=== PATIENT | female | born 1960 | race Caucasian/White ===

== ENCOUNTER 2019-03-10 09:56 | Emergency (ER) | payer MEDICAID, SELFPAY ==
[2019-03-10 09:57] VITALS: BP 171/86; PULSE 87; RESP 24; TEMP 36.8; O2SAT 97; BMI 43.7
--- NOTE | 2019-03-10 10:06 | W.ED.CHESTPA ---
HPI - Chest Pain General: Chief Complaint: Chest Pain Stated Complaint: cp sob History of Present Illness: HPI narrative: 58 yo female presents with chest pain and shortness of breath. MD complaint: chest pain Severity: moderate PFSH ED PFSH: Statuses (acute, chronic, etc) shown below reflect problem list status as previously entered and may not be historically accurate Medical History (Updated 03/10/19 @ 10:08 by Remedios Landrum) Anxiety and depression (Acute) Essential (primary) hypertension (Acute) Hyperglycemia (Acute) Mixed hyperlipidemia (Acute) Vitamin D deficiency (Acute) Surgical History (Updated 03/10/19 @ 10:08 by Remedios Landrum) History of cholecystectomy (Acute) History of gastric bypass (Acute) History of heart artery stent (Acute) History of hip surgery (Acute) History of hysterectomy (Acute) Family History (Updated 03/09/19 @ 16:56 by PRATIBHA Menendez) Grandmother Hypertension Mother Hypertension Social History (Updated 03/09/19 @ 16:[address]) Smoking and tobacco status: current every day smoker Smoking risk assessment/counseling performed?: Yes Alcohol intake: current Alcohol intake frequency: 3 or more drinks per day Desire information about alcohol rehabilitation?: No Counseling given: Yes Substance/Drug Use: unknown Desire information about substance/drug rehabilitation?: No Counseling given: No Lives independently: Yes Marital status: Single Current occupational status: employed History of recent travel: No Current gender identity: Female Coding Level of Care Code ED Angle Shearer for Michael Pool
--- NOTE | 2019-03-10 10:24 | XR_ITS ---
WS: [id number] CHEST XRAY TECHNIQUE: Portable chest. CLINICAL INFORMATION: chest pain COMPARISON: 5018 FINDINGS: Heart: Cardiomegaly. Lungs: Chronic emphysematous changes. No acute pulmonary infiltrates. No focal pneumonia. Bones: Normal visualized bony structures. XR/XR chest 1V portable 17225 IMPRESSION: Stable cardiomegaly. No acute chest findings.
--- NOTE | 2019-03-10 10:26 | W.ED.CHESTPA ---
HPI - Chest Pain General: Chief Complaint: Chest Pain Stated Complaint: cp sob Time Seen by Provider: 03/10/19 10:19 Source: patient Mode of arrival: ambulatory Limitations: no limitations History of Present Illness: HPI narrative: Patient comes in this morning with complaints of being awakened 4:00 this morning with some shortness of breath-like symptoms. Patient then started dry heaving and retching. Patient was unable to hold anything down most of the morning except for her blood pressure medicine. Patient reports some chest discomfort but no significant pain. Patient was given in route by EMS a dose of Zofran and 2 doses of nitro, which seemed to help relieve her symptoms. Patient does report feeling better except reports that nausea seems to be coming back. Patient has a history of a cholecystectomy and stent placement 1 year ago. Associated symptoms: Reports dyspnea (resolved), nausea and vomiting Review of Systems General: Reports: 10 or more systems reviewed and unremarkable except in HPI and below Card: Reports: chest pain (discomfort) Resp: Reports: shortness of breath (resolved) GI: Reports: nausea and vomiting PFSH ED PFSH: Statuses (acute, chronic, etc) shown below reflect problem list status as previously entered and may not be historically accurate Medical History Anxiety and depression (Acute) Essential (primary) hypertension (Acute) Hyperglycemia (Acute) Mixed hyperlipidemia (Acute) Vitamin D deficiency (Acute) Surgical History History of cholecystectomy (Acute) History of gastric bypass (Acute) History of heart artery stent (Acute) History of hip surgery (Acute) History of hysterectomy (Acute) Family History Grandmother Hypertension Mother Hypertension Social History Smoking and tobacco status: current every day smoker Smoking risk assessment/counseling performed?: Yes Alcohol intake: current Alcohol intake frequency: 3 or more drinks per day Desire information about alcohol rehabilitation?: No Counseling given: Yes Desire information about substance/drug rehabilitation?: No Counseling given: No Lives independently: Yes Marital status: Single Current occupational status: employed History of recent travel: No Current gender identity: Female Physical Exam Const: COMMON NORMALS: no apparent distress and oriented x3 GENERAL APPEARANCE: cooperative HENMT: COMMON NORMALS: normocephalic, external ears normal, EAC's normal, TM's normal bilaterally and external nose normal HEAD & SCALP: normal to inspection and normocephalic FACE & SINUS: normal facial exam NOSE: external nose normal GENERAL EAR: hearing not grossly impaired EXTERNAL EAR: Yes external ears normal EXTERNAL AUDITORY CANAL: EAC's normal TYMPANIC MEMBRANE: TM's normal bilaterally MOUTH: oral and palatal mucosa normal THROAT: posterior oropharynx normal Eye: COMMON NORMALS: PERRL and EOMs intact bilaterally PUPIL: Yes PERRL Neck/C-Spine: COMMON NORMALS: full ROM and no lymphadenopathy Lymph: LYMPHATIC: no lymphedema noted Chest: COMMONS NORMALS: inspection of chest normal and palpation of chest normal Resp: COMMON NORMALS: normal respiratory effort and clear to auscultation bilaterally AUSCULTATION: clear to auscultation bilaterally Cardio: COMMON NORMALS: regular rate and regular rhythm RATE: regular rate RHYTHM: regular rhythm GI: COMMON NORMALS: normal to inspection, nondistended, normoactive bowel sounds, soft to palpation and non-tender PALPATION: Yes soft and Yes tender (mild epigastric) : COMMON NORMALS: Yes no CVA tenderness BLADDER/KIDNEY EXAM: Yes no CVA tenderness Back/Pelvis: COMMON NORMALS: no CVA tenderness and thoracic and lumbar spine normal to inspection Extremity: COMMON NORMALS: normal to inspection GENERAL: No edema Neuro: COMMON NORMALS: oriented x3, moves all extremities and no focal motor deficits Psych: COMMON NORMALS: mental status grossly normal and cooperative Skin: COMMON NORMALS: no rashes or lesions noted GENERAL SKIN EXAM: no rashes or lesions noted Course ED course: 1133, patient was better but had increase nausea with wretching, and epigastric pain, patient ordered benadryl, reglan and fentanyl for distress. wjw 1212, patient resting well, states relief in discomfort. Reviewed labs and recommendation for CT to rule out PE, mesenteric clot, or other diagnosis that maybe causing distress. wjw 1324, patient continues to have symptom relief, reviewed completed exam and need for follow-up, patient agreed. wjw Vital Signs: Vital signs: Vital Signs Temperature 98.2 F 03/10/19 09:57 Pulse Rate 71 03/10/19 10:58 Respiratory Rate 17 03/10/19 10:58 Blood Pressure 131/83 03/10/19 10:58 Pulse Oximetry 95 03/10/19 10:58 MDM - Chest Pain MDM Narrative: Medical decision making narrative: Patient was brought in by EMS today for complaints of chest discomfort and persistent nausea and vomiting. Exam noted respirations are even lungs are clear to auscultation. Abdomen was tender in the epigastric area. Bowel sounds were present throughout. No CVA tenderness. No swelling in lower extremities. Vital signs were stable. Differential diagnosis included ACS, gastroenteritis, gastroesophageal reflux, pancreatitis, bowel obstruction, PE, mesenteric emboli, dissecting aorta, substance withdrawal. Laboratory values were insignificant. No change was noted in the troponin. Patient was given IV fluids for mild dehydration, and was medicated with anti-emetic and medication for pain. Patient had improvement in overall symptoms and had full relief prior to discharge. We will continue patient on medication for nausea with recommendations for dietary changes. Patient reports understanding and agreed to plan with need to follow-up. Differential Diagnosis: Cardiac arrest differential diagnosis: Likely acute myocardial infarction; Unlikely acute massive pulmonary embolism, acute respiratory failure, cardiac arrest and sudden cardiac Lab Data: Labs: Lab Results 03/10/19 03/10/19 03/10/19 Range/Units 10:36 10:36 10:36 WBC 10.6 H (4.0-10.0) 10^3/ uL RBC 4.51 (4.1-5.3) 10^6/u L Hgb 12.7 (11.5-15.3) g/dL Hct 39.8 (37.0-47.0) % MCV 88.2 (81-99) fL MCH 28.2 (28.0-34.0) pg MCHC 31.9 (30.0-36.0) g/dL RDW 15.8 H (12.1-15.1) % Plt Count 238 (130-400) 10^3/c mm MPV 10.3 (7.4-10.4) fL Neut % (Auto) 76.1 % Lymph % (Auto) 14.3 % [place] % (Auto) 8.3 % Eos % (Auto) 0.7 % Baso % (Auto) 0.3 % Neut # (Auto) 8.1 H (1.8-7.7) 10^3/u L Lymph # (Auto) 1.5 (0.8-4.8) 10^3/u L [place] # (Auto) 0.9 (0.2-0.9) 10^3/u L Eos # (Auto) 0.1 (0.0-0.8) 10^3/u L Baso # (Auto) 0.0 (0.0-0.1) 10^3/u L Nucleated RBC % (a uto) 0 % Nucleated RBCs # 0.0 /100WBC Sodium 140 (136-145) mmol/L Potassium 3.4 L (3.5-5.1) mmol/L Chloride 103 (98-107) mmol/L Carbon Dioxide 22 (22-29) mmol/L Anion Gap 18.4 (5-19) BUN 10 (6-20) mg/dL Creatinine 0.6 (0.5-0.9) mg/dL GFR Calculation 102.3 (90-130) mL/min Glucose 126 H (74-109) mg/dL Calcium 9.1 (8.6-10.0) mg/Dl Total Bilirubin 0.4 (0.15-1.2) mg/dL AST 48 H (0-32) U/L ALT 28 (0-33) U/L Alkaline Phosphata se 99 (35-105) IU/L Troponin T Baselin e 17 H (0-10) ng/mL Troponin T 120 Min [place] (0-10) ng/mL Delta Troponin T (0-10) ABS# Total Protein 6.7 (6.6-8.7) g/dL Albumin 3.8 (3.5-5.2) g/dL Globulin 2.9 (1.3-4.6) g/dL Lipase 20 (13-60) U/L Ethyl Alcohol (0-10) mg/dL 03/10/19 03/10/19 Range/Units 10:36 12:55 WBC (4.0-10.0) 10^3/ uL RBC (4.1-5.3) 10^6/u L Hgb (11.5-15.3) g/dL Hct (37.0-47.0) % MCV (81-99) fL MCH (28.0-34.0) pg MCHC (30.0-36.0) g/dL RDW (12.1-15.1) % Plt Count (130-400) 10^3/c mm MPV (7.4-10.4) fL Neut % (Auto) % Lymph % (Auto) % [place] % (Auto) % Eos % (Auto) % Baso % (Auto) % Neut # (Auto) (1.8-7.7) 10^3/u L Lymph # (Auto) (0.8-4.8) 10^3/u L [place] # (Auto) (0.2-0.9) 10^3/u L Eos # (Auto) (0.0-0.8) 10^3/u L Baso # (Auto) (0.0-0.1) 10^3/u L Nucleated RBC % (a uto) % Nucleated RBCs # /100WBC Sodium (136-145) mmol/L Potassium (3.5-5.1) mmol/L Chloride (98-107) mmol/L Carbon Dioxide (22-29) mmol/L Anion Gap (5-19) BUN (6-20) mg/dL Creatinine (0.5-0.9) mg/dL GFR Calculation (90-130) mL/min Glucose (74-109) mg/dL Calcium (8.6-10.0) mg/Dl Total Bilirubin (0.15-1.2) mg/dL AST (0-32) U/L ALT (0-33) U/L Alkaline Phosphata se (35-105) IU/L Troponin T Baselin e (0-10) ng/mL Troponin T 120 Min [place] 12.91 H (0-10) ng/mL Delta Troponin T -4.09 L (0-10) ABS# Total Protein (6.6-8.7) g/dL Albumin (3.5-5.2) g/dL Globulin (1.3-4.6) g/dL Lipase (13-60) U/L Ethyl Alcohol < 10 (0-10) mg/dL EKG Data^: EKG 1: Attestation: I personally reviewed and interpreted this EKG as follows: (1033, NSR, regular rate of 73 bpm, no ectopy, no ST elevation. wjw) EKG 2: Attestation: I personally reviewed and interpreted this EKG as follows: (1220, NSR, rate 68 bpm, no ectopy, no QT elevation, no change from earlier EKG) Discharge Plan Discharge Patient Disposition: Home, Self-Care Clinical Impression: Atypical chest pain Nausea & vomiting Qualifiers: Vomiting type: unspecified Vomiting Intractability: unspecified Qualified Code(s): R11.2 - Nausea with vomiting, unspecified Condition: Stable Prescriptions: New ondansetron HCl 4 mg tablet 4 mg PO Q6H PRN (Reason: nausea and vomiting) Qty: 10 RF: 0 meclizine 25 mg tablet 25 mg PO TID PRN (Reason: nausea and vomiting) Qty: 20 RF: 0 No Action cyclobenzaprine 10 mg tablet 10 mg PO TID PRN (Reason: Muscle Spasm) RF: 0 vitamin E 1,000 unit Capsule 1,000 unit PO DAILY RF: 0 carvedilol 25 mg tablet 25 mg PO BID RF: 0 lisinopril 20 mg tablet 20 mg PO DAILY RF: 0 hydroxyzine pamoate 50 mg capsule 50 mg PO BID PRN (Reason: Anxiety) RF: 0 gabapentin 300 mg capsule See Rx Instructions .ROUTE .COMPLEX RF: 0 aspirin 81 mg Tablet,Chewable 81 mg PO DAILY RF: 0 lorazepam 1 mg tablet 1 mg PO QPM RF: 0 rosuvastatin 40 mg tablet 40 mg PO DAILY RF: 0 duloxetine 60 mg capsule,delayed release(DR/EC) 60 mg PO BID RF: 0 Discharge Orders: Discharge Order (Routine); Ordered 03/10/19 Ordered By: Claudy Driver Referrals: Jadiel Munoz, J[employer]IOR [employer] MANAGER-C [Primary Care Provider] - Discharge Diet: Advance as tolerated Discharge Activity: Increase activity as tolerated Activity Restrictions/Additional Instructions: Drink plenty of fluids Light diet Increase diet as tolerated Avoid greasy, spicy or acidic foods Follow-up with primary care in one week for recheck Return to ER for high fever or new concern Coding Level of Care Code ED Makeup Instructor for Michael Fwira Exam Problem Focused
[2019-03-10] MEDS: ondansetron 2 mg/ML SDV 2 mL 4 MG IVP (10:29)
[2019-03-10] MEDS: sodium chloride 0.9% 500 ML 999 ML IV (10:31)
[2019-03-10 10:41] LABS: Basophils % 0.3 %; Eosinophils # 0.1 10^3/uL (0.0-0.8); Eosinophils % 0.7 %; Hematocrit 39.8 % (37.0-47.0); Hemoglobin 12.7 g/dL (11.5-15.3); Lymphocytes # 1.5 10^3/uL (0.8-4.8); Lymphocytes % 14.3 %; Mean Corpuscular HGB Conc 31.9 g/dL (30.0-36.0); Mean Corpuscular Hemoglobin 28.2 pg (28.0-34.0); Mean Corpuscular Volume 88.2 fL (81-99); Mean Platelet Volume 10.3 fL (7.4-10.4); Monocytes # 0.9 10^3/uL (0.2-0.9); Monocytes % 8.3 %; Neutrophils # 8.1 10^3/uL (1.8-7.7); Neutrophils % 76.1 %; Nucleated Red Blood Cells % 0 %; Platelet Count 238 10^3/cmm (130-400); Red Blood Count 4.51 10^6/uL (4.1-5.3); Red Cell Distribution Width 15.8 % (12.1-15.1); White Blood Count 10.6 10^3/uL (4.0-10.0)
[2019-03-10] MEDS: pantoprazole 40 mg SDV IVP (10:42)
[2019-03-10 10:57] LABS: Alanine Aminotransferase 28 U/L (0-33); Albumin Level 3.8 g/dL (3.5-5.2); Alkaline Phosphatase 99 IU/L (35-105); Anion Gap 18.4 (5-19); Aspartate Amino Transferase 48 U/L (0-32); Blood Urea Nitrogen 10 mg/dL (6-20); Calcium 9.1 mg/Dl (8.6-10.0); Carbon Dioxide 22 mmol/L (22-29); Chloride 103 mmol/L (98-107); Globulin 2.9 g/dL (1.3-4.6); Glomerular Filtration Rate 102.3 mL/min (90-130); Glucose 126 mg/dL (74-109); Lipase 20 U/L (13-60); Potassium 3.4 mmol/L (3.5-5.1); Sodium 140 mmol/L (136-145); Total Bilirubin 0.4 mg/dL (0.15-1.2); Total Protein 6.7 g/dL (6.6-8.7)
[2019-03-10 10:58] VITALS: BP 131/83; PULSE 71; RESP 17; O2SAT 95
[2019-03-10 11:00] LABS: Troponin(5th) Baseline 17 ng/mL (0-10)
--- NOTE | 2019-03-10 11:40 | PC.NURSE ---
pt continues to have upset stomach/dry heaving .ed provider notified.
--- NOTE | 2019-03-10 11:45 | CT_ITS ---
WS: [id number] CTA CHEST ABDOMEN AND PELVIS TECHNIQUE: Noncontrast plus contrast enhanced CTA of the chest, abdomen, and pelvis with coronal and sagittal reformatted images and additional MIP Images. CLINICAL INFORMATION: chest pain with epigastric pain COMPARISON: 5018 DLP: 1814.[address] scans at [facility] use at least one of these dose optimization techniques: automat ed exposure control; mA and/or kV adjustment per patient size (includes targeted exams where dose is matched to clinical indication); or iterative reconstruction. FINDINGS: Proximal main pulmonary arteries are normal. No evidence of pulmonary embolus. Normal caliber thoracic aorta. No mediastinal or hilar lymphadenopathy. Coronary calcification. No ac crow pulmonary infiltrates. Lungs are well aerated. No axillary lymphadenopathy. Diffuse fatty infiltration liver. Cholecystectomy. Postoperative changes gastric bypass. Normal sple en. Fatty atrophy of the pancreas. Adrenal glands are normal. Normal caliber abdominal aorta. Mild ao rtic calcification. Mild perinephric edema can be seen with renal insufficiency right greater than le ft. Postoperative changes bilateral THAs degrade images in the pelvis. Normal visualized sigmoid colo n. No evidence of small or large bowel obstruction. CT/CT angio chest w abd pel w con IMPRESSION: 1. No evidence of pulmonary embolus. 2. Normal caliber thoracic and abdominal aorta. No evidence of dissection. 3. Coronary calcification. 4. Cholecystectomy. 5. Diffuse fatty infiltration of the liver. 6. Prior gastric bypass. 7. No acute pulmonary infiltrates.
[2019-03-10] MEDS: diphenhydrAMINE 50 mg/mL SDV 1mL 25 MG IVP (11:47)
[2019-03-10] MEDS: metoclopramide 5 mg/mL SDV 2 mL 10 MG IVP (11:48)
[2019-03-10] MEDS: fentaNYL 50 mcg/mL INJ 2mL IVP (11:48)
[2019-03-10 12:10] LABS: Alcohol Level < 10 mg/dL (0-10)
--- NOTE | 2019-03-10 12:38 | PC.NURSE ---
pt transported to CT by wheelchair with tech
[2019-03-10] MEDS: iohexol 350 mg/mL 100 mL Btl IV (12:42)
--- NOTE | 2019-03-10 12:46 | PC.NURSE ---
pt back to unit from CT.
[2019-03-10 13:20] LABS: Troponin 5 2HR 12.91 ng/mL (0-10)
[2019-03-10 13:32] LABS: Troponin 5 2HR Delta -4.09 ABS# (0-10)
[2019-03-10 14:16] VITALS: BP 190/109; PULSE 84; O2SAT 95
[2019-03-10 14:17] VITALS: BP 154/95; PULSE 73; O2SAT 95
[2019-03-10 14:54] LABS: Bilirubin Urine 1+ (NEGATIVE); Blood Urine Neg (Negative); Glucose Urine UA Norm (Normal); Ketones Urine Negative (Negative); Leukocyte Esterase Urine Negative (Negative); Nitrate Urine Negative (Negative); Protein Urine 1+ (Negative); Urine Appearance SL Hazy (CLEAR); Urine Color Yellow (Yellow); Urobilinogen Urine 4 mg/dL (Negative)
[2019-03-10 15:03] LABS: Add Urine Culture? No; Bacteria Urine 1+; Mucus Urine 1+; Squamous Epithelial Cell Urine 15-25 (0-5)
--- NOTE | 2019-03-10 16:24 | ECG_ITS ---
Measurements Intervals [place] Rate: 68 P: 69 [place]: 173 QRS: 37 QRSD: 86 T: 54 QT: 413 QTc: 442 SINUS RHYTHM Compared to ECG 02/02/2019 14:51:42 No significant changes Electronically Signed On 03-10-2019 14:44:55 ANALYTICAL LAB ANALYST by Manolo Lo M.D. [email or web address]
== END 2019-03-10 14:17 | disposition home or self-care (01) ==
PROVIDERS: Emergency Provider Nurse Practitioner Family; Family Provider Nurse Practitioner; PCP Nurse Practitioner
DX: R07.89 Other chest pain (principal); R11.2 Nausea with vomiting, unspecified; Z79.82 Long term (current) use of aspirin; I10 Essential (primary) hypertension; E78.2 Mixed hyperlipidemia; F17.210 Nicotine dependence, cigarettes, uncomplicated
CPT/HCPCS: 36415; 71045; 71275; 74177; 80053; 80307; 81001; 83690; 84484; 85025; 93005; 96360; 96374; 96375; 99282; A9270; C9113; J1200; J2405; J2765; J3010; J7040; Q9967

== ENCOUNTER → 2019-04-03 14:48 | Outpatient (BNVA) | payer MEDICAID, SELFPAY | PROVIDERS: Family Provider Nurse Practitioner; PCP Nurse Practitioner; Visit Provider Nurse Practitioner Family | DX: R73.9 Hyperglycemia, unspecified (principal); R10.11 Right upper quadrant pain; Z09 Encounter for follow-up examination after completed treatment for conditions other than malignant neoplasm; R07.9 Chest pain, unspecified; M19.90 Unspecified osteoarthritis, unspecified site; M51.16 Intervertebral disc disorders with radiculopathy, lumbar region; Z98.84 Bariatric surgery status | CPT/HCPCS: 83036 ==

== ENCOUNTER 2019-05-04 08:09 | Day surgery (SDC) | payer MEDICAID, SELFPAY ==
[2019-05-03 09:35] VITALS: BMI 44.4
--- NOTE | 2019-05-04 08:17 | ANES.PREANE2 ---
Pre-Anesthetic Assessment Pre-Anesthetic Assessment: Height/Weight: Height 1.63 m Weight 117.594 kg Preop Diagnosis: Dysphagia/colon CA screening Proposed Procedure: Operation Date: 05/04/19 09:30 Proposed Procedures p EGD/COLON(Not Applicable) - Asa Holly MD s Colonoscopy(Not Applicable) - Asa Holly MD Was Beta Miles taken within 24 hours: Yes Last Intake: 19:00 Social: Social History: Tobacco Packs per day: 1/2 Pack years: 22 Exam: Pre-Anes Outpt Exam: alert, oriented x 3, clear to auscultation bilaterally and regular rate & rhythm Airway: Submandibular: WNL Cervical ROM: Other MP: 3 Pulmonary: Pulmonary: COPD Comments: breathing feels ER 3 months CV/HEM: CV/HEM: CAD and HTN Comments: 30years stent 05/06/17 Benigno last visit 6months stress test 3 months negative GI: Comments: dysphagia Metabolic: Metabolic: Hyperlipidemia and Morbid obesity Musc/skel: Musc/skel: Lower Back Pain Comments: right radiculopathy Neuropsych: Neuropsych: Anxiety Anesthetic Plan: ASA status: 3 Anesthesia: MAC PFSH Anesthesia PFSH: Social History Smoking and tobacco status: current every day smoker Smoking risk assessment/counseling performed?: Yes Alcohol intake: former Former alcohol use details: quit Mar 28 Desire information about alcohol rehabilitation?: No Counseling given: Yes Desire information about substance/drug rehabilitation?: No Counseling given: No Lives independently: Yes Marital status: Single Current occupational status: employed History of recent travel: No Current gender identity: Female Data Anesthesia Cardiac Studies: No Data to Display
[2019-05-04 08:43] VITALS: BP 173/110; PULSE 66; RESP 20; TEMP 36.3; O2SAT 98
[2019-05-04] MEDS: sodium chloride 0.9% 1,000 ML 30 ML (08:54)
[2019-05-04] MEDS: ondansetron 2 mg/ML SDV 2 mL 4 MG IVP (08:54)
[2019-05-04 09:58] VITALS: BP 151/96; PULSE 81; RESP 20; TEMP 37.1; O2SAT 99
--- NOTE | 2019-05-04 09:58 | W.PM.OPSUD ---
Surgery/Procedure H&P Update DATE OF PROCEDURE: May 04, 2019 DATE H&P PERFORMED: 04/14/19 H&P UPDATE INFORMATION: I have reviewed H&P completed within last 30 days, I have examined patient prior to procedure and No changes to prior documentation PREOP DIAGNOSIS: dysphagia and screening colonoscopy PLANNED PROCEDURE: Operation Date: 05/04/19 09:30 Proposed Procedures p EGD/COLON(Not Applicable) - Asa Holly MD s Colonoscopy(Not Applicable) - Asa Holly MD
[2019-05-04 10:05] VITALS: PULSE 78; RESP 14; O2SAT 100
[2019-05-04 10:10] VITALS: BP 140/91; PULSE 74; RESP 18; O2SAT 96
[2019-05-04] MEDS: ipratropium-albuterol 3 mL Neb INHALATION (10:22)
[2019-05-04 10:34] VITALS: PULSE 69
[2019-05-04 11:06] VITALS: PULSE 63; RESP 18; O2SAT 97
--- NOTE | 2019-05-04 11:36 | ANE.PACU2 ---
 Inpatient post-anesthesia follow up: Airway intact: Yes Vital signs: Temperature 98.7 F Pulse Rate 63 Respiratory Rate 18 Blood Pressure 140/91 Pulse Oximetry 97 Oxygen Delivery Me thod Room Air Oxygen Flow Rate 2 Fraction of Inspir ed Oxygen Hydration adequate: Yes Nausea and vomiting: No Pain level: 2 Mental status: Baseline Additional Comments: Kept patient longer than average to evaluate for signs of respiratory distress after desaturation event during EGD. She received albuterol for wheezing. She wass removed from supplemental O2 for over 1.5 hrs and O2 sat kept at 97-98%. Lungs clear to auscultation. No complaints of respiratory distress, sob, chest pain, etc. Informed patient to keep on alert for any signs of aspiration pneumonia including fever or shortness of breath.
== END 2019-05-04 11:34 | disposition home or self-care (01) ==
PROVIDERS: Family Provider Nurse Practitioner; PCP Nurse Practitioner; Visit Provider Surgery
PROC: 0DJD8ZZ Inspection of Lower Intestinal Tract, Via Natural or Artificial Opening Endoscopic (ICD-10-PCS; CPT 45378; 2019-05-04 09:30)
DX: Z12.11 Encounter for screening for malignant neoplasm of colon (principal); R13.10 Dysphagia, unspecified; Z79.82 Long term (current) use of aspirin; I10 Essential (primary) hypertension; E78.2 Mixed hyperlipidemia; M19.90 Unspecified osteoarthritis, unspecified site; Z95.5 Presence of coronary angioplasty implant and graft; Z98.84 Bariatric surgery status; Z82.49 Family history of ischemic heart disease and other diseases of the circulatory system; F17.210 Nicotine dependence, cigarettes, uncomplicated; K20.9 Esophagitis, unspecified; D12.4 Benign neoplasm of descending colon; K64.8 Other hemorrhoids; J44.9 Chronic obstructive pulmonary disease, unspecified; I25.10 Atherosclerotic heart disease of native coronary artery without angina pectoris; E78.5 Hyperlipidemia, unspecified; E66.01 Morbid (severe) obesity due to excess calories; Z68.41 Body mass index [BMI] 40.0-44.9, adult
CPT/HCPCS: 12345; 43239; 45380; 88305; 94640; J2405; J2704; J7030

== ENCOUNTER 2019-05-05 03:17 | Emergency (ER) | payer MEDICAID, SELFPAY ==
[2019-05-05 03:21] VITALS: BP 185/119; PULSE 90; RESP 22; TEMP 36.6; O2SAT 98; BMI 44.1
--- NOTE | 2019-05-05 03:24 | ED_ITS ---
Entered by Ila Kelley, acting as scribe for Krishna Egan MD HPI - Allergic Reaction General: Chief complaint: Allergic Reaction Stated complaint: poss allergic reaction Time Seen by Provider: 05/05/19 03:20 Source: patient Mode of arrival: ambulatory Limitations: no limitations History of Present Illness: HPI narrative: 58 yo f came to the er pov for an allergic reaction from an EGD that was done on 05/04/19 by . Pt states that she woke up feeling like her throat is closing up. There is some redness around the outside of the pts throat. complaint: allergic reaction Onset (ago): day(s) (yesterday) Exposure: unknown (egd procedure) Review of Systems General: Reports: other (negative unless marked) PFSH ED PFSH: Medical History Anxiety and depression Essential (primary) hypertension Hyperglycemia Intervertebral disc disorder with radiculopathy of lumbar region Mixed hyperlipidemia Osteoarthritis, chronic Vitamin D deficiency Surgical History H/O colonoscopy 15 years ago or more H/O esophagogastroduodenoscopy 05/04/2019: Status post gastric bypass with grade B esophagitis History of 2 sections History of cholecystectomy History of coronary artery stent placement History of gastric bypass History of hysterectomy History of left hip replacement History of right hip replacement Status post colonoscopy with polypectomy 05/04/2019: Descending colon polyp Family History Grandmother Hypertension Mother Hypertension Denies family history of Anesthesia complication Bleeding disorder Cancer Social History Smoking and tobacco status: current every day smoker Smoking risk assessment/counseling performed?: Yes Alcohol intake: former Former alcohol use details: quit Mar 28 Desire information about alcohol rehabilitation?: No Counseling given: Yes Desire information about substance/drug rehabilitation?: No Counseling given: No Lives independently: Yes Marital status: Single Current occupational status: employed History of recent travel: No Current gender identity: Female Course Vital Signs: Vital signs: Vital Signs Temperature 97.8 F 05/05/19 03:21 Pulse Rate 90 05/05/19 03:21 Respiratory Rate 22 H 05/05/19 03:21 Blood Pressure 185/119 05/05/19 03:21 Pulse Oximetry 98 05/05/19 03:21 MDM - Allergic Reaction MDM Narrative: Medical decision making narrative: Patient presents here with pain in her esophagus especially swallowing. This is likely from her EGD. Her pain is completely resolved here after a GI cocktail. Patient's x-ray of her neck and lab work are normal. She has no signs of esophageal rupture. Patient is stable for discharge and is to follow-up with primary care doctor in 3 to 5 days return if worsening. Lab Data: Labs: Lab Results 05/05/19 05/05/19 Range/Units 03:47 03:47 WBC 8.3 (4.0-10.0) 10^3/ uL RBC 5.22 (4.1-5.3) 10^6/u L Hgb 14.2 (11.5-15.3) g/dL Hct 45.3 (37.0-47.0) % MCV 86.8 (81-99) fL MCH 27.2 L (28.0-34.0) pg MCHC 31.3 (30.0-36.0) g/dL RDW 15.5 H (12.1-15.1) % Plt Count 226 (130-400) 10^3/c mm MPV 10.7 H (7.4-10.4) fL Neut % (Auto) 67.7 % Lymph % (Auto) 21.6 % [place] % (Auto) 8.8 % Eos % (Auto) 1.3 % Baso % (Auto) 0.4 % Neut # (Auto) 5.6 (1.8-7.7) 10^3/u L Lymph # (Auto) 1.8 (0.8-4.8) 10^3/u L [place] # (Auto) 0.7 (0.2-0.9) 10^3/u L Eos # (Auto) 0.1 (0.0-0.8) 10^3/u L Baso # (Auto) 0.0 (0.0-0.1) 10^3/u L Nucleated RBC % (a uto) 0 % Nucleated RBCs # 0.0 /100WBC Sodium 141 (136-145) mmol/L Potassium 3.7 (3.5-5.1) mmol/L Chloride 101 (98-107) mmol/L Carbon Dioxide 28 (22-29) mmol/L Anion Gap 15.7 (5-19) BUN 8 (6-20) mg/dL Creatinine 0.6 (0.5-0.9) mg/dL GFR Calculation 102.3 (90-130) mL/min Glucose 107 (65-115) mg/dL Calculated Osmolal ity 288 (285-295) mOsm/k g Calcium 9.9 (8.5-10.5) mg/dL Discharge Plan Discharge Patient Disposition: Home, Self-Care Clinical Impression: Odynophagia Condition: Stable Prescriptions: No Action B Complex Plus Vitamin C 40-00-13-5-300 mg capsule 1 cap PO DAILY RF: 0 cyclobenzaprine 10 mg tablet 10 mg PO TID PRN (Reason: Muscle Spasm) RF: 0 carvedilol 25 mg tablet 25 mg PO BID RF: 0 lisinopril 20 mg tablet 20 mg PO DAILY RF: 0 hydroxyzine pamoate 50 mg capsule 50 mg PO BID PRN (Reason: Anxiety) RF: 0 gabapentin 300 mg capsule See Rx Instructions .ROUTE .COMPLEX RF: 0 aspirin 81 mg Tablet,Chewable 81 mg PO DAILY RF: 0 lorazepam 1 mg tablet 1 mg PO QPM RF: 0 rosuvastatin 40 mg tablet 40 mg PO DAILY RF: 0 duloxetine 60 mg capsule,delayed release(DR/EC) 60 mg PO BID RF: 0 Plavix 75 mg tablet 75 mg PO DAILY RF: 0 cholecalciferol (vitamin D3) [Vitamin D3] 125 mcg (5,000 unit) Tablet 5,000 unit PO DAILY RF: 0 Protonix 40 mg tablet,delayed release (DR/EC) 40 mg PO BIDWM 42 Days Qty: 42 RF: 3 Discharge Orders: Discharge Order (Routine); Ordered 05/05/19 Ordered By: Krishna Egan Referrals: Jadiel Munoz, SHOP AND ALTERATION TAILOR-C [Primary Care Provider] - Discharge Diet: Advance as tolerated Discharge Activity: Resume usual activity Patient Instructions: Esophageal Spasm (ED) Coding Level of Care Code ED Baby Registry Sales Consultant for [facility] Fwd The documentation recorded by the Warren tolentino Stephanie Lyn, accurately reflects the service I personally performed and the decisions made by me, Krishna Egan MD May 05, 2019 03:17
--- NOTE | 2019-05-05 03:28 | XR_ITS ---
WS: [id number] XR soft tissue neck [id number] REASON FOR EXAM: pain FINDINGS: The airways appear to be patent in the cervical area. No lymphadenopathy or masses. The are a epiglottic fold was normal. Degenerate changes in the joints of [place]. There is degenerate disc changes C5-C6. XR/XR soft tissue neck [id number] IMPRESSION: No soft tissue masses. Cervical spondylosis Degenerated disc changes C5-C6.
[2019-05-05] MEDS: lidocaine 2% viscous 15 ML, aluminum-mag hydrox-simethicon 30 ML, sucralfate oral liq 1 GM PO (03:37)
[2019-05-05] MEDS: ondansetron 2 mg/ML SDV 2 mL 4 MG IVP (03:47)
[2019-05-05 03:57] LABS: Basophils % 0.4 %; Eosinophils # 0.1 10^3/uL (0.0-0.8); Eosinophils % 1.3 %; Hematocrit 45.3 % (37.0-47.0); Hemoglobin 14.2 g/dL (11.5-15.3); Lymphocytes # 1.8 10^3/uL (0.8-4.8); Lymphocytes % 21.6 %; Mean Corpuscular HGB Conc 31.3 g/dL (30.0-36.0); Mean Corpuscular Hemoglobin 27.2 pg (28.0-34.0); Mean Corpuscular Volume 86.8 fL (81-99); Mean Platelet Volume 10.7 fL (7.4-10.4); Monocytes # 0.7 10^3/uL (0.2-0.9); Monocytes % 8.8 %; Neutrophils # 5.6 10^3/uL (1.8-7.7); Neutrophils % 67.7 %; Nucleated Red Blood Cells % 0 %; Platelet Count 226 10^3/cmm (130-400); Red Blood Count 5.22 10^6/uL (4.1-5.3); Red Cell Distribution Width 15.5 % (12.1-15.1); White Blood Count 8.3 10^3/uL (4.0-10.0)
[2019-05-05 04:20] LABS: Anion Gap 15.7 (5-19); Blood Urea Nitrogen 8 mg/dL (6-20); Calcium 9.9 mg/dL (8.5-10.5); Carbon Dioxide 28 mmol/L (22-29); Chloride 101 mmol/L (98-107); Glomerular Filtration Rate 102.3 mL/min (90-130); Glucose 107 mg/dL (65-115); Osmolality Calculated 288 mOsm/kg (285-295); Potassium 3.7 mmol/L (3.5-5.1); Sodium 141 mmol/L (136-145)
[2019-05-05 04:34] VITALS: BP 170/104; PULSE 86; RESP 20; O2SAT 93
== END 2019-05-05 04:44 | disposition home or self-care (01) ==
PROVIDERS: Emergency Provider Emergency Medicine; Family Provider Nurse Practitioner; PCP Nurse Practitioner
DX: R13.10 Dysphagia, unspecified (principal); I10 Essential (primary) hypertension; E78.2 Mixed hyperlipidemia; M19.90 Unspecified osteoarthritis, unspecified site; M47.812 Spondylosis without myelopathy or radiculopathy, cervical region; Z87.891 Personal history of nicotine dependence
CPT/HCPCS: 12345; 70360; 80048; 85025; 96374; 96375; 99281; 99283; J2405

== ENCOUNTER 2019-06-16 11:33 | Emergency (ER) | payer MEDICAID, SELFPAY | END 2019-06-16 13:50 | disposition admitted as inpatient to this hospital (09) | LOC: ER 06-19 09:20 | PROVIDERS: Emergency Provider Family Medicine; Family Provider Nurse Practitioner; PCP Nurse Practitioner | DX: S82.851A Displaced trimalleolar fracture of right lower leg, initial encounter for closed fracture (principal); X58.XXXA Exposure to other specified factors, initial encounter; I25.10 Atherosclerotic heart disease of native coronary artery without angina pectoris; J44.9 Chronic obstructive pulmonary disease, unspecified; I10 Essential (primary) hypertension; E78.2 Mixed hyperlipidemia; Z96.643 Presence of artificial hip joint, bilateral; F17.210 Nicotine dependence, cigarettes, uncomplicated | CPT/HCPCS: 12345; 27818; 51702; 73600; 73610; 76000; 96374; 96375; 99283; 99284; 99285; J0330; J0690; J2001; J2250; J2543; J3010; J3490; J7030 ==

== ENCOUNTER 2019-06-16 11:33 | Inpatient (IN) | payer MEDICAID, SELFPAY ==
[2019-06-16] VITALS (24 sets, daily range): BP systolic 67–123; BP diastolic 42–78; PULSE 59–94; RESP 16–23; TEMP 36.6; O2SAT 93–100; BMI 44.1
--- NOTE | 2019-06-16 | SCC_ITS ---
Procedure Done: Irrigation and debridement right ankle, external fixator placement right 17.5 seconds of fluoroscopic guidance, for a cumulative dose of 0.58 mGy, was provided to Dr. Kelley by the radiology department. C-arm images of the RIGHT ankle were saved for the patient's permanent record. JANET
--- NOTE | 2019-06-16 | XR_ITS ---
WS: [id number] C-ARM RADIOGRAPHS RIGHT ANKLE; 4 IMAGES HISTORY: OR PICS COMPARISON: Study earlier the same day. Intraoperative imaging during external fixator device placement. Fracture at the ankle is in good ali gnment. XR/XR ankle RT 2V [id number] IMPRESSION: Intraoperative imaging during external fixator device placement to stabilize a trimalleolar fracture.
[2019-06-16] MEDS: fentaNYL 50 mcg/mL INJ 2mL 25 MCG IVP ×2 (11:30→12:36)
[2019-06-16 11:43] LABS: Basophils # 0.1 10^3/uL (0.0-0.1); Basophils % 0.4 %; Eosinophils # 0.2 10^3/uL (0.0-0.8); Eosinophils % 1.3 %; Hematocrit 44.8 % (37.0-47.0); Hemoglobin 13.6 g/dL (11.5-15.3); Lymphocytes # 2.4 10^3/uL (0.8-4.8); Lymphocytes % 17.6 %; Mean Corpuscular HGB Conc 30.4 g/dL (30.0-36.0); Mean Corpuscular Hemoglobin 27.9 pg (28.0-34.0); Mean Platelet Volume 10.9 fL (7.4-10.4); Monocytes # 0.8 10^3/uL (0.2-0.9); Monocytes % 5.5 %; Neutrophils # 10.3 10^3/uL (1.8-7.7); Neutrophils % 74.8 %; Nucleated Red Blood Cells % 0 %; Platelet Count 278 10^3/cmm (130-400); Red Blood Count 4.87 10^6/uL (4.1-5.3); Red Cell Distribution Width 17.2 % (12.1-15.1); White Blood Count 13.7 10^3/uL (4.0-10.0)
[2019-06-16] MEDS: fentaNYL 50 mcg/mL INJ 2mL IVP (11:45)
--- NOTE | 2019-06-16 11:47 | XR_ITS ---
WS: [id number] RIGHT ANKLE: 1 VIEW(S) TECHNIQUE: AP view HISTORY: post-reduction COMPARISON: None available. Fracture dislocation at the ankle. Oblique fracture distal fibula with lateral angulation of the distal fragment. Fracture extends to th e tibiotalar joint space. There is also a fracture through the medial malleolus with displacement lat erally by 16 mm. Interruption of the ankle mortise. Suspect posterior malleolus fracture also. No significant degenerative changes at the joint spaces. Large amount of soft tissue edema. XR/XR ankle RT 1V [id number] IMPRESSION: Fracture dislocation at the ankle.
[2019-06-16 11:53] LABS: INR 0.94 (0.8-1.2); Partial Thromboplastin Time 26.2 SECONDS (23.9-36.7)
--- NOTE | 2019-06-16 11:53 | W.ED.EXTPRO ---
HPI - Extremity Problem General: Chief complaint: Extremity Injury, Lower Stated complaint: Fall Time Seen by Provider: 06/16/19 11:51 History of Present Illness: HPI Narrative: 59-year-old female brought in by air ambulance from the [facility]. She was found in her home with an open right ankle fracture with pools of blood about her. The estimated 250-300 mL of blood in the home. Additionally she had fecal incontinence and there was a streaks and smears of blood in the stool about the house where his she had crawled to get assistance. She admits to drinking heavily last night and usually drinks 4-5 large glasses of vodka per day. MD Complaint: extremity pain and extremity swelling Onset (ago): day(s) (1) Pain Consistency: constant Location: right Severity scale (1-10): 10 Quality: sharp Radiation: none Relieving factors: immobilization and rest Exacerbating factors: palpation Associated symptoms: Deny chest pain, fever(s) or rash Context: immobilization (Immobilized in the field) Review of Systems Const: Denies: fever, chills, body aches, change in appetite, fatigue or malaise ENMT: Denies: throat pain, ear pain, nasal discharge or nasal congestion Card: Denies: chest pain, edema, shortness of breath on exertion or shortness of breath when lying down Resp: Denies: shortness of breath, productive cough or non-productive cough GI: Denies: abdominal pain, nausea, vomiting, vomiting blood, coffee grounds in vomit, diarrhea, constipation, bloating, blood in stool or black tarry stool : Denies: flank pain, difficulty urinating, painful urination, urinary frequency or urinary urgency Skin/Breast: Denies: rash or itching PFSH ED PFSH: Medical History Alcohol abuse Anxiety and depression CAD (coronary artery disease) Chronic obstructive pulmonary disease, unspecified Essential (primary) hypertension Hyperglycemia Intervertebral disc disorder with radiculopathy of lumbar region Mixed hyperlipidemia Morbid obesity Osteoarthritis, chronic Vitamin D deficiency Surgical History H/O esophagogastroduodenoscopy 05/04/2019: Status post gastric bypass with grade B esophagitis History of 2 sections History of cholecystectomy History of coronary artery stent placement History of gastric bypass History of hysterectomy History of left hip replacement History of right hip replacement Status post colonoscopy with polypectomy 05/04/2019: Descending colon polyp Family History Grandmother Hypertension Mother Hypertension Denies family history of Anesthesia complication Bleeding disorder Cancer Social History Smoking and tobacco status: current every day smoker cigarettes Packs smoked per day: 0.5 Second hand smoke exposure: Yes Smoking risk assessment/counseling performed?: Yes Alcohol intake: current Alcohol intake frequency: 3 or more drinks per day Alcohol type: hard liquor Alcohol use comment: drinks vodka Last alcohol use date: 06/16/19 Substance/Drug Use: never Caregiver/support person: No Lives independently: Yes Household members: significant other Marital status: Single Number of children: 3 service: No Current occupational status: unemployed History of recent travel: No Current gender identity: Female Physical Exam Const: COMMON NORMALS: no apparent distress GENERAL APPEARANCE: cooperative and comfortable HENMT: COMMON NORMALS: normocephalic, head/scalp atraumatic, hearing grossly normal bilaterally, external ears normal, EAC's normal, TM's normal bilaterally, nasal mucous membranes and turbinates normal, moist oral mucous membranes and oropharynx normal HEAD & SCALP: normocephalic and atraumatic NOSE: nasal mucous membranes and turbinates normal EXTERNAL EAR: Yes external ears normal EXTERNAL AUDITORY CANAL: EAC's normal TYMPANIC MEMBRANE: TM's normal bilaterally Eye: COMMON NORMALS: PERRL, EOMs intact bilaterally, conjunctivae normal and no scleral icterus CONJUNCTIVA: Yes conjunctivae normal PUPIL: Yes PERRL Neck/C-Spine: COMMON NORMALS: full ROM, no lymphadenopathy, supple and no JVD Lymph: LYMPHATIC: no lymphadenopathy noted and no lymphedema noted Resp: COMMON NORMALS: normal respiratory effort, no retractions, no use of accessory muscles and clear to auscultation bilaterally AUSCULTATION: clear to auscultation bilaterally Cardio: COMMON NORMALS: no JVD, regular rate, regular rhythm and no murmurs RATE: regular rate RHYTHM: regular rhythm GI: COMMON NORMALS: soft to palpation and no hepatosplenomegaly AUSCULTATION: Yes normoactive bowel sounds PALPATION: Yes soft, No tender, No guarding and Yes no hepatosplenomegaly Extremity: COMMON NORMALS: normal to inspection, normal capillary refill, no clubbing, cyanosis or edema, no calf tenderness and no pedal edema OTHER: Obvious deformity of the right ankle with a large open laceration with no active bleeding. I can palpated dorsalis pedis pulse but is difficult to get a posterior tibialis pulse due to swelling. The laceration begins at the distal tibia and radiates down to the medial malleolus. Skin: COMMON NORMALS: no rashes or lesions noted GENERAL SKIN EXAM: no rashes or lesions noted Procedures Procedural Sedation Indication: fracture/dislocation reduction Preparation: athletic monitor applied, pulse oximeter, supplemental O2 applied, suction/airway equipment at bedside and IV secured Fentanyl: IV Fentanyl dose (mcg): 50 (To 25 mcg doses) IV Etomidate dose (mg): 20 (2 x 10 mg doses) Patient Tolerated Procedure: well Complications: Respiratory Depression-Repositioning Required Interventions: oxygen applied and airway repositioned Additional Comments: Initial attempt at reduction we shot a bedside film it was not adequately reduced second dose of etomidate and fentanyl were given and fracture was repositioned and resplinted this time we had excellent reduction. Etomidate was given at 10 mg and fentanyl 25mcg both are repeated x1 with the attempt at re-reduction. I believe the first attempt it was just difficult to maintain reduction due to the instability of the fracture. Course Vital Signs: Vital signs: Vital Signs Temperature 100.4 F H 06/17/19 05:19 Pulse Rate 99 06/17/19 08:29 Respiratory Rate 29 H 06/17/19 09:06 Blood Pressure 127/71 06/17/19 05:19 Pulse Oximetry 96 06/17/19 09:06 MDM - Extremity (Nontraumatic) MDM Narrative: Medical decision making narrative: Fracture was reduced wound was examined and re-bandaged in the splint. There is excellent reduction of the fracture after the second attempt. Discussed with Dr. Kelley as well as with hospitalist will admit to the hospitalist Dr. Kelley will consult for fracture repair. Tetanus updated Ancef given also discussed Dr. Kelley that the patient is on Plavix. Lab Data: Labs: Lab Results 06/16/19 06/16/19 06/16/19 Range/Units 11:28 11:28 12:25 WBC 13.7 H (4.0-10.0) 10^3/ uL RBC 4.87 (4.1-5.3) 10^6/u L Hgb 13.6 (11.5-15.3) g/dL Hct 44.8 (37.0-47.0) % MCV 92.0 (81-99) fL MCH 27.9 L (28.0-34.0) pg MCHC 30.4 (30.0-36.0) g/dL RDW 17.2 H (12.1-15.1) % Plt Count 278 (130-400) 10^3/c mm MPV 10.9 H (7.4-10.4) fL Neut % (Auto) 74.8 % Lymph % (Auto) 17.6 % [place] % (Auto) 5.5 % Eos % (Auto) 1.3 % Baso % (Auto) 0.4 % Neut # (Auto) 10.3 H (1.8-7.7) 10^3/u L Lymph # (Auto) 2.4 (0.8-4.8) 10^3/u L [place] # (Auto) 0.8 (0.2-0.9) 10^3/u L Eos # (Auto) 0.2 (0.0-0.8) 10^3/u L Baso # (Auto) 0.1 (0.0-0.1) 10^3/u L Nucleated RBC % (a uto) 0 % Nucleated RBCs # 0.0 /100WBC PT 12.80 (10.5-13.3) SECO NDS INR 0.94 (0.8-1.2) APTT 26.2 (23.9-36.7) SECO NDS Sodium (136-145) mmol/L Potassium (3.5-5.1) mmol/L Chloride (98-107) mmol/L Carbon Dioxide (22-29) mmol/L Anion Gap (5-19) BUN (8-23) mg/dL Creatinine (0.5-0.9) mg/dL GFR Calculation (90-130) mL/min Glucose (65-115) mg/dL Calculated Osmolal ity (285-295) mOsm/k g Calcium (8.5-10.5) mg/dL Total Bilirubin (0.15-1.2) mg/dL AST (0-32) U/L ALT (0-33) U/L Alkaline Phosphata se (35-105) IU/L Total Protein (6.6-8.7) g/dL Albumin (3.5-5.2) g/dL Globulin (1.3-4.6) g/dL Urine Color Yellow (Yellow) Urine Appearance Clear (CLEAR) Urine pH 5 (5-7) Ur Specific Gravit y 1.015 (1.005-1.030) Urine Protein Neg (Negative) Urine Glucose (UA) Norm (Normal) Urine Ketones Negative (Negative) Urine Blood Neg (Negative) Urine Nitrate Negative (Negative) Urine Bilirubin Neg (NEGATIVE) Urine Urobilinogen 1 H (Negative) mg/dL Ur Leukocyte Kitty ase Negative (Negative) Urine RBC None (0-2) /hpf Urine WBC 0-4 H (0-5) /hpf Ur Squamous Epith Cells 0-4 H (0-5) Amorphous Sediment 1+ Urine Bacteria 1+ H (NONE) Fine Granular Cast s 0-4 H /lpf Urine Mucus 2+ Urine Opiates Scre en (Negative) ng/mL Ur Barbiturates Sc reen (Negative) ng/mL Ur Phencyclidine S crn (Negative) ng/mL Ur Amphetamines Sc reen (Negative) ng/mL U Benzodiazepines Scrn (Negative) ng/mL Urine Cocaine Scre en (Negative) ng/mL U Marijuana (THC) Screen (Negative) ng/mL Ethyl Alcohol (0-10) mg/dL 06/16/19 06/16/19 Range/Units 12:25 12:26 WBC (4.0-10.0) 10^3/ uL RBC (4.1-5.3) 10^6/u L Hgb (11.5-15.3) g/dL Hct (37.0-47.0) % MCV (81-99) fL MCH (28.0-34.0) pg MCHC (30.0-36.0) g/dL RDW (12.1-15.1) % Plt Count (130-400) 10^3/c mm MPV (7.4-10.4) fL Neut % (Auto) % Lymph % (Auto) % [place] % (Auto) % Eos % (Auto) % Baso % (Auto) % Neut # (Auto) (1.8-7.7) 10^3/u L Lymph # (Auto) (0.8-4.8) 10^3/u L [place] # (Auto) (0.2-0.9) 10^3/u L Eos # (Auto) (0.0-0.8) 10^3/u L Baso # (Auto) (0.0-0.1) 10^3/u L Nucleated RBC % (a uto) % Nucleated RBCs # /100WBC PT (10.5-13.3) SECO NDS INR (0.8-1.2) APTT (23.9-36.7) SECO NDS Sodium 144 (136-145) mmol/L Potassium 4.1 (3.5-5.1) mmol/L Chloride 107 (98-107) mmol/L Carbon Dioxide 23 (22-29) mmol/L Anion Gap 18.1 (5-19) BUN 14 (8-23) mg/dL Creatinine 0.8 (0.5-0.9) mg/dL GFR Calculation 73.2 L (90-130) mL/min Glucose 121 H (65-115) mg/dL Calculated Osmolal ity 295 (285-295) mOsm/k g Calcium 8.6 (8.5-10.5) mg/dL Total Bilirubin 0.2 (0.15-1.2) mg/dL AST 44 H (0-32) U/L ALT 22 (0-33) U/L Alkaline Phosphata se 76 (35-105) IU/L Total Protein 6.4 L (6.6-8.7) g/dL Albumin 3.3 L (3.5-5.2) g/dL Globulin 3.1 (1.3-4.6) g/dL Urine Color (Yellow) Urine Appearance (CLEAR) Urine pH (5-7) Ur Specific Gravit y (1.005-1.030) Urine Protein (Negative) Urine Glucose (UA) (Normal) Urine Ketones (Negative) Urine Blood (Negative) Urine Nitrate (Negative) Urine Bilirubin (NEGATIVE) Urine Urobilinogen (Negative) mg/dL Ur Leukocyte Kitty ase (Negative) Urine RBC (0-2) /hpf Urine WBC (0-5) /hpf Ur Squamous Epith Cells (0-5) Amorphous Sediment Urine Bacteria (NONE) Fine Granular Cast s /lpf Urine Mucus Urine Opiates Scre en Negative (Negative) ng/mL Ur Barbiturates Sc reen Negative (Negative) ng/mL Ur Phencyclidine S crn Negative (Negative) ng/mL Ur Amphetamines Sc reen Negative (Negative) ng/mL U Benzodiazepines Scrn Negative (Negative) ng/mL Urine Cocaine Scre en Negative (Negative) ng/mL U Marijuana (THC) Screen Negative (Negative) ng/mL Ethyl Alcohol 206 H (0-10) mg/dL Discharge Plan Discharge Admit Provider: Romeo Kelley Discharge Date/Time: 06/16/19 13:50 Coding Level of Care Code ED Vocational Services Specialist for Michael Pool
[2019-06-16] MEDS: ceFAZolin 1,000 MG in sodium chloride 0.9% (plus) 50 ML 100 MG IV ×2 (11:57→20:37)
--- NOTE | 2019-06-16 12:04 | PC.NURSE ---
Patient had been medicated prior and cannot answer a lot of my questions.
--- NOTE | 2019-06-16 12:28 | PC.NURSE ---
Dr Kelley and Dr Patel at bedside.
--- NOTE | 2019-06-16 12:39 | XR_ITS ---
WS: [id number] RIGHT ANKLE: 1 VIEW(S) TECHNIQUE: Lateral view. HISTORY: open fracture COMPARISON: None available. Partial subluxation at the tibiotalar joint space. Talus is slightly anterior with respect to the tib ial plafond. Posterior tibial fragment is not identified. There is a displaced bone fragment above th e talus which is probably from the fibula. Small spur. XR/XR ankle RT 1V [id number] IMPRESSION: Partial anterior subluxation of the talus with respect to the tibia. Fracture involving the posterior talus. The displaced fragment is not identifie d. Additional fracture noted of the distal fibula which was described on a prio r radiograph.
--- NOTE | 2019-06-16 12:39 | XR_ITS ---
WS: [id number] RIGHT ANKLE: 3 VIEW(S) TECHNIQUE: AP, oblique(s) and lateral. HISTORY: open fracture COMPARISON: Study earlier the same day. Significant improvement after postreduction. Comminuted oblique fibular fracture is in near normal alignment. Transverse medial malleolus fracture is also in near normal alignment with minimal separation. Posterior talar fracture is in good alignment. Mild widening of the ankle mortise measuring up to 9 mm medially. The partial dislocation has been reduced at the tibiotalar joint. Extensive soft tissue injury. There is air in the soft tissue posterior medially from an open wound. XR/XR ankle RT min 3V* [id number] IMPRESSION: 1. Trimalleolar fracture has been reduced and now in near normal alignment. 2. Interruption of the ankle mortise.
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
[2019-06-16 12:51] LABS: Bilirubin Urine Neg (NEGATIVE); Blood Urine Neg (Negative); Glucose Urine UA Norm (Normal); Ketones Urine Negative (Negative); Leukocyte Esterase Urine Negative (Negative); Nitrate Urine Negative (Negative); Protein Urine Neg (Negative); Specific Gravity, Urine 1.015 (1.005-1.030); Urine Appearance Clear (CLEAR); Urine Color Yellow (Yellow); Urobilinogen Urine 1 mg/dL (Negative); pH Urine 5 (5-7)
[2019-06-16] MEDS: sodium chloride 0.9% 1,000 ML 999 ML IV ×2 (12:53→17:52)
[2019-06-16 12:54] LABS: Bacteria Urine 1+; Mucus Urine 2+; Squamous Epithelial Cell Urine 0-4 (0-5); WBC Urine 0-4 /hpf (0-5)
[2019-06-16 12:55] LABS: Add Urine Culture? No; Amorphous Sediment Urine 1+; Amphetamines Screen Urine Negative (Negative); Barbiturates Screen Urine Negative (Negative); Benzodiazepines Screen Urine Negative (Negative); Cocaine Screen Urine Negative (Negative); Fine Granular Casts Urine 0-4 /lpf; Opiate Screen Urine Negative (Negative); PCP Screen Urine Negative (Negative); THC Screen Urine Negative (Negative)
[2019-06-16] MEDS: piperacillin-tazobactam 3.375 GM in sodium chloride 0.9% (plus) 50 ML IV (12:55)
--- NOTE | 2019-06-16 12:58 | PM.HP ---
Providers/Chief Complaint Admitting Physician: Amanda Johnson MD Primary Care Provider: Jadiel Munoz, IT SYSTEMS ANALYST-C Chief Complaint: Fall, alcohol intoxication History of Present Illness Zenaida Madsen is a 59 year old female with PMHx of EtOH abuse, HTN, Hyperlipidemia, Chronic smoker, CAD s/p stenting; presents via airevac after being found on the floor at home for an unknown period of time earlier today with noted open ankle fracture, with open wound contaminated by fecal matter and noted bleeding. Per verbal report received it seems that patient had bouts of fecal incontinence and at some point had woken up enough to scoot around her home trying to find her cell phone to call for help. She is unable to provide further details as she cannot recall any more information. She is encountered in the ER following reduction of her trimalleolar fracture. She is very tearful and there is notable odor of alcohol on her breath and she does have pain in her RLE. Catheter has been placed. She is currently receiving IV fluid hydration. Labs indicate white count of 13.7, hemoglobin of 13.6, normal chemistry, normal coags, AST of 44, ALT of 22, imaging shows displaced trimalleolar fracture on the right. Patient reportedly received a dose of tetanus [address] Kelley is currently assessing the patient in the ER. Plan is for OR this afternoon for surgical debridement and irrigation of the wound. During the process of preparing patient to go to the OR she was noted to be hypotensive likely secondary to sedation as well as bleeding so requested continuation of IV fluid hydration and addition of pressor support. Then received a phone call stating that patient had a brief episode of unresponsiveness and hypoxia, placed on non-rebreather for a brief period of time. Returned to assess the patient at bedside in the ER, she is awake, alert, anesthesia and or team are at bedside. Pressor support is running, patient is now on nasal cannula, blood pressure is improving. Now being taken to OR. Patient's alcoholic history and high risk for withdrawal I have requested ICU admission following return from the OR. Review of Systems General: Reports: other (very limited due to patient's intoxication) ENMT: Reports: dry mouth Resp: Reports: shortness of breath GI: Denies: abdominal pain, nausea, vomiting or diarrhea Musc: Reports: extremity pain (R ankle) Psych: Reports: anxiety Medications/Allergies Home Medications Medication Instructions Recorded Confirmed Last Taken Type celecoxib [Celebrex] 200 mg PO BID 06/16/19 06/16/19 Unknown History hydrochlorothiazide 12.5 mg PO DAILY 06/16/19 06/16/19 Unknown History Allergies Allergy/AdvReac Type Severity Reaction Status Date / Time ciprofloxacin AdvReac Unknown ADR-Swelling Verified 04/14/19 11:35 of the Eye doxycycline AdvReac Unknown ADR-Vomitin Verified 04/14/19 11:36 g PFSH Acute PFSH: Medical History Alcohol abuse Anxiety and depression CAD (coronary artery disease) Chronic obstructive pulmonary disease, unspecified Essential (primary) hypertension Hyperglycemia Intervertebral disc disorder with radiculopathy of lumbar region Mixed hyperlipidemia Morbid obesity Osteoarthritis, chronic Vitamin D deficiency Surgical History H/O esophagogastroduodenoscopy 05/04/2019: Status post gastric bypass with grade B esophagitis History of 2 sections History of cholecystectomy History of coronary artery stent placement History of gastric bypass History of hysterectomy History of left hip replacement History of right hip replacement Status post colonoscopy with polypectomy 05/04/2019: Descending colon polyp Family History Grandmother Hypertension Mother Hypertension Denies family history of Anesthesia complication Bleeding disorder Cancer Social History Smoking and tobacco status: current every day smoker cigarettes Packs smoked per day: 0.5 Second hand smoke exposure: Yes Smoking risk assessment/counseling performed?: Yes Alcohol intake: current Alcohol intake frequency: 3 or more drinks per day Alcohol type: hard liquor Last alcohol use date: 06/16/19 Caregiver/support person: No Lives independently: Yes Household members: significant other Marital status: Single Number of children: 3 service: No Current occupational status: unemployed History of recent travel: No Current gender identity: Female Vitals/I&O/Wt Last Vital Signs Pulse 71 06/16/19 12:01 Resp 16 06/16/19 12:01 BP 110/65 06/16/19 12:01 Pulse Ox 99 06/16/19 12:01 06/15/19 06/16/1920 22:59 06:59 14:59 Intake Total 50 / 50 Balance 50 / 50 Weight last 48 hrs Weight 116.573 kg Physical Exam Const: COMMON NORMALS: no apparent distress and oriented x3 GENERAL APPEARANCE: cooperative, comfortable and odor of alcohol detected NUTRITIONAL APPEARANCE: obese morbidly obese ORIENTATION/CONSCIOUSNESS: Yes awake HENMT: COMMON NORMALS: normocephalic, head/scalp atraumatic and hearing grossly normal bilaterally HEAD & SCALP: normocephalic and atraumatic MOUTH: moist mucous membranes abnormal Details: parched Eye: COMMON NORMALS: PERRL, EOMs intact bilaterally and conjunctivae normal CONJUNCTIVA: Yes conjunctivae normal PUPIL: Yes PERRL Neck/C-Spine: COMMON NORMALS: full ROM GENERAL: Yes normal visual inspection and Yes trachea midline Chest: COMMONS NORMALS: inspection of chest normal Resp: COMMON NORMALS: normal respiratory effort, no retractions and no use of accessory muscles EFFORT & INSPECTION: Yes able to speak in complete sentences, Yes symmetric chest movement and No tachypneic AUSCULTATION: diminished lung sounds Cardio: COMMON NORMALS: regular rate, regular rhythm, S1 normal heart sound, S2 normal heart sound and no murmurs RATE: regular rate RHYTHM: regular rhythm HEART SOUNDS: S1 normal and S2 normal OTHER: -hypotensive GI: COMMON NORMALS: normal to inspection, nondistended, normoactive bowel sounds, soft to palpation and non-tender INSPECTION: Yes central obesity PALPATION: Yes soft : BLADDER/KIDNEY EXAM: Yes catheter in place Catheter type (Female): urethral Extremity: NARRATIVE EXTREMITY EXAM: -RLE: in bulky dressing following fracture reduction; dressing saturated with blood Neuro: COMMON NORMALS: oriented x3, moves all extremities, no focal motor deficits and no sensory deficits noted Psych: COMMON NORMALS: mental status grossly normal, thought process normal, cooperative and speech normal SPEECH: Yes normal speech MOOD & AFFECT: Yes anxious THOUGHT PROCESS: normal thought process Skin: COMMON NORMALS: no rashes or lesions noted, no jaundice, no petechiae and no mottling GENERAL SKIN EXAM: no rashes or lesions noted Urinary Catheter Management^: Jacobo: Cath Placed During This Visit: yes Urethral Indwelling: Yes Reason for Continuing Indwelling Catheter: Required Immobilization for Trauma or Surgery or Anesthesia Urinary Catheter Date of Insertion: 06/16/19 Urinary Catheter Time of Insertion: 12:24 Data : 06/16/19 11:28 A&P Assessment and plan (1) Open right trimalleolar fracture: -secondary to fall while intoxicated -had open wound with contamination from fecal matter -Received a dose of tetanus -fracture reduced in ED -Ortho consult by Dr. Kelley appreciated; OR today for aggressive surgical debridement and irrigation -got dose of Cefazolin; will give dose of Zosyn secondary to fecal contamination for anaerobic coverage -pain control as needed; received some sedation during reduction process -Noted hypotension likely secondary to sedation, will continue IV fluid hydration, pressor support as needed to maintain MAP > 65 -Close monitoring of vital signs -Keep NPO in anticipation of surgical intervention -Jacobo catheter placed in ER; assess daily for removal -Noted leukocytosis with neutrophilic predominance -Chemistry, UA negative -imaging noted, none done for cervical spine Status: Acute Qualifiers: Encounter type: initial encounter Open fracture type: open type I or II Qualified Code(s): S82.851B - Displaced trimalleolar fracture of right lower leg, initial encounter for open fracture type I or II (2) Hypotension: -Noted hypotension likely secondary to sedation, will continue IV fluid hydration, pressor support as needed to maintain MAP > 65 Status: Acute Qualifiers: Hypotension type: other hypotension type Qualified Code(s): I95.89 - Other hypotension (3) Essential (primary) hypertension: -now hypotensive secondary to sedation given for fracture reduction -close monitoring of vital signs -pressor support as needed to maintain MAP > 65 -IVF hydration -hold oral antihypertensives Status: Chronic (4) Alcohol abuse: -Long history of documented chronic alcohol abuse; acutely intoxicated resulting in fall and subsequent right trimalleolar fracture -EtOH level-206 -Very high risk for alcohol withdrawal -CIWA protocol, thiamine/MVI/folate daily when PO appropriate -fall/seizure/aspiration precautions Status: Chronic (5) CAD (coronary artery disease): -has known hx of CAD with prior stenting -in light of bleeding associated with fracture, will hold ASA, plavix for now Status: Chronic Qualifiers: Coronary Disease-Associated Artery/Lesion type: [place] artery [place] vs. transplanted heart: [place] heart Associated angina: angina presence unspecified Qualified Code(s): I25.10 - Atherosclerotic heart disease of [place] coronary artery without angina pectoris (6) Morbid obesity: -BMI-44 kg/m2 Status: Chronic (7) Chronic obstructive pulmonary disease, unspecified: -no acute exacerbation -supplemental oxygen as needed -monitor respiratory status Status: Chronic Qualifiers: COPD type: unspecified COPD Qualified Code(s): J44.9 - Chronic obstructive pulmonary disease, unspecified (8) Anxiety and depression: -hold scheduled Ativan and hydroxyzine due to hypotension Status: Chronic (9) Osteoarthritis, chronic: Status: Chronic Additional A&P Information -Hyperlipidemia; on statin -Chronic smoker -GERD with recent EGD showing esophagitis and colonoscopy with polypectomy (adenomatous polyp) -GI ppx with PPI -DVT ppx with Lovenox post-op, with caution given bleeding -Dispo: may need SNF placement -Code status: FULL code -Due to acute alcohol intoxication, risk of severe alcohol withdrawal will admit to ICU following return from the OR Attestations Medical Necessity Statement*: Zenaida Madsen's hospital stay will require greater than 2 midnights for management of open right trimalleolar fracture requiring surgical debridement and irrigation; hypotension and acute alcohol intoxication. Time Spent in Patient Care: Greater than 35 minutes (>than 50% of time spent in counselling and/or direct pt care on unit). Critical Care Time: The high probability of a clinically significant, sudden or life threatening deterioration of the patient's [cardiovascular, respiratory] system(s) required my full and direct attention, intervention and personal management. The critical care time is as shown. 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 transplanted heart: [place] heart Associated angina: angina presence unspecified Morbid obesity E66.01 Chronic obstructive pulmonary disease, unspecified J44.9 COPD type: unspecified COPD Anxiety and depression F41.9; F32.9 Osteoarthritis, chronic M19.90
[2019-06-16 13:01] LABS: Alanine Aminotransferase 22 U/L (0-33); Albumin Level 3.3 g/dL (3.5-5.2); Alcohol Level 206 mg/dL (0-10); Alkaline Phosphatase 76 IU/L (35-105); Anion Gap 18.1 (5-19); Aspartate Amino Transferase 44 U/L (0-32); Blood Urea Nitrogen 14 mg/dL (8-23); Calcium 8.6 mg/dL (8.5-10.5); Carbon Dioxide 23 mmol/L (22-29); Chloride 107 mmol/L (98-107); Globulin 3.1 g/dL (1.3-4.6); Glomerular Filtration Rate 73.2 mL/min (90-130); Glucose 121 mg/dL (65-115); Osmolality Calculated 295 mOsm/kg (285-295); Potassium 4.1 mmol/L (3.5-5.1); Sodium 144 mmol/L (136-145); Total Bilirubin 0.2 mg/dL (0.15-1.2); Total Protein 6.4 g/dL (6.6-8.7)
--- NOTE | 2019-06-16 13:40 | ANES.PREANE2 ---
Pre-Anesthetic Assessment Pre-Anesthetic Assessment: Height/Weight: Height 1.63 m Weight 116.573 kg Pulse Resp BP Pulse Ox 62 16 67/42 100 06/16/19 13:00 06/16/19 12:58 06/16/19 13:00 06/16/19 13:00 Preop Diagnosis: dysphagia and screening colonoscopy Proposed Procedure: Operation Date: 06/16/19 13:00 Proposed Procedures p ORIF Ankle(Not Applicable) - Romeo Kelley MD Familial anesthetic complications: Desaturation during EGD due to excess couging Was Beta Miles taken within 24 hours: Yes Last intake: Unsure of npo status. possibly 0730 am Social: Social History: Alcohol Comment: patient was intoxicated during injury Exam: Pre-Anes Outpt Exam: alert, oriented x 3, clear to auscultation bilaterally and regular rate & rhythm Pulmonary: Pulmonary: COPD CV/HEM: CV/HEM: CAD and HTN Comments: s/p stent, cp, sob 12.19 stress test - nromal, EF 63% no wall abnormalities GI: Comments: gastric bypass Neuropsych: Comments: LOC, intoxication Anesthetic Plan: ASA status: 4E Anesthesia: General Other: RSI Risk of > 500 ml blood loss (7ml/kg in children): No Other Pertinent Information: Patient poor historian Meds/Allergies Current Medications: Current Medications Generic Name Dose Route Start Last Admin Trade Name Freq PRN Reason Stop Dose Admin Sodium Chloride 1,000 mls @ 999 m ls/hr 06/16/19 12:51 06/16/19 12:53 Sodium Chloride 0.9% IV 06/16/19 13:51 999 mls/hr .Q1H1M ONE Administration Norepinephrine Bit artrate 4 mg 254 mls @ 0 mls/h r 06/16/19 13:00 06/16/19 13:17 / Dextrose IV 10 mcg/min .Q0M DANYEL 38.1 mls/hr Administration Protocol Per Protocol PFSH Anesthesia PFSH: Medical History Alcohol abuse Anxiety and depression CAD (coronary artery disease) Chronic obstructive pulmonary disease, unspecified Essential (primary) hypertension Hyperglycemia Intervertebral disc disorder with radiculopathy of lumbar region Mixed hyperlipidemia Morbid obesity Osteoarthritis, chronic Vitamin D deficiency Surgical History H/O esophagogastroduodenoscopy 05/04/2019: Status post gastric bypass with grade B esophagitis History of 2 sections History of cholecystectomy History of coronary artery stent placement History of gastric bypass History of hysterectomy History of left hip replacement History of right hip replacement Status post colonoscopy with polypectomy 05/04/2019: Descending colon polyp Family History Grandmother Hypertension Mother Hypertension Denies family history of Anesthesia complication Bleeding disorder Cancer Social History Smoking and tobacco status: current every day smoker cigarettes Packs smoked per day: 0.5 Second hand smoke exposure: Yes Smoking risk assessment/counseling performed?: Yes Alcohol intake: current Alcohol intake frequency: 3 or more drinks per day Alcohol type: hard liquor Alcohol use comment: drinks vodka Last alcohol use date: 06/16/19 Substance/Drug Use: never Caregiver/support person: No Lives independently: Yes Household members: significant other Marital status: Single Number of children: 3 service: No Current occupational status: unemployed History of recent travel: No Current gender identity: Female Data Anesthesia CBC & Chem 7: 06/16/19 11:28 06/16/19 12:26 Other Labs: Laboratory Results - last 48 hr 06/16/19 06/16/19 06/16/19 11:28 11:28 12:25 WBC 13.7 H RBC 4.87 Hgb 13.6 Hct 44.8 MCV 92.0 MCH 27.9 L MCHC 30.4 RDW 17.2 H Plt Count 278 MPV 10.9 H Neut % (Auto) 74.8 Lymph % (Auto) 17.6 [place] % (Auto) 5.5 Eos % (Auto) 1.3 Baso % (Auto) 0.4 Neut # (Auto) 10.3 H Lymph # (Auto) 2.4 [place] # (Auto) 0.8 Eos # (Auto) 0.2 Baso # (Auto) 0.1 Nucleated RBC % (auto) 0 Nucleated RBCs # 0.0 PT 12.80 INR 0.94 APTT 26.2 Sodium Potassium Chloride Carbon Dioxide Anion Gap BUN Creatinine GFR Calculation Glucose Calculated Osmolality Calcium Total Bilirubin AST ALT Alkaline Phosphatase Total Protein Albumin Globulin Urine Color Yellow Urine Appearance Clear Urine pH 5 Ur Specific [place] 1.015 Urine Protein Neg Urine Glucose (UA) Norm Urine Ketones Negative Urine Blood Neg Urine Nitrate Negative Urine Bilirubin Neg Urine Urobilinogen 1 H Ur Leukocyte Esterase Negative Urine RBC None Urine WBC 0-4 H Ur Squamous Epith Cells 0-4 H Amorphous Sediment 1+ Urine Bacteria 1+ H Fine Granular Casts 0-4 H Urine Mucus 2+ Urine Opiates Screen Ur Barbiturates Screen Ur Phencyclidine Scrn Ur Amphetamines Screen U Benzodiazepines Scrn Urine Cocaine Screen U Marijuana (THC) Screen Ethyl Alcohol 06/16/19 06/16/19 12:25 12:26 WBC RBC Hgb Hct MCV MCH MCHC RDW Plt Count MPV Neut % (Auto) Lymph % (Auto) [place] % (Auto) Eos % (Auto) Baso % (Auto) Neut # (Auto) Lymph # (Auto) [place] # (Auto) Eos # (Auto) Baso # (Auto) Nucleated RBC % (auto) Nucleated RBCs # PT INR APTT Sodium 144 Potassium 4.1 Chloride 107 Carbon Dioxide 23 Anion Gap 18.1 BUN 14 Creatinine 0.8 GFR Calculation 73.2 L Glucose 121 H Calculated Osmolality 295 Calcium 8.6 Total Bilirubin 0.2 AST 44 H ALT 22 Alkaline Phosphatase 76 Total Protein 6.4 L Albumin 3.3 L Globulin 3.1 Urine Color Urine Appearance Urine pH Ur Specific [place] Urine Protein Urine Glucose (UA) Urine Ketones Urine Blood Urine Nitrate Urine Bilirubin Urine Urobilinogen Ur Leukocyte Esterase Urine RBC Urine WBC Ur Squamous Epith Cells Amorphous Sediment Urine Bacteria Fine Granular Casts Urine Mucus Urine Opiates Screen Negative Ur Barbiturates Screen Negative Ur Phencyclidine Scrn Negative Ur Amphetamines Screen Negative U Benzodiazepines Scrn Negative Urine Cocaine Screen Negative U Marijuana (THC) Screen Negative Ethyl Alcohol 206 H Cardiac Studies: No Data to Display
--- NOTE | 2019-06-16 14:54 | PM.OP ---
Operative Report Date of procedure: June 16, 2019 Pre-op Diagnosis: Grade 2 open right trimalleolar ankle fracture Post-op diagnosis: same Post-op Findings: Patient had a trimalleolar fracture of the right ankle. She had a 15 central long wound extending from the distal third of her tibia down over the fracture exiting posteriorly near the medial border of her Achilles tendon at the heel Procedure Done: Irrigation and debridement right ankle, external fixator placement right and Pathology: none sent Surgeon: Romeo Kelley Anesthesia: General Estimated blood loss (mL): 50 Findings: The patient had a 15 cm long laceration beginning from the distal third of the tibia extending inferiorly and posteriorly down the leg ending along the medial border of the Achilles tendon. The wound did communicate with the medial malleolar fracture. There was obvious contamination of the wound Condition: stable Disposition: PACU Brief History: The patient is a 59-year-old female who was found this morning in a pool of blood and stool after evening of drinking on the for with a open wound of her right leg and deformity of the ankle. She was taken to the operating room for aggressive irrigation debridement of the right ankle fracture and external fixator placement until her wound stabilized Procedure: The patient was taken to the operating room and after she was given a general anesthesia. Her right lower extremity was prepped and draped in the usual fashion. A timeout was performed. Initially the medial laceration was extended anteriorly and slightly distally to allow better access to the ankle joint. A total of 6 L of saline were irrigated about the joint and over the medial wound. Hematoma was removed and irregular torn skin edges were debrided back with a scalpel blade. No necrotic or grossly contaminated tissue was identified. The medial wound was then loosely closed with 0 Prolene suture. Next under fluoroscopy a transverse calcaneal pin was placed medial to lateral. 2 pins were placed in the anterior tibia going anterior to posterior proximal clamp was applied to the tibial pins and the 2 cross bars are run down to the calcaneal pin. Intraoperative imaging showed near anatomic alignment of the fracture. The incision and pin sites were covered with Xeroflo gauze and 4 x 4's and the leg covered with a loose Kerlix wrap and Dami wrap. The patient was extubated and taken to the recovery room in stable condition.
--- NOTE | 2019-06-16 15:44 | PC.RESP ---
PT. NOT AWAKE YET
[2019-06-16 16:19] LABS: Glucose Point of Care 120 mg/dL (70-110)
[2019-06-16 16:31] LABS: Hematocrit 40.5 % (37.0-47.0); Hemoglobin 11.7 g/dL (11.5-15.3)
[2019-06-16] MEDS: morphine 4 mg/mL SDV 1 mL IVP ×2 (17:31→19:14)
[2019-06-16] MEDS: metroNIDAZOLE IV 500 MG/100 ML PREMIX 100 MG IV (17:35)
[2019-06-16] MEDS: sodium chloride 0.9% 1,000 ML 80 ML IV (17:51)
--- NOTE | 2019-06-16 18:13 | PC.NURSE ---
called and informed of bleeding right leg site to reinforce and elevate pillow
[2019-06-16] MEDS: LORazepam 2 mg/mL INJ 1 mL IVP ×4 (18:29→22:49)
[2019-06-16] MEDS: ondansetron 2 mg/ML SDV 2 mL 4 MG IVP (18:29)
[2019-06-16] MEDS: tetanus-diphtheria tox (adult) 0.5 mL SDV IM (19:37)
--- NOTE | 2019-06-16 20:44 | PC.NURSE ---
Dressing marked upon doing physical assessment on patient, nurse noted that right lower extremity dressing has bloody drainage on the bottom of heel and inner portion of the lower leg. dressing was marked with pen. Nurse will continue to monitor dressing.
[2019-06-17] VITALS (18 sets, daily range): BP systolic 88–131; BP diastolic 52–75; PULSE 67–105; RESP 17–31; TEMP 36.8–38; O2SAT 94–100
[2019-06-17] MEDS: ceFAZolin 1,000 MG in sodium chloride 0.9% (plus) 50 ML 100 MG IV ×2 (03:35→12:18)
[2019-06-17] MEDS: sodium chloride 0.9% 1,000 ML 80 ML IV ×2 (03:36→15:56)
[2019-06-17 05:22] LABS: Basophils % 0.3 %; Eosinophils # 0.1 10^3/uL (0.0-0.8); Eosinophils % 0.7 %; Hematocrit 34.7 % (37.0-47.0); Hemoglobin 10.5 g/dL (11.5-15.3); Lymphocytes # 1.2 10^3/uL (0.8-4.8); Mean Corpuscular HGB Conc 30.3 g/dL (30.0-36.0); Mean Corpuscular Hemoglobin 28.3 pg (28.0-34.0); Mean Corpuscular Volume 93.5 fL (81-99); Mean Platelet Volume 11.2 fL (7.4-10.4); Monocytes # 1.2 10^3/uL (0.2-0.9); Monocytes % 10.8 %; Neutrophils # 8.7 10^3/uL (1.8-7.7); Neutrophils % 76.8 %; Nucleated Red Blood Cells % 0 %; Platelet Count 196 10^3/cmm (130-400); Red Blood Count 3.71 10^6/uL (4.1-5.3); Red Cell Distribution Width 17.2 % (12.1-15.1); White Blood Count 11.3 10^3/uL (4.0-10.0)
[2019-06-17] MEDS: LORazepam 2 mg/mL INJ 1 mL IVP ×2 (05:31→06:46)
[2019-06-17 05:39] LABS: Alanine Aminotransferase 18 U/L (0-33); Albumin Level 3.3 g/dL (3.5-5.2); Alkaline Phosphatase 70 IU/L (35-105); Anion Gap 14.1 (5-19); Aspartate Amino Transferase 39 U/L (0-32); Blood Urea Nitrogen 9 mg/dL (8-23); Carbon Dioxide 25 mmol/L (22-29); Chloride 110 mmol/L (98-107); Creatinine Clr Calc Pharmacy 150.0707; Globulin 2.9 g/dL (1.3-4.6); Glomerular Filtration Rate 125.9 mL/min (90-130); Glucose 123 mg/dL (65-115); Osmolality Calculated 297 mOsm/kg (285-295); Potassium 4.1 mmol/L (3.5-5.1); Sodium 145 mmol/L (136-145); Total Bilirubin 0.4 mg/dL (0.15-1.2); Total Protein 6.2 g/dL (6.6-8.7)
[2019-06-17] MEDS: budesonide 0.5 mg/2 mL Neb 1 MG INHALATION (08:25)
[2019-06-17] MEDS: carvedilol 25 mg Tablet PO ×2 (09:03→18:23)
[2019-06-17] MEDS: multivitamin therapeutic Tablet 1 TAB PO (09:05)
[2019-06-17] MEDS: folic acid 1 mg Tablet PO (09:05)
[2019-06-17] MEDS: pantoprazole DR 40 mg Tablet PO (09:05)
[2019-06-17] MEDS: duloxetine 60 mg Capsule PO ×2 (09:05→18:23)
[2019-06-17] MEDS: thiamine 100 mg Tablet PO (09:05)
[2019-06-17] MEDS: FUROsemide 20 mg Tablet PO (09:05)
[2019-06-17] MEDS: atorvastatin 40 mg Tablet 80 MG PO (09:05)
[2019-06-17] MEDS: morphine 4 mg/mL SDV 1 mL 2 MG IVP ×2 (09:06→14:14)
--- NOTE | 2019-06-17 09:36 | P.PN_ITS ---
Subjective Subjective: Interval history: Patient a bit more agitated last night. Awake this morning but a bit sedate Vitals/I&O/Wt Last Vital Signs Temp 100.4 F H 06/17/19 05:19 Pulse 99 06/17/19 08:29 Resp 29 H 06/17/19 09:06 BP 127/71 06/17/19 05:19 Pulse Ox 96 06/17/19 09:06 06/16/19 06/17/19 06/17/19 22:59 06:59 14:59 Intake Total 150 / 200 1002.683 / 1202.683 Output Total 625 / 625 550 / 1175 Balance -475 / -425 452.683 / 27.683 Weight last 48 hrs Weight 257 lb Physical Exam Narrative: EXAM NARRATIVE: Left lower extremity with bloody staining of dressing posteriorly. Palpable left dorsalis pedis pulse. Flexes extend toes left ankle Urinary Catheter Management^: Jacobo: Cath Placed During This Visit: yes Urethral Indwelling: Yes Reason for Continuing Indwelling Catheter: Accurate Measurement of Urinary Output in Critically Ill Patients Urinary Catheter Date of Insertion: 06/16/19 Urinary Catheter Time of Insertion: 12:24 Data : 06/17/19 04:50 06/17/19 04:50 A&P Assessment and plan (1) Open right trimalleolar fracture: The patient had an excellent reduction on her intraoperative radiographs. I certainly think this body is a significant time before we need to consider for need of stabilization. I suppose if medical risk continue she can be treated to union with an external fixator. I told the nursing that some bleeding is expected. We will discontinue dressings in the morning and begin pin care at that time. 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
[2019-06-17] MEDS: piperacillin-tazobactam 3.375 GM in sodium chloride 0.9% (plus) 50 ML IV ×2 (09:45→18:23)
--- NOTE | 2019-06-17 10:33 | P.PN_ITS ---
Subjective Subjective: Interval history: Still requiring one-on-one monitoring, off pressor support, spiked a temp of 100.4 F this morning. Morning labs noted including decreased leukocytosis, slight drop in hemoglobin from 11.7-10.5. Remains on CIWA protocol. Still n.p.o. but if more consistently awake may initiate diet. Precedex drip ordered but not started overnight. She is POD # 1 s/p debridement and irrigation, placement of external fixator. She is still quite somnolent though was arouseable enough to safely take oral meds this AM. Had 1025 mL urine output overnight. Will start on oral pain meds to decrease use of morphine particularly with continued lethargy. PT able to get her sitting up at the edge of the bed this afternoon. Less oozing from RLE, bulky dressing in place. Medications: Reviewed: Yes Medication Review Details: Active Medications Generic Name Dose Route Start Last Admin Trade Name Freq PRN Reason Stop Dose Admin Albuterol Sulfate 2.5 mg 06/17/19 00:37 06/17/19 08:25 Albuterol INHALATION 2.5 mg Q6H.RESPIRATORY S CH Administration Aspirin 81 mg 06/17/19 09:00 06/17/19 09:17 Aspirin Chewable PO Not Given DAILY DANYEL Atorvastatin Calci um 80 mg 06/17/19 09:00 06/17/19 09:05 Lipitor PO 80 mg DAILY DANYEL Administration Budesonide 1 mg 06/17/19 08:00 06/17/19 08:25 Pulmicort INHALATION 1 mg DAILY.RESPIRATORY DANYEL Administration Carvedilol 25 mg 06/16/19 18:00 06/17/19 09:03 Coreg PO 25 mg BID DANYEL Administration Celecoxib 200 mg 06/16/19 18:00 06/17/19 09:17 Celebrex PO Not Given BID DANYEL Clopidogrel Bisulf ate 75 mg 06/17/19 09:00 06/17/19 09:18 Plavix PO Not Given DAILY DANYEL Cyclobenzaprine HC l 10 mg 06/16/19 15:20 Flexeril PO TID PRN Muscle Spasm Folic Acid 1 mg 06/17/19 09:00 06/17/19 09:05 Folic Acid PO 1 mg DAILY DANYEL Administration Furosemide 20 mg 06/17/19 09:00 06/17/19 09:05 Lasix PO 20 mg DAILY DANYEL Administration Norepinephrine Bit artrate 4 mg 254 mls @ 0 mls/h r 06/16/19 13:00 06/17/19 03:42 / Dextrose IV 0 mcg/min .Q0M DANYEL 0 mls/hr Titration Protocol Per Protocol Cefazolin Sodium 1 ,000 mg/ 50 mls @ 100 mls/ hr 06/16/19 20:00 06/17/19 04:52 Sodium Chloride IV 06/17/19 12:29 Infused Q8H DANYEL Infusion Protocol Sodium Chloride 1,000 mls @ 80 ml s/hr 06/16/19 15:20 06/17/19 03:36 Sodium Chloride 0.9% IV 80 mls/hr .[id number] DANYEL Administration Dexmedetomidine HC l 400 mcg/ 104 mls @ 0 mls/h r 06/16/19 19:45 Sodium Chloride IV .Q0M DANYEL Protocol Per Protocol Piperacillin Sod/T azobactam 50 mls @ 12.5 mls /hr 06/17/19 09:30 06/17/19 09:45 Sod 3.375 gm/ So dium Chloride IV 12.5 mls/hr Q8H DANYEL Administration Protocol Lanolin 1 applic 06/16/19 18:32 Lanolin Oint TOPICAL PRN PRN DRYNESS Lorazepam 1 mg 06/16/19 18:00 06/16/19 19:18 Ativan PO Not Given QPM DANYEL Lorazepam 2 mg 06/16/19 15:20 Ativan IM Q4H PRN ALCOWD Protocol Lorazepam 2 mg 06/16/19 15:20 06/17/19 06:46 Ativan IVP 2 mg PRN PRN Administration WITHDRAWAL Protocol Lorazepam 2 mg 06/16/19 15:20 Ativan PO Q4H PRN WITHDRAWAL Protocol Meclizine HCl 25 mg 06/16/19 15:20 Antivert PO BID PRN nausea and vomiti ng Morphine Sulfate 2 mg 06/16/19 15:20 06/17/19 09:06 Morphine IVP 2 mg Q4H PRN Administration SEVERE PAIN Morphine Sulfate 4 mg 06/16/19 15:20 06/16/19 19:14 Morphine IVP 4 mg Q1H PRN Administration SEVERE PAIN Multivitamins Ther apeutic 1 tab 06/17/19 09:00 06/17/19 09:05 Multivitamin Tab PO 1 tab DAILY DANYEL Administration Ondansetron HCl 4 mg 06/16/19 15:20 06/16/19 18:29 Zofran IVP 4 mg Q6H PRN Administration NAUSEA AND VOMITI NG Pantoprazole Sodiu m 40 mg 06/17/19 09:00 06/17/19 09:05 Protonix PO 40 mg DAILY DANYEL Administration Thiamine Mononitra te 100 mg 06/17/19 09:00 06/17/19 09:05 Vitamin B-1 PO 100 mg DAILY DANYEL Administration Vitamin D 5,000 unit 06/17/19 09:00 06/17/19 09:18 Vitamin D3 PO Not Given DAILY DANYEL ciprofloxacin Adverse Reaction (Unknown, Verified 04/14/19 11:35) ADR-Swelling of the Eye doxycycline Adverse Reaction (Unknown, Verified 04/14/19 11:36) ADR-Vomiting Vitals/I&O/Wt Last Vital Signs Temp 100.4 F H 06/17/19 05:19 Pulse 99 06/17/19 08:29 Resp 29 H 06/17/19 09:06 BP 127/71 06/17/19 05:19 Pulse Ox 96 06/17/19 09:06 06/16/19 06/17/19 06/17/19 22:59 06:59 14:59 Intake Total 150 / 200 1002.683 / 1202.683 Output Total 625 / 625 550 / 1175 Balance -475 / -425 452.683 / 27.683 Weight last 48 hrs Weight 116.573 kg Physical Exam Const: COMMON NORMALS: no apparent distress GENERAL APPEARANCE: cooperati ve, comfortable and lethargic NUTRITIONAL APPEARANCE: obese morbidly obese ORIENTATION/CONSCIOUSNESS: Yes lethargic HENMT: COMMON NORMALS: normocephalic, head/scalp atraumatic and hearing grossly normal bilaterally HEAD & SCALP: normocephalic and atraumatic MOUTH: moist mucous membranes abnormal Details: parched Eye: COMMON NORMALS: PERRL, EOMs intact bilaterally and conjunctivae normal CONJUNCTIVA: Yes conjunctivae normal PUPIL: Yes PERRL Neck/C-Spine: COMMON NORMALS: full ROM GENERAL: Yes normal visual inspection and Yes trachea midline Chest: COMMONS NORMALS: inspection of chest normal Resp: COMMON NORMALS: normal respiratory effort, no retractions and no use of accessory muscles EFFORT & INSPECTION: Yes able to speak in complete sen tences, Yes symmetric chest movement and Yes tachypneic AUSCULTATION: diminished lung sounds Cardio: COMMON NORMALS: regular rate, regular rhythm, S1 normal heart sound, S 2 normal heart sound and no murmurs RATE: regular rate RHYTHM: regular rhythm HEART SOUNDS: S1 normal and S2 normal OTHER: -hypotensive GI: COMMON NORMALS: normal to inspection, nondistended, normoactive bowel sounds, soft to palpation and non-tender INSPECTION: Yes central obesity PALPATION: Yes soft : BLADDER/KIDNEY EXAM: Yes catheter in place Catheter type (Female): urethral Extremity: COMMON NORMALS: normal to inspection, full ROM and no clubbing, cyanosis or edema; negative for no pedal edema NARRATIVE EXTREMITY EXAM: -RLE: in bulky dressing, external fixators in place, less oozing from site Neuro: COMMON NORMALS: moves all extremities, no focal motor deficits and no sensory deficits noted SENSORIUM/ORIENTATION: Yes lethargic Psych: COMMON NORMALS: mental status grossly normal, thought process normal and cooperative SPEECH: Yes slow MOOD & AFFECT: Yes flat affect THOUGHT PROCESS: normal thought process Skin: COMMON NORMALS: no rashes or lesions noted, no jaundice, no petechiae and no mottling GENERAL SKIN EXAM: no rashes or lesions noted Urinary Catheter Management^: Jacobo: Cath Placed During This Visit: yes Urethral Indwelling: Yes Reason for Continuing Indwelling Catheter: Accurate Measurement of Urinary Output in Critically Ill Patients Urinary Catheter Date of Insertion: 06/16/19 Urinary Catheter Time of Insertion: 12:24 Data : 06/17/19 04:50 06/17/19 04:50 A&P Assessment and plan (1) Open right trimalleolar fracture: -secondary to fall while intoxicated -had open wound with contamination from fecal matter -Received a dose of tetanus post-op has not given in ER -fracture reduced in ED -Ortho consult by Dr. Kelley appreciated; POD # 1 s/p OR aggressive surgical debridement and irrigation, external fixator placement -got dose of Cefazolin; will give dose of Zosyn secondary to fecal contamination for anaerobic coverage -pain control as needed; received some sedation during reduction process -hypotension resolved and off pressor support, continue IV fluid hydration -Close monitoring of vital signs -Keep NPO due to somnolence -Jacobo catheter placed in ER; assess daily for removal -Noted leukocytosis with neutrophilic predominance now decreasing, continue to trend -Chemistry, UA negative -imaging noted, none done for cervical spine -PT/OT evaluations -fall precautions -add oral pain meds to allow for decreased use of morphine and hopefully less somnolence Status: Acute Qualifiers: Encounter type: initial encounter Open fracture type: open type I or II Qualified Code(s): S82.851B - Displaced trimalleolar fracture of right lower leg, initial encounter for open fracture type I or II (2) Hypotension: -Noted hypotension likely secondary to sedation, will continue IV fluid hydration, pressor support as needed to maintain MAP > 65; has been weaned off -BP stable this AM Status: Resolved Qualifiers: Hypotension type: other hypotension type Qualified Code(s): I95.89 - Other hypotension (3) Essential (primary) hypertension: -close monitoring of vital signs -pressor support as needed to maintain MAP > 65 -IVF hydration -hold oral antihypertensives Status: Chronic (4) Alcohol abuse: -Long history of documented chronic alcohol abuse; acutely intoxicated resulting in fall and subsequent right trimalleolar fracture -EtOH level-206 -Very high risk for alcohol withdrawal -CIWA protocol, thiamine/MVI/folate daily when PO appropriate -fall/seizure/aspiration precautions -1:1 monitoring Status: Chronic (5) CAD (coronary artery disease): -has known hx of CAD with prior stenting -in light of bleeding associated with fracture, will continue to hold ASA, plavix for now Status: Chronic Qualifiers: Associated angina: angina presence unspecified Coronary Disease-Ass ociated Artery/Lesion type: [place] artery [place] vs. transplanted heart: [place] heart Qualified Code(s): I25.10 - Atherosclerotic heart disease of [place] coronary artery without angina pectoris (6) Morbid obesity: -BMI-44 kg/m2 Status: Chronic (7) Chronic obstructive pulmonary disease, unspecified: -no acute exacerbation -supplemental oxygen as needed -continue to monitor respiratory status Status: Chronic Qualifiers: COPD type: unspecified COPD Qualified Code(s): J44.9 - Chronic obstructive pulmonary disease, unspecified (8) Anxiety and depression: -hold scheduled Ativan and hydroxyzine due to hypotension Status: Chronic (9) Osteoarthritis, chronic: Status: Chronic Additional A&P Information -Hyperlipidemia; on statin -Chronic smoker -GERD with recent EGD showing esophagitis and colonoscopy with polypectomy (adenomatous polyp) -GI ppx with PPI -DVT ppx with Lovenox post-op, with caution given bleeding initially -Dispo: may need SNF placement -Code status: FULL code -Due to acute alcohol intoxication, risk of severe alcohol withdrawal, continue ICU care Attestations Medical Necessity Statement*: Patient requires hospitalization for continued post-op management following surgery for right trimalleolar fracture as well as acute alcohol intoxication with continued risk of withdrawal. Time Spent in Patient Care: 16 - 35 minutes (>than 50% of time spent in counselling and/or direct pt care on unit) . Coding Level of Care Code Acute Division [facility] for [facility] Fwd Exam Comprehensive Diagnoses Open right trimalleolar fracture S82.851B Encounter type: initial encounter Open fracture type: open type I or II Hypotension I95.89 Hypotension type: other hypotension type Essential (primary) hypertension I10 Alcohol abuse F10.10 CAD (coronary artery disease) I25.10 Associated angina: angina presence unspecified Coronary Disease-Associated Artery/Lesion type: [place] artery [place] vs. transplanted heart: [place] heart Morbid obesity E66.01 Chronic obstructive pulmonary disease, unspecified J44.9 COPD type: unspecified COPD Anxiety and depression F41.9; F32.9 Osteoarthritis, chronic M19.90
[2019-06-17] MEDS: enoxaparin 40 mg/0.4 mL Syringe SUBCUT (12:16)
[2019-06-17] MEDS: cyclobenzaprine 10 mg Tablet PO (14:14)
[2019-06-17] MEDS: oxyCODONE-APAP 5-325 mg Tablet 1 TAB PO ×2 (15:26→19:38)
[2019-06-17] MEDS: LORazepam 1 mg Tablet PO (18:23)
[2019-06-17] MEDS: CELEcoxib 200 mg Capsule PO (19:38)
[2019-06-18] VITALS (20 sets, daily range): BP systolic 88–112; BP diastolic 52–75; PULSE 62–85; RESP 13–20; TEMP 36.5–37.1; O2SAT 92–98
[2019-06-18] MEDS: piperacillin-tazobactam 3.375 GM in sodium chloride 0.9% (plus) 50 ML IV (02:23)
[2019-06-18] MEDS: oxyCODONE-APAP 5-325 mg Tablet 1 TAB PO ×3 (02:29→13:18)
[2019-06-18 04:56] LABS: Basophils % 0.3 %; Eosinophils # 0.2 10^3/uL (0.0-0.8); Eosinophils % 2.7 %; Hematocrit 30.1 % (37.0-47.0); Hemoglobin 8.9 g/dL (11.5-15.3); Lymphocytes # 1.7 10^3/uL (0.8-4.8); Lymphocytes % 18.5 %; Mean Corpuscular HGB Conc 29.6 g/dL (30.0-36.0); Mean Corpuscular Hemoglobin 27.5 pg (28.0-34.0); Mean Corpuscular Volume 92.9 fL (81-99); Mean Platelet Volume 10.8 fL (7.4-10.4); Monocytes # 0.8 10^3/uL (0.2-0.9); Monocytes % 8.6 %; Neutrophils # 6.3 10^3/uL (1.8-7.7); Neutrophils % 69.8 %; Nucleated Red Blood Cells % 0 %; Platelet Count 149 10^3/cmm (130-400); Red Blood Count 3.24 10^6/uL (4.1-5.3); Red Cell Distribution Width 16.8 % (12.1-15.1)
[2019-06-18] MEDS: sodium chloride 0.9% 1,000 ML 80 ML IV ×2 (04:57→19:05)
[2019-06-18 05:10] LABS: Anion Gap 12.6 (5-19); Blood Urea Nitrogen 9 mg/dL (8-23); Calcium 8.3 mg/dL (8.5-10.5); Carbon Dioxide 27 mmol/L (22-29); Chloride 103 mmol/L (98-107); Creatinine Clr Calc Pharmacy 150.0707; Glomerular Filtration Rate 125.9 mL/min (90-130); Glucose 104 mg/dL (65-115); Osmolality Calculated 284 mOsm/kg (285-295); Potassium 3.6 mmol/L (3.5-5.1); Sodium 139 mmol/L (136-145)
[2019-06-18] MEDS: ondansetron 2 mg/ML SDV 2 mL 4 MG IVP ×3 (06:18→23:47)
[2019-06-18] MEDS: cyclobenzaprine 10 mg Tablet PO ×2 (07:47→14:48)
--- NOTE | 2019-06-18 08:29 | P.PN_ITS ---
Subjective Subjective: Interval history: BP stable, had 300 mL urine output overnight, much better output during the day, has been afebrile x 24 hrs. AM labs noted, continued drop in Hg, resolved leukocytosis. She is POD # 2s/p debridement and external fixator placement. Continues to require 1:1 monitoring. Sitting in recliner, still fairly disoriented though more awake this AM. Dressing changed by Dr. Kelley. Medications: Reviewed: Yes Medication Review Details: Active Medications Generic Name Dose Route Start Last Admin Trade Name Freq PRN Reason Stop Dose Admin Acetaminophen 650 mg 06/17/19 14:18 Tylenol PO Q6H PRN Mild pain or feve r Albuterol Sulfate 2.5 mg 06/17/19 00:37 06/18/19 03:14 Albuterol INHALATION 2.5 mg Q6H.RESPIRATORY S CH Administration Aspirin 81 mg 06/17/19 09:00 06/17/19 09:17 Aspirin Chewable PO Not Given DAILY DANYEL Atorvastatin Calci um 80 mg 06/17/19 09:00 06/17/19 09:05 Lipitor PO 80 mg DAILY DANYEL Administration Budesonide 1 mg 06/17/19 08:00 06/17/19 08:25 Pulmicort INHALATION 1 mg DAILY.RESPIRATORY DANYEL Administration Carvedilol 25 mg 06/16/19 18:00 06/17/19 18:23 Coreg PO 25 mg BID DANYEL Administration Celecoxib 200 mg 06/16/19 18:00 06/17/19 19:38 Celebrex PO 200 mg BID DANYEL Administration Clopidogrel Bisulf ate 75 mg 06/17/19 09:00 06/17/19 09:18 Plavix PO Not Given DAILY DANYEL Cyclobenzaprine HC l 10 mg 06/16/19 15:20 06/18/19 07:47 Flexeril PO 10 mg TID PRN Administration Muscle Spasm Enoxaparin Sodium 40 mg 06/17/19 12:00 06/17/19 12:16 Lovenox SUBCUT 40 mg Q24H DANYEL Administration Folic Acid 1 mg 06/17/19 09:00 06/17/19 09:05 Folic Acid PO 1 mg DAILY DANYEL Administration Furosemide 20 mg 06/17/19 09:00 06/17/19 09:05 Lasix PO 20 mg DAILY DANYEL Administration Norepinephrine Bit artrate 4 mg 254 mls @ 0 mls/h r 06/16/19 13:00 06/17/19 03:42 / Dextrose IV 0 mcg/min .Q0M DANYEL 0 mls/hr Titration Protocol Per Protocol Sodium Chloride 1,000 mls @ 80 ml s/hr 06/16/19 15:20 06/18/19 04:57 Sodium Chloride 0.9% IV 80 mls/hr .[id number] DANYEL Administration Dexmedetomidine HC l 400 mcg/ 104 mls @ 0 mls/h r 06/16/19 19:45 Sodium Chloride IV .Q0M DANYEL Protocol Per Protocol Piperacillin Sod/T azobactam 50 mls @ 12.5 mls /hr 06/17/19 09:30 06/18/19 06:23 Sod 3.375 gm/ So dium Chloride IV Infused Q8H DANYEL Infusion Protocol Lanolin 1 applic 06/16/19 18:32 Lanolin Oint TOPICAL PRN PRN DRYNESS Lorazepam 1 mg 06/16/19 18:00 06/17/19 18:23 Ativan PO 1 mg QPM DANYEL Administration Lorazepam 2 mg 06/16/19 15:20 Ativan IM Q4H PRN ALCOWD Protocol Lorazepam 2 mg 06/16/19 15:20 06/17/19 06:46 Ativan IVP 2 mg PRN PRN Administration WITHDRAWAL Protocol Lorazepam 2 mg 06/16/19 15:20 Ativan PO Q4H PRN WITHDRAWAL Protocol Meclizine HCl 25 mg 06/16/19 15:20 Antivert PO BID PRN nausea and vomiti ng Morphine Sulfate 2 mg 06/16/19 15:20 06/17/19 14:14 Morphine IVP 2 mg Q4H PRN Administration SEVERE PAIN Morphine Sulfate 4 mg 06/16/19 15:20 06/16/19 19:14 Morphine IVP 4 mg Q1H PRN Administration SEVERE PAIN Multivitamins Ther apeutic 1 tab 06/17/19 09:00 06/17/19 09:05 Multivitamin Tab PO 1 tab DAILY DANYEL Administration Ondansetron HCl 4 mg 06/16/19 15:20 06/18/19 06:18 Zofran IVP 4 mg Q6H PRN Administration NAUSEA AND VOMITI NG Oxycodone/Acetamin ophen 1 tab 06/17/19 14:18 06/18/19 07:47 Percocet 5-325 M g PO 1 tab Q4H PRN Administration MODERATE PAIN Pantoprazole Sodiu m 40 mg 06/17/19 09:00 06/17/19 09:05 Protonix PO 40 mg DAILY DANYEL Administration Pharmacy Consult 1 each 06/18/19 08:26 Pharmacy Consult For Fall Risk XX 06/18/19 08:27 ONCE ONE Protocol Thiamine Mononitra te 100 mg 06/17/19 09:00 06/17/19 09:05 Vitamin B-1 PO 100 mg DAILY DANYEL Administration Tramadol HCl 50 mg 06/17/19 14:18 Ultram PO Q4H PRN BREAKTHROUGH PAIN Vitamin D 5,000 unit 06/17/19 09:00 06/17/19 09:18 Vitamin D3 PO Not Given DAILY DANYEL ciprofloxacin Adverse Reaction (Unknown, Verified 04/14/19 11:35) ADR-Swelling of the Eye doxycycline Adverse Reaction (Unknown, Verified 04/14/19 11:36) ADR-Vomiting Vitals/I&O/Wt Last Vital Signs Temp 98.7 F 06/18/19 06:22 Pulse 73 06/18/19 06:22 Resp 18 06/18/19 07:47 BP 109/75 06/18/19 06:22 Pulse Ox 94 06/18/19 07:47 06/17/19 06/18/19 06/18/19 22:59 06:59 14:59 Intake Total 1086.667 / 4230.455 9022 / 2786.667 Output Total 125 / 2125 175 / 2300 Balance 961.667 / -488.333 975 / 486.667 Weight last 48 hrs Weight 116.573 kg Physical Exam Const: COMMON NORMALS: no apparent distress GENERAL APPEARANCE: cooperative, comfortable and lethargic NUTRITIONAL APPEARANCE: obese morbidly obese ORIENTATION/CONSCIOUSNESS: Yes lethargic OTHER: -sitting in recliner HENMT: COMMON NORMALS: normocephalic, head/scalp atraumatic and hearing grossly normal bilaterally HEAD & SCALP: normocephalic and atraumatic MOUTH: moist mucous membranes abnormal Details: parched Eye: COMMON NORMALS: PERRL, EOMs intact bilaterally and conjunctivae normal CONJUNCTIVA: Yes conjunctivae normal PUPIL: Yes PERRL Neck/C-Spine: COMMON NORMALS: full ROM GENERAL: Yes normal visual inspection and Yes trachea midline Chest: COMMONS NORMALS: inspection of chest normal Resp: COMMON NORMALS: normal respiratory effort, no retractions and no use of accessory muscles EFFORT & INSPECTION: Yes able to speak in complete sen tences and Yes symmetric chest movement AUSCULTATION: diminished lung sounds Cardio: COMMON NORMALS: regular rate, regular rhythm, S1 normal heart sound, S2 normal heart sound and no murmurs RATE: regular rate RHYTHM: regular rhythm HEART SOUNDS: S1 normal and S2 normal GI: COMMON NORMALS: normal to inspection, nondistended, normoactive bowel sounds, soft to palpation and non-tender INSPECTION: Yes central obesity PALPATION: Yes soft : BLADDER/KIDNEY EXAM: Yes catheter in place Catheter type (Female): urethral Extremity: COMMON NORMALS: normal to inspection, full ROM and no clubbing, cyanosis or edema; negative for no pedal edema NARRATIVE EXTREMITY EXAM: -RLE: in bulky dressing, external fixators in place, less oozing from site. Wound on medial ankle sutured, well approximated, some duskiness to edges, slight oozing noted. Neuro: COMMON NORMALS: moves all extremities, no focal motor deficits and no sensory deficits noted SENSORIUM/ORIENTATION: Yes lethargic GAIT: Yes other (NWB RLE) Psych: COMMON NORMALS: mental status grossly normal and cooperative SPEECH: Yes slow MOOD & AFFECT: Yes flat affect THOUGHT PROCESS: confused Skin: COMMON NORMALS: no rashes or lesions noted, no jaundice, no petechiae and no mottling GENERAL SKIN EXAM: no rashes or lesions noted Urinary Catheter Management^: Jacobo: Cath Placed During This Visit: yes Urethral Indwelling: Yes Reason for Continuing Indwelling Catheter: Accurate Measurement of Urinary Output in Critically Ill Patients Urinary Catheter Date of Insertion: 06/16/19 Urinary Catheter Time of Insertion: 12:24 Data : 06/18/19 04:39 06/18/19 04:39 A&P Assessment and plan (1) Open right trimalleolar fracture: -secondary to fall while intoxicated -had open wound with contamination from fecal matter -Received a dose of tetanus post-op as not given in ER -fracture reduced in ED -Ortho consult by Dr. Kelley appreciated; POD # 2 s/p OR aggressive surgical debridement and irrigation, external fixator placement -covered with Cefazolin ang-operatively; also got several doses of Zosyn secondary to fecal contamination for anaerobic coverage -pain control as needed -hypotension resolved and off pressor support, continue IV fluid hydration pending improved oral intake -VSS; continue to monitor vital signs -on CLD, advance as mental status improves -Jacobo catheter placed in ER; assess daily for removal -Noted leukocytosis with neutrophilic predominance now resolved -Chemistry, UA negative -imaging noted, none done for cervical spine -PT/OT evaluations -fall precautions -added oral pain meds to allow for decreased use of morphine and hopefully less somnolence -post-op anemia noted, Hg down to 8.9 today (drop from 13.6 on admission); if continued drop and/or hemodynamic instability, may need transfusion of blood products. EBL-100 mL. Status: Acute Qualifiers: Encounter type: initial encounter Open fracture type: open type I or II Qualified Code(s): S82.851B - Displaced trimalleolar fracture of right lower leg, initial encounter for open fracture type I or II (2) Hypotension: -BP stable -on IVF hydration; off pressor support Status: Resolved Qualifiers: Hypotension type: other hypotension type Qualified Code(s): I95.89 - Other hypotension (3) Essential (primary) hypertension: -close monitoring of vital signs -pressor support as needed to maintain MAP > 65 -IVF hydration -hold oral antihypertensives Status: Chronic (4) Alcohol abuse: -Long history of documented chronic alcohol abuse; acutely intoxicated resulting in fall and subsequent right trimalleolar fracture -EtOH level-206 -Very high risk for alcohol withdrawal -CIWA protocol, thiamine/MVI/folate daily when PO appropriate -fall/seizure/aspiration precautions -1:1 monitoring Status: Chronic (5) CAD (coronary artery disease): -has known hx of CAD with prior stenting -in light of bleeding associated with fracture, will continue to hold ASA, plavix for now Status: Chronic Qualifiers: Associated angina: angina presence unspecified Coronary Disease- Associated Artery/Lesion type: [place] artery [place] vs. transplanted heart: [place] heart Qualified Code(s): I25.10 - Atherosclerotic heart disease of [place] coronary artery without angina pectoris (6) Morbid obesity: -BMI-44 kg/m2 Status: Chronic (7) Chronic obstructive pulmonary disease, unspecified: -no acute exacerbation -supplemental oxygen as needed -continue to monitor respiratory status Status: Chronic Qualifiers: COPD type: unspecified COPD Qualified Code(s): J44.9 - Chronic obstructive pulmonary disease, unspecified (8) Anxiety and depression: -hold scheduled Ativan and hydroxyzine due to hypotension Status: Chronic (9) Osteoarthritis, chronic: Status: Chronic Additional A&P Information -Hyperlipidemia; on statin -Chronic smoker -GERD with recent EGD showing esophagitis and colonoscopy with polypectomy (adenomatous polyp) -GI ppx with PPI -DVT ppx with Lovenox post-op, with caution given bleeding initially -Dispo: may need SNF placement -Code status: FULL code -Due to acute alcohol intoxication, risk of severe alcohol withdrawal, continue ICU care Attestations Medical Necessity Statement*: Patient requires hospitalization for continued post-op care including pain management, monitoring of hemodynamic status and hemoglobin; as well as management of alcohol withdrawal. Time Spent in Patient Care: 16 - 35 minutes (>than 50% of time spent in counselling and/or direct pt care on unit) . Coding Level of Care Code Acute [facility] for [facility] Fwd Exam Comprehensive Diagnoses Open right trimalleolar fracture S82.851B Encounter type: initial encounter Open fracture type: open type I or II Hypotension I95.89 Hypotension type: other hypotension type Essential (primary) hypertension I10 Alcohol abuse F10.10 CAD (coronary artery disease) I25.10 Associated angina: angina presence unspecified Coronary Disease-Associated Artery/Lesion type: [place] artery [place] vs. transplanted heart: [place] heart Morbid obesity E66.01 Chronic obstructive pulmonary disease, unspecified J44.9 COPD type: unspecified COPD Anxiety and depression F41.9; F32.9 Osteoarthritis, chronic M19.90
[2019-06-18] MEDS: budesonide 0.5 mg/2 mL Neb 1 MG INHALATION (09:06)
--- NOTE | 2019-06-18 09:31 | PM.PN ---
Subjective Subjective: Interval history: Patient communicative. drowsy Vitals/I&O/Wt Last Vital Signs Temp 98.7 F 06/18/19 06:22 Pulse 85 06/18/19 09:13 Resp 16 06/18/19 09:11 BP 109/75 06/18/19 06:22 Pulse Ox 93 06/18/19 09:11 06/17/19 06/18/19 06/18/19 22:59 06:59 14:59 Intake Total 1086.667 / 6905.274 4086 / 2786.667 Output Total 125 / 2125 175 / 2300 Balance 961.667 / -488.333 975 / 486.667 Weight last 48 hrs Weight 257 lb Physical Exam Narrative: EXAM NARRATIVE: Right ankle wound clean. Slight duskiness anterior inferior skin edges. Pin sites clean Urinary Catheter Management^: Jacobo: Cath Placed During This Visit: yes Urethral Indwelling: Yes Reason for Continuing Indwelling Catheter: Accurate Measurement of Urinary Output in Critically Ill Patients Urinary Catheter Date of Insertion: 06/16/19 Urinary Catheter Time of Insertion: 12:24 Data : 06/18/19 04:39 06/18/19 04:39 A&P Assessment and plan (1) Open right trimalleolar fracture: Alignment is excellent in her fixator. I do not see any needs for short-term intervention. Once medically stable and wound margins look good we could consider removal of fixator and open reduction internal fixation of fractures. Medical management for now. 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
[2019-06-18] MEDS: FUROsemide 20 mg Tablet PO (09:32)
[2019-06-18] MEDS: folic acid 1 mg Tablet PO (09:32)
[2019-06-18] MEDS: duloxetine 60 mg Capsule PO ×2 (09:32→17:36)
[2019-06-18] MEDS: multivitamin therapeutic Tablet 1 TAB PO (09:32)
[2019-06-18] MEDS: carvedilol 25 mg Tablet PO ×2 (09:32→17:36)
[2019-06-18] MEDS: atorvastatin 40 mg Tablet 80 MG PO (09:32)
[2019-06-18] MEDS: pantoprazole DR 40 mg Tablet PO (09:33)
[2019-06-18] MEDS: thiamine 100 mg Tablet PO (09:33)
[2019-06-18] MEDS: aspirin 81 mg Chew Tablet PO (09:33)
[2019-06-18] MEDS: clopidogrel 75 mg Tablet PO (09:34)
[2019-06-18] MEDS: CELEcoxib 200 mg Capsule PO ×2 (09:37→17:36)
[2019-06-18] MEDS: cholecalciferol (vitamin D3) 5,000 unit Tablet 5000 UNIT PO (09:38)
[2019-06-18] MEDS: TRAMadol 50 mg Tablet PO ×2 (10:33→17:35)
--- NOTE | 2019-06-18 11:08 | PC.NURSE ---
06/18/2019 10:30-PT COMPLETED HER INCENTIVE SPIROMETER 10 TIMES PULLING [phone]; WILL CONTINUE TO MONITOR.
[2019-06-18] MEDS: enoxaparin 40 mg/0.4 mL Syringe SUBCUT (11:58)
--- NOTE | 2019-06-18 13:50 | PC.NURSE ---
06/18/19 12:30 - PT COMPLETED HER INCENTIVE SPIROMETER WITH VALUE OF [phone]; WILL CONTINUE TO MONITOR
[2019-06-18] MEDS: nicotine 14 mg Patch 1 PATCH TRANSDERMA (14:17)
--- NOTE | 2019-06-18 15:34 | PC.NURSE ---
06/18/19 1430 - PT COMPLETED INCENTIVE SPIROMETER, PULLED VALUES BETWEEN [phone]; WILL CONTINUE TO MONITOR
[2019-06-18] MEDS: LORazepam 1 mg Tablet PO (17:36)
--- NOTE | 2019-06-18 18:10 | PC.NURSE ---
END OF SHIFT NOTE: PT TOLERATED BEING UP TO CHAIR FOR 7 HOURS TODAY; PT IS STILL IMPULSIVE AT TIMES WANTING TO GET UP EITHER OUT OF THE CHAIR OR OUT OF THE BED; WHILE PT IS ORIENTED, STILL FORGETFUL; PT DOES NOT REMEMBER WHAT HAPPENED, HOW SHE GOT HERE, OR THE EXTENT OF HER INJURIES; PT REQUIRES GENTLE REORIENTATION WHEN SUDDENLY WAKING UP AND FIRM REDIRECTION WHEN IMPULSIVE; PT HAD COMPLETE LINEN CHANGE, BATH WHILE IN CHAIR ALONG WITH SHAMPOOING HER HAIR IT SMELLED OF VOMIT; PT DID PULL OUT HER 20G LAC IV WHEN TRYING TO BRUSH HER HAIR; THIS RN PLACED A NEW 22G IN HER RIGHT THUMB THAT NS INFUSING AT 80 ML/HR; PT'S PAIN IS MANAGED ALTERNATING BETWEEN OXYCODOONE 5/235 AND TRAMADOL 50MG; PT DOES HAVE COMPLIANTS OF MUSCLE SPASMS FOR WHICH SHE HAS RECEIVED FLEXRIL FOR; PT WOULD BENEFIT FROM A STOOL SOFTENER DUE TO HER PAIN MEDS; PT UTILIZES HOME O2 PRN; PT MAY REQUIRE O2 WHILE SLEEPING; WILL CONTINUE TO MONITOR
[2019-06-18] MEDS: morphine 4 mg/mL SDV 1 mL 2 MG IVP (21:48)
[2019-06-18] MEDS: LORazepam 2 mg/mL INJ 1 mL IVP ×2 (21:56→23:47)
[2019-06-18] MEDS: morphine 4 mg/mL SDV 1 mL IVP (23:48)
[2019-06-19] VITALS (83 sets, daily range): BP systolic 76–128; BP diastolic 43–81; PULSE 64–105; RESP 14–29; TEMP 36.1–37; O2SAT 79–100
[2019-06-19] MEDS: morphine 4 mg/mL SDV 1 mL 2 MG IVP (03:35)
[2019-06-19] MEDS: LORazepam 2 mg/mL INJ 1 mL IVP (03:37)
[2019-06-19 04:58] LABS: Basophils % 0.4 %; Eosinophils # 0.3 10^3/uL (0.0-0.8); Eosinophils % 3.1 %; Hematocrit 27.7 % (37.0-47.0); Hemoglobin 8.2 g/dL (11.5-15.3); Lymphocytes # 1.8 10^3/uL (0.8-4.8); Lymphocytes % 21.8 %; Mean Corpuscular HGB Conc 29.6 g/dL (30.0-36.0); Mean Corpuscular Hemoglobin 27.6 pg (28.0-34.0); Mean Corpuscular Volume 93.3 fL (81-99); Mean Platelet Volume 11.6 fL (7.4-10.4); Monocytes # 0.8 10^3/uL (0.2-0.9); Monocytes % 9.1 %; Neutrophils # 5.4 10^3/uL (1.8-7.7); Neutrophils % 65.4 %; Nucleated Red Blood Cells % 0 %; Platelet Count 149 10^3/cmm (130-400); Red Blood Count 2.97 10^6/uL (4.1-5.3); Red Cell Distribution Width 16.5 % (12.1-15.1); White Blood Count 8.3 10^3/uL (4.0-10.0)
[2019-06-19] MEDS: morphine 4 mg/mL SDV 1 mL IVP (05:50)
[2019-06-19] MEDS: budesonide 0.5 mg/2 mL Neb 1 MG INHALATION (08:14)
[2019-06-19] MEDS: nicotine 14 mg Patch 1 PATCH TRANSDERMA (08:57)
[2019-06-19] MEDS: cholecalciferol (vitamin D3) 5,000 unit Tablet 5000 UNIT PO (08:58)
[2019-06-19] MEDS: atorvastatin 40 mg Tablet 80 MG PO (08:59)
[2019-06-19] MEDS: FUROsemide 20 mg Tablet PO (08:59)
[2019-06-19] MEDS: pantoprazole DR 40 mg Tablet PO (08:59)
[2019-06-19] MEDS: multivitamin therapeutic Tablet 1 TAB PO (08:59)
[2019-06-19] MEDS: aspirin 81 mg Chew Tablet PO (08:59)
[2019-06-19] MEDS: folic acid 1 mg Tablet PO (08:59)
[2019-06-19] MEDS: duloxetine 60 mg Capsule PO ×2 (08:59→17:46)
[2019-06-19] MEDS: carvedilol 25 mg Tablet PO (08:59)
[2019-06-19] MEDS: thiamine 100 mg Tablet PO (08:59)
[2019-06-19] MEDS: CELEcoxib 200 mg Capsule PO ×2 (08:59→17:46)
[2019-06-19] MEDS: clopidogrel 75 mg Tablet PO (08:59)
[2019-06-19] MEDS: sodium chloride 0.9% 1,000 ML 80 ML IV (09:02)
--- NOTE | 2019-06-19 09:10 | PM.PN ---
Subjective Subjective: Interval history: Noted continued drop in Hg, will transfuse particularly due to noted continued oozing from RLE and low BP. Had 400 mL urine output overnight. Received a total of 6 mg IV Ativan overnight. She is POD # 3 s/p irrigation and debridement, external fixator placement on R. Sitter at bedside, she is quite somnolent. Desaturates when she is sleeping so replaced NC. Medications: Reviewed: Yes Medication Review Details: Active Medications Generic Name Dose Route Start Last Admin Trade Name Freq PRN Reason Stop Dose Admin Acetaminophen 650 mg 06/17/19 14:18 Tylenol PO Q6H PRN Mild pain or feve r Albuterol Sulfate 2.5 mg 06/17/19 00:37 06/19/19 08:15 Albuterol INHALATION 2.5 mg Q6H.RESPIRATORY S CH Administration Aspirin 81 mg 06/17/19 09:00 06/19/19 08:59 Aspirin Chewable PO 81 mg DAILY DANYEL Administration Atorvastatin Calci um 80 mg 06/17/19 09:00 06/19/19 08:59 Lipitor PO 80 mg DAILY DANYEL Administration Budesonide 1 mg 06/17/19 08:00 06/19/19 08:14 Pulmicort INHALATION 1 mg DAILY.RESPIRATORY DANYEL Administration Carvedilol 25 mg 06/16/19 18:00 06/19/19 08:59 Coreg PO 25 mg BID DANYEL Administration Celecoxib 200 mg 06/16/19 18:00 06/19/19 08:59 Celebrex PO 200 mg BID DANYEL Administration Clopidogrel Bisulf ate 75 mg 06/17/19 09:00 06/19/19 08:59 Plavix PO 75 mg DAILY DANYEL Administration Cyclobenzaprine HC l 10 mg 06/16/19 15:20 06/18/19 14:48 Flexeril PO 10 mg TID PRN Administration Muscle Spasm Enoxaparin Sodium 40 mg 06/17/19 12:00 06/18/19 11:58 Lovenox SUBCUT 40 mg Q24H DANYEL Administration Folic Acid 1 mg 06/17/19 09:00 06/19/19 08:59 Folic Acid PO 1 mg DAILY DANYEL Administration Furosemide 20 mg 06/17/19 09:00 06/19/19 08:59 Lasix PO 20 mg DAILY DANYEL Administration Norepinephrine Bit artrate 4 mg 254 mls @ 0 mls/h r 06/16/19 13:00 06/17/19 03:42 / Dextrose IV 0 mcg/min .Q0M DANYEL 0 mls/hr Titration Protocol Per Protocol Sodium Chloride 1,000 mls @ 80 ml s/hr 06/16/19 15:20 06/19/19 09:02 Sodium Chloride 0.9% IV 80 mls/hr .[id number] DANYEL Administration Dexmedetomidine HC l 400 mcg/ 104 mls @ 0 mls/h r 06/16/19 19:45 Sodium Chloride IV .Q0M DANYEL Protocol Per Protocol Lanolin 1 applic 06/16/19 18:32 Lanolin Oint TOPICAL PRN PRN DRYNESS Lorazepam 1 mg 06/16/19 18:00 06/18/19 17:36 Ativan PO 1 mg QPM DANYEL Administration Lorazepam 2 mg 06/16/19 15:20 Ativan IM Q4H PRN ALCOWD Protocol Lorazepam 2 mg 06/16/19 15:20 06/19/19 03:37 Ativan IVP 2 mg PRN PRN Administration WITHDRAWAL Protocol Lorazepam 2 mg 06/16/19 15:20 Ativan PO Q4H PRN WITHDRAWAL Protocol Meclizine HCl 25 mg 06/16/19 15:20 Antivert PO BID PRN nausea and vomiti ng Morphine Sulfate 2 mg 06/16/19 15:20 06/19/19 03:35 Morphine IVP 2 mg Q4H PRN Administration SEVERE PAIN Multivitamins Ther apeutic 1 tab 06/17/19 09:00 06/19/19 08:59 Multivitamin Tab PO 1 tab DAILY DANYEL Administration Nicotine 1 patch 06/18/19 14:15 06/19/19 08:57 Nicoderm 14 Mg P atch TRANSDERMA 1 patch DAILY DANYEL Administration Ondansetron HCl 4 mg 06/16/19 15:20 06/18/19 23:47 Zofran IVP 4 mg Q6H PRN Administration NAUSEA AND VOMITI NG Oxycodone/Acetamin ophen 1 tab 06/17/19 14:18 06/18/19 13:18 Percocet 5-325 M g PO 1 tab Q4H PRN Administration MODERATE PAIN Pantoprazole Sodiu m 40 mg 06/17/19 09:00 06/19/19 08:59 Protonix PO 40 mg DAILY DANYEL Administration Thiamine Mononitra te 100 mg 04/18/20 09:00 06/19/19 08:59 Vitamin B-1 PO 100 mg DAILY DANYEL Administration Tramadol HCl 50 mg 06/17/19 14:18 06/18/19 17:35 Ultram PO 50 mg Q4H PRN Administration BREAKTHROUGH PAIN Vitamin D 5,000 unit 06/17/19 09:00 06/19/19 08:58 Vitamin D3 PO 5,000 unit DAILY DANYEL Administration ciprofloxacin Adverse Reaction (Unknown, Verified 04/14/19 11:35) ADR-Swelling of the Eye doxycycline Adverse Reaction (Unknown, Verified 04/14/19 11:36) ADR-Vomiting Vitals/I&O/Wt Last Vital Signs Temp 96.9 F L 06/19/19 07:00 Pulse 91 06/19/19 08:30 Resp 19 H 06/19/19 08:30 BP 122/81 06/19/19 08:30 Pulse Ox 91 06/19/19 08:30 06/18/19 06/19/19 06/19/19 22:59 06:59 14:59 Intake Total 2722 / 2782 222 / 3004 300 / 300 Output Total 50 / 500 400 / 900 Balance 2672 / 2282 -178 / 2104 300 / 300 Physical Exam Const: COMMON NORMALS: no apparent distress GENERAL APPEARANCE: cooperative, comfortable and lethargic NUTRITIONAL APPEARANCE: obese morbidly obese ORIENTATION/CONSCIOUSNESS: Yes lethargic OTHER: -resting in bed HENMT: COMMON NORMALS: normocephalic, head/scalp atraumatic and hearing grossly normal bilaterally HEAD & SCALP: normocephalic and atraumatic MOUTH: moist mucous membranes abnormal Details: parched Eye: COMMON NORMALS: PERRL, EOMs intact bilaterally and conjunctivae normal CONJUNCTIVA: Yes conjunctivae normal PUPIL: Yes PERRL Neck/C-Spine: COMMON NORMALS: full ROM GENERAL: Yes normal visual inspection and Yes trachea midline Chest: COMMONS NORMALS: inspection of chest normal Resp: COMMON NORMALS: normal respiratory effort, no retractions and no use of accessory muscles EFFORT & INSPECTION: Yes able to speak in complete sentences and Yes symmetric chest movement AUSCULTATION: diminished lung sounds Cardio: COMMON NORMALS: regular rate, regular rhythm, S1 normal heart sound, S2 normal heart sound and no murmurs RATE: regular rate RHYTHM: regular rhythm HEART SOUNDS: S1 normal and S2 normal OTHER: -intermittently hypotensive GI: COMMON NORMALS: normal to inspection, nondistended, normoactive bowel sounds, soft to palpation and non-tender INSPECTION: Yes central obesity PALPATION: Yes soft : BLADDER/KIDNEY EXAM: Yes catheter in place Catheter type (Female): urethral Extremity: COMMON NORMALS: normal to inspection, full ROM and no clubbing, cyanosis or edema; negative for no pedal edema NARRATIVE EXTREMITY EXAM: -RLE: in bulky dressing, external fixators in place, less oozing from site. Wound on medial ankle sutured, well approximated, some duskiness to edges, slight oozing noted. Neuro: COMMON NORMALS: moves all extremities, no focal motor deficits and no sensory deficits noted SENSORIUM/ORIENTATION: Yes lethargic GAIT: Yes other (NWB RLE) Psych: COMMON NORMALS: mental status grossly normal and cooperative SPEECH: Yes slow MOOD & AFFECT: Yes flat affect THOUGHT PROCESS: confused Skin: COMMON NORMALS: no rashes or lesions noted, no jaundice, no petechiae and no mottling GENERAL SKIN EXAM: no rashes or lesions noted Urinary Catheter Management^: Jacobo: Cath Placed During This Visit: yes Urethral Indwelling: Yes Reason for Continuing Indwelling Catheter: Accurate Measurement of Urinary Output in Critically Ill Patients Urinary Catheter Date of Insertion: 06/16/19 Urinary Catheter Time of Insertion: 12:24 Data : 06/19/19 04:28 06/18/19 04:39 A&P Assessment and plan (1) Open right trimalleolar fracture: -secondary to fall while intoxicated -had open wound with contamination from fecal matter -Received a dose of tetanus post-op as not given in ER -fracture reduced in ED -Ortho consult by Dr. Kelley appreciated; POD # 3 s/p OR aggressive surgical debridement and irrigation, external fixator placement -covered with Cefazolin ang-operatively; also got several doses of Zosyn secondary to fecal contamination for anaerobic coverage -pain control as needed -hypotension resolved and off pressor support, continue IV fluid hydration pending improved oral intake and due to low normal BP -VSS though low normal BP; continue to monitor vital signs -on GI soft diet, advance as mental status improves -Jacobo catheter placed in ER; assess daily for removal -Noted leukocytosis with neutrophilic predominance resolved -Chemistry, UA negative -imaging noted, none done for cervical spine -PT/OT evaluations -fall precautions -added oral pain meds to allow for decreased use of morphine and hopefully less somnolence -post-op anemia noted, Hg down to 8.2 today (drop from 13.6 on admission); due to continued drop and low normal BP, will transfuse 2 units PRBCs. EBL-100 mL. Status: Acute Qualifiers: Encounter type: initial encounter Open fracture type: open type I or II Qualified Code(s): S82.851B - Displaced trimalleolar fracture of right lower leg, initial encounter for open fracture type I or II (2) Hypotension: -BP stable -on IVF hydration; off pressor support Status: Resolved Qualifiers: Hypotension type: other hypotension type Qualified Code(s): I95.89 - Other hypotension (3) Essential (primary) hypertension: -close monitoring of vital signs -pressor support as needed to maintain MAP > 65 -IVF hydration -hold oral antihypertensives Status: Chronic (4) Alcohol abuse: -Long history of documented chronic alcohol abuse; acutely intoxicated resulting in fall and subsequent right trimalleolar fracture -EtOH level-206 -Very high risk for alcohol withdrawal -CIWA protocol, thiamine/MVI/folate daily when PO appropriate -fall/seizure/aspiration precautions -1:1 monitoring Status: Chronic (5) CAD (coronary artery disease): -has known hx of CAD with prior stenting -in light of bleeding associated with fracture, will continue to hold ASA, plavix for now Status: Chronic Qualifiers: Associated angina: angina presence unspecified Coronary Disease-Associated Artery/Lesion type: [place] artery [place] vs. transplanted heart: [place] heart Qualified Code(s): I25.10 - Atherosclerotic heart disease of [place] coronary artery without angina pectoris (6) Morbid obesity: -BMI-44 kg/m2 Status: Chronic (7) Chronic obstructive pulmonary disease, unspecified: -no acute exacerbation -supplemental oxygen as needed -continue to monitor respiratory status Status: Chronic Qualifiers: COPD type: unspecified COPD Qualified Code(s): J44.9 - Chronic obstructive pulmonary disease, unspecified (8) Anxiety and depression: -on Ativan, resume hydroxyzine Status: Chronic (9) Osteoarthritis, chronic: Status: Chronic Additional A&P Information -Hyperlipidemia; on statin -Chronic smoker -GERD with recent EGD showing esophagitis and colonoscopy with polypectomy (adenomatous polyp) -GI ppx with PPI -DVT ppx with Lovenox post-op, with caution given bleeding initially and worsening anemia -Dispo: needs SNF placement -Code status: FULL code -Due to acute alcohol intoxication, risk of severe alcohol withdrawal, continue ICU care Attestations Medical Necessity Statement*: Patient requires hospitalization for continued post op care including therapy, pain control, and with worsening anemia, transfusion of blood products. Time Spent in Patient Care: 16 - 35 minutes (>than 50% of time spent in counselling and/or direct pt care on unit). 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 transplanted heart: [place] heart Morbid obesity E66.01 Chronic obstructive pulmonary disease, unspecified J44.9 COPD type: unspecified COPD Anxiety and depression F41.9; F32.9 Osteoarthritis, chronic M19.90
[2019-06-19] MEDS: enoxaparin 40 mg/0.4 mL Syringe SUBCUT (11:57)
[2019-06-19] MEDS: sodium chloride 0.9% 100 ML 150 ML ×2 (13:39→17:47)
--- NOTE | 2019-06-19 14:20 | PC.NURSE ---
Pt extubated. OG removed. Pt tolerated well.
[2019-06-19] MEDS: acetaminophen 325 mg Tablet 650 MG PO (17:46)
[2019-06-19] MEDS: LORazepam 1 mg Tablet PO (17:47)
[2019-06-19] MEDS: ondansetron 2 mg/ML SDV 2 mL 4 MG IVP (22:52)
[2019-06-19] MEDS: oxyCODONE-APAP 5-325 mg Tablet 1 TAB PO (22:52)
[2019-06-20] VITALS (44 sets, daily range): BP systolic 97–142; BP diastolic 61–87; PULSE 62–88; RESP 13–29; TEMP 36.4–36.9; O2SAT 88–100
[2019-06-20] MEDS: oxyCODONE-APAP 5-325 mg Tablet 1 TAB PO ×4 (04:25→17:57)
[2019-06-20 05:17] LABS: Basophils % 0.4 %; Eosinophils # 0.2 10^3/uL (0.0-0.8); Eosinophils % 2.8 %; Hematocrit 33.9 % (37.0-47.0); Hemoglobin 10.7 g/dL (11.5-15.3); Lymphocytes # 1.4 10^3/uL (0.8-4.8); Lymphocytes % 17.5 %; Mean Corpuscular HGB Conc 31.6 g/dL (30.0-36.0); Mean Corpuscular Hemoglobin 28.8 pg (28.0-34.0); Mean Corpuscular Volume 91.1 fL (81-99); Mean Platelet Volume 11.4 fL (7.4-10.4); Monocytes # 0.7 10^3/uL (0.2-0.9); Monocytes % 9.3 %; Neutrophils # 5.6 10^3/uL (1.8-7.7); Neutrophils % 69.6 %; Nucleated Red Blood Cells % 0 %; Platelet Count 160 10^3/cmm (130-400); Red Blood Count 3.72 10^6/uL (4.1-5.3); Red Cell Distribution Width 16.7 % (12.1-15.1)
[2019-06-20] MEDS: thiamine 100 mg Tablet PO (08:37)
[2019-06-20] MEDS: nicotine 14 mg Patch 1 PATCH TRANSDERMA (08:37)
[2019-06-20] MEDS: multivitamin therapeutic Tablet 1 TAB PO (08:37)
[2019-06-20] MEDS: folic acid 1 mg Tablet PO (08:38)
[2019-06-20] MEDS: FUROsemide 20 mg Tablet PO (08:38)
[2019-06-20] MEDS: atorvastatin 40 mg Tablet 80 MG PO (08:38)
[2019-06-20] MEDS: pantoprazole DR 40 mg Tablet PO (08:38)
[2019-06-20] MEDS: aspirin 81 mg Chew Tablet PO (08:38)
[2019-06-20] MEDS: carvedilol 25 mg Tablet PO ×2 (08:38→17:06)
[2019-06-20] MEDS: duloxetine 60 mg Capsule PO ×2 (08:38→17:06)
[2019-06-20] MEDS: clopidogrel 75 mg Tablet PO (08:38)
[2019-06-20] MEDS: cholecalciferol (vitamin D3) 5,000 unit Tablet 5000 UNIT PO (08:39)
[2019-06-20] MEDS: CELEcoxib 200 mg Capsule PO ×2 (08:39→17:06)
[2019-06-20] MEDS: budesonide 0.5 mg/2 mL Neb 1 MG INHALATION (09:09)
--- NOTE | 2019-06-20 09:18 | PM.PN ---
Subjective Subjective: Interval history: She is POD # 4 s/p debridement and irrigation, placement of external fixator. Had 575 mL urine output overnight. AM labs noted, Hg up to 10.7, much more awake and alert this AM. Will d/c Jacobo catheter. Did not require any PRN doses of Ativan overnight. VSS. Dressing changed at bedside by Dr. Kelley, minimal oozing noted. Discussed disposition and patient is agreeable to SNF placement. Will transfer to the floor for continued care given improvement in mental status. One-on-one monitoring has already been discontinued. Medications: Reviewed: Yes Medication Review Details: Active Medications Generic Name Dose Route Start Last Admin Trade Name Freq PRN Reason Stop Dose Admin Acetaminophen 650 mg 06/17/19 14:18 06/19/19 17:46 Tylenol PO 650 mg Q6H PRN Administration Mild pain or feve r Albuterol Sulfate 2.5 mg 06/17/19 00:37 06/20/19 09:10 Albuterol INHALATION 2.5 mg Q6H.RESPIRATORY S CH Administration Aspirin 81 mg 06/17/19 09:00 06/20/19 08:38 Aspirin Chewable PO 81 mg DAILY DANYEL Administration Atorvastatin Calci um 80 mg 06/17/19 09:00 06/20/19 08:38 Lipitor PO 80 mg DAILY DANYEL Administration Budesonide 1 mg 06/17/19 08:00 06/20/19 09:09 Pulmicort INHALATION 1 mg DAILY.RESPIRATORY DANYEL Administration Carvedilol 25 mg 06/16/19 18:00 06/20/19 08:38 Coreg PO 25 mg BID DANYEL Administration Celecoxib 200 mg 06/16/19 18:00 06/20/19 08:39 Celebrex PO 200 mg BID DANYEL Administration Clopidogrel Bisulf ate 75 mg 06/17/19 09:00 06/20/19 08:38 Plavix PO 75 mg DAILY DANYEL Administration Cyclobenzaprine HC l 10 mg 06/16/19 15:20 06/18/19 14:48 Flexeril PO 10 mg TID PRN Administration Muscle Spasm Enoxaparin Sodium 40 mg 06/17/19 12:00 06/19/19 11:57 Lovenox SUBCUT 40 mg Q24H DANYEL Administration Folic Acid 1 mg 06/17/19 09:00 06/20/19 08:38 Folic Acid PO 1 mg DAILY DANYEL Administration Furosemide 20 mg 06/17/19 09:00 06/20/19 08:38 Lasix PO 20 mg DAILY DANYEL Administration Hydroxyzine Pamoat e 25 mg 06/19/19 09:15 Vistaril PO QID PRN ANXIETY Norepinephrine Bit artrate 4 mg 254 mls @ 0 mls/h r 06/16/19 13:00 06/17/19 03:42 / Dextrose IV 0 mcg/min .Q0M DANYEL 0 mls/hr Titration Protocol Per Protocol Dexmedetomidine HC l 400 mcg/ 104 mls @ 0 mls/h r 06/16/19 19:45 Sodium Chloride IV .Q0M DANYEL Protocol Per Protocol Lanolin 1 applic 06/16/19 18:32 Lanolin Oint TOPICAL PRN PRN DRYNESS Lorazepam 1 mg 06/16/19 18:00 06/19/19 17:47 Ativan PO 1 mg QPM DANYEL Administration Lorazepam 2 mg 06/16/19 15:20 Ativan IM Q4H PRN ALCOWD Protocol Lorazepam 2 mg 06/16/19 15:20 06/19/19 03:37 Ativan IVP 2 mg PRN PRN Administration WITHDRAWAL Protocol Lorazepam 2 mg 06/16/19 15:20 Ativan PO Q4H PRN WITHDRAWAL Protocol Meclizine HCl 25 mg 06/16/19 15:20 Antivert PO BID PRN nausea and vomiti ng Morphine Sulfate 2 mg 06/16/19 15:20 06/19/19 03:35 Morphine IVP 2 mg Q4H PRN Administration SEVERE PAIN Multivitamins Ther apeutic 1 tab 06/17/19 09:00 06/20/19 08:37 Multivitamin Tab PO 1 tab DAILY DANYEL Administration Nicotine 1 patch 06/18/19 14:15 06/20/19 08:37 Nicoderm 14 Mg P atch TRANSDERMA 1 patch DAILY DANYEL Administration Ondansetron HCl 4 mg 06/16/19 15:20 06/19/19 22:52 Zofran IVP 4 mg Q6H PRN Administration NAUSEA AND VOMITI NG Oxycodone/Acetamin ophen 1 tab 06/17/19 14:18 06/20/19 08:37 Percocet 5-325 M g PO 1 tab Q4H PRN Administration MODERATE PAIN Pantoprazole Sodiu m 40 mg 06/17/19 09:00 06/20/19 08:38 Protonix PO 40 mg DAILY DANYEL Administration Thiamine Mononitra te 100 mg 06/17/19 09:00 06/20/19 08:37 Vitamin B-1 PO 100 mg DAILY DANYEL Administration Tramadol HCl 50 mg 06/17/19 14:18 06/18/19 17:35 Ultram PO 50 mg Q4H PRN Administration BREAKTHROUGH PAIN Vitamin D 5,000 unit 06/17/19 09:00 06/20/19 08:39 Vitamin D3 PO 5,000 unit DAILY DANYEL Administration ciprofloxacin Adverse Reaction (Unknown, Verified 04/14/19 11:35) ADR-Swelling of the Eye doxycycline Adverse Reaction (Unknown, Verified 04/14/19 11:36) ADR-Vomiting Vitals/I&O/Wt Last Vital Signs Temp 98.2 F 06/20/19 08:00 Pulse 74 06/20/19 09:11 Resp 14 06/20/19 09:11 BP 110/66 06/20/19 08:00 Pulse Ox 95 06/20/19 09:11 06/19/19 06/20/19 06/20/19 22:59 06:59 14:59 Intake Total 900 / 1550 480 / 2030 Output Total 1625 / 1625 250 / 1875 Balance -725 / -75 230 / 155 Weight last 48 hrs Weight 130.72 kg Physical Exam Const: COMMON NORMALS: no apparent distress GENERAL APPEARANCE: cooperative, comfortable and lethargic NUTRITIONAL APPEARANCE: obese morbidly obese ORIENTATION/CONSCIOUSNESS: Yes lethargic OTHER: -sitting in recliner HENMT: COMMON NORMALS: normocephalic, head/scalp atraumatic and hearing grossly normal bilaterally HEAD & SCALP: normocephalic and atraumatic MOUTH: moist mucous membranes abnormal Details: parched Eye: COMMON NORMALS: PERRL, EOMs intact bilaterally and conjunctivae normal CONJUNCTIVA: Yes conjunctivae normal PUPIL: Yes PERRL Neck/C-Spine: COMMON NORMALS: full ROM GENERAL: Yes normal visual inspection and Yes trachea midline Chest: COMMONS NORMALS: inspection of chest normal Resp: COMMON NORMALS: normal respiratory effort, no retractions and no use of accessory muscles EFFORT & INSPECTION: Yes able to speak in complete sentences and Yes symmetric chest movement AUSCULTATION: diminished lung sounds Cardio: COMMON NORMALS: regular rate, regular rhythm, S1 normal heart sound, S2 normal heart sound and no murmurs RATE: regular rate RHYTHM: regular rhythm HEART SOUNDS: S1 normal and S2 normal GI: COMMON NORMALS: normal to inspection, nondistended, normoactive bowel sounds, soft to palpation and non-tender INSPECTION: Yes central obesity PALPATION: Yes soft : BLADDER/KIDNEY EXAM: Yes catheter in place Catheter type (Female): urethral Extremity: COMMON NORMALS: normal to inspection, full ROM and no clubbing, cyanosis or edema; negative for no pedal edema NARRATIVE EXTREMITY EXAM: -RLE: in bulky dressing, external fixators in place, less oozing from site. Wound on medial ankle sutured, well approximated, some duskiness to edges and blister noted on distal part of wound, slight oozing noted. Neuro: COMMON NORMALS: moves all extremities, no focal motor deficits and no sensory deficits noted SENSORIUM/ORIENTATION: Yes lethargic GAIT: Yes other (NWB RLE) Psych: COMMON NORMALS: mental status grossly normal and cooperative SPEECH: Yes slow MOOD & AFFECT: Yes flat affect THOUGHT PROCESS: confused Skin: COMMON NORMALS: no rashes or lesions noted, no jaundice, no petechiae and no mottling GENERAL SKIN EXAM: no rashes or lesions noted Urinary Catheter Management^: Jacobo: Cath Placed During This Visit: yes Urethral Indwelling: Yes Reason for Continuing Indwelling Catheter: Accurate Measurement of Urinary Output in Critically Ill Patients Urinary Catheter Date of Insertion: 06/16/19 Urinary Catheter Time of Insertion: 12:24 Data : 06/20/19 04:18 06/18/19 04:39 A&P Assessment and plan (1) Open right trimalleolar fracture: -secondary to fall while intoxicated -had open wound with contamination from fecal matter -Received a dose of tetanus post-op as not given in ER -fracture reduced in ED -Ortho consult by Dr. Kelley appreciated; POD # 4 s/p OR aggressive surgical debridement and irrigation, external fixator placement -covered with Cefazolin ang-operatively; also got several doses of Zosyn secondary to fecal contamination for anaerobic coverage -pain control as needed -hypotension resolved and off pressor support and IV fluid hydration -VSS; continue to monitor vital signs -on GI soft diet, advance as mental status improves -Jacobo catheter placed in ER; d/c today -Noted leukocytosis with neutrophilic predominance resolved -Chemistry, UA negative -imaging noted, none done for cervical spine -PT/OT evaluations appreciated -fall precautions -added oral pain meds to allow for decreased use of morphine and hopefully less somnolence -post-op anemia noted, s/p transfusion of 2 units PRBCs (06/18), Hg improved to 10.7. EBL-100 mL. Status: Acute Qualifiers: Encounter type: initial encounter Open fracture type: open type I or II Qualified Code(s): S82.851B - Displaced trimalleolar fracture of right lower leg, initial encounter for open fracture type I or II (2) Hypotension: -BP stable -off IVF hydration; off pressor support Status: Resolved Qualifiers: Hypotension type: other hypotension type Qualified Code(s): I95.89 - Other hypotension (3) Essential (primary) hypertension: -close monitoring of vital signs -pressor support as needed to maintain MAP > 65 -off IVF hydration -on oral antihypertensives Status: Chronic (4) Alcohol abuse: -Long history of documented chronic alcohol abuse; acutely intoxicated resulting in fall and subsequent right trimalleolar fracture -EtOH level-206 -Very high risk for alcohol withdrawal -CIWA protocol, thiamine/MVI/folate daily when PO appropriate -fall/seizure/aspiration precautions -1:1 monitoring no longer required as mental status improved Status: Chronic (5) CAD (coronary artery disease): -has known hx of CAD with prior stenting -on ASA, plavix, statin Status: Chronic Qualifiers: Associated angina: angina presence unspecified Coronary Disease-Associated Artery/Lesion type: redding artery [place] vs. transplanted heart: redding heart Qualified Code(s): I25.10 - Atherosclerotic heart disease of redding coronary artery without angina pectoris (6) Morbid obesity: -BMI-50 kg/m2 Status: Chronic (7) Chronic obstructive pulmonary disease, unspecified: -no acute exacerbation -supplemental oxygen as needed -continue to monitor respiratory status Status: Chronic Qualifiers: COPD type: unspecified COPD Qualified Code(s): J44.9 - Chronic obstructive pulmonary disease, unspecified (8) Anxiety and depression: -on Ativan, hydroxyzine Status: Chronic (9) Osteoarthritis, chronic: Status: Chronic Additional A&P Information -Hyperlipidemia; on statin -Chronic smoker -GERD with recent EGD showing esophagitis and colonoscopy with polypectomy (adenomatous polyp) -GI ppx with PPI -DVT ppx with Lovenox post-op, with caution given bleeding initially and worsening anemia -Dispo: needs SNF placement, patient is agreeable to this -Code status: FULL code -transfer to floor for continued care Attestations Medical Necessity Statement*: Patient requires hospitalization for continued post-op care including pain management, therapy, pending appropriate disposition. Time Spent in Patient Care: 16 - 35 minutes (>than 50% of time spent in counselling and/or direct pt care on unit). Coding Level of Care Code Acute Operations Section Manager for g Fwd Exam Comprehensive Diagnoses Open right trimalleolar fracture S82.851B Encounter type: initial encounter Open fracture type: open type I or II Hypotension I95.89 Hypotension type: other hypotension type Essential (primary) hypertension I10 Alcohol abuse F10.10 CAD (coronary artery disease) I25.10 Associated angina: angina presence unspecified Coronary Disease-Associated Artery/Lesion type: redding artery [place] vs. transplanted heart: redding heart Morbid obesity E66.01 Chronic obstructive pulmonary disease, unspecified J44.9 COPD type: unspecified COPD Anxiety and depression F41.9; F32.9 Osteoarthritis, chronic M19.90
--- NOTE | 2019-06-20 10:40 | P.PN_ITS ---
Subjective Subjective: Interval history: Looking much better. Alert and Oriented. Pain control good Vitals/I&O/Wt Last Vital Signs Temp 98.2 F 06/20/19 08:00 Pulse 72 06/20/19 09:19 Resp 15 06/20/19 09:19 BP 110/66 06/20/19 08:00 Pulse Ox 95 06/20/19 09:19 06/19/19 06/20/19 06/20/19 22:59 06:59 14:59 Intake Total 900 / 1550 480 / 2030 Output Total 1625 / 1625 250 / 1875 Balance -725 / -75 230 / 155 Weight last 48 hrs Weight 288 lb 3 oz Physical Exam Narrative: EXAM NARRATIVE: Medial wound with minimal drainage. Slight erythema over anterior skin flap. 3x3cm blister centrally and slight duskiness of skin. Moves toes. palpable DP pule Urinary Catheter Management^: Jacobo: Cath Placed During This Visit: yes Urethral Indwelling: Yes Reason for Continuing Indwelling Catheter: Accurate Measurement of Urinary Output in Critically Ill Patients Urinary Catheter Date of Insertion: 06/16/19 Urinary Catheter Time of Insertion: 12:24 Data : 06/20/19 04:18 06/18/19 04:39 A&P Assessment and plan (1) Open right trimalleolar fracture: Begin pin site care. Continue to mobilize with therapy. Status: Acute Qualifiers: Encounter type: initial encounter Open fracture type: open type I or II Qualified Code(s): S82.851B - Displaced trimalleolar fracture of right lower leg, initial encounter for open fracture type I or II Attestations Medical Necessity Statement*: As per medicine. Will need SNF Coding Level of Care Code Acute Irrigation Installation Specialist for Michael Pool Diagnoses Open right trimalleolar fracture S82.851B Encounter type: initial encounter Open fracture type: open type I or II
[2019-06-20] MEDS: neomycin-poly-bacitracin oint 28 gm 1 APPLIC TOPICAL (12:30)
--- NOTE | 2019-06-20 12:30 | PC.NURSE ---
Report faxed to [facility] [employer]. Further verbal report given to HAIM Romero. PT with patient, assisting her to W/C.
[2019-06-20] MEDS: enoxaparin 40 mg/0.4 mL Syringe SUBCUT (12:31)
--- NOTE | 2019-06-20 13:20 | PC.NURSE ---
Pt transferred to [facility] via W/C. All belongings with pt. Further verbal report given to Marilyn Romero and TRUPTI Oropeza.
[2019-06-20] MEDS: LORazepam 1 mg Tablet PO (17:06)
--- NOTE | 2019-06-20 18:20 | PC.NURSE ---
PT WAS UP TO BEDSIDE COMMODE. TOLD HER THAT I WOULD BE RIGHT BACK WITH HELP TO HELP HER BACK TO BED. I RETURNED AND SHE HAD TRANSFERED HERSELF BACK TO HER BED.
[2019-06-20] MEDS: morphine 4 mg/mL SDV 1 mL 2 MG IVP (20:45)
[2019-06-20] MEDS: cyclobenzaprine 10 mg Tablet PO (23:33)
[2019-06-21] VITALS (17 sets, daily range): BP systolic 90–144; BP diastolic 58–85; PULSE 67–86; RESP 16–24; TEMP 36.8–37.1; O2SAT 92–98
[2019-06-21] MEDS: oxyCODONE-APAP 5-325 mg Tablet 1 TAB PO ×3 (06:05→18:16)
[2019-06-21] MEDS: FUROsemide 20 mg Tablet PO (08:35)
[2019-06-21] MEDS: folic acid 1 mg Tablet PO (08:35)
[2019-06-21] MEDS: carvedilol 25 mg Tablet PO ×2 (08:35→17:55)
[2019-06-21] MEDS: clopidogrel 75 mg Tablet PO (08:35)
[2019-06-21] MEDS: nicotine 14 mg Patch 1 PATCH TRANSDERMA (08:35)
[2019-06-21] MEDS: pantoprazole DR 40 mg Tablet PO (08:35)
[2019-06-21] MEDS: aspirin 81 mg Chew Tablet PO (08:35)
[2019-06-21] MEDS: thiamine 100 mg Tablet PO (08:35)
[2019-06-21] MEDS: multivitamin therapeutic Tablet 1 TAB PO (08:35)
[2019-06-21] MEDS: CELEcoxib 200 mg Capsule PO ×2 (08:35→17:54)
[2019-06-21] MEDS: cholecalciferol (vitamin D3) 5,000 unit Tablet 5000 UNIT PO (08:36)
[2019-06-21] MEDS: atorvastatin 40 mg Tablet 80 MG PO (08:36)
[2019-06-21] MEDS: duloxetine 60 mg Capsule PO ×2 (08:36→17:54)
[2019-06-21] MEDS: budesonide 0.5 mg/2 mL Neb 1 MG INHALATION (09:14)
--- NOTE | 2019-06-21 11:01 | PC.RESP ---
Smoking Cessation and Pulmonary Rehab information to patient with a schedule of pending out-patient classes.
[2019-06-21] MEDS: enoxaparin 40 mg/0.4 mL Syringe SUBCUT (11:14)
--- NOTE | 2019-06-21 11:57 | PM.PN ---
Subjective Subjective: Interval history: POD # 5 s/p debridement and irrigation as well as placement of external fixator. Had 1800 mL urine output overnight. Moved to the floor yesterday afternoon. Vital signs stable. Patient seen and examined, seems fatigued as she just finished working with therapy this seems to have done a little bit more today. Reports some numbness in the dorsum of her right foot. Still has Jacobo catheter in place per her request and does not feel quite ready to have it removed. Medications: Reviewed: Yes Medication Review Details: Active Medications Generic Name Dose Route Start Last Admin Trade Name Freq PRN Reason Stop Dose Admin Acetaminophen 650 mg 06/17/19 14:18 06/19/19 17:46 Tylenol PO 650 mg Q6H PRN Administration Mild pain or feve r Albuterol Sulfate 2.5 mg 06/17/19 00:37 06/21/19 09:15 Albuterol INHALATION 2.5 mg Q6H.RESPIRATORY S CH Administration Aspirin 81 mg 06/17/19 09:00 06/21/19 08:35 Aspirin Chewable PO 81 mg DAILY DANYEL Administration Atorvastatin Calci um 80 mg 06/17/19 09:00 06/21/19 08:36 Lipitor PO 80 mg DAILY DANYEL Administration Budesonide 1 mg 06/17/19 08:00 06/21/19 09:14 Pulmicort INHALATION 1 mg DAILY.RESPIRATORY DANYEL Administration Carvedilol 25 mg 06/16/19 18:00 06/21/19 08:35 Coreg PO 25 mg BID DANYEL Administration Celecoxib 200 mg 06/16/19 18:00 06/21/19 08:35 Celebrex PO 200 mg BID DANYEL Administration Clopidogrel Bisulf ate 75 mg 06/17/19 09:00 06/21/19 08:35 Plavix PO 75 mg DAILY DANYEL Administration Cyclobenzaprine HC l 10 mg 06/16/19 15:20 06/20/19 23:33 Flexeril PO 10 mg TID PRN Administration Muscle Spasm Enoxaparin Sodium 40 mg 06/17/19 12:00 06/21/19 11:14 Lovenox SUBCUT 40 mg Q24H DANYEL Administration Folic Acid 1 mg 06/17/19 09:00 06/21/19 08:35 Folic Acid PO 1 mg DAILY DANYEL Administration Furosemide 20 mg 06/17/19 09:00 06/21/19 08:35 Lasix PO 20 mg DAILY DANYEL Administration Hydroxyzine Pamoat e 25 mg 06/19/19 09:15 Vistaril PO QID PRN ANXIETY Lanolin 1 applic 06/16/19 18:32 Lanolin Oint TOPICAL PRN PRN DRYNESS Lorazepam 1 mg 06/16/19 18:00 06/20/19 17:06 Ativan PO 1 mg QPM DANYEL Administration Lorazepam 2 mg 06/16/19 15:20 Ativan IM Q4H PRN ALCOWD Protocol Lorazepam 2 mg 06/16/19 15:20 06/19/19 03:37 Ativan IVP 2 mg PRN PRN Administration WITHDRAWAL Protocol Lorazepam 2 mg 06/16/19 15:20 Ativan PO Q4H PRN WITHDRAWAL Protocol Meclizine HCl 25 mg 06/16/19 15:20 Antivert PO BID PRN nausea and vomiti ng Morphine Sulfate 2 mg 06/16/19 15:20 06/20/19 20:45 Morphine IVP 2 mg Q4H PRN Administration SEVERE PAIN Multivitamins Ther apeutic 1 tab 06/17/19 09:00 06/21/19 08:35 Multivitamin Tab PO 1 tab DAILY DANYEL Administration Neomycin/Polymyxin /Bacitracin 1 applic 06/20/19 12:15 06/20/19 12:30 Neosporin Oint T ube TOPICAL 1 applic PRN PRN Administration APPLY TO PINS AT DRESSING Nicotine 1 patch 06/18/19 14:15 06/21/19 08:35 Nicoderm 14 Mg P atch TRANSDERMA 1 patch DAILY DANYEL Administration Ondansetron HCl 4 mg 06/16/19 15:20 06/19/19 22:52 Zofran IVP 4 mg Q6H PRN Administration NAUSEA AND VOMITI NG Oxycodone/Acetamin ophen 1 tab 06/17/19 14:18 06/21/19 11:14 Percocet 5-325 M g PO 1 tab Q4H PRN Administration MODERATE PAIN Pantoprazole Sodiu m 40 mg 06/17/19 09:00 06/21/19 08:35 Protonix PO 40 mg DAILY DANYEL Administration Senna/Docusate Sod ium 2 tab 06/21/19 11:55 Senna-S PO BID [facility] Thiamine Mononitra te 100 mg 06/17/19 09:00 06/21/19 08:35 Vitamin B-1 PO 100 mg DAILY DANYEL Administration Tramadol HCl 50 mg 06/17/19 14:18 06/18/19 17:35 Ultram PO 50 mg Q4H PRN Administration BREAKTHROUGH PAIN Vitamin D 5,000 unit 06/17/19 09:00 06/21/19 08:36 Vitamin D3 PO 5,000 unit DAILY DANYEL Administration ciprofloxacin Adverse Reaction (Unknown, Verified 04/14/19 11:35) ADR-Swelling of the Eye doxycycline Adverse Reaction (Unknown, Verified 04/14/19 11:36) ADR-Vomiting Vitals/I&O/Wt Last Vital Signs Temp 98.7 F 06/21/19 08:00 Pulse 83 06/21/19 09:24 Resp 16 06/21/19 11:14 BP 114/70 06/21/19 08:00 Pulse Ox 96 06/21/19 09:17 06/20/19 06/21/19 06/21/19 22:59 06:59 14:59 Intake Total 120 / 120 Output Total 0 / 0 1800 / 1800 Balance 0 / 600 -1800 / -1200 120 / 120 Weight last 48 hrs Weight 130.72 kg Physical Exam Const: COMMON NORMALS: no apparent distress GENERAL APPEARANCE: cooperative and comfortable NUTRITIONAL APPEARANCE: obese morbidly obese OTHER: -Resting in bed HENMT: COMMON NORMALS: normocephalic, head/scalp atraumatic and hearing grossly normal bilaterally HEAD & SCALP: normocephalic and atraumatic MOUTH: moist mucous membranes abnormal Details: parched Eye: COMMON NORMALS: PERRL, EOMs intact bilaterally and conjunctivae normal CONJUNCTIVA: Yes conjunctivae normal PUPIL: Yes PERRL Neck/C-Spine: COMMON NORMALS: full ROM GENERAL: Yes normal visual inspection and Yes trachea midline Chest: COMMONS NORMALS: inspection of chest normal Resp: COMMON NORMALS: normal respiratory effort, no retractions and no use of accessory muscles EFFORT & INSPECTION: Yes able to speak in complete sentences and Yes symmetric chest movement AUSCULTATION: diminished lung sounds Cardio: COMMON NORMALS: regular rate, regular rhythm, S1 normal heart sound, S2 normal heart sound and no murmurs RATE: regular rate RHYTHM: regular rhythm HEART SOUNDS: S1 normal and S2 normal GI: COMMON NORMALS: normal to inspection, nondistended, normoactive bowel sounds, soft to palpation and non-tender INSPECTION: Yes central obesity PALPATION: Yes soft : BLADDER/KIDNEY EXAM: Yes catheter in place Catheter type (Female): urethral Extremity: COMMON NORMALS: normal to inspection, full ROM and no clubbing, cyanosis or edema; negative for no pedal edema NARRATIVE EXTREMITY EXAM: -RLE: in bulky dressing, external fixators in place, minimal oozing from site. Wound on medial ankle sutured, well approximated, some duskiness to edges and blister noted on distal part of wound, slight oozing noted. Neuro: COMMON NORMALS: moves all extremities, no focal motor deficits and no sensory deficits noted GAIT: Yes other (NWB RLE) Psych: COMMON NORMALS: mental status grossly normal and cooperative SPEECH: Yes slow MOOD & AFFECT: Yes flat affect Skin: COMMON NORMALS: no rashes or lesions noted, no jaundice, no petechiae and no mottling GENERAL SKIN EXAM: no rashes or lesions noted Urinary Catheter Management^: Jacobo: Cath Placed During This Visit: yes Urethral Indwelling: Yes Reason for Continuing Indwelling Catheter: Accurate Measurement of Urinary Output in Critically Ill Patients Urinary Catheter Date of Insertion: 06/16/19 Urinary Catheter Time of Insertion: 12:24 Data : 06/20/19 04:18 06/18/19 04:39 A&P Assessment and plan (1) Open right trimalleolar fracture: -secondary to fall while intoxicated -had open wound with contamination from fecal matter -Received a dose of tetanus post-op as not given in ER -fracture reduced in ED -Ortho consult by Dr. Kelley appreciated; POD # 5 s/p OR aggressive surgical debridement and irrigation, external fixator placement -covered with Cefazolin ang-operatively; also got several doses of Zosyn secondary to fecal contamination for anaerobic coverage -pain control as needed -hypotension resolved and off pressor support and IV fluid hydration -VSS; continue to monitor vital signs -advance to cardiac diet -Jacobo catheter placed in ER; d/c today -Noted leukocytosis with neutrophilic predominance resolved -Chemistry, UA negative -imaging noted, none done for cervical spine -PT/OT evaluations appreciated -fall precautions -on oral pain meds to allow for decreased use of morphine -post-op anemia noted, s/p transfusion of 2 units PRBCs (06/18), Hg improved to 10.7. EBL-100 mL. -no BMs so far and on narcotics, add bowel regimen Status: Acute Qualifiers: Encounter type: initial encounter Open fracture type: open type I or II Qualified Code(s): S82.851B - Displaced trimalleolar fracture of right lower leg, initial encounter for open fracture type I or II (2) Hypotension: -BP stable -off IVF hydration; off pressor support Status: Resolved Qualifiers: Hypotension type: other hypotension type Qualified Code(s): I95.89 - Other hypotension (3) Essential (primary) hypertension: -close monitoring of vital signs -off pressor support as needed to maintain MAP > 65; off IVF hydration -on oral antihypertensives Status: Chronic (4) Alcohol abuse: -Long history of documented chronic alcohol abuse; acutely intoxicated resulting in fall and subsequent right trimalleolar fracture -EtOH level-206 -with timeline since last drink, less likely to experience alcohol withdrawal -CIWA protocol, thiamine/MVI/folate daily -fall/seizure/aspiration precautions -1:1 monitoring no longer required as mental status improved Status: Chronic (5) CAD (coronary artery disease): -has known hx of CAD with prior stenting -on ASA, plavix, statin Status: Chronic Qualifiers: Associated angina: angina presence unspecified Coronary Disease-Associated Artery/Lesion type: [place] artery [place] vs. transplanted heart: [place] heart Qualified Code(s): I25.10 - Atherosclerotic heart disease of [place] coronary artery without angina pectoris (6) Morbid obesity: -BMI-50 kg/m2 Status: Chronic (7) Chronic obstructive pulmonary disease, unspecified: -no acute exacerbation -supplemental oxygen as needed -continue to monitor respiratory status Status: Chronic Qualifiers: COPD type: unspecified COPD Qualified Code(s): J44.9 - Chronic obstructive pulmonary disease, unspecified (8) Anxiety and depression: -on Ativan, hydroxyzine Status: Chronic (9) Osteoarthritis, chronic: Status: Chronic Additional A&P Information -Hyperlipidemia; on statin -Chronic smoker -GERD with recent EGD showing esophagitis and colonoscopy with polypectomy (adenomatous polyp) -GI ppx with PPI -DVT ppx with Lovenox post-op, with caution given bleeding initially and worsening anemia -Dispo: needs SNF placement, patient is agreeable to this, otherwise home potentially with home health -Code status: FULL code Attestations Medical Necessity Statement*: Patient requires hospitalization for continued post-op care including therapy, pain control; pending appropriate disposition. Time Spent in Patient Care: 16 - 35 minutes (>than 50% of time spent in counselling and/or direct pt care on unit). Coding Level of Care Code Acute International Trade Teacher for [facility] Fwd Exam Comprehensive Diagnoses Open right trimalleolar fracture S82.851B Encounter type: initial encounter Open fracture type: open type I or II Hypotension I95.89 Hypotension type: other hypotension type Essential (primary) hypertension I10 Alcohol abuse F10.10 CAD (coronary artery disease) I25.10 Associated angina: angina presence unspecified Coronary Disease-Associated Artery/Lesion type: [place] artery [place] vs. transplanted heart: [place] heart Morbid obesity E66.01 Chronic obstructive pulmonary disease, unspecified J44.9 COPD type: unspecified COPD Anxiety and depression F41.9; F32.9 Osteoarthritis, chronic M19.90
[2019-06-21] MEDS: sennosides-docusate Tablet 2 TAB PO ×2 (12:51→17:54)
[2019-06-21] MEDS: polyethylene glycol 3350 Pkt 17 gm PO (12:51)
[2019-06-21] MEDS: acetaminophen 325 mg Tablet 650 MG PO (16:07)
[2019-06-21] MEDS: LORazepam 1 mg Tablet PO (17:54)
[2019-06-21] MEDS: neomycin-poly-bacitracin oint 28 gm 1 APPLIC TOPICAL (18:09)
[2019-06-21 21:17] LABS: Glucose Point of Care 107 mg/dL (70-110)
[2019-06-21] MEDS: TRAMadol 50 mg Tablet PO (23:17)
[2019-06-21] MEDS: gabapentin 300 mg Capsule PO (23:30)
[2019-06-22] VITALS (14 sets, daily range): BP systolic 118–143; BP diastolic 76–85; PULSE 61–89; RESP 15–20; TEMP 36.6–37.1; O2SAT 88–98; BMI 51.5
[2019-06-22] MEDS: oxyCODONE-APAP 5-325 mg Tablet 1 TAB PO ×3 (01:55→22:31)
[2019-06-22 05:35] LABS: Hematocrit 33.9 % (37.0-47.0); Hemoglobin 10.7 g/dL (11.5-15.3)
[2019-06-22] MEDS: acetaminophen 325 mg Tablet 650 MG PO (06:09)
[2019-06-22 06:35] LABS: Glucose Point of Care 99 mg/dL (70-110)
[2019-06-22] MEDS: clopidogrel 75 mg Tablet PO (08:46)
[2019-06-22] MEDS: carvedilol 25 mg Tablet PO ×2 (08:46→18:06)
[2019-06-22] MEDS: polyethylene glycol 3350 Pkt 17 gm PO (08:46)
[2019-06-22] MEDS: atorvastatin 40 mg Tablet 80 MG PO (08:46)
[2019-06-22] MEDS: aspirin 81 mg Chew Tablet PO (08:46)
[2019-06-22] MEDS: sennosides-docusate Tablet 2 TAB PO ×2 (08:46→18:07)
[2019-06-22] MEDS: cholecalciferol (vitamin D3) 5,000 unit Tablet 5000 UNIT PO (08:47)
[2019-06-22] MEDS: pantoprazole DR 40 mg Tablet PO (08:47)
[2019-06-22] MEDS: thiamine 100 mg Tablet PO (08:47)
[2019-06-22] MEDS: duloxetine 60 mg Capsule PO ×2 (08:48→18:06)
[2019-06-22] MEDS: FUROsemide 20 mg Tablet PO (08:48)
[2019-06-22] MEDS: nicotine 14 mg Patch 1 PATCH TRANSDERMA (08:48)
[2019-06-22] MEDS: multivitamin therapeutic Tablet 1 TAB PO (08:48)
[2019-06-22] MEDS: CELEcoxib 200 mg Capsule PO ×2 (09:08→18:06)
[2019-06-22] MEDS: morphine 4 mg/mL SDV 1 mL 2 MG IVP (09:10)
[2019-06-22] MEDS: ondansetron 2 mg/ML SDV 2 mL 4 MG IVP ×2 (09:11→19:46)
[2019-06-22] MEDS: folic acid 1 mg Tablet PO (09:11)
[2019-06-22] MEDS: budesonide 0.5 mg/2 mL Neb 1 MG INHALATION (09:41)
[2019-06-22] MEDS: enoxaparin 40 mg/0.4 mL Syringe SUBCUT (11:45)
--- NOTE | 2019-06-22 11:49 | PM.PN ---
Subjective Subjective: Interval history: Patient seen and examined, seems to be in better spirits as it seems she had a difficult night mostly because of pain in her right lower extremity. Agreeable to removal of Jacobo catheter today. Agreeable to SNF placement as well due to the degree of assistance that she is requiring, which case management is working on. Nursing staff reports issues with anxiety. She is POD # 6, stable Hg. Had small BM earlier this AM. Medications: Reviewed: Yes Medication Review Details: Active Medications Generic Name Dose Route Start Last Admin Trade Name Freq PRN Reason Stop Dose Admin Acetaminophen 650 mg 06/17/19 14:18 06/22/19 06:09 Tylenol PO 650 mg Q6H PRN Administration Mild pain or feve r Albuterol Sulfate 2.5 mg 06/17/19 00:37 06/22/19 09:41 Albuterol INHALATION 2.5 mg Q6H.RESPIRATORY S CH Administration Aspirin 81 mg 06/17/19 09:00 06/22/19 08:46 Aspirin Chewable PO 81 mg DAILY DANYEL Administration Atorvastatin Calci um 80 mg 06/17/19 09:00 06/22/19 08:46 Lipitor PO 80 mg DAILY DANYEL Administration Budesonide 1 mg 06/17/19 08:00 06/22/19 09:41 Pulmicort INHALATION 1 mg DAILY.RESPIRATORY DANYEL Administration Carvedilol 25 mg 06/16/19 18:00 06/22/19 08:46 Coreg PO 25 mg BID DANYEL Administration Celecoxib 200 mg 06/16/19 18:00 06/22/19 09:08 Celebrex PO 200 mg BID DANYEL Administration Clopidogrel Bisulf ate 75 mg 06/17/19 09:00 06/22/19 08:46 Plavix PO 75 mg DAILY DANYEL Administration Cyclobenzaprine HC l 10 mg 06/16/19 15:20 06/20/19 23:33 Flexeril PO 10 mg TID PRN Administration Muscle Spasm Enoxaparin Sodium 40 mg 06/17/19 12:00 06/22/19 11:45 Lovenox SUBCUT 40 mg Q24H DANYEL Administration Folic Acid 1 mg 06/17/19 09:00 06/22/19 09:11 Folic Acid PO 1 mg DAILY DANYEL Administration Furosemide 20 mg 06/17/19 09:00 06/22/19 08:48 Lasix PO 20 mg DAILY DANYEL Administration Hydroxyzine Pamoat e 25 mg 06/19/19 09:15 Vistaril PO QID PRN ANXIETY Lanolin 1 applic 06/16/19 18:32 Lanolin Oint TOPICAL PRN PRN DRYNESS Lorazepam 1 mg 06/16/19 18:00 06/21/19 17:54 Ativan PO 1 mg QPM DANYEL Administration Lorazepam 2 mg 06/16/19 15:20 Ativan IM Q4H PRN ALCOWD Protocol Lorazepam 2 mg 06/16/19 15:20 06/19/19 03:37 Ativan IVP 2 mg PRN PRN Administration WITHDRAWAL Protocol Lorazepam 2 mg 06/16/19 15:20 Ativan PO Q4H PRN WITHDRAWAL Protocol Meclizine HCl 25 mg 06/16/19 15:20 Antivert PO BID PRN nausea and vomiti ng Morphine Sulfate 2 mg 06/16/19 15:20 06/22/19 09:10 Morphine IVP 2 mg Q4H PRN Administration SEVERE PAIN Multivitamins Ther apeutic 1 tab 06/17/19 09:00 06/22/19 08:48 Multivitamin Tab PO 1 tab DAILY DANYEL Administration Neomycin/Polymyxin /Bacitracin 1 applic 06/20/19 12:15 06/21/19 18:09 Neosporin Oint T ube TOPICAL 1 applic PRN PRN Administration APPLY TO PINS AT DRESSING Nicotine 1 patch 06/18/19 14:15 06/22/19 08:48 Nicoderm 14 Mg P atch TRANSDERMA 1 patch DAILY DANYEL Administration Ondansetron HCl 4 mg 06/16/19 15:20 06/22/19 09:11 Zofran IVP 4 mg Q6H PRN Administration NAUSEA AND VOMITI NG Oxycodone/Acetamin ophen 1 tab 06/17/19 14:18 06/22/19 01:55 Percocet 5-325 M g PO 1 tab Q4H PRN Administration MODERATE PAIN Pantoprazole Sodiu m 40 mg 06/17/19 09:00 06/22/19 08:47 Protonix PO 40 mg DAILY DANYEL Administration Polyethylene Glyco l 17 gm 06/21/19 12:00 06/22/19 08:46 Miralax PO 17 gm DAILY DANYEL Administration Senna/Docusate Sod ium 2 tab 06/21/19 11:55 06/22/19 08:46 Senna-S PO 2 tab BID DANYEL Administration Thiamine Mononitra te 100 mg 06/17/19 09:00 06/22/19 08:47 Vitamin B-1 PO 100 mg DAILY DANYEL Administration Tramadol HCl 50 mg 06/17/19 14:18 06/21/19 23:17 Ultram PO 50 mg Q4H PRN Administration BREAKTHROUGH PAIN Vitamin D 5,000 unit 06/17/19 09:00 06/22/19 08:47 Vitamin D3 PO 5,000 unit DAILY DANYEL Administration ciprofloxacin Adverse Reaction (Unknown, Verified 04/14/19 11:35) ADR-Swelling of the Eye doxycycline Adverse Reaction (Unknown, Verified 04/14/19 11:36) ADR-Vomiting Vitals/I&O/Wt Last Vital Signs Temp 98.3 F 06/22/19 08:00 Pulse 61 06/22/19 09:48 Resp 15 06/22/19 09:48 BP 126/77 06/22/19 08:00 Pulse Ox 95 06/22/19 09:48 06/21/19 06/22/19 06/22/19 22:59 06:59 14:59 Intake Total 960 / 1200 300 / 1500 480 / 480 Output Total 425 / 425 525 / 950 Balance 535 / 775 -225 / 550 480 / 480 Weight last 48 hrs Weight 132.131 kg Weight 130 kg Physical Exam Const: COMMON NORMALS: no apparent distress GENERAL APPEARANCE: cooperative and comfortable NUTRITIONAL APPEARANCE: obese morbidly obese OTHER: -sitting up in bed HENMT: COMMON NORMALS: normocephalic, head/scalp atraumatic and hearing grossly normal bilaterally HEAD & SCALP: normocephalic and atraumatic MOUTH: moist mucous membranes abnormal Details: parched Eye: COMMON NORMALS: PERRL, EOMs intact bilaterally and conjunctivae normal CONJUNCTIVA: Yes conjunctivae normal PUPIL: Yes PERRL Neck/C-Spine: COMMON NORMALS: full ROM GENERAL: Yes normal visual inspection and Yes trachea midline Chest: COMMONS NORMALS: inspection of chest normal Resp: COMMON NORMALS: normal respiratory effort, no retractions and no use of accessory muscles EFFORT & INSPECTION: Yes able to speak in complete sentences and Yes symmetric chest movement AUSCULTATION: diminished lung sounds Cardio: COMMON NORMALS: regular rate, regular rhythm, S1 normal heart sound, S2 normal heart sound and no murmurs RATE: regular rate RHYTHM: regular rhythm HEART SOUNDS: S1 normal and S2 normal GI: COMMON NORMALS: normal to inspection, nondistended, normoactive bowel sounds, soft to palpation and non-tender INSPECTION: Yes central obesity PALPATION: Yes soft : BLADDER/KIDNEY EXAM: Yes catheter in place Catheter type (Female): urethral Extremity: COMMON NORMALS: normal to inspection, full ROM and no clubbing, cyanosis or edema; negative for no pedal edema NARRATIVE EXTREMITY EXAM: -RLE: in bulky dressing, external fixators in place, minimal oozing from site. Wound on medial ankle sutured, well approximated, some duskiness to edges and blister noted on distal part of wound, slight oozing noted. Neuro: COMMON NORMALS: moves all extremities, no focal motor deficits and no sensory deficits noted GAIT: Yes other (NWB RLE) Psych: COMMON NORMALS: mental status grossly normal, cooperative, affect normal and speech normal SPEECH: Yes normal speech Skin: COMMON NORMALS: no rashes or lesions noted, no jaundice, no petechiae and no mottling GENERAL SKIN EXAM: no rashes or lesions noted Urinary Catheter Management^: Jacobo: Cath Placed During This Visit: yes Urethral Indwelling: Yes Reason for Continuing Indwelling Catheter: Accurate Measurement of Urinary Output in Critically Ill Patients Urinary Catheter Date of Insertion: 06/16/19 Urinary Catheter Time of Insertion: 12:24 Data : 06/22/19 04:57 06/18/19 04:39 A&P Assessment and plan (1) Open right trimalleolar fracture: -secondary to fall while intoxicated -had open wound with contamination from fecal matter -Received a dose of tetanus post-op as not given in ER -fracture reduced in ED -Ortho consult by Dr. Kelley appreciated; POD # 6 s/p OR aggressive surgical debridement and irrigation, external fixator placement. Pin site care as outlined by Dr. Kelley -covered with Cefazolin ang-operatively; also got several doses of Zosyn secondary to fecal contamination for anaerobic coverage -pain control as needed -hypotension resolved and off pressor support and IV fluid hydration -VSS; continue to monitor vital signs -on cardiac diet -Jacobo catheter placed in ER; d/c today -Noted leukocytosis with neutrophilic predominance resolved -Chemistry, UA negative -imaging noted, none done for cervical spine -PT/OT evaluations appreciated -fall precautions -on oral pain meds to allow for decreased use of morphine -post-op anemia noted, s/p transfusion of 2 units PRBCs (06/18), Hg improved to 10.7. EBL-100 mL. -on bowel regimen Status: Acute Qualifiers: Encounter type: initial encounter Open fracture type: open type I or II Qualified Code(s): S82.851B - Displaced trimalleolar fracture of right lower leg, initial encounter for open fracture type I or II (2) Hypotension: -BP stable -off IVF hydration; off pressor support Status: Resolved Qualifiers: Hypotension type: other hypotension type Qualified Code(s): I95.89 - Other hypotension (3) Essential (primary) hypertension: -close monitoring of vital signs -off pressor support as needed to maintain MAP > 65; off IVF hydration -on oral antihypertensives Status: Chronic (4) Alcohol abuse: -Long history of documented chronic alcohol abuse; acutely intoxicated resulting in fall and subsequent right trimalleolar fracture -EtOH level-206 -with timeline since last drink, less likely to experience alcohol withdrawal -CIWA protocol, thiamine/MVI/folate daily -fall/seizure/aspiration precautions -1:1 monitoring no longer required as mental status improved Status: Chronic (5) CAD (coronary artery disease): -has known hx of CAD with prior stenting -on ASA, plavix, statin Status: Chronic Qualifiers: Coronary Disease-Associated Artery/Lesion type: [place] artery [place] vs. transplanted heart: [place] heart Associated angina: angina presence unspecified Qualified Code(s): I25.10 - Atherosclerotic heart disease of [place] coronary artery without angina pectoris (6) Morbid obesity: -BMI-52 kg/m2 Status: Chronic (7) Chronic obstructive pulmonary disease, unspecified: -no acute exacerbation -supplemental oxygen as needed -continue to monitor respiratory status Status: Chronic Qualifiers: COPD type: unspecified COPD Qualified Code(s): J44.9 - Chronic obstructive pulmonary disease, unspecified (8) Anxiety and depression: -on Ativan, hydroxyzine Status: Chronic (9) Osteoarthritis, chronic: Status: Chronic Additional A&P Information -Hyperlipidemia; on statin -Chronic smoker -GERD with recent EGD showing esophagitis and colonoscopy with polypectomy (adenomatous polyp) -GI ppx with PPI -DVT ppx with Lovenox post-op, with caution given bleeding initially and worsening anemia -Dispo: needs SNF placement, patient is agreeable to this, otherwise home potentially with home health -Code status: FULL code Attestations Medical Necessity Statement*: Patient requires hospitalization for continued post-op care including therapy, pain control, pending appropriate disposition. Time Spent in Patient Care: 16 - 35 minutes (>than 50% of time spent in counselling and/or direct pt care on unit). Coding Level of Care Code Acute Financial Planning Assistant for g Fwd Diagnoses Open right trimalleolar fracture S82.851B Encounter type: initial encounter Open fracture type: open type I or II Hypotension I95.89 Hypotension type: other hypotension type Essential (primary) hypertension I10 Alcohol abuse F10.10 CAD (coronary artery disease) I25.10 Coronary Disease-Associated Artery/Lesion type: [place] artery [place] vs. transplanted heart: [place] heart Associated angina: angina presence unspecified Morbid obesity E66.01 Chronic obstructive pulmonary disease, unspecified J44.9 COPD type: unspecified COPD Anxiety and depression F41.9; F32.9 Osteoarthritis, chronic M19.90
--- NOTE | 2019-06-22 11:55 | PC.CHAP ---
Pastoral Care Encounter/Spiritual Assessment Type of Contact [] Declined screen printing stencil preparer visit [] Patient/Family/Request visit [] Outpatient visit [] Follow-up visit [] Physician referral [] Code/Alert [x] Routine visit [] Staff referral [] Actively dying [] Patient sleeping [] Family support [] [] Out of room [] Palliative care [] [] Receiving care in room [] Pre-surgical visit [] Trauma [] Long length of stay [] ICU visit [] Other: Relational/Emotional Strength [] Patient feels connected with others/family/visitors/staff [] Distress [x] Loneliness/isolation [] Abandonment Spirituality of Patient [] Person of Eveline [] Attends Hindu of their Eveline [] Believes in Prayer [] Reads Bible or Worship materials [x] There are Spiritual issues to be addressed Gliding Pilot Instructor Interventions [x] Prayer [x] Active listening [x] Non-anxious presence [x] Spiritual/emotional support [] Crisis/trauma care [] Spiritual counseling [] Bereavement support [] Provided bereavement packet [] Provided Bible/devotional materials [] Provided toy/stuffed animal, coloring book to patient or family member [] Provided Communion [] Anointing/[place] [] Salvation [x] Completed spiritual assessment [] Other: Impact on Illness or Injury [] Angry [] Fearful [] Anxious [] Often cries [] Exhaustion [] Unable to work [] Unable to attend mormon [] Unable to walk/stand [] Unable to read [] Unable to drive [] Unable to eat/drink [] Unable to sleep [] Unable to be with family [] Patient intubated [x] Other: Summary Patient resides by herself and has adult children who live in [place]. Patient is concerned about paying both current bills and for her re-hab. Patient was confused regardintg the [place] of [place], whereby the gospel was proclaimed and prayer provided. Time spent with patient 15 minutes
[2019-06-22] MEDS: hyDROXYzine 25 mg Capsule PO (11:59)
[2019-06-22] MEDS: neomycin-poly-bacitracin oint 28 gm 1 APPLIC TOPICAL (16:53)
[2019-06-23] VITALS (17 sets, daily range): BP systolic 109–132; BP diastolic 65–80; PULSE 63–81; RESP 14–18; TEMP 36.6–36.9; O2SAT 93–97
[2019-06-23] MEDS: ondansetron 2 mg/ML SDV 2 mL 4 MG IVP (02:27)
[2019-06-23] MEDS: LORazepam 1 mg Tablet PO ×2 (02:27→20:35)
[2019-06-23] MEDS: oxyCODONE-APAP 5-325 mg Tablet 1 TAB PO ×4 (02:28→20:33)
[2019-06-23] MEDS: budesonide 0.5 mg/2 mL Neb 1 MG INHALATION (08:38)
[2019-06-23] MEDS: sennosides-docusate Tablet 2 TAB PO ×2 (08:52→17:40)
[2019-06-23] MEDS: CELEcoxib 200 mg Capsule PO ×2 (08:53→17:41)
[2019-06-23] MEDS: clopidogrel 75 mg Tablet PO (08:53)
[2019-06-23] MEDS: carvedilol 25 mg Tablet PO ×2 (08:53→17:41)
[2019-06-23] MEDS: duloxetine 60 mg Capsule PO ×2 (08:53→17:41)
[2019-06-23] MEDS: folic acid 1 mg Tablet PO (08:53)
[2019-06-23] MEDS: pantoprazole DR 40 mg Tablet PO (08:53)
[2019-06-23] MEDS: atorvastatin 40 mg Tablet 80 MG PO (08:53)
[2019-06-23] MEDS: FUROsemide 20 mg Tablet PO (08:53)
[2019-06-23] MEDS: aspirin 81 mg Chew Tablet PO (08:53)
[2019-06-23] MEDS: cholecalciferol (vitamin D3) 5,000 unit Tablet 5000 UNIT PO (08:54)
[2019-06-23] MEDS: thiamine 100 mg Tablet PO (08:54)
[2019-06-23] MEDS: polyethylene glycol 3350 Pkt 17 gm PO (08:54)
[2019-06-23] MEDS: nicotine 14 mg Patch 1 PATCH TRANSDERMA (08:54)
[2019-06-23] MEDS: multivitamin therapeutic Tablet 1 TAB PO (08:54)
--- NOTE | 2019-06-23 10:09 | PM.PN ---
Subjective Subjective: Interval history: Has been able to void since removal of Jacobo catheter, had 850 mL urine output overnight. Vital signs stable. She is postop day #7. Patient seen and examined, resting in bed, just had her second therapy session of the day so has some discomfort in the right lower extremity. Just informed by case management that patient has been declined at local SNF facilities. Patient is aware that she will be going home, is agreeable to home health and requests a bedside commode. She states that she already has a walker. Medications: Reviewed: Yes Medication Review Details: Active Medications Generic Name Dose Route Start Last Admin Trade Name Freq PRN Reason Stop Dose Admin Acetaminophen 650 mg 06/17/19 14:18 06/22/19 06:09 Tylenol PO 650 mg Q6H PRN Administration Mild pain or feve r Albuterol Sulfate 2.5 mg 06/17/19 00:37 06/23/19 08:38 Albuterol INHALATION 2.5 mg Q6H.RESPIRATORY S CH Administration Aspirin 81 mg 06/17/19 09:00 06/23/19 08:53 Aspirin Chewable PO 81 mg DAILY DANYEL Administration Atorvastatin Calci um 80 mg 06/17/19 09:00 06/23/19 08:53 Lipitor PO 80 mg DAILY DANYEL Administration Budesonide 1 mg 06/17/19 08:00 06/23/19 08:38 Pulmicort INHALATION 1 mg DAILY.RESPIRATORY DANYEL Administration Carvedilol 25 mg 06/16/19 18:00 06/23/19 08:53 Coreg PO 25 mg BID DANYEL Administration Celecoxib 200 mg 06/16/19 18:00 06/23/19 08:53 Celebrex PO 200 mg BID DANYEL Administration Clopidogrel Bisulf ate 75 mg 06/17/19 09:00 06/23/19 08:53 Plavix PO 75 mg DAILY DANYEL Administration Cyclobenzaprine HC l 10 mg 06/16/19 15:20 06/20/19 23:33 Flexeril PO 10 mg TID PRN Administration Muscle Spasm Enoxaparin Sodium 40 mg 06/17/19 12:00 06/22/19 11:45 Lovenox SUBCUT 40 mg Q24H DANYEL Administration Folic Acid 1 mg 06/17/19 09:00 06/23/19 08:53 Folic Acid PO 1 mg DAILY DANYEL Administration Furosemide 20 mg 06/17/19 09:00 06/23/19 08:53 Lasix PO 20 mg DAILY DANYEL Administration Hydroxyzine Pamoat e 25 mg 06/19/19 09:15 06/22/19 11:59 Vistaril PO 25 mg QID PRN Administration ANXIETY Lanolin 1 applic 06/16/19 18:32 Lanolin Oint TOPICAL PRN PRN DRYNESS Lorazepam 1 mg 06/22/19 12:15 06/23/19 02:27 Ativan PO 1 mg TID PRN Administration ANXIETY Meclizine HCl 25 mg 06/16/19 15:20 Antivert PO BID PRN nausea and vomiti ng Morphine Sulfate 2 mg 06/16/19 15:20 06/22/19 09:10 Morphine IVP 2 mg Q4H PRN Administration SEVERE PAIN Multivitamins Ther apeutic 1 tab 06/17/19 09:00 06/23/19 08:54 Multivitamin Tab PO 1 tab DAILY DANYEL Administration Neomycin/Polymyxin /Bacitracin 1 applic 06/20/19 12:15 06/22/19 16:53 Neosporin Oint T ube TOPICAL 1 applic PRN PRN Administration APPLY TO PINS AT DRESSING Nicotine 1 patch 06/18/19 14:15 06/23/19 08:54 Nicoderm 14 Mg P atch TRANSDERMA 1 patch DAILY DANYEL Administration Ondansetron HCl 4 mg 06/16/19 15:20 06/23/19 02:27 Zofran IVP 4 mg Q6H PRN Administration NAUSEA AND VOMITI NG Oxycodone/Acetamin ophen 1 tab 06/17/19 14:18 06/23/19 08:54 Percocet 5-325 M g PO 1 tab Q4H PRN Administration MODERATE PAIN Pantoprazole Sodiu m 40 mg 06/17/19 09:00 06/23/19 08:53 Protonix PO 40 mg DAILY DANYEL Administration Polyethylene Glyco l 17 gm 06/21/19 12:00 06/23/19 08:54 Miralax PO 17 gm DAILY DANYEL Administration Senna/Docusate Sod ium 2 tab 06/21/19 11:55 06/23/19 08:52 Senna-S PO 2 tab BID DANYEL Administration Thiamine Mononitra te 100 mg 06/17/19 09:00 06/23/19 08:54 Vitamin B-1 PO 100 mg DAILY DANYEL Administration Tramadol HCl 50 mg 06/17/19 14:18 06/21/19 23:17 Ultram PO 50 mg Q4H PRN Administration BREAKTHROUGH PAIN Vitamin D 5,000 unit 06/17/19 09:00 06/23/19 08:54 Vitamin D3 PO 5,000 unit DAILY DANYEL Administration ciprofloxacin Adverse Reaction (Unknown, Verified 04/14/19 11:35) ADR-Swelling of the Eye doxycycline Adverse Reaction (Unknown, Verified 04/14/19 11:36) ADR-Vomiting Vitals/I&O/Wt Last Vital Signs Temp 98.1 F 06/23/19 07:54 Pulse 81 06/23/19 08:41 Resp 16 06/23/19 08:54 BP 132/76 06/23/19 07:54 Pulse Ox 95 06/23/19 08:41 06/22/19 06/23/19 06/23/19 22:59 06:59 14:59 Intake Total 120 / 600 600 / 1200 50 / 50 Output Total 200 / 200 650 / 850 300 / 300 Balance -80 / 400 -50 / 350 -250 / -250 Weight last 48 hrs Weight 132.131 kg Physical Exam Const: COMMON NORMALS: no apparent distress GENERAL APPEARANCE: cooperative and comfortable NUTRITIONAL APPEARANCE: obese morbidly obese OTHER: -sitting up in bed HENMT: COMMON NORMALS: normocephalic, head/scalp atraumatic and hearing grossly normal bilaterally HEAD & SCALP: normocephalic and atraumatic MOUTH: moist mucous membranes abnormal Details: parched Eye: COMMON NORMALS: PERRL, EOMs intact bilaterally and conjunctivae normal CONJUNCTIVA: Yes conjunctivae normal PUPIL: Yes PERRL Neck/C-Spine: COMMON NORMALS: full ROM GENERAL: Yes normal visual inspection and Yes trachea midline Chest: COMMONS NORMALS: inspection of chest normal Resp: COMMON NORMALS: normal respiratory effort, no retractions and no use of accessory muscles EFFORT & INSPECTION: Yes able to speak in complete sentences and Yes symmetric chest movement AUSCULTATION: diminished lung sounds Cardio: COMMON NORMALS: regular rate, regular rhythm, S1 normal heart sound, S2 normal heart sound and no murmurs RATE: regular rate RHYTHM: regular rhythm HEART SOUNDS: S1 normal and S2 normal GI: COMMON NORMALS: normal to inspection, nondistended, normoactive bowel sounds, soft to palpation and non-tender INSPECTION: Yes central obesity PALPATION: Yes soft Extremity: COMMON NORMALS: normal to inspection, full ROM and no clubbing, cyanosis or edema; negative for no pedal edema NARRATIVE EXTREMITY EXAM: -RLE: external fixator with pins in place, island dressing with some strikethrough in place Neuro: COMMON NORMALS: moves all extremities, no focal motor deficits and no sensory deficits noted GAIT: Yes other (NWB RLE) Psych: COMMON NORMALS: mental status grossly normal, cooperative, affect normal and speech normal SPEECH: Yes normal speech MOOD & AFFECT: Yes flat affect THOUGHT PROCESS: confused Skin: COMMON NORMALS: no rashes or lesions noted, no jaundice, no petechiae and no mottling GENERAL SKIN EXAM: no rashes or lesions noted Urinary Catheter Management^: Jacobo: Cath Placed During This Visit: yes, but has since been removed by the nurse Urethral Indwelling: Yes Reason for Continuing Indwelling Catheter: Required Immobilization for Trauma or Surgery or Anesthesia Urinary Catheter Date of Insertion: 06/16/19 Urinary Catheter Time of Insertion: 12:24 Date Urinary Catheter Removed: 06/22/19 Time Urinary Catheter Discontinued: 12:31 Data : 06/22/19 04:57 06/18/19 04:39 A&P Assessment and plan (1) Open right trimalleolar fracture: -secondary to fall while intoxicated -had open wound with contamination from fecal matter -Received a dose of tetanus post-op as not given in ER -fracture reduced in ED -Ortho consult by Dr. Kelley appreciated; POD # 7 s/p OR aggressive surgical debridement and irrigation, external fixator placement. Pin site care as outlined by Dr. Kelley -covered with Cefazolin ang-operatively; also got several doses of Zosyn secondary to fecal contamination for anaerobic coverage -pain control as needed -hypotension resolved and off pressor support and IV fluid hydration -VSS; continue to monitor vital signs -on cardiac diet -Jacobo catheter placed in ER; d/c today -Noted leukocytosis with neutrophilic predominance resolved -Chemistry, UA negative -imaging noted, none done for cervical spine -PT/OT evaluations appreciated -fall precautions -on oral pain meds to allow for decreased use of morphine -post-op anemia noted, s/p transfusion of 2 units PRBCs (06/18), Hg improved to 10.7. EBL-100 mL. -on bowel regimen Status: Acute Qualifiers: Encounter type: initial encounter Open fracture type: open type I or II Qualified Code(s): S82.851B - Displaced trimalleolar fracture of right lower leg, initial encounter for open fracture type I or II (2) Hypotension: -BP stable -off IVF hydration; off pressor support Status: Resolved Qualifiers: Hypotension type: other hypotension type Qualified Code(s): I95.89 - Other hypotension (3) Essential (primary) hypertension: -close monitoring of vital signs -off pressor support as needed to maintain MAP > 65; off IVF hydration -on oral antihypertensives Status: Chronic (4) Alcohol abuse: -Long history of documented chronic alcohol abuse; acutely intoxicated resulting in fall and subsequent right trimalleolar fracture -EtOH level-206 -with timeline since last drink, less likely to experience alcohol withdrawal -CIWA protocol, thiamine/MVI/folate daily -fall/seizure/aspiration precautions -1:1 monitoring no longer required as mental status improved Status: Chronic (5) CAD (coronary artery disease): -has known hx of CAD with prior stenting -on ASA, plavix, statin Status: Chronic Qualifiers: Associated angina: angina presence unspecified Coronary Disease-Associated Artery/Lesion type: [place] artery [place] vs. transplanted heart: [place] heart Qualified Code(s): I25.10 - Atherosclerotic heart disease of [place] coronary artery without angina pectoris (6) Morbid obesity: -BMI-52 kg/m2 Status: Chronic (7) Chronic obstructive pulmonary disease, unspecified: -no acute exacerbation -supplemental oxygen as needed -continue to monitor respiratory status Status: Chronic Qualifiers: COPD type: unspecified COPD Qualified Code(s): J44.9 - Chronic obstructive pulmonary disease, unspecified (8) Anxiety and depression: -on Ativan, hydroxyzine Status: Chronic (9) Osteoarthritis, chronic: Status: Chronic Additional A&P Information -Hyperlipidemia; on statin -Chronic smoker -GERD with recent EGD showing esophagitis and colonoscopy with polypectomy (adenomatous polyp) -GI ppx with PPI -DVT ppx with Lovenox post-op, with caution given bleeding initially and worsening anemia -Dispo: has been declined by local SNF facilities, alternative is home with home health. Anticipate discharge tomorrow. -Code status: FULL code Attestations Medical Necessity Statement*: Patient requires hospitalization for continued postop care including pain control, therapy; pending appropriate disposition. Time Spent in Patient Care: 16 - 35 minutes (>than 50% of time spent in counselling and/or direct pt care on unit). Coding Level of Care Code Acute Acid Mixer for Mikeángel Fwd Exam Comprehensive Diagnoses Open right trimalleolar fracture S82.851B Encounter type: initial encounter Open fracture type: open type I or II Hypotension I95.89 Hypotension type: other hypotension type Essential (primary) hypertension I10 Alcohol abuse F10.10 CAD (coronary artery disease) I25.10 Associated angina: angina presence unspecified Coronary Disease-Associated Artery/Lesion type: [place] artery [place] vs. transplanted heart: [place] heart Morbid obesity E66.01 Chronic obstructive pulmonary disease, unspecified J44.9 COPD type: unspecified COPD Anxiety and depression F41.9; F32.9 Osteoarthritis, chronic M19.90
--- NOTE | 2019-06-23 11:06 | PC.CHAP ---
Pastoral Care Encounter/Spiritual Assessment Type of Contact [] Declined chief engineer production visit [] Patient/Family/Request visit [] Outpatient visit [] Follow-up visit [] Physician referral [] Code/Alert [x] Routine visit [] Staff referral [] Actively dying [x] Patient sleeping [] Family support [] [] Out of room [] Palliative care [] [] Receiving care in room [] Pre-surgical visit [] Trauma [] Long length of stay [] ICU visit [] Other: Relational/Emotional Strength [] Patient feels connected with others/family/visitors/staff [] Distress [] Loneliness/isolation [] Abandonment Spirituality of Patient [] Person of Eveline [] Attends Jain of their Eveline [] Believes in Prayer [] Reads Bible or Cheondoism materials [] There are Spiritual issues to be addressed [employer] Supervisor Interventions [x] Prayer [] Active listening [] Non-anxious presence [] Spiritual/emotional support [] Crisis/trauma care [] Spiritual counseling [] Bereavement support [] Provided bereavement packet [] Provided Bible/devotional materials [] Provided toy/stuffed animal, coloring book to patient or family member [] Provided Communion [] Anointing/[place] [] Salvation [x] Completed spiritual assessment [] Other: Impact on Illness or Injury [] Angry [] Fearful [] Anxious [] Often cries [] Exhaustion [] Unable to work [] Unable to attend temple [] Unable to walk/stand [] Unable to read [] Unable to drive [] Unable to eat/drink [] Unable to sleep [] Unable to be with family [] Patient intubated [] Other: Summary Patient resting- [place] left [employer], cross and prayed Time spent with patient
[2019-06-23] MEDS: enoxaparin 40 mg/0.4 mL Syringe SUBCUT (12:17)
[2019-06-23] MEDS: acetaminophen 325 mg Tablet 650 MG PO (18:36)
[2019-06-24] VITALS (14 sets, daily range): BP systolic 110–144; BP diastolic 67–86; PULSE 58–72; RESP 16–20; TEMP 36.5–36.8; O2SAT 93–97
[2019-06-24] MEDS: oxyCODONE-APAP 5-325 mg Tablet 1 TAB PO ×4 (03:56→20:19)
[2019-06-24] MEDS: ondansetron 2 mg/ML SDV 2 mL 4 MG IVP (08:37)
[2019-06-24] MEDS: polyethylene glycol 3350 Pkt 17 gm PO (09:27)
[2019-06-24] MEDS: nicotine 14 mg Patch 1 PATCH TRANSDERMA (09:27)
[2019-06-24] MEDS: sennosides-docusate Tablet 2 TAB PO ×2 (09:28→17:47)
[2019-06-24] MEDS: CELEcoxib 200 mg Capsule PO ×2 (09:28→17:47)
[2019-06-24] MEDS: thiamine 100 mg Tablet PO (09:28)
[2019-06-24] MEDS: duloxetine 60 mg Capsule PO ×2 (09:28→17:47)
[2019-06-24] MEDS: FUROsemide 20 mg Tablet PO (09:28)
[2019-06-24] MEDS: clopidogrel 75 mg Tablet PO (09:28)
[2019-06-24] MEDS: cholecalciferol (vitamin D3) 5,000 unit Tablet 5000 UNIT PO (09:28)
[2019-06-24] MEDS: pantoprazole DR 40 mg Tablet PO (09:29)
[2019-06-24] MEDS: folic acid 1 mg Tablet PO (09:29)
[2019-06-24] MEDS: atorvastatin 40 mg Tablet 80 MG PO (09:29)
[2019-06-24] MEDS: carvedilol 25 mg Tablet PO ×2 (09:30→17:47)
[2019-06-24] MEDS: aspirin 81 mg Chew Tablet PO (09:30)
[2019-06-24] MEDS: multivitamin therapeutic Tablet 1 TAB PO (09:30)
--- NOTE | 2019-06-24 12:04 | PM.PN ---
Subjective Subjective: Interval history: POD # 8, working on disposition. VSS. Patient resting in bed, ambulated in the hallway with WC earlier this AM, RLE elevated on foot rest. Did well with therapy. Reports that friend has completed ramp for her to gain easier entry/exit at home. Seems to be in good spirits today. Medications: Reviewed: Yes Medication Review Details: Active Medications Generic Name Dose Route Start Last Admin Trade Name Freq PRN Reason Stop Dose Admin Acetaminophen 650 mg 06/17/19 14:18 06/23/19 18:36 Tylenol PO 650 mg Q6H PRN Administration Mild pain or feve r Albuterol Sulfate 2.5 mg 06/17/19 00:37 06/24/19 09:43 Albuterol INHALATION Not Given Q6H.RESPIRATORY S CH Aspirin 81 mg 06/17/19 09:00 06/24/19 09:30 Aspirin Chewable PO 81 mg DAILY DANYEL Administration Atorvastatin Calci um 80 mg 06/17/19 09:00 06/24/19 09:29 Lipitor PO 80 mg DAILY DANYEL Administration Budesonide 1 mg 06/17/19 08:00 06/24/19 09:43 Pulmicort INHALATION Not Given DAILY.RESPIRATORY DANYEL Carvedilol 25 mg 06/16/19 18:00 06/24/19 09:30 Coreg PO 25 mg BID DNAYEL Administration Celecoxib 200 mg 06/16/19 18:00 06/24/19 09:28 Celebrex PO 200 mg BID DANYEL Administration Clopidogrel Bisulf ate 75 mg 06/17/19 09:00 06/24/19 09:28 Plavix PO 75 mg DAILY DANYEL Administration Cyclobenzaprine HC l 10 mg 06/16/19 15:20 06/20/19 23:33 Flexeril PO 10 mg TID PRN Administration Muscle Spasm Enoxaparin Sodium 40 mg 06/17/19 12:00 06/23/19 12:17 Lovenox SUBCUT 40 mg Q24H DANYEL Administration Folic Acid 1 mg 06/17/19 09:00 06/24/19 09:29 Folic Acid PO 1 mg DAILY DANYEL Administration Furosemide 20 mg 06/17/19 09:00 06/24/19 09:28 Lasix PO 20 mg DAILY DANYEL Administration Hydroxyzine Pamoat e 25 mg 06/19/19 09:15 06/22/19 11:59 Vistaril PO 25 mg QID PRN Administration ANXIETY Lanolin 1 applic 06/16/19 18:32 Lanolin Oint TOPICAL PRN PRN DRYNESS Lorazepam 1 mg 06/22/19 12:15 06/23/19 20:35 Ativan PO 1 mg TID PRN Administration ANXIETY Meclizine HCl 25 mg 06/16/19 15:20 Antivert PO BID PRN nausea and vomiti ng Morphine Sulfate 2 mg 06/16/19 15:20 06/22/19 09:10 Morphine IVP 2 mg Q4H PRN Administration SEVERE PAIN Multivitamins Ther apeutic 1 tab 06/17/19 09:00 06/24/19 09:30 Multivitamin Tab PO 1 tab DAILY DANYEL Administration Neomycin/Polymyxin /Bacitracin 1 applic 06/20/19 12:15 06/22/19 16:53 Neosporin Oint T ube TOPICAL 1 applic PRN PRN Administration APPLY TO PINS AT DRESSING Nicotine 1 patch 06/18/19 14:15 06/24/19 09:27 Nicoderm 14 Mg P atch TRANSDERMA 1 patch DAILY DANYEL Administration Ondansetron HCl 4 mg 06/16/19 15:20 06/24/19 08:37 Zofran IVP 4 mg Q6H PRN Administration NAUSEA AND VOMITI NG Oxycodone/Acetamin ophen 1 tab 06/17/19 14:18 06/24/19 09:29 Percocet 5-325 M g PO 1 tab Q4H PRN Administration MODERATE PAIN Pantoprazole Sodiu m 40 mg 06/17/19 09:00 06/24/19 09:29 Protonix PO 40 mg DAILY DANYEL Administration Polyethylene Glyco l 17 gm 06/21/19 12:00 06/24/19 09:27 Miralax PO 17 gm DAILY DANYEL Administration Senna/Docusate Sod ium 2 tab 06/21/19 11:55 06/24/19 09:28 Senna-S PO 2 tab BID DANYEL Administration Thiamine Mononitra te 100 mg 06/17/19 09:00 06/24/19 09:28 Vitamin B-1 PO 100 mg DAILY DANYEL Administration Tramadol HCl 50 mg 06/17/19 14:18 06/21/19 23:17 Ultram PO 50 mg Q4H PRN Administration BREAKTHROUGH PAIN Vitamin D 5,000 unit 06/17/19 09:00 06/24/19 09:28 Vitamin D3 PO 5,000 unit DAILY DANYEL Administration ciprofloxacin Adverse Reaction (Unknown, Verified 04/14/19 11:35) ADR-Swelling of the Eye doxycycline Adverse Reaction (Unknown, Verified 04/14/19 11:36) ADR-Vomiting Vitals/I&O/Wt Last Vital Signs Temp 97.9 F 06/24/19 11:35 Pulse 58 L 06/24/19 11:35 Resp 20 H 06/24/19 11:35 BP 110/71 06/24/19 11:35 Pulse Ox 96 06/24/19 11:35 06/23/19 06/24/19 06/24/19 22:59 06:59 14:59 Intake Total 240 / 530 240 / 770 240 / 240 Output Total 100 / 525 200 / 725 Balance 140 / 5 40 / 45 240 / 240 Weight last 48 hrs Weight 132.131 kg Physical Exam Const: COMMON NORMALS: no apparent distress GENERAL APPEARANCE: cooperative and comfortable NUTRITIONAL APPEARANCE: obese morbidly obese OTHER: -sitting up in bed HENMT: COMMON NORMALS: normocephalic, head/scalp atraumatic and hearing grossly normal bilaterally HEAD & SCALP: normocephalic and atraumatic MOUTH: moist mucous membranes abnormal Details: parched Eye: COMMON NORMALS: PERRL, EOMs intact bilaterally and conjunctivae normal CONJUNCTIVA: Yes conjunctivae normal PUPIL: Yes PERRL Neck/C-Spine: COMMON NORMALS: full ROM GENERAL: Yes normal visual inspection and Yes trachea midline Chest: COMMONS NORMALS: inspection of chest normal Resp: COMMON NORMALS: normal respiratory effort, no retractions and no use of accessory muscles EFFORT & INSPECTION: Yes able to speak in complete sentences and Yes symmetric chest movement AUSCULTATION: diminished lung sounds Cardio: COMMON NORMALS: regular rate, regular rhythm, S1 normal heart sound, S2 normal heart sound and no murmurs RATE: regular rate RHYTHM: regular rhythm HEART SOUNDS: S1 normal and S2 normal GI: COMMON NORMALS: normal to inspection, nondistended, normoactive bowel sounds, soft to palpation and non-tender INSPECTION: Yes central obesity PALPATION: Yes soft : BLADDER/KIDNEY EXAM: Yes catheter in place Catheter type (Female): urethral Extremity: COMMON NORMALS: normal to inspection, full ROM and no clubbing, cyanosis or edema; negative for no pedal edema NARRATIVE EXTREMITY EXAM: -RLE: external fixator with pins in place, island dressing with some strikethrough in place Neuro: COMMON NORMALS: moves all extremities, no focal motor deficits and no sensory deficits noted GAIT: Yes other (NWB RLE) Psych: COMMON NORMALS: mental status grossly normal, cooperative, affect normal and speech normal SPEECH: Yes normal speech MOOD & AFFECT: Yes flat affect THOUGHT PROCESS: confused Skin: COMMON NORMALS: no rashes or lesions noted, no jaundice, no petechiae and no mottling GENERAL SKIN EXAM: no rashes or lesions noted Urinary Catheter Management^: Jacobo: Cath Placed During This Visit: yes, but has since been removed by the nurse Urethral Indwelling: Yes Reason for Continuing Indwelling Catheter: Required Immobilization for Trauma or Surgery or Anesthesia Urinary Catheter Date of Insertion: 06/16/19 Urinary Catheter Time of Insertion: 12:24 Date Urinary Catheter Removed: 06/22/19 Time Urinary Catheter Discontinued: 12:31 Data : 06/22/19 04:57 06/18/19 04:39 A&P Assessment and plan (1) Open right trimalleolar fracture: -secondary to fall while intoxicated -had open wound with contamination from fecal matter -Received a dose of tetanus post-op as not given in ER -fracture reduced in ED -Ortho consult by Dr. Kelley appreciated; POD # 8 s/p OR aggressive surgical debridement and irrigation, external fixator placement. Pin site care as outlined by Dr. Kelley -covered with Cefazolin ang-operatively; also got several doses of Zosyn secondary to fecal contamination for anaerobic coverage -pain control as needed -hypotension resolved and off pressor support and IV fluid hydration -VSS; continue to monitor vital signs -on cardiac diet -Jacobo catheter placed in ER; d/c and has been voiding without difficulty -Noted leukocytosis with neutrophilic predominance resolved -Chemistry, UA negative -imaging noted, none done for cervical spine -PT/OT evaluations appreciated -fall precautions -on oral pain meds to allow for decreased use of morphine -post-op anemia noted, s/p transfusion of 2 units PRBCs (06/18), Hg improved to 10.7. EBL-100 mL. -on bowel regimen -NWB on RLE Status: Acute Qualifiers: Encounter type: initial encounter Open fracture type: open type I or II Qualified Code(s): S82.851B - Displaced trimalleolar fracture of right lower leg, initial encounter for open fracture type I or II (2) Essential (primary) hypertension: -close monitoring of vital signs -off pressor support as needed to maintain MAP > 65; off IVF hydration -on oral antihypertensives Status: Chronic (3) Alcohol abuse: -Long history of documented chronic alcohol abuse; acutely intoxicated resulting in fall and subsequent right trimalleolar fracture -EtOH level-206 -with timeline since last drink, less likely to experience alcohol withdrawal -CIWA protocol, thiamine/MVI/folate daily -fall/seizure/aspiration precautions -1:1 monitoring no longer required as mental status improved Status: Chronic (4) CAD (coronary artery disease): -has known hx of CAD with prior stenting -on ASA, plavix, statin Status: Chronic Qualifiers: Associated angina: angina presence unspecified Coronary Disease-Associated Artery/Lesion type: [place] artery [place] vs. transplanted heart: [place] heart Qualified Code(s): I25.10 - Atherosclerotic heart disease of [place] coronary artery without angina pectoris (5) Morbid obesity: -BMI-52 kg/m2 Status: Chronic (6) Chronic obstructive pulmonary disease, unspecified: -no acute exacerbation -supplemental oxygen as needed -continue to monitor respiratory status Status: Chronic Qualifiers: COPD type: unspecified COPD Qualified Code(s): J44.9 - Chronic obstructive pulmonary disease, unspecified (7) Anxiety and depression: -on Ativan, hydroxyzine Status: Chronic (8) Osteoarthritis, chronic: Status: Chronic Additional A&P Information -Hyperlipidemia; on statin -Chronic smoker -GERD with recent EGD showing esophagitis and colonoscopy with polypectomy (adenomatous polyp) -GI ppx with PPI -DVT ppx with Lovenox post-op, with caution given bleeding initially and worsening anemia -Dispo: has been declined by local SNF facilities, alternative is home with home health. Anticipate discharge tomorrow. Ordered bedside commode and WC with bilateral foot rests as patient is NWB on RLE with associated risk of fall; she cannot ambulate with walker or cane safely with RLE being non weight bearing and having external fixator in place -Code status: FULL code Attestations Medical Necessity Statement*: Patient requires hospitalization for continued post op care pending appropriate disposition and DME. Time Spent in Patient Care: 16 - 35 minutes (>than 50% of time spent in counselling and/or direct pt care on unit). Coding Level of Care Code Acute Chief Information Security Officer for g Fwd Exam Comprehensive Diagnoses Open right trimalleolar fracture S82.851B Encounter type: initial encounter Open fracture type: open type I or II Essential (primary) hypertension I10 Alcohol abuse F10.10 CAD (coronary artery disease) I25.10 Associated angina: angina presence unspecified Coronary Disease-Associated Artery/Lesion type: [place] artery [place] vs. transplanted heart: [place] heart Morbid obesity E66.01 Chronic obstructive pulmonary disease, unspecified J44.9 COPD type: unspecified COPD Anxiety and depression F41.9; F32.9 Osteoarthritis, chronic M19.90
[2019-06-24] MEDS: enoxaparin 40 mg/0.4 mL Syringe SUBCUT (14:14)
[2019-06-24] MEDS: LORazepam 1 mg Tablet PO (20:18)
[2019-06-25] VITALS (10 sets, daily range): BP systolic 104–116; BP diastolic 68–79; PULSE 58–67; RESP 16–20; TEMP 36.6; O2SAT 92–98
[2019-06-25] MEDS: oxyCODONE-APAP 5-325 mg Tablet 1 TAB PO ×2 (00:12→08:44)
[2019-06-25] MEDS: TRAMadol 50 mg Tablet PO (02:09)
--- NOTE | 2019-06-25 08:10 | PM.DCS ---
Discharge Providers Date of Admission: 06/16/19 15:17 Date of Discharge: June 25, 2019 Attending Provider at Admission: Romeo Kelley MD Attending Provider at Discharge: Amanda Johnson MD Primary Care Provider: ISABELLE Browne Diagnoses at Discharge Discharge Diagnosis (1) Open right trimalleolar fracture: Status: Acute Problem details: -secondary to fall while intoxicated -had open wound with contamination from fecal matter -Received a dose of tetanus post-op as not given in ER -fracture reduced in ED -Ortho consult by Dr. Kelley appreciated; POD # 9 s/p OR aggressive surgical debridement and irrigation, external fixator placement. Pin site care as outlined by Dr. Kelley -covered with Cefazolin ang-operatively; also got several doses of Zosyn secondary to fecal contamination for anaerobic coverage -pain control as needed -hypotension resolved and off pressor support and IV fluid hydration -VSS; continue to monitor vital signs -on cardiac diet -Jacobo catheter placed in ER; d/c and has been voiding without difficulty -Noted leukocytosis with neutrophilic predominance resolved -Chemistry, UA negative -imaging noted, none done for cervical spine -PT/OT evaluations appreciated -fall precautions -on oral pain meds to allow for decreased use of morphine -post-op anemia noted, s/p transfusion of 2 units PRBCs (06/18), Hg improved to 10.7. EBL-100 mL. -on bowel regimen -NWB on RLE Qualifiers: Encounter type: initial encounter Open fracture type: open type I or II Qualified Code(s): S82.851B - Displaced trimalleolar fracture of right lower leg, initial encounter for open fracture type I or II (2) Essential (primary) hypertension: Status: Chronic Problem details: -close monitoring of vital signs -off pressor support as needed to maintain MAP > 65; off IVF hydration -on oral antihypertensives (3) Alcohol abuse: Status: Chronic Problem details: -Long history of documented chronic alcohol abuse; acutely intoxicated resulting in fall and subsequent right trimalleolar fracture -EtOH level-206 -with timeline since last drink, less likely to experience alcohol withdrawal -CIWA protocol, thiamine/MVI/folate daily -fall/seizure/aspiration precautions -1:1 monitoring no longer required as mental status improved (4) CAD (coronary artery disease): Status: Chronic Problem details: -has known hx of CAD with prior stenting -on ASA, plavix, statin Qualifiers: Coronary Disease-Associated Artery/Lesion type: [place] artery [place] vs. transplanted heart: ass[place]ine and sioux heart Associated angina: angina presence unspecified Qualified Code(s): I25.10 - Atherosclerotic heart disease of [place] and sioux coronary artery without angina pectoris (5) Morbid obesity: Status: Chronic Problem details: -BMI-52 kg/m2 (6) Chronic obstructive pulmonary disease, unspecified: Status: Chronic Problem details: -no acute exacerbation -supplemental oxygen as needed -continue to monitor respiratory status Qualifiers: COPD type: unspecified COPD Qualified Code(s): J44.9 - Chronic obstructive pulmonary disease, unspecified (7) Anxiety and depression: Status: Chronic Problem details: -on Ativan, hydroxyzine (8) Osteoarthritis, chronic: Status: Chronic Other Information Additional DC diagnoses/information: -Hyperlipidemia; on statin -Chronic smoker -GERD with recent EGD showing esophagitis and colonoscopy with polypectomy (adenomatous polyp) Reason for Visit Reason for Visit: Reason For Visit: Fall, alcohol intoxication Hospital Course Hospital Course: Patient was taken to the OR directly from the ER to have aggressive irrigation and debridement as well as external fixator placement secondary to open right trimalleolar fracture with noted fecal contamination. She was covered with empiric antibiotic therapy including Zosyn and received tetanus shot. She was then admitted to the ICU due to high risk for alcohol withdrawal as patient was acutely intoxicated when she fell and broke her ankle. She required aggressive CIWA protocol for the first 24 to 72 hours and so remained in ICU. Therapy was quite limited within this timeframe as patient was quite somnolent. With time her mentation improved and she began to have her therapy sessions. Patient has been and will continue to be non-weightbearing on the right for which she will require wheelchair for ambulation and safety. Once outside the withdrawal window she was transferred to the medical surgical floor for continued post-surgical care. She she was noted to be hypotensive and did require pressor support and IV fluid hydration while in ICU for hemodynamic support. This was weaned off and she has remained hemodynamically stable. She had a Jacobo catheter in ED which has since been removed and she has been able to void independently without difficulty. Initial plan was to discharge to SNF secondary to patient's limited mobility and minimal assistance available at home. However this did not work out and patient will be discharged home with home health and appropriate DME including bedside commode and wheelchair with elevated leg rests as she cannot use a cane, walker or crutches safely with her non-weightbearing status. She will need to follow-up with orthopedics as well as with her primary care provider. She has been counseled extensively on need for alcohol cessation. She has also been instructed on appropriate pin care and dressing changes. Of note patient was covered with Lovenox as DVT prophylaxis during her hospitalization. Patient is already on aspirin and Plavix at baseline and did have bleeding following her injury and surgery with noted postop anemia requiring transfusion of 2 units of PRBCs. Subsequent hemoglobin has been stable. However patient remains at higher than average risk for possible VTE as she is morbidly obese, chronic smoker and alcoholic, and is to be non-weightbearing for quite some time therefore I will discontinue her dual antiplatelet therapy and initiate rivaroxaban 10 mg daily for continued DVT prophylaxis. I have also discontinued NSAID therapy. She will need to have continued follow-up of her hemoglobin while on anticoagulation. Discharge Summary: -Patient to follow-up with her primary care provider within 1 week -Patient to follow-up with orthopedics Dr. Kelley in 1 week Physical Exam Const: COMMON NORMALS: no apparent distress GENERAL APPEARANCE: cooperative and comfortable NUTRITIONAL APPEARANCE: obese morbidly obese OTHER: -sitting up in bed HENMT: COMMON NORMALS: normocephalic, head/scalp atraumatic and hearing grossly normal bilaterally HEAD & SCALP: normocephalic and atraumatic MOUTH: moist mucous membranes abnormal Details: parched Eye: COMMON NORMALS: PERRL, EOMs intact bilaterally and conjunctivae normal CONJUNCTIVA: Yes conjunctivae normal PUPIL: Yes PERRL Neck/C-Spine: COMMON NORMALS: full ROM GENERAL: Yes normal visual inspection and Yes trachea midline Chest: COMMONS NORMALS: inspection of chest normal Resp: COMMON NORMALS: normal respiratory effort, no retractions and no use of accessory muscles EFFORT & INSPECTION: Yes able to speak in complete sentences and Yes symmetric chest movement AUSCULTATION: diminished lung sounds Cardio: COMMON NORMALS: regular rate, regular rhythm, S1 normal heart sound, S2 normal heart sound and no murmurs RATE: regular rate RHYTHM: regular rhythm HEART SOUNDS: S1 normal and S2 normal GI: COMMON NORMALS: normal to inspection, nondistended, normoactive bowel sounds, soft to palpation and non-tender INSPECTION: Yes central obesity PALPATION: Yes soft : BLADDER/KIDNEY EXAM: Yes catheter in place Catheter type (Female): urethral Extremity: COMMON NORMALS: normal to inspection, full ROM and no clubbing, cyanosis or edema; negative for no pedal edema NARRATIVE EXTREMITY EXAM: -RLE: external fixator with pins in place, island dressing with some strikethrough in place Neuro: COMMON NORMALS: moves all extremities, no focal motor deficits and no sensory deficits noted GAIT: Yes other (NWB RLE) Psych: COMMON NORMALS: mental status grossly normal, cooperative, affect normal and speech normal SPEECH: Yes normal speech MOOD & AFFECT: Yes flat affect THOUGHT PROCESS: confused Skin: COMMON NORMALS: no rashes or lesions noted, no jaundice, no petechiae and no mottling GENERAL SKIN EXAM: no rashes or lesions noted Urinary Catheter Management^: Jacobo: Cath Placed During This Visit: yes, but has since been removed by the nurse Urethral Indwelling: Yes Reason for Continuing Indwelling Catheter: Required Immobilization for Trauma or Surgery or Anesthesia Urinary Catheter Date of Insertion: 06/16/19 Urinary Catheter Time of Insertion: 12:24 Date Urinary Catheter Removed: 06/22/19 Time Urinary Catheter Discontinued: 12:31 Discharge Data Data Completed and Pending: Completed Studies During Hospitalization Category Date Time Status XR ankle RT 1V 73 [id number] Stat Exams 06/16/19 11:47 Completed XR ankle RT 1V 73 [id number] Stat Exams 06/16/19 12:39 Completed XR ankle RT 2V 73 600 Urgent Exams 06/16/19 Completed XR ankle RT min 3 V* [id number] Stat Exams 06/16/19 12:39 Completed Vitals: Last Vital Signs Temp 97.9 F 06/25/19 04:00 Pulse 67 06/25/19 04:00 Resp 18 06/25/19 04:00 BP 109/71 06/25/19 04:00 Pulse Ox 92 06/25/19 04:00 Discharge Plan Discharge Patient Disposition: Home Health Service Condition: Stable Prescriptions: New Triple Antibiotic 3.5mg-400 unit- 5,000 unit/gram Ointment 1 applic topical PRN PRN (Reason: APPLY TO PINS AT DRESSING) Qty: 30 RF: 0 Miralax 17 gram Powder In Packet 17 g PO DAILY Qty: 30 RF: 0 sennosides-docusate sodium 8.6-50 mg Tablet 2 tab PO BID Qty: 120 RF: 0 tramadol 50 mg Tablet 50 mg PO Q4H PRN (Reason: Breakthrough Pain, Mild) Qty: 30 RF: 0 oxycodone-acetaminophen 5-325 mg Tablet 1 tab PO Q4H PRN (Reason: Moderate Pain) Qty: 30 RF: 0 rivaroxaban 10 mg tablet 10 mg PO DAILY Qty: 30 RF: 0 Continued cyclobenzaprine 10 mg tablet 10 mg PO TID PRN (Reason: Muscle Spasm) Qty: 30 RF: 0 carvedilol 25 mg tablet 25 mg PO BID Qty: 60 RF: 0 albuterol sulfate 2.5 mg /3 mL (0.083 %) solution for nebulization 2.5 mg INHALATION Q6H Qty: 30 RF: 0 hydroxyzine pamoate 50 mg capsule 50 mg PO BID PRN (Reason: Anxiety) Qty: 60 RF: 0 meclizine 25 mg tablet 25 mg PO BID PRN (Reason: Dizziness Or Vertigo) Qty: 30 RF: 0 Protonix 40 mg tablet,delayed release (DR/EC) 40 mg PO DAILY 30 Days Qty: 30 RF: 0 Lasix 20 mg tablet 20 mg PO DAILY Qty: 30 RF: 2 lorazepam 1 mg tablet 1 mg PO QPM Qty: 30 RF: 0 duloxetine 60 mg capsule,delayed release(DR/EC) 60 mg PO BID Qty: 60 RF: 0 B Complex Plus Vitamin C 14-41-61-5-300 mg capsule 1 cap PO DAILY Qty: 30 RF: 0 Pulmicort 1 mg/2 mL suspension for nebulization 1 mg INHALATION BID Qty: 60 RF: 2 Vitamin D3 125 mcg (5,000 unit) Tablet 5,000 unit PO DAILY Qty: 30 RF: 0 Changed rosuvastatin 40 mg tablet 40 mg PO BEDTIME Qty: 30 RF: 0 Discontinued gabapentin 300 mg capsule See Rx Instructions .ROUTE .COMPLEX Qty: 120 RF: 2 lisinopril 40 mg tablet 40 mg PO DAILY Qty: 30 RF: 2 Plavix 75 mg tablet 75 mg PO DAILY Qty: 30 RF: 11 aspirin 81 mg Tablet,Chewable 81 mg PO DAILY RF: 0 celecoxib [Celebrex] 200 mg Capsule 200 mg PO BID RF: 0 hydrochlorothiazide 12.5 mg Tablet 12.5 mg PO DAILY RF: 0 Discharge Orders: Discharge Order (Routine); Ordered 06/25/19 Ordered By: Amanda Johnson Other Ambulatory Orders: DME: Commode (Order) Location: None Selected Ordered By: Amanda Johnson DME: Wheelchair (Order) Location: None Selected Ordered By: Amanda Johnson DME: Wheelchair (Order) Location: None Selected Ordered By: Amanda Johnson Referrals: Jadiel Munoz FNP-C [Primary Care Provider] - 4-7 days (Please call Wednesday to set up a post hospital discharge follow up; had R open trimalleolar fracture s/p debridement with external fixator placement. ) Romeo Kelley MD [Physician] - 1 week (Please call Wednesday to set up a post hospital discharge follow up. ) Discharge Diet: Cardiac Discharge Activity: As per PT/OT instructions Patient Instructions: Alcohol Abuse, Oxycodone, Rapid Release (By mouth), Tramadol (By mouth), Ankle Fracture (GEN), External Fixation of an Ankle Fracture (GEN) Activity Restrictions/Additional Instructions: -Please continue fall precautions Discharge Attestations Time Spent in Discharge Care*: greater than 30 min Specific Discharge Activities: Specific discharge activities: educating patient, discussing with family preservation caseworker/social workers/dc planners, documenting/other paperwork and evaluating patient/reviewing data Status at Discharge: Cognitive status at discharge: cognitively intact, Behavioral status at discharge: cooperative, Functional status at discharge: wheelchair bound (non weight bearing on R) Overall status at discharge: patient has a new baseline Quality Metrics Clinical Quality Measures During this hospital stay, did patient experience: None Coding Level of Care Code 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 transplanted heart: [place] and [place] heart Associated angina: angina presence unspecified Morbid obesity E66.01 Chronic obstructive pulmonary disease, unspecified J44.9 COPD type: unspecified COPD Anxiety and depression F41.9; F32.9 Osteoarthritis, chronic M19.90
[2019-06-25] MEDS: CELEcoxib 200 mg Capsule PO (08:39)
[2019-06-25] MEDS: FUROsemide 20 mg Tablet PO (08:39)
[2019-06-25] MEDS: multivitamin therapeutic Tablet 1 TAB PO (08:40)
[2019-06-25] MEDS: folic acid 1 mg Tablet PO (08:40)
[2019-06-25] MEDS: cholecalciferol (vitamin D3) 5,000 unit Tablet 5000 UNIT PO (08:40)
[2019-06-25] MEDS: aspirin 81 mg Chew Tablet PO (08:40)
[2019-06-25] MEDS: atorvastatin 40 mg Tablet 80 MG PO (08:40)
[2019-06-25] MEDS: pantoprazole DR 40 mg Tablet PO (08:40)
[2019-06-25] MEDS: duloxetine 60 mg Capsule PO (08:40)
[2019-06-25] MEDS: carvedilol 25 mg Tablet PO (08:40)
[2019-06-25] MEDS: thiamine 100 mg Tablet PO (08:40)
[2019-06-25] MEDS: clopidogrel 75 mg Tablet PO (08:40)
[2019-06-25] MEDS: nicotine 14 mg Patch 1 PATCH TRANSDERMA (08:43)
[2019-06-25] MEDS: budesonide 0.5 mg/2 mL Neb 1 MG INHALATION (08:52)
== END 2019-06-25 12:58 | disposition home health service (06) | DRG 493 ==
LOC: ER 11:51 → ICU 15:18 → MEDSURG 06-20 13:14
PROVIDERS: Admitting Provider Orthopaedic Surgery; Emergency Provider Family Medicine; Family Provider Nurse Practitioner; PCP Nurse Practitioner; Visit Provider Family Medicine
PROC: 0QHG35Z Insertion of External Fixation Device into Right Tibia, Percutaneous Approach (ICD-10-PCS; principal; 2019-06-16 13:00)
PROC: 0QHG35Z Insertion of External Fixation Device into Right Tibia, Percutaneous Approach (ICD-10-PCS; 2019-06-16 13:00)
DX: S82.851B Displaced trimalleolar fracture of right lower leg, initial encounter for open fracture type I or II (principal); Z68.43 Body mass index [BMI] 50.0-59.9, adult; D62 Acute posthemorrhagic anemia; W18.30XA Fall on same level, unspecified, initial encounter; Y93.9 Activity, unspecified; F10.129 Alcohol abuse with intoxication, unspecified; Y90.7 Blood alcohol level of 200-239 mg/100 ml; Z96.643 Presence of artificial hip joint, bilateral; F41.8 Other specified anxiety disorders; J44.9 Chronic obstructive pulmonary disease, unspecified; I10 Essential (primary) hypertension; M54.16 Radiculopathy, lumbar region; E78.2 Mixed hyperlipidemia; M19.90 Unspecified osteoarthritis, unspecified site; E55.9 Vitamin D deficiency, unspecified; I25.10 Atherosclerotic heart disease of native coronary artery without angina pectoris; Z95.5 Presence of coronary angioplasty implant and graft; Z98.84 Bariatric surgery status; I95.2 Hypotension due to drugs; T42.75XA Adverse effect of unspecified antiepileptic and sedative-hypnotic drugs, initial encounter; F17.210 Nicotine dependence, cigarettes, uncomplicated; E66.01 Morbid (severe) obesity due to excess calories; K21.9 Gastro-esophageal reflux disease without esophagitis
CPT/HCPCS: 12345; 36415; 36416; 36430; 51702; 73600; 73610; 76000; 80048; 80053; 80306; 80307; 81001; 82962; 85014; 85018; 85025; 85610; 85730; 86850; 86900; 86920; 90471; 90714; 94640; 96372; 96374; 96375; 97110; 97161; 97166; 97530; 97535; 99283; 99284; 99285; C1713; J0330; J0690; J1644; J1650; J2001; J2060; J2250; J2270; J2405; J2543; J3010; J3490; J7030; J7611; J7626; P9016; S0030

== ENCOUNTER 2019-07-06 15:00 | Emergency (ER) | payer MEDICAID, SELFPAY | END 2019-07-06 17:25 | disposition admitted as inpatient to this hospital (09) | LOC: ER 07-12 13:05 | PROVIDERS: Emergency Provider Family Medicine; PCP Nurse Practitioner | DX: T81.49XA Infection following a procedure, other surgical site, initial encounter (principal); L02.415 Cutaneous abscess of right lower limb; I10 Essential (primary) hypertension; J44.9 Chronic obstructive pulmonary disease, unspecified; F10.10 Alcohol abuse, uncomplicated; I25.10 Atherosclerotic heart disease of native coronary artery without angina pectoris; E66.01 Morbid (severe) obesity due to excess calories; S82.851B Displaced trimalleolar fracture of right lower leg, initial encounter for open fracture type I or II; E78.2 Mixed hyperlipidemia; F17.210 Nicotine dependence, cigarettes, uncomplicated; X58.XXXA Exposure to other specified factors, initial encounter | CPT/HCPCS: 73610; 73630; 85025; 99282; 99285 ==

== ENCOUNTER 2019-07-06 15:00 | Inpatient (IN) | payer MEDICAID, SELFPAY ==
[2019-07-06] VITALS (8 sets, daily range): BP systolic 128–143; BP diastolic 76–83; PULSE 76–89; RESP 16–18; TEMP 36.8–37.2; O2SAT 94–98; BMI 44.1
--- NOTE | 2019-07-06 15:21 | XR_ITS ---
WS: [id number] XR ankle RT min 3V* [id number] REASON FOR EXAM: Compound fracture was infection FINDINGS: Widening of the ankle mortise is seen no healing of the fracture of the medial malleolus ar e the spiral fracture of the fibula is seen. Fracture the posterior shelf the tibia is also seen. The fracture components all show a hypodense configuration suspicious of infection and osteomyelitis. Co mparisons were made to a previous exam of June 16, 2019 IMPRESSION: Unstable trimalleolar fracture of the right ankle traction device in position the bony fragment sugg esting inflammatory bone disease.
--- NOTE | 2019-07-06 15:21 | XR_ITS ---
WS: [id number] XR foot RT min 3V* [id number] REASON FOR EXAM: Recent fracture was infection FINDINGS: Bone traction device is seen through the ankle area. The fractures and osteomyelitis change s of the tibia and questionably the fibula are seen. The remaining phalanges metatarsals and tarsals are essentially normal. There is appears to be a frac ture through the medial aspect of the tarsal navicular. XR/XR foot RT min 3V* [id number] IMPRESSION: Bone traction changes are identified. A fracture through the tarsal navicular.
--- NOTE | 2019-07-06 15:29 | W.ED.WOUNDLC ---
HPI - Wound/Laceration General: Chief Complaint: Wound/Laceration Stated Complaint: INFECTED SURGICAL SITE Time Seen by Provider: 07/06/19 15:20 History of Present Illness: HPI narrative: 59-year-old female presents emergency room for admission. She was seen on 05/16/2019 for a compound fracture of the right ankle was reduced in the ER and then she was admitted for ORIF. This was associated with heavy drinking. She states since then she is cut down her drinking and only has 3 mixed drinks per night. Today she is seen Dr. Kelley for wound care for follow-up and was found to have what appeared to be an infected draining wound and she was sent to the emergency room for admission. She denies recent illness fever or respiratory symptoms. She is upset because of the readmission here. Onset (ago): week(s) Extremity Location: Right: ankle Place: home Associated symptoms: Denies chills, fever(s), nausea or vomiting Review of Systems Const: Denies: fever, chills, body aches, change in appetite, fatigue or malaise ENMT: Denies: throat pain, ear pain, nasal discharge or nasal congestion Card: Denies: chest pain, edema, shortness of breath on exertion or shortness of breath when lying down Resp: Denies: shortness of breath, productive cough or non-productive cough GI: Denies: abdominal pain, nausea, vomiting, vomiting blood, coffee grounds in vomit, diarrhea, constipation, bloating, blood in stool or black tarry stool : Denies: flank pain, difficulty urinating, painful urination, urinary frequency or urinary urgency Skin/Breast: Denies: rash or itching [facility] ED PFSH: Medical History (Updated 07/07/19 @ 14:07 by Cristo Jenkins DO) Alcohol abuse -Long history of documented chronic alcohol abuse; acutely intoxicated resulting in fall and subsequent right trimalleolar fracture -EtOH level-206 -with timeline since last drink, less likely to experience alcohol withdrawal -CIWA protocol, thiamine/MVI/folate daily -fall/seizure/aspiration precautions -1:1 monitoring no longer required as mental status improved Anxiety and depression -on Ativan, hydroxyzine CAD (coronary artery disease) -has known hx of CAD with prior stenting -on ASA, plavix, statin Chronic obstructive pulmonary disease, unspecified -no acute exacerbation -supplemental oxygen as needed -continue to monitor respiratory status Essential (primary) hypertension -close monitoring of vital signs -off pressor support as needed to maintain MAP > 65; off IVF hydration -on oral antihypertensives Hyperglycemia Intervertebral disc disorder with radiculopathy of lumbar region Mixed hyperlipidemia Morbid obesity -BMI-52 kg/m2 Osteoarthritis, chronic Vitamin D deficiency Surgical History H/O esophagogastroduodenoscopy 05/04/2019: Status post gastric bypass with grade B esophagitis History of 2 sections History of cholecystectomy History of coronary artery stent placement History of gastric bypass History of hysterectomy History of left hip replacement History of right hip replacement Status post colonoscopy with polypectomy 05/04/2019: Descending colon polyp Social History Smoking and tobacco status: current every day smoker cigarettes Packs smoked per day: 0.5 Second hand smoke exposure: Yes Smoking risk assessment/counseling performed?: Yes Alcohol intake: current Alcohol intake frequency: 3 or more drinks per day Alcohol type: hard liquor Last alcohol use date: 06/16/19 Caregiver/support person: No Lives independently: Yes Household members: significant other Marital status: Single Number of children: 3 service: No Current occupational status: unemployed History of recent travel: No Current gender identity: Female Physical Exam Const: COMMON NORMALS: no apparent distress GENERAL APPEARANCE: cooperative and comfortable ORIENTATION/CONSCIOUSNESS: Yes awake, Yes oriented to person, Yes oriented to place and Yes oriented to time HENMT: COMMON NORMALS: normocephalic, head/scalp atraumatic, hearing grossly normal bilaterally, external ears normal, EAC's normal, TM's normal bilaterally, nasal mucous membranes and turbinates normal, moist oral mucous membranes and oropharynx normal HEAD & SCALP: normocephalic and atraumatic NOSE: nasal mucous membranes and turbinates normal EXTERNAL EAR: Yes external ears normal EXTERNAL AUDITORY CANAL: EAC's normal TYMPANIC MEMBRANE: TM's normal bilaterally Eye: COMMON NORMALS: PERRL, EOMs intact bilaterally, conjunctivae normal and no scleral icterus CONJUNCTIVA: Yes conjunctivae normal PUPIL: Yes PERRL Neck/C-Spine: COMMON NORMALS: full ROM, no lymphadenopathy, supple and no JVD Lymph: LYMPHATIC: no lymphadenopathy noted and no lymphedema noted Resp: COMMON NORMALS: normal respiratory effort, no retractions, no use of accessory muscles and clear to auscultation bilaterally AUSCULTATION: clear to auscultation bilaterally Cardio: COMMON NORMALS: no JVD, regular rate, regular rhythm and no murmurs RATE: regular rate RHYTHM: regular rhythm GI: COMMON NORMALS: soft to palpation and no hepatosplenomegaly AUSCULTATION: Yes normoactive bowel sounds PALPATION: Yes soft, No tender, No guarding and Yes no hepatosplenomegaly Extremity: NARRATIVE EXTREMITY EXAM: External fixators in place on the right ankle there is Curlex around the incision this was not removed as Dr. Kelley had seen earlier today and assessed that. There is no evidence of active drainage at this time Neuro: SENSORIUM/ORIENTATION: Yes oriented to person, Yes oriented to place and Yes oriented to time Skin: COMMON NORMALS: no rashes or lesions noted GENERAL SKIN EXAM: no rashes or lesions noted Course Vital Signs: Vital signs: Vital Signs Temperature 98.4 F 07/07/19 13:40 Pulse Rate 79 07/07/19 13:40 Respiratory Rate 18 07/07/19 13:40 Blood Pressure 91/57 07/07/19 13:40 Pulse Oximetry 94 07/07/19 13:40 MDM - Wound/Laceration MDM Narrative: Medical decision making narrative: Discussed with Dr. Vallecillo will go ahead and admit the patient also notify Dr. Kelley that she is being admitted to the hospitalist service evidently the plan is for her to be taken back to surgery tomorrow morning for debridement. Discharge Plan Discharge Patient Disposition: Admitted As Inpatient Admit Provider: Luis Daniel Walsh Clinical Impression: Open right trimalleolar fracture, Abscess, Essential (primary) hypertension, Chronic obstructive pulmonary disease, unspecified, Alcohol abuse, CAD (coronary artery disease), Morbid obesity Condition: Stable Interventions: ED Discharge Assessment Last Done: 07/06/19 17:08 ED Charges Last Done: 07/06/19 17:08 Discharge Date/Time: 07/06/19 17:25 Coding Level of Care Code ED Metal Stamper for Chg Fwd Exam Comprehensive
--- NOTE | 2019-07-06 16:04 | PM.HP ---
Providers/Chief Complaint Primary Care Provider: WAN Browne-C Chief Complaint: right leg pain/infection History of Present Illness Zenaida Madsen is a 59 year old female with a past medical history of CAD status post [id number]-yrsegup stent placement to proximal RCA, balloon angioplasty of ostial obtuse marginal on April 2017, alcohol dependence, anxiety depression, COPD, hypertension, hyperglycemia, morbid obesity, hyperlipidemia, vitamin D deficiency, intervertebral disc disorder, recent history of open right trimalleolar fracture status post surgical debridement and irrigation, and external fixator placement who presents to [facility] emergency room from Dr. Kelley's office due to concerns for increased drainage from surgical site, gangrenous changes of skin. Dr. Kelley is planning on doing an irrigation and debridement of surgical site, and there talks about consideration of below-knee amputation if surgical interventions fail. Patient denies any falls recently, denies any recent trauma, denies fevers, denies chills, is obeying the state home orders, denies chest pain, denies palpitations, denies shortness of breath, continues to smoke, does report drinking 3 alcoholic drinks of vodka daily, no recent history of alcohol withdrawal or withdrawal seizures. Review of Systems Const: Denies: fever, chills, fatigue or malaise Eyes: Denies: change in vision or blurry vision ENMT: Denies: nasal congestion Card: Denies: chest pain, palpitations, irregular heart rhythm, edema, lightheadedness, syncope or pre-syncope Resp: Denies: shortness of breath, productive cough, non-productive cough or wheezing GI: Denies: abdominal pain, nausea, vomiting, vomiting blood, diarrhea, constipation, blood in stool or black tarry stool : Denies: flank pain, painful urination or urinary frequency Musc: Denies: neck pain or back pain Skin/Breast: Denies: rash Neuro: Denies: headache, dizziness or vertigo Psych: Denies: anxiety or depression Endo: Denies: excessive urination or excessive thirst Medications/Allergies Home Medications Medication Instructions Recorded Confirmed Last Taken Type B Complex Plus Vitamin C 1 cap PO DAILY #30 cap 06/22/19 07/06/19 Unknown Rx Protonix 40 mg PO DAILY 30 Days #30 tab 06/22/19 07/06/19 Unknown Rx Vitamin D3 5,000 unit PO DAILY #30 tab 06/22/19 07/06/19 Unknown Rx albuterol sulfate 2.5 mg INHALATION Q6H #30 vial 06/22/19 07/06/19 Unknown Rx budesonide [Pulmicort] 1 mg INHALATION BID #60 ml 06/22/19 07/06/19 Unknown Rx carvedilol 25 mg PO BID #60 tab 06/22/19 07/06/19 Unknown Rx cyclobenzaprine 10 mg PO TID PRN #30 tab 06/22/19 07/06/19 Unknown Rx duloxetine 60 mg PO BID #60 cap 06/22/19 07/06/19 Unknown Rx furosemide [Lasix] 20 mg PO DAILY #30 tab 06/22/19 07/06/19 Unknown Rx hydroxyzine pamoate 50 mg PO BID PRN #60 cap 06/22/19 07/06/19 Unknown Rx lorazepam 1 mg PO QPM #30 tab 06/22/19 07/06/19 Unknown Rx meclizine 25 mg PO BID PRN #30 tab 06/22/19 07/06/19 Unknown Rx pbcacgky-inhnamidtFl-wzdbljdjB 1 applic TOPICAL PRN PRN #30 g 06/22/19 07/06/19 Unknown Rx [Triple Antibiotic] oxycodone-acetaminophen 1 tab PO Q4H PRN #30 tab 06/22/19 07/06/19 Unknown Rx polyethylene glycol 3350 [Miralax] 17 g PO DAILY #30 ea 06/22/19 07/06/19 Unknown Rx rosuvastatin 40 mg PO BEDTIME #30 tab 06/22/19 07/06/19 Unknown Rx sennosides-docusate sodium 2 tab PO BID #120 tab 06/22/19 07/06/19 Unknown Rx tramadol 50 mg PO Q4H PRN #30 tab 06/22/19 07/06/19 Unknown Rx rivaroxaban 10 mg PO DAILY #30 tab 06/25/19 07/06/19 Unknown Rx tramadol 50 mg tablet 50 mg PO Q6H PRN 8 Days #30 tab 06/30/19 07/06/19 Unknown Rx Allergies Allergy/AdvReac Type Severity Reaction Status Date / Time ciprofloxacin AdvReac Unknown ADR-Swelling Verified 07/06/19 13:29 of the Eye doxycycline AdvReac Unknown ADR-Vomitin Verified 07/06/19 13:29 g PFSH Acute PFSH: Social History Smoking and tobacco status: current every day smoker cigarettes Packs smoked per day: 0.5 Second hand smoke exposure: Yes Smoking risk assessment/counseling performed?: Yes Alcohol intake: current Alcohol intake frequency: 3 or more drinks per day Alcohol type: hard liquor Last alcohol use date: 06/16/19 Caregiver/support person: No Lives independently: Yes Household members: significant other Marital status: Single Number of children: 3 service: No Current occupational status: unemployed History of recent travel: No Current gender identity: Female Vitals/I&O/Wt Last Vital Signs Temp 98.2 F 07/06/19 15:14 Pulse 76 07/06/19 15:14 Resp 17 07/06/19 15:34 BP 139/78 07/06/19 15:14 Pulse Ox 98 07/06/19 15:14 Weight last 48 hrs Weight 116.573 kg Physical Exam Const: COMMON NORMALS: no apparent distress and oriented x3 GENERAL APPEARANCE: cooperative and comfortable HENMT: COMMON NORMALS: normocephalic HEAD & SCALP: normocephalic Eye: COMMON NORMALS: PERRL and EOMs intact bilaterally GENERAL EYE: normal appearance of both eyes PUPIL: Yes PERRL Neck/C-Spine: COMMON NORMALS: full ROM, no lymphadenopathy, no JVD and thyroid normal THYROID: thyroid normal Lymph: LYMPHATIC: no lymphadenopathy noted Resp: COMMON NORMALS: normal respiratory effort, no retractions, no use of accessory muscles and clear to auscultation bilaterally AUSCULTATION: clear to auscultation bilaterally Cardio: COMMON NORMALS: no JVD, regular rate, regular rhythm, S1 normal heart sound, S2 normal heart sound, no gallops, no clicks and no murmurs RATE: regular rate RHYTHM: regular rhythm HEART SOUNDS: S1 normal and S2 normal GI: COMMON NORMALS: normal to inspection, nondistended, normoactive bowel sounds, soft to palpation, non-tender and no hepatosplenomegaly PALPATION: Yes soft and Yes no hepatosplenomegaly Extremity: COMMON NORMALS: normal to inspection, full ROM and no pedal edema Neuro: COMMON NORMALS: oriented x3, CN's II-XII intact bilaterally, moves all extremities and no focal motor deficits Psych: COMMON NORMALS: mental status grossly normal, thought process normal and cooperative THOUGHT PROCESS: normal thought process Skin: OTHER: Left lower extremity wrapped in bandage, and external fixator A&P Assessment and plan (1) Open right trimalleolar fracture: -Secondary to fall, wound was originally contaminated with fecal matter, reduced in the emergency room, status post aggressive surgical debridement and irrigation and external fixator placement on 06/16/2019 -Currently there are concerns for medial skin not healing appropriately, medial skin being gangrenous, and drainage from surgical site -Plans are for irrigation and debridement of surgical site, with the possibility of below-knee amputation based on clinical progress Plan: -Admit to general medical floors -Broad-spectrum antibiotics vancomycin and Zosyn -Wound cultures intraoperatively -Blood work CBCs, CMP, pro-Lebron, A1c, ethanol levels -Full code -DVT prophylaxis, patient took Xarelto today, hold further anticoagulation up to orthopedic team Status: Acute (2) Morbid obesity: Status: Acute (3) CAD (coronary artery disease): -Ude-whgb-pacauth stent to RCA, and PCI to second obtuse marginal artery on 05/18/2017 -Has been on aspirin and Plavix since April 2017 -According to patient cardiology want to continue dual antiplatelet therapy -Denies any chest pain, no palpitations, no shortness of breath -On last discharge patient was instructed to continue just Xarelto, but she has been taking both aspirin and Plavix Plan: -We will obtain an EKG -Aspirin, Plavix on hold; will recheck to cardiology about antiplatelet therapy and anticoagulation after surgery -Continue rosuvastatin 40 mg daily -Xarelto patient took dose this morning, hold subsequent doses for surgery Status: Acute Qualifiers: Coronary Disease-Associated Artery/Lesion type: [place] artery [place] vs. transplanted heart: [place] heart Associated angina: angina presence unspecified Qualified Code(s): I25.10 - Atherosclerotic heart disease of [place] coronary artery without angina pectoris (4) Alcohol abuse: Admits to 3 alcoholic drinks per day, obtain ethanol levels, [facility] protocol Status: Acute (5) Chronic obstructive pulmonary disease, unspecified: Status: Acute Qualifiers: COPD type: unspecified COPD Qualified Code(s): J44.9 - Chronic obstructive pulmonary disease, unspecified (6) Vitamin D deficiency: Status: Acute (7) Essential (primary) hypertension: Monitor blood pressures Status: Acute (8) Anxiety and depression: Continue home lorazepam, duloxetine Status: Acute Additional A&P Information Patient is a full code Xarelto for DVT prophylaxis, patient received her dose today, hold subsequent doses in preparation for surgery, further anticoagulation as per orthopedic team Attestations Medical Necessity Statement*: Patient requires inpatient admission, greater than 2 midnights, for right trimalleolar fracture open, concerning for worsening infection Coding Level of Care Code Acute [employer] 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 transplanted heart: [place] heart Associated angina: angina presence unspecified Alcohol abuse F10.10 Chronic obstructive pulmonary disease, unspecified J44.9 COPD type: unspecified COPD Vitamin D deficiency E55.9 Essential (primary) hypertension I10 Anxiety and depression F41.9; F32.9
[2019-07-06 16:06] LABS: Basophils % 0.4 %; Eosinophils # 0.2 10^3/uL (0.0-0.8); Eosinophils % 1.6 %; Hematocrit 39.6 % (37.0-47.0); Hemoglobin 12.1 g/dL (11.5-15.3); Lymphocytes # 1.4 10^3/uL (0.8-4.8); Mean Corpuscular HGB Conc 30.6 g/dL (30.0-36.0); Mean Corpuscular Hemoglobin 27.4 pg (28.0-34.0); Mean Corpuscular Volume 89.8 fL (81-99); Mean Platelet Volume 10.5 fL (7.4-10.4); Monocytes # 0.9 10^3/uL (0.2-0.9); Monocytes % 8.6 %; Neutrophils # 8.3 10^3/uL (1.8-7.7); Neutrophils % 76.1 %; Nucleated Red Blood Cells % 0 %; Platelet Count 327 10^3/cmm (130-400); Red Blood Count 4.41 10^6/uL (4.1-5.3); White Blood Count 10.9 10^3/uL (4.0-10.0)
[2019-07-06 16:23] LABS: Alanine Aminotransferase 11 U/L (0-33); Albumin Level 3.4 g/dL (3.5-5.2); Alkaline Phosphatase 99 IU/L (35-105); Anion Gap 14.5 (5-19); Aspartate Amino Transferase 27 U/L (0-32); Blood Urea Nitrogen 8 mg/dL (8-23); Calcium 9.4 mg/dL (8.5-10.5); Carbon Dioxide 30 mmol/L (22-29); Chloride 98 mmol/L (98-107); Globulin 3.7 g/dL (1.3-4.6); Glucose 101 mg/dL (65-115); Osmolality Calculated 282 mOsm/kg (285-295); Potassium 4.5 mmol/L (3.5-5.1); Sodium 138 mmol/L (136-145); Total Bilirubin 0.5 mg/dL (0.15-1.2); Total Protein 7.1 g/dL (6.6-8.7)
[2019-07-06 16:46] LABS: Amphetamines Screen Urine Negative (Negative); Barbiturates Screen Urine Negative (Negative); Benzodiazepines Screen Urine Positive (Negative); Cocaine Screen Urine Negative (Negative); Opiate Screen Urine Positive (Negative); PCP Screen Urine Negative (Negative); THC Screen Urine Negative (Negative)
[2019-07-06 16:57] LABS: Estmated Average Glucose 111; Hemoglobin A1C 5.5 % (4.0-6.0)
[2019-07-06 17:00] LABS: Alcohol Level < 10 mg/dL (0-10)
[2019-07-06 17:02] LABS: INR 1.32 (0.8-1.2)
[2019-07-06 17:07] LABS: Add Urine Microscopic? YES; Bilirubin Urine Neg (NEGATIVE); Blood Urine Neg (Negative); Glucose Urine UA Norm (Normal); Ketones Urine Negative (Negative); Leukocyte Esterase Urine Trace (Negative); Nitrate Urine Negative (Negative); Protein Urine Neg (Negative); Specific Gravity, Urine 1.005 (1.005-1.030); Urine Appearance Clear (CLEAR); Urine Color Yellow (Yellow); Urobilinogen Urine Norm (Negative); pH Urine 7 (5-7)
[2019-07-06 17:08] LABS: Add Urine Culture? Yes; Bacteria Urine TRACE; Squamous Epithelial Cell Urine 15-25 (0-5)
--- NOTE | 2019-07-06 17:18 | PC.RESP ---
Smoking Cessation and Pulmonary Rehab information to patient with a schedule of classes.
[2019-07-06] MEDS: morphine 4 mg/mL SDV 1 mL 2 MG IVP ×2 (17:49→23:45)
[2019-07-06] MEDS: duloxetine 60 mg Capsule PO (17:50)
[2019-07-06] MEDS: sennosides-docusate Tablet 2 TAB PO (17:50)
[2019-07-06] MEDS: LORazepam 1 mg Tablet PO (17:50)
[2019-07-06] MEDS: carvedilol 25 mg Tablet PO (17:51)
[2019-07-06] MEDS: sodium chloride 0.9% 1,000 ML 100 ML IV (17:58)
[2019-07-06] MEDS: atorvastatin 40 mg Tablet 80 MG PO (20:14)
[2019-07-06] MEDS: piperacillin-tazobactam 3.375 GM in sodium chloride 0.9% (plus) 50 ML IV (20:20)
[2019-07-06] MEDS: cyclobenzaprine 10 mg Tablet PO (21:10)
[2019-07-06] MEDS: ondansetron 2 mg/ML SDV 2 mL 4 MG IVP (23:34)
[2019-07-06] MEDS: TRAMadol 50 mg Tablet PO (23:45)
[2019-07-07] VITALS (30 sets, daily range): BP systolic 85–120; BP diastolic 47–77; PULSE 72–95; RESP 16–23; TEMP 36.6–37.7; O2SAT 90–100
--- NOTE | 2019-07-07 | XR_ITS ---
WS: [id number] XR ankle RT min 3V* [id number] REASON FOR EXAM: introp eval FINDINGS: Traction of the ankle persists. The fracture parts of the fibula and tibia remain in unchan ged position since exam yesterday. The ankle mortise appears to be essentially normal. XR/XR ankle RT min 3V* [id number] IMPRESSION: Skeletal traction remains in good position.
--- NOTE | 2019-07-07 | SCC_ITS ---
Procedure Done: Excisional debridement gangrene right medial leg Procedure Done: Vision wound VAC right leg 4.2- seconds of fluoroscopic guidance, for a cumulative dose of 0.16 mGy, was provided to Dr. Kelley by the radiology department. C-arm images of the RIGHT ankle were saved for the patient's permanent record. JANET
[2019-07-07] MEDS: piperacillin-tazobactam 3.375 GM in sodium chloride 0.9% (plus) 50 ML IV ×2 (03:57→18:07)
[2019-07-07 05:50] LABS: Basophils % 0.4 %; Eosinophils # 0.1 10^3/uL (0.0-0.8); Eosinophils % 0.7 %; Hematocrit 38.2 % (37.0-47.0); Hemoglobin 11.5 g/dL (11.5-15.3); Lymphocytes # 1.2 10^3/uL (0.8-4.8); Lymphocytes % 11.6 %; Mean Corpuscular HGB Conc 30.1 g/dL (30.0-36.0); Mean Corpuscular Hemoglobin 28.3 pg (28.0-34.0); Mean Corpuscular Volume 93.9 fL (81-99); Mean Platelet Volume 10.6 fL (7.4-10.4); Monocytes # 1.1 10^3/uL (0.2-0.9); Monocytes % 10.3 %; Neutrophils % 76.6 %; Nucleated Red Blood Cells % 0 %; Platelet Count 270 10^3/cmm (130-400); Red Blood Count 4.07 10^6/uL (4.1-5.3); Red Cell Distribution Width 16.4 % (12.1-15.1); White Blood Count 10.4 10^3/uL (4.0-10.0)
[2019-07-07 06:07] LABS: Alanine Aminotransferase 10 U/L (0-33); Alkaline Phosphatase 93 IU/L (35-105); Anion Gap 15.2 (5-19); Aspartate Amino Transferase 23 U/L (0-32); Blood Urea Nitrogen 6 mg/dL (8-23); Calcium 8.8 mg/dL (8.5-10.5); Carbon Dioxide 26 mmol/L (22-29); Chloride 101 mmol/L (98-107); Globulin 3.5 g/dL (1.3-4.6); Glucose 87 mg/dL (65-115); Magnesium 2.2 mg/dL (1.7-2.3); Osmolality Calculated 281 mOsm/kg (285-295); Phosphorus 4.5 mg/dL (2.5-4.5); Potassium 4.2 mmol/L (3.5-5.1); Sodium 138 mmol/L (136-145); Total Bilirubin 0.6 mg/dL (0.15-1.2); Total Protein 6.5 g/dL (6.6-8.7)
[2019-07-07 06:09] LABS: Chol HDL Ratio 2.83 mg/dL (0.0-4.40); Cholesterol 102 mg/dL (0-200); HDL Cholesterol 36 mg/dL (60-100); LDL Cholesterol Calculated 45 mg/dL (50-129); LDL HDL Ratio 1.25 RATIO (0.00-3.22); Triglycerides 107 mg/dL (0-150)
--- NOTE | 2019-07-07 06:26 | P.ANESASSM_ITS ---
Pre-Anesthetic Assessment Pre-Anesthetic Assessment: Height/Weight: Height 1.63 m Weight 116.573 kg Temp Pulse Resp BP Pulse Ox 98.5 F 89 18 104/65 93 07/07/19 04:00 07/07/19 04:00 07/07/19 04:00 07/07/19 04:00 07/07/19 04:00 Preop Diagnosis: Grade 2 open right trimalleolar ankle fracture Proposed Procedure: Operation Date: 07/07/19 11:05 Proposed Procedures p Debridement Lower Extremity(Right) - Romeo Kelley MD Familial anesthetic complications: hx critically low desaturation events during coloscopy and anesthesia induction Was Beta Miles taken within 24 hours: Yes Last intake: NPO > 8 hrs Social: Social History: Alcohol (alcoholism - continue to drink 3 vodkas a night) and Tobacco (smoker) Comment: alchol 2 nights Exam: Pre-Anes Outpt Exam: alert, oriented x 3, clear to auscultation bilaterally and regular rate & rhythm Airway: Cervical ROM: WNL MP: 4 Dentition: Chipped Pulmonary: Pulmonary: COPD (hx of severe desaturations with anesthesia during MAC and post induction) CV/HEM: CV/HEM: CAD (s/p stent to RCA and angioplast to obtuse marginal in 2018 on dual antiplatelet therapy - getting xarelto in hospital) and HTN : : None reported Hepatic: Hepatic: None reported GI: GI: GERD Metabolic: Metabolic: Hyperlipidemia and Morbid obesity Comments: hx hyperglycemia Musc/skel: Comments: hx open ankle fracture s/p Neuropsych: Neuropsych: Anxiety and Depression Anesthetic Plan: ASA status: 4 Anesthesia: General Risk of > 500 ml blood loss (7ml/kg in children): No Meds/Allergies Current Medications: Current Medications Generic Name Dose Route Start Last Admin Trade Name Freq PRN Reason Stop Dose Admin Atorvastatin Calci um 80 mg 07/06/19 21:00 07/06/19 20:14 Lipitor PO 80 mg BEDTIME DANYEL Administration Budesonide 1 mg 07/06/19 20:00 07/06/19 21:40 Pulmicort INHALATION Not Given BID.RESPIRATORY S CH Carvedilol 25 mg 07/06/19 18:00 07/06/19 17:51 Coreg PO 25 mg BID DANYEL Administration Cyclobenzaprine HC l 10 mg 07/06/19 17:34 07/06/19 21:10 Flexeril PO 10 mg TID PRN Administration Muscle Spasm Duloxetine HCl 60 mg 07/06/19 18:00 07/06/19 17:50 Cymbalta PO 60 mg BID DANYEL Administration Sodium Chloride 1,000 mls @ 100 m ls/hr 07/06/19 17:34 07/07/19 03:20 Sodium Chloride 0.9% IV 0 mls/hr .Q10H DANYEL Infusion Vancomycin HCl 1,2 50 mg/ 250 mls @ 200 mls /hr 07/06/19 18:15 07/07/19 02:17 Sodium Chloride IV 200 mls/hr Q8H DANYEL Administration Protocol Piperacillin Sod/T azobactam 50 mls @ 12.5 mls /hr 07/06/19 19:00 07/07/19 03:57 Sod 3.375 gm/ So dium Chloride IV 12.5 mls/hr Q8H DANYEL Administration Protocol Lorazepam 1 mg 07/06/19 18:00 07/06/19 17:50 Ativan PO 1 mg QPM DANYEL Administration Morphine Sulfate 2 mg 07/06/19 17:34 07/06/19 23:45 Morphine IVP 2 mg Q4H PRN Administration SEVERE PAIN Non-Formulary Medi cation 2.5 mg 07/06/19 17:34 07/06/19 23:30 Albuterol Sulfat e INHALATION Not Given Q6H DANYEL Ondansetron HCl 4 mg 07/06/19 17:34 07/06/19 23:34 Zofran IVP 4 mg Q8H PRN Administration vomiting, or N/V if npo Senna/Docusate Sod ium 2 tab 07/06/19 18:00 07/06/19 17:50 Senna-S PO 2 tab BID DANYEL Administration Tramadol HCl 50 mg 07/06/19 17:34 07/06/19 23:45 Ultram PO 50 mg Q4H PRN Administration Breakthrough Pain , Mild PFSH Anesthesia PFSH: Medical History (Updated 07/06/19 @ 16:11 by Luis Daniel Walsh MD) Alcohol abuse -Long history of documented chronic alcohol abuse; acutely intoxicated resulting in fall and subsequent right trimalleolar fracture -EtOH level-206 -with timeline since last drink, less likely to experience alcohol withdrawal -CIWA protocol, thiamine/MVI/folate daily -fall/seizure/aspiration precautions -1:1 monitoring no longer required as mental status improved Anxiety and depression -on Ativan, hydroxyzine CAD (coronary artery disease) -has known hx of CAD with prior stenting -on ASA, plavix, statin Chronic obstructive pulmonary disease, unspecified -no acute exacerbation -supplemental oxygen as needed -continue to monitor respiratory status Essential (primary) hypertension -close monitoring of vital signs -off pressor support as needed to maintain MAP > 65; off IVF hydration -on oral antihypertensives Hyperglycemia Intervertebral disc disorder with radiculopathy of lumbar region Mixed hyperlipidemia Morbid obesity -BMI-52 kg/m2 Osteoarthritis, chronic Vitamin D deficiency Surgical History H/O esophagogastroduodenoscopy 05/04/2019: Status post gastric bypass with grade B esophagitis History of 2 sections History of cholecystectomy History of coronary artery stent placement History of gastric bypass History of hysterectomy History of left hip replacement History of right hip replacement Status post colonoscopy with polypectomy 05/04/2019: Descending colon polyp Social History Smoking and tobacco status: current every day smoker cigarettes Packs smoked per day: 0.5 Second hand smoke exposure: Yes Smoking risk assessment/counseling performed?: Yes Alcohol intake: current Alcohol intake frequency: 3 or more drinks per day Alcohol type: hard liquor Last alcohol use date: 06/16/19 Caregiver/support person: No Lives independently: Yes Household members: significant other Marital status: Single Number of children: 3 service: No Current occupational status: unemployed History of recent travel: No Current gender identity: Female Data Anesthesia CBC & Chem 7: 07/07/19 05:10 07/07/19 05:10 Other Labs: Laboratory Results - last 48 hr 07/06/19 07/06/19 07/06/19 15:54 15:54 15:54 WBC 10.9 H RBC 4.41 Hgb 12.1 Hct 39.6 MCV 89.8 MCH 27.4 L MCHC 30.6 RDW 16.0 H Plt Count 327 MPV 10.5 H Neut % (Auto) 76.1 Lymph % (Auto) 13.0 [place] % (Auto) 8.6 Eos % (Auto) 1.6 Baso % (Auto) 0.4 Neut # (Auto) 8.3 H Lymph # (Auto) 1.4 [place] # (Auto) 0.9 Eos # (Auto) 0.2 Baso # (Auto) 0.0 Nucleated RBC % (auto) 0 Nucleated RBCs # 0.0 PT 16.80 H INR 1.32 H Sodium 138 Potassium 4.5 Chloride 98 Carbon Dioxide 30 H Anion Gap 14.5 BUN 8 Creatinine 0.6 GFR Calculation 102.0 Glucose 101 Estimat Average Glucose Hemoglobin A1c Calculated Osmolality 282 L Calcium 9.4 Phosphorus Magnesium Total Bilirubin 0.5 AST 27 ALT 11 Alkaline Phosphatase 99 Total Protein 7.1 Albumin 3.4 L Globulin 3.7 Triglycerides Cholesterol LDL Cholesterol, Calc HDL Cholesterol LDL/HDL Ratio Cholesterol/HDL Ratio Urine Color Urine Appearance Urine pH Ur Specific [place] Urine Protein Urine Glucose (UA) Urine Ketones Urine Blood Urine Nitrate Urine Bilirubin Urine Urobilinogen Ur Leukocyte Esterase Urine RBC Urine WBC Ur Squamous Epith Cells Urine Bacteria Urine Opiates Screen Ur Barbiturates Screen Ur Phencyclidine Scrn Ur Amphetamines Screen U Benzodiazepines Scrn Urine Cocaine Screen U Marijuana (THC) Screen Ethyl Alcohol 07/06/19 07/06/19 07/06/19 15:54 15:54 16:07 WBC RBC Hgb Hct MCV MCH MCHC RDW Plt Count MPV Neut % (Auto) Lymph % (Auto) [place] % (Auto) Eos % (Auto) Baso % (Auto) Neut # (Auto) Lymph # (Auto) [place] # (Auto) Eos # (Auto) Baso # (Auto) Nucleated RBC % (auto) Nucleated RBCs # PT INR Sodium Potassium Chloride Carbon Dioxide Anion Gap BUN Creatinine GFR Calculation Glucose Estimat Average Glucose 111 Hemoglobin A1c 5.5 Calculated Osmolality Calcium Phosphorus Magnesium Total Bilirubin AST ALT Alkaline Phosphatase Total Protein Albumin Globulin Triglycerides Cholesterol LDL Cholesterol, Calc HDL Cholesterol LDL/HDL Ratio Cholesterol/HDL Ratio Urine Color Yellow Urine Appearance Clear Urine pH 7 Ur Specific [place] 1.005 Urine Protein Neg Urine Glucose (UA) Norm Urine Ketones Negative Urine Blood Neg Urine Nitrate Negative Urine Bilirubin Neg Urine Urobilinogen Norm Ur Leukocyte Esterase Trace H Urine RBC None Urine WBC 5-10 H Ur Squamous Epith Cells 15-25 H Urine Bacteria Trace Urine Opiates Screen Ur Barbiturates Screen Ur Phencyclidine Scrn Ur Amphetamines Screen U Benzodiazepines Scrn Urine Cocaine Screen U Marijuana (THC) Screen Ethyl Alcohol < 10 07/06/19 07/07/19 07/07/19 16:07 05:10 05:10 WBC 10.4 H RBC 4.07 L Hgb 11.5 Hct 38.2 MCV 93.9 MCH 28.3 MCHC 30.1 RDW 16.4 H Plt Count 270 MPV 10.6 H Neut % (Auto) 76.6 Lymph % (Auto) 11.6 [place] % (Auto) 10.3 Eos % (Auto) 0.7 Baso % (Auto) 0.4 Neut # (Auto) 8.0 H Lymph # (Auto) 1.2 [place] # (Auto) 1.1 H Eos # (Auto) 0.1 Baso # (Auto) 0.0 Nucleated RBC % (auto) 0 Nucleated RBCs # 0.0 PT INR Sodium 138 Potassium 4.2 Chloride 101 Carbon Dioxide 26 Anion Gap 15.2 BUN 6 L Creatinine 0.6 GFR Calculation 102.0 Glucose 87 Estimat Average Glucose Hemoglobin A1c Calculated Osmolality 281 L Calcium 8.8 Phosphorus 4.5 Magnesium 2.2 Total Bilirubin 0.6 AST 23 ALT 10 Alkaline Phosphatase 93 Total Protein 6.5 L Albumin 3.0 L Globulin 3.5 Triglycerides Cholesterol LDL Cholesterol, Calc HDL Cholesterol LDL/HDL Ratio Cholesterol/HDL Ratio Urine Color Urine Appearance Urine pH Ur Specific [place] Urine Protein Urine Glucose (UA) Urine Ketones Urine Blood Urine Nitrate Urine Bilirubin Urine Urobilinogen Ur Leukocyte Esterase Urine RBC Urine WBC Ur Squamous Epith Cells Urine Bacteria Urine Opiates Screen Positive H Ur Barbiturates Screen Negative Ur Phencyclidine Scrn Negative Ur Amphetamines Screen Negative U Benzodiazepines Scrn Positive H Urine Cocaine Screen Negative U Marijuana (THC) Screen Negative Ethyl Alcohol 07/07/19 05:10 WBC RBC Hgb Hct MCV MCH MCHC RDW Plt Count MPV Neut % (Auto) Lymph % (Auto) [place] % (Auto) Eos % (Auto) Baso % (Auto) Neut # (Auto) Lymph # (Auto) [place] # (Auto) Eos # (Auto) Baso # (Auto) Nucleated RBC % (auto) Nucleated RBCs # PT INR Sodium Potassium Chloride Carbon Dioxide Anion Gap BUN Creatinine GFR Calculation Glucose Estimat Average Glucose Hemoglobin A1c Calculated Osmolality Calcium Phosphorus Magnesium Total Bilirubin AST ALT Alkaline Phosphatase Total Protein Albumin Globulin Triglycerides 107 Cholesterol 102 LDL Cholesterol, Calc 45 L HDL Cholesterol 36 L LDL/HDL Ratio 1.25 Cholesterol/HDL Ratio 2.83 Urine Color Urine Appearance Urine pH Ur Specific [place] Urine Protein Urine Glucose (UA) Urine Ketones Urine Blood Urine Nitrate Urine Bilirubin Urine Urobilinogen Ur Leukocyte Esterase Urine RBC Urine WBC Ur Squamous Epith Cells Urine Bacteria Urine Opiates Screen Ur Barbiturates Screen Ur Phencyclidine Scrn Ur Amphetamines Screen U Benzodiazepines Scrn Urine Cocaine Screen U Marijuana (THC) Screen Ethyl Alcohol Micro: Microbiology 07/06/19 15:54 Blood Culture - Preliminary Blood SPECIMEN COLLECTED 07/06/19 15:54 Blood Culture - Preliminary Blood SPECIMEN COLLECTED Cardiac Studies: No Data to Display
--- NOTE | 2019-07-07 07:00 | XR_ITS ---
WS: [id number] XR chest 1V portable [id number] REASON FOR EXAM: sob FINDINGS: Borderline cardiomegaly. The lung cloud are well aerated. No pneumonia, pleural effusion, pulmonary edema, or mass effect. The hilum and apices normal. No osseous abnormalities. XR/XR chest 1V portable [id number] IMPRESSION: Borderline cardiomegaly.
[2019-07-07] MEDS: budesonide 0.5 mg/2 mL Neb 1 MG INHALATION ×2 (08:19→19:33)
[2019-07-07] MEDS: sodium chloride 0.9% 1,000 ML 100 ML IV (08:28)
[2019-07-07] MEDS: carvedilol 25 mg Tablet PO ×2 (08:32→18:04)
[2019-07-07] MEDS: duloxetine 60 mg Capsule PO ×2 (08:32→18:04)
[2019-07-07] MEDS: cholecalciferol (vitamin D3) 5,000 unit Tablet 5000 UNIT PO (08:32)
[2019-07-07] MEDS: FUROsemide 20 mg Tablet PO (08:32)
[2019-07-07] MEDS: fentaNYL 50 mcg/mL INJ 2mL 25 MCG IVP (09:03)
--- NOTE | 2019-07-07 10:53 | PM.OP ---
Operative Report Date of procedure: July 07, 2019 Pre-op Diagnosis: Gangrene right medial leg, right trimalleolar ankle fracture Post-op Findings: Same Procedure Done: Excisional debridement gangrene right medial leg Implants: None Surgeon: Romeo Kelley Anesthesia: General Estimated blood loss (mL): 50 Findings: Patient had a gangrenous superficial wound over the distal extent of her previous wound measuring approximately 5 x 5 cm. There was lesser necrosis extending proximally along the excision for a total longitudinal length of approximately 13 cm fortunately the deep tissues appeared relatively healthy and at no point was exposed bone or joint identified Condition: stable Brief History: The patient is a 59-year-old female who 2 weeks ago sustained a open right trimalleolar ankle fracture. She was treated with emergent irrigation debridement and external fixator placement until her soft tissue stabilized. She presented the clinic yesterday with foul-smelling medial wound without obvious necrosis. She was counseled with options. She is taken to the operating room today for aggressive debridement of the wound. She is been counseled as to the possible risk of below-knee amputation Procedure: The patient was taken to the operating room and given a general anesthesia. No antibiotics were given other than those prescribed preoperatively. The leg was prepped and draped in the usual fashion. A timeout was performed. Initially the area of the necrotic skin was excised superficially leaving the stable margins. Really no purulence was identified in the deep tissues and there seemed to be a fairly reasonable vascular base of tissue present. Small amounts of necrotic tissue were removed the deep wound with a run your. Necrotic skin edges were then dissected proximally along the course of the incision. Intraoperative imaging was used to verify alignment of the talus in the mortise and continued alignment of fracture fragments. A wound VAC was applied. The patient was taken recovery room in stable condition.
--- NOTE | 2019-07-07 11:02 | SUR.PHASEI ---
PT AWAKE ALERT ON RA PT VERBALLLY DENIES PAIN AND NAUSEA RT LOWER LEG WITH EXTERNAL FIXATOR IN PLACE, DISTAL TOES PINK WITH CAP REFILL LESS THAN [address] VAC IN PL[address] PT SATS DOWN TO 89% PT PLACED ON3LNC SAT UP TO 92%
--- NOTE | 2019-07-07 11:47 | SUR.PHASEI ---
1130 PT TO FLOOR PER BED LEG ELEVATED ON PILLOW LT PINK DRAINAGE TO PILLOW NOTED ON ARRIVAL TO FLOOR, WOUND VAC WORKING BUT NOT COMPLETLY SEALED, DR CARVER NOTIFIED IN OR, TECH YULIANA TO FLOOR TO REDRESS WOUND VAC. DISTAL TOES PINK UNCHANGED PT AWAKES EASLILY BP 99/66, SATS ON 3LNC 98%, HR 86, RESP 18. PT ALERT AND TALKATIVE WITH HAIM NAGEL
--- NOTE | 2019-07-07 13:25 | PM.OP ---
Operative Report Date of procedure: July 07, 2019 Pre-op Diagnosis: Failing wound VAC right leg Post-op diagnosis: same Post-op Findings: Same Procedure Done: Vision wound VAC right leg Pathology: none sent Anesthesia: General Complications: None Findings: Patient had the previously described open wound over the right medial anchor measuring approximately 13 x 5 Condition: stable Disposition: PACU Brief History: The patient underwent wound VAC placement after debridement of an open ankle wound earlier today. I was called by the floor with a large hematoma beneath the wound VAC. The hematoma could not successfully be evacuated by correcting the developed leak. The patient was taken back to the operating room for revision of the wound VAC under pain control of anesthesia Procedure: The patient was taken to the operating room and given sedation by the anesthesia department. The old wound VAC was removed and a new wound VAC applied patient tolerated the procedure well and was taken to recovery room in stable condition.
--- NOTE | 2019-07-07 15:07 | P.PN_ITS ---
Subjective Subjective: Interval history: Patient was seen postoperatively, no acute events overnight, no chest pain, no shortness of breath, pain is well controlled, patient is doing well after her surgical procedure, denies shortness of breath, denies fevers, denies a cough, denies lightheadedness, denies dizziness Vitals/I&O/Wt Last Vital Signs Temp 98.3 F 07/07/19 14:04 Pulse 86 07/07/19 14:04 Resp 18 07/07/19 14:04 BP 98/63 07/07/19 14:04 Pulse Ox 94 07/07/19 14:04 07/07/19 07/07/19 07/07/19 06:59 14:59 22:59 Intake Total 1236.667 / 1726.667 313.333 / 313.333 Output Total 675 / 675 Balance 1236.667 / 326.667 -361.667 / -361.667 Weight last 48 hrs Weight 116.573 kg Physical Exam Const: COMMON NORMALS: no apparent distress and oriented x3 HENMT: COMMON NORMALS: normocephalic HEAD & SCALP: normocephalic Neck/C-Spine: COMMON NORMALS: no JVD Resp: COMMON NORMALS: normal respiratory effort, no retractions, no use of accessory muscles and clear to auscultation bilaterally AUSCULTATION: clear to auscultation bilaterally Cardio: COMMON NORMALS: no JVD, regular rate, regular rhythm, S1 normal heart sound and S2 normal heart sound RATE: regular rate RHYTHM: regular rhythm HEART SOUNDS: S1 normal and S2 normal GI: COMMON NORMALS: normal to inspection, nondistended, normoactive bowel s ounds, soft to palpation, non-tender, no hepatosplenomegaly, no masses and no bruits PALPATION: Yes soft and Yes no hepatosplenomegaly Extremity: COMMON NORMALS: normal capillary refill and no pedal edema NARRATIVE EXTREMITY EXAM: Right leg with wound VAC in place, in external fixator Neuro: COMMON NORMALS: oriented x3 Psych: COMMON NORMALS: mental status grossly normal Data : 07/07/19 05:10 07/07/19 05:10 Micro: Microbiology 07/06/19 15:54 Blood Culture - Preliminary Blood SPECIMEN COLLECTED 07/06/19 15:54 Blood Culture - Preliminary Blood SPECIMEN COLLECTED A&P Assessment and plan (1) Open right trimalleolar fracture: -Secondary to fall, wound was originally contaminated with fecal matter, reduced in the emergency room, status post aggressive surgical debridement and irrigation and external fixator placement on 06/16/2019 -Status post excisional debridement of gangrene right medial leg, and revision of wound VAC right leg Plan: -Admit to general medical floors -Broad-spectrum antibiotics vancomycin and Zosyn -Full code -DVT prophylaxis, Xarelto -pain control Status: Acute (2) Morbid obesity: Status: Acute (3) CAD (coronary artery disease): -[id number] stent to RCA, and PCI to second obtuse marginal artery on 05/18/2017 -Has been on aspirin and Plavix since April 2017 -According to patient cardiology want to continue dual antiplatelet therapy -Denies any chest pain, no palpitations, no shortness of breath -On last discharge patient was instructed to continue just Xarelto, but she has been taking both aspirin and Plavix -I spoke to Dr. Pelaez he was okay with continuing just Plavix, stop aspirin Plan: -Continue Plavix 75 mg once daily -Continue rosuvastatin 40 mg daily -Continue Xarelto Status: Acute (4) Alcohol abuse: Admits to 3 alcoholic drinks per day, obtain ethanol levels, CIWA protocol Status: Acute (5) Chronic obstructive pulmonary disease, unspecified: Status: Acute (6) Vitamin D deficiency: Status: Acute (7) Essential (primary) hypertension: Monitor blood pressures Status: Acute (8) Anxiety and depression: Continue home lorazepam, duloxetine Status: Acute Additional A&P Information Patient is a full code Xarelto for DVT prophylaxis, patient received her dose today, hold subsequent doses in preparation for surgery, further anticoagulation as per orthopedic team Attestations Medical Necessity Statement*: Patient requires hospitalization for right trimalleolar surgical site infection, required surgical debridement Coding Level of Care Code Acute Photographic Spotter for [facility] Yrn Diagnoses Open right trimalleolar fracture S82.851B Morbid obesity E66.01 CAD (coronary artery disease) I25.10 Alcohol abuse F10.10 Chronic obstructive pulmonary disease, unspecified J44.9 Vitamin D deficiency E55.9 Essential (primary) hypertension I10 Anxiety and depression F41.9; F32.9
[2019-07-07 15:49] LABS: Vancomycin Trough 25.4 ug/mL (10-15)
[2019-07-07] MEDS: lanolin oint 7 gm 1 APPLIC TOPICAL (16:18)
[2019-07-07] MEDS: LORazepam 1 mg Tablet PO (18:04)
[2019-07-07] MEDS: ondansetron 2 mg/ML SDV 2 mL 4 MG IVP (18:04)
[2019-07-07 18:18] LABS: Vancomycin Trough 23.2 ug/mL (10-15)
--- NOTE | 2019-07-07 18:30 | PC.NURSE ---
WOUND VAC Patient has wound vac in place to right lower leg. THere is a pool of red blood noted in the lower portion of the black sponge on the wound vac. reinforced with tegaderm and notified dr. bentley who states to increase suction. i increased suction to 150mm. He asked to consult wound care and i spoke with dr. kent who states there is no such thing as wound care consult and that he would offer wound care for surgical intevention and will be willing to speak with Yue . Will continue to closely monitor.
--- NOTE | 2019-07-07 20:07 | PC.NURSE ---
Patient's blood pressure is 91/60. Nurse been notified.
[2019-07-07] MEDS: atorvastatin 40 mg Tablet 80 MG PO (21:36)
[2019-07-08] VITALS (15 sets, daily range): BP systolic 93–117; BP diastolic 58–74; PULSE 66–87; RESP 16–24; TEMP 36.4–36.9; O2SAT 91–99
[2019-07-08] MEDS: sodium chloride 0.9% 1,000 ML 100 ML IV (00:41)
[2019-07-08] MEDS: hyDROXYzine 25 mg Capsule 50 MG PO (00:41)
[2019-07-08] MEDS: piperacillin-tazobactam 3.375 GM in sodium chloride 0.9% (plus) 50 ML IV ×3 (03:59→18:36)
[2019-07-08 06:21] LABS: Basophils % 0.6 %; Eosinophils # 0.2 10^3/uL (0.0-0.8); Eosinophils % 3.3 %; Hematocrit 32.6 % (37.0-47.0); Hemoglobin 9.7 g/dL (11.5-15.3); Lymphocytes # 1.5 10^3/uL (0.8-4.8); Lymphocytes % 21.1 %; Mean Corpuscular HGB Conc 29.8 g/dL (30.0-36.0); Mean Corpuscular Hemoglobin 27.2 pg (28.0-34.0); Mean Corpuscular Volume 91.3 fL (81-99); Mean Platelet Volume 10.7 fL (7.4-10.4); Monocytes # 0.9 10^3/uL (0.2-0.9); Monocytes % 13.2 %; Neutrophils # 4.3 10^3/uL (1.8-7.7); Neutrophils % 61.5 %; Nucleated Red Blood Cells % 0 %; Platelet Count 237 10^3/cmm (130-400); Red Blood Count 3.57 10^6/uL (4.1-5.3); Red Cell Distribution Width 16.3 % (12.1-15.1)
[2019-07-08 06:37] LABS: Alanine Aminotransferase 9 U/L (0-33); Albumin Level 2.7 g/dL (3.5-5.2); Alkaline Phosphatase 78 IU/L (35-105); Anion Gap 12.9 (5-19); Aspartate Amino Transferase 25 U/L (0-32); Blood Urea Nitrogen 6 mg/dL (8-23); Calcium 8.6 mg/dL (8.5-10.5); Carbon Dioxide 26 mmol/L (22-29); Chloride 105 mmol/L (98-107); Globulin 3.2 g/dL (1.3-4.6); Glomerular Filtration Rate 85.4 mL/min (90-130); Glucose 86 mg/dL (65-115); Magnesium 2.2 mg/dL (1.7-2.3); Osmolality Calculated 285 mOsm/kg (285-295); Phosphorus 3.8 mg/dL (2.5-4.5); Potassium 3.9 mmol/L (3.5-5.1); Sodium 140 mmol/L (136-145); Total Bilirubin 0.5 mg/dL (0.15-1.2); Total Protein 5.9 g/dL (6.6-8.7)
[2019-07-08] MEDS: morphine 4 mg/mL SDV 1 mL 2 MG IVP ×3 (08:39→21:38)
[2019-07-08] MEDS: carvedilol 25 mg Tablet PO ×2 (08:45→17:16)
[2019-07-08] MEDS: clopidogrel 75 mg Tablet PO (08:45)
[2019-07-08] MEDS: cholecalciferol (vitamin D3) 5,000 unit Tablet 5000 UNIT PO (08:45)
[2019-07-08] MEDS: duloxetine 60 mg Capsule PO ×2 (08:45→17:16)
[2019-07-08] MEDS: FUROsemide 20 mg Tablet PO (08:45)
[2019-07-08] MEDS: pantoprazole DR 40 mg Tablet PO (08:46)
[2019-07-08] MEDS: rivaroxaban 10 mg Tablet PO (08:46)
[2019-07-08] MEDS: sodium chloride 0.9% 1,000 ML 50 ML IV (09:35)
[2019-07-08] MEDS: oxyCODONE-APAP 5-325 mg Tablet 1 TAB PO ×2 (10:21→17:17)
--- NOTE | 2019-07-08 13:44 | PM.PN ---
Subjective Subjective: Interval history: Patient states that her pain medications wear off too soon, no other events overnight, no fevers, no chills, no nausea, no vomiting, patient is considering assisted placement, remains bedbound, there is also concerns for her wound VAC and area of her wound VAC has increased pooling of blood and/or is not draining properly Vitals/I&O/Wt Last Vital Signs Temp 98 F 07/08/19 12:09 Pulse 66 07/08/19 12:09 Resp 20 H 07/08/19 13:20 BP 98/65 07/08/19 12:09 Pulse Ox 94 07/08/19 12:09 07/07/19 07/08/19 07/08/19 22:59 06:59 14:59 Intake Total 1720 / 2083.333 50 / 2133.333 250 / 250 Output Total 0 675 1350 / 2024 1100 / 1100 Balance 1720 / 1408.333 -1300 / 108.333 -850 / -850 Weight last 48 hrs Weight 116.573 kg Physical Exam Const: COMMON NORMALS: no apparent distress and oriented x3 GENERAL APPEARANCE: cooperative and comfortable HENMT: COMMON NORMALS: normocephalic HEAD & SCALP: normocephalic Eye: COMMON NORMALS: PERRL and EOMs intact bilaterally GENERAL EYE: normal appearance of both eyes PUPIL: Yes PERRL Neck/C-Spine: COMMON NORMALS: no JVD Lymph: LYMPHATIC: no lymphadenopathy noted Resp: COMMON NORMALS: normal respiratory effort, no retractions, no use of accessory muscles and clear to auscultation bilaterally AUSCULTATION: clear to auscultation bilaterally Cardio: COMMON NORMALS: no JVD, regular rate, regular rhythm, S1 normal heart sound, S2 normal heart sound, no gallops, no clicks and no murmurs RATE: regular rate RHYTHM: regular rhythm HEART SOUNDS: S1 normal and S2 normal GI: COMMON NORMALS: normal to inspection, nondistended, normoactive bowel sounds, soft to palpation, non-tender, no hepatosplenomegaly, no masses and no bruits PALPATION: Yes soft and Yes no hepatosplenomegaly Extremity: COMMON NORMALS: no pedal edema NARRATIVE EXTREMITY EXAM: Right leg in an external fixator, wound VAC in place, distal area wound VAC has pooling of blood, Neuro: COMMON NORMALS: oriented x3 Psych: COMMON NORMALS: mental status grossly normal, thought process normal and cooperative THOUGHT PROCESS: normal thought process Data : 07/08/19 05:44 07/08/19 05:44 Micro: Microbiology 07/07/19 10:25 Wound Culture - Preliminary Ankle - #1 07/06/19 16:07 Urine Culture - Preliminary Urine,Clean Catch Gram Negative Rods 07/06/19 15:54 Blood Culture - Preliminary Blood NEGATIVE TO DATE 07/06/19 15:54 Blood Culture - Preliminary Blood NEGATIVE TO DATE A&P Assessment and plan (1) Open right trimalleolar fracture: -Secondary to fall, wound was originally contaminated with fecal matter, reduced in the emergency room, status post aggressive surgical debridement and irrigation and external fixator placement on 06/16/2019 -Status post excisional debridement of gangrene right medial leg, and revision of wound VAC right leg postop day 1 -Area of wound VAC has pooling of blood, decreased suctioning, Dr. Kelley will transition to wet-to-dry dressings Plan: -Admit to general medical floors -Broad-spectrum antibiotics vancomycin and Zosyn follow cultures -Full code -DVT prophylaxis, Xarelto -pain control oxycodone 07/01/2024 every 6 hours as needed, tramadol 50 mg every 4 as needed -Patient is considering assisted placement Status: Acute (2) Morbid obesity: Status: Acute (3) CAD (coronary artery disease): -[id number] stent to RCA, and PCI to second obtuse marginal artery on 05/18/2017 -Has been on aspirin and Plavix since April 2017 -According to patient cardiology want to continue dual antiplatelet therapy -Denies any chest pain, no palpitations, no shortness of breath -On last discharge patient was instructed to continue just Xarelto, but she has been taking both aspirin and Plavix -I spoke to Dr. Pelaez he was okay with continuing just Plavix, stop aspirin Plan: -Continue Plavix 75 mg once daily -Continue rosuvastatin 40 mg daily -Continue Xarelto Status: Acute (4) Alcohol abuse: Admits to 3 alcoholic drinks per day, obtain ethanol levels, CIWA protocol Status: Acute (5) Chronic obstructive pulmonary disease, unspecified: Status: Acute (6) Vitamin D deficiency: Status: Acute (7) Essential (primary) hypertension: Monitor blood pressures Status: Acute (8) Anxiety and depression: Continue home lorazepam, duloxetine Status: Acute Additional A&P Information Patient is a full code Xarelto for DVT prophylaxis, patient received her dose today, hold subsequent doses in preparation for surgery, further anticoagulation as per orthopedic team Attestations Medical Necessity Statement*: She requires hospitalization, for open right trimalleolar fracture status post debridement Coding Level of Care Code Acute Automatic Gluing Machine Operator for [facility] Fwd Diagnoses Open right trimalleolar fracture S82.851B Morbid obesity E66.01 CAD (coronary artery disease) I25.10 Alcohol abuse F10.10 Chronic obstructive pulmonary disease, unspecified J44.9 Vitamin D deficiency E55.9 Essential (primary) hypertension I10 Anxiety and depression F41.9; F32.9
--- NOTE | 2019-07-08 14:45 | P.PN_ITS ---
Subjective Subjective: Interval history: No complaints of some wound or pain. Tolerating p.o. intake Vitals/I&O/Wt Last Vital Signs Temp 98 F 07/08/19 12:09 Pulse 66 07/08/19 12:09 Resp 20 H 07/08/19 13:20 BP 98/65 07/08/19 12:09 Pulse Ox 94 07/08/19 12:09 07/07/19 07/08/19 07/08/19 22:59 06:59 14:59 Intake Total 1720 / 2083.333 50 / 2133.333 250 / 250 Output Total 0 5 1350 / 5 1100 / 1100 Balance 1720 / 1408.333 -1300 / 108.333 -850 / -850 Weight last 48 hrs Weight 257 lb Physical Exam Narrative: EXAM NARRATIVE: Right leg wound VAC discontinued and dressing applied. We will reapply wound VAC when wound stabilizes Data : 07/08/19 05:44 07/08/19 05:44 Micro: Microbiology 07/07/19 10:25 Wound Culture - Preliminary Ankle - #1 07/06/19 16:07 Urine Culture - Preliminary Urine,Clean Catch Gram Negative Rods 07/06/19 15:54 Blood Culture - Preliminary Blood NEGATIVE TO DATE 07/06/19 15:54 Blood Culture - Preliminary Blood NEGATIVE TO DATE A&P Assessment and plan (1) Wound of right leg: We will continue with local dressing changes for now. We will reapply wound VAC once bleeding decreases Status: Acute (2) Open right trimalleolar fracture: We will begin pin site care. Alignment is satisfactory and external fixator I will not convert fixator to internal fixation until wounds are stable. Status: Acute Attestations Medical Necessity Statement*: As per medicine Coding Level of Care Code Acute Barrel Bridge Assembler for [facility] Fwd Diagnoses Wound of right leg S81.801A Open right trimalleolar fracture S82.851B
[2019-07-08 16:38] LABS: Glucose Point of Care 100 mg/dL (70-110)
[2019-07-08] MEDS: LORazepam 1 mg Tablet PO (17:16)
[2019-07-08] MEDS: budesonide 0.5 mg/2 mL Neb 1 MG INHALATION (19:34)
[2019-07-08] MEDS: atorvastatin 40 mg Tablet 80 MG PO (20:05)
[2019-07-08] MEDS: cyclobenzaprine 10 mg Tablet PO (21:38)
[2019-07-09] VITALS (14 sets, daily range): BP systolic 95–128; BP diastolic 63–74; PULSE 67–80; RESP 16–24; TEMP 36.4–36.8; O2SAT 92–99
[2019-07-09] MEDS: hyDROXYzine 25 mg Capsule 50 MG PO (00:43)
[2019-07-09] MEDS: oxyCODONE-APAP 5-325 mg Tablet 1 TAB PO ×3 (00:43→21:31)
[2019-07-09] MEDS: morphine 4 mg/mL SDV 1 mL 2 MG IVP ×2 (02:22→16:46)
[2019-07-09] MEDS: piperacillin-tazobactam 3.375 GM in sodium chloride 0.9% (plus) 50 ML IV ×2 (02:25→11:51)
--- NOTE | 2019-07-09 04:53 | PC.NURSE ---
pt intermittently confused. notified nurse.
[2019-07-09 06:03] LABS: Basophils % 0.4 %; Eosinophils # 0.5 10^3/uL (0.0-0.8); Eosinophils % 5.8 %; Hematocrit 31.4 % (37.0-47.0); Hemoglobin 9.5 g/dL (11.5-15.3); Lymphocytes # 1.8 10^3/uL (0.8-4.8); Lymphocytes % 21.8 %; Mean Corpuscular HGB Conc 30.3 g/dL (30.0-36.0); Mean Corpuscular Volume 92.6 fL (81-99); Mean Platelet Volume 10.6 fL (7.4-10.4); Monocytes # 1.4 10^3/uL (0.2-0.9); Monocytes % 17.3 %; Neutrophils # 4.4 10^3/uL (1.8-7.7); Neutrophils % 54.3 %; Nucleated Red Blood Cells % 0 %; Platelet Count 236 10^3/cmm (130-400); Red Blood Count 3.39 10^6/uL (4.1-5.3); Red Cell Distribution Width 16.5 % (12.1-15.1); White Blood Count 8.1 10^3/uL (4.0-10.0)
[2019-07-09 06:16] LABS: Alanine Aminotransferase 10 U/L (0-33); Albumin Level 2.8 g/dL (3.5-5.2); Alkaline Phosphatase 79 IU/L (35-105); Anion Gap 12.2 (5-19); Aspartate Amino Transferase 25 U/L (0-32); Blood Urea Nitrogen 10 mg/dL (8-23); Calcium 9.5 mg/dL (8.5-10.5); Carbon Dioxide 26 mmol/L (22-29); Chloride 107 mmol/L (98-107); Globulin 3.5 g/dL (1.3-4.6); Glomerular Filtration Rate 41.8 mL/min (90-130); Glucose 92 mg/dL (65-115); Magnesium 2.1 mg/dL (1.7-2.3); Osmolality Calculated 288 mOsm/kg (285-295); Phosphorus 4.6 mg/dL (2.5-4.5); Potassium 4.2 mmol/L (3.5-5.1); Sodium 141 mmol/L (136-145); Total Bilirubin 0.4 mg/dL (0.15-1.2); Total Protein 6.3 g/dL (6.6-8.7)
[2019-07-09] MEDS: duloxetine 60 mg Capsule PO ×2 (08:51→17:51)
[2019-07-09] MEDS: sennosides-docusate Tablet 2 TAB PO ×2 (08:51→17:51)
[2019-07-09] MEDS: cholecalciferol (vitamin D3) 5,000 unit Tablet 5000 UNIT PO (08:52)
[2019-07-09] MEDS: pantoprazole DR 40 mg Tablet PO (08:52)
[2019-07-09] MEDS: rivaroxaban 10 mg Tablet PO (08:52)
[2019-07-09] MEDS: clopidogrel 75 mg Tablet PO (08:52)
[2019-07-09] MEDS: carvedilol 25 mg Tablet PO ×2 (08:53→17:49)
[2019-07-09] MEDS: sodium chloride 0.9% 1,000 ML 100 ML IV ×2 (12:16→21:29)
--- NOTE | 2019-07-09 14:03 | P.PN_ITS ---
Subjective Subjective: Interval history: This morning patient continues to have pain in her right lower extremity, states that the oxycodone wears off too soon, no fevers, no chills, patient remains bedbound, patient is awaiting skilled nursing placement Vitals/I&O/Wt Last Vital Signs Temp 98.2 F 07/09/19 11:35 Pulse 72 07/09/19 11:35 Resp 16 07/09/19 11:35 BP 115/69 07/09/19 11:35 Pulse Ox 94 07/09/19 11:35 07/08/19 07/09/19 07/09/19 22:59 06:59 14:59 Intake Total 540 / 840 1290 / 2130 480 / 480 Output Total 0 / 1100 700 / 700 Balance 540 / -260 1290 / 1030 -220 / -220 Physical Exam Const: COMMON NORMALS: no apparent distress and oriented x3 GENERAL APPEARANCE: cooperative and comfortable HENMT: COMMON NORMALS: normocephalic HEAD & SCALP: normocephalic Eye: COMMON NORMALS: PERRL and EOMs intact bilaterally GENERAL EYE: normal appearance of both eyes PUPIL: Yes PERRL Neck/C-Spine: COMMON NORMALS: full ROM, no lymphadenopathy, no JVD and thyroid normal THYROID: thyroid normal Lymph: LYMPHATIC: no lymphadenopathy noted Resp: COMMON NORMALS: normal respiratory effort, no retractions, no use of accessory muscles and clear to auscultation bilaterally AUSCULTATION: clear to auscultation bilaterally Cardio: COMMON NORMALS: no JVD, regular rate, regular rhythm, S1 normal heart sound, S2 normal heart sound, no gallops, no clicks and no murmurs RATE: regular rate RHYTHM: regular rhythm HEART SOUNDS: S1 normal and S2 normal GI: COMMON NORMALS: normal to inspection, nondistended, normoactive bowel sounds, soft to palpation, non-tender, no hepatosplenomegaly, no masses and no bruits PALPATION: Yes soft and Yes no hepatosplenomegaly Extremity: COMMON NORMALS: normal to inspection, full ROM, normal capillary refill and no pedal edema NARRATIVE EXTREMITY EXAM: Right leg in an external fixator, surgical site is wrapped and bandaged Neuro: COMMON NORMALS: oriented x3, CN's II-XII intact bilaterally, moves all extremities and no focal motor deficits Psych: COMMON NORMALS: mental status grossly normal, thought process normal and cooperative THOUGHT PROCESS: normal thought process Skin: OTHER: Left lower extremity wrapped in bandage, and external fixator Data : 07/09/19 05:30 07/09/19 05:30 Micro: Microbiology 07/07/19 10:25 Anaerobic Culture - Preliminary Ankle - #1 07/07/19 10:25 Wound Culture - Preliminary Ankle - #1 A&P Assessment and plan (1) Open right trimalleolar fracture: -Secondary to fall, wound was originally contaminated with fecal matter, reduced in the emergency room, status post aggressive surgical debridement and irrigation and external fixator placement on 06/16/2019 -Status post excisional debridement of gangrene right medial leg, and revision of wound VAC right leg postop day 1 -Area of wound VAC has pooling of blood, decreased suctioning, Dr. Kelley will transition to wet-to-dry dressings Plan: -Admit to general medical floors -Given creatinine of 1.3, continue vancomycin, stop Zosyn due to nephrotoxicity concerns, will change to Rocephin and Flagyl -Full code -DVT prophylaxis, Xarelto -pain control oxycodone 07/01/2024 every now 4 hours as needed, tramadol 50 mg every 4 as needed -Patient is considering skilled nursing placement Status: Acute (2) Morbid obesity: Status: Acute (3) CAD (coronary artery disease): -[id number] stent to RCA, and PCI to second obtuse marginal artery on 05/18/2017 -Has been on aspirin and Plavix since April 2017 -According to patient cardiology want to continue dual antiplatelet therapy -Denies any chest pain, no palpitations, no shortness of breath -On last discharge patient was instructed to continue just Xarelto, but she has been taking both aspirin and Plavix -I spoke to Dr. Pelaez he was okay with continuing just Plavix, stop aspirin Plan: -Continue Plavix 75 mg once daily -Continue rosuvastatin 40 mg daily -Continue Xarelto Status: Acute (4) Alcohol abuse: Admits to 3 alcoholic drinks per day, obtain ethanol levels, [facility] protocol Status: Acute (5) Chronic obstructive pulmonary disease, unspecified: Status: Acute (6) Vitamin D deficiency: Status: Acute (7) Essential (primary) hypertension: Monitor blood pressures Status: Acute (8) Anxiety and depression: Continue home lorazepam, duloxetine Status: Acute Additional A&P Information Patient is a full code Xarelto for DVT prophylaxis, Attestations Medical Necessity Statement*: Patient requires hospitalization, for right trim alleolar fracture status post surgical debridement, awaiting skilled nursing placement Coding Level of Care Code Acute Gaming Cashier for [facility] Fwd Diagnoses Open right trimalleolar fracture S82.851B Morbid obesity E66.01 CAD (coronary artery disease) I25.10 Alcohol abuse F10.10 Chronic obstructive pulmonary disease, unspecified J44.9 Vitamin D deficiency E55.9 Essential (primary) hypertension I10 Anxiety and depression F41.9; F32.9
[2019-07-09] MEDS: metroNIDAZOLE IV 500 MG/100 ML PREMIX 100 MG IV ×2 (14:35→21:26)
[2019-07-09 16:09] LABS: Vancomycin Trough 26.7 ug/mL (10-15)
[2019-07-09] MEDS: neomycin-poly-bacitracin oint 28 gm 1 APPLIC TOPICAL (16:58)
[2019-07-09] MEDS: LORazepam 1 mg Tablet PO (17:49)
[2019-07-09] MEDS: budesonide 0.5 mg/2 mL Neb 1 MG INHALATION (20:19)
[2019-07-09] MEDS: cyclobenzaprine 10 mg Tablet PO (21:26)
[2019-07-09] MEDS: atorvastatin 40 mg Tablet 80 MG PO (21:26)
[2019-07-10] VITALS (11 sets, daily range): BP systolic 124–138; BP diastolic 79–88; PULSE 71–81; RESP 16–24; TEMP 36.3–36.9; O2SAT 93–99
[2019-07-10 04:45] LABS: Basophils % 0.2 %; Eosinophils # 0.4 10^3/uL (0.0-0.8); Eosinophils % 4.4 %; Hematocrit 31.3 % (37.0-47.0); Hemoglobin 9.5 g/dL (11.5-15.3); Lymphocytes # 1.6 10^3/uL (0.8-4.8); Lymphocytes % 17.9 %; Mean Corpuscular HGB Conc 30.4 g/dL (30.0-36.0); Mean Corpuscular Volume 92.3 fL (81-99); Mean Platelet Volume 10.6 fL (7.4-10.4); Monocytes # 1.2 10^3/uL (0.2-0.9); Monocytes % 13.3 %; Neutrophils # 5.5 10^3/uL (1.8-7.7); Neutrophils % 63.9 %; Nucleated Red Blood Cells % 0 %; Platelet Count 253 10^3/cmm (130-400); Red Blood Count 3.39 10^6/uL (4.1-5.3); Red Cell Distribution Width 16.5 % (12.1-15.1); White Blood Count 8.7 10^3/uL (4.0-10.0)
[2019-07-10 04:56] LABS: Alanine Aminotransferase 10 U/L (0-33); Albumin Level 2.8 g/dL (3.5-5.2); Alkaline Phosphatase 86 IU/L (35-105); Anion Gap 15.6 (5-19); Aspartate Amino Transferase 25 U/L (0-32); Blood Urea Nitrogen 10 mg/dL (8-23); Calcium 9.4 mg/dL (8.5-10.5); Carbon Dioxide 23 mmol/L (22-29); Chloride 108 mmol/L (98-107); Globulin 3.6 g/dL (1.3-4.6); Glomerular Filtration Rate 32.9 mL/min (90-130); Glucose 91 mg/dL (65-115); Osmolality Calculated 292 mOsm/kg (285-295); Potassium 3.6 mmol/L (3.5-5.1); Sodium 143 mmol/L (136-145); Total Bilirubin 0.5 mg/dL (0.15-1.2); Total Protein 6.4 g/dL (6.6-8.7)
[2019-07-10 04:57] LABS: Vancomycin Random 19.8 ug/mL (20.0-40.0)
[2019-07-10] MEDS: metroNIDAZOLE IV 500 MG/100 ML PREMIX 100 MG IV (05:37)
[2019-07-10] MEDS: cefTRIAXone 1,000 MG in sodium chloride 0.9% (plus) 50 ML 100 MG IV (08:26)
[2019-07-10] MEDS: rivaroxaban 10 mg Tablet PO (08:26)
[2019-07-10] MEDS: carvedilol 25 mg Tablet PO ×2 (08:26→17:29)
[2019-07-10] MEDS: cholecalciferol (vitamin D3) 5,000 unit Tablet 5000 UNIT PO (08:27)
[2019-07-10] MEDS: sennosides-docusate Tablet 2 TAB PO ×2 (08:27→17:29)
[2019-07-10] MEDS: pantoprazole DR 40 mg Tablet PO (08:27)
[2019-07-10] MEDS: duloxetine 60 mg Capsule PO ×2 (08:27→17:29)
[2019-07-10] MEDS: clopidogrel 75 mg Tablet PO (08:27)
[2019-07-10] MEDS: budesonide 0.5 mg/2 mL Neb 1 MG INHALATION ×2 (08:29→20:13)
[2019-07-10] MEDS: HYDROcodone-acetaminophen 5-325 mg Tablet 1 TAB PO ×3 (09:22→20:57)
--- NOTE | 2019-07-10 10:09 | P.PN_ITS ---
Subjective Subjective: Interval history: This morning patient states that her pain is controlled, but oxycodone causes her to feel confused, would like to try something else, no fevers, no chills, no nausea, no vomiting Vitals/I&O/Wt Last Vital Signs Temp 98.2 F 07/10/19 07:58 Pulse 81 07/10/19 08:49 Resp 16 07/10/19 08:49 BP 131/88 07/10/19 07:58 Pulse Ox 96 07/10/19 08:49 07/09/19 07/10/19 07/10/19 22:59 06:59 14:59 Intake Total 1361.667 / 1841.667 240 / 240 Output Total 1250 / 1950 450 / 2400 Balance 111.667 / -108.333 -450 / -558.333 240 / 240 Physical Exam Const: COMMON NORMALS: no apparent distress and oriented x3 GENERAL APPEARANCE: cooperative and comfortable Neck/C-Spine: COMMON NORMALS: full ROM, no lymphadenopathy, no JVD and thyroid normal THYROID: thyroid normal Lymph: LYMPHATIC: no lymphadenopathy noted Resp: COMMON NORMALS: normal respiratory effort, no retractions, no use of accessory muscles and clear to auscultation bilaterally AUSCULTATION: clear to auscultation bilaterally Cardio: COMMON NORMALS: no JVD, regular rate, regular rhythm, S1 normal heart sound, S2 normal heart sound, no gallops, no clicks and no murmurs RATE: regular rate RHYTHM: regular rhythm HEART SOUNDS: S1 normal and S2 normal GI: COMMON NORMALS: normal to inspection, nondistended, normoactive bowel so unds, soft to palpation, non-tender, no hepatosplenomegaly, no masses and no bruits PALPATION: Yes soft and Yes no hepatosplenomegaly Extremity: COMMON NORMALS: normal to inspection, full ROM, normal capillary refill and no pedal edema NARRATIVE EXTREMITY EXAM: Right leg in an external fixator, surgical site is wrapped and bandaged Neuro: COMMON NORMALS: oriented x3 Skin: OTHER: Left lower extremity wrapped in bandage, and external fixator Data : 07/10/19 04:14 07/10/19 04:14 Micro: Microbiology 07/06/19 16:07 Urine Culture - Final Urine,Clean Catch Escherichia coli 07/07/19 10:25 Anaerobic Culture - Preliminary Ankle - #1 07/07/19 10:25 Wound Culture - Preliminary Ankle - #1 A&P Assessment and plan (1) Open right trimalleolar fracture: -Secondary to fall, wound was originally contaminated with fecal matter, reduced in the emergency room, status post aggressive surgical debridement and irrigation and external fixator placement on 06/16/2019 -Status post excisional debridement of gangrene right medial leg, and revision of wound VAC right leg postop day 1 -Area of wound VAC has pooling of blood, decreased suctioning, Dr. Kelley will transition to wet-to-dry dressings Plan: -Admit to general medical floors -Given creatinine of 1.6, de-escalate to oral antibiotics Bactrim and Augmentin, creatinine clearance 69 -Full code -DVT prophylaxis, Xarelto -Switch to Harper 5 every 4 hours, tramadol 50 mg every 4 as needed -Patient is considering senior care placement Status: Acute (2) Morbid obesity: Status: Acute (3) CAD (coronary artery disease): -Srt-[id number]-[id number] stent to RCA, and PCI to second obtuse marginal artery on 05/18/2017 -Has been on aspirin and Plavix since April 2017 -According to patient cardiology want to continue dual antiplatelet therapy -Denies any chest pain, no palpitations, no shortness of breath -On last discharge patient was instructed to continue just Xarelto, but she has been taking both aspirin and Plavix -I spoke to Dr. Pelaez he was okay with continuing just Plavix, stop aspirin Plan: -Continue Plavix 75 mg once daily -Continue rosuvastatin 40 mg daily -Continue Xarelto Status: Acute (4) Alcohol abuse: Admits to 3 alcoholic drinks per day, obtain ethanol levels, CIWA protocol Status: Acute (5) Chronic obstructive pulmonary disease, unspecified: Status: Acute (6) Vitamin D deficiency: Status: Acute (7) Essential (primary) hypertension: Monitor blood pressures Status: Acute (8) Anxiety and depression: Continue home lorazepam, duloxetine Status: Acute (9) Vancomycin-induced nephrotoxicity: -Vancomycin trough as high as 26.7 -Random vancomycin trough this morning 19.8 -Creatinine up to 1.6 -Stop all nephrotoxic agents -We will switch to oral antibiotic regimen -Continue IV fluids Status: Acute Additional A&P Information Patient is a full code Xarelto for DVT prophylaxis, [facility] Medical Necessity Statement*: Requires continued hospitalization for right trimalleolar fracture status post incision and drainage, awaiting senior care placement Coding Level of Care Code Acute Rn Pediatric for [facility] Fwd Diagnoses Open right trimalleolar fracture S82.851B Morbid obesity E66.01 CAD (coronary artery disease) I25.10 Alcohol abuse F10.10 Chronic obstructive pulmonary disease, unspecified J44.9 Vitamin D deficiency E55.9 Essential (primary) hypertension I10 Anxiety and depression F41.9; F32.9 Vancomycin-induced nephrotoxicity N14.1; T36.8X5A
[2019-07-10] MEDS: neomycin-poly-bacitracin oint 28 gm 1 APPLIC TOPICAL ×2 (10:47→17:30)
[2019-07-10] MEDS: amoxicillin-clav 875-125 mg Tablet 1 TAB PO ×2 (10:48→17:29)
[2019-07-10] MEDS: sodium chloride 0.9% 1,000 ML 100 ML IV ×2 (10:48→20:58)
[2019-07-10] MEDS: sulfamethoxazole-trimeth DS 160-800 mg Tablet 1 TAB PO ×2 (10:48→17:29)
[2019-07-10] MEDS: hyDROXYzine 25 mg Capsule 50 MG PO (15:32)
--- NOTE | 2019-07-10 15:55 | P.PN_ITS ---
Subjective Subjective: Interval history: Pain much better. Awaiting placement plan Vitals/I&O/Wt Last Vital Signs Temp 98.4 F 07/10/19 15:30 Pulse 77 07/10/19 15:30 Resp 18 07/10/19 15:30 BP 134/85 07/10/19 15:30 Pulse Ox 98 07/10/19 15:30 07/10/19 07/10/19 07/10/19 06:59 14:59 22:59 Intake Total 1360 / 1360 Output Total 450 / 2400 Balance -450 / -381.899 2713 / 1360 Physical Exam Narrative: EXAM NARRATIVE: Right leg wound with healthy granulation tissue at base. No purulence. No necrotic tissue. Data : 07/10/19 04:14 07/10/19 04:14 Micro: Microbiology 07/06/19 16:07 Urine Culture - Final Urine,Clean Catch Escherichia coli 07/07/19 10:25 Anaerobic Culture - Preliminary Ankle - #1 07/07/19 10:25 Wound Culture - Preliminary Ankle - #1 A&P Assessment and plan (1) Open right trimalleolar fracture: Ankle well aligned and external fixator. External fixator will likely serve as definitive stabilization. Status: Acute (2) Wound of right leg: The patient's wound VAC was personally changed. We will continue with local pin site care and the wound VAC for now. A Status: Acute Attestations Medical Necessity Statement*: Ready for discharge per Ortho Coding Level of Care Code Acute Online Project Manager for [facility] Diagnoses Open right trimalleolar fracture S82.851B Wound of right leg S81.801A
[2019-07-10] MEDS: LORazepam 1 mg Tablet PO (17:29)
[2019-07-10] MEDS: nicotine 21 mg Patch 1 PATCH TRANSDERMA (17:40)
[2019-07-10] MEDS: atorvastatin 40 mg Tablet 80 MG PO (20:57)
[2019-07-10] MEDS: cyclobenzaprine 10 mg Tablet PO (20:57)
[2019-07-11] VITALS (9 sets, daily range): BP systolic 131–150; BP diastolic 79–92; PULSE 68–83; RESP 18–20; TEMP 36.3–36.9; O2SAT 90–98
[2019-07-11] MEDS: ondansetron 2 mg/ML SDV 2 mL 4 MG IVP ×2 (04:27→21:28)
[2019-07-11] MEDS: acetaminophen 325 mg Tablet 650 MG PO (04:27)
[2019-07-11 05:11] LABS: Basophils % 0.2 %; Eosinophils # 0.2 10^3/uL (0.0-0.8); Eosinophils % 2.6 %; Hemoglobin 9.3 g/dL (11.5-15.3); Lymphocytes # 1.2 10^3/uL (0.8-4.8); Lymphocytes % 12.9 %; Mean Corpuscular Hemoglobin 27.4 pg (28.0-34.0); Mean Corpuscular Volume 91.2 fL (81-99); Mean Platelet Volume 10.6 fL (7.4-10.4); Monocytes # 1.1 10^3/uL (0.2-0.9); Monocytes % 11.6 %; Neutrophils # 6.6 10^3/uL (1.8-7.7); Neutrophils % 72.4 %; Nucleated Red Blood Cells % 0 %; Platelet Count 246 10^3/cmm (130-400); Red Cell Distribution Width 16.6 % (12.1-15.1); White Blood Count 9.1 10^3/uL (4.0-10.0)
[2019-07-11 05:24] LABS: Magnesium 2.1 mg/dL (1.7-2.3); Phosphorus 3.8 mg/dL (2.5-4.5)
[2019-07-11 05:40] LABS: Alanine Aminotransferase 9 U/L (0-33); Alkaline Phosphatase 87 IU/L (35-105); Anion Gap 16.8 (5-19); Aspartate Amino Transferase 25 U/L (0-32); Blood Urea Nitrogen 11 mg/dL (8-23); Calcium 8.7 mg/dL (8.5-10.5); Carbon Dioxide 22 mmol/L (22-29); Chloride 107 mmol/L (98-107); Glomerular Filtration Rate 35.4 mL/min (90-130); Glucose 85 mg/dL (65-115); Osmolality Calculated 289 mOsm/kg (285-295); Potassium 3.8 mmol/L (3.5-5.1); Sodium 142 mmol/L (136-145); Total Bilirubin 0.4 mg/dL (0.15-1.2)
--- NOTE | 2019-07-11 07:25 | P.PN_ITS ---
Subjective Subjective: Interval history: Frustrated with perceived lack of nursing help last night. Wants to be discharged Vitals/I&O/Wt Last Vital Signs Temp 97.6 F 07/11/19 04:00 Pulse 83 07/11/19 04:00 Resp 20 H 07/11/19 04:00 BP 139/85 07/11/19 04:00 Pulse Ox 90 07/11/19 04:00 07/10/19 07/11/19 07/11/19 22:59 06:59 14:59 Intake Total 1240 / 2600 240 / 2840 Output Total 800 / 800 Balance 440 / 1800 240 / 2040 Physical Exam Narrative: EXAM NARRATIVE: Wound vac patent. Much less swelling right leg Data : 07/11/19 04:43 07/11/19 04:43 Micro: Microbiology 07/07/19 10:25 Wound Culture - Preliminary Ankle - #1 Gram Negative Rods 07/06/19 16:07 Urine Culture - Final Urine,Clean Catch Escherichia coli A&P Assessment and plan (1) Open right trimalleolar fracture: Ankle well aligned and external fixator. External fixator will likely serve as definitive stabilization. Status: Acute (2) Wound of right leg: The patient's wound VAC was personally changed. We will continue with local pin site care and the wound VAC for now. A Status: Acute Attestations Medical Necessity Statement*: OK for discharge per ortho. Coding Level of Care Code Acute [employer] for [employer] Pool Diagnoses Open right trimalleolar fracture S82.851B Wound of right leg S81.801A
[2019-07-11] MEDS: TRAMadol 50 mg Tablet PO (07:59)
[2019-07-11] MEDS: nicotine 21 mg Patch 1 PATCH TRANSDERMA (08:00)
[2019-07-11] MEDS: amoxicillin-clav 875-125 mg Tablet 1 TAB PO ×2 (08:01→17:21)
[2019-07-11] MEDS: clopidogrel 75 mg Tablet PO (08:01)
[2019-07-11] MEDS: rivaroxaban 10 mg Tablet PO (08:01)
[2019-07-11] MEDS: duloxetine 60 mg Capsule PO ×2 (08:01→17:21)
[2019-07-11] MEDS: sulfamethoxazole-trimeth DS 160-800 mg Tablet 1 TAB PO ×2 (08:02→17:21)
[2019-07-11] MEDS: sennosides-docusate Tablet 2 TAB PO (08:02)
[2019-07-11] MEDS: pantoprazole DR 40 mg Tablet PO (08:02)
[2019-07-11] MEDS: sodium chloride 0.9% 1,000 ML 100 ML IV ×2 (08:02→19:15)
[2019-07-11] MEDS: carvedilol 25 mg Tablet PO ×2 (08:02→17:21)
[2019-07-11] MEDS: cholecalciferol (vitamin D3) 5,000 unit Tablet 5000 UNIT PO (08:02)
[2019-07-11] MEDS: neomycin-poly-bacitracin oint 28 gm 1 APPLIC TOPICAL ×2 (08:04→20:46)
[2019-07-11] MEDS: budesonide 0.5 mg/2 mL Neb 1 MG INHALATION ×2 (08:56→21:01)
--- NOTE | 2019-07-11 14:16 | P.PN_ITS ---
Subjective Subjective: Interval history: Patient has no complaints today, is eager to leave the hospital, she states that she might want to go home if she can have appropriate help at home Vitals/I&O/Wt Last Vital Signs Temp 98.4 F 07/11/19 12:00 Pulse 78 07/11/19 12:00 Resp 18 07/11/19 12:00 BP 133/81 07/11/19 12:00 Pulse Ox 93 07/11/19 12:00 07/10/19 07/11/19 07/11/19 22:59 06:59 14:59 Intake Total 1240 / 2600 1240 / 3840 240 / 240 Output Total 800 / 800 Balance 440 / 1800 1240 / 3040 240 / 240 Physical Exam Const: COMMON NORMALS: no apparent distress and oriented x3 GENERAL APPEARANCE: cooperative and comfortable HENMT: COMMON NORMALS: normocephalic HEAD & SCALP: normocephalic Eye: COMMON NORMALS: PERRL and EOMs intact bilaterally GENERAL EYE: normal appearance of both eyes PUPIL: Yes PERRL Neck/C-Spine: COMMON NORMALS: full ROM, no lymphadenopathy, no JVD and thyroid normal THYROID: thyroid normal Lymph: LYMPHATIC: no lymphadenopathy noted Resp: COMMON NORMALS: normal respiratory effort, no retractions, no use of accessory muscles and clear to auscultation bilaterally AUSCULTATION: clear to auscultation bilaterally Cardio: COMMON NORMALS: no JVD, regular rate, regular rhythm, S1 normal heart sound, S2 normal heart sound, no gallops, no clicks and no murmurs RATE: regular rate RHYTHM: regular rhythm HEART SOUNDS: S1 normal and S2 normal GI: COMMON NORMALS: normal to inspection, nondistended, normoactive bowel sounds, soft to palpation, non-tender, no hepatosplenomegaly, no masses and no bruits PALPATION: Yes soft and Yes no hepatosplenomegaly Extremity: COMMON NORMALS: normal to inspection, full ROM, normal capillary refill and no pedal edema NARRATIVE EXTREMITY EXAM: Right leg in an external fixator, surgical site is wrapped and bandaged Neuro: COMMON NORMALS: oriented x3, CN's II-XII intact bilaterally, moves all extremities and no focal motor deficits Psych: COMMON NORMALS: mental status grossly normal, thought process normal and cooperative THOUGHT PROCESS: normal thought process Skin: OTHER: Left lower extremity wrapped in bandage, and external fixator Data : 07/11/19 04:43 07/11/19 04:43 Micro: Microbiology 07/07/19 10:25 Anaerobic Culture - Preliminary Ankle - #1 07/07/19 10:25 Wound Culture - Preliminary Ankle - #1 Gram Negative Rods 07/06/19 16:07 Urine Culture - Final Urine,Clean Catch Escherichia coli A&P Assessment and plan (1) Open right trimalleolar fracture: -Secondary to fall, wound was originally contaminated with fecal matter, reduced in the emergency room, status post aggressive surgical debridement and irrigation and external fixator placement on 06/16/2019 -Status post excisional debridement of gangrene right medial leg, and revision of wound VAC right leg postop day 4 -Wound VAC is in place Plan: -Admit to general medical floors -Given creatinine of 1.5, de-escalate to oral antibiotics Bactrim and Augmentin, creatinine clearance 69 -Full code -DVT prophylaxis, Xarelto, encourage ambulation as increased risk of DVTs -Switch to [place] 5 every 4 hours, tramadol 50 mg every 4 as needed -Patient [place] [facility] Status: Acute (2) Morbid obesity: Status: Acute (3) CAD (coronary artery disease): -[id number] stent to RCA, and PCI to second obtuse marginal artery on 05/18/2017 -Has been on aspirin and Plavix since April 2017 -According to patient cardiology want to continue dual antiplatelet therapy -Denies any chest pain, no palpitations, no shortness of breath -On last discharge patient was instructed to continue just Xarelto, but she has been taking both aspirin and Plavix -I spoke to Dr. Pelaez he was okay with continuing just Plavix, stop aspirin Plan: -Continue Plavix 75 mg once daily -Continue rosuvastatin 40 mg daily -Continue Xarelto Status: Acute (4) Alcohol abuse: Admits to 3 alcoholic drinks per day, obtain ethanol levels, [place] protocol Status: Acute (5) Chronic obstructive pulmonary disease, unspecified: Status: Acute (6) Vitamin D deficiency: Status: Acute (7) Essential (primary) hypertension: Monitor blood pressures Status: Acute (8) Anxiety and depression: Continue home lorazepam, duloxetine Status: Acute (9) Vancomycin-induced nephrotoxicity: -Vancomycin trough as high as 26.7 -Random vancomycin trough this morning 19.8 -Creatinine proved to 1.5 -Stop all nephrotoxic agents -We will switch to oral antibiotic regimen -Continue IV fluids Status: Acute Additional A&P Information Patient is a full code Xarelto for DVT prophylaxis, Attestations Medical Necessity Statement*: Requires continued hospitalization for open right trimalleolar fracture status post repair, Coding Level of Care Code Acute [employer] for g Fwd Diagnoses Open right trimalleolar fracture S82.851B Morbid obesity E66.01 CAD (coronary artery disease) I25.10 Alcohol abuse F10.10 Chronic obstructive pulmonary disease, unspecified J44.9 Vitamin D deficiency E55.9 Essential (primary) hypertension I10 Anxiety and depression F41.9; F32.9 Vancomycin-induced nephrotoxicity N14.1; T36.8X5A
[2019-07-11] MEDS: HYDROcodone-acetaminophen 5-325 mg Tablet 1 TAB PO ×2 (14:18→23:27)
[2019-07-11] MEDS: hyDROXYzine 25 mg Capsule 50 MG PO (19:14)
[2019-07-11] MEDS: atorvastatin 40 mg Tablet 80 MG PO (20:45)
[2019-07-11] MEDS: cyclobenzaprine 10 mg Tablet PO (20:50)
[2019-07-12] VITALS (8 sets, daily range): BP systolic 144–166; BP diastolic 76–92; PULSE 79–98; RESP 18–22; TEMP 36.5–37; O2SAT 90–96
[2019-07-12 02:14] LABS: Basophils % 0.3 %; Eosinophils # 0.2 10^3/uL (0.0-0.8); Eosinophils % 2.4 %; Hematocrit 30.3 % (37.0-47.0); Hemoglobin 9.2 g/dL (11.5-15.3); Lymphocytes # 1.3 10^3/uL (0.8-4.8); Lymphocytes % 15.1 %; Mean Corpuscular HGB Conc 30.4 g/dL (30.0-36.0); Mean Corpuscular Hemoglobin 28.1 pg (28.0-34.0); Mean Corpuscular Volume 92.7 fL (81-99); Mean Platelet Volume 10.5 fL (7.4-10.4); Monocytes # 1.1 10^3/uL (0.2-0.9); Monocytes % 12.1 %; Neutrophils # 6.2 10^3/uL (1.8-7.7); Neutrophils % 69.9 %; Nucleated Red Blood Cells % 0 %; Platelet Count 236 10^3/cmm (130-400); Red Blood Count 3.27 10^6/uL (4.1-5.3); Red Cell Distribution Width 16.7 % (12.1-15.1); White Blood Count 8.9 10^3/uL (4.0-10.0)
[2019-07-12 02:30] LABS: Magnesium 2.1 mg/dL (1.7-2.3); Phosphorus 3.4 mg/dL (2.5-4.5)
[2019-07-12 02:31] LABS: Alanine Aminotransferase 9 U/L (0-33); Alkaline Phosphatase 90 IU/L (35-105); Anion Gap 15.3 (5-19); Aspartate Amino Transferase 23 U/L (0-32); Blood Urea Nitrogen 10 mg/dL (8-23); Calcium 8.9 mg/dL (8.5-10.5); Carbon Dioxide 22 mmol/L (22-29); Chloride 107 mmol/L (98-107); Globulin 3.2 g/dL (1.3-4.6); Glomerular Filtration Rate 32.9 mL/min (90-130); Glucose 83 mg/dL (65-115); Osmolality Calculated 287 mOsm/kg (285-295); Potassium 3.3 mmol/L (3.5-5.1); Sodium 141 mmol/L (136-145); Total Bilirubin 0.4 mg/dL (0.15-1.2); Total Protein 6.2 g/dL (6.6-8.7)
[2019-07-12] MEDS: sodium chloride 0.9% 1,000 ML 100 ML IV (05:15)
[2019-07-12] MEDS: budesonide 0.5 mg/2 mL Neb 1 MG INHALATION (08:47)
[2019-07-12] MEDS: amoxicillin-clav 875-125 mg Tablet 1 TAB PO (09:08)
[2019-07-12] MEDS: HYDROcodone-acetaminophen 5-325 mg Tablet 1 TAB PO (09:09)
[2019-07-12] MEDS: pantoprazole DR 40 mg Tablet PO (09:09)
[2019-07-12] MEDS: duloxetine 60 mg Capsule PO (09:09)
[2019-07-12] MEDS: rivaroxaban 10 mg Tablet PO (09:09)
[2019-07-12] MEDS: cholecalciferol (vitamin D3) 5,000 unit Tablet 5000 UNIT PO (09:10)
[2019-07-12] MEDS: clopidogrel 75 mg Tablet PO (09:10)
[2019-07-12] MEDS: carvedilol 25 mg Tablet PO (09:10)
[2019-07-12] MEDS: nicotine 21 mg Patch 1 PATCH TRANSDERMA (09:10)
[2019-07-12] MEDS: sulfamethoxazole-trimeth DS 160-800 mg Tablet 1 TAB PO (09:10)
[2019-07-12] MEDS: neomycin-poly-bacitracin oint 28 gm 1 APPLIC TOPICAL (09:11)
--- NOTE | 2019-07-12 10:27 | P.DS_ITS ---
Discharge Providers Date of Admission: 07/06/19 15:42 Date of Discharge: July 12, 2019 Attending Provider at Admission: Luis Daniel Walsh MD Attending Provider at Discharge: Luis Daniel Walsh MD Primary Care Provider: ISABELLE Browne Diagnoses at Discharge Discharge Diagnosis (1) Open right trimalleolar fracture: Status: Acute Problem details: We will begin (2) Morbid obesity: Status: Acute Problem details: -BMI-52 kg/m2 (3) CAD (coronary artery disease): Status: Acute Problem details: -has known hx of CAD with prior stenting -on ASA, plavix, statin (4) Alcohol abuse: Status: Acute Problem details: -Long history of documented chronic alcohol abuse; acutely intoxicated resulting in fall and subsequent right trimalleolar fracture -EtOH level-206 -with timeline since last drink, less likely to experience alcohol withdrawal -CIWA protocol, thiamine/MVI/folate daily -fall/seizure/aspiration precautions -1:1 monitoring no longer required as mental status improved (5) Chronic obstructive pulmonary disease, unspecified: Status: Acute Problem details: -no acute exacerbation -supplemental oxygen as needed -continue to monitor respiratory status (6) Vitamin D deficiency: Status: Acute (7) Essential (primary) hypertension: Status: Acute Problem details: -close monitoring of vital signs -off pressor support as needed to maintain MAP > 65; off IVF hydration -on oral antihypertensives (8) Anxiety and depression: Status: Acute Problem details: -on Ativan, hydroxyzine (9) Vancomycin-induced nephrotoxicity: Status: Acute Reason for Visit Reason for Visit: Reason For Visit: CELLULITIS, TRIMALEOLR FRACTURES Hospital Course Discharge Summary: Zenaida Madsen is a 59 year old female with a past medical history of CAD status post [id number] stent placement to proximal RCA, balloon angioplasty of ostial obtuse marginal on April 2017, alcohol dependence, anxiety depression, COPD, hypertension, hyperglycemia, morbid obesity, hyperlipidemia, vitamin D deficiency, intervertebral disc disorder, recent history of open right trimalleolar fracture status post surgical debridement and irrigation, and external fixator placement who presents to [facility] emergency room from Dr. Kelley's office due to concerns for increased drainage from surgical site, gangrenous changes of skin. Dr. Kelley is planning on doing an irrigation and debridement of surgical site. Patient was admitted for irrigation and debridement of surgical site, open right trimalleolar fracture, had a excisional debridement of gangrene right medial leg, with wound VAC placement, patient tolerated the surgical procedure well, so far surgical cultures have been unremarkable, surgical site looks better every day. Patient was discharged on 10 remaining days of Bactrim and Augmentin, wound VAC in place, physical therapy orders, leg is in the external fixator, instructions for daily calf exercises, continue ambulation, incentive spirometer use daily, Xarelto for DVT prophylaxis given significant immobility, close follow-up with Dr. Kelley as outpatient. Patient during her admission had vancomycin induced nephrotoxicity, vancomycin trough was as high as 26.7, vancomycin was stopped, patient received IV hydration, she had good urine output, creatinine on discharge was 1.6, which is stable for the last couple of days, she has good urine output. Patient was discharged with instructions to drink plenty of electrolyte balance fluids, repeat CMP in 1 week,, avoid nephrotoxic agents. Patient has a history of CAD: -Dqa-[id number]-[id number] stent to RCA, and PCI to second obtuse marginal artery on 05/18/2017 -Has been on aspirin and Plavix since April 2017 -Denies any chest pain, no palpitations, no shortness of breath -On last discharge patient was instructed to continue just Xarelto, but she has been taking both aspirin and Plavix -I spoke to Dr. Pelaez he was okay with continuing just Plavix, stop aspirin -Patient was discharged on instructions to continue Plavix, stop aspirin, is on Xarelto for DVT prophylaxis,repeat CBC in 1 week Physical Exam Const: COMMON NORMALS: no acute distress and patient oriented x3 HENMT: COMMON NORMALS: normocephalic HEAD & SCALP: normocephalic Neck/C-Spine: COMMON NORMALS: no JVD Resp: COMMON NORMALS: normal respiratory effort, No retractions, No use of accessory muscles and clear to auscultation bilaterally AUSCULTATION: clear to auscultation bilaterally Cardio: COMMON NORMALS: no JVD, regular rate, regular rhythm, S1 normal heart sound present and S2 normal heart sound present RATE: regular rate RHYTHM: regular rhythm HEART SOUNDS: S1 normal heart sound present and S2 normal heart sound present GI: COMMON NORMALS: Normal to inspection, nondistended, normoactive bowel sounds present, Soft to palpation, non-tender, No hepatosplenomegaly present, no masses and no bruits PALPATION: Yes Soft to palpation and Yes No hepatosplenomegaly present Neuro: COMMON NORMALS: patient oriented x3 Psych: COMMON NORMALS: mental status grossly normal Discharge Data Data Completed and Pending: Completed Studies During Hospitalization Category Date Time Status XR ankle RT min 3 V* [id number] Routine Exams 07/07/19 Completed XR ankle RT min 3 V* [id number] Stat Exams 07/06/19 15:21 Completed XR chest 1V keisha ble [id number] Routine Exams 07/07/19 07:00 Completed XR foot RT min 3V * [id number] Stat Exams 07/06/19 15:21 Completed Pending at discharge Category Date Time Status Anaerobic Culture Routine Lab 07/07/19 10:25 Results Complete Blood Co unt w/Auto AM LABS Lab 07/13/19 04:00 Ordered Comprehensive Met abolic Panel AM LA BS Lab 07/13/19 04:00 Ordered Magnesium AM LABS Lab 07/13/19 04:00 Ordered Phosphorus AM LAB S Lab 07/13/19 04:00 Ordered Wound Culture [place] Lab 07/07/19 10:25 Results Wound Culture [place] Lab 07/07/19 10:33 Ordered Wound Culture and Gram Stain Routin e Lab 07/07/19 12:14 Ordered Labs from last 24 hours 07/12/19 07/12/19 07/12/19 01:45 01:45 01:45 WBC 8.9 RBC 3.27 L Hgb 9.2 L Hct 30.3 L MCV 92.7 MCH 28.1 MCHC 30.4 RDW 16.7 H Plt Count 236 MPV 10.5 H Neut % (Auto) 69.9 Lymph % (Auto) 15.1 [place] % (Auto) 12.1 Eos % (Auto) 2.4 Baso % (Auto) 0.3 Neut # (Auto) 6.2 Lymph # (Auto) 1.3 [place] # (Auto) 1.1 H Eos # (Auto) 0.2 Baso # (Auto) 0.0 Nucleated RBC % (a uto) 0 Nucleated RBCs # 0.0 Sodium 141 Potassium 3.3 L Chloride 107 Carbon Dioxide 22 Anion Gap 15.3 BUN 10 Creatinine 1.6 H GFR Calculation 32.9 L Glucose 83 Calculated Osmolal ity 287 Calcium 8.9 Phosphorus 3.4 Magnesium 2.1 Total Bilirubin 0.4 AST 23 ALT 9 Alkaline Phosphata se 90 Total Protein 6.2 L Albumin 3.0 L Globulin 3.2 Vitals: Last Vital Signs Temp 98.6 F 07/12/19 08:00 Pulse 92 07/12/19 08:56 Resp 20 H 07/12/19 08:56 BP 148/92 07/12/19 08:00 Pulse Ox 95 07/12/19 08:56 Discharge Plan Discharge Patient Disposition: Home, Self-Care Condition: Stable Prescriptions: New hydrocodone-acetaminophen 5-325 mg Tablet 0.5 tab PO Q6H PRN (Reason: Moderate Pain) 30 Days Qty: 60 RF: 0 clopidogrel 75 mg Tablet 75 mg PO DAILY 30 Days Qty: 30 RF: 0 amoxicillin-pot clavulanate 875-125 mg Tablet 1 tab PO BID 10 Days Qty: 20 RF: 0 sulfamethoxazole-trimethoprim 800-160 mg Tablet 1 tab PO BID 10 Days Qty: 20 RF: 0 nicotine 21 mg/24 hr Patch 24 Hour 1 patch transdermal DAILY 30 Days Qty: 30 RF: 0 Triple Antibiotic 3.5mg-400 unit- 5,000 unit/gram Ointment 1 applic topical BID 30 Days Qty: 28 RF: 0 Continued polyethylene glycol 3350 [Miralax] 17 gram Powder In Packet 17 g PO DAILY Qty: 30 RF: 0 sennosides-docusate sodium 8.6-50 mg Tablet 2 tab PO BID Qty: 120 RF: 0 cyclobenzaprine 10 mg tablet 10 mg PO TID PRN (Reason: Muscle Spasm) Qty: 30 RF: 0 carvedilol 25 mg tablet 25 mg PO BID Qty: 60 RF: 0 albuterol sulfate 2.5 mg /3 mL (0.083 %) solution for nebulization 2.5 mg INHALATION Q6H Qty: 30 RF: 0 hydroxyzine pamoate 50 mg capsule 50 mg PO BID PRN (Reason: Anxiety) Qty: 60 RF: 0 meclizine 25 mg tablet 25 mg PO BID PRN (Reason: Dizziness Or Vertigo) Qty: 30 RF: 0 pantoprazole [Protonix] 40 mg tablet,delayed release (DR/EC) 40 mg PO DAILY 30 Days Qty: 30 RF: 0 lorazepam 1 mg tablet 1 mg PO QPM Qty: 30 RF: 0 rosuvastatin 40 mg tablet 40 mg PO BEDTIME Qty: 30 RF: 0 duloxetine 60 mg capsule,delayed release(DR/EC) 60 mg PO BID Qty: 60 RF: 0 B Complex Plus Vitamin C 68-17-62-5-300 mg capsule 1 cap PO DAILY Qty: 30 RF: 0 budesonide [Pulmicort] 1 mg/2 mL suspension for nebulization 1 mg INHALATION BID Qty: 60 RF: 2 cholecalciferol (vitamin D3) [Vitamin D3] 125 mcg (5,000 unit) Tablet 5,000 unit PO DAILY Qty: 30 RF: 0 rivaroxaban 10 mg tablet 10 mg PO DAILY 30 Days Qty: 30 RF: 0 Held furosemide [Lasix] 20 mg tablet 20 mg PO DAILY Qty: 30 RF: 2 Hold Instructions: Resume on 07/17/19. Discontinued tramadol 50 mg tablet 50 mg PO Q6H PRN (Reason: pain) 8 Days Qty: 30 RF: 0 Triple Antibiotic 3.5mg-400 unit- 5,000 unit/gram Ointment 1 applic topical PRN PRN (Reason: APPLY TO PINS AT DRESSING) Qty: 30 RF: 0 oxycodone-acetaminophen 5-325 mg Tablet 1 tab PO Q4H PRN (Reason: Moderate Pain) Qty: 30 RF: 0 Discharge Orders: Discharge Order (Routine); Ordered 07/12/19 Ordered By: Luis Daniel Walsh Other Ambulatory Orders: Complete Blood Count w/Auto (Routine) Timeframe: 1 Week Location: Determined by Patient Ordered By: Luis Daniel Walsh Comprehensive Metabolic Panel (Routine) Timeframe: 1 Week Facility: [facility] - Location: Lab - Main Lab Ordered By: Luis Daniel Walsh Referrals: Jadiel Munoz FNP-C [Primary Care Provider] - Romeo Kelley MD [Physician] - 07/25/19 9:45 am Discharge Diet: Cardiac Discharge Activity: As per PT/OT instructions Activity Restrictions/Additional Instructions: Strict nonweightbearing right lower extremity Clean pin sites daily with half-strength hydrogen peroxide and cover pin site with Neosporin Wound VAC care per nursing -Please stop aspirin -Continue Plavix 75 mg once daily -Continue Xarelto -For vancomycin induced nephrotoxicity, drink plenty of electrolyte balance fluids -Hold Lasix for 1 week -For pain control use [place] sparingly Discharge Attestations Time Spent in Discharge Care*: less than 30 min Status at Discharge: Cognitive status at discharge: cognitively intact , Behavioral status at discharge: cooperative , Quality Metrics Clinical Quality Measures During this hospital stay, did patient experience: None Coding Level of Care Code Acute Underpresser Hand for Chg Fwd Diagnoses Open right trimalleolar fracture S82.851B Morbid obesity E66.01 CAD (coronary artery disease) I25.10 Alcohol abuse F10.10 Chronic obstructive pulmonary disease, unspecified J44.9 Vitamin D deficiency E55.9 Essential (primary) hypertension I10 Anxiety and depression F41.9; F32.9 Vancomycin-induced nephrotoxicity N14.1; T36.8X5A
== END 2019-07-12 14:00 | disposition home or self-care (01) | DRG 264 ==
LOC: ER 17:13 → MEDSURG 17:13
PROVIDERS: Emergency Medicine; Family Medicine; Orthopaedic Surgery; Admitting Provider Family Medicine; PCP Nurse Practitioner; Visit Provider Family Medicine
PROC: 0JBN0ZZ Excision of Right Lower Leg Subcutaneous Tissue and Fascia, Open Approach (ICD-10-PCS; principal; 2019-07-07 10:45)
DX: I96 Gangrene, not elsewhere classified (principal); S82.851B Displaced trimalleolar fracture of right lower leg, initial encounter for open fracture type I or II; Z68.41 Body mass index [BMI] 40.0-44.9, adult; S81.801A Unspecified open wound, right lower leg, initial encounter; T36.8X5A Adverse effect of other systemic antibiotics, initial encounter; N14.1 Nephropathy induced by other drugs, medicaments and biological substances; F41.8 Other specified anxiety disorders; I10 Essential (primary) hypertension; E55.9 Vitamin D deficiency, unspecified; I25.10 Atherosclerotic heart disease of native coronary artery without angina pectoris; J44.9 Chronic obstructive pulmonary disease, unspecified; F10.10 Alcohol abuse, uncomplicated; E66.01 Morbid (severe) obesity due to excess calories; Z79.82 Long term (current) use of aspirin; Z79.02 Long term (current) use of antithrombotics/antiplatelets; Z95.5 Presence of coronary angioplasty implant and graft; Y92.230 Patient room in hospital as the place of occurrence of the external cause; E78.5 Hyperlipidemia, unspecified; R73.9 Hyperglycemia, unspecified; Z79.01 Long term (current) use of anticoagulants; X58.XXXA Exposure to other specified factors, initial encounter
CPT/HCPCS: 12345; 36415; 36416; 71045; 73610; 73630; 76000; 80053; 80061; 80202; 80306; 80307; 81001; 82962; 83036; 83735; 84100; 85025; 85610; 87040; 87070; 87075; 87077; 87086; 87186; 94640; 94664; 96374; 96375; 97110; 97161; 97166; 97530; 97535; 99282; 99285; J0330; J0696; J2270; J2370; J2405; J2543; J2704; J3010; J3370; J3490; J7030; J7050; J7611; J7626; S0030

== ENCOUNTER → 2019-07-19 11:52 | Outpatient (BNVA) | payer MEDICAID, SELFPAY | PROVIDERS: PCP Nurse Practitioner; Visit Provider Nurse Practitioner | DX: M51.16 Intervertebral disc disorders with radiculopathy, lumbar region (principal); S81.801A Unspecified open wound, right lower leg, initial encounter; X58.XXXA Exposure to other specified factors, initial encounter | CPT/HCPCS: 80053; 85025 ==

== ENCOUNTER 2019-07-20 11:17 | Emergency (ER) | payer MEDICAID, SELFPAY ==
--- NOTE | 2019-07-20 11:21 | W.ED.LOWEXIN ---
HPI - Extremity Injury (Lower) General: Chief Complaint: Extremity Injury, Lower Stated Complaint: RIGHT ANKLE PAIN Time Seen by Provider: 07/20/19 11:20 Source: patient Mode of arrival: ambulatory Limitations: no limitations History of Present Illness: HPI Narrative: Patient had a trimalleolar fracture on June 15 with surgery. Patient had to have a opening of the wound site around 09 July due to an abscess formation. Patient at this time has external fixation of the fracture and has a wound VAC to support drainage of the wound site. Patient states that yesterday she had almost fell in the bathroom and twisted her ankle at that time and then again this morning. Patient reports some increased pain to the area and was concerned for further injury. Patient was brought in by EMS, was given fentanyl 100 mg x 1 for pain along with medication for nausea. A wound VAC is noted in place to the right lower extremity. Some mild swelling is noted to the skin. I reviewed the discharge summary from 11 July which it was noted that patient was to be on Xarelto for prevention of thrombosis. Patient has a history of alcoholism, coronary artery disease, and anxiety disorder. Dr. Kelley was the physician for patient's orthopedic problem. Review of Systems General: Reports: 10 or more systems reviewed and unremarkable except in HPI and below Musc: Reports: extremity pain [facility] PFSH: Medical History (Updated 07/20/19 @ 14:02 by WAN Murphy) Alcohol abuse -Long history of documented chronic alcohol abuse; acutely intoxicated resulting in fall and subsequent right trimalleolar fracture -EtOH level-206 -with timeline since last drink, less likely to experience alcohol withdrawal -CIWA protocol, thiamine/MVI/folate daily -fall/seizure/aspiration precautions -1:1 monitoring no longer required as mental status improved Anxiety and depression -on Ativan, hydroxyzine CAD (coronary artery disease) -has known hx of CAD with prior stenting -on ASA, plavix, statin Chronic obstructive pulmonary disease, unspecified -no acute exacerbation -supplemental oxygen as needed -continue to monitor respiratory status Essential (primary) hypertension -close monitoring of vital signs -off pressor support as needed to maintain MAP > 65; off IVF hydration -on oral antihypertensives Hyperglycemia Intervertebral disc disorder with radiculopathy of lumbar region Mixed hyperlipidemia Morbid obesity -BMI-52 kg/m2 Osteoarthritis, chronic Vitamin D deficiency Surgical History H/O esophagogastroduodenoscopy 05/04/2019: Status post gastric bypass with grade B esophagitis History of 2 sections History of cholecystectomy History of coronary artery stent placement History of gastric bypass History of hysterectomy History of left hip replacement History of right hip replacement Status post colonoscopy with polypectomy 05/04/2019: Descending colon polyp Family History Grandmother Hypertension Mother Hypertension Denies family history of Anesthesia complication Bleeding disorder Cancer Social History (Updated 07/19/19 @ 10:[address]) Smoking and tobacco status: current every day smoker cigarettes Packs smoked per day: 0.5 Second hand smoke exposure: Yes Smoking risk assessment/counseling performed?: Yes Alcohol intake: current Alcohol intake frequency: 3 or more drinks per day Alcohol type: hard liquor Desire information about alcohol rehabilitation?: No Counseling given: No Last alcohol use date: 06/16/19 Desire information about substance/drug rehabilitation?: No Counseling given: No Adopted: No Caregiver/support person: No Lives independently: Yes Household members: significant other Housing: House Marital status: Single Number of children: 3 service: No Current occupational status: unemployed History of recent travel: No Current gender identity: Female Physical Exam Const: COMMON NORMALS: no acute distress and patient oriented x3 GENERAL APPEARANCE: cooperative HENMT: COMMON NORMALS: normocephalic, TM's normal bilaterally and Normal external nose present HEAD & SCALP: normal to inspection and normocephalic NOSE: Normal external nose present TYMPANIC MEMBRANE: TM's normal bilaterally MOUTH: Normal oral and palatal mucosa present THROAT: posterior oropharynx normal Eye: GENERAL EYE: appearance normal, both eyes and all related structures Neck/C-Spine: COMMON NORMALS: full ROM Lymph: LYMPHATIC: no lymphadenopathy noted Chest: COMMONS NORMALS: normal inspection of the chest Resp: COMMON NORMALS: normal respiratory effort EFFORT & INSPECTION: Yes able to speak in complete sentences Cardio: COMMON NORMALS: regular rate and regular rhythm RATE: regular rate RHYTHM: regular rhythm GI: COMMON NORMALS: non-tender : COMMON NORMALS: Yes no CVA tenderness BLADDER/KIDNEY EXAM: Yes no CVA tenderness Back/Pelvis: COMMON NORMALS: no CVA tenderness and thoracic and lumbar spine normal to inspection Extremity: NARRATIVE EXTREMITY EXAM: External fixation apparatus is intact to the right lower extremity. Mild edema and redness is noted to the extremity. Distal pulses intact. Prompt capillary refill is noted. Neuro: COMMON NORMALS: patient oriented x3 and moves all extremities Psych: COMMON NORMALS: mental status grossly normal and cooperative Skin: COMMON NORMALS: no rashes or lesions noted GENERAL SKIN EXAM: no rashes or lesions noted Course Vital Signs: Vital signs: Vital Signs Temperature 97.6 F 07/20/19 11:27 Pulse Rate 76 07/20/19 11:55 Respiratory Rate 18 07/20/19 11:55 Blood Pressure 147/90 07/20/19 11:55 Pulse Oximetry 94 07/20/19 12:39 MDM - Extremity Injury (Lower) MDM Narrative: Medical decision making narrative: Patient comes in today for concerns of twisting her broken leg and worried that she may have reinjured it. Exam noted external fixation of the injured extremity. Pulses were intact. Some mild swelling was noted to the leg with minimal redness. Patient has a wound VAC to the area. Vital signs were normal without any abnormalities. Patient did report occasional shortness of breath at home. Differential diagnosis includes strain, fracture, DVT, PE, routine healing, malingering. Laboratory values noted some anemia. Creatinine was 1.1. Chest x-ray was negative. X-ray of the right lower extremity noted no changes or significance from previous x-ray. CT scan of the chest for PE noted no pulmonary embolism however did note some mild atelectasis in the right lower field. Believe the atelectasis is probably due to patient's immobility. Patient will continue her antibiotics as directed which she is taking. Patient should continue routine medications. Patient reported understanding agreed to plan. Patient reports understanding of need to return to ER. Lab Data: Labs: Lab Results 07/20/19 07/20/19 07/20/19 Range/Units 11:38 11:38 11:38 WBC 9.9 (4.0-10.0) 10^3/ uL RBC 3.90 L (4.1-5.3) 10^6/u L Hgb 10.5 L (11.5-15.3) g/dL Hct 34.5 L (37.0-47.0) % MCV 88.5 (81-99) fL MCH 26.9 L (28.0-34.0) pg MCHC 30.4 (30.0-36.0) g/dL RDW 17.0 H (12.1-15.1) % Plt Count 350 (130-400) 10^3/c mm MPV 9.9 (7.4-10.4) fL Neut % (Auto) 71.2 % Lymph % (Auto) 16.3 % Chester % (Auto) 9.1 % Eos % (Auto) 2.5 % Baso % (Auto) 0.5 % Neut # (Auto) 7.0 (1.8-7.7) 10^3/u L Lymph # (Auto) 1.6 (0.8-4.8) 10^3/u L Chester # (Auto) 0.9 (0.2-0.9) 10^3/u L Eos # (Auto) 0.3 (0.0-0.8) 10^3/u L Baso # (Auto) 0.1 (0.0-0.1) 10^3/u L Nucleated RBC % (a uto) 0 % Nucleated RBCs # 0.0 /100WBC D-Dimer 1.85 H (0-0.59) ug/mIFE U Sodium 138 (136-145) mmol/L Potassium 4.6 (3.5-5.1) mmol/L Chloride 103 (98-107) mmol/L Carbon Dioxide 25 (22-29) mmol/L Anion Gap 14.6 (5-19) BUN 7 L (8-23) mg/dL Creatinine 1.1 H (0.5-0.9) mg/dL GFR Calculation 50.7 L (90-130) mL/min Glucose 103 (65-115) mg/dL Calculated Osmolal ity 282 L (285-295) mOsm/k g Calcium 10.1 (8.5-10.5) mg/dL Total Bilirubin 0.3 (0.15-1.2) mg/dL AST 38 H (0-32) U/L ALT 18 (0-33) U/L Alkaline Phosphata se 170 H (35-105) IU/L Total Protein 7.3 (6.6-8.7) g/dL Albumin 3.3 L (3.5-5.2) g/dL Globulin 4.0 (1.3-4.6) g/dL Ethyl Alcohol (0-10) mg/dL 07/20/19 Range/Units 11:38 WBC (4.0-10.0) 10^3/ uL RBC (4.1-5.3) 10^6/u L Hgb (11.5-15.3) g/dL Hct (37.0-47.0) % MCV (81-99) fL MCH (28.0-34.0) pg MCHC (30.0-36.0) g/dL RDW (12.1-15.1) % Plt Count (130-400) 10^3/c mm MPV (7.4-10.4) fL Neut % (Auto) % Lymph % (Auto) % Chester % (Auto) % Eos % (Auto) % Baso % (Auto) % Neut # (Auto) (1.8-7.7) 10^3/u L Lymph # (Auto) (0.8-4.8) 10^3/u L Chester # (Auto) (0.2-0.9) 10^3/u L Eos # (Auto) (0.0-0.8) 10^3/u L Baso # (Auto) (0.0-0.1) 10^3/u L Nucleated RBC % (a uto) % Nucleated RBCs # /100WBC D-Dimer (0-0.59) ug/mIFE U Sodium (136-145) mmol/L Potassium (3.5-5.1) mmol/L Chloride (98-107) mmol/L Carbon Dioxide (22-29) mmol/L Anion Gap (5-19) BUN (8-23) mg/dL Creatinine (0.5-0.9) mg/dL GFR Calculation (90-130) mL/min Glucose (65-115) mg/dL Calculated Osmolal ity (285-295) mOsm/k g Calcium (8.5-10.5) mg/dL Total Bilirubin (0.15-1.2) mg/dL AST (0-32) U/L ALT (0-33) U/L Alkaline Phosphata se (35-105) IU/L Total Protein (6.6-8.7) g/dL Albumin (3.5-5.2) g/dL Globulin (1.3-4.6) g/dL Ethyl Alcohol < 10 (0-10) mg/dL Discharge Plan Discharge Patient Disposition: Home, Self-Care Clinical Impression: Leg pain, right Open right trimalleolar fracture Qualifiers: Encounter type: subsequent encounter Open fracture type: open type III Fracture healing: with routine healing Qualified Code(s): S82.851F - Displaced trimalleolar fracture of right lower leg, subsequent encounter for open fracture type IIIA, IIIB, or IIIC with routine healing Dyspnea Qualifiers: Dyspnea type: unspecified Qualified Code(s): R06.00 - Dyspnea, unspecified Condition: Stable Prescriptions: No Action duloxetine 60 mg capsule,delayed release(DR/EC) 60 mg PO BID Qty: 60 RF: 2 sennosides-docusate sodium 8.6-50 mg Tablet 2 tab PO BID Qty: 120 RF: 0 cyclobenzaprine 10 mg tablet 10 mg PO TID PRN (Reason: Muscle Spasm) Qty: 30 RF: 0 carvedilol 25 mg tablet 25 mg PO BID Qty: 60 RF: 0 albuterol sulfate 2.5 mg /3 mL (0.083 %) solution for nebulization 2.5 mg INHALATION Q6H Qty: 30 RF: 0 hydroxyzine pamoate 50 mg capsule 50 mg PO BID PRN (Reason: Anxiety) Qty: 60 RF: 0 meclizine 25 mg tablet 25 mg PO BID PRN (Reason: Dizziness Or Vertigo) Qty: 30 RF: 0 pantoprazole [Protonix] 40 mg tablet,delayed release (DR/EC) 40 mg PO DAILY 30 Days Qty: 30 RF: 0 furosemide [Lasix] 20 mg tablet 20 mg PO DAILY Qty: 30 RF: 2 Hold Instructions: Resume on 07/17/19. rosuvastatin 40 mg tablet 40 mg PO BEDTIME Qty: 30 RF: 0 B Complex Plus Vitamin C 32-83-96-5-300 mg capsule 1 cap PO DAILY Qty: 30 RF: 0 budesonide [Pulmicort] 1 mg/2 mL suspension for nebulization 1 mg INHALATION BID Qty: 60 RF: 2 cholecalciferol (vitamin D3) [Vitamin D3] 125 mcg (5,000 unit) Tablet 5,000 unit PO DAILY Qty: 30 RF: 0 hydrocodone-acetaminophen 5-325 mg Tablet 0.5 tab PO Q6H PRN (Reason: Moderate Pain) 30 Days Qty: 60 RF: 0 clopidogrel 75 mg Tablet 75 mg PO DAILY 30 Days Qty: 30 RF: 0 amoxicillin-pot clavulanate 875-125 mg Tablet 1 tab PO BID 10 Days Qty: 20 RF: 0 Triple Antibiotic 3.5mg-400 unit- 5,000 unit/gram Ointment 1 applic topical BID 30 Days Qty: 28 RF: 0 sulfamethoxazole-trimethoprim 800-160 mg Tablet 1 tab PO BID 10 Days Qty: 20 RF: 0 nicotine 21 mg/24 hr Patch 24 Hour 1 patch transdermal DAILY 30 Days Qty: 30 RF: 0 rivaroxaban 10 mg tablet 10 mg PO DAILY 30 Days Qty: 30 RF: 0 Celebrex 200 mg Capsule 200 mg PO BID RF: 0 gabapentin 300 mg Capsule See Rx Instructions .ROUTE .COMPLEX RF: 0 lisinopril 40 mg Tablet 40 mg PO DAILY RF: 0 Discharge Orders: Discharge Order (Routine); Ordered 07/20/19 Ordered By: Claudy Driver Referrals: Jadiel Munoz, ISABELLE [Primary Care Provider] - Discharge Diet: Usual diet Discharge Activity: Limit activity as instructed Activity Restrictions/Additional Instructions: Activity as directed. Continue routine medications as ordered. Remember to take deep breaths and cough every 2 hours. Use incentive spirometer if ordered. Complete antibiotics as ordered. Return to the ER for increased chest pain or fever. Follow-up with primary care and orthopedist as scheduled. Coding Level of Care Code ED Records Management Analyst for [facility] Exam Comprehensive
--- NOTE | 2019-07-20 11:26 | XR_ITS ---
WS: [id number] CHEST XRAY TECHNIQUE: Portable chest. CLINICAL INFORMATION: short of breath COMPARISON: July 07, 2019 FINDINGS: Heart: Cardiomegaly. Lungs: Lungs are clear. No consolidation or pleural effusion. Chronic emphysematous changes. Bones: Normal visualized bony structures. XR/XR chest 1V portable [id number] IMPRESSION: No acute chest findings
--- NOTE | 2019-07-20 11:26 | XR_ITS ---
WS: [id number] TIBIA-FIBULA RIGHT TECHNIQUE: 2 views of the right tibia-fibula CLINICAL INFORMATION: twisted, recent surgery COMPARISON: July 07, 2019 FINDINGS: External fixators with traction device. In place and unchanged. Comminuted fractures involving the di stal fibula and medial malleolus appear stable. Stable anterior tibial plafond and posterior malleola r fractures. Soft tissue edema. XR/XR tibia fibula RT 2V [id number] IMPRESSION: Stable external fixator with distal fibula and medial malleolar comminuted frac tures. Slightly displaced anterior tibial plafond and posterior malleolar fract ures unchanged.
[2019-07-20 11:27] VITALS: BP 160/95; PULSE 71; RESP 18; TEMP 36.4; O2SAT 95; BMI 44.1
[2019-07-20 11:30] VITALS: O2SAT 95
[2019-07-20 11:48] LABS: Basophils # 0.1 10^3/uL (0.0-0.1); Basophils % 0.5 %; Eosinophils # 0.3 10^3/uL (0.0-0.8); Eosinophils % 2.5 %; Hematocrit 34.5 % (37.0-47.0); Hemoglobin 10.5 g/dL (11.5-15.3); Lymphocytes # 1.6 10^3/uL (0.8-4.8); Lymphocytes % 16.3 %; Mean Corpuscular HGB Conc 30.4 g/dL (30.0-36.0); Mean Corpuscular Hemoglobin 26.9 pg (28.0-34.0); Mean Corpuscular Volume 88.5 fL (81-99); Mean Platelet Volume 9.9 fL (7.4-10.4); Monocytes # 0.9 10^3/uL (0.2-0.9); Monocytes % 9.1 %; Neutrophils % 71.2 %; Nucleated Red Blood Cells % 0 %; Platelet Count 350 10^3/cmm (130-400); White Blood Count 9.9 10^3/uL (4.0-10.0)
[2019-07-20 11:55] VITALS: BP 147/90; PULSE 76; RESP 18; O2SAT 96
--- NOTE | 2019-07-20 11:55 | PC.NURSE ---
Assisted patient from bed to bedside commode with a walker, once placed on the bedside commode patient became pale and nauseous. I quickly grabbed a nurse to assist. Patient did recover enough to transfer back over to the bed and again became pale and nauseous. The nurse tilted the head of bed back to help her blood flow. Patient's nurse and physician were notified and vitals were taken to ensure that she was stable.
[2019-07-20 12:01] LABS: D Dimer 1.85 ug/mIFEU (0-0.59)
[2019-07-20 12:05] LABS: Alanine Aminotransferase 18 U/L (0-33); Albumin Level 3.3 g/dL (3.5-5.2); Alkaline Phosphatase 170 IU/L (35-105); Anion Gap 14.6 (5-19); Aspartate Amino Transferase 38 U/L (0-32); Blood Urea Nitrogen 7 mg/dL (8-23); Calcium 10.1 mg/dL (8.5-10.5); Carbon Dioxide 25 mmol/L (22-29); Chloride 103 mmol/L (98-107); Glomerular Filtration Rate 50.7 mL/min (90-130); Glucose 103 mg/dL (65-115); Osmolality Calculated 282 mOsm/kg (285-295); Potassium 4.6 mmol/L (3.5-5.1); Sodium 138 mmol/L (136-145); Total Bilirubin 0.3 mg/dL (0.15-1.2); Total Protein 7.3 g/dL (6.6-8.7)
--- NOTE | 2019-07-20 12:11 | CT_ITS ---
WS: [id number] CTA OF THE CHEST WITH PULMONARY EMBOLISM PROTOCOL TECHNIQUE: High-resolution contrast enhanced CTA of the chest with coronal and sagittal reformatted i mages with pulmonary embolism protocol. MIP images are also reviewed. CLINICAL INFORMATION: sob, elevated d dimer COMPARISON: CTA March 10, 2019 DLP: 1728.[address] scans at [facility] use at least one of these dose optimization techniques: automat ed exposure control; mA and/or kV adjustment per patient size (includes targeted exams where dose is matched to clinical indication); or iterative reconstruction. FINDINGS: Proximal main pulmonary arteries are normal. No evidence of pulmonary embolus. Normal caliber thoraci c aorta. No mediastinal or hilar lymphadenopathy. Coronary calcification. No axillary lymphadenopath y. Small right pleural effusion. Compressive right lung base. This is new from previous. Recommend corre lation right lower lobe pneumonia. Left lung is well aerated. Slight atelectasis left lower lobe. Diffuse fatty infiltration of the liver. Cholecystectomy. Postoperative changes gastric bypass. Lela l spleen. Fatty atrophy of the pancreas. Adrenal glands are normal. CT/CT angio chest PE protcl [id number] IMPRESSION: 1. No evidence of pulmonary embolus. 2. Small right pleural effusion with compressive atelectasis right lower lobe. Recommend correlation for right lower lobe pneumonia. This is new from previou s. 3. Slight atelectasis left lung base. 4. Prior cholecystectomy. 5. Postoperative gastric bypass.
[2019-07-20 12:14] LABS: Alcohol Level < 10 mg/dL (0-10)
[2019-07-20] MEDS: morphine 4 mg/mL SDV 1 mL 2 MG IVP (12:33)
[2019-07-20 12:39] VITALS: O2SAT 94
[2019-07-20] MEDS: iodixanol 320 mg/mL 100mL Btl IV ×2 (12:54→12:58)
[2019-07-20 14:32] VITALS: BP 133/82; PULSE 75; RESP 20; O2SAT 93
== END 2019-07-20 14:32 | disposition home or self-care (01) ==
PROVIDERS: Emergency Provider Nurse Practitioner Family; PCP Nurse Practitioner
DX: S82.851C Displaced trimalleolar fracture of right lower leg, initial encounter for open fracture type IIIA, IIIB, or IIIC (principal); R06.00 Dyspnea, unspecified; Z79.02 Long term (current) use of antithrombotics/antiplatelets; X58.XXXA Exposure to other specified factors, initial encounter; I25.10 Atherosclerotic heart disease of native coronary artery without angina pectoris; J44.9 Chronic obstructive pulmonary disease, unspecified; I10 Essential (primary) hypertension; E78.2 Mixed hyperlipidemia; F17.210 Nicotine dependence, cigarettes, uncomplicated
CPT/HCPCS: 12345; 71045; 71275; 73590; 80053; 80307; 85025; 85378; 96374; 96375; 99282; 99283; 99284; J2270; Q9967

== ENCOUNTER 2019-07-26 15:03 | Outpatient (CLI) | payer MEDICAID, SELFPAY | END 2019-07-26 15:04 | disposition home or self-care (01) | LOC: WOUND 15:05 | PROVIDERS: PCP Nurse Practitioner; Visit Provider Nurse Practitioner Family | DX: T81.31XA Disruption of external operation (surgical) wound, not elsewhere classified, initial encounter (principal); Y83.8 Other surgical procedures as the cause of abnormal reaction of the patient, or of later complication, without mention of misadventure at the time of the procedure | CPT/HCPCS: 11042; 97605 ==

== ENCOUNTER 2019-07-31 13:35 | Outpatient (CLI) | payer MEDICARE, MEDICAID, SELFPAY | END 2019-07-31 13:36 | disposition home or self-care (01) | PROVIDERS: PCP Nurse Practitioner; Visit Provider Nurse Practitioner Family | DX: T81.31XA Disruption of external operation (surgical) wound, not elsewhere classified, initial encounter (principal); Y83.8 Other surgical procedures as the cause of abnormal reaction of the patient, or of later complication, without mention of misadventure at the time of the procedure; S81.812A Laceration without foreign body, left lower leg, initial encounter; X58.XXXA Exposure to other specified factors, initial encounter | CPT/HCPCS: 11042; 11045; 97605 ==

== ENCOUNTER 2019-08-07 10:32 | Outpatient (CLI) | payer MEDICARE, MEDICAID, SELFPAY | END 2019-08-07 10:33 | disposition home or self-care (01) | LOC: WOUND 10:33 | PROVIDERS: PCP Nurse Practitioner; Visit Provider Nurse Practitioner Family | DX: T81.89XA Other complications of procedures, not elsewhere classified, initial encounter (principal); Y83.8 Other surgical procedures as the cause of abnormal reaction of the patient, or of later complication, without mention of misadventure at the time of the procedure | CPT/HCPCS: 97605; 99214 ==

== ENCOUNTER → 2019-08-08 08:14 | Outpatient (BNVA) | payer MEDICARE, MEDICAID, SELFPAY | PROVIDERS: PCP Nurse Practitioner; Visit Provider Orthopaedic Surgery | DX: S82.851A Displaced trimalleolar fracture of right lower leg, initial encounter for closed fracture (principal); S82.851B Displaced trimalleolar fracture of right lower leg, initial encounter for open fracture type I or II; X58.XXXA Exposure to other specified factors, initial encounter | CPT/HCPCS: 73610 ==

== ENCOUNTER 2019-08-14 10:17 | Outpatient (CLI) | payer MEDICARE, MEDICAID, SELFPAY | END 2019-08-14 10:18 | disposition home or self-care (01) | LOC: WOUND 10:19 | PROVIDERS: PCP Nurse Practitioner; Visit Provider Nurse Practitioner Family | DX: T81.89XA Other complications of procedures, not elsewhere classified, initial encounter (principal) | CPT/HCPCS: 97605 ==

== ENCOUNTER 2019-08-16 09:58 | Day surgery (SDC) | payer MEDICARE, MEDICAID, SELFPAY ==
[2019-08-15 12:54] VITALS: BMI 44.1
[2019-08-16] VITALS (7 sets, daily range): BP systolic 109–142; BP diastolic 62–86; PULSE 66–84; RESP 12–20; TEMP 36.6–37.1; O2SAT 93–100
--- NOTE | 2019-08-16 11:08 | P.ANESASSM_ITS ---
Pre-Anesthetic Assessment Pre-Anesthetic Assessment: Height/Weight: Height 1.63 m Weight 116.573 kg Preop Diagnosis: Failing wound VAC right leg Proposed Procedure: Operation Date: 08/16/19 11:45 Proposed Procedures p Removal of external fixator S82.851F(Right) - Romeo Kelley MD Social: Social History: Alcohol (daily) and Tobacco Exam: Pre-Anes Outpt Exam: alert, oriented x 3, clear to auscultation bilaterally and regular rate & rhythm History/ROS: No significant history except as noted Pulmonary: Pulmonary: COPD and MCKEON CV/HEM: CV/HEM: CAD (2001), HTN and RI : : None reported Hepatic: Hepatic: None reported GI: GI: GERD (controlled) and Hiatus hernia Metabolic: Metabolic: Hyperlipidemia and Morbid obesity Musc/skel: Musc/skel: OA/DJD Neuropsych: Neuropsych: Anxiety and Depression Anesthetic Plan: ASA status: 3 Anesthesia: Anesthesia Evaluation and General Risk of > 500 ml blood loss (7ml/kg in children): No PFSH Anesthesia PFSH: Medical History Alcohol abuse -Long history of documented chronic alcohol abuse; acutely intoxicated re sulting in fall and subsequent right trimalleolar fracture -EtOH level-206 -with timeline since last drink, less likely to experience alcohol withdrawal -CIWA protocol, thiamine/MVI/folate daily -fall/seizure/aspiration precautions -1:1 monitoring no longer required as mental status improved Anxiety and depression CAD (coronary artery disease) -has known hx of CAD with prior stenting -on ASA, plavix, statin Chronic obstructive pulmonary disease, unspecified Essential (primary) hypertension Hyperglycemia Intervertebral disc disorder with radiculopathy of lumbar region Mixed hyperlipidemia Morbid obesity -BMI-52 kg/m2 Osteoarthritis, chronic Vitamin D deficiency Surgical History H/O esophagogastroduodenoscopy 05/04/2019: Status post gastric bypass with grade B esophagitis History of 2 sections History of cholecystectomy History of coronary artery stent placement History of gastric bypass History of hysterectomy History of left hip replacement History of right hip replacement Status post colonoscopy with polypectomy 05/04/2019: Descending colon polyp Family History Grandmother Hypertension Mother Hypertension Denies family history of Anesthesia complication Bleeding disorder Cancer Social History Smoking and tobacco status: current every day smoker cigarettes Packs smoked per day: 0.5 Second hand smoke exposure: Yes Smoking risk assessment/counseling performed?: Yes Alcohol intake: current Alcohol intake frequency: 3 or more drinks per day Alcohol type: hard liquor Desire information about alcohol rehabilitation?: No Counseling given: No Last alcohol use date: 06/16/19 Desire information about substance/drug rehabilitation?: No Counseling given: No Adopted: No Caregiver/support person: No Lives independently: Yes Household members: significant other Housing: House Marital status: Single Number of children: 3 service: No Current occupational status: unemployed History of recent travel: No Current gender identity: Female Data Anesthesia Cardiac Studies: No Data to Display
--- NOTE | 2019-08-16 11:20 | W.PM.OPSUD ---
Surgery/Procedure H&P Update DATE OF PROCEDURE: August 16, 2019 DATE H&P PERFORMED: 04/14/19 PREOP DIAGNOSIS: Failing wound VAC right leg PLANNED PROCEDURE: Operation Date: 08/16/19 11:45 Proposed Procedures p Removal of external fixator 42941 S82.851F(Right) - Romeo Kelley MD
[2019-08-16] MEDS: sodium chloride 0.9% 1,000 ML 30 ML IV (11:25)
--- NOTE | 2019-08-16 11:51 | PM.OP ---
Operative Report Date of procedure: August 16, 2019 Pre-op Diagnosis: External fixator right leg Post-op diagnosis: same Post-op Findings: Same Procedure Done: Removal external fixator right leg Implants: None Pathology: none sent Anesthesia: General Estimated blood loss (mL): 5 Findings: External fixator pin sites appeared clean. The tibial pins were well fixed. Tibial pin was relatively loose Condition: stable Disposition: PACU Brief History: Ms. Madsen is a 59-year-old female who underwent irrigation debridement and external fixator placement for a open right ankle fracture 2 months ago. She has shown evidence of early healing in the external fixator is to removed today sufficient stability is felt to allow ongoing healing. Do to a large medial wound the patient is not a candidate for definitive open reduction internal fixation and the fracture will be treated in a boot until further union Procedure: Patient was taken to the operating room and given a general anesthesia. Crossbars were removed. A power drill was used to remove the 2 proximal half pins. Calcaneal pin was cut flush with the skin with bolt cutters over the medial skin. The end of the pin was cleaned with Betadine and the pin removed from the lateral calcaneus manually. 0 dressings were applied and the patient was placed in a postop boot.
== END 2019-08-16 12:50 | disposition home or self-care (01) ==
PROVIDERS: PCP Nurse Practitioner; Visit Provider Orthopaedic Surgery
PROC: (CPT 20694; principal; 2019-08-16 11:25)
DX: Z47.2 Encounter for removal of internal fixation device (principal); J44.9 Chronic obstructive pulmonary disease, unspecified; I25.10 Atherosclerotic heart disease of native coronary artery without angina pectoris; I10 Essential (primary) hypertension; I25.2 Old myocardial infarction; K21.9 Gastro-esophageal reflux disease without esophagitis; M19.90 Unspecified osteoarthritis, unspecified site; E66.01 Morbid (severe) obesity due to excess calories; Z68.41 Body mass index [BMI] 40.0-44.9, adult; E78.2 Mixed hyperlipidemia; F17.210 Nicotine dependence, cigarettes, uncomplicated
CPT/HCPCS: 20694; 12345; J2001; J2250; J2704; J3010; J7030

== ENCOUNTER 2019-08-21 10:44 | Outpatient (CLI) | payer MEDICARE, MEDICAID, SELFPAY | END 2019-08-21 10:45 | disposition home or self-care (01) | LOC: WOUND 10:45 | PROVIDERS: PCP Nurse Practitioner; Visit Provider Nurse Practitioner Family | DX: T81.89XA Other complications of procedures, not elsewhere classified, initial encounter (principal); Y83.8 Other surgical procedures as the cause of abnormal reaction of the patient, or of later complication, without mention of misadventure at the time of the procedure | CPT/HCPCS: 11042 ==

== ENCOUNTER 2019-08-28 13:23 | Outpatient (CLI) | payer MEDICARE, MEDICAID, SELFPAY | END 2019-08-28 13:24 | disposition home or self-care (01) | LOC: WOUND 13:26 | PROVIDERS: PCP Nurse Practitioner; Visit Provider Nurse Practitioner Family | DX: T81.89XA Other complications of procedures, not elsewhere classified, initial encounter (principal); Y83.8 Other surgical procedures as the cause of abnormal reaction of the patient, or of later complication, without mention of misadventure at the time of the procedure | CPT/HCPCS: 11042 ==

== ENCOUNTER → 2019-08-31 14:41 | Outpatient (BNVA) | payer MEDICARE, MEDICAID, SELFPAY | PROVIDERS: PCP Nurse Practitioner; Visit Provider Orthopaedic Surgery | DX: Z98.890 Other specified postprocedural states (principal); S82.851 Displaced trimalleolar fracture of right lower leg; X58.XXXD Exposure to other specified factors, subsequent encounter | CPT/HCPCS: 73610 ==

== ENCOUNTER 2019-09-04 09:58 | Outpatient (CLI) | payer MEDICARE, MEDICAID, SELFPAY | END 2019-09-04 09:59 | disposition home or self-care (01) | LOC: WOUND 09:59 | PROVIDERS: PCP Nurse Practitioner; Visit Provider Surgery | DX: Z51.89 Encounter for other specified aftercare (principal) | CPT/HCPCS: G0463 ==

== ENCOUNTER 2019-09-13 20:30 | Emergency (ER) | payer MEDICARE, MEDICAID, SELFPAY ==
[2019-09-13 20:39] VITALS: BP 171/100; PULSE 105; RESP 22; TEMP 36.6; O2SAT 94; BMI 44.1
--- NOTE | 2019-09-13 20:47 | W.ED.EXTPRO ---
HPI - Extremity Problem General: Chief complaint: Extremity Injury, Lower Stated complaint: LEG INFECTION Time Seen by Provider: 09/13/19 20:41 History of Present Illness: HPI Narrative: Patient is a 59-year-old female comes to the ED for possible infection of her right leg. Patient had an open trimalleolar right ankle fracture back on 06/15 and surgery was performed and the fracture was fixed with no complications. Approximately 2 weeks post surgery she started developing infection in the right leg. On 07/05 patient had gangrene on the right leg and the decision was made to do bride and irrigate wound and then she was placed on a wound VAC in wound care was following. Wound healing has been going well and her last appointment with wound clinic was approximately a week ago. They examined the wound and leg and there was no signs of infection. Patient says that yesterday she started getting redness on skin just below her right knee and it has since progressed down towards her foot. She is also having increased pain in the right leg. She decided to come to the ED for evaluation of the leg. Patient is not currently on any antibiotic. Denies any fevers but does say she has had a lot of sweats and has had a productive cough as well for the past couple days. Associated symptoms: Deny chest pain, fever(s) or rash Review of Systems Const: Reports: diaphoresis; Denies: fever(s), chills or fatigue Eyes: Denies: change in vision or eye discomfort ENMT: Denies: throat pain, odynophagia, nasal discharge or nasal congestion Card: Denies: chest pain, palpitations, edema, swelling of feet/ankles, dyspnea on exertion or orthopnea Resp: Reports: productive cough; Denies: dyspnea or non-productive cough GI: Denies: abdominal pain, nausea, vomiting, diarrhea, constipation or hematochezia : Denies: flank pain, dysuria or hematuria Musc: Denies: neck pain, back pain or extremity swelling Skin/Breast: Reports: new lesions (Tender warm and red rash that is developing on right leg and it is progressing.); Denies: rash Neuro: Denies: headache(s), numbness in extremities or weakness in extremities [facility] ED PFSH: Medical History Alcohol abuse -Long history of documented chronic alcohol abuse; acutely intoxicated resulting in fall and subsequent right trimalleolar fracture -EtOH level-206 -with timeline since last drink, less likely to experience alcohol withdrawal -CIWA protocol, thiamine/MVI/folate daily -fall/seizure/aspiration precautions -1:1 monitoring no longer required as mental status improved Anxiety and depression CAD (coronary artery disease) -has known hx of CAD with prior stenting -on ASA, plavix, statin Chronic obstructive pulmonary disease, unspecified Essential (primary) hypertension Hyperglycemia Intervertebral disc disorder with radiculopathy of lumbar region Mixed hyperlipidemia Morbid obesity -BMI-52 kg/m2 Osteoarthritis, chronic Vitamin D deficiency Surgical History H/O esophagogastroduodenoscopy 05/04/2019: Status post gastric bypass with grade B esophagitis History of 2 sections History of cholecystectomy History of coronary artery stent placement History of gastric bypass History of hysterectomy History of left hip replacement History of right hip replacement Status post colonoscopy with polypectomy 05/04/2019: Descending colon polyp Family History Grandmother Hypertension Mother Hypertension Denies family history of Anesthesia complication Bleeding disorder Cancer Social History Smoking and tobacco status: current every day smoker cigarettes Packs smoked per day: 0.5 Second hand smoke exposure: Yes Smoking risk assessment/counseling performed?: Yes Alcohol intake: current Alcohol intake frequency: 3 or more drinks per day Alcohol type: hard liquor Desire information about alcohol rehabilitation?: No Counseling given: No Last alcohol use date: 06/16/19 Desire information about substance/drug rehabilitation?: No Counseling given: No Adopted: No Caregiver/support person: No Lives independently: Yes Household members: significant other Housing: House Marital status: Single Number of children: 3 service: No Current occupational status: unemployed History of recent travel: No Current gender identity: Female Physical Exam Const: COMMON NORMALS: patient oriented x3 and alert GENERAL APPEARANCE: cooperative, comfortable and anxious HENMT: COMMON NORMALS: normocephalic HEAD & SCALP: normocephalic MOUTH: Normal oral and palatal mucosa present THROAT: posterior oropharynx normal and uvula midline Eye: COMMON NORMALS: Equal, round and reactive pupils present PUPIL: Yes Equal, round and reactive pupils present Neck/C-Spine: COMMON NORMALS: supple GENERAL: Yes normal visual inspection Resp: COMMON NORMALS: normal respiratory effort, No retractions, No use of accessory muscles and clear to auscultation bilaterally AUSCULTATION: clear to auscultation bilaterally Cardio: COMMON NORMALS: regular rate, regular rhythm, S1 normal heart sound present, S2 normal heart sound present, No gallops present (Cardio), No clicks present (Cardio), No murmurs present (Cardio) and Peripheral pulses 2+ throughout RATE: regular rate RHYTHM: regular rhythm HEART SOUNDS: S1 normal heart sound present and S2 normal heart sound present PERIPHERAL PULSES: Peripheral pulses 2+ throughout GI: COMMON NORMALS: Normal to inspection, nondistended, normoactive bowel sounds present, Soft to palpation, non-tender and no masses INSPECTION: Yes Abdominal panniculus present PALPATION: Yes Soft to palpation OTHER: Underneath patient's right-sided abdominal fold she had erythema intertrigo. : COMMON NORMALS: Yes no CVA tenderness BLADDER/KIDNEY EXAM: Yes no CVA tenderness Back/Pelvis: COMMON NORMALS: no CVA tenderness Extremity: RIGHT LOWER EXTREMITY: Yes lower leg Right lower leg: Yes inspection (Patient has some warmth and erythema on the surface of the skin and it is also tender just below the knee. Erythema and warmth extends approximately 3 cm below the knee. No visible drainage or pus seen.) and Yes foot & digits Right foot and digits: Yes inspection (Erythema and warmth in her midfoot. Mild tenderness.) and Yes neurovascular exam (Intact) Neuro: COMMON NORMALS: patient oriented x3 and moves all extremities SENSORIUM/ORIENTATION: Yes alert Skin: NARRATIVE SKIN EXAM: Patient has what appears to be some cellulitis just below the right knee and also some on the right midfoot region. No visible draining, swelling or abscess formation. Patient also has some erythema intertrigo under right abdominal fold of skin. GENERAL SKIN EXAM: dry skin Course Vital Signs: Vital signs: Vital Signs Temperature 98 F 09/13/19 20:39 Pulse Rate 92 09/14/19 02:37 Respiratory Rate 18 09/14/19 02:37 Blood Pressure 156/98 09/14/19 02:37 Pulse Oximetry 97 09/14/19 02:37 MDM - Extremity (Nontraumatic) MDM Narrative: Medical decision making narrative: Patient is a 59-year-old female who comes to the ED with right leg pain and possible infection and productive cough. Patient has a past medical history of an open ankle fracture (06/16/19) that was surgically repaired and then she later developed gangrene on right lower leg that was surgically debrided (07/06/19) and wound VAC was applied and she sees wound care clinic weekly to monitor wound on right leg. Wound has been healing well but yesterday she started to develop a rash on right lower extremity. Physical exam shows cellulitic rash on right leg. Lungs were clear to auscultation bilaterally and patient had some erythema intertrigo under right abdominal skin fold. White blood cell count 16.5 and hemoglobin of 11 which is elevated compared to last level of 10.5 on 07/19. CMP and UA were unremarkable. CRP 3.1 and lactic acid was 1.3. Chest x-ray showed some possible pneumonia on the left lower lung lobe. CT of right lower leg was performed to evaluate possible osteomyelitis due to patient's history of gangrene. CT of right lower extremity showed no osteomyelitis. Patient was given IV fluids and Rocephin while here in the ED. She was diagnosed with cellulitis, pneumonia and intertrigo. Patient was given a prescription of Augmentin and zinc oxide paste to place on irritated skin folds of abdomen. Patient has a scheduled appointment with wound care this coming Wednesday. Patient was told to return to ED if symptoms worsen or do not improve after couple days of being on antibiotic. Patient understood and agreed with plan. Lab Data: Attestation: I reviewed the patient's lab results. Labs: Lab Results 09/13/19 09/13/19 09/13/19 Range/Units 21:09 21:09 21:09 WBC 16.5 H (4.0-10.0) 10^3/ uL RBC 4.43 (4.1-5.3) 10^6/u L Hgb 11.0 L (11.5-15.3) g/dL Hct 36.6 L (37.0-47.0) % MCV 82.6 (81-99) fL MCH 24.8 L (28.0-34.0) pg MCHC 30.1 (30.0-36.0) g/dL RDW 15.9 H (12.1-15.1) % Plt Count 239 (130-400) 10^3/c mm MPV 10.4 (7.4-10.4) fL Neut % (Auto) 79.5 % Lymph % (Auto) 11.3 % Fountain % (Auto) 8.2 % Eos % (Auto) 0.4 % Baso % (Auto) 0.2 % Neut # (Auto) 13.16 H (1.8-7.7) 10^3/u L Lymph # (Auto) 1.9 (0.8-4.8) 10^3/u L Fountain # (Auto) 1.4 H (0.2-0.9) 10^3/u L Eos # (Auto) 0.1 (0.0-0.8) 10^3/u L Baso # (Auto) 0.0 (0.0-0.1) 10^3/u L Nucleated RBC % (a uto) 0 % Nucleated RBCs # 0.0 /100WBC Sodium 137 (136-145) mmol/L Potassium 3.3 L (3.5-5.1) mmol/L Chloride 99 (98-107) mmol/L Carbon Dioxide 27 (22-29) mmol/L Anion Gap 14.3 (5-19) BUN 10 (8-23) mg/dL Creatinine 0.6 (0.5-0.9) mg/dL GFR Calculation 102.0 (90-130) mL/min Glucose 94 (65-115) mg/dL Calculated Osmolal ity 280 L (285-295) mOsm/k g Lactic Acid 1.3 (0.5-2.2) mmol/L Calcium 9.5 (8.5-10.5) mg/dL Total Bilirubin 0.4 (0.15-1.2) mg/dL AST 19 (0-32) U/L ALT 9 (0-33) U/L Alkaline Phosphata se 108 H (35-105) IU/L C-Reactive Protein 3.1 (0.0-4.9) mg/L Total Protein 7.3 (6.6-8.7) g/dL Albumin 3.7 (3.5-5.2) g/dL Globulin 3.6 (1.3-4.6) g/dL Urine Color (Yellow) Urine Appearance (CLEAR) Urine pH (5-7) Ur Specific Gravit y (1.005-1.030) Urine Protein (Negative) Urine Glucose (UA) (Normal) Urine Ketones (Negative) Urine Blood (Negative) Urine Nitrate (Negative) Urine Bilirubin (NEGATIVE) Urine Urobilinogen (Negative) mg/dL Ur Leukocyte Kitty ase (Negative) Urine RBC (0-2) /hpf Urine WBC (0-5) /hpf Ur Squamous Epith Cells (0-5) Urine Bacteria (NONE) Urine Mucus 09/13/19 Range/Units 23:12 WBC (4.0-10.0) 10^3/ uL RBC (4.1-5.3) 10^6/u L Hgb (11.5-15.3) g/dL Hct (37.0-47.0) % MCV (81-99) fL MCH (28.0-34.0) pg MCHC (30.0-36.0) g/dL RDW (12.1-15.1) % Plt Count (130-400) 10^3/c mm MPV (7.4-10.4) fL Neut % (Auto) % Lymph % (Auto) % Fountain % (Auto) % Eos % (Auto) % Baso % (Auto) % Neut # (Auto) (1.8-7.7) 10^3/u L Lymph # (Auto) (0.8-4.8) 10^3/u L Fountain # (Auto) (0.2-0.9) 10^3/u L Eos # (Auto) (0.0-0.8) 10^3/u L Baso # (Auto) (0.0-0.1) 10^3/u L Nucleated RBC % (a uto) % Nucleated RBCs # /100WBC Sodium (136-145) mmol/L Potassium (3.5-5.1) mmol/L Chloride (98-107) mmol/L Carbon Dioxide (22-29) mmol/L Anion Gap (5-19) BUN (8-23) mg/dL Creatinine (0.5-0.9) mg/dL GFR Calculation (90-130) mL/min Glucose (65-115) mg/dL Calculated Osmolal ity (285-295) mOsm/k g Lactic Acid (0.5-2.2) mmol/L Calcium (8.5-10.5) mg/dL Total Bilirubin (0.15-1.2) mg/dL AST (0-32) U/L ALT (0-33) U/L Alkaline Phosphata se (35-105) IU/L C-Reactive Protein (0.0-4.9) mg/L Total Protein (6.6-8.7) g/dL Albumin (3.5-5.2) g/dL Globulin (1.3-4.6) g/dL Urine Color Yellow (Yellow) Urine Appearance Clear (CLEAR) Urine pH 5 (5-7) Ur Specific Gravit y 1.015 (1.005-1.030) Urine Protein Neg (Negative) Urine Glucose (UA) Norm (Normal) Urine Ketones 1+ H (Negative) Urine Blood Neg (Negative) Urine Nitrate Negative (Negative) Urine Bilirubin Neg (NEGATIVE) Urine Urobilinogen 8 H (Negative) mg/dL Ur Leukocyte Kitty ase Negative (Negative) Urine RBC 0-4 H (0-2) /hpf Urine WBC 0-4 H (0-5) /hpf Ur Squamous Epith Cells 0-4 H (0-5) Urine Bacteria 1+ H (NONE) Urine Mucus 1+ Imaging Data^: Xray Ortho: Attestation: I personally reviewed and interpreted this imaging study as follows: My impression: Right ankle and tibia x-ray performed. No clear evidence of osteomyelitis and ankle fracture still healing. Pending final radiology report. Other CT: Attestation: I personally reviewed and interpreted this imaging study as follows: Radiologist's impression: [address] [address] [address] Scan Report Signed Patient: Zenaida Madsen Unit #: [id number] : 1960 Age/Sex: 59 / F ADM Date: 09/13/19 Loc: ER Room/Bed: Attending Dr: Ordering Provider/Ordering MD: Ezekiel Aguilar Date of Service: 09/13/19 Procedure(s): CT lower leg RT w con [id number] Accession Number(s): [id number] Report Number: [id number] PROCEDURE INFORMATION: Exam: CT Right Lower Extremity Without Contrast; Lower Leg Exam date and time: 09/13/2019 12:31 AM Age: 59 years old Clinical indication: Pain; Difficulty in walking and swelling, leg or foot and other: Redness; Ankle and foot and lower leg; Right; Prior surgery; Surgery date: 1-6 months; Surgery type: External fixation of ankle FX; Patient HX: Ankle FX June 16, 2019; Additional info: Possible osteo TECHNIQUE: Imaging protocol: CT of the Right lower extremity without contrast was performed. Exam focused on the lower leg. Radiation optimization: All CT scans at this facility use at least one of these dose optimization techniques: automated exposure control; mA and/or kV adjustment per patient size (includes targeted exams where dose is matched to clinical indication); or iterative reconstruction. COMPARISON: CR XR tibia fibula RT 2V [id number] 09/13/2019 9:21 PM RADIATION DOSE METRICS: Total DLP (mGy-cm): 2588.03 FINDINGS: Bones/joints: The knee is unremarkable. There are screw tracts in the tibial diaphysis. There is severe osteopenia in the distal tibia and fibula and throughout the visible portion of the foot. There is a healed posterior malleolar fracture. There is an ununited fracture of the lateral malleolus. There is an ununited fracture of the medial malleolus. Soft tissues: There is diffuse soft tissue edema about the ankle. There is subcutaneous edema and skin thickening along the medial lower leg. There is a dermal/subdermal fluid collection measuring 15 x 10 mm medially above the ankle. CT/CT lower leg RT w con [id number] IMPRESSION: 1. No definitive evidence of bone infection. 2. Disuse osteopenia in the lower leg and foot. 3. Ununited fractures of the medial and lateral malleoli. Healed posterior malleolar fracture. 4. Subcutaneous fluid collection containing 1-2 cc in the medial lower leg above the ankle. Possible abscess or seroma. Radiation Dose CTDIVOL = (mGy): DLP = 2588.03 (mGy-cm) Dictated By: Moe Greenwood MD Signed By: Moe Greenwood MD Signed Date/Time: 09/14/19150 DD/ 9 CXR: Attestation: I personally reviewed and interpreted this imaging study as follows: My impression: Possible left lower lobe infiltrate identified. Pending final radiology report. Discharge Plan Discharge Patient Disposition: Home, Self-Care Clinical Impression: Erythema intertrigo Cellulitis Qualifiers: Site of cellulitis: extremity Site of cellulitis of extremity: lower extremity Laterality: right Qualified Code(s): L03.115 - Cellulitis of right lower limb Pneumonia Qualifiers: Pneumonia type: due to unspecified organism Laterality: left Lung location: lower lobe of lung Qualified Code(s): J18.9 - Pneumonia, unspecified organism Condition: Stable Prescriptions: New Augmentin 500-125 mg tablet 1 tab PO BID 10 Days Qty: 20 RF: 0 zinc oxide 25 % paste 1 applic TOPICAL DAILY PRN (Reason: skin irritation) Qty: 500 RF: 0 No Action duloxetine 60 mg capsule,delayed release(DR/EC) 60 mg PO BID Qty: 60 RF: 2 hydrocodone-acetaminophen [[place]] 5-325 mg tablet 1 tab PO Q4H PRN (Reason: pain) 7 Days Qty: 30 RF: 0 nystatin 100,000 unit/mL suspension 5 ml PO QID Qty: 200 RF: 0 nystatin 100,000 unit/gram powder 1 applic TOPICAL TID Qty: 60 RF: 2 tramadol 50 mg tablet 50 mg PO Q6H PRN (Reason: pain) Qty: 30 RF: 0 pantoprazole [Protonix] 40 mg tablet,delayed release (DR/EC) 40 mg PO BID 30 Days Qty: 60 RF: 3 cyclobenzaprine 10 mg tablet 10 mg PO TID PRN (Reason: Muscle Spasm) Qty: 30 RF: 0 carvedilol 25 mg tablet 25 mg PO BID Qty: 60 RF: 0 albuterol sulfate 2.5 mg /3 mL (0.083 %) solution for nebulization 2.5 mg INHALATION Q6H Qty: 30 RF: 0 hydroxyzine pamoate 50 mg capsule 50 mg PO BID PRN (Reason: Anxiety) Qty: 60 RF: 0 meclizine 25 mg tablet 25 mg PO BID PRN (Reason: Dizziness Or Vertigo) Qty: 30 RF: 0 rosuvastatin 40 mg tablet 40 mg PO BEDTIME Qty: 30 RF: 0 B Complex Plus Vitamin C 28-82-57-5-300 mg capsule 1 cap PO DAILY Qty: 30 RF: 0 budesonide [Pulmicort] 1 mg/2 mL suspension for nebulization 1 mg INHALATION BID Qty: 60 RF: 2 cholecalciferol (vitamin D3) [Vitamin D3] 125 mcg (5,000 unit) Tablet 5,000 unit PO DAILY Qty: 30 RF: 0 gabapentin 300 mg Capsule See Rx Instructions .ROUTE .COMPLEX RF: 0 lisinopril 40 mg Tablet 40 mg PO DAILY RF: 0 clopidogrel [Plavix] 75 mg Tablet 75 mg PO DAILY RF: 0 [place] 5-325 mg tablet 1 tab PO Q4H PRN (Reason: pain) Qty: 30 RF: 0 Discharge Orders: Discharge Order (Routine); Ordered 09/14/19 Ordered By: Ezekiel Aguilar Referrals: Jadiel Munoz, [facility] TECHNICIAN[facility] [Primary Care Provider] - Discharge Diet: Regular Discharge Activity: Limit activity as instructed Patient Instructions: Cellulitis (ED), Community-acquired Pneumonia (ED) Activity Restrictions/Additional Instructions: Follow-up with medical provider as directed. Go to your next wound care clinic appointment on Wednesday for reevaluation of cellulitis. Take medications as prescribed. Return to the ER or your medical provider if condition worsens. Please read and understand discharge instructions. If any questions, please ask. Discharge Date/Time: 09/14/19 02:45 Coding Level of Care Code ED Hand Alterations Tailor for Michael Fwira Exam Comprehensive
[2019-09-13 20:51] VITALS: PULSE 107
[2019-09-13 21:00] VITALS: BP 181/116; PULSE 104; RESP 17; O2SAT 98
--- NOTE | 2019-09-13 21:02 | XRR_ITS ---
PROCEDURE INFORMATION: Exam: XR Chest, 1 View Exam date and time: 09/13/2019 9:48 PM Age: 59 years old Clinical indication: Patient HX: Leg infection. Ankle fracture and surgery 06/15. Productive cough TECHNIQUE: Imaging protocol: XR of the chest Views: Frontal portable upright view of the chest. COMPARISON: CR XR chest 1V portable [id number] 07/20/2019 11:48 AM FINDINGS: Lungs: Mild right and lateral left basilar subsegmental atelectasis. The lungs are otherwise peripherally clear bilaterally. Pleural space: No pleural effusion. No pneumothorax. Heart/Mediastinum: Mediastinum: Stable. Diaphragm: The right hemidiaphragm remains moderately elevated. Bones/joints: Stable. XR/XR chest 1V portable [id number] IMPRESSION: Mild right and lateral left basilar subsegmental atelectasis.
--- NOTE | 2019-09-13 21:02 | XRR_ITS ---
PROCEDURE INFORMATION: Exam: XR Right Ankle Exam date and time: 09/13/2019 9:48 PM Age: 59 years old Clinical indication: Condition or disease; Other: S/P RT ank fracture 06/15 and surgery; Prior surgery; Surgery date: 1-6 months; Surgery type: Open trimalleolar right ankle fracture 06/15; Patient HX: Surgery 06/15. 2 wk post op developed infection. 07/05 gangrene-debride and irrigate done. Then placed on wound vac. Yesterday started w/redness and increased pain; Additional info: Post surgical pain TECHNIQUE: Imaging protocol: XR Right ankle. Views: Frontal, lateral, and oblique views. COMPARISON: CR (LOW EXM, ) 08/31/2019 2:46 PM FINDINGS: Bones/joints: Extensive cancellous bone lucency of the distal tibial medial malleolus and medial metaphysis with medial periosteal reaction that appears increased compared to the prior study. Previous medial malleolar persistent fracture line now has appearance of a well-formed cloaca exiting medially (mortise image). Nonunion distal fibular metadiaphyseal fracture, stable. Mild lateral tibiotalar subluxation with widening of the medial tibiotalar joint. Anterior widening of the tibiotalar joint. Heterogeneous diffuse osteopenia (likely disuse). Soft tissues: Heterotopic calcifications anterior to the tibiotalar articulation. Moderate bimalleolar soft tissue edema. XR/XR ankle RT min 3V* [id number] IMPRESSION: 1. Findings consistent with distal tibial osteomyelitis. 2. Nonunion distal fibular metadiaphyseal fracture, stable. 3. Mild lateral tibiotalar subluxation with widening of the medial tibiotalar joint. 4. Moderate bimalleolar soft tissue edema. Cellulitis not excluded. Clinical correlation is recommended.
--- NOTE | 2019-09-13 21:04 | XRR_ITS ---
PROCEDURE INFORMATION: Exam: XR Right Tibia and Fibula Exam date and time: 09/13/2019 9:50 PM Age: 59 years old Clinical indication: Condition or disease; Prior surgery; Surgery date: 1-6 months; Surgery type: Trimalleolar fracture then surgery. 2 week post op infection then to gangrene then to wound vac; Patient HX: Leg infection, redness starting 09/12/19; Additional info: Post surgical-possible infection. Productive cough TECHNIQUE: Imaging protocol: XR Right tibia and fibula. Views: Frontal and lateral views. COMPARISON: CR XR tibia fibula RT 2V [id number] 07/20/2019 11:48 AM FINDINGS: Bones/joints: Bone lysis of the distal tibial metaphysis and medial malleolus. Soft tissues: Moderate lower leg and bimalleolar soft tissue edema. Vasculature: Vascular calcifications are present. Other findings: Interval removal of the external fixator. The ankle is excluded on the lateral image, limiting assessment of the previous distal fibular and posterior malleolar fractures. XR/XR tibia fibula RT 2V [id number] IMPRESSION: 1. Interval removal of the external fixator. 2. Bone lysis of the distal tibial metaphysis and medial malleolus. Please see the right ankle radiographic report of the same date for additional findings. 3. Moderate lower leg and bimalleolar soft tissue edema. Cellulitis not excluded. Clinical correlation is recommended. 4. Limitations as above.
[2019-09-13 21:11] VITALS: RESP 16; O2SAT 98
[2019-09-13] MEDS: morphine 4 mg/mL SDV 1 mL IVP (21:11)
[2019-09-13] MEDS: ondansetron 2 mg/ML SDV 2 mL 4 MG IVP (21:11)
[2019-09-13] MEDS: sodium chloride 0.9% 500 ML IV (21:12)
[2019-09-13 21:14] LABS: Basophils % 0.2 %; Eosinophils # 0.1 10^3/uL (0.0-0.8); Eosinophils % 0.4 %; Hematocrit 36.6 % (37.0-47.0); Lymphocytes # 1.9 10^3/uL (0.8-4.8); Lymphocytes % 11.3 %; Mean Corpuscular HGB Conc 30.1 g/dL (30.0-36.0); Mean Corpuscular Hemoglobin 24.8 pg (28.0-34.0); Mean Corpuscular Volume 82.6 fL (81-99); Mean Platelet Volume 10.4 fL (7.4-10.4); Monocytes # 1.4 10^3/uL (0.2-0.9); Monocytes % 8.2 %; Neutrophils # 13.16 10^3/uL (1.8-7.7); Neutrophils % 79.5 %; Nucleated Red Blood Cells % 0 %; Platelet Count 239 10^3/cmm (130-400); Red Blood Count 4.43 10^6/uL (4.1-5.3); Red Cell Distribution Width 15.9 % (12.1-15.1); White Blood Count 16.5 10^3/uL (4.0-10.0)
[2019-09-13 21:45] LABS: Alanine Aminotransferase 9 U/L (0-33); Albumin Level 3.7 g/dL (3.5-5.2); Alkaline Phosphatase 108 IU/L (35-105); Anion Gap 14.3 (5-19); Aspartate Amino Transferase 19 U/L (0-32); Blood Urea Nitrogen 10 mg/dL (8-23); Calcium 9.5 mg/dL (8.5-10.5); Carbon Dioxide 27 mmol/L (22-29); Chloride 99 mmol/L (98-107); Globulin 3.6 g/dL (1.3-4.6); Glucose 94 mg/dL (65-115); Osmolality Calculated 280 mOsm/kg (285-295); Potassium 3.3 mmol/L (3.5-5.1); Sodium 137 mmol/L (136-145); Total Bilirubin 0.4 mg/dL (0.15-1.2); Total Protein 7.3 g/dL (6.6-8.7)
[2019-09-13 21:46] LABS: Lactic Sepsis W/Reflex 1.3 mmol/L (0.5-2.2)
[2019-09-13] MEDS: cefTRIAXone 2,000 MG in sodium chloride 0.9% (plus) 50 ML 100 MG IV (21:46)
[2019-09-13 22:02] VITALS: BP 145/82; PULSE 102; RESP 17; O2SAT 92
[2019-09-13 22:33] LABS: C Reactive Protein 3.1 mg/L (0.0-4.9)
[2019-09-13 23:18] VITALS: RESP 16
--- NOTE | 2019-09-13 23:55 | CTR_ITS ---
PROCEDURE INFORMATION: Exam: CT Right Lower Extremity Without Contrast; Lower Leg Exam date and time: 09/13/2019 12:31 AM Age: 59 years old Clinical indication: Pain; Difficulty in walking and swelling, leg or foot and other: Redness; Ankle and foot and lower leg; Right; Prior surgery; Surgery date: 1-6 months; Surgery type: External fixation of ankle FX; Patient HX: Ankle FX June 16, 2019; Additional info: Possible osteo TECHNIQUE: Imaging protocol: CT of the Right lower extremity without contrast was performed. Exam focused on the lower leg. Radiation optimization: All CT scans at this facility use at least one of these dose optimization techniques: automated exposure control; mA and/or kV adjustment per patient size (includes targeted exams where dose is matched to clinical indication); or iterative reconstruction. COMPARISON: CR XR tibia fibula RT 2V [id number] 09/13/2019 9:21 PM RADIATION DOSE METRICS: Total DLP (mGy-cm): 2588.03 FINDINGS: Bones/joints: The knee is unremarkable. There are screw tracts in the tibial diaphysis. There is severe osteopenia in the distal tibia and fibula and throughout the visible portion of the foot. There is a healed posterior malleolar fracture. There is an ununited fracture of the lateral malleolus. There is an ununited fracture of the medial malleolus. Soft tissues: There is diffuse soft tissue edema about the ankle. There is subcutaneous edema and skin thickening along the medial lower leg. There is a dermal/subdermal fluid collection measuring 15 x 10 mm medially above the ankle. CT/CT lower leg RT w con [id number] IMPRESSION: 1. No definitive evidence of bone infection. 2. Disuse osteopenia in the lower leg and foot. 3. Ununited fractures of the medial and lateral malleoli. Healed posterior malleolar fracture. 4. Subcutaneous fluid collection containing 1-2 cc in the medial lower leg above the ankle. Possible abscess or seroma. Radiation Dose CTDIVOL = (mGy): DLP = 2588.03 (mGy-cm)
[2019-09-14 00:01] LABS: Bacteria Urine 1+; Bilirubin Urine Neg (NEGATIVE); Blood Urine Neg (Negative); Glucose Urine UA Norm (Normal); Ketones Urine 1+ (Negative); Leukocyte Esterase Urine Negative (Negative); Mucus Urine 1+; Nitrate Urine Negative (Negative); Protein Urine Neg (Negative); RBC Urine 0-4 /hpf (0-2); Specific Gravity, Urine 1.015 (1.005-1.030); Squamous Epithelial Cell Urine 0-4 (0-5); Urine Appearance Clear (CLEAR); Urine Color Yellow (Yellow); Urobilinogen Urine 8 mg/dL (Negative); WBC Urine 0-4 /hpf (0-5); pH Urine 5 (5-7)
[2019-09-14 00:08] VITALS: BP 146/87; PULSE 102; RESP 18; O2SAT 91
--- NOTE | 2019-09-14 00:54 | PC.NURSE ---
patient to ct
[2019-09-14] MEDS: iohexol 300 mg/mL 100 mL Btl IV (01:13)
[2019-09-14 01:39] VITALS: BP 132/90; PULSE 94; RESP 16; O2SAT 94
[2019-09-14 02:37] VITALS: BP 156/98; PULSE 92; RESP 18; O2SAT 97
== END 2019-09-14 02:45 | disposition home or self-care (01) ==
PROVIDERS: Emergency Medicine; Emergency Provider Physician Assistant; PCP Nurse Practitioner
DX: L30.4 Erythema intertrigo (principal); L03.115 Cellulitis of right lower limb; J18.9 Pneumonia, unspecified organism; Z79.02 Long term (current) use of antithrombotics/antiplatelets; F17.210 Nicotine dependence, cigarettes, uncomplicated; I25.10 Atherosclerotic heart disease of native coronary artery without angina pectoris; J44.9 Chronic obstructive pulmonary disease, unspecified; I10 Essential (primary) hypertension; E78.2 Mixed hyperlipidemia
CPT/HCPCS: 12345; 36415; 51701; 71045; 73590; 73610; 73701; 80053; 81001; 83605; 85025; 86140; 87040; 96365; 96375; 99284; J0696; J2270; J2405; J7040; Q9967

== ENCOUNTER 2019-09-18 07:58 | Outpatient (CLI) | payer MEDICARE, MEDICAID, SELFPAY | END 2019-09-18 07:59 | disposition home or self-care (01) | LOC: WOUND 08:02 | PROVIDERS: PCP Nurse Practitioner; Visit Provider Emergency Medicine | DX: T81.89XA Other complications of procedures, not elsewhere classified, initial encounter (principal) | CPT/HCPCS: 11042 ==

== ENCOUNTER 2019-09-25 08:08 | Outpatient (CLI) | payer MEDICARE, MEDICAID, SELFPAY | END 2019-09-25 08:09 | disposition home or self-care (01) | LOC: WOUND 08:12 | PROVIDERS: PCP Nurse Practitioner; Visit Provider Emergency Medicine | DX: T81.89XA Other complications of procedures, not elsewhere classified, initial encounter (principal) | CPT/HCPCS: 11042 ==

== ENCOUNTER → 2019-09-28 08:08 | Outpatient (BNVA) | payer MEDICARE, MEDICAID, SELFPAY | PROVIDERS: PCP Nurse Practitioner; Visit Provider Orthopaedic Surgery | DX: S82.851 Displaced trimalleolar fracture of right lower leg (principal); X58.XXXD Exposure to other specified factors, subsequent encounter | CPT/HCPCS: 73610 ==

== ENCOUNTER 2019-09-28 09:47 | Outpatient (CLI) | payer MEDICARE, MEDICAID, SELFPAY | END 2019-09-28 09:48 | disposition home or self-care (01) | LOC: SPT 09:48 | PROVIDERS: PCP Nurse Practitioner; Visit Provider Orthopaedic Surgery | DX: Z46.89 Encounter for fitting and adjustment of other specified devices (principal); S82.851 Displaced trimalleolar fracture of right lower leg; X58.XXXD Exposure to other specified factors, subsequent encounter | CPT/HCPCS: 73610; 97760; L1902 ==

== ENCOUNTER 2019-10-02 07:56 | Outpatient (CLI) | payer MEDICARE, MEDICAID, SELFPAY | END 2019-10-02 07:57 | disposition home or self-care (01) | LOC: WOUND 08:02 | PROVIDERS: PCP Nurse Practitioner; Visit Provider Nurse Practitioner Family | DX: T81.89XA Other complications of procedures, not elsewhere classified, initial encounter (principal) | CPT/HCPCS: 99212 ==

== ENCOUNTER 2019-10-03 13:17 | Outpatient (CLI) | payer MEDICARE, MEDICAID, SELFPAY ==
--- NOTE | 2019-10-03 13:33 | USCV_ITS ---
Zenaida Madsen Age: 59 Gender: F : 1960 Exam Date: 10/03/2019 13:35 Ordering Phys: Bina Zayas Technologist: Olya Marley Exam Location: [facility] [place] Indication: HISTORY: PROCEDURES: FINDINGS: Difficult to collapse Lt CFV due to patient pain but augmented with distal compression. Appears to be free of thrombus. Only reflux noted in the Lt SSV. All veins imaged appear to be free of thrombus at this time. CONCLUSIONS No evidence of DVT in the above-mentioned identifiable veins. Significant venous reflux of greater than 500 ms was noted at the proximal and mid segments of the small saphenous vein on the left side. The vein was a small caliber at this level measuring 0.27 and 0.2 cm in diameter. There were more than a monitor immediately from the surface. The reflux time was 1.8 and 1.13 seconds respectively The venous dimensions, depth from the surface and reflux times are as mentioned above Dr Aimee Pelaez MD [facility] (Electronically Signed) Final Date: 03 October 2019 14:18 S
== END 2019-10-03 13:18 | disposition home or self-care (01) ==
LOC: RAD 13:21
PROVIDERS: PCP Nurse Practitioner; Visit Provider Nurse Practitioner Family
DX: M79.604 Pain in right leg (principal); M79.605 Pain in left leg; L53.9 Erythematous condition, unspecified; L97.929 Non-pressure chronic ulcer of unspecified part of left lower leg with unspecified severity; L97.919 Non-pressure chronic ulcer of unspecified part of right lower leg with unspecified severity
CPT/HCPCS: 93970

== ENCOUNTER 2019-10-04 14:16 | Outpatient (CLI) | payer MEDICARE, MEDICAID, SELFPAY ==
--- NOTE | 2019-10-04 14:23 | USCV_ITS ---
Zenaida Madsen Age: 59 Gender: F : 1960 Exam Date: 10/04/2019 14:14 Ordering Phys: Bina Zayas Technologist: Irene Wu Exam Location: [facility] [place] Indication: NON HEALING ULCER RIGHT LEFT Brachial 175.00 mmHg Brachial 162.00 mmHg Pressure (mmHg) Waveform Pressure (mmHg) Waveform 156.00 Pre-Exercise Toe Pressure 132.00 0.89 Pre-Exercise Toe/Brachial Index 0.75 FINDINGS BILATERAL ANKLE PRESSURES >220 Normal resting TBI's bilaterally Normal PVR waveforms bilaterally CONCLUSIONS 1. The above features are suggesting no significant arterial obstruction bilaterally Dr Aimee Pelaez MD [facility] (Electronically Signed) Final Date: 04 October 2019 18:52 S
== END 2019-10-04 14:17 | disposition home or self-care (01) ==
LOC: US 14:17
PROVIDERS: PCP Nurse Practitioner; Visit Provider Nurse Practitioner Family
DX: M79.604 Pain in right leg (principal); M79.605 Pain in left leg; L53.9 Erythematous condition, unspecified; L97.929 Non-pressure chronic ulcer of unspecified part of left lower leg with unspecified severity; L97.919 Non-pressure chronic ulcer of unspecified part of right lower leg with unspecified severity
CPT/HCPCS: 85025; 93923

== ENCOUNTER 2019-10-06 10:45 | Outpatient (CLI) | payer MEDICARE, MEDICAID, SELFPAY ==
--- NOTE | 2019-10-06 10:55 | MR_ITS ---
WS: [id number] MRI RIGHT ANKLE NONCONTRAST TECHNIQUE: Sagittal proton density, sagittal STIR, axial proton density, axial T1, axial T2 fat sat, coronal proton density, coronal proton density fat sat, coronal T2 fat sat. CLINICAL INFORMATION: fracture COMPARISON: CT September 14, 2019 FINDINGS: Evidence of prior hardware removal involving the calcaneus. Diffuse edema involving the dis negar tibial plafond with serpiginous bone marrow signal most consistent with avascular necrosis. This extends to the tibial plafond articular surface. Ununited fracture involving the posterior malleolus. Ununited fractures involving the distal fibula and medial malleolus. Additional diffuse bone marrow edema with a small amount of articular collapse involving the talar dome also most consistent with av ascular necrosis. Diffuse edema throughout the talus extending into the anterior process of the talus . Degenerative bone marrow edema involving the tarsal bones. Additional area of suspected avascular n ecrosis involving the base of the first metatarsal with serpiginous bone marrow signal. Advanced oste openia. Plantar calcaneal spurring. Achilles enthesophyte. Distal Achilles appears normal. Small ankle effusion. No drainable abscess or fluid collection. Exten sor and flexor compartment tendons appear intact. Peroneal tendons appear intact. MR/MR ankle RT wo con* [id number] IMPRESSION: 1. Imaging limited due to motion artifact and positioning. 2. Ununited fractures involving the distal fibula, medial malleolus, and poste rior malleolus. 3. 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 4. Small amount of articular collapse involving the talar dome. 5. Diffuse extensive edema involving the lower leg soft tissues and foot soft tissues consistent with cellulitis. No drainable fluid collections.
== END 2019-10-06 10:46 | disposition home or self-care (01) ==
LOC: RADWPI 10:50
PROVIDERS: Family Provider Nurse Practitioner; PCP Nurse Practitioner; Visit Provider Orthopaedic Surgery
DX: S82.831A Other fracture of upper and lower end of right fibula, initial encounter for closed fracture (principal); S82.51XA Displaced fracture of medial malleolus of right tibia, initial encounter for closed fracture; R60.0 Localized edema; X58.XXXA Exposure to other specified factors, initial encounter
CPT/HCPCS: 73721

== ENCOUNTER → 2019-10-11 09:12 | Outpatient (BNVA) | payer MEDICARE, MEDICAID, SELFPAY | PROVIDERS: Family Provider Nurse Practitioner; PCP Nurse Practitioner; Visit Provider Nurse Practitioner | DX: I10 Essential (primary) hypertension (principal); F41.9 Anxiety disorder, unspecified; F32.9 Major depressive disorder, single episode, unspecified; M51.16 Intervertebral disc disorders with radiculopathy, lumbar region; M79.604 Pain in right leg | CPT/HCPCS: 80048 ==

== ENCOUNTER → 2020-01-09 09:40 | Outpatient (BNVA) | payer MEDICARE, MEDICAID, SELFPAY | PROVIDERS: Family Provider Nurse Practitioner; PCP Nurse Practitioner; Visit Provider Nurse Practitioner | DX: I25.10 Atherosclerotic heart disease of native coronary artery without angina pectoris (principal); I10 Essential (primary) hypertension; M51.16 Intervertebral disc disorders with radiculopathy, lumbar region; J44.9 Chronic obstructive pulmonary disease, unspecified; F41.9 Anxiety disorder, unspecified; F32.9 Major depressive disorder, single episode, unspecified; J18.9 Pneumonia, unspecified organism; E55.9 Vitamin D deficiency, unspecified | CPT/HCPCS: 80053; 80061; 85025 ==

== ENCOUNTER 2020-03-03 13:17 | Emergency (ER) | payer MEDICARE, MEDICAID, SELFPAY ==
[2020-03-03] VITALS (8 sets, daily range): BP systolic 144–153; BP diastolic 86–102; PULSE 69–88; RESP 17–20; O2SAT 95–98; BMI 48.5
--- NOTE | 2020-03-03 13:26 | XRR_ITS ---
PROCEDURE INFORMATION: Exam: XR Chest, 1 View Exam date and time: 03/03/2020 1:29 PM Age: 59 years old Clinical indication: Shortness of breath; Additional info: Cough TECHNIQUE: Imaging protocol: XR of the chest Views: 1 view. COMPARISON: CR XR chest 1V portable [id number] 09/13/2019 9:21 PM FINDINGS: Lungs: Unremarkable. No consolidation. Pleural space: Unremarkable. No pleural effusion. No pneumothorax. Heart/Mediastinum: Unremarkable. No cardiomegaly. Bones/joints: Unremarkable. XR/XR chest 1V portable [id number] IMPRESSION: No acute findings.
--- NOTE | 2020-03-03 13:27 | ECG_ITS ---
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 Measurements Intervals [place] Rate: 74 P: 246 IL: 117 QRS: 46 QRSD: 94 T: 49 QT: 374 QTc: 415 Interpretive Statements SINUS RHYTHM Compared to ECG 03/10/2019 12:18:20 No significant changes Electronically Signed On 03-03-2020 17:44:01 [employer]MENT[employer] PROFESSOR by Jr Miramontes M.D. [email or web address]
[2020-03-03] MEDS: albuterol 8 gm MDI 4 PUFF INHALATION (14:07)
--- NOTE | 2020-03-03 14:15 | ED_ITS ---
HPI - COVID General: Chief Complaint: COVID symptoms Stated Complaint: SOB Time Seen by Provider: 03/03/20 13:18 Source: patient and EMS Triage information: Has fever, cough or shortness of breath . No known COVID + exposure last 14 days History of Present Illness: HPI Narrative: Patient presents with flulike symptoms for the past week. She states that starting February 22 she started to have fever and cough and congestion and has since lost the sense of taste and smell. Boyfriend is home with similar problems. States that she has shortness of breath. She does have a history of COPD and does still smoke. She has been using her albuterol inhaler at home. EMS did give her 125 mg of Solu-Medrol IV. COVID 19 common symptoms: positive fever(s), productive cough, dyspnea and headache(s) COVID Results: SARS-CoV-2 Antigen (Rapid) Negative (Negative) 03/03/20 14:17 03/03/20 Review of Systems General: Reports: 10 or more systems reviewed and unremarkable except in HPI and below Const: Reports: fever(s) ENMT: Reports: nasal discharge Resp: Reports: dyspnea and productive cough Musc: Reports: muscle cramps Skin/Breast: Denies: rash Neuro: Reports: headache(s) and other (Decrease in taste and smell) PFSH ED PFSH: Medical History (Updated 03/03/20 @ 15:34 by Rah Smith MD) Alcohol abuse -Long history of documented chronic alcohol abuse; acutely intoxicated resulting in fall and subsequent right trimalleolar fracture -EtOH level-206 -with timeline since last drink, less likely to experience alcohol withdrawal -CIWA protocol, thiamine/MVI/folate daily -fall/seizure/aspiration precautions -1:1 monitoring no longer required as mental status improved Anxiety and depression CAD (coronary artery disease) -has known hx of CAD with prior stenting -on ASA, plavix, statin Chronic obstructive pulmonary disease, unspecified Essential (primary) hypertension Hyperglycemia Intervertebral disc disorder with radiculopathy of lumbar region Mixed hyperlipidemia Morbid obesity -BMI-52 kg/m2 Osteoarthritis, chronic Personal history of nicotine dependence Vitamin D deficiency Surgical History (Updated 01/13/20 @ 10:44 by ISABELLE Browne) H/O esophagogastroduodenoscopy 05/04/2019: Status post gastric bypass with grade B esophagitis History of 2 sections History of cholecystectomy History of coronary artery stent placement History of gastric bypass History of hysterectomy History of left hip replacement History of right hip replacement S/P foot surgery, right Gangrene Status post colonoscopy with polypectomy 05/04/2019: Descending colon polyp Family History Grandmother Hypertension Mother Hypertension Denies family history of Anesthesia complication Bleeding disorder Cancer Social History Smoking and tobacco status: current every day smoker cigarettes Packs smoked per day: 0.5 Second hand smoke exposure: Yes Smoking risk assessment/counseling performed?: Yes Alcohol intake: current Alcohol intake frequency: 3 or more drinks per day Alcohol type: hard liquor Desire information about alcohol rehabilitation?: No Counseling given: No Last alcohol use date: 06/16/19 Desire information about substance/drug rehabilitation?: No Counseling given: No Adopted: No Caregiver/support person: No Lives independently: Yes Household members: significant other Housing: House Marital status: Single Number of children: 3 service: No Current occupational status: unemployed History of recent travel: No Current gender identity: Female Physical Exam Const: COMMON NORMALS: no acute distress, average body habitus, patient oriented x3, no limitations, healthy appearing, alert and well nourished HENMT: COMMON NORMALS: normocephalic and atraumatic HEAD & SCALP: normocephalic and atraumatic Eye: COMMON NORMALS: Equal, round and reactive pupils present and EOMs intact bilaterally PUPIL: Yes Equal, round and reactive pupils present Chest: COMMONS NORMALS: normal inspection of the chest Resp: EFFORT & INSPECTION: Yes able to speak in complete sentences, Yes labored and Yes audible wheezes Cardio: COMMON NORMALS: regular rate and regular rhythm RATE: regular rate RHYTHM: regular rhythm GI: COMMON NORMALS: Soft to palpation and non-tender PALPATION: Yes Soft to palpation Neuro: COMMON NORMALS: patient oriented x3 SENSORIUM/ORIENTATION: Yes alert Course Vital Signs: Vital signs: Vital Signs Pulse Rate 73 03/03/20 14:08 Respiratory Rate 18 03/03/20 14:00 Blood Pressure 144/86 03/03/20 13:32 Pulse Oximetry 98 03/03/20 14:00 MDM - COVID MDM Narrative: Medical decision making narrative: Patient is feeling much better after albuterol and steroids. Suspect patient just with COPD and acute bronchitis. Covid test was negative. Will discharge patient home with steroids and azithromycin. Lab Data: Labs: Lab Results 03/03/20 03/03/20 03/03/20 Range/Units 14:17 14:17 14:17 WBC 6.2 (4.0-10.0) 10^3/ uL RBC 4.92 (4.1-5.3) 10^6/u L Hgb 11.4 L (11.5-15.3) g/dL Hct 39.3 (37.0-47.0) % MCV 79.9 L (81-99) fL MCH 23.2 L (28.0-34.0) pg MCHC 29.0 L (30.0-36.0) g/dL RDW 19.2 H (12.1-15.1) % Plt Count 202 (130-400) 10^3/c mm MPV 9.9 (7.4-10.4) fL Neut % (Auto) 75.0 % Lymph % (Auto) 19.1 % [place] % (Auto) 4.3 % Eos % (Auto) 1.1 % Baso % (Auto) 0.3 % Neut # (Auto) 4.67 (1.8-7.7) 10^3/u L Lymph # (Auto) 1.2 (0.8-4.8) 10^3/u L [place] # (Auto) 0.3 (0.2-0.9) 10^3/u L Eos # (Auto) 0.1 (0.0-0.8) 10^3/u L Baso # (Auto) 0.0 (0.0-0.1) 10^3/u L Nucleated RBC % (a uto) 0 % Nucleated RBCs # 0.0 /100WBC Sodium 141 (136-145) mmol/L Potassium 3.6 (3.5-5.1) mmol/L Chloride 103 (98-107) mmol/L Carbon Dioxide 30 H (22-29) mmol/L Anion Gap 11.6 (5-19) BUN 6 L (8-23) mg/dL Creatinine 0.8 (0.5-0.9) mg/dL GFR Calculation 73.2 L (90-130) mL/min Glucose 98 (65-115) mg/dL Calculated Osmolal ity 290 (285-295) mOsm/k g Calcium 8.8 (8.5-10.5) mg/dL Total Bilirubin 0.4 (0.15-1.2) mg/dL AST 50 H (0-32) U/L ALT 23 (0-33) U/L Alkaline Phosphata se 100 (35-105) IU/L Troponin T Baselin e 12 H (0-10) ng/L NT-Pro-B Natriuret Pep 89 (0-125) pg/mL Total Protein 6.5 L (6.6-8.7) g/dL Albumin 3.4 L (3.5-5.2) g/dL Globulin 3.1 (1.3-4.6) g/dL SARS-CoV-2 Ag (Rap id) (Negative) 03/03/20 Range/Units 14:17 WBC (4.0-10.0) 10^3/ uL RBC (4.1-5.3) 10^6/u L Hgb (11.5-15.3) g/dL Hct (37.0-47.0) % MCV (81-99) fL MCH (28.0-34.0) pg MCHC (30.0-36.0) g/dL RDW (12.1-15.1) % Plt Count (130-400) 10^3/c mm MPV (7.4-10.4) fL Neut % (Auto) % Lymph % (Auto) % [place] % (Auto) % Eos % (Auto) % Baso % (Auto) % Neut # (Auto) (1.8-7.7) 10^3/u L Lymph # (Auto) (0.8-4.8) 10^3/u L [place] # (Auto) (0.2-0.9) 10^3/u L Eos # (Auto) (0.0-0.8) 10^3/u L Baso # (Auto) (0.0-0.1) 10^3/u L Nucleated RBC % (a uto) % Nucleated RBCs # /100WBC Sodium (136-145) mmol/L Potassium (3.5-5.1) mmol/L Chloride (98-107) mmol/L Carbon Dioxide (22-29) mmol/L Anion Gap (5-19) BUN (8-23) mg/dL Creatinine (0.5-0.9) mg/dL GFR Calculation (90-130) mL/min Glucose (65-115) mg/dL Calculated Osmolal ity (285-295) mOsm/k g Calcium (8.5-10.5) mg/dL Total Bilirubin (0.15-1.2) mg/dL AST (0-32) U/L ALT (0-33) U/L Alkaline Phosphata se (35-105) IU/L Troponin T Baselin e (0-10) ng/L NT-Pro-B Natriuret Pep (0-125) pg/mL Total Protein (6.6-8.7) g/dL Albumin (3.5-5.2) g/dL Globulin (1.3-4.6) g/dL SARS-CoV-2 Ag (Rap id) Negative (Negative) COVID Results: SARS-CoV-2 Antigen (Rapid) Negative (Negative) 03/03/20 14:17 03/03/20 Discharge Plan Discharge Patient Disposition: Home Clinical Impression: Acute exacerbation of chronic obstructive pulmonary disease, Bronchitis Condition: Stable Prescriptions: New azithromycin 250 mg tablet See Rx Instructions .ROUTE .COMPLEX Qty: 6 RF: 0 prednisone 20 mg tablet 20 mg PO BID 5 Days Qty: 10 RF: 0 No Action (DME) lace up ankle brace See Rx Instructions .Route .MEDSUPPLY Qty: 1 RF: 0 duloxetine 60 mg capsule,delayed release(DR/EC) 60 mg PO BID Qty: 60 RF: 2 potassium chloride 8 mEq capsule, extended release 8 meq PO DAILY Qty: 30 RF: 2 albuterol sulfate 2.5 mg /3 mL (0.083 %) solution for nebulization 2.5 mg INHALATION Q4H PRN (Reason: shortness of breath or wheezing) 30 Days Qty: 75 RF: 2 budesonide [Pulmicort] 1 mg/2 mL suspension for nebulization 1 mg INHALATION BID Qty: 60 RF: 2 cholecalciferol (vitamin D3) [Vitamin D3] 125 mcg (5,000 unit) tablet 5,000 unit PO DAILY Qty: 30 RF: 2 clopidogrel [Plavix] 75 mg tablet 75 mg PO DAILY Qty: 30 RF: 2 furosemide [Lasix] 20 mg tablet 20 mg PO QAM PRN (Reason: edema) Qty: 30 RF: 2 cyclobenzaprine 10 mg tablet 10 mg PO TID PRN (Reason: Muscle Spasm) Qty: 30 RF: 2 gabapentin 300 mg capsule See Rx Instructions .ROUTE .COMPLEX Qty: 150 RF: 2 hydroxyzine HCl 50 mg tablet 50 mg PO BID PRN (Reason: anxiety) Qty: 60 RF: 2 lisinopril 40 mg tablet 40 mg PO DAILY Qty: 30 RF: 2 rosuvastatin 40 mg tablet 40 mg PO BEDTIME Qty: 30 RF: 2 nystatin 100,000 unit/gram powder 1 applic TOPICAL TID Qty: 60 RF: 2 pantoprazole [Protonix] 40 mg tablet,delayed release (DR/EC) 40 mg PO BID 30 Days Qty: 60 RF: 3 (DME) Wheelchair See Rx Instructions .ROUTE .MEDSUPPLY Qty: 1 RF: 0 carvedilol 25 mg tablet 25 mg PO BID Qty: 60 RF: 5 meclizine 25 mg tablet 25 mg PO BID PRN (Reason: Dizziness Or Vertigo) Qty: 30 RF: 0 B Complex Plus Vitamin C [id number] mg capsule 1 cap PO DAILY Qty: 30 RF: 0 Discharge Orders: Discharge ED (Routine); Ordered 03/03/20 Ordered By: Rah Smith Referrals: Jadiel Munoz FNP-C [Primary Care Provider] - Coding Level of Care Code ED Flange Machine Operator for Chg Fwd Exam Detailed
[2020-03-03 14:33] LABS: Basophils % 0.3 %; Eosinophils # 0.1 10^3/uL (0.0-0.8); Eosinophils % 1.1 %; Hematocrit 39.3 % (37.0-47.0); Hemoglobin 11.4 g/dL (11.5-15.3); Lymphocytes # 1.2 10^3/uL (0.8-4.8); Lymphocytes % 19.1 %; Mean Corpuscular Hemoglobin 23.2 pg (28.0-34.0); Mean Corpuscular Volume 79.9 fL (81-99); Mean Platelet Volume 9.9 fL (7.4-10.4); Monocytes # 0.3 10^3/uL (0.2-0.9); Monocytes % 4.3 %; Neutrophils # 4.67 10^3/uL (1.8-7.7); Nucleated Red Blood Cells % 0 %; Platelet Count 202 10^3/cmm (130-400); Red Blood Count 4.92 10^6/uL (4.1-5.3); Red Cell Distribution Width 19.2 % (12.1-15.1); White Blood Count 6.2 10^3/uL (4.0-10.0)
[2020-03-03 14:56] LABS: SARS Covid-2 Antigen Negative (Negative)
[2020-03-03 15:02] LABS: Troponin(5th) Baseline 12 ng/L (0-10)
[2020-03-03 15:14] LABS: Alanine Aminotransferase 23 U/L (0-33); Albumin Level 3.4 g/dL (3.5-5.2); Alkaline Phosphatase 100 IU/L (35-105); Anion Gap 11.6 (5-19); Aspartate Amino Transferase 50 U/L (0-32); Blood Urea Nitrogen 6 mg/dL (8-23); Calcium 8.8 mg/dL (8.5-10.5); Carbon Dioxide 30 mmol/L (22-29); Chloride 103 mmol/L (98-107); Globulin 3.1 g/dL (1.3-4.6); Glomerular Filtration Rate 73.2 mL/min (90-130); Glucose 98 mg/dL (65-115); NT Pro B Type Natriuretic Pept 89 pg/mL (0-125); Osmolality Calculated 290 mOsm/kg (285-295); Potassium 3.6 mmol/L (3.5-5.1); Sodium 141 mmol/L (136-145); Total Bilirubin 0.4 mg/dL (0.15-1.2); Total Protein 6.5 g/dL (6.6-8.7)
[2020-03-03] MEDS: ipratropium-albuterol 3 mL Neb INHALATION (15:43)
== END 2020-03-03 16:01 | disposition home or self-care (01) ==
PROVIDERS: Emergency Provider Emergency Medicine; PCP Nurse Practitioner
DX: J44.0 Chronic obstructive pulmonary disease with (acute) lower respiratory infection (principal); J20.9 Acute bronchitis, unspecified; J44.1 Chronic obstructive pulmonary disease with (acute) exacerbation; Z79.02 Long term (current) use of antithrombotics/antiplatelets; I25.10 Atherosclerotic heart disease of native coronary artery without angina pectoris; I10 Essential (primary) hypertension; E78.2 Mixed hyperlipidemia; F17.210 Nicotine dependence, cigarettes, uncomplicated
CPT/HCPCS: 12345; 71045; 80053; 83880; 84484; 85025; 87426; 93005; 94640; 99282; 99283; 99284; J3535

== ENCOUNTER 2020-03-05 12:09 | Inpatient (IN) | payer MEDICARE, MEDICAID, SELFPAY ==
[2020-03-05] VITALS (14 sets, daily range): BP systolic 122–158; BP diastolic 54–86; PULSE 52–102; RESP 14–28; TEMP 36.6; O2SAT 88–99; BMI 44.6
--- NOTE | 2020-03-05 12:47 | XRR_ITS ---
PROCEDURE INFORMATION: Exam: XR Chest, 1 View Exam date and time: 03/05/2020 1:30 PM Age: 59 years old Clinical indication: Cough; Additional info: Cough/congestion TECHNIQUE: Imaging protocol: XR of the chest Views: 1 view. COMPARISON: CR (CHEST, ) 03/03/2020 1:45 PM FINDINGS: Lungs: Hypoinflation, without focal infiltrate. Pleural space: No significant pleural effusion. Heart/Mediastinum: borderline cardiomegaly and epicardial fat. Bones/joints: Degenerative change. When correlating with the previous study, no significant interval changes are present. XR/XR chest 1V portable [id number] IMPRESSION: Hypoinflation, without focal infiltrate.
--- NOTE | 2020-03-05 12:53 | W.ED.COVID ---
Documented by User: CHESTER Aguilar 03/07/20 06:59 HPI - COVID General: Chief Complaint: COVID symptoms Stated Complaint: COVID LIKE SYMPTOMS Time Seen by Provider: 03/05/20 12:46 Source: patient and EMS Mode of arrival: EMS Limitations: no limitations Triage information: Has fever, cough or shortness of breath. Exposure to COVID + person last 14 days History of Present Illness: HPI Narrative: 59-year-old female patient presents to the emergency department via EMS with complaints of cough and congestion, increased shortness of breath. She was diagnosed with COPD, bronchitis on 03/03/2020. Tested negative for COVID-19, rapid screen 03/03/2020. She reports continued progression of symptoms, states feels worse today with onset of nausea vomiting. She reports Covid type symptoms since February 23, 2020. She has exposure to a caregiver who tested positive for Covid. Last contact with caregiver was Wednesday, February 26, 2020. She reports was contacted by the [facility] today with caregivers result of Covid testing. She reports onset of diarrhea with initial symptoms but diarrhea has resolved approximately 1 week ago. Oxygen saturation 88% on room air, she was placed on 2 L nasal cannula, denies use of oxygen at home. MD complaint: reported COVID exposure and has COVID symptoms Prior covid testing: yes, results known Prior testing date: 03/03/20 COVID 19 common symptoms: positive chills, cough, productive cough, dyspnea, fatigue, body aches, nausea and vomiting; negative fever(s), headache(s), throat pain, nasal congestion or diarrhea COVID 19 other sytmptoms: negative chest pain Onset (ago): week(s) (1-2) Severity: moderate and slowly worsening Pertinent comorbid conditions: heart disease, COPD/respiratory disease, tobacco use/smoking, obesity and recent ED visit for same complaint Treatment prior to arrival: other (Azithromycin, states did not get prednisone filled) COVID Results: SARS-CoV-2 Antigen (Rapid) Positive (Negative) H 03/05/20 13:10 03/05/20 Nasal/Oral Coronavirus 2019 PCR Pending 03/05/20 13:10 03/05/20 Review of Systems General: Reports: 10 or more systems reviewed and unremarkable except in HPI and below Const: Reports: chills, body aches, change in appetite, fatigue and malaise; Denies: fever(s) Eyes: Denies: blurry vision, eye discomfort, eye redness or yellow eyes ENMT: Denies: throat pain, hoarseness, dental pain, change in hearing, disequilibrium, nasal discharge or nasal congestion Card: Reports: dyspnea on exertion and orthopnea; Denies: chest pain, palpitations, irregular heart rhythm or swelling of feet/ankles Resp: Reports: dyspnea, productive cough, wheezing and chest congestion; Denies: hemoptysis GI: Reports: abdominal pain (RUQ), nausea and vomiting; Denies: heartburn, diarrhea, constipation or belching : Denies: difficulty voiding or dysuria Musc: Reports: muscle weakness; Denies: neck pain, back pain, joint pain, joint swelling or muscle cramps Skin/Breast: Denies: rash or pruritus Neuro: Denies: headache(s), weakness in extremities or behavioral changes Psych: Reports: anxiety and depression Issac/Lymph: Denies: easy bruising PFSH ED PFSH: Medical History Alcohol abuse -Long history of documented chronic alcohol abuse; acutely intoxicated resulting in fall and subsequent right trimalleolar fracture -EtOH level-206 -with timeline since last drink, less likely to experience alcohol withdrawal -CIWA protocol, thiamine/MVI/folate daily -fall/seizure/aspiration precautions -1:1 monitoring no longer required as mental status improved Anxiety and depression CAD (coronary artery disease) -has known hx of CAD with prior stenting -on ASA, plavix, statin Chronic obstructive pulmonary disease, unspecified Essential (primary) hypertension Hyperglycemia Intervertebral disc disorder with radiculopathy of lumbar region Mixed hyperlipidemia Morbid obesity -BMI-52 kg/m2 Osteoarthritis, chronic Personal history of nicotine dependence Vitamin D deficiency Surgical History H/O esophagogastroduodenoscopy 05/04/2019: Status post gastric bypass with grade B esophagitis History of 2 sections History of cholecystectomy History of coronary artery stent placement History of gastric bypass History of hysterectomy History of left hip replacement History of right hip replacement S/P foot surgery, right Gangrene Status post colonoscopy with polypectomy 05/04/2019: Descending colon polyp Family History Grandmother Hypertension Mother Hypertension Denies family history of Anesthesia complication Bleeding disorder Cancer Social History Smoking and tobacco status: current every day smoker cigarettes Packs smoked per day: 0.5 Second hand smoke exposure: Yes Smoking risk assessment/counseling performed?: Yes Alcohol intake: current Alcohol intake frequency: 3 or more drinks per day Alcohol type: hard liquor Desire information about alcohol rehabilitation?: No Counseling given: No Last alcohol use date: 06/16/19 Desire information about substance/drug rehabilitation?: No Counseling given: No Adopted: No Caregiver/support person: No Lives independently: Yes Household members: significant other Housing: House Marital status: Single Number of children: 3 service: No Current occupational status: unemployed History of recent travel: No Current gender identity: Female Physical Exam Const: COMMON NORMALS: patient oriented x3, alert and well nourished GENERAL APPEARANCE: cooperative, anxious, disheveled and ill appearing NUTRITIONAL APPEARANCE: obese ORIENTATION/CONSCIOUSNESS: Yes awake, Yes oriented to person, Yes oriented to place and Yes oriented to time HENMT: COMMON NORMALS: normocephalic, atraumatic, Normal external nose present and moist oral mucous membranes HEAD & SCALP: normal to inspection, normocephalic and atraumatic NOSE: Normal external nose present THROAT: posterior oropharynx normal and uvula midline Eye: COMMON NORMALS: Equal, round and reactive pupils present and EOMs intact bilaterally GENERAL EYE: appearance normal, both eyes and all related structures PUPIL: Yes Equal, round and reactive pupils present Neck/C-Spine: COMMON NORMALS: full ROM and no lymphadenopathy GENERAL: Yes normal visual inspection and Yes trachea midline CERVICAL SPINE: Yes cervical ROM normal Lymph: LYMPHATIC: no lymphadenopathy noted Chest: COMMONS NORMALS: normal inspection of the chest and normal palpation of entire chest wall Resp: COMMON NORMALS: normal respiratory effort and clear to auscultation bilaterally EFFORT & INSPECTION: Yes symmetric chest movement, Yes labored and Yes Actively coughing AUSCULTATION: clear to auscultation bilaterally, rhonchi and wheezes Cardio: COMMON NORMALS: regular rate, regular rhythm, S1 normal heart sound present, S2 normal heart sound present and Peripheral pulses 2+ throughout RATE: regular rate RHYTHM: regular rhythm HEART SOUNDS: S1 normal heart sound present and S2 normal heart sound present PERIPHERAL PULSES: Peripheral pulses 2+ throughout GI: COMMON NORMALS: Soft to palpation INSPECTION: Yes normal to inspection, No abdominal wall ecchymosis, No abdominal distension, Yes central obesity, No visible herniation, No visible pulsation and No GI erythema present PALPATION: Yes Soft to palpation and Yes Tenderness to palpation present (GI) Details: RUQ : COMMON NORMALS: Yes no CVA tenderness BLADDER/KIDNEY EXAM: Yes no CVA tenderness Back/Pelvis: COMMON NORMALS: no CVA tenderness and thoracic and lumbar spine normal to inspection Extremity: COMMON NORMALS: normal to inspection, full ROM and capillary refill normal GENERAL: Yes normal exam except as noted RIGHT LOWER EXTREMITY: Yes lower leg (healing of scar to the medial side, ankle, pedal edema noted 1 +) Neuro: ERI COMA SCALE: document GCS findings Hancock coma scale eye opening: Spontaneous Eri coma scale verbal response: Orientated Eri coma scale motor response: Obey commands Eri coma scale total score: 15 COMMON NORMALS: patient oriented x3 and no focal motor deficits SENSORIUM/ORIENTATION: Yes alert, Yes oriented to person, Yes oriented to place and Yes oriented to time SPEECH: speech normal MOTOR EXAM: Other motor observations present (Generalized weakness noted) Psych: COMMON NORMALS: mental status grossly normal, Normal thought process present and cooperative ACTIVITY/MOTOR BEHAVIOR: Yes appropriate eye contact THOUGHT PROCESS: Normal thought process present Skin: COMMON NORMALS: no rashes or lesions noted and turgor normal GENERAL SKIN EXAM: no rashes or lesions noted and turgor normal Course Vital Signs: Vital signs: Vital Signs Temperature 97.7 F 03/07/20 04:00 Pulse Rate 69 03/07/20 05:00 Respiratory Rate 18 03/07/20 04:55 Blood Pressure 99/56 03/07/20 04:00 Pulse Oximetry 98 03/07/20 04:55 MDM - COVID Differential Diagnosis: Differential diagnosis: Likely COVID 19, influenza, copd exacerbation and pulmonary embolism Lab Data: Labs: Lab Results 03/05/20 03/05/20 03/05/20 Range/Units 12:25 12:25 12:25 WBC 12.1 H (4.0-10.0) 10^3/ uL RBC 4.83 (4.1-5.3) 10^6/u L Hgb 11.4 L (11.5-15.3) g/dL Hct 39.5 (37.0-47.0) % MCV 81.8 (81-99) fL MCH 23.6 L (28.0-34.0) pg MCHC 28.9 L (30.0-36.0) g/dL RDW 19.6 H (12.1-15.1) % Plt Count 233 (130-400) 10^3/c mm MPV 9.9 (7.4-10.4) fL Neut % (Auto) 76.8 % Lymph % (Auto) 15.1 % [place] % (Auto) 7.3 % Eos % (Auto) 0.1 % Baso % (Auto) 0.2 % Neut # (Auto) 9.32 H (1.8-7.7) 10^3/u L Lymph # (Auto) 1.8 (0.8-4.8) 10^3/u L [place] # (Auto) 0.9 (0.2-0.9) 10^3/u L Eos # (Auto) 0.0 (0.0-0.8) 10^3/u L Baso # (Auto) 0.0 (0.0-0.1) 10^3/u L Nucleated RBC % (a uto) 0 % Nucleated RBCs # 0.0 /100WBC ESR 41 H (0-15) mm/hr D-Dimer 1.28 H (0-0.59) ug/mIFE U Specimen Type Sample Site ABG pH (7.35-7.45) ABG pCO2 (35-45) mmHg ABG pO2 (80.0-100.0) mmH g ABG HCO3 (22-26) mmol/L ABG O2 Saturation ABG Base Excess (-2.0-2.0) mmol/ L Amrit Test A-a O2 Gradient (5-10) mmHg Hematocrit (37-47) % Hgb O2 Saturation (95-100) % Carboxyhemoglobin (0.4-20.1) %THgb Methemoglobin (0.4-1.5) % Total Hemoglobin (12-16) g/dL Ionized Calcium (1.1-1.4) mmol/L O2 Delivery Device O2 Liters/Min % FiO2 % Smocking Machine Operator ID Sodium (136-145) mmol/L Potassium (3.5-5.1) mmol/L Chloride (98-107) mmol/L Carbon Dioxide (22-29) mmol/L Anion Gap (5-19) BUN (8-23) mg/dL Creatinine (0.5-0.9) mg/dL GFR Calculation (90-130) mL/min Glucose (65-115) mg/dL Calculated Osmolal ity (285-295) mOsm/k g Lactate (0.5-2.2) mmol/L Calcium (8.5-10.5) mg/dL Total Bilirubin (0.15-1.2) mg/dL AST (0-32) U/L ALT (0-33) U/L Alkaline Phosphata se (35-105) IU/L Troponin T Baselin e (0-10) ng/L Troponin T 120 Min [place] (0-10) ng/L Delta Troponin T (0-10) ABS# C-Reactive Protein (0.0-4.9) mg/L NT-Pro-B Natriuret Pep (0-125) pg/mL Total Protein (6.6-8.7) g/dL Albumin (3.5-5.2) g/dL Globulin (1.3-4.6) g/dL Lipase (13-60) U/L Procalcitonin (0-0.5) ng/mL Urine Color (Yellow) Urine Appearance (CLEAR) Urine pH (5-7) Ur Specific Gravit y (1.005-1.030) Urine Protein (Negative) Urine Glucose (UA) (Normal) Urine Ketones (Negative) Urine Blood (Negative) Urine Nitrate (Negative) Urine Bilirubin (Negative) Urine Urobilinogen (Negative) mg/dL Ur Leukocyte Kitty ase (Negative) Urine RBC (0-2) /hpf Urine WBC (0-5) /hpf Ur Squamous Epith Cells (0-5) /hpf Amorphous Sediment Urine Bacteria (NONE) /hpf Coarse Granular Ca sts /lpf Urine Mucus /hpf Influenza Type A A g (Negative) Influenza Type B A g (Negative) SARS-CoV-2 Ag (Rap id) (Negative) 03/05/20 03/05/20 03/05/20 Range/Units 12:25 12:25 12:25 WBC (4.0-10.0) 10^3/ uL RBC (4.1-5.3) 10^6/u L Hgb (11.5-15.3) g/dL Hct (37.0-47.0) % MCV (81-99) fL MCH (28.0-34.0) pg MCHC (30.0-36.0) g/dL RDW (12.1-15.1) % Plt Count (130-400) 10^3/c mm MPV (7.4-10.4) fL Neut % (Auto) % Lymph % (Auto) % [place] % (Auto) % Eos % (Auto) % Baso % (Auto) % Neut # (Auto) (1.8-7.7) 10^3/u L Lymph # (Auto) (0.8-4.8) 10^3/u L [place] # (Auto) (0.2-0.9) 10^3/u L Eos # (Auto) (0.0-0.8) 10^3/u L Baso # (Auto) (0.0-0.1) 10^3/u L Nucleated RBC % (a uto) % Nucleated RBCs # /100WBC ESR (0-15) mm/hr D-Dimer (0-0.59) ug/mIFE U Specimen Type Sample Site ABG pH (7.35-7.45) ABG pCO2 (35-45) mmHg ABG pO2 (80.0-100.0) mmH g ABG HCO3 (22-26) mmol/L ABG O2 Saturation ABG Base Excess (-2.0-2.0) mmol/ L Amrit Test A-a O2 Gradient (5-10) mmHg Hematocrit (37-47) % Hgb O2 Saturation (95-100) % Carboxyhemoglobin (0.4-20.1) %THgb Methemoglobin (0.4-1.5) % Total Hemoglobin (12-16) g/dL Ionized Calcium (1.1-1.4) mmol/L O2 Delivery Device O2 Liters/Min % FiO2 % Smocking Machine Operator ID Sodium 138 (136-145) mmol/L Potassium 3.8 (3.5-5.1) mmol/L Chloride 102 (98-107) mmol/L Carbon Dioxide 25 (22-29) mmol/L Anion Gap 14.8 (5-19) BUN 14 (8-23) mg/dL Creatinine 1.2 H (0.5-0.9) mg/dL GFR Calculation 45.8 L (90-130) mL/min Glucose 78 (65-115) mg/dL Calculated Osmolal ity 285 (285-295) mOsm/k g Lactate 1.5 (0.5-2.2) mmol/L Calcium 9.0 (8.5-10.5) mg/dL Total Bilirubin 0.3 (0.15-1.2) mg/dL AST 61 H (0-32) U/L ALT 24 (0-33) U/L Alkaline Phosphata se 92 (35-105) IU/L Troponin T Baselin e 18 H (0-10) ng/L Troponin T 120 Min [place] (0-10) ng/L Delta Troponin T (0-10) ABS# C-Reactive Protein 4.5 (0.0-4.9) mg/L NT-Pro-B Natriuret Pep 137 H (0-125) pg/mL Total Protein 7.0 (6.6-8.7) g/dL Albumin 3.3 L (3.5-5.2) g/dL Globulin 3.7 (1.3-4.6) g/dL Lipase 23 (13-60) U/L Procalcitonin 0.08 (0-0.5) ng/mL Urine Color (Yellow) Urine Appearance (CLEAR) Urine pH (5-7) Ur Specific Gravit y (1.005-1.030) Urine Protein (Negative) Urine Glucose (UA) (Normal) Urine Ketones (Negative) Urine Blood (Negative) Urine Nitrate (Negative) Urine Bilirubin (Negative) Urine Urobilinogen (Negative) mg/dL Ur Leukocyte Kitty ase (Negative) Urine RBC (0-2) /hpf Urine WBC (0-5) /hpf Ur Squamous Epith Cells (0-5) /hpf Amorphous Sediment Urine Bacteria (NONE) /hpf Coarse Granular Ca sts /lpf Urine Mucus /hpf Influenza Type A A g (Negative) Influenza Type B A g (Negative) SARS-CoV-2 Ag (Rap id) (Negative) 03/05/20 03/05/20 03/05/20 Range/Units 13:10 13:10 14:20 WBC (4.0-10.0) 10^3/ uL RBC (4.1-5.3) 10^6/u L Hgb (11.5-15.3) g/dL Hct (37.0-47.0) % MCV (81-99) fL MCH (28.0-34.0) pg MCHC (30.0-36.0) g/dL RDW (12.1-15.1) % Plt Count (130-400) 10^3/c mm MPV (7.4-10.4) fL Neut % (Auto) % Lymph % (Auto) % [place] % (Auto) % Eos % (Auto) % Baso % (Auto) % Neut # (Auto) (1.8-7.7) 10^3/u L Lymph # (Auto) (0.8-4.8) 10^3/u L [place] # (Auto) (0.2-0.9) 10^3/u L Eos # (Auto) (0.0-0.8) 10^3/u L Baso # (Auto) (0.0-0.1) 10^3/u L Nucleated RBC % (a uto) % Nucleated RBCs # /100WBC ESR (0-15) mm/hr D-Dimer (0-0.59) ug/mIFE U Specimen Type Sample Site ABG pH (7.35-7.45) ABG pCO2 (35-45) mmHg ABG pO2 (80.0-100.0) mmH g ABG HCO3 (22-26) mmol/L ABG O2 Saturation ABG Base Excess (-2.0-2.0) mmol/ L [place]rit Test A-a O2 Gradient (5-10) mmHg Hematocrit (37-47) % Hgb O2 Saturation (95-100) % Carboxyhemoglobin (0.4-20.1) %THgb Methemoglobin (0.4-1.5) % Total Hemoglobin (12-16) g/dL Ionized Calcium (1.1-1.4) mmol/L O2 Delivery Device O2 Liters/Min % FiO2 % Smocking Machine Operator ID Sodium (136-145) mmol/L Potassium (3.5-5.1) mmol/L Chloride (98-107) mmol/L Carbon Dioxide (22-29) mmol/L Anion Gap (5-19) BUN (8-23) mg/dL Creatinine (0.5-0.9) mg/dL GFR Calculation (90-130) mL/min Glucose (65-115) mg/dL Calculated Osmolal ity (285-295) mOsm/k g Lactate (0.5-2.2) mmol/L Calcium (8.5-10.5) mg/dL Total Bilirubin (0.15-1.2) mg/dL AST (0-32) U/L ALT (0-33) U/L Alkaline Phosphata se (35-105) IU/L Troponin T Baselin e (0-10) ng/L Troponin T 120 Min [place] 17.34 H (0-10) ng/L Delta Troponin T -0.66 L (0-10) ABS# C-Reactive Protein (0.0-4.9) mg/L NT-Pro-B Natriuret Pep (0-125) pg/mL Total Protein (6.6-8.7) g/dL Albumin (3.5-5.2) g/dL Globulin (1.3-4.6) g/dL Lipase (13-60) U/L Procalcitonin (0-0.5) ng/mL Urine Color (Yellow) Urine Appearance (CLEAR) Urine pH (5-7) Ur Specific Gravit y (1.005-1.030) Urine Protein (Negative) Urine Glucose (UA) (Normal) Urine Ketones (Negative) Urine Blood (Negative) Urine Nitrate (Negative) Urine Bilirubin (Negative) Urine Urobilinogen (Negative) mg/dL Ur Leukocyte [place] (Negative) Urine RBC (0-2) /hpf Urine WBC (0-5) /hpf Ur Squamous Epith Cells (0-5) /hpf Amorphous Sediment Urine Bacteria (NONE) /hpf Coarse Granular Ca sts /lpf Urine Mucus /hpf Influenza Type A A g Negative (Negative) Influenza Type B A g Negative (Negative) SARS-CoV-2 Ag (Rap id) Positive H (Negative) 03/05/20 03/05/20 Range/Units 15:00 16:40 WBC (4.0-10.0) 10^3/ uL RBC (4.1-5.3) 10^6/u L Hgb (11.5-15.3) g/dL Hct (37.0-47.0) % MCV (81-99) fL MCH (28.0-34.0) pg MCHC (30.0-36.0) g/dL RDW (12.1-15.1) % Plt Count (130-400) 10^3/c mm MPV (7.4-10.4) fL Neut % (Auto) % Lymph % (Auto) % [place] % (Auto) % Eos % (Auto) % Baso % (Auto) % Neut # (Auto) (1.8-7.7) 10^3/u L Lymph # (Auto) (0.8-4.8) 10^3/u L [place] # (Auto) (0.2-0.9) 10^3/u L Eos # (Auto) (0.0-0.8) 10^3/u L Baso # (Auto) (0.0-0.1) 10^3/u L Nucleated RBC % (a uto) % Nucleated RBCs # /100WBC ESR (0-15) mm/hr D-Dimer (0-0.59) ug/mIFE U Specimen Type Arterial Sample Site Radial, left ABG pH 7.36 (7.35-7.45) ABG pCO2 49.9 H (35-45) mmHg ABG pO2 81.9 (80.0-100.0) mmH g ABG HCO3 27.9 H (22-26) mmol/L ABG O2 Saturation 96.8 ABG Base Excess 1.7 (-2.0-2.0) mmol/ L Amrit Test Pos A-a O2 Gradient 7.4 (5-10) mmHg Hematocrit 33.4 L (37-47) % Hgb O2 Saturation 93.1 L (95-100) % Carboxyhemoglobin 2.9 (0.4-20.1) %THgb Methemoglobin 0.9 (0.4-1.5) % Total Hemoglobin 10.9 L (12-16) g/dL Ionized Calcium 1.2 (1.1-1.4) mmol/L O2 Delivery Device Nc O2 Liters/Min 2.0 % FiO2 28.0 % Smocking Machine Operator ID Ed Sodium 143.0 (136-145) mmol/L Potassium 3.7 (3.5-5.1) mmol/L Chloride (98-107) mmol/L Carbon Dioxide (22-29) mmol/L Anion Gap (5-19) BUN (8-23) mg/dL Creatinine (0.5-0.9) mg/dL GFR Calculation (90-130) mL/min Glucose 86.0 (65-115) mg/dL Calculated Osmolal ity (285-295) mOsm/k g Lactate (0.5-2.2) mmol/L Calcium (8.5-10.5) mg/dL Total Bilirubin (0.15-1.2) mg/dL AST (0-32) U/L ALT (0-33) U/L Alkaline Phosphata se (35-105) IU/L Troponin T Baselin e (0-10) ng/L Troponin T 120 Min [place] (0-10) ng/L Delta Troponin T (0-10) ABS# C-Reactive Protein (0.0-4.9) mg/L NT-Pro-B Natriuret Pep (0-125) pg/mL Total Protein (6.6-8.7) g/dL Albumin (3.5-5.2) g/dL Globulin (1.3-4.6) g/dL Lipase (13-60) U/L Procalcitonin (0-0.5) ng/mL Urine Color Yellow (Yellow) Urine Appearance Sl hazy (CLEAR) Urine pH 5.0 (5-7) Ur Specific Gravit y 1.015 (1.005-1.030) Urine Protein 2+ H (Negative) Urine Glucose (UA) Norm (Normal) Urine Ketones Negative (Negative) Urine Blood 2+ H (Negative) Urine Nitrate Negative (Negative) Urine Bilirubin Neg (Negative) Urine Urobilinogen 1 H (Negative) mg/dL Ur Leukocyte Kitty ase Negative (Negative) Urine RBC 0-4 H (0-2) /hpf Urine WBC 10-15 H (0-5) /hpf Ur Squamous Epith Cells 25-40 H (0-5) /hpf Amorphous Sediment Not Reportable Urine Bacteria 2+ H (NONE) /hpf Coarse Granular Ca sts 0-4 H /lpf Urine Mucus 1+ /hpf Influenza Type A A g (Negative) Influenza Type B A g (Negative) SARS-CoV-2 Ag (Rap id) (Negative) Imaging Data: CXR: Radiologist's impression: [place] [address] XRay Report Signed Patient: Johnna Madsen #: [id number] : 1960Acct#:[id number] Age/Sex: 59 / FADM Date: 03/05/20 Loc: ERRoom/Bed: Attending Dr: Ordering Provider/Ordering MD: Trina Huang Date of Service: 03/05/20 Procedure(s): XR chest 1V portable [id number] Accession Number(s): [id number] Report Number: [id number] PROCEDURE INFORMATION: Exam: XR Chest, 1 View Exam date and time: 03/05/2020 1:30 PM Age: 59 years old Clinical indication: Cough; Additional info: Cough/congestion TECHNIQUE: Imaging protocol: XR of the chest Views: 1 view. COMPARISON: CR (CHEST, ) 03/03/2020 1:45 PM FINDINGS: Lungs: Hypoinflation, without focal infiltrate. Pleural space: No significant pleural effusion. Heart/Mediastinum: borderline cardiomegaly and epicardial fat. Bones/joints: Degenerative change. When correlating with the previous study, no significant interval changes are present. XR/XR chest 1V portable [id number] IMPRESSION: Hypoinflation, without focal infiltrate. Dictated By:Klever Black MD Signed By:Klever Black MDSigned Date/Time:03/05/20 1359 DD/ 1357 CT Chest: Radiologist's impression: [facility] [address] [place] [id number] Scan Report Signed Patient: Johnna Madsen #: [id number] : 1960Acct#:[id number] Age/Sex: 59 / FADM Date: 03/05/20 Loc: ERRoom/Bed: Attending Dr: Ordering Provider/Ordering MD: Trina Huang Date of Service: 03/05/20 Procedure(s): CT angio chest PE protcl [id number] Accession Number(s): [id number] Report Number: [id number] WS: [id number] CT CHEST ANGIOGRAPHY WITH REFORMATS HISTORY: CP, COVID, elevated d-dimer TECHNIQUE: Contiguous axial images are obtained through the chest during arterial injection of intravenous contrast. Images are reconstructed to evaluate the pulmonary arteries. MIP imaging also reviewed. All CT scans at [facility] use at least one of these dose optimization techniques: automated exposure control; mA and/or kV adjustment per patient size (includes targeted exams where dose is matched to clinical indication); or iterative reconstruction. CONTRAST: Visipaque 320; 95 mL IV. DLP: 574.04 mGy.cm COMPARISON: 07/20/2019 Limited opacification of the pulmonary arteries. Quality of examination is limited by contrast injection and body habitus. No pulmonary embolism is identified through the segmental branches. Normal size pulmonary artery. Normal aorta. Heart size is slightly enlarged with increased pericardial fat. Scattered coronary artery calcifications. No pericardial or pleural effusions. There is mild haziness and groundglass attenuation bilaterally. No dense areas of consolidation. No mass. No adenopathy. Mild atherosclerosis aorta. Marked hepatomegaly and hepatic steatosis. Prior cholecystectomy. Calcifications over the splenic surface. Prior gastric bypass. Thoracic spondylosis. CT/CT angio chest PE protcl [id number] IMPRESSION: 1. No PE. Study is limited by body habitus. 2. Mild haziness and groundglass attenuation over both lungs may be secondary to pneumonitis. 3. Hepatic steatosis and hepatomegaly. Dictated By:Caryl Garcia DO Signed By:Caryl Garcia DOSigned Date/Time:03/05/20 1537 DD/ 1534 COVID Results: SARS-CoV-2 Antigen (Rapid) Positive (Negative) H 03/05/20 13:10 03/05/20 Nasal/Oral Coronavirus 2019 PCR Pending 03/05/20 13:10 03/05/20 Discharge Plan Discharge Patient Disposition: Admitted As Inpatient Admit Provider: Luis Daniel Walsh Clinical Impression: Hypoxia, Pneumonia due to 2019 novel coronavirus Condition: Stable Sign Out Sign Out Data: Patient Sign Out occurred on 03/05/20 at 18:29. Patient's care was discussed, and care was transferred from CHESTER Aguilar to Megha Romero MD, [facility]. Sign Out Comment: transfer of care due to need for admission - transfer of care to Dr Romero Last updated by Trina Huang ARNP at 03/05/20 17:44 Coding Level of Care Code ED Plant Operations Coordinator for Chg Fwd Exam Comprehensive Documented by User: Megha Romero MD, [facility] 03/05/20 18:50 HPI - COVID General: Chief Complaint: COVID symptoms Stated Complaint: COVID LIKE SYMPTOMS Time Seen by Provider: 03/05/20 12:46 COVID Results: SARS-CoV-2 Antigen (Rapid) Positive (Negative) H 03/05/20 13:10 03/05/20 Nasal/Oral Coronavirus 2019 PCR Pending 03/05/20 13:10 03/05/20 [facility] PFSH: Medical History Alcohol abuse -Long history of documented chronic alcohol abuse; acutely intoxicated resulting in fall and subsequent right trimalleolar fracture -EtOH level-206 -with timeline since last drink, less likely to experience alcohol withdrawal -CIWA protocol, thiamine/MVI/folate daily -fall/seizure/aspiration precautions -1:1 monitoring no longer required as mental status improved Anxiety and depression CAD (coronary artery disease) -has known hx of CAD with prior stenting -on ASA, plavix, statin Chronic obstructive pulmonary disease, unspecified Essential (primary) hypertension Hyperglycemia Intervertebral disc disorder with radiculopathy of lumbar region Mixed hyperlipidemia Morbid obesity -BMI-52 kg/m2 Osteoarthritis, chronic Personal history of nicotine dependence Vitamin D deficiency Surgical History H/O esophagogastroduodenoscopy 05/04/2019: Status post gastric bypass with grade B esophagitis History of 2 sections History of cholecystectomy History of coronary artery stent placement History of gastric bypass History of hysterectomy History of left hip replacement History of right hip replacement S/P foot surgery, right Gangrene Status post colonoscopy with polypectomy 05/04/2019: Descending colon polyp Family History Grandmother Hypertension Mother Hypertension Denies family history of Anesthesia complication Bleeding disorder Cancer Social History Smoking and tobacco status: current every day smoker cigarettes Packs smoked per day: 0.5 Second hand smoke exposure: Yes Smoking risk assessment/counseling performed?: Yes Alcohol intake: current Alcohol intake frequency: 3 or more drinks per day Alcohol type: hard liquor Desire information about alcohol rehabilitation?: No Counseling given: No Last alcohol use date: 06/16/19 Desire information about substance/drug rehabilitation?: No Counseling given: No Adopted: No Caregiver/support person: No Lives independently: Yes Household members: significant other Housing: House Marital status: Single Number of children: 3 service: No Current occupational status: unemployed History of recent travel: No Current gender identity: Female Course Vital Signs: Vital signs: Vital Signs Temperature 97.7 F 03/07/20 04:00 Pulse Rate 69 03/07/20 05:00 Respiratory Rate 18 03/07/20 04:55 Blood Pressure 99/56 03/07/20 04:00 Pulse Oximetry 98 03/07/20 04:55 MDM - COVID MDM Narrative: Medical decision making narrative: Kindly see the midlevel providers note for complete history and physical examination. Essentially this is a 59-year-old female patient who has been ill for a few days now with fatigue, cough, shortness of breath, loss of taste and smell. She tested positive for COVID-19 here and she was also noted to be hypoxic on evaluation. She needed oxygen to maintain her saturations above 90%. She is also pretty weak and is unsafe to be discharged home so she is admitted for further evaluation and management. She was given a dose of dexamethasone intravenously and intravenous remdesivir while in the emergency department. Lab Data: Labs: Lab Results 03/05/20 03/05/20 03/05/20 Range/Units 12:25 12:25 12:25 WBC 12.1 H (4.0-10.0) 10^3/ uL RBC 4.83 (4.1-5.3) 10^6/u L Hgb 11.4 L (11.5-15.3) g/dL Hct 39.5 (37.0-47.0) % MCV 81.8 (81-99) fL MCH 23.6 L (28.0-34.0) pg MCHC 28.9 L (30.0-36.0) g/dL RDW 19.6 H (12.1-15.1) % Plt Count 233 (130-400) 10^3/c mm MPV 9.9 (7.4-10.4) fL Neut % (Auto) 76.8 % Lymph % (Auto) 15.1 % [place] % (Auto) 7.3 % Eos % (Auto) 0.1 % Baso % (Auto) 0.2 % Neut # (Auto) 9.32 H (1.8-7.7) 10^3/u L Lymph # (Auto) 1.8 (0.8-4.8) 10^3/u L [place] # (Auto) 0.9 (0.2-0.9) 10^3/u L Eos # (Auto) 0.0 (0.0-0.8) 10^3/u L Baso # (Auto) 0.0 (0.0-0.1) 10^3/u L Nucleated RBC % (a uto) 0 % Nucleated RBCs # 0.0 /100WBC ESR 41 H (0-15) mm/hr D-Dimer 1.28 H (0-0.59) ug/mIFE U Specimen Type Sample Site ABG pH (7.35-7.45) ABG pCO2 (35-45) mmHg ABG pO2 (80.0-100.0) mmH g ABG HCO3 (22-26) mmol/L ABG O2 Saturation ABG Base Excess (-2.0-2.0) mmol/ L [place]rit Test A-a O2 Gradient (5-10) mmHg Hematocrit (37-47) % Hgb O2 Saturation (95-100) % Carboxyhemoglobin (0.4-20.1) %THgb Methemoglobin (0.4-1.5) % Total Hemoglobin (12-16) g/dL Ionized Calcium (1.1-1.4) mmol/L O2 Delivery Device O2 Liters/Min % FiO2 % Smocking Machine Operator ID Sodium (136-145) mmol/L Potassium (3.5-5.1) mmol/L Chloride (98-107) mmol/L Carbon Dioxide (22-29) mmol/L Anion Gap (5-19) BUN (8-23) mg/dL Creatinine (0.5-0.9) mg/dL GFR Calculation (90-130) mL/min Glucose (65-115) mg/dL Calculated Osmolal ity (285-295) mOsm/k g Lactate (0.5-2.2) mmol/L Calcium (8.5-10.5) mg/dL Total Bilirubin (0.15-1.2) mg/dL AST (0-32) U/L ALT (0-33) U/L Alkaline Phosphata se (35-105) IU/L Troponin T Baselin e (0-10) ng/L Troponin T 120 Min [place] (0-10) ng/L Delta Troponin T (0-10) ABS# C-Reactive Protein (0.0-4.9) mg/L NT-Pro-B Natriuret Pep (0-125) pg/mL Total Protein (6.6-8.7) g/dL Albumin (3.5-5.2) g/dL Globulin (1.3-4.6) g/dL Lipase (13-60) U/L Procalcitonin (0-0.5) ng/mL Urine Color (Yellow) Urine Appearance (CLEAR) Urine pH (5-7) Ur Specific Gravit y (1.005-1.030) Urine Protein (Negative) Urine Glucose (UA) (Normal) Urine Ketones (Negative) Urine Blood (Negative) Urine Nitrate (Negative) Urine Bilirubin (Negative) Urine Urobilinogen (Negative) mg/dL Ur Leukocyte Kitty [place]se (Negative) Urine RBC (0-2) /hpf Urine WBC (0-5) /hpf Ur Squamous Epith Cells (0-5) /hpf Amorphous Sediment Urine Bacteria (NONE) /hpf Coarse Granular Ca sts /lpf Urine Mucus /hpf Influenza Type A A g (Negative) Influenza Type B A g (Negative) SARS-CoV-2 Ag (Rap id) (Negative) 03/05/20 03/05/20 03/05/20 Range/Units 12:25 12:25 12:25 WBC (4.0-10.0) 10^3/ uL RBC (4.1-5.3) 10^6/u L Hgb (11.5-15.3) g/dL Hct (37.0-47.0) % MCV (81-99) fL MCH (28.0-34.0) pg MCHC (30.0-36.0) g/dL RDW (12.1-15.1) % Plt Count (130-400) 10^3/c mm MPV (7.4-10.4) fL Neut % (Auto) % Lymph % (Auto) % [place] % (Auto) % Eos % (Auto) % Baso % (Auto) % Neut # (Auto) (1.8-7.7) 10^3/u L Lymph # (Auto) (0.8-4.8) 10^3/u L [place] # (Auto) (0.2-0.9) 10^3/u L Eos # (Auto) (0.0-0.8) 10^3/u L Baso # (Auto) (0.0-0.1) 10^3/u L Nucleated RBC % (a uto) % Nucleated RBCs # /100WBC ESR (0-15) mm/hr D-Dimer (0-0.59) ug/mIFE U Specimen Type Sample Site ABG pH (7.35-7.45) ABG pCO2 (35-45) mmHg ABG pO2 (80.0-100.0) mmH g ABG HCO3 (22-26) mmol/L ABG O2 Saturation ABG Base Excess (-2.0-2.0) mmol/ L [place] Test A-a O2 Gradient (5-10) mmHg Hematocrit (37-47) % Hgb O2 Saturation (95-100) % Carboxyhemoglobin (0.4-20.1) %THgb Methemoglobin (0.4-1.5) % Total Hemoglobin (12-16) g/dL Ionized Calcium (1.1-1.4) mmol/L O2 Delivery Device O2 Liters/Min % FiO2 % Smocking Machine Operator ID Sodium 138 (136-145) mmol/L Potassium 3.8 (3.5-5.1) mmol/L Chloride 102 (98-107) mmol/L Carbon Dioxide 25 (22-29) mmol/L Anion Gap 14.8 (5-19) BUN 14 (8-23) mg/dL Creatinine 1.2 H (0.5-0.9) mg/dL GFR Calculation 45.8 L (90-130) mL/min Glucose 78 (65-115) mg/dL Calculated Osmolal ity 285 (285-295) mOsm/k g Lactate 1.5 (0.5-2.2) mmol/L Calcium 9.0 (8.5-10.5) mg/dL Total Bilirubin 0.3 (0.15-1.2) mg/dL AST 61 H (0-32) U/L ALT 24 (0-33) U/L Alkaline Phosphata se 92 (35-105) IU/L Troponin T Baselin e 18 H (0-10) ng/L Troponin T 120 Min [place] (0-10) ng/L Delta Troponin T (0-10) ABS# C-Reactive Protein 4.5 (0.0-4.9) mg/L NT-Pro-B Natriuret Pep 137 H (0-125) pg/mL Total Protein 7.0 (6.6-8.7) g/dL Albumin 3.3 L (3.5-5.2) g/dL Globulin 3.7 (1.3-4.6) g/dL Lipase 23 (13-60) U/L Procalcitonin 0.08 (0-0.5) ng/mL Urine Color (Yellow) Urine Appearance (CLEAR) Urine pH (5-7) Ur Specific Gravit y (1.005-1.030) Urine Protein (Negative) Urine Glucose (UA) (Normal) Urine Ketones (Negative) Urine Blood (Negative) Urine Nitrate (Negative) Urine Bilirubin (Negative) Urine Urobilinogen (Negative) mg/dL Ur Leukocyte Kitty [place] (Negative) Urine RBC (0-2) /hpf Urine WBC (0-5) /hpf Ur Squamous Epith Cells (0-5) /hpf Amorphous Sediment Urine Bacteria (NONE) /hpf Coarse Granular Ca sts /lpf Urine Mucus /hpf Influenza Type A A g (Negative) Influenza Type B A g (Negative) SARS-CoV-2 Ag (Rap id) (Negative) 03/05/20 03/05/20 03/05/20 Range/Units 13:10 13:10 14:20 WBC (4.0-10.0) 10^3/ uL RBC (4.1-5.3) 10^6/u L Hgb (11.5-15.3) g/dL Hct (37.0-47.0) % MCV (81-99) fL MCH (28.0-34.0) pg MCHC (30.0-36.0) g/dL RDW (12.1-15.1) % Plt Count (130-400) 10^3/c mm MPV (7.4-10.4) fL Neut % (Auto) % Lymph % (Auto) % [place] % (Auto) % Eos % (Auto) % Baso % (Auto) % Neut # (Auto) (1.8-7.7) 10^3/u L Lymph # (Auto) (0.8-4.8) 10^3/u L [place] # (Auto) (0.2-0.9) 10^3/u L Eos # (Auto) (0.0-0.8) 10^3/u L Baso # (Auto) (0.0-0.1) 10^3/u L Nucleated RBC % (a uto) % Nucleated RBCs # /100WBC ESR (0-15) mm/hr D-Dimer (0-0.59) ug/mIFE U Specimen Type Sample Site ABG pH (7.35-7.45) ABG pCO2 (35-45) mmHg ABG pO2 (80.0-100.0) mmH g ABG HCO3 (22-26) mmol/L ABG O2 Saturation ABG Base Excess (-2.0-2.0) mmol/ L [place] Test A-a O2 Gradient (5-10) mmHg Hematocrit (37-47) % Hgb O2 Saturation (95-100) % Carboxyhemoglobin (0.4-20.1) %THgb Methemoglobin (0.4-1.5) % Total Hemoglobin (12-16) g/dL Ionized Calcium (1.1-1.4) mmol/L O2 Delivery Device O2 Liters/Min % FiO2 % Smocking Machine Operator ID Sodium (136-145) mmol/L Potassium (3.5-5.1) mmol/L Chloride (98-107) mmol/L Carbon Dioxide (22-29) mmol/L Anion Gap (5-19) BUN (8-23) mg/dL Creatinine (0.5-0.9) mg/dL GFR Calculation (90-130) mL/min Glucose (65-115) mg/dL Calculated Osmolal ity (285-295) mOsm/k g Lactate (0.5-2.2) mmol/L Calcium (8.5-10.5) mg/dL Total Bilirubin (0.15-1.2) mg/dL AST (0-32) U/L ALT (0-33) U/L Alkaline Phosphata se (35-105) IU/L Troponin T Baselin e (0-10) ng/L Troponin T 120 Min [place] 17.34 H (0-10) ng/L Delta Troponin T -0.66 L (0-10) ABS# C-Reactive Protein (0.0-4.9) mg/L NT-Pro-B Natriuret Pep (0-125) pg/mL Total Protein (6.6-8.7) g/dL Albumin (3.5-5.2) g/dL Globulin (1.3-4.6) g/dL Lipase (13-60) U/L Procalcitonin (0-0.5) ng/mL Urine Color (Yellow) Urine Appearance (CLEAR) Urine pH (5-7) Ur Specific Gravit y (1.005-1.030) Urine Protein (Negative) Urine Glucose (UA) (Normal) Urine Ketones (Negative) Urine Blood (Negative) Urine Nitrate (Negative) Urine Bilirubin (Negative) Urine Urobilinogen (Negative) mg/dL Ur Leukocyte [place] (Negative) Urine RBC (0-2) /hpf Urine WBC (0-5) /hpf Ur Squamous Epith Cells (0-5) /hpf Amorphous Sediment Urine Bacteria (NONE) /hpf Coarse Granular Ca sts /lpf Urine Mucus /hpf Influenza Type A A g Negative (Negative) Influenza Type B A g Negative (Negative) SARS-CoV-2 Ag (Rap id) Positive H (Negative) 03/05/20 03/05/20 Range/Units 15:00 16:40 WBC (4.0-10.0) 10^3/ uL RBC (4.1-5.3) 10^6/u L Hgb (11.5-15.3) g/dL Hct (37.0-47.0) % MCV (81-99) fL MCH (28.0-34.0) pg MCHC (30.0-36.0) g/dL RDW (12.1-15.1) % Plt Count (130-400) 10^3/c mm MPV (7.4-10.4) fL Neut % (Auto) % Lymph % (Auto) % [place] % (Auto) % Eos % (Auto) % Baso % (Auto) % Neut # (Auto) (1.8-7.7) 10^3/u L Lymph # (Auto) (0.8-4.8) 10^3/u L [place] # (Auto) (0.2-0.9) 10^3/u L Eos # (Auto) (0.0-0.8) 10^3/u L Baso # (Auto) (0.0-0.1) 10^3/u L Nucleated RBC % (a uto) % Nucleated RBCs # /100WBC ESR (0-15) mm/hr D-Dimer (0-0.59) ug/mIFE U Specimen Type Arterial Sample Site Radial, left ABG pH 7.36 (7.35-7.45) ABG pCO2 49.9 H (35-45) mmHg ABG pO2 81.9 (80.0-100.0) mmH g ABG HCO3 27.9 H (22-26) mmol/L ABG O2 Saturation 96.8 ABG Base Excess 1.7 (-2.0-2.0) mmol/ L Amrit Test Pos A-a O2 Gradient 7.4 (5-10) mmHg Hematocrit 33.4 L (37-47) % Hgb O2 Saturation 93.1 L (95-100) % Carboxyhemoglobin 2.9 (0.4-20.1) %THgb Methemoglobin 0.9 (0.4-1.5) % Total Hemoglobin 10.9 L (12-16) g/dL Ionized Calcium 1.2 (1.1-1.4) mmol/L O2 Delivery Device Nc O2 Liters/Min 2.0 % FiO2 28.0 % Smocking Machine Operator ID Ed Sodium 143.0 (136-145) mmol/L Potassium 3.7 (3.5-5.1) mmol/L Chloride (98-107) mmol/L Carbon Dioxide (22-29) mmol/L Anion Gap (5-19) BUN (8-23) mg/dL Creatinine (0.5-0.9) mg/dL GFR Calculation (90-130) mL/min Glucose 86.0 (65-115) mg/dL Calculated Osmolal ity (285-295) mOsm/k g Lactate (0.5-2.2) mmol/L Calcium (8.5-10.5) mg/dL Total Bilirubin (0.15-1.2) mg/dL AST (0-32) U/L ALT (0-33) U/L Alkaline Phosphata se (35-105) IU/L Troponin T Baselin e (0-10) ng/L Troponin T 120 Min [place] (0-10) ng/L Delta Troponin T (0-10) ABS# C-Reactive Protein (0.0-4.9) mg/L NT-Pro-B Natriuret Pep (0-125) pg/mL Total Protein (6.6-8.7) g/dL Albumin (3.5-5.2) g/dL Globulin (1.3-4.6) g/dL Lipase (13-60) U/L Procalcitonin (0-0.5) ng/mL Urine Color Yellow (Yellow) Urine Appearance Sl hazy (CLEAR) Urine pH 5.0 (5-7) Ur Specific Gravit y 1.015 (1.005-1.030) Urine Protein 2+ H (Negative) Urine Glucose (UA) Norm (Normal) Urine Ketones Negative (Negative) Urine Blood 2+ H (Negative) Urine Nitrate Negative (Negative) Urine Bilirubin Neg (Negative) Urine Urobilinogen 1 H (Negative) mg/dL Ur Leukocyte Kitty [place] Negative (Negative) Urine RBC 0-4 H (0-2) /hpf Urine WBC 10-15 H (0-5) /hpf Ur Squamous Epith Cells 25-40 H (0-5) /hpf Amorphous Sediment Not Reportable Urine Bacteria 2+ H (NONE) /hpf Coarse Granular Ca sts 0-4 H /lpf Urine Mucus 1+ /hpf Influenza Type A A g (Negative) Influenza Type B A g (Negative) SARS-CoV-2 Ag (Rap id) (Negative) COVID Results: SARS-CoV-2 Antigen (Rapid) Positive (Negative) H 03/05/20 13:10 03/05/20 Nasal/Oral Coronavirus 2019 PCR Pending 03/05/20 13:10 03/05/20 Monoclonal Antibody Treatments Inclusion/Exclusion Criteria weight >/= 40 kg and + direct Sars-Cov-2 test less than 7-10 days ago BMI >/= 35 and age >/= 55 and has hypertension needs hospitalization (DO NOT GIVE) and needs oxygen (DO NOT GIVE) Plan for treatment Does not meet criteria (DO NOT GIVE) Discharge Plan Discharge Patient Disposition: Admitted As Inpatient Admit Provider: Luis Daniel Walsh Clinical Impression: Hypoxia, Pneumonia due to 2019 novel coronavirus Condition: Stable Sign Out Sign Out Data: Patient Sign Out occurred on 03/05/20 at 18:29. Patient's care was discussed, and care was transferred from CHESTER Aguilar to Megha Romero MD, [facility]. Sign Out Comment: transfer of care due to need for admission - transfer of care to Dr Romero Last updated by Trina Huang ARNP at 03/05/20 17:44 Coding Level of Care Code ED Plant Operations Coordinator for Chg Fwd Exam Comprehensive
--- NOTE | 2020-03-05 13:04 | ECG_ITS ---
[facility] Test Date: 2020-03-05 Pat Name: Zenaida Madsen Department: Room: Gender: Female Clinical Writer: : 1960 Requested By: Trina Rehman Order Number: [id number] Reading MD: CLAUDY MARKS Measurements Intervals [place] Rate: 64 P: 71 WI: 173 QRS: 34 QRSD: 93 T: 33 QT: 429 QTc: 443 Interpretive Statements SINUS RHYTHM Compared to ECG 03/03/2020 13:29:18 No significant changes Electronically Signed On 03-05-2020 19:57:33 VICE PRESIDENT REGULATORY by CLAUDY MARKS [id number]
[2020-03-05 13:20] LABS: Lactate (Lactic Acid level) 1.5 mmol/L (0.5-2.2)
[2020-03-05] MEDS: sodium chloride 0.9% 500 ML 999 ML IV (13:21)
[2020-03-05 13:22] LABS: D Dimer 1.28 ug/mIFEU (0-0.59)
[2020-03-05 13:23] LABS: Basophils % 0.2 %; Eosinophils % 0.1 %; Hematocrit 39.5 % (37.0-47.0); Hemoglobin 11.4 g/dL (11.5-15.3); Lymphocytes # 1.8 10^3/uL (0.8-4.8); Lymphocytes % 15.1 %; Mean Corpuscular HGB Conc 28.9 g/dL (30.0-36.0); Mean Corpuscular Hemoglobin 23.6 pg (28.0-34.0); Mean Corpuscular Volume 81.8 fL (81-99); Mean Platelet Volume 9.9 fL (7.4-10.4); Monocytes # 0.9 10^3/uL (0.2-0.9); Monocytes % 7.3 %; Neutrophils # 9.32 10^3/uL (1.8-7.7); Neutrophils % 76.8 %; Nucleated Red Blood Cells % 0 %; Platelet Count 233 10^3/cmm (130-400); Red Blood Count 4.83 10^6/uL (4.1-5.3); Red Cell Distribution Width 19.6 % (12.1-15.1); White Blood Count 12.1 10^3/uL (4.0-10.0)
[2020-03-05 13:31] LABS: NT Pro B Type Natriuretic Pept 137 pg/mL (0-125); Procalcitonin 0.08 ng/mL (0-0.5)
[2020-03-05 13:49] LABS: Albumin Level 3.3 g/dL (3.5-5.2); Alkaline Phosphatase 92 IU/L (35-105); Blood Urea Nitrogen 14 mg/dL (8-23); C Reactive Protein 4.5 mg/L (0.0-4.9); Carbon Dioxide 25 mmol/L (22-29); Chloride 102 mmol/L (98-107); Globulin 3.7 g/dL (1.3-4.6); Glomerular Filtration Rate 45.8 mL/min (90-130); Glucose 78 mg/dL (65-115); Lipase 23 U/L (13-60); Osmolality Calculated 285 mOsm/kg (285-295); Sodium 138 mmol/L (136-145); Total Bilirubin 0.3 mg/dL (0.15-1.2)
[2020-03-05 13:50] LABS: Erythrocyte Sedimentation Rate 41 mm/hr (0-15)
[2020-03-05 13:51] LABS: Alanine Aminotransferase 24 U/L (0-33); Anion Gap 14.8 (5-19); Aspartate Amino Transferase 61 U/L (0-32); Potassium 3.8 mmol/L (3.5-5.1); Troponin(5th) Baseline 18 ng/L (0-10)
[2020-03-05 13:56] LABS: Influenza A by IFA Negative (Negative); Influenza B by IFA Negative (Negative); SARS Covid-2 Antigen Positive (Negative)
--- NOTE | 2020-03-05 14:17 | CT_ITS ---
WS: [id number] CT CHEST ANGIOGRAPHY WITH REFORMATS HISTORY: CP, COVID, elevated d-dimer TECHNIQUE: Contiguous axial images are obtained through the chest during arterial injection of intrav enous contrast. Images are reconstructed to evaluate the pulmonary arteries. MIP imaging also reviewe d. All CT scans at [facility] use at least one of these dose optimization techniques: aut omated exposure control; mA and/or kV adjustment per patient size (includes targeted exams where dose is matched to clinical indication); or iterative reconstruction. CONTRAST: Visipaque 320; 95 mL IV. DLP: 574.04 mGy.cm COMPARISON: 07/20/2019 Limited opacification of the pulmonary arteries. Quality of examination is limited by contrast inject ion and body habitus. No pulmonary embolism is identified through the segmental branches. Normal size pulmonary artery. Normal aorta. Heart size is slightly enlarged with increased pericardial fat. Scat tered coronary artery calcifications. No pericardial or pleural effusions. There is mild haziness and groundglass attenuation bilaterally. No dense areas of consolidation. No m ass. No adenopathy. Mild atherosclerosis aorta. Marked hepatomegaly and hepatic steatosis. Prior cholecystectomy. Calcifications over the splenic duc face. Prior gastric bypass. Thoracic spondylosis. CT/CT angio chest PE protcl [id number] IMPRESSION: 1. No PE. Study is limited by body habitus. 2. Mild haziness and groundglass attenuation over both lungs may be secondary to pneumonitis. 3. Hepatic steatosis and hepatomegaly.
[2020-03-05] MEDS: remdesivir 200 MG in sodium chloride 0.9% (100 ml) 100 ML 100 MG IV (14:41)
[2020-03-05] MEDS: dexamethasone 4 mg/mL INJ 10 MG IVP (14:42)
[2020-03-05 15:02] LABS: Troponin 5 2HR 17.34 ng/L (0-10)
[2020-03-05 15:03] LABS: Troponin 5 2HR Delta -0.66 ABS# (0-10)
--- NOTE | 2020-03-05 15:04 | ECG_ITS ---
[facility] Test Date: 2020-03-05 Pat Name: Zenaida Madsen Department: Room: Gender: Female Film Maker: : 1960 Requested By: Trina Rehman Order Number: [id number] Reading MD: CLAUDY MARKS Measurements Intervals [place] Rate: 76 P: 88 RI: 175 QRS: 43 QRSD: 92 T: 37 QT: 411 QTc: 464 Interpretive Statements SINUS RHYTHM WITH OCCASIONAL SUPRAVENTRICULAR PREMATURE COMPLEXES WARNING: DATA QUALITY MAY AFFECT INTERPRETATION Compared to ECG 03/05/2020 13:38:47 No significant changes Electronically Signed On 03-05-2020 20:00:36 TICKET BROKER by CLAUDY MARKS [id number]
[2020-03-05 15:07] LABS: ABG PCO2 49.9 mmHg (35-45); ABG PH Result 7.36 (7.35-7.45); Arterial Blood Gas Hematocrit 33.4 % (37-47); Base Excess ABG 1.7 mmol/L (-2.0-2.0); Blood Gas Allen Test Pos; Blood Gas Sample Type Arterial; Carboxyhemoglobin 2.9 %THgb (0.4-20.1); HCO3 ABG 27.9 mmol/L (22-26); HGB O2 Sat 93.1 % (95-100); Ionized Calcium Level - ABG 1.2 mmol/L (1.1-1.4); Methemoglobin 0.9 % (0.4-1.5); Oxygen Saturation ABG 96.8; PO2 ABG 81.9 mmHg (80.0-100.0); Potassium Level - ABG 3.7 mmol/L (3.5-5.0); Total Hemoglobin 10.9 g/dL (12-16)
[2020-03-05 15:08] LABS: Alveolar-Arterial Oxygen Gradi 7.4 mmHg (5-10); Blood Gas Operator Identificat ED; Blood Gas Sample Site Radial, left; Oxygen Device NC
[2020-03-05] MEDS: iodixanol 320 mg/mL 100mL Btl IV (15:33)
[2020-03-05 16:58] LABS: Add Urine Microscopic? YES; Bilirubin Urine Neg (Negative); Blood Urine 2+ (Negative); Glucose Urine UA Norm (Normal); Ketones Urine Negative (Negative); Leukocyte Esterase Urine Negative (Negative); Nitrate Urine Negative (Negative); Protein Urine 2+ (Negative); Specific Gravity, Urine 1.015 (1.005-1.030); Urine Appearance SL Hazy (CLEAR); Urine Color Yellow (Yellow); Urobilinogen Urine 1 mg/dL (Negative)
[2020-03-05 17:10] LABS: Add Urine Culture? No; Bacteria Urine 2+ /hpf; Coarse Granular Casts Urine 0-4 /lpf; Mucus Urine 1+ /hpf; RBC Urine 0-4 /hpf (0-2); Squamous Epithelial Cell Urine 25-40 /hpf (0-5)
--- NOTE | 2020-03-05 18:06 | PM.HP ---
Providers/Chief Complaint Primary Care Provider: SEAN BrowneC Chief Complaint: COVID LIKE SYMPTOMS History of Present Illness Zenaida Madsen is a 59 year old female with a past medical history of COPD, active smoker, CAD status post 2 stents, alcoholism, obesity, hypertension, hyperlipidemia, anxiety and depression who presents [facility] due to complaints of fatigue, malaise, diarrhea, shortness of breath, chest tightness. Patient tells me that starting on [place] she started to develop shortness of breath with rest and exertion, chest tightness, low-grade fevers, fatigue, malaise, poor appetite. She also has been having bouts of diarrhea, and nausea, she has been finding it difficult to keep down liquids. Denies a history of strokes. Denies history of CHF. Denies a history of diabetes. Review of Systems Const: Reports: fever(s), chills, body aches, change in appetite, fatigue and malaise Eyes: Denies: change in vision or blurry vision ENMT: Denies: nasal congestion Resp: Reports: dyspnea and non-productive cough; Denies: productive cough or wheezing GI: Denies: abdominal pain, nausea, vomiting, hematemesis, diarrhea, constipation, hematochezia or melena : Denies: flank pain, dysuria or urinary frequency Musc: Denies: neck pain or back pain Skin/Breast: Denies: rash Neuro: Denies: headache(s), dizziness or vertigo Psych: Denies: anxiety or depression Endo: Denies: polyuria or polydipsia Medications/Allergies Home Medications Medication Instructions Recorded Confirmed Last Taken Type meclizine 25 mg PO BID PRN #30 tab 06/22/19 03/05/20 08/15/19 Rx lace up ankle brace #1 ea 09/28/19 03/05/20 Unknown Rx Wheelchair #1 each 11/16/19 03/05/20 Unknown Rx albuterol sulfate 2.5 mg INHALATION Q4H PRN 30 Days 01/09/20 03/05/20 Unknown Rx #75 ml cyclobenzaprine 10 mg tablet 10 mg PO TID PRN #30 tab 01/09/20 03/05/20 Unknown Rx gabapentin 300 mg capsule See Rx Instructions .ROUTE 01/09/20 03/05/20 Unknown Rx .COMPLEX #150 cap hydroxyzine HCl 50 mg tablet 50 mg PO BID PRN #60 tab 01/09/20 03/05/20 Unknown Rx azithromycin See Rx Instructions .ROUTE 03/03/20 03/05/20 Unknown Rx .COMPLEX #6 tab B Complex Plus Vitamin C 1 cap PO DAILY@0900 03/05/20 03/05/20 Unknown History Lasix 20 mg PO DAILY PRN 03/05/20 03/05/20 Unknown History Plavix 75 mg PO DAILY@0900 03/05/20 03/05/20 Unknown History Protonix 40 mg PO BID@0900,1800 03/05/20 03/05/20 Unknown History Pulmicort 1 mg INHALATION BID@0900,1800 03/05/20 03/05/20 Unknown History Vitamin D3 5,000 unit PO DAILY@0900 03/05/20 03/05/20 Unknown History carvedilol 25 mg PO BID@0900,1800 03/05/20 03/05/20 Unknown History duloxetine 60 mg PO BID@0900,1800 03/05/20 03/05/20 Unknown History lisinopril 40 mg PO DAILY@0900 03/05/20 03/05/20 Unknown History potassium chloride 8 meq PO DAILY@0900 03/05/20 03/05/20 Unknown History rosuvastatin 40 mg PO BEDTIME@2200 03/05/20 03/05/20 Unknown History Allergies Allergy/AdvReac Type Severity Reaction Status Date / Time ciprofloxacin AdvReac Unknown ADR-Swelling Verified 01/09/20 13:38 of the Eye doxycycline AdvReac Unknown ADR-Vomitin Verified 01/09/20 13:38 g PFSH Acute PFSH: Medical History Alcohol abuse -Long history of documented chronic alcohol abuse; acutely intoxicated resulting in fall and subsequent right trimalleolar fracture -EtOH level-206 -with timeline since last drink, less likely to experience alcohol withdrawal -CIWA protocol, thiamine/MVI/folate daily -fall/seizure/aspiration precautions -1:1 monitoring no longer required as mental status improved Anxiety and depression CAD (coronary artery disease) -has known hx of CAD with prior stenting -on ASA, plavix, statin Chronic obstructive pulmonary disease, unspecified Essential (primary) hypertension Hyperglycemia Intervertebral disc disorder with radiculopathy of lumbar region Mixed hyperlipidemia Morbid obesity -BMI-52 kg/m2 Osteoarthritis, chronic Personal history of nicotine dependence Vitamin D deficiency Surgical History H/O esophagogastroduodenoscopy 05/04/2019: Status post gastric bypass with grade B esophagitis History of 2 sections History of cholecystectomy History of coronary artery stent placement History of gastric bypass History of hysterectomy History of left hip replacement History of right hip replacement S/P foot surgery, right Gangrene Status post colonoscopy with polypectomy 05/04/2019: Descending colon polyp Family History Grandmother Hypertension Mother Hypertension Denies family history of Anesthesia complication Bleeding disorder Cancer Social History Smoking and tobacco status: current every day smoker cigarettes Packs smoked per day: 0.5 Second hand smoke exposure: Yes Smoking risk assessment/counseling performed?: Yes Alcohol intake: current Alcohol intake frequency: 3 or more drinks per day Alcohol type: hard liquor Desire information about alcohol rehabilitation?: No Counseling given: No Last alcohol use date: 06/16/19 Desire information about substance/drug rehabilitation?: No Counseling given: No Adopted: No Caregiver/support person: No Lives independently: Yes Household members: significant other Housing: House Marital status: Single Number of children: 3 service: No Current occupational status: unemployed History of recent travel: No Current gender identity: Female Vitals/I&O/Wt Last Vital Signs Temp 97.8 F 03/05/20 12:20 Pulse 71 03/05/20 17:00 Resp 19 H 03/05/20 17:00 BP 132/72 03/05/20 17:00 Pulse Ox 98 03/05/20 17:00 03/05/20 03/05/20 03/05/20 06:59 14:59 22:59 Intake Total 600 / 600 Balance 600 / 600 Weight last 48 hrs Weight 117.934 kg Physical Exam Const: COMMON NORMALS: no acute distress and patient oriented x3 GENERAL APPEARANCE: cooperative and comfortable HENMT: COMMON NORMALS: normocephalic HEAD & SCALP: normocephalic Eye: COMMON NORMALS: Equal, round and reactive pupils present and EOMs intact bilaterally GENERAL EYE: appearance normal, both eyes and all related structures PUPIL: Yes Equal, round and reactive pupils present Neck/C-Spine: COMMON NORMALS: full ROM, no lymphadenopathy, no JVD and Thyroid normal THYROID: Thyroid normal Lymph: LYMPHATIC: no lymphadenopathy noted Resp: COMMON NORMALS: normal respiratory effort, No retractions, No use of accessory muscles and clear to auscultation bilaterally AUSCULTATION: diminished lung sounds Cardio: COMMON NORMALS: no JVD, regular rate, regular rhythm, S1 normal heart sound present, S2 normal heart sound present, No gallops present (Cardio), No clicks present (Cardio) and No murmurs present (Cardio) RATE: regular rate RHYTHM: regular rhythm HEART SOUNDS: S1 normal heart sound present and S2 normal heart sound present GI: COMMON NORMALS: Normal to inspection, nondistended, normoactive bowel sounds present, Soft to palpation, non-tender and No hepatosplenomegaly present PALPATION: Yes Soft to palpation and Yes No hepatosplenomegaly present Extremity: COMMON NORMALS: normal to inspection, full ROM and no pedal edema Neuro: COMMON NORMALS: patient oriented x3, CN's II-XII intact bilaterally, moves all extremities and no focal motor deficits Psych: COMMON NORMALS: mental status grossly normal, Normal thought process present and cooperative THOUGHT PROCESS: Normal thought process present Data : 03/05/20 12:25 03/05/20 12:25 Micro: Microbiology 03/05/20 13:10 Blood Culture - Preliminary Blood SPECIMEN COLLECTED 03/05/20 13:15 Blood Culture - Preliminary Blood SPECIMEN COLLECTED A&P Assessment and plan (1) Acute respiratory failure with hypoxia: -Secondary COVID-19 pneumonia, viral pneumonitis, secondary bacterial infection, with COPD, obesity, possibly obesity hypoventilation Plan: -Admit to general medical floors -Use BiPAP during the night -Decadron, remdesivir -Rocephin, azithromycin -Advair, Spiriva, albuterol -Vitamin C, zinc -Full code -Lovenox for DVT prophylaxis -History of alcoholism, obtain blood alcohol level, CIWA score -Trend troponins, serial EKGs, obtain cardiac echocardiogram -We will monitor clinical status, patient is a high risk of intubation if she clinically worsens Status: Acute (2) Acute exacerbation of chronic obstructive pulmonary disease: Status: Acute (3) Pneumonia due to COVID-19 virus: Status: Acute (4) Vitamin D deficiency: Status: Acute (5) Morbid obesity: Status: Acute (6) Essential (primary) hypertension: Status: Chronic (7) Chronic obstructive pulmonary disease, unspecified: Status: Chronic (8) CAD (coronary artery disease): Status: Acute (9) Anxiety and depression: Status: Chronic (10) Alcohol abuse: Status: Acute Attestations Medical Necessity Statement*: Patient course hospitalization, inpatient, greater than 2 minutes, for acute hypoxic respiratory failure secondary to COVID-19, secondary bacterial infection, COPD, obesity hypoventilation Coding Level of Care Code 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
--- NOTE | 2020-03-05 19:04 | ECG_ITS ---
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 Measurements Intervals [employer] Rate: 59 P: 76 ID: [id number] QRS: 34 QRSD: 88 T: 35 QT: 459 QTc: 455 Interpretive Statements Possible atrial flutter with variable block Compared to ECG 03/05/2020 15:13:33 Sinus rhythm no longer present Electronically Signed On 03-06-2020 20:18:06 EDUCATIONAL PROGRAM ASSISTANT by Aimee Pelaez M.D. [email or web address] Industrial Products [email or web address] [email or web address]/[id number]
[2020-03-05 19:18] LABS: Troponin 5 6HR 13.08 ng/L (0-10)
[2020-03-06] VITALS (15 sets, daily range): BP systolic 108–145; BP diastolic 68–76; PULSE 52–96; RESP 14–22; TEMP 36.4–36.7; O2SAT 94–99
--- NOTE | 2020-03-06 02:23 | USCV_ITS ---
Zenaida Madsen Age: 59 Gender: F : 1960 Exam Date: 03/06/2020 06:58 Ordering Phys: Luis Daniel Walsh MD Technologist: Bradly Martinez Exam Location: [facility] [place] Indication: SOB BP: 137 / 72 HR: 75 Rhythm: Sinus Technical Quality: Adequate MEASUREMENTS (Male / Female) Normal Values 2D ECHO LV Diastolic Diameter PLAX 2.3 cm 4.2 - 5.9 / 3.9 - 5.3 cm LV Systolic Diameter PLAX 1.6 cm IVS Diastolic Thickness 2.0 cm 0.6 - 1.0 / 0.6 - 0.9 cm IVS Systolic Thickness 2.3 cm LVPW Diastolic Thickness 1.8 cm 0.6 - 1.0 / 0.6 - 0.9 cm LVPW Systolic Thickness 2.0 cm LVOT Diameter 2.0 cm LV Ejection Fraction 2D Teich 62.8 % LV Ejection Fraction MOD 2C 70.9 % LV Ejection Fraction 2C AL 69.4 % LA Diameter 3.9 cm LA Width 4.1 cm LA Height 4.7 cm RA Width 3.5 cm RA Height 4.2 cm Aorta at Sinotubular Diameter 2.1 cm M-MODE LV Diastolic Diameter MM 5.8 cm 4.2 - 5.9 / 3.9 - 5.3 cm LV Systolic Diameter MM 3.7 cm LV Ejection Fraction MM Teich 65.6 % IVS Diastolic Thickness MM 2.1 cm 0.6 - 1.0 / 0.6 - 0.9 cm IVS Systolic Thickness MM 2.9 cm LVPW Diastolic Thickness MM 1.5 cm 0.6 - 1.0 / 0.6 - 0.9 cm LVPW Systolic Thickness MM 1.9 cm Aortic Annulus Diameter 2.9 cm LA Ao Ratio MM 1.5 MV E Point Septal Separation 0.3 cm DOPPLER AV Peak Velocity 201.0 cm/s LVOT Peak Velocity 106.0 cm/s AV Area Cont Eq vti 2.1 cm squared AV Area Cont Eq pk 1.7 cm squared MV Area PHT 3.4 cm squared Mitral E to A Ratio 1.1 MV E' Velocity 53.5 cm/s Mitral E to MV E' Ratio 10.1 Mitral E to LV E' Lateral Ratio 10.1 Mitral E to LV E' Septal Ratio 10.1 TR Peak Velocity 200.3 cm/s TR Peak Gradient 16.1 mmHg TR Mean Velocity 150.3 cm/s TR Mean Gradient 10.1 mmHg TR Velocity Time Integral 53.1 cm TV Peak E Velocity 71.0 cm/s Right Atrial Pressure 3.0 mmHg Pulmonary Artery Systolic Pressu 19.1 mmHg PV Peak Velocity 97.0 cm/s RV Acceleration Time 0.1 s RV Ejection Time 0.3 s RV AcT/ET 0.3 FINDINGS Left Ventricle Normal left ventricular size and systolic function. Although no diagnostic regional wall motion abnormalities could be identified, this possibility cannot be completely excluded based on the study. Left ventricular ejection fraction is estimated at 70 %. Normal diastolic function. Right Ventricle Normal right ventricular size and systolic function. Right ventricular systolic pressure 19.1 mmHg. Right Atrium Right atrium not well visualized. Left Atrium Normal left atrial size. Mitral Valve Mildly thickened mitral valve. No mitral valve stenosis. Trace mitral valve regurgitation. Aortic Valve Structurally normal trileaflet aortic valve. No aortic valve stenosis. No aortic valve regurgitation. Tricuspid Valve Tricuspid valve not well visualized. Pulmonic Valve Pulmonic valve not well visualized. No pulmonary valve stenosis. No pulmonary valve regurgitation. Pericardium No pericardial effusion. Echo free space anterior to the right ventricle likely represents a fat pad. Aorta Normal size aortic root and proximal ascending aorta. CONCLUSIONS 1. Normal left ventricular size and systolic function. Left ventricular ejection fraction is estimated at 70 %. Although no diagnostic regional wall motion abnormalities could be identified, this possibility cannot be completely excluded based on the study.Normal diastolic function. 2. Normal pulmonary artery pressure. 3. No significant valvular abnormality. 4. When compared to previous echocardiogram dated 02/26/2017, there may not have been any significant change. Monik Joyce MD (Electronically Signed) Final Date: 06 March 2020 17:28 S
[2020-03-06] MEDS: cefTRIAXone 1,000 MG in sodium chloride 0.9% (plus) 50 ML 100 MG IV (03:42)
[2020-03-06] MEDS: atorvastatin 40 mg Tablet 80 MG PO ×2 (03:43→21:24)
[2020-03-06] MEDS: carvedilol 25 mg Tablet PO ×3 (03:43→17:51)
[2020-03-06] MEDS: duloxetine 60 mg Capsule PO ×3 (03:43→17:51)
[2020-03-06] MEDS: enoxaparin 40 mg/0.4 mL Syringe SUBCUT (03:44)
[2020-03-06] MEDS: pantoprazole DR 40 mg Tablet PO ×3 (03:44→17:51)
[2020-03-06] MEDS: sodium chloride 0.9% 1,000 ML 75 ML IV (03:45)
[2020-03-06] MEDS: albuterol 8 gm MDI 1 PUFF INHALATION ×5 (04:20→21:00)
[2020-03-06 04:38] LABS: ABG PCO2 48.5 mmHg (35-45); ABG PH Result 7.38 (7.35-7.45); Arterial Blood Gas Hematocrit 31.9 % (37-47); Base Excess ABG 2.5 mmol/L (-2.0-2.0); Blood Gas Allen Test Pos; Blood Gas Sample Site Radial, left; Blood Gas Sample Type Arterial; HCO3 ABG 28.3 mmol/L (22-26); Oxygen Device NC; PO2 ABG 79.1 mmHg (80.0-100.0)
[2020-03-06] MEDS: azithromycin 500 MG in sodium chloride 0.9% 250 ML 250 MG IV (04:56)
--- NOTE | 2020-03-06 07:00 | XR_ITS ---
WS: [id number] PORTABLE CHEST HISTORY: sob COMPARISON: 03/05/2020 Lungs are clear and well expanded. No pleural effusion or pneumothorax. Cardiac size: Mildly enlarged cardiac silhouette. Mediastinum/Aorta: Mild atherosclerosis aorta. No osseous abnormality seen. XR/XR chest 1V portable [id number] IMPRESSION: Mild cardiomegaly. No pneumonia.
[2020-03-06] MEDS: dexamethasone 4 mg/mL INJ 6 MG IVP (08:00)
[2020-03-06] MEDS: ondansetron 2 mg/ML SDV 2 mL 4 MG IVP (08:05)
[2020-03-06 09:24] LABS: NT Pro B Type Natriuretic Pept 381 pg/mL (0-125); Procalcitonin 0.08 ng/mL (0-0.5); Thyroid Stimulating Hormone 1.14 uIU/mL (0.27-4.20)
[2020-03-06 09:35] LABS: Alanine Aminotransferase 20 U/L (0-33); Albumin Level 3.3 g/dL (3.5-5.2); Alkaline Phosphatase 80 IU/L (35-105); Aspartate Amino Transferase 31 U/L (0-32); Blood Urea Nitrogen 18 mg/dL (8-23); Calcium 8.7 mg/dL (8.5-10.5); Carbon Dioxide 26 mmol/L (22-29); Chloride 106 mmol/L (98-107); Chol HDL Ratio 2.31 mg/dL (0.0-4.40); Cholesterol 90 mg/dL (0-200); Creatine Phosphokinase 25 U/L (26-192); Glomerular Filtration Rate 56.6 mL/min (90-130); Glucose 96 mg/dL (65-115); HDL Cholesterol 39 mg/dL (60-100); LDL Cholesterol Calculated 34 mg/dL (50-129); LDL HDL Ratio 0.87 RATIO (0.00-3.22); Magnesium 2.3 mg/dL (1.7-2.3); Osmolality Calculated 296 mOsm/kg (285-295); Phosphorus 3.8 mg/dL (2.5-4.5); Sodium 142 mmol/L (136-145); Total Bilirubin 0.2 mg/dL (0.15-1.2); Total Protein 6.3 g/dL (6.6-8.7); Triglycerides 83 mg/dL (0-150)
[2020-03-06] MEDS: multivitamin therapeutic Tablet 1 TAB PO (09:35)
[2020-03-06] MEDS: ascorbic acid 500 mg Tablet 1000 MG PO ×2 (09:35→17:51)
[2020-03-06] MEDS: thiamine 100 mg Tablet PO (09:36)
[2020-03-06] MEDS: clopidogrel 75 mg Tablet PO (09:36)
[2020-03-06] MEDS: folic acid 1 mg Tablet PO (09:36)
[2020-03-06] MEDS: lisinopril 20 mg Tablet 40 MG PO (09:36)
[2020-03-06] MEDS: gabapentin 300 mg Capsule 600 MG PO ×2 (09:36→17:51)
[2020-03-06] MEDS: zinc gluconate 50 mg Tablet PO (09:36)
[2020-03-06] MEDS: cholecalciferol (vitamin D3) 5,000 unit Tablet 5000 UNIT PO (09:36)
[2020-03-06 09:38] LABS: Hematocrit 33.2 % (37.0-47.0); Hemoglobin 9.6 g/dL (11.5-15.3); Lymphocytes # 0.9 10^3/uL (0.8-4.8); Lymphocytes % 11.3 %; Mean Corpuscular HGB Conc 28.9 g/dL (30.0-36.0); Mean Corpuscular Hemoglobin 23.2 pg (28.0-34.0); Mean Corpuscular Volume 80.2 fL (81-99); Mean Platelet Volume 10.1 fL (7.4-10.4); Monocytes # 0.4 10^3/uL (0.2-0.9); Monocytes % 4.4 %; Neutrophils % 83.4 %; Nucleated Red Blood Cells % 0 %; Platelet Count 184 10^3/cmm (130-400); Red Blood Count 4.14 10^6/uL (4.1-5.3); Red Cell Distribution Width 18.8 % (12.1-15.1); White Blood Count 7.9 10^3/uL (4.0-10.0)
--- NOTE | 2020-03-06 09:40 | PC.RESP ---
Smoking Cessation and Pulmonary Rehab information sent to patient.
--- NOTE | 2020-03-06 12:23 | P.PN_ITS ---
Subjective Subjective: Interval history: Patient was examined this morning, she continues to complain of generalized weakness, shortness of breath with exertion, no nausea, no vomiting Vitals/I&O/Wt Last Vital Signs Temp 97.9 F 03/06/20 12:00 Pulse 65 03/06/20 12:00 Resp 18 03/06/20 12:00 BP 123/73 03/06/20 12:00 Pulse Ox 97 03/06/20 12:00 03/05/20 03/06/20 03/06/20 22:59 06:59 14:59 Intake Total 300 / 300 Output Total 200 / 200 Balance -200 / 400 300 / 300 Weight last 48 hrs Weight 117.934 kg Physical Exam Const: COMMON NORMALS: no acute distress and patient oriented x3 HENMT: COMMON NORMALS: normocephalic HEAD & SCALP: normocephalic Neck/C-Spine: COMMON NORMALS: no JVD Resp: COMMON NORMALS: normal respiratory effort, No retractions and No use of accessory muscles AUSCULTATION: diminished lung sounds Cardio: COMMON NORMALS: no JVD, regular rate, regular rhythm, S1 normal heart sound present and S2 normal heart sound present RATE: regular rate RHYTHM: regular rhythm HEART SOUNDS: S1 normal heart sound present and S2 normal heart sound present GI: COMMON NORMALS: Normal to inspection, nondistended, normoactive bowel sounds present, Soft to palpation, non-tender, No hepatosplenomegaly present, no masses and no bruits PALPATION: Yes Soft to palpation and Yes No he patosplenomegaly present Extremity: COMMON NORMALS: capillary refill normal, no clubbing, cyanosis or edema, no calf tenderness and no pedal edema Neuro: COMMON NORMALS: patient oriented x3 Psych: COMMON NORMALS: mental status grossly normal Data : 03/06/20 09:28 03/06/20 08:20 Micro: Microbiology 03/05/20 13:10 Blood Culture - Preliminary Blood SPECIMEN COLLECTED 03/05/20 13:15 Blood Culture - Preliminary Blood SPECIMEN COLLECTED A&P Assessment and plan (1) Acute respiratory failure with hypoxia: -Secondary COVID-19 pneumonia, viral pneumonitis, secondary bacterial infection, with COPD, obesity, possibly obesity hypoventilation Plan: -Admit to general medical floors -Use BiPAP during the night -Decadron, remdesivir -Start convalescent plasma today -Rocephin, azithromycin -Advair, Spiriva, albuterol -Vitamin C, zinc -Full code -Switch to full dose Lovenox -History of alcoholism, obtain blood alcohol level, CIWA score -Awaiting echocardiogram -We will monitor clinical status, patient is a high risk of intubation if she clinically worsens Plan for today switch to therapeutic Lovenox, start convalescent plasma monitor clinical status closely, stop fluids Status: Acute (2) Acute exacerbation of chronic obstructive pulmonary disease: Status: Acute (3) Pneumonia due to COVID-19 virus: Status: Acute (4) Vitamin D deficiency: Status: Acute (5) Morbid obesity: Status: Acute (6) Essential (primary) hypertension: Status: Chronic (7) Chronic obstructive pulmonary disease, unspecified: Status: Chronic (8) CAD (coronary artery disease): Status: Acute (9) Anxiety and depression: Status: Chronic (10) Alcohol abuse: Status: Acute Attestations Medical Necessity Statement*: Patient requires hospitalization for acute respiratory failure with hypoxia secondary to COVID-19 pneumonia, secondary bacterial infection, COPD, obesity hypoventilation Coding Level of Care Code 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
[2020-03-06] MEDS: gabapentin 300 mg Capsule PO (13:01)
[2020-03-06] MEDS: enoxaparin 120 mg/0.8 mL Syringe SUBCUT (14:38)
--- NOTE | 2020-03-06 17:11 | PC.NURSE ---
blood draw done and sent to lab.
[2020-03-06] MEDS: remdesivir 100 MG in sodium chloride 0.9% (100 ml) 100 ML IV (17:45)
[2020-03-06] MEDS: sucralfate 1 gm/10 mL Oral Liq UDC PO ×2 (17:50→21:24)
[2020-03-06] MEDS: hyDROXYzine 25 mg Capsule 50 MG PO (21:24)
[2020-03-06] MEDS: cyclobenzaprine 10 mg Tablet PO (21:24)
[2020-03-07] VITALS (22 sets, daily range): BP systolic 99–135; BP diastolic 56–80; PULSE 52–71; RESP 15–20; TEMP 36.4–36.8; O2SAT 93–99
[2020-03-07] MEDS: albuterol 8 gm MDI 1 PUFF INHALATION ×7 (00:25→23:14)
[2020-03-07] MEDS: enoxaparin 120 mg/0.8 mL Syringe SUBCUT ×2 (00:34→12:41)
[2020-03-07] MEDS: cefTRIAXone 1,000 MG in sodium chloride 0.9% (plus) 50 ML 100 MG IV (02:16)
[2020-03-07] MEDS: azithromycin 500 MG in sodium chloride 0.9% 250 ML 250 MG IV (04:08)
[2020-03-07 04:53] LABS: Basophils % 0.1 %; Hematocrit 31.8 % (37.0-47.0); Hemoglobin 9.5 g/dL (11.5-15.3); Lymphocytes # 1.3 10^3/uL (0.8-4.8); Lymphocytes % 14.4 %; Mean Corpuscular HGB Conc 29.9 g/dL (30.0-36.0); Mean Corpuscular Hemoglobin 24.4 pg (28.0-34.0); Mean Corpuscular Volume 81.5 fL (81-99); Mean Platelet Volume 10.6 fL (7.4-10.4); Monocytes # 0.7 10^3/uL (0.2-0.9); Monocytes % 7.5 %; Neutrophils # 7.17 10^3/uL (1.8-7.7); Neutrophils % 77.5 %; Nucleated Red Blood Cells % 0 %; Platelet Count 184 10^3/cmm (130-400); Red Cell Distribution Width 18.9 % (12.1-15.1); White Blood Count 9.3 10^3/uL (4.0-10.0)
[2020-03-07 05:15] LABS: ABG PCO2 49.4 mmHg (35-45); ABG PH Result 7.38 (7.35-7.45); Arterial Blood Gas Hematocrit 29.9 % (37-47); Base Excess ABG 3.6 mmol/L (-2.0-2.0); Blood Gas Allen Test Pos; Blood Gas Sample Type Arterial; HCO3 ABG 29.3 mmol/L (22-26); PO2 ABG 85.7 mmHg (80.0-100.0)
[2020-03-07 05:16] LABS: Blood Gas Operator Identificat HARKR; Blood Gas Sample Site Radial, right; Oxygen Device NC
[2020-03-07 05:18] LABS: Alanine Aminotransferase 17 U/L (0-33); Albumin Level 3.4 g/dL (3.5-5.2); Alkaline Phosphatase 75 IU/L (35-105); Anion Gap 10.9 (5-19); Aspartate Amino Transferase 18 U/L (0-32); Blood Urea Nitrogen 21 mg/dL (8-23); C Reactive Protein 2.5 mg/L (0.0-4.9); Calcium 8.7 mg/dL (8.5-10.5); Carbon Dioxide 30 mmol/L (22-29); Chloride 106 mmol/L (98-107); Globulin 2.5 g/dL (1.3-4.6); Glomerular Filtration Rate 56.6 mL/min (90-130); Glucose 103 mg/dL (65-115); Magnesium 2.4 mg/dL (1.7-2.3); Osmolality Calculated 299 mOsm/kg (285-295); Phosphorus 3.2 mg/dL (2.5-4.5); Potassium 3.9 mmol/L (3.5-5.1); Sodium 143 mmol/L (136-145); Total Bilirubin 0.2 mg/dL (0.15-1.2); Total Protein 5.9 g/dL (6.6-8.7)
[2020-03-07 05:30] LABS: NT Pro B Type Natriuretic Pept 571 pg/mL (0-125); Procalcitonin 0.07 ng/mL (0-0.5)
[2020-03-07 05:45] LABS: Creatine Phosphokinase 23 U/L (26-192)
[2020-03-07] MEDS: sucralfate 1 gm/10 mL Oral Liq UDC PO ×3 (06:08→21:04)
[2020-03-07] MEDS: zinc gluconate 50 mg Tablet PO (08:21)
[2020-03-07] MEDS: multivitamin therapeutic Tablet 1 TAB PO (08:21)
[2020-03-07] MEDS: gabapentin 300 mg Capsule 600 MG PO ×2 (08:21→17:54)
[2020-03-07] MEDS: carvedilol 25 mg Tablet PO ×2 (08:21→17:51)
[2020-03-07] MEDS: pantoprazole DR 40 mg Tablet PO ×2 (08:21→17:51)
[2020-03-07] MEDS: thiamine 100 mg Tablet PO (08:21)
[2020-03-07] MEDS: ascorbic acid 500 mg Tablet 1000 MG PO ×2 (08:21→17:51)
[2020-03-07] MEDS: lisinopril 20 mg Tablet 40 MG PO (08:21)
[2020-03-07] MEDS: folic acid 1 mg Tablet PO (08:21)
[2020-03-07] MEDS: clopidogrel 75 mg Tablet PO (08:21)
[2020-03-07] MEDS: duloxetine 60 mg Capsule PO ×2 (08:21→17:51)
[2020-03-07] MEDS: dexamethasone 4 mg/mL INJ 6 MG IVP (08:22)
[2020-03-07] MEDS: cholecalciferol (vitamin D3) 5,000 unit Tablet 5000 UNIT PO (08:22)
[2020-03-07] MEDS: gabapentin 300 mg Capsule PO (12:24)
--- NOTE | 2020-03-07 12:30 | P.PN_ITS ---
Subjective Subjective: Interval history: Patient was examined this morning, she tells me that she has not had any fevers, her appetite is improving a bit, but continues to have generalized weakness, and shortness of breath, she is still on 4 L, Vitals/I&O/Wt Last Vital Signs Temp 97.7 F 03/07/20 11:48 Pulse 68 03/07/20 11:50 Resp 18 03/07/20 11:50 BP 135/65 03/07/20 11:48 Pulse Ox 94 03/07/20 11:50 03/06/20 03/07/20 03/07/20 22:59 06:59 14:59 Intake Total 850 / 1390 206 / 1596 250 / 250 Output Total 750 / 750 300 / 300 Balance 100 / 640 206 / 846 -50 / -50 Physical Exam Const: COMMON NORMALS: no acute distress and patient oriented x3 HENMT: COMMON NORMALS: normocephalic HEAD & SCALP: normocephalic Neck/C-Spine: COMMON NORMALS: no JVD Resp: COMMON NORMALS: normal respiratory effort, No retractions and No use of accessory muscles AUSCULTATION: diminished lung sounds bilateral Cardio: COMMON NORMALS: no JVD, regular rate, regular rhythm, S1 normal heart sound present and S2 normal heart sound present RATE: regular rate RHYTHM: regular rhythm HEART SOUNDS: S1 normal heart sound present and S2 normal heart sound present GI: COMMON NORMALS: Normal to inspection, nondistended, normoactive bowel sounds present, Soft to palpation, non-tender, No hepatosplenomegaly present, no masses and no bruits PALPATION: Yes Soft to palpation and Yes No hepatospl enomegaly present Extremity: COMMON NORMALS: capillary refill normal, no clubbing, cyanosis or edema, no calf tenderness and no pedal edema Neuro: COMMON NORMALS: patient oriented x3 Psych: COMMON NORMALS: mental status grossly normal Data : 03/07/20 04:30 03/07/20 04:30 Micro: Microbiology 03/05/20 13:10 Blood Culture - Preliminary Blood NEGATIVE TO DATE 03/05/20 13:15 Blood Culture - Preliminary Blood NEGATIVE TO DATE A&P Assessment and plan (1) Acute respiratory failure with hypoxia: -Secondary COVID-19 pneumonia, viral pneumonitis, secondary bacterial infection, with COPD, obesity, possibly obesity hypoventilation Plan: -Admit to general medical floors -Use BiPAP during the night -Decadron, remdesivir -Convalescent plasma -Rocephin, azithromycin -Advair, Spiriva, albuterol -Vitamin C, zinc -Full code -On full dose Lovenox -History of alcoholism, obtain blood alcohol level, CIWA score -Echocardiogram shows EF of 70%, no regional wall motion abnormalities -We will monitor clinical status, patient is a high risk of intubation if she clinically worsens Plan for today continue aggressive pulmonary toilet, remdesivir, Decadron, convalescent plasma, antibiotics Status: Acute (2) Acute exacerbation of chronic obstructive pulmonary disease: Status: Acute (3) Pneumonia due to COVID-19 virus: Status: Acute (4) Vitamin D deficiency: Status: Acute (5) Morbid obesity: Status: Acute (6) Essential (primary) hypertension: Status: Chronic (7) Chronic obstructive pulmonary disease, unspecified: Status: Chronic (8) CAD (coronary artery disease): Status: Acute (9) Anxiety and depression: Status: Chronic (10) Alcohol abuse: Status: Acute Attestations Medical Necessity Statement*: Patient requires hospitalization for acute respiratory failure with hypoxia secondary COVID-19 pneumonia, viral pneumonitis, secondary bacterial infection, COPD Coding Level of Care Code 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
[2020-03-07 13:27] LABS: Coronavirus Test Green County DETECTED
[2020-03-07] MEDS: remdesivir 100 MG in sodium chloride 0.9% (100 ml) 100 ML IV (17:10)
[2020-03-07] MEDS: atorvastatin 40 mg Tablet 80 MG PO (21:03)
[2020-03-07] MEDS: hyDROXYzine 25 mg Capsule 50 MG PO (21:10)
[2020-03-08] VITALS (16 sets, daily range): BP systolic 105–137; BP diastolic 67–84; PULSE 45–87; RESP 16–20; TEMP 35.6–37.2; O2SAT 94–100
[2020-03-08] MEDS: cefTRIAXone 1,000 MG in sodium chloride 0.9% (plus) 50 ML 100 MG IV (01:21)
[2020-03-08] MEDS: enoxaparin 120 mg/0.8 mL Syringe SUBCUT (01:21)
[2020-03-08] MEDS: albuterol 8 gm MDI 1 PUFF INHALATION ×5 (03:39→20:32)
[2020-03-08] MEDS: azithromycin 500 MG in sodium chloride 0.9% 250 ML 250 MG IV (04:20)
[2020-03-08] MEDS: sucralfate 1 gm/10 mL Oral Liq UDC PO ×4 (06:19→21:13)
[2020-03-08 06:40] LABS: Basophils % 0.1 %; Hematocrit 31.8 % (37.0-47.0); Lymphocytes # 1.6 10^3/uL (0.8-4.8); Lymphocytes % 17.2 %; Mean Corpuscular HGB Conc 28.3 g/dL (30.0-36.0); Mean Corpuscular Hemoglobin 23.2 pg (28.0-34.0); Mean Platelet Volume 11.7 fL (7.4-10.4); Monocytes # 0.6 10^3/uL (0.2-0.9); Monocytes % 6.6 %; Neutrophils # 7.18 10^3/uL (1.8-7.7); Neutrophils % 75.7 %; Nucleated Red Blood Cells % 0 %; Platelet Count 182 10^3/cmm (130-400); Red Blood Count 3.88 10^6/uL (4.1-5.3); Red Cell Distribution Width 19.2 % (12.1-15.1); White Blood Count 9.5 10^3/uL (4.0-10.0)
[2020-03-08 07:02] LABS: ABG PCO2 49.3 mmHg (35-45); ABG PH Result 7.39 (7.35-7.45); Arterial Blood Gas Hematocrit 30.1 % (37-47); Base Excess ABG 3.8 mmol/L (-2.0-2.0); Blood Gas Allen Test Pos; Blood Gas Sample Site Radial, right; Blood Gas Sample Type Arterial; HCO3 ABG 29.6 mmol/L (22-26); Oxygen Device NC
[2020-03-08] MEDS: dexamethasone 4 mg/mL INJ 6 MG IVP (07:51)
[2020-03-08] MEDS: ascorbic acid 500 mg Tablet 1000 MG PO ×2 (08:19→17:55)
[2020-03-08] MEDS: duloxetine 60 mg Capsule PO ×2 (08:20→17:55)
[2020-03-08] MEDS: folic acid 1 mg Tablet PO (08:20)
[2020-03-08] MEDS: gabapentin 300 mg Capsule 600 MG PO ×2 (08:20→17:55)
[2020-03-08] MEDS: cholecalciferol (vitamin D3) 5,000 unit Tablet 5000 UNIT PO (08:20)
[2020-03-08] MEDS: carvedilol 25 mg Tablet PO ×2 (08:20→17:55)
[2020-03-08] MEDS: clopidogrel 75 mg Tablet PO (08:20)
[2020-03-08] MEDS: lisinopril 20 mg Tablet 40 MG PO (08:21)
[2020-03-08] MEDS: thiamine 100 mg Tablet PO (08:21)
[2020-03-08] MEDS: multivitamin therapeutic Tablet 1 TAB PO (08:22)
[2020-03-08] MEDS: zinc gluconate 50 mg Tablet PO (08:23)
[2020-03-08] MEDS: pantoprazole DR 40 mg Tablet PO ×2 (08:38→17:55)
[2020-03-08 08:50] LABS: NT Pro B Type Natriuretic Pept 799 pg/mL (0-125); Procalcitonin 0.04 ng/mL (0-0.5)
[2020-03-08 09:01] LABS: Alanine Aminotransferase 14 U/L (0-33); Albumin Level 3.3 g/dL (3.5-5.2); Alkaline Phosphatase 69 IU/L (35-105); Aspartate Amino Transferase 19 U/L (0-32); Blood Urea Nitrogen 21 mg/dL (8-23); C Reactive Protein 1.2 mg/L (0.0-4.9); Calcium 8.9 mg/dL (8.5-10.5); Carbon Dioxide 30 mmol/L (22-29); Chloride 106 mmol/L (98-107); Creatine Phosphokinase 20 U/L (26-192); Globulin 2.8 g/dL (1.3-4.6); Glomerular Filtration Rate 56.6 mL/min (90-130); Glucose 83 mg/dL (65-115); Magnesium 2.4 mg/dL (1.7-2.3); Osmolality Calculated 296 mOsm/kg (285-295); Phosphorus 2.6 mg/dL (2.5-4.5); Sodium 142 mmol/L (136-145); Total Bilirubin 0.2 mg/dL (0.15-1.2); Total Protein 6.1 g/dL (6.6-8.7)
[2020-03-08] MEDS: gabapentin 300 mg Capsule PO (11:54)
--- NOTE | 2020-03-08 14:13 | P.PN_ITS ---
Subjective Subjective: Interval history: Patient was examined this morning, tells me that she still feels a bit short with exertion, feels weak and fatigued, appetite is improving, denies any bloody or black stools, denies any dizziness Vitals/I&O/Wt Last Vital Signs Temp 96.1 F L 03/08/20 11:43 Pulse 52 L 03/08/20 12:18 Resp 16 03/08/20 12:18 BP 115/75 03/08/20 11:43 Pulse Ox 98 03/08/20 12:18 03/07/20 03/08/20 03/08/20 22:59 06:59 14:59 Intake Total 340 / 830 1260 / 2090 120 / 120 Output Total 500 / 800 1200 / 2000 Balance -160 / 30 60 / 90 120 / 120 Physical Exam Const: COMMON NORMALS: no acute distress and patient oriented x3 HENMT: COMMON NORMALS: normocephalic HEAD & SCALP: normocephalic Neck/C-Spine: COMMON NORMALS: no JVD Resp: COMMON NORMALS: normal respiratory effort, No retractions, No use of accessory muscles and clear to auscultation bilaterally AUSCULTATION: clear to auscultation bilaterally Cardio: COMMON NORMALS: no JVD, regular rate, regular rhythm, S1 normal heart sound present and S2 normal heart sound present RATE: regular rate RHYTHM: regular rhythm HEART SOUNDS: S1 normal heart sound present and S2 normal heart sound present GI: COMMON NORMALS: Normal to inspection, nondistended, normoactive bowel sounds present, Soft to palpation, non-tender, No hepatosplenomegaly present, no masses and no bruits PALPATION: Yes Soft to palpation and Yes No hepatosplenomegaly present Extremity: COMMON NORMALS: capillary refill normal, no clubbing, cyanosis or edema, no calf tenderness and no pedal edema Neuro: COMMON NORMALS: patient oriented x3 Psych: COMMON NORMALS: mental status grossly normal Data : 03/08/20 04:12 03/08/20 07:57 A&P Assessment and plan (1) Acute respiratory failure with hypoxia: -Secondary COVID-19 pneumonia, viral pneumonitis, secondary bacterial infection, with COPD, obesity, possibly obesity hypoventilation Plan: -Admit to general medical floors -Use BiPAP during the night -Decadron, remdesivir -Convalescent plasma -Rocephin, azithromycin -Advair, Spiriva, albuterol -Vitamin C, zinc -Full code -Full dose of Lovenox on hold given hemoglobin of 9.0, recheck hemoglobin in the afternoon, Hemoccult stools, transfuse if hemoglobin less than 7 -History of alcoholism, obtain blood alcohol level, CIWA score -Echocardiogram shows EF of 70%, no regional wall motion abnormalities -We will monitor clinical status, patient is a high risk of intubation if she clinically worsens Plan for today continue aggressive pulmonary toilet, remdesivir, Decadron, conv alescent plasma, antibiotics, monitor hemoglobin, transfuse as needed Status: Acute (2) Acute exacerbation of chronic obstructive pulmonary disease: Status: Acute (3) Pneumonia due to COVID-19 virus: Status: Acute (4) Vitamin D deficiency: Status: Acute (5) Morbid obesity: Status: Acute (6) Essential (primary) hypertension: Status: Chronic (7) Chronic obstructive pulmonary disease, unspecified: Status: Chronic (8) CAD (coronary artery disease): Status: Acute (9) Anxiety and depression: Status: Chronic (10) Alcohol abuse: Status: Acute (11) Anemia: Status: Acute Attestations Medical Necessity Statement*: Hospitalization for acute respiratory failure secondary to COVID-19, acute anemia Coding Level of Care Code 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
[2020-03-08 16:21] LABS: Basophils % 0.1 %; Hematocrit 32.4 % (37.0-47.0); Hemoglobin 9.3 g/dL (11.5-15.3); Lymphocytes % 9.3 %; Mean Corpuscular HGB Conc 28.7 g/dL (30.0-36.0); Mean Corpuscular Hemoglobin 23.5 pg (28.0-34.0); Mean Corpuscular Volume 81.8 fL (81-99); Mean Platelet Volume 10.9 fL (7.4-10.4); Monocytes # 0.5 10^3/uL (0.2-0.9); Monocytes % 4.6 %; Neutrophils # 8.91 10^3/uL (1.8-7.7); Neutrophils % 85.7 %; Nucleated Red Blood Cells % 0 %; Platelet Count 174 10^3/cmm (130-400); Red Blood Count 3.96 10^6/uL (4.1-5.3); Red Cell Distribution Width 18.9 % (12.1-15.1); White Blood Count 10.4 10^3/uL (4.0-10.0)
[2020-03-08] MEDS: remdesivir 100 MG in sodium chloride 0.9% (100 ml) 100 ML IV (17:55)
[2020-03-08] MEDS: atorvastatin 40 mg Tablet 80 MG PO (21:13)
[2020-03-08] MEDS: nicotine 21 mg Patch 1 PATCH TRANSDERMA (21:14)
[2020-03-08] MEDS: cyclobenzaprine 10 mg Tablet PO (22:55)
[2020-03-09] VITALS (17 sets, daily range): BP systolic 112–143; BP diastolic 70–85; PULSE 53–81; RESP 15–20; TEMP 35.9–36.8; O2SAT 96–100
[2020-03-09] MEDS: albuterol 8 gm MDI 1 PUFF INHALATION ×5 (00:01→16:27)
[2020-03-09] MEDS: cefTRIAXone 1,000 MG in sodium chloride 0.9% (plus) 50 ML 100 MG IV (02:04)
[2020-03-09] MEDS: azithromycin 500 MG in sodium chloride 0.9% 250 ML 250 MG IV (03:49)
[2020-03-09 04:54] LABS: Procalcitonin 0.04 ng/mL (0-0.5)
[2020-03-09 05:05] LABS: Alanine Aminotransferase 15 U/L (0-33); Albumin Level 2.9 g/dL (3.5-5.2); Alkaline Phosphatase 62 IU/L (35-105); Anion Gap 9.6 (5-19); Aspartate Amino Transferase 20 U/L (0-32); Blood Urea Nitrogen 18 mg/dL (8-23); C Reactive Protein 1.2 mg/L (0.0-4.9); Calcium 8.1 mg/dL (8.5-10.5); Carbon Dioxide 27 mmol/L (22-29); Chloride 109 mmol/L (98-107); Globulin 2.5 g/dL (1.3-4.6); Glomerular Filtration Rate 73.2 mL/min (90-130); Glucose 81 mg/dL (65-115); Magnesium 2.1 mg/dL (1.7-2.3); Osmolality Calculated 295 mOsm/kg (285-295); Phosphorus 2.5 mg/dL (2.5-4.5); Potassium 3.6 mmol/L (3.5-5.1); Sodium 142 mmol/L (136-145); Total Bilirubin 0.2 mg/dL (0.15-1.2); Total Protein 5.4 g/dL (6.6-8.7)
--- NOTE | 2020-03-09 07:00 | XRR_ITS ---
PROCEDURE INFORMATION: Exam: XR Chest, 1 View Exam date and time: 03/08/2020 11:59 PM Age: 59 years old Clinical indication: Shortness of breath; Additional info: SOB TECHNIQUE: Imaging protocol: XR of the chest Views: 1 view. COMPARISON: CR XR chest 1V portable [id number] 03/06/2020 6:46 AM FINDINGS: Lungs: Diminutive inspiratory volume. Pleural space: Unremarkable. No pleural effusion. No pneumothorax. Heart/Mediastinum: Cardiomegaly. Bones/joints: Osteopenia. Degenerative change of the spine. XR/XR chest 1V portable [id number] IMPRESSION: 1. No acute cardiopulmonary process.
[2020-03-09 07:12] LABS: Basophils % 0.1 %; Hematocrit 30.1 % (37.0-47.0); Hemoglobin 8.6 g/dL (11.5-15.3); Lymphocytes # 1.6 10^3/uL (0.8-4.8); Lymphocytes % 16.9 %; Mean Corpuscular HGB Conc 28.6 g/dL (30.0-36.0); Mean Corpuscular Hemoglobin 23.4 pg (28.0-34.0); Mean Platelet Volume 11.3 fL (7.4-10.4); Monocytes # 0.8 10^3/uL (0.2-0.9); Monocytes % 8.7 %; Neutrophils # 6.89 10^3/uL (1.8-7.7); Neutrophils % 73.9 %; Nucleated Red Blood Cells % 0 %; Platelet Count 172 10^3/cmm (130-400); Red Blood Count 3.67 10^6/uL (4.1-5.3); Red Cell Distribution Width 18.9 % (12.1-15.1); White Blood Count 9.3 10^3/uL (4.0-10.0)
[2020-03-09] MEDS: dexamethasone 4 mg/mL INJ 6 MG IVP (09:39)
[2020-03-09] MEDS: thiamine 100 mg Tablet PO (09:40)
[2020-03-09] MEDS: lisinopril 20 mg Tablet 40 MG PO (09:40)
[2020-03-09] MEDS: clopidogrel 75 mg Tablet PO (09:40)
[2020-03-09] MEDS: sucralfate 1 gm/10 mL Oral Liq UDC PO ×4 (09:40→21:10)
[2020-03-09] MEDS: cholecalciferol (vitamin D3) 5,000 unit Tablet 5000 UNIT PO (09:40)
[2020-03-09] MEDS: multivitamin therapeutic Tablet 1 TAB PO (09:41)
[2020-03-09] MEDS: folic acid 1 mg Tablet PO (09:41)
[2020-03-09] MEDS: pantoprazole DR 40 mg Tablet PO ×2 (09:41→17:44)
[2020-03-09] MEDS: gabapentin 300 mg Capsule 600 MG PO ×2 (09:41→17:37)
[2020-03-09] MEDS: carvedilol 25 mg Tablet PO ×2 (09:41→17:37)
[2020-03-09] MEDS: ascorbic acid 500 mg Tablet 1000 MG PO ×2 (09:41→17:37)
[2020-03-09] MEDS: zinc gluconate 50 mg Tablet PO (09:41)
[2020-03-09] MEDS: FUROsemide 10 mg/mL SDV 2mL 20 MG IVP (09:52)
[2020-03-09] MEDS: nicotine 21 mg Patch 1 PATCH TRANSDERMA (09:52)
[2020-03-09] MEDS: duloxetine 60 mg Capsule PO ×2 (09:52→17:44)
[2020-03-09] MEDS: guaiFENesin 600 mg Tablet PO ×2 (13:01→17:37)
[2020-03-09] MEDS: gabapentin 300 mg Capsule PO (13:02)
--- NOTE | 2020-03-09 15:39 | PM.PN ---
Vitals/I&O/Wt Last Vital Signs Temp 99.6 F 03/09/20 15:26 Pulse 79 03/09/20 15:26 Resp 16 03/09/20 15:26 BP 131/88 03/09/20 15:26 Pulse Ox 94 03/09/20 15:26 03/09/20 03/09/20 03/09/20 06:59 14:59 22:59 Intake Total 480 / 480 Output Total 400 / 400 Balance -400 / -160 480 / 480 Physical Exam Const: COMMON NORMALS: no acute distress and patient oriented x3 HENMT: COMMON NORMALS: normocephalic HEAD & SCALP: normocephalic Neck/C-Spine: COMMON NORMALS: no JVD Resp: COMMON NORMALS: normal respiratory effort, No retractions, No use of accessory muscles and clear to auscultation bilaterally AUSCULTATION: clear to auscultation bilaterally Cardio: COMMON NORMALS: no JVD, regular rate, regular rhythm, S1 normal heart sound present and S2 normal heart sound present RATE: regular rate RHYTHM: regular rhythm HEART SOUNDS: S1 normal heart sound present and S2 normal heart sound present GI: COMMON NORMALS: Normal to inspection, nondistended, normoactive bowel sounds present, Soft to palpation, non-tender, No hepatosplenomegaly present, no masses and no bruits PALPATION: Yes Soft to palpation and Yes No hepatosplenomegaly present Extremity: COMMON NORMALS: capillary refill normal, no clubbing, cyanosis or edema, no calf tenderness and no pedal edema Neuro: COMMON NORMALS: patient oriented x3 Psych: COMMON NORMALS: mental status grossly normal Data : 03/09/20 03:50 03/09/20 03:50 Micro: Microbiology 03/09/20 09:24 Occult Blood (FIT) - Final Stool Routine Collection A&P Assessment and plan (1) Acute respiratory failure with hypoxia: -Secondary COVID-19 pneumonia, viral pneumonitis, secondary bacterial infection, with COPD, obesity, possibly obesity hypoventilation Plan: -Admit to general medical floors -Use BiPAP during the night -Decadron, remdesivir -Convalescent plasma -Rocephin, azithromycin -Advair, Spiriva, albuterol -Vitamin C, zinc -Full code -Full dose of Lovenox on hold given hemoglobin of 8.6, no blood or black stools, will order 1 unit PRBC -History of alcoholism, obtain blood alcohol level, CIWA score -Echocardiogram shows EF of 70%, no regional wall motion abnormalities -We will monitor clinical status, patient is a high risk of intubation if she clinically worsens Plan for today continue aggressive pulmonary toilet, remdesivir, Decadron, antibiotics, monitor hemoglobin, will get 1 unit PRBC Status: Acute (2) Acute exacerbation of chronic obstructive pulmonary disease: Status: Acute (3) Pneumonia due to COVID-19 virus: Status: Acute (4) Vitamin D deficiency: Status: Acute (5) Morbid obesity: Status: Acute (6) Essential (primary) hypertension: Status: Chronic (7) Chronic obstructive pulmonary disease, unspecified: Status: Chronic (8) CAD (coronary artery disease): Status: Acute (9) Anxiety and depression: Status: Chronic (10) Alcohol abuse: Status: Acute (11) Anemia: Status: Acute Attestations Medical Necessity Statement*: Patient requires hospitalization, for acute respiratory failure secondary COVID-19 Coding Level of Care Code 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
--- NOTE | 2020-03-09 15:55 | PC.NURSE ---
Vitals on the wrong patient.
[2020-03-09] MEDS: sodium chloride 0.9% (100 ml) 100 ML 10 ML (17:40)
[2020-03-09] MEDS: remdesivir 100 MG in sodium chloride 0.9% (100 ml) 100 ML IV (17:48)
[2020-03-09] MEDS: atorvastatin 40 mg Tablet 80 MG PO (21:10)
[2020-03-09] MEDS: CLONazepam 0.5 mg Tablet 0.25 MG PO (23:14)
[2020-03-10] VITALS (10 sets, daily range): BP systolic 93–160; BP diastolic 60–93; PULSE 52–62; RESP 16–20; TEMP 35.9–36.8; O2SAT 88–98
[2020-03-10] MEDS: cefTRIAXone 1,000 MG in sodium chloride 0.9% (plus) 50 ML 100 MG IV (02:02)
[2020-03-10] MEDS: azithromycin 500 MG in sodium chloride 0.9% 250 ML 250 MG IV (04:03)
[2020-03-10 04:14] LABS: Basophils % 0.1 %; Eosinophils % 0.1 %; Hematocrit 35.6 % (37.0-47.0); Hemoglobin 10.7 g/dL (11.5-15.3); Lymphocytes # 1.7 10^3/uL (0.8-4.8); Lymphocytes % 15.9 %; Mean Corpuscular HGB Conc 30.1 g/dL (30.0-36.0); Mean Corpuscular Hemoglobin 24.1 pg (28.0-34.0); Mean Corpuscular Volume 80.2 fL (81-99); Mean Platelet Volume 10.7 fL (7.4-10.4); Monocytes % 9.7 %; Neutrophils # 7.71 10^3/uL (1.8-7.7); Neutrophils % 73.8 %; Nucleated Red Blood Cells % 0 %; Platelet Count 170 10^3/cmm (130-400); Red Blood Count 4.44 10^6/uL (4.1-5.3); Red Cell Distribution Width 18.6 % (12.1-15.1); White Blood Count 10.4 10^3/uL (4.0-10.0)
[2020-03-10 04:43] LABS: NT Pro B Type Natriuretic Pept 759 pg/mL (0-125); Procalcitonin 0.06 ng/mL (0-0.5)
[2020-03-10 04:55] LABS: Alanine Aminotransferase 21 U/L (0-33); Albumin Level 3.2 g/dL (3.5-5.2); Alkaline Phosphatase 74 IU/L (35-105); Aspartate Amino Transferase 26 U/L (0-32); Blood Urea Nitrogen 22 mg/dL (8-23); C Reactive Protein 4.2 mg/L (0.0-4.9); Calcium 8.8 mg/dL (8.5-10.5); Carbon Dioxide 28 mmol/L (22-29); Chloride 105 mmol/L (98-107); Globulin 2.8 g/dL (1.3-4.6); Glomerular Filtration Rate 63.9 mL/min (90-130); Glucose 82 mg/dL (65-115); Magnesium 2.1 mg/dL (1.7-2.3); Osmolality Calculated 296 mOsm/kg (285-295); Phosphorus 3.4 mg/dL (2.5-4.5); Sodium 142 mmol/L (136-145); Total Bilirubin 0.3 mg/dL (0.15-1.2)
[2020-03-10 05:07] LABS: Anion Gap 12.6 (5-19); Potassium 3.6 mmol/L (3.5-5.1)
[2020-03-10] MEDS: sucralfate 1 gm/10 mL Oral Liq UDC PO ×2 (06:15→12:46)
--- NOTE | 2020-03-10 07:00 | XRR_ITS ---
PROCEDURE INFORMATION: Exam: XR Chest, 1 View Exam date and time: 03/10/2020 12:00 AM Age: 59 years old Clinical indication: Shortness of breath; Additional info: SOB TECHNIQUE: Imaging protocol: XR of the chest Views: Frontal portable upright view of the chest. COMPARISON: CR (CHEST, ) 03/09/2020 7:47 AM FINDINGS: Lungs: Mild left basilar pulmonary subsegmental atelectasis. The lungs are otherwise clear bilaterally. The pulmonary vasculature is normal. Pleural space: No pleural effusion. No pneumothorax. Heart/Mediastinum: The heart is normal in size and contour. Mediastinum: Stable. Bones/joints: Stable. XR/XR chest 1V portable [id number] IMPRESSION: Mild left basilar pulmonary subsegmental atelectasis.
[2020-03-10] MEDS: albuterol 8 gm MDI 1 PUFF INHALATION (08:22)
[2020-03-10] MEDS: dexamethasone 4 mg/mL INJ 6 MG IVP (09:16)
[2020-03-10] MEDS: zinc gluconate 50 mg Tablet PO (09:17)
[2020-03-10] MEDS: multivitamin therapeutic Tablet 1 TAB PO (09:17)
[2020-03-10] MEDS: thiamine 100 mg Tablet PO (09:17)
[2020-03-10] MEDS: lisinopril 20 mg Tablet 40 MG PO (09:17)
[2020-03-10] MEDS: ascorbic acid 500 mg Tablet 1000 MG PO (09:17)
[2020-03-10] MEDS: cholecalciferol (vitamin D3) 5,000 unit Tablet 5000 UNIT PO (09:18)
[2020-03-10] MEDS: guaiFENesin 600 mg Tablet PO (09:18)
[2020-03-10] MEDS: FUROsemide 10 mg/mL SDV 4mL 40 MG IVP (09:18)
[2020-03-10] MEDS: folic acid 1 mg Tablet PO (09:18)
[2020-03-10] MEDS: clopidogrel 75 mg Tablet PO (09:18)
[2020-03-10] MEDS: nicotine 21 mg Patch 1 PATCH TRANSDERMA (09:19)
[2020-03-10] MEDS: gabapentin 300 mg Capsule 600 MG PO (09:28)
[2020-03-10] MEDS: carvedilol 25 mg Tablet PO (09:28)
[2020-03-10] MEDS: duloxetine 60 mg Capsule PO (09:28)
[2020-03-10] MEDS: pantoprazole DR 40 mg Tablet PO (09:33)
--- NOTE | 2020-03-10 10:18 | PM.DCS ---
Discharge Providers Date of Admission: 03/05/20 17:13 Date of Discharge: March 10, 2020 Attending Provider at Admission: Luis Daniel Walsh MD Attending Provider at Discharge: Luis Daniel Walsh MD Primary Care Provider: ISABELLE Browne Diagnoses at Discharge Discharge Diagnosis (1) Acute respiratory failure with hypoxia: Status: Acute (2) Acute exacerbation of chronic obstructive pulmonary disease: Status: Acute (3) Pneumonia due to COVID-19 virus: Status: Acute (4) Vitamin D deficiency: Status: Acute (5) Morbid obesity: Status: Acute Permanent problem details: -BMI-52 kg/m2 (6) Essential (primary) hypertension: Status: Chronic (7) Chronic obstructive pulmonary disease, unspecified: Status: Chronic (8) CAD (coronary artery disease): Status: Acute Permanent problem details: -has known hx of CAD with prior stenting -on ASA, plavix, statin (9) Anxiety and depression: Status: Chronic (10) Alcohol abuse: Status: Acute Permanent problem details: -Long history of documented chronic alcohol abuse; acutely intoxicated resulting in fall and subsequent right trimalleolar fracture -EtOH level-206 -with timeline since last drink, less likely to experience alcohol withdrawal -CIWA protocol, thiamine/MVI/folate daily -fall/seizure/aspiration precautions -1:1 monitoring no longer required as mental status improved (11) Anemia: Status: Acute Reason for Visit Reason for Visit: COVID LIKE SYMPTOMS Hospital Course Hospital Course Zenaida Madsen is a 59 year old female with a past medical history of COPD, active smoker, CAD status post 2 stents, alcoholism, obesity, hypertension, hyperlipidemia, anxiety and depression who presents [facility] due to complaints of fatigue, malaise, diarrhea, shortness of breath, chest tightness. Patient was admitted to [facility] for acute hypoxic respiratory failure secondary to COVID-19 pneumonia, viral pneumonitis, secondary bacterial infection, COPD. She was admitted to the general medical floors Covid unit, received BiPAP during the night, Decadron, remdesivir, convalescent plasma, Rocephin, azithromycin, Advair, Spiriva, albuterol, vitamin C, zinc and clinically monitored. Patient had a slow clinical progress, but eventually clinically improved, ambulating with a mild degree of symptomatology, requiring 1 L on discharge. She will be discharged after 5 days of treatment, on oxygen therapy, Advair, Spiriva, albuterol, vitamin C, zinc, prednisone, doxycycline. Patient was advised to continue to socially isolate, self distance, hand wash, face mask. Follow-up with primary care in 1 to 2 weeks. Patient was initially anticoagulated during her hospitalization, with full dose Lovenox, however she developed anemia, hemoglobins as low 8.6, Lovenox was held, she was transfused 1 unit PRBC, no hemodynamic compromise, no bloody or black stools. Patient tells me that she has a history of a gastric ulcer. On discharge hemoglobin is 10.6, hemodynamically stable, no blood or black stools. In terms of anticoagulation for hypercoagulability prophylaxis I had an extensive discussion with patient, given her risk of GI bleed versus hypercoagulability, and her inpatient evidence of worsening anemia with anticoagulation we have decided not to anticoagulate her. After discussion of the risks and benefits, she voiced understanding, all questions answered agreed to proceed with no anticoagulation on discharge. She does take Plavix 75 mg daily. Should continue. She should continue to take Protonix 40 twice daily with Carafate. Patient was advised that if she were to have any calf pain or calf swelling or sudden worsening of shortness of breath this could be indication of of a DVT or PE and to come back to the emergency room. Patient was advised to continue to ambulate, monitor for warning signs. In addition given her anemia, she should repeat her CBC in 1 week, monitor for bloody or black stools, as she is on Plavix, and follow-up with surgery in 1 to 2 months for consideration of EGD. Physical Exam Const: COMMON NORMALS: no acute distress and patient oriented x3 HENMT: COMMON NORMALS: normocephalic HEAD & SCALP: normocephalic Neck/C-Spine: COMMON NORMALS: no JVD Resp: COMMON NORMALS: normal respiratory effort, No retractions, No use of accessory muscles and clear to auscultation bilaterally AUSCULTATION: clear to auscultation bilaterally Cardio: COMMON NORMALS: no JVD, regular rate, regular rhythm, S1 normal heart sound present and S2 normal heart sound present RATE: regular rate RHYTHM: regular rhythm HEART SOUNDS: S1 normal heart sound present and S2 normal heart sound present GI: COMMON NORMALS: Normal to inspection, nondistended, normoactive bowel sounds present, Soft to palpation, non-tender, No hepatosplenomegaly present, no masses and no bruits PALPATION: Yes Soft to palpation and Yes No hepatosplenomegaly present Extremity: COMMON NORMALS: capillary refill normal, no clubbing, cyanosis or edema, no calf tenderness and no pedal edema Neuro: COMMON NORMALS: patient oriented x3 Psych: COMMON NORMALS: mental status grossly normal Discharge Data Data Completed and Pending: Completed Studies During Hospitalization Category Date Time Status CT angio chest PE protcl [id number] Urge nt Cat Scan 03/05/20 14:17 Completed XR chest 1V keisha ble [id number] Routine Exams 03/06/20 07:00 Completed XR chest 1V keisha ble [id number] Routine Exams 03/09/20 07:00 Completed XR chest 1V keisha ble [id number] Routine Exams 03/10/20 07:00 Completed XR chest 1V keisha ble [id number] Stat Exams 03/05/20 12:47 Completed CV echo complete* [id number] Routine Ultrasound 03/06/20 02:23 Completed Pending at discharge Category Date Time Status ABO/Rh Type Routi ne Lab 03/06/20 19:00 Results Blood Culture Sta t Lab 03/05/20 13:10 Results C Reactive Protei n AM LABS Lab 03/11/20 04:00 Ordered Complete Blood Co unt w/Auto AM LABS Lab 03/11/20 04:00 Ordered Complete Crossmat ch Routine Lab 03/06/20 19:00 Results Comprehensive Met abolic Panel AM LA BS Lab 03/11/20 04:00 Ordered Convalescent Plas ma Routine Lab 03/06/20 19:00 Results Leukocyte Reduced RBC Routine Lab 03/06/20 19:00 Results Magnesium AM LABS Lab 03/11/20 04:00 Ordered NT Pro B Type Minda riuretic Pept QAM Lab 03/11/20 06:00 Ordered NT Pro B Type Minda riuretic Pept QAM Lab 03/12/20 06:00 Ordered Phosphorus AM LAB S Lab 03/11/20 04:00 Ordered Procalcitonin AM LABS Lab 03/11/20 04:00 Ordered Type and Screen R outine Lab 03/06/20 19:00 Results Labs from last 24 hours 03/10/20 03/10/20 03/06/20 04:05 04:05 19:00 WBC 10.4 H RBC 4.44 Hgb 10.7 L Hct 35.6 L MCV 80.2 L MCH 24.1 L MCHC 30.1 RDW 18.6 H Plt Count 170 MPV 10.7 H Neut % (Auto) 73.8 Lymph % (Auto) 15.9 Giles % (Auto) 9.7 Eos % (Auto) 0.1 Baso % (Auto) 0.1 Neut # (Auto) 7.71 H Lymph # (Auto) 1.7 Giles # (Auto) 1.0 H Eos # (Auto) 0.0 Baso # (Auto) 0.0 Nucleated RBC % (a uto) 0 Nucleated RBCs # 0.0 Sodium 142 Potassium 3.6 Chloride 105 Carbon Dioxide 28 Anion Gap 12.6 BUN 22 Creatinine 0.9 GFR Calculation 63.9 L Glucose 82 Calculated Osmolal ity 296 H Calcium 8.8 Phosphorus 3.4 Magnesium 2.1 Total Bilirubin 0.3 AST 26 ALT 21 Alkaline Phosphata se 74 C-Reactive Protein 4.2 NT-Pro-B Natriuret Pep 759 H Total Protein 6.0 L Albumin 3.2 L Globulin 2.8 Procalcitonin 0.06 Blood Type O Positive Rho(D) Type Positive Antibody Screen Negative Crossmatch See Detail Vitals: Last Vital Signs Temp 96.7 F L 03/10/20 08:00 Pulse 54 L 03/10/20 08:23 Resp 18 03/10/20 08:23 BP 160/93 03/10/20 08:00 Pulse Ox 96 03/10/20 08:23 Discharge Plan Discharge Patient Disposition: Home Condition: Stable Prescriptions: New albuterol sulfate [Ventolin HFA] 90 mcg/actuation Hfa Aerosol Inhaler 1 puff inhalation Q4H.RESPIRATORY PRN (Reason: shortness of breath or wheezing) Qty: 18 RF: 0 zinc gluconate 50 mg Tablet 50 mg PO DAILY 30 Days Qty: 30 RF: 0 folic acid 1 mg Tablet 1 mg PO DAILY 30 Days Qty: 30 RF: 0 prednisone 20 mg tablet 20 mg PO BID 5 Days Qty: 10 RF: 0 fluticasone propion-salmeterol [Advair Diskus] 500-50 mcg/dose Blister With Device 1 ea inhalation BID.RESPIRATORY Qty: 60 RF: 0 Spiriva with HandiHaler 18 mcg Capsule, W/Inhalation Device 18 mcg inhalation DAILY.RESPIRATORY Qty: 30 RF: 0 ascorbic acid (vitamin C) [Vitamin C] 500 mg Tablet 1,000 mg PO BID 30 Days Qty: 120 RF: 0 thiamine mononitrate (vit B1) [Vitamin B-1 (mononitrate)] 100 mg Tablet 100 mg PO DAILY 30 Days Qty: 30 RF: 0 sucralfate 100 mg/mL Suspension 1 g PO AC&BEDTIME 30 Days Qty: 420 RF: 0 guaifenesin [Mucinex] 600 mg Tablet Extended Release 12hr 600 mg PO BID PRN (Reason: congestion) 30 Days Qty: 30 RF: 0 doxycycline hyclate 100 mg capsule 100 mg PO BID 5 Days Qty: 10 RF: 0 Continued (DME) lace up ankle brace See Rx Instructions .Route .MEDSUPPLY Qty: 1 RF: 0 albuterol sulfate 2.5 mg /3 mL (0.083 %) solution for nebulization 2.5 mg INHALATION Q4H PRN (Reason: shortness of breath or wheezing) 30 Days Qty: 75 RF: 2 cyclobenzaprine 10 mg tablet 10 mg PO TID PRN (Reason: Muscle Spasm) Qty: 30 RF: 2 gabapentin 300 mg capsule See Rx Instructions .ROUTE .COMPLEX Qty: 150 RF: 2 hydroxyzine HCl 50 mg tablet 50 mg PO BID PRN (Reason: anxiety) Qty: 60 RF: 2 (DME) Wheelchair See Rx Instructions .ROUTE .MEDSUPPLY Qty: 1 RF: 0 meclizine 25 mg tablet 25 mg PO BID PRN (Reason: Dizziness Or Vertigo) Qty: 30 RF: 0 carvedilol 25 mg tablet 25 mg PO BID@0900,1800 RF: 0 potassium chloride 8 mEq capsule, extended release 8 meq PO DAILY@0900 RF: 0 Plavix 75 mg tablet 75 mg PO DAILY@0900 RF: 0 Protonix 40 mg tablet,delayed release (DR/EC) 40 mg PO BID@0900,1800 RF: 0 Lasix 20 mg tablet 20 mg PO DAILY PRN (Reason: edema) RF: 0 lisinopril 40 mg tablet 40 mg PO DAILY@0900 RF: 0 rosuvastatin 40 mg tablet 40 mg PO BEDTIME@2200 RF: 0 duloxetine 60 mg capsule,delayed release(DR/EC) 60 mg PO BID@0900,1800 RF: 0 B Complex Plus Vitamin C [id number] mg capsule 1 cap PO DAILY@0900 RF: 0 Pulmicort 1 mg/2 mL suspension for nebulization 1 mg INHALATION BID@0900,1800 RF: 0 Vitamin D3 125 mcg (5,000 unit) tablet 5,000 unit PO DAILY@0900 RF: 0 Discontinued azithromycin 250 mg tablet See Rx Instructions .ROUTE .COMPLEX Qty: 6 RF: 0 Discharge Orders: Discharge Order (Routine); Ordered 03/10/20 Ordered By: Luis Daniel Walsh Other Ambulatory Orders: Complete Blood Count w/Auto (Routine) Timeframe: 1 Week Location: Determined by Patient Ordered By: Luis Daniel Walsh Referrals: Jadiel Munoz FNP-C [Primary Care Provider] - 1 week Asa Holly MD [Physician] - 2 months Discharge Diet: Cardiac Discharge Activity: Resume usual activity Activity Restrictions/Additional Instructions: -Please hydrate well -take steroids, and inhalers as prescribed -Please continue to socially isolate, for least 2 weeks, hand wash, face mask, monitor for fevers, chills -Please continue to ambulate -You have a high risk of DVTs and PEs, however anticoagulation is not a good choice given your anemia -Continue Plavix -If you have bloody or black stools come back to the emergency room -Please follow-up with general surgery in 1 to 2 months for consideration of EGD for anemia -Follow-up with primary care in a week for repeat CBC Discharge Attestations Time Spent in Discharge Care*: greater than 30 min Status at Discharge: Cognitive status at discharge: cognitively intact, Behavioral status at discharge: cooperative, Quality Metrics Clinical Quality Measures During this hospital stay, did patient experience: None Coding Level of Care Code 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
[2020-03-10] MEDS: ondansetron 2 mg/ML SDV 2 mL 4 MG IVP (10:52)
[2020-03-10] MEDS: gabapentin 300 mg Capsule PO (12:46)
== END 2020-03-10 15:45 | disposition home or self-care (01) | DRG 177 ==
LOC: ER 18:50 → MEDSURG 03-06 02:00
PROVIDERS: Nurse Practitioner Family; Admitting Provider Family Medicine; Emergency Provider Family Medicine; PCP Nurse Practitioner; Visit Provider Family Medicine
DX: U07.1 COVID-19 (principal); J96.01 Acute respiratory failure with hypoxia; J12.82 Pneumonia due to coronavirus disease 2019; J15.9 Unspecified bacterial pneumonia; J44.1 Chronic obstructive pulmonary disease with (acute) exacerbation; J44.0 Chronic obstructive pulmonary disease with (acute) lower respiratory infection; Z68.41 Body mass index [BMI] 40.0-44.9, adult; E66.2 Morbid (severe) obesity with alveolar hypoventilation; I25.10 Atherosclerotic heart disease of native coronary artery without angina pectoris; I10 Essential (primary) hypertension; E55.9 Vitamin D deficiency, unspecified; Z95.5 Presence of coronary angioplasty implant and graft; Z79.82 Long term (current) use of aspirin; Z79.02 Long term (current) use of antithrombotics/antiplatelets; F41.8 Other specified anxiety disorders; Z91.81 History of falling; F17.210 Nicotine dependence, cigarettes, uncomplicated; F10.20 Alcohol dependence, uncomplicated; R19.7 Diarrhea, unspecified; E78.2 Mixed hyperlipidemia; M19.90 Unspecified osteoarthritis, unspecified site; Z98.84 Bariatric surgery status; Z96.643 Presence of artificial hip joint, bilateral; D64.9 Anemia, unspecified
CPT/HCPCS: 12345; 36415; 36430; 36600; 71045; 71275; 80051; 80053; 80061; 81001; 82274; 82330; 82550; 82803; 82805; 83605; 83690; 83735; 83880; 84100; 84145; 84443; 84484; 85025; 85378; 85651; 86140; 86850; 86900; 86920; 86927; 87040; 87426; 87635; 87804; 93005; 93306; 94640; 94660; 94762; 96372; 96375; 99282; 99283; 99284; J0131; J0456; J0696; J1100; J1650; J1940; J2405; J3411; J3535; J7030; J7040; J7050; P9016; P9017; Q9967

== ENCOUNTER 2020-03-17 02:26 | Inpatient (IN) | payer MEDICARE, MEDICAID, SELFPAY ==
[2020-03-17] VITALS (65 sets, daily range): BP systolic 64–146; BP diastolic 45–103; PULSE 65–104; RESP 12–21; TEMP 36.6–36.7; O2SAT 92–100; BMI 55.7
--- NOTE | 2020-03-17 | SCC_ITS ---
Procedure Done: 1. ORIF Bi malleolar ankle fracture 2. I+D down to bone Medial ankle wound 3. Complex closure of 14 cm wound layered 33.9 seconds of fluoroscopic guidance, for a cumulative dose of 0.58 mGy, was provided to Dr. Freeman by the radiology department. C-arm images of the LEFT ankle were saved for the patient's permanent record. [facility]
--- NOTE | 2020-03-17 02:33 | XRR_ITS ---
PROCEDURE INFORMATION: Exam: XR Left Tibia and Fibula Exam date and time: 03/17/2020 3:10 AM Age: 59 years old Clinical indication: Injury or trauma; Fall; Fracture, traumatic; Open fracture, severity classification not provided; Ankle; Left; Not specified TECHNIQUE: Imaging protocol: XR Left tibia and fibula. Views: 2 views. COMPARISON: No relevant prior studies available. FINDINGS: Bones/joints: Open fracture of the distal tibia and fibula; medial malleolus not at its expected location on the frontal image, but likely displaced laterally in association with the marked medial angulation of the ankle and apparent lateral dislocation of the talus and calcaneus. Prominent overriding and marked medial angulation of the comminuted fracture of the distal fibular diametaphysis. Apparent evidence of marked posterior dislocation of the ankle in relationship to the distal tibia and fibula on the lateral image despite no inclusion of most of the foot and most of the ankle on this view. No fracture of the proximal tibia and fibula and no dislocation at the knee. Soft tissues: Soft tissue swelling in the lower leg. Vasculature: Slight arterial calcifications. XR/XR tibia fibula LT 2V [id number] IMPRESSION: Open fracture dislocation of the ankle region as described above.
[2020-03-17 02:51] LABS: Basophils # 0.1 10^3/uL (0.0-0.1); Basophils % 0.3 %; Eosinophils % 0.2 %; Hematocrit 38.7 % (37.0-47.0); Hemoglobin 11.6 g/dL (11.5-15.3); Lymphocytes # 5.3 10^3/uL (0.8-4.8); Lymphocytes % 30.9 %; Mean Corpuscular Hemoglobin 24.6 pg (28.0-34.0); Mean Corpuscular Volume 82.2 fL (81-99); Mean Platelet Volume 10.7 fL (7.4-10.4); Monocytes # 1.1 10^3/uL (0.2-0.9); Monocytes % 6.6 %; Neutrophils # 10.51 10^3/uL (1.8-7.7); Neutrophils % 61.5 %; Nucleated Red Blood Cells % 0 %; Platelet Count 360 10^3/cmm (130-400); Red Blood Count 4.71 10^6/uL (4.1-5.3); Red Cell Distribution Width 20.3 % (12.1-15.1); White Blood Count 17.1 10^3/uL (4.0-10.0)
--- NOTE | 2020-03-17 02:56 | CTR_ITS ---
PROCEDURE INFORMATION: Exam: CT Head Without Contrast Exam date and time: 03/17/2020 3:10 AM Age: 59 years old Clinical indication: Injury or trauma; Fall; Blunt trauma (contusions or hematomas) TECHNIQUE: Imaging protocol: Computed tomography of the head without contrast. Radiation optimization: All CT scans at this facility use at least one of these dose optimization techniques: automated exposure control; mA and/or kV adjustment per patient size (includes targeted exams where dose is matched to clinical indication); or iterative reconstruction. COMPARISON: No relevant prior studies available. RADIATION DOSE METRICS: Total DLP (mGy-cm): 810.57 FINDINGS: Motion artifacts degrade some of the images Brain: Normal. No hemorrhage. Unremarkable white matter. No mass effect. Cerebral ventricles: No ventriculomegaly. Bones/joints: Unremarkable. No acute fracture. Paranasal sinuses: Visualized sinuses are unremarkable. No fluid levels. Mastoid air cells: Visualized mastoid air cells are well aerated. Soft tissues: Unremarkable. CT/CT head wo con* [id number] IMPRESSION: No acute intracranial abnormality. Radiation Dose CTDIVOL = (mGy): DLP = 810.57 (mGy-cm)
--- NOTE | 2020-03-17 02:56 | CTR_ITS ---
PROCEDURE INFORMATION: Exam: CT Cervical Spine Without Contrast Exam date and time: 03/17/2020 3:10 AM Age: 59 years old Clinical indication: Injury or trauma; Blunt trauma; Additional info: Fall TECHNIQUE: Imaging protocol: Computed tomography images of the cervical spine without contrast. Radiation optimization: All CT scans at this facility use at least one of these dose optimization techniques: automated exposure control; mA and/or kV adjustment per patient size (includes targeted exams where dose is matched to clinical indication); or iterative reconstruction. COMPARISON: CR XR soft tissue neck [id number] 05/05/2019 4:05 AM RADIATION DOSE METRICS: Total DLP (mGy-cm): 867.74 FINDINGS: Vertebrae: No acute fracture. Normal alignment. The disc heights are narrowed at C5-C6 and C6-C7 with osteophytes. Soft tissues: Unremarkable. Lungs: Ground-glass are changes are seen in the lung apices. CT/CT cervical spin wo con* [id number] IMPRESSION: No fracture or subluxation is seen. Degenerative changes are present. Chest x-rays are suggested to evaluate biapical ground-glass infiltrates. Radiation Dose CTDIVOL = (mGy): DLP = 867.74 (mGy-cm)
--- NOTE | 2020-03-17 02:58 | XRR_ITS ---
PROCEDURE INFORMATION: Exam: XR Left Ankle Exam date and time: 03/17/2020 3:10 AM Age: 59 years old Clinical indication: Device placement; Other: Post reduction TECHNIQUE: Imaging protocol: XR Left ankle. Views: 1 or 2 views. COMPARISON: CR Heel (Calcaneous) LEFT [id number] 11/08/2018 8:56 AM FINDINGS: Bones/joints: Interval comminuted fracture of the distal fibular diametaphysis associated with minimal posterior angulation and slight overriding along with slight medial displacement of the fibular shaft in relationship to the lateral malleolus. Suspicion of an interval nondisplaced fracture of the medial malleolus, also. Ankle mortise intact. Continued large posterior and plantar calcaneal spurs. Soft tissues: Interval large defect in the soft tissues of the anterior proximal ankle region. Soft tissue swelling. XR/XR ankle LT 2V [id number] IMPRESSION: Interval ankle injuries detailed above.
[2020-03-17] MEDS: fentaNYL 50 mcg/mL INJ 2mL 100 MCG IVP ×2 (03:10→03:35)
[2020-03-17] MEDS: sodium chloride 0.9% 1,000 ML 999 ML IV ×4 (03:11→09:58)
[2020-03-17] MEDS: tetanus-dipt-pertussis 0.5 mL SDV IM (03:14)
[2020-03-17 03:22] LABS: Slide Review Slide Review Perform
--- NOTE | 2020-03-17 03:22 | XRR_ITS ---
PROCEDURE INFORMATION: Exam: XR Chest, 1 View Exam date and time: 03/17/2020 4:23 AM Age: 59 years old Clinical indication: Device placement; Ett placement (vent status); Additional info: Intubation TECHNIQUE: Imaging protocol: XR of the chest Views: 1 view. COMPARISON: CR (CHEST, ) 03/10/2020 6:08 AM FINDINGS: The heart size is the mildly enlarged. An endotracheal tube is seen with the tip above the floyd. An NG tube is seen with the tip in the stomach. The lungs show scattered infiltrates. No pneumothorax or pleural effusion is seen. XR/XR chest 1V portable [id number] IMPRESSION: No pneumothorax is seen.
--- NOTE | 2020-03-17 03:22 | W.ED.EXTPRO ---
HPI - Extremity Problem General: Chief complaint: Extremity Injury, Lower Stated complaint: open ankle fx Time Seen by Provider: 03/17/20 02:28 History of Present Illness: HPI Narrative: 59-year-old female with a history of significant COPD, and use of alcohol. She comes in by ambulance this morning after a fall getting up from the toilet. She twisted her ankle and fell. She had to be sedated due to pain in the field for her open ankle fracture, and is not able to give further history. She was released on 03/10 from this hospital after being admitted for an acute exacerbation of COPD and respiratory failure with COVID-19. He was diagnosed with COVID-19 on 03/05. Complaint: extremity pain Onset (ago): minute(s) Pain Consistency: constant Location: left Radiation: none Relieving factors: nothing Associated symptoms: Reports no associated symptoms Review of Systems General: Reports: ROS unobtainable due to medical condition and ROS unobtainable due to mental status [facility] ED PFSH: Medical History (Updated 03/17/20 @ 05:25 by Rj De La O DO) Alcohol abuse Anxiety and depression CAD (coronary artery disease) has 2 stents Chronic obstructive pulmonary disease, unspecified COVID-19 (03/05/20) Essential (primary) hypertension Hepatic steatosis with hepatomegaly History of echocardiogram (03/06/20) Estimated EF 70%, normal diastolic function, normal pulmonary artery pressure, no valvular abnormality noted Intervertebral disc disorder with radiculopathy of lumbar region Mixed hyperlipidemia Morbid obesity BMI-52 kg/m2 Osteoarthritis, chronic Personal history of nicotine dependence Vancomycin-induced nephrotoxicity (~06/2019) Vitamin D deficiency Surgical History (Updated 03/17/20 @ 04:33 by Angela Johnson MD) H/O esophagogastroduodenoscopy (05/04/19) Status post gastric bypass with grade B esophagitis History of 2 sections History of cholecystectomy History of coronary artery stent placement History of gastric bypass History of hysterectomy History of left hip replacement History of right hip replacement S/P foot surgery, right 1) open trimalleolar fracture 05/2019 2) gangrene at operative site 06/2019 Status post colonoscopy with polypectomy (05/04/19) Descending colon polyp Family History Grandmother Hypertension Mother Hypertension Denies family history of Anesthesia complication Bleeding disorder Cancer Social History (Updated 03/17/20 @ 04:37 by Angela Johnson MD) Smoking and tobacco status: current every day smoker cigarettes Packs smoked per day: 0.5 Alcohol intake: current Alcohol intake frequency: 3 or more drinks per day Alcohol type: hard liquor Last alcohol use date: 06/16/19 Adopted: No Caregiver/support person: No Lives independently: Yes Household members: significant other Housing: House Marital status: Single Marital status details: Life partner Donny Nolen [phone] Number of children: 3 service: No Current occupational status: unemployed Current gender identity: Female Physical Exam Const: EXAM LIMITATIONS: altered mental status ORIENTATION/CONSCIOUSNESS: Yes patient obtunded HENMT: COMMON NORMALS: normocephalic, atraumatic, external ears normal and Normal external nose present HEAD & SCALP: normocephalic and atraumatic FACE & SINUS: normal facial exam NOSE: Normal external nose present and Normal nares present EXTERNAL EAR: Yes external ears normal Eye: COMMON NORMALS: Equal, round and reactive pupils present PUPIL: Yes Equal, round and reactive pupils present Neck/C-Spine: CERVICAL SPINE: No Cervical spine tenderness and No step off deformity Chest: COMMONS NORMALS: normal inspection of the chest Resp: EFFORT & INSPECTION: Yes tachypneic, Yes labored and Yes uses accessory muscles Cardio: COMMON NORMALS: regular rhythm RATE: tachycardic RHYTHM: regular rhythm GI: COMMON NORMALS: Soft to palpation PALPATION: Yes Soft to palpation Extremity: LEFT LOWER EXTREMITY: Yes ankle joint OTHER: Exam of the left lower leg reveals a fracture dislocation of the distal tibia and fibula/ankle with bone protruding from the medial ankle appearing to be the distal tibia. Large blood clot in wound. Minimal active bleeding. There is full displacement laterally and with external rotation of the foot Skin: NARRATIVE SKIN EXAM: 14 cm laceration over the anterior ankle. Skin avulsion over the left forearm. Ecchymosis to the left anterior abdomen. Procedures Intubation Time out performed: No sedative: Etomidate Mg Given: 40 paralytic: Succinylcholine Mg Given: 200 Laryngoscope: Johnathon Assist Device Used: fiber optic device ET Tube Size: 8 ET Tube Uncuffed: No Tube Secured Depth (cm): 23 Tube Secured Location: lips Tube Placement Confirmation: visualized tube passing through cords, equal breath sounds bilaterally, no breath sounds over epigastrium and confirmation by capnometry Patient Tolerated Procedure: well and no complications Orthopedic Fracture Reduction Fracture #1: Time Out Performed: No Side: left Fracture Reduction Location: tibia and fibula Analgesia: procedural sedation Technique: direct manipulation and traction/counter-traction Post Reduction X-rays Demonstrate: acceptable reduction Post-reduction neuro exam: intact Post-reduction vascular exam: intact Splint Applied: Yes Patient Tolerated Procedure: well Additional Comments: Fracture was irrigated with over 1 L of sterile saline Orthopedic Splinting/Casting Injury #1: Side: left Lower Extremity Injury Location: ankle Lower Extremity Immobilizer: posterior splint and stirrup splint Procedural Sedation Indication: fracture/dislocation reduction ASA Class: III Preparation: field coil winder applied, pulse oximeter, supplemental O2 applied and suction/airway equipment at bedside IV Etomidate dose (mg): 10 Patient Tolerated Procedure: no complications Course Consultations: Consultation #1: Lydia orthopedic surgery Vital Signs: Vital signs: Vital Signs Temperature 97.8 F 03/17/20 03:00 Pulse Rate 79 03/17/20 05:00 Respiratory Rate 14 03/17/20 05:00 Blood Pressure 107/74 03/17/20 05:00 Pulse Oximetry 99 03/17/20 05:00 MDM - Extremity (Nontraumatic) MDM Narrative: Medical decision making narrative: 59-year-old female with history of COPD with recent COVID-19 infection and respiratory failure. She also has a history of alcohol use. She presents after a fall in her bathroom. She has a fully displaced fracture dislocation with trimalleolar fracture of her left ankle. It is open through a 14 cm laceration anteriorly. X-ray is reduced, irrigated with saline, and laceration is loosely stapled for stabilization. She is placed in a stirrup and posterior splint. This was done under conscious sedation with etomidate. She did not become hypoxic with this. She is given tetanus and Ancef here in the ER. Unfortunately due to COPD, obesity, and sedation, blood gas was obtained, and showed a respiratory acidosis with a pH of 7.19. She was intubated without complication because of this. I spoke with the orthopedic surgeon on-call, who states he will take the patient to surgery later this morning. He is aware it is an open fracture. I also spoke with the hospitalist on-call who seeing the patient in the ER and will admit. Currently she is sedated on propofol, with great vital signs. Heart rate 76, blood pressure 108/67, respirations 14, saturations 99%. Chest x-ray shows proper placement of ET and OG tubes. It also shows some groundglass infiltrates consistent with her prior diagnosis of COVID-19. She will go to the ICU until she is ready for the OR. Lab Data: Labs: Lab Results 03/17/20 03/17/20 03/17/20 Range/Units 02:43 02:43 02:43 WBC 17.1 H (4.0-10.0) 10^3/ uL RBC 4.71 (4.1-5.3) 10^6/u L Hgb 11.6 (11.5-15.3) g/dL Hct 38.7 (37.0-47.0) % MCV 82.2 (81-99) fL MCH 24.6 L (28.0-34.0) pg MCHC 30.0 (30.0-36.0) g/dL RDW 20.3 H (12.1-15.1) % Plt Count 360 (130-400) 10^3/c mm MPV 10.7 H (7.4-10.4) fL Neut % (Auto) 61.5 % Lymph % (Auto) 30.9 % Peach % (Auto) 6.6 % Eos % (Auto) 0.2 % Baso % (Auto) 0.3 % Neut # (Auto) 10.51 H (1.8-7.7) 10^3/u L Lymph # (Auto) 5.3 H (0.8-4.8) 10^3/u L Peach # (Auto) 1.1 H (0.2-0.9) 10^3/u L Eos # (Auto) 0.0 (0.0-0.8) 10^3/u L Baso # (Auto) 0.1 (0.0-0.1) 10^3/u L Nucleated RBC % (a uto) 0 % Nucleated RBCs # 0.0 /100WBC PT Cancelled INR Cancelled APTT Cancelled Specimen Type Sample Site ABG pH (7.35-7.45) ABG pCO2 (35-45) mmHg ABG pO2 (80.0-100.0) mmH g ABG HCO3 (22-26) mmol/L ABG Base Excess (-2.0-2.0) mmol/ L Amrit Test Hematocrit (37-47) % O2 Delivery Device O2 Liters/Min % Weather Forcaster ID Sodium Cancelled Potassium Cancelled Chloride Cancelled Carbon Dioxide Cancelled Anion Gap Cancelled BUN Cancelled Creatinine Cancelled GFR Calculation Cancelled Glucose Cancelled Calculated Osmolal ity Cancelled Calcium Cancelled Total Bilirubin Cancelled AST Cancelled ALT Cancelled Alkaline Phosphata se Cancelled Creatine Kinase (26-192) U/L Total Protein Cancelled Albumin Cancelled Globulin Cancelled Urine Color (Yellow) Urine Appearance (CLEAR) Urine pH (5-7) Ur Specific Gravit y (1.005-1.030) Urine Protein (Negative) Urine Glucose (UA) (Normal) Urine Ketones (Negative) Urine Blood (Negative) Urine Nitrate (Negative) Urine Bilirubin (Negative) Urine Urobilinogen (Negative) mg/dL Ur Leukocyte Kitty ase (Negative) Urine RBC (0-2) /hpf Urine WBC (0-5) /hpf Ur Squamous Epith Cells (0-5) /hpf Amorphous Sediment /hpf Urine Bacteria (NONE) /hpf Hyaline Casts /lpf Ethyl Alcohol (0-10) mg/dL Blood Type Rho(D) Type Antibody Screen 03/17/20 03/17/20 03/17/20 Range/Units 03:13 03:13 03:13 WBC (4.0-10.0) 10^3/ uL RBC (4.1-5.3) 10^6/u L Hgb (11.5-15.3) g/dL Hct (37.0-47.0) % MCV (81-99) fL MCH (28.0-34.0) pg MCHC (30.0-36.0) g/dL RDW (12.1-15.1) % Plt Count (130-400) 10^3/c mm MPV (7.4-10.4) fL Neut % (Auto) % Lymph % (Auto) % Peach % (Auto) % Eos % (Auto) % Baso % (Auto) % Neut # (Auto) (1.8-7.7) 10^3/u L Lymph # (Auto) (0.8-4.8) 10^3/u L Peach # (Auto) (0.2-0.9) 10^3/u L Eos # (Auto) (0.0-0.8) 10^3/u L Baso # (Auto) (0.0-0.1) 10^3/u L Nucleated RBC % (a uto) % Nucleated RBCs # /100WBC PT 13.10 INR 0.97 APTT 22.9 L Specimen Type Sample Site ABG pH (7.35-7.45) ABG pCO2 (35-45) mmHg ABG pO2 (80.0-100.0) mmH g ABG HCO3 (22-26) mmol/L ABG Base Excess (-2.0-2.0) mmol/ L Amrit Test Hematocrit (37-47) % O2 Delivery Device O2 Liters/Min % Weather Forcaster ID Sodium 143 Potassium 3.4 L Chloride 109 H Carbon Dioxide 27 Anion Gap 10.4 BUN 18 Creatinine 0.8 GFR Calculation 73.2 L Glucose 121 H Calculated Osmolal ity 299 H Calcium 8.2 L Total Bilirubin 0.3 AST 82 H ALT 48 H Alkaline Phosphata se 87 Creatine Kinase (26-192) U/L Total Protein 6.0 L Albumin 3.1 L Globulin 2.9 Urine Color (Yellow) Urine Appearance (CLEAR) Urine pH (5-7) Ur Specific Gravit y (1.005-1.030) Urine Protein (Negative) Urine Glucose (UA) (Normal) Urine Ketones (Negative) Urine Blood (Negative) Urine Nitrate (Negative) Urine Bilirubin (Negative) Urine Urobilinogen (Negative) mg/dL Ur Leukocyte Kitty ase (Negative) Urine RBC (0-2) /hpf Urine WBC (0-5) /hpf Ur Squamous Epith Cells (0-5) /hpf Amorphous Sediment /hpf Urine Bacteria (NONE) /hpf Hyaline Casts /lpf Ethyl Alcohol (0-10) mg/dL Blood Type O Positive Rho(D) Type Positive Antibody Screen Negative 03/17/20 03/17/20 03/17/20 Range/Units 03:13 03:13 03:13 WBC (4.0-10.0) 10^3/ uL RBC (4.1-5.3) 10^6/u L Hgb (11.5-15.3) g/dL Hct (37.0-47.0) % MCV (81-99) fL MCH (28.0-34.0) pg MCHC (30.0-36.0) g/dL RDW (12.1-15.1) % Plt Count (130-400) 10^3/c mm MPV (7.4-10.4) fL Neut % (Auto) % Lymph % (Auto) % Peach % (Auto) % Eos % (Auto) % Baso % (Auto) % Neut # (Auto) (1.8-7.7) 10^3/u L Lymph # (Auto) (0.8-4.8) 10^3/u L Peach # (Auto) (0.2-0.9) 10^3/u L Eos # (Auto) (0.0-0.8) 10^3/u L Baso # (Auto) (0.0-0.1) 10^3/u L Nucleated RBC % (a uto) % Nucleated RBCs # /100WBC PT INR APTT Specimen Type Sample Site ABG pH (7.35-7.45) ABG pCO2 (35-45) mmHg ABG pO2 (80.0-100.0) mmH g ABG HCO3 (22-26) mmol/L ABG Base Excess (-2.0-2.0) mmol/ L Amrit Test Hematocrit (37-47) % O2 Delivery Device O2 Liters/Min % Weather Forcaster ID Sodium Potassium Chloride Carbon Dioxide Anion Gap BUN Creatinine GFR Calculation Glucose Calculated Osmolal ity Calcium Total Bilirubin AST ALT Alkaline Phosphata se Creatine Kinase 25 L (26-192) U/L Total Protein Albumin Globulin Urine Color Yellow Yellow (Yellow) Urine Appearance Clear Clear (CLEAR) Urine pH 5 5 (5-7) Ur Specific Gravit y 1.015 1.010 (1.005-1.030) Urine Protein Neg Neg (Negative) Urine Glucose (UA) Norm Norm (Normal) Urine Ketones Negative Negative (Negative) Urine Blood Neg Neg (Negative) Urine Nitrate Negative Negative (Negative) Urine Bilirubin Neg Neg (Negative) Urine Urobilinogen Norm Norm (Negative) mg/dL Ur Leukocyte Kitty ase Negative Negative (Negative) Urine RBC None (0-2) /hpf Urine WBC None (0-5) /hpf Ur Squamous Epith Cells 0-4 H (0-5) /hpf Amorphous Sediment 1+ /hpf Urine Bacteria Trace (NONE) /hpf Hyaline Casts 5-10 H /lpf Ethyl Alcohol 274 H (0-10) mg/dL Blood Type Rho(D) Type Antibody Screen 03/17/20 Range/Units 03:35 WBC (4.0-10.0) 10^3/ uL RBC (4.1-5.3) 10^6/u L Hgb (11.5-15.3) g/dL Hct (37.0-47.0) % MCV (81-99) fL MCH (28.0-34.0) pg MCHC (30.0-36.0) g/dL RDW (12.1-15.1) % Plt Count (130-400) 10^3/c mm MPV (7.4-10.4) fL Neut % (Auto) % Lymph % (Auto) % Peach % (Auto) % Eos % (Auto) % Baso % (Auto) % Neut # (Auto) (1.8-7.7) 10^3/u L Lymph # (Auto) (0.8-4.8) 10^3/u L Peach # (Auto) (0.2-0.9) 10^3/u L Eos # (Auto) (0.0-0.8) 10^3/u L Baso # (Auto) (0.0-0.1) 10^3/u L Nucleated RBC % (a uto) % Nucleated RBCs # /100WBC PT INR APTT Specimen Type Arterial Sample Site Brachial, right ABG pH 7.19 L (7.35-7.45) ABG pCO2 67.1 H* (35-45) mmHg ABG pO2 93.7 (80.0-100.0) mmH g ABG HCO3 25.8 (22-26) mmol/L ABG Base Excess -3.4 L (-2.0-2.0) mmol/ L Amrit Test Pos Hematocrit 35.2 L (37-47) % O2 Delivery Device Nc O2 Liters/Min 6.0 % Weather Forcaster ID Harkr Sodium Potassium Chloride Carbon Dioxide Anion Gap BUN Creatinine GFR Calculation Glucose Calculated Osmolal ity Calcium Total Bilirubin AST ALT Alkaline Phosphata se Creatine Kinase (26-192) U/L Total Protein Albumin Globulin Urine Color (Yellow) Urine Appearance (CLEAR) Urine pH (5-7) Ur Specific Gravit y (1.005-1.030) Urine Protein (Negative) Urine Glucose (UA) (Normal) Urine Ketones (Negative) Urine Blood (Negative) Urine Nitrate (Negative) Urine Bilirubin (Negative) Urine Urobilinogen (Negative) mg/dL Ur Leukocyte Kitty ase (Negative) Urine RBC (0-2) /hpf Urine WBC (0-5) /hpf Ur Squamous Epith Cells (0-5) /hpf Amorphous Sediment /hpf Urine Bacteria (NONE) /hpf Hyaline Casts /lpf Ethyl Alcohol (0-10) mg/dL Blood Type Rho(D) Type Antibody Screen Discharge Plan Discharge Patient Disposition: Admitted As Inpatient Clinical Impression: Open trimalleolar fracture of left ankle, Chronic obstructive pulmonary disease, unspecified, Alcohol abuse, Alcohol intoxication, Acute on chronic respiratory failure with hypercapnia, Intervertebral disc disorder with radiculopathy of lumbar region Condition: Fair Coding Level of Care Code ED Associate Director Of Development for Chg Fwd Exam Comprehensive
[2020-03-17 03:33] LABS: INR 0.97 (0.8-1.2); Partial Thromboplastin Time 22.9 SECONDS (23.9-36.7)
[2020-03-17 03:42] LABS: Alanine Aminotransferase 48 U/L (0-33); Albumin Level 3.1 g/dL (3.5-5.2); Alkaline Phosphatase 87 IU/L (35-105); Anion Gap 10.4 (5-19); Aspartate Amino Transferase 82 U/L (0-32); Blood Urea Nitrogen 18 mg/dL (8-23); Calcium 8.2 mg/dL (8.5-10.5); Carbon Dioxide 27 mmol/L (22-29); Chloride 109 mmol/L (98-107); Creatinine Clr Calc Pharmacy 108.3599; Globulin 2.9 g/dL (1.3-4.6); Glomerular Filtration Rate 73.2 mL/min (90-130); Glucose 121 mg/dL (65-115); Osmolality Calculated 299 mOsm/kg (285-295); Potassium 3.4 mmol/L (3.5-5.1); Sodium 143 mmol/L (136-145); Total Bilirubin 0.3 mg/dL (0.15-1.2)
[2020-03-17 03:43] LABS: Add Urine Microscopic? NO
[2020-03-17 03:45] LABS: ABG PH Result 7.19 (7.35-7.45); Arterial Blood Gas Hematocrit 35.2 % (37-47); Base Excess ABG -3.4 mmol/L (-2.0-2.0); Blood Gas Allen Test Pos; Blood Gas Sample Type Arterial; HCO3 ABG 25.8 mmol/L (22-26); PO2 ABG 93.7 mmHg (80.0-100.0)
[2020-03-17 03:46] LABS: ABG PCO2 67.1 mmHg (35-45); Blood Gas Operator Identificat HARKR; Blood Gas Sample Site Brachial, right; Oxygen Device NC
[2020-03-17 03:47] LABS: Bilirubin Urine Neg (Negative); Blood Urine Neg (Negative); Glucose Urine UA Norm (Normal); Ketones Urine Negative (Negative); Leukocyte Esterase Urine Negative (Negative); Nitrate Urine Negative (Negative); Protein Urine Neg (Negative); Specific Gravity, Urine 1.015 (1.005-1.030); Urine Appearance Clear (CLEAR); Urine Color Yellow (Yellow); Urobilinogen Urine Norm (Negative); pH Urine 5 (5-7)
[2020-03-17] MEDS: succinylcholine 20 mg/mL SDV 10mL 200 MG IVP (04:03)
[2020-03-17] MEDS: midazolam 1 mg/mL INJ 2 mL 4 MG IVP (04:12)
[2020-03-17] MEDS: propofol 1,000 MG/100 ML INJ 8.8 MG IV (04:25)
--- NOTE | 2020-03-17 04:33 | P.HP_ITS ---
Providers/Chief Complaint Admitting Physician: Angela Johnson MD Primary Care Provider: Jadiel Munoz, WAN-C Chief Complaint: open ankle fx History of Present Illness Zenaida Madsen is a 59 year old female who presented to the emergency room via ambulance after sustaining an open ankle fracture this evening. She had gone to the bathroom and fell down when trying to get up from the toilet. During the process of falling she twisted her ankle. Her foot was significantly rotated, with significant skin tearing and visible distal ends of the tibia and fibula extruding. She received 250 mg of ketamine and 1 mg of Dilaudid by EMS. She was sedate on arrival. Fractures were reduced in the emergency room after 10 mg of etomidate and a total of 200 mcg of fentanyl. ABG showed hypercapnia and respiratory acidosis. She has known COPD. She was ultimately intubated for airway protection. Case was discussed with Dr. Freeman, orthopedics, and he will see her in consultation for surgical intervention. Mrs. Madsen was recently hospitalized from March 05- for Covid. She received remdesivir, Decadron, convalescent plasma, Rocephin and azithromycin and other supportive treatment. She was requiring oxygen at discharge and was discharged on prednisone and doxycycline. She was to continue isolation for 2 more weeks. She received transfusion of 1 unit of packed red blood cells during recent hospital stay for drop in hemoglobin from 11-8. No sign of bleeding was identified but she had been on anticoagulation. She was provided Protonix and Carafate at discharge because of this with recommendation to follow-up for consideration of EGD once recovered from Covid. I am not able to get any history from her currently regarding how she was doing from a respiratory standpoint. Review of old records here shows that patient has had a similar presentation with open ankle fracture in the past. She has a history of alcohol abuse. Alcohol level was requested and was found to be elevated in the emergency room. Past medical history and such documented here is from prior records. Review of Systems General: Reports: ROS unobtainable due to endotracheal tube Medications/Allergies Home Medications Medication Instructions Recorded Confirmed Last Taken Type meclizine 25 mg PO BID PRN #30 tab 06/22/19 03/05/20 08/15/19 Rx lace up ankle brace #1 ea 09/28/19 03/05/20 Unknown Rx Wheelchair #1 each 11/16/19 03/05/20 Unknown Rx albuterol sulfate 2.5 mg INHALATION Q4H PRN 30 Days 01/09/20 03/05/20 Unknown Rx #75 ml cyclobenzaprine 10 mg tablet 10 mg PO TID PRN #30 tab 01/09/20 03/05/20 Unknown Rx gabapentin 300 mg capsule See Rx Instructions .ROUTE 01/09/20 03/05/20 Unknown Rx .COMPLEX #150 cap hydroxyzine HCl 50 mg tablet 50 mg PO BID PRN #60 tab 01/09/20 03/05/20 Unknown Rx B Complex Plus Vitamin C 1 cap PO DAILY@0900 03/05/20 03/05/20 Unknown History Lasix 20 mg PO DAILY PRN 03/05/20 03/05/20 Unknown History Plavix 75 mg PO DAILY@0900 03/05/20 03/05/20 Unknown History Protonix 40 mg PO BID@0900,1800 03/05/20 03/05/20 Unknown History Pulmicort 1 mg INHALATION BID@0900,1800 03/05/20 03/05/20 Unknown History Vitamin D3 5,000 unit PO DAILY@0900 03/05/20 03/05/20 Unknown History carvedilol 25 mg PO BID@0900,1800 03/05/20 03/05/20 Unknown History duloxetine 60 mg PO BID@0900,1800 03/05/20 03/05/20 Unknown History lisinopril 40 mg PO DAILY@0900 03/05/20 03/05/20 Unknown History potassium chloride 8 meq PO DAILY@0900 03/05/20 03/05/20 Unknown History rosuvastatin 40 mg PO BEDTIME@2200 03/05/20 03/05/20 Unknown History albuterol sulfate [Ventolin HFA] 1 puff INHALATION Q4H.RESPIRATORY 03/10/20 Unknown Rx PRN #18 g ascorbic acid (vitamin C) [Vitamin 1,000 mg PO BID 30 Days #120 tab 03/10/20 Unknown Rx C] fluticasone propion-salmeterol 1 ea INHALATION BID.RESPIRATORY 03/10/20 Unknown Rx [Advair Diskus] #60 ea folic acid 1 mg PO DAILY 30 Days #30 tab 03/10/20 Unknown Rx guaifenesin [Mucinex] 600 mg PO BID PRN 30 Days #30 tab 03/10/20 Unknown Rx sucralfate 1 g PO AC&BEDTIME 30 Days #420 ml 03/10/20 Unknown Rx thiamine mononitrate (vit B1) 100 mg PO DAILY 30 Days #30 tab 03/10/20 Unknown Rx [Vitamin B-1 (mononitrate)] umeclidinium [Incruse Ellipta] 1 inh INHALATION DAILY #30 ea 03/10/20 Unknown Rx zinc gluconate 50 mg PO DAILY 30 Days #30 tab 03/10/20 Unknown Rx Allergies Allergy/AdvReac Type Severity Reaction Status Date / Time ciprofloxacin AdvReac Unknown ADR-Swelling Verified 03/17/20 02:35 of the Eye doxycycline AdvReac Unknown ADR-Vomitin Verified 03/17/20 02:35 g Additional Medication Information Above medications were from discharge medication list a week ago. She should have completed her prednisone and doxycycline a couple of days ago PFSH Acute PFSH: Medical History Alcohol abuse Anxiety and depression CAD (coronary artery disease) has 2 stents Chronic obstructive pulmonary disease, unspecified COVID-19 (03/05/20) Essential (primary) hypertension Hepatic steatosis with hepatomegaly History of echocardiogram (03/06/20) Estimated EF 70%, normal diastolic function, normal pulmonary artery pressu re, no valvular abnormality noted Intervertebral disc disorder with radiculopathy of lumbar region Mixed hyperlipidemia Morbid obesity BMI-52 kg/m2 Osteoarthritis, chronic Personal history of nicotine dependence Vancomycin-induced nephrotoxicity (~06/2019) Vitamin D deficiency Surgical History (Updated 03/17/20 @ 04:33 by Angela Johnson MD) H/O esophagogastroduodenoscopy (05/04/19) Status post gastric bypass with grade B esophagitis History of 2 sections History of cholecystectomy History of coronary artery stent placement History of gastric bypass History of hysterectomy History of left hip replacement History of right hip replacement S/P foot surgery, right 1) open trimalleolar fracture 05/2019 2) gangrene at operative site 06/2019 Status post colonoscopy with polypectomy (05/04/19) Descending colon polyp Family History Grandmother Hypertension Mother Hypertension Denies family history of Anesthesia complication Bleeding disorder Cancer Social History (Updated 03/17/20 @ 04:37 by Angela Johnson MD) Smoking and tobacco status: current every day smoker cigarettes Packs smoked per day: 0.5 Alcohol intake: current Alcohol intake frequency: 3 or more drinks per day Alcohol type: hard liquor Last alcohol use date: 06/16/19 Adopted: No Caregiver/support person: No Lives independently: Yes Household members: significant other Housing: House Marital status: Single Marital status details: Life partner Donny Nolen [phone] Number of children: 3 service: No Current occupational status: unemployed Current gender identity: Female Vitals/I&O/Wt Last Vital Signs Pulse 96 03/17/20 03:40 Resp 14 03/17/20 03:40 BP 113/89 03/17/20 03:40 Pulse Ox 96 03/17/20 03:40 Weight last 48 hrs Weight 147.418 kg Physical Exam Narrative: EXAM NARRATIVE: Pictures above taken prior to initial reduction in the emergency room Const: OTHER: Sedated and on the ventilator currently HENMT: OTHER: Normocephalic atraumatic, lips are dry, moist oral mucosa Eye: OTHER: Pupil slightly sluggish, muddy sclera with some conjunctival injection Neck/C-Spine: OTHER: Large but supple Resp: OTHER: Clear to auscultation bilaterally Cardio: OTHER: Regular rhythm, distant heart sounds GI: OTHER: Abdomen soft, obese, positive bowel sounds : OTHER: Jacobo catheter noted, normal external genitalia Extremity: NARRATIVE EXTREMITY EXAM: Toes of both feet are similarly cool to touch, capillary refill at both great toes is right at 3 seconds. Deformities from prior surgery noted to the right ankle. Left lower extremity is in a splint. Toes have a lot of dried blood. I did remove some of the blood to be able to assess skin coloration during examination. There is some serosanguineous fluid on pillow underneath dressing but the dressing itself is clean dry and intact. Neuro: OTHER: Face symmetric, at times during examination moved both upper arms and tried to move both legs Psych: OTHER: Sedated Skin: OTHER: Skin tear to left upper extremity, bruising noted to the abdomen felt to be iatrogenic, IV in place in the left breast in the right upper extremity Urinary Catheter Management^: Jacobo: Cath Placed During This Visit: yes Urinary Catheter Date of Insertion: 03/17/20 Urinary Catheter Time of Insertion: 03:38 Data : 03/17/20 02:43 03/17/20 03:13 Other Labs: Laboratory Last Values WBC 17.1 10^3/uL (4.0-10.0) H 03/17/20 02:43 RBC 4.71 10^6/uL (4.1-5.3) 03/17/20 02:43 Hgb 11.6 g/dL (11.5-15.3) 03/17/20 02:43 Hct 38.7 % (37.0-47.0) 03/17/20 02:43 MCV 82.2 fL (81-99) 03/17/20 02:43 MCH 24.6 pg (28.0-34.0) L 03/17/20 02:43 MCHC 30.0 g/dL (30.0-36.0) 03/17/20 02:43 RDW 20.3 % (12.1-15.1) H 03/17/20 02:43 Plt Count 360 10^3/cmm (130-400) 03/17/20 02:43 MPV 10.7 fL (7.4-10.4) H 03/17/20 02:43 Neut % (Auto) 61.5 % 03/17/20 02:43 Lymph % (Auto) 30.9 % 03/17/20 02:43 [place] % (Auto) 6.6 % 03/17/20 02:43 Eos % (Auto) 0.2 % 03/17/20 02:43 Baso % (Auto) 0.3 % 03/17/20 02:43 Neut # (Auto) 10.51 10^3/uL (1.8-7.7) H 03/17/20 02:43 Lymph # (Auto) 5.3 10^3/uL (0.8-4.8) H 03/17/20 02:43 [place] # (Auto) 1.1 10^3/uL (0.2-0.9) H 03/17/20 02:43 Eos # (Auto) 0.0 10^3/uL (0.0-0.8) 03/17/20 02:43 Baso # (Auto) 0.1 10^3/uL (0.0-0.1) 03/17/20 02:43 Nucleated RBC % (auto) 0 % 03/17/20 02:43 Nucleated RBCs # 0.0 /100WBC 03/17/20 02:43 PT 13.10 SECONDS (12.1-14.9) 03/17/20 03:13 INR 0.97 (0.8-1.2) 03/17/20 03:13 APTT 22.9 SECONDS (23.9-36.7) L 03/17/20 03:13 Specimen Type Arterial 03/17/20 03:35 Sample Site Brachial, right 03/17/20 03:35 ABG pH 7.19 (7.35-7.45) L 03/17/20 03:35 ABG pCO2 67.1 mmHg (35-45) H* 03/17/20 03:35 ABG pO2 93.7 mmHg (80.0-100.0) 03/17/20 03:35 ABG HCO3 25.8 mmol/L (22-26) 03/17/20 03:35 ABG Base Excess -3.4 mmol/L (-2.0-2.0) L 03/17/20 03:35 Amrit Test Pos 03/17/20 03:35 Hematocrit 35.2 % (37-47) L 03/17/20 03:35 O2 Delivery Device Nc 03/17/20 03:35 O2 Liters/Min 6.0 % 03/17/20 03:35 Death Clearance Coordinator ID Harkr 03/17/20 03:35 Sodium 143 mmol/L (136-145) 03/17/20 03:13 Potassium 3.4 mmol/L (3.5-5.1) L 03/17/20 03:13 Chloride 109 mmol/L (98-107) H 03/17/20 03:13 Carbon Dioxide 27 mmol/L (22-29) 03/17/20 03:13 Anion Gap 10.4 (5-19) 03/17/20 03:13 BUN 18 mg/dL (8-23) 03/17/20 03:13 Creatinine 0.8 mg/dL (0.5-0.9) 03/17/20 03:13 GFR Calculation 73.2 mL/min (90-130) L 03/17/20 03:13 Glucose 121 mg/dL (65-115) H 03/17/20 03:13 Calculated Osmolality 299 mOsm/kg (285-295) H 03/17/20 03:13 Calcium 8.2 mg/dL (8.5-10.5) L 03/17/20 03:13 Total Bilirubin 0.3 mg/dL (0.15-1.2) 03/17/20 03:13 AST 82 U/L (0-32) H 03/17/20 03:13 ALT 48 U/L (0-33) H 03/17/20 03:13 Alkaline Phosphatase 87 IU/L (35-105) 03/17/20 03:13 Total Protein 6.0 g/dL (6.6-8.7) L 03/17/20 03:13 Albumin 3.1 g/dL (3.5-5.2) L 03/17/20 03:13 Globulin 2.9 g/dL (1.3-4.6) 03/17/20 03:13 Urine Color Yellow (Yellow) 03/17/20 03:13 Urine Appearance Clear (CLEAR) 03/17/20 03:13 Urine pH 5 (5-7) 03/17/20 03:13 Ur Specific [place] 1.015 (1.005-1.030) 03/17/20 03:13 Urine Protein Neg (Negative) 03/17/20 03:13 Urine Glucose (UA) Norm (Normal) 03/17/20 03:13 Urine Ketones Negative (Negative) 03/17/20 03:13 Urine Blood Neg (Negative) 03/17/20 03:13 Urine Nitrate Negative (Negative) 03/17/20 03:13 Urine Bilirubin Neg (Negative) 03/17/20 03:13 Urine Urobilinogen Norm mg/dL (Negative) 03/17/20 03:13 Ur Leukocyte Esterase Negative (Negative) 03/17/20 03:13 Blood Type O Positive 03/17/20 03:13 Rho(D) Type Positive 03/17/20 03:13 Antibody Screen Negative 03/17/20 03:13 CT Head: Radiologist's impression: FINDINGS: Motion artifacts degrade some of the images Brain: Normal. No hemorrhage. Unremarkable white matter. No mass effect. Cerebral ventricles: No ventriculomegaly. Bones/joints: Unremarkable. No acute fracture. Paranasal sinuses: Visualized sinuses are unremarkable. No fluid levels. Mastoid air cells: Visualized mastoid air cells are well aerated. Soft tissues: Unremarkable. CT/CT head wo con* [id number] IMPRESSION: No acute intracranial abnormality. CT C-spine: Radiologist's impression: FINDINGS: Vertebrae: No acute fracture. Normal alignment. The disc heights are narrowed at C5-C6 and C6-C7 with osteophytes. Soft tissues: Unremarkable. Lungs: Ground-glass are changes are seen in the lung apices. CT/CT cervical spin wo con* [id number] IMPRESSION: No fracture or subluxation is seen. Degenerative changes are present. Chest x-rays are suggested to evaluate biapical ground-glass infiltrates. A&P Assessment and plan (1) Open trimalleolar fracture of left ankle: Details of the fall are not known other than she was in the bathroom at home. Interestingly she has done something similar before involving her right ankle Status: Acute Qualifiers: Encounter type: initial encounter Open fracture type: open type III Qualified Code(s): S82.852C - Displaced trimalleolar fracture of left lower leg, initial encounter for open fracture type IIIA, IIIB, or IIIC (2) Alcohol intoxication: With a known history of alcohol abuse/what I suspect is dependence. This is the second episode of significant fracture which necessitates surgical intervention related to a fall while intoxicated. Status: Acute Qualifiers: Complication of substance-induced condition: with unspecified complication Qualified Code(s): F10.929 - Alcohol use, unspecified with intoxication, unspecified (3) Acute on chronic respiratory failure with hypercapnia: In part due to the necessary sedation and pain control in a patient with known COPD. Status: Acute (4) COVID-19: Discharged on March 10 after receiving treatment with remdesivir, dexamethasone and convalescent plasma plus antibiotics, not yet out of isolation, unknown current clinical symptoms, had been discharged on oxygen Status: Acute (5) CAD (coronary artery disease): Has had 2 previous stents, echocardiogram done earlier this month showed an ejection fraction of 70%, normal diastolic function and no valvular abnormalities Status: Chronic (6) Essential (primary) hypertension: Status: Chronic (7) Morbid obesity: Status: Chronic Additional A&P Information Leukocytosis Transaminase elevation likely secondary to intoxication History of peripheral vascular disease Status post transfusion of 1 unit of packed red blood cells when hospitalized earlier this month without known sign of gross bleeding Inpatient admission We will put in the viral ICU currently Maintain intubation currently as will need surgical intervention for right ankle Dr. Freeman has been consulted from orthopedics I have requested that EKG done in the emergency room be made available in the electronic record or a repeat EKG be done, there were no acute ST segment changes noted on my quick view of the paper EKG Mrs. Madsen received cefazolin in the emergency room as well as tetanus shot, CK level was checked IV fluids with potassium Monitor blood pressures with sedation Monitor for any evidence of significant alcohol withdrawal Check serial cardiac enzymes and EKGs Telemetry monitoring Will try to continue half of usual home beta-blockade Other home medications currently held Pulmonary toilet Monitor respiratory status for need to add additional management SCD to right lower extremity No pharmacological DVT prophylaxis currently secondary to need for surgical intervention Repeat CBC and electrolytes later on today Supportive care otherwise Full code administrative services coordinator to start assisting with disposition planning Attestations Medical Necessity Statement*: Anticipated stay greater than 2 midnights in a patient with a open ankle fracture that will require surgical intervention. She also necessitated intubation in the emergency room due to effects of necessary sedation for her fracture and fracture reduction. Other comorbid conditions and acute issues as noted above. Coding Level of Care Code Acute Incident Response Lead for Michael Pool Diagnoses Open trimalleolar fracture of left ankle S82.852C Encounter type: initial encounter Open fracture type: open type III Alcohol intoxication F10.929 Complication of substance-induced condition: with unspecified complication Acute on chronic respiratory failure with hypercapnia J96.22 COVID-19 U07.1 CAD (coronary artery disease) I25.10 Essential (primary) hypertension I10 Morbid obesity E66.01
[2020-03-17 04:53] LABS: Alcohol Level 274 mg/dL (0-10); Creatine Phosphokinase 25 U/L (26-192)
--- NOTE | 2020-03-17 04:55 | PC.NURSE ---
PT brought in via EMS for open FX to left ankle. Meds given. Moderate sedation done in order to reset. Pt required intubation. OG and Jacobo placed. X-ray confirmed placement.
[2020-03-17 05:15] LABS: Bilirubin Urine Neg (Negative); Blood Urine Neg (Negative); Glucose Urine UA Norm (Normal); Ketones Urine Negative (Negative); Leukocyte Esterase Urine Negative (Negative); Nitrate Urine Negative (Negative); Protein Urine Neg (Negative); Urine Appearance Clear (CLEAR); Urine Color Yellow (Yellow); Urobilinogen Urine Norm (Negative); pH Urine 5 (5-7)
[2020-03-17 05:18] LABS: Bacteria Urine TRACE /hpf; Squamous Epithelial Cell Urine 0-4 /hpf (0-5)
[2020-03-17 05:19] LABS: Add Urine Culture? No; Amorphous Sediment Urine 1+ /hpf
[2020-03-17 05:28] LABS: ABG PCO2 52.2 mmHg (35-45); ABG PH Result 7.26 (7.35-7.45); Arterial Blood Gas Hematocrit 30.2 % (37-47); Base Excess ABG -3.9 mmol/L (-2.0-2.0); Blood Gas Sample Type Arterial; HCO3 ABG 23.4 mmol/L (22-26)
[2020-03-17 05:29] LABS: Blood Gas Operator Identificat HARKR; Blood Gas Sample Site Brachial, right; Oxygen Device VENT
--- NOTE | 2020-03-17 06:58 | ECG_ITS ---
[facility] Test Date: 2020-03-17 Pat Name: Zenaida Madsen Department: Room: Gender: Female Medical Technologist Blood Bank: : 1960 Requested By: nAgela Johnson Order Number: [id number] Nair MD: Aimee Pelaez M.D. Measurements Intervals [place] Rate: 102 P: 74 RI: 158 QRS: 46 QRSD: 90 T: 56 QT: 333 QTc: 435 Interpretive Statements SINUS TACHYCARDIA NONSPECIFIC ST & T-WAVE ABNORMALITY ABNORMAL RHYTHM ECG INTERPRETATION BASED ON A DEFAULT AGE OF 40 YEARS Compared to ECG 03/05/2020 21:57:44 T-wave abnormality now present Electronically Signed On 03-17-2020 20:30:42 CUSTOMER RELATIONS CONSULTANT by Aimee Pelaez M.D. [id number] f
--- NOTE | 2020-03-17 08:03 | PC.NURSE ---
Pt released from soft wrist restraints for IV insertion. ROM done. Pt placed back in restraints.
[2020-03-17] MEDS: propofol 1,000 MG/100 ML INJ 22.1 MG IV (08:21)
--- NOTE | 2020-03-17 09:46 | ECG_ITS ---
[facility] ED Test Date: 2020-03-17 Pat Name: Zenaida Mdasen Department: Room: ICU19 Gender: Female Silvering Applicator: : 1960 Requested By: Angela Johnson Order Number: [id number] Korey MD: Monik Joyce M.D. Measurements Intervals [place] Rate: 73 P: 71 [place]: 144 QRS: 34 QRSD: 84 T: 48 QT: 400 QTc: 443 Interpretive Statements SINUS RHYTHM Compared to ECG 03/17/2020 02:33:13 Sinus tachycardia no longer present T-wave abnormality no longer present Electronically Signed On 03-19-2020 20:26:26 STEEL HANGER by Monik Joyce M.D. [id number]
--- NOTE | 2020-03-17 09:54 | PM.PN ---
Subjective Subjective: Interval history: Admitted overnight. H&P and labs noted. On transfer to the viral ICU patient was found to have a systolic blood pressure of 70. Prior to transfer the ICU patient had received 2 L of fluid over last 12 hours. Patient was given a fluid bolus of 2 L after which her mean pressures maintained over 65. Currently on examination patient is ventilated with a rate of 14, FiO2 of 28%, PEEP of 8 saturating 92% with clear 1.2 L urine in Jacobo bag. Patient is due to go to the OR with orthopedics later in the day today. Currently patient is hemodynamically stable. Medications: Medication Review Details: Above medications were from discharge medication list a week ago. She should have completed her prednisone and doxycycline a couple of days ago Vitals/I&O/Wt Last Vital Signs Temp 97.8 F 03/17/20 03:00 Pulse 70 03/17/20 08:15 Resp 21 H 03/17/20 08:58 BP 102/65 03/17/20 08:15 Pulse Ox 100 03/17/20 08:15 03/16/20 03/17/20 03/17/20 22:59 06:59 14:59 Intake Total 2104.228 / 2104.228 87.395 / 87.395 Balance 2104.228 / 2104.228 87.395 / 87.395 Weight last 48 hrs Weight 147.418 kg Physical Exam Narrative: EXAM NARRATIVE: General: Intubated, sedated HEENT: PERRLA, pupils bilaterally equal and reactive Chest: Bilateral coarse crackles all over the lung cloud, decreased air entry in lower zones CVS: S1-S2 regular, no murmurs, no tachycardia, no gallops, no rubs Abdomen: Soft, nontender, no organomegaly, bowel sounds present Neuro: Intubated sedated Extremities: Left leg bandaged without any soakage, toes pink and warm with good capillary refill. Urinary Catheter Management^: Jacobo: Cath Placed During This Visit: yes Reason for Continuing Indwelling Catheter: Required Immobilization for Trauma or Surgery or Anesthesia Urinary Catheter Date of Insertion: 03/17/20 Urinary Catheter Time of Insertion: 03:38 Data : 03/17/20 02:43 03/17/20 03:13 A&P Assessment and plan (1) Open trimalleolar fracture of left ankle: Status: Acute Qualifiers: Encounter type: initial encounter Open fracture type: open type III Qualified Code(s): S82.852C - Displaced trimalleolar fracture of left lower leg, initial encounter for open fracture type IIIA, IIIB, or IIIC (2) Acute on chronic respiratory failure with hypercapnia: Status: Acute (3) Alcohol intoxication: Status: Acute Qualifiers: Complication of substance-induced condition: with unspecified complication Qualified Code(s): F10.929 - Alcohol use, unspecified with intoxication, unspecified (4) COVID-19: Discharged on March 10 after receiving treatment with remdesivir, dexamethasone and convalescent plasma plus antibiotics, not yet out of isolation, unknown current clinical symptoms, had been discharged on oxygen Status: Acute (5) CAD (coronary artery disease): Has had 2 previous stents, echocardiogram done earlier this month showed an ejection fraction of 70%, normal diastolic function and no valvular abnormalities. For now hold off on aspirin. Continue statin through NG tube. Status: Chronic (6) Essential (primary) hypertension: Status: Chronic (7) Morbid obesity: Status: Chronic Additional A&P Information Open primary fracture of left ankle: Appreciate orthopedics recommendations. Patient to undergo OR today. Physical therapy, pain medications post extubation, anticoagulation as per orthopedics. Acute hypercapnic respiratory failure: Most likely secondary to pain medication in setting of morbid obesity, COPD and recent COVID-19 pneumonia: Patient on minimal ventilator setting for now. Keep intubated for now. Will do sedation vacation tomorrow morning post procedure. For now start patient on DuoNebs and budesonide. Vitamin C, zinc. Patient does not have any signs of infiltration at present on chest imaging. Check proBNP, procalcitonin, D-dimer, TSH, MRSA swab. For now start patient on Zosyn which will cover for aspiration, possible ventilator associated pneumonia. Aggressive pulmonary toilet. Alcohol intoxication: Alcohol level more than 200. Banana bag followed by D5 half NS at 75 cc/h. Folate, vitamin C, thiamine, multivitamin through NG tube. Patient currently sedated prior to intubation and transition over to Precedex and Ativan as per CIWA protocol. Hypertension: Keep mean arterial pressure more than 65 mmHg with goal blood pressure less than 140/90 mmHg. We will continue to monitor blood pressures. Full code. NPO. No pharmacological DVT prophylaxis as patient will be going to the OR. Attestations Medical Necessity Statement*: Patient requires further hospitalization for management of open primary fracture of left ankle, acute hypercapnic respiratory failure requiring intubation, alcohol intoxication in setting of recent COVID-19 pneumonia and morbid obesity Critical Care Time: Critical Care Time (min): 70 Coding Level of Care Code Acute Packaging Sales Representative for Chg Fwd Diagnoses Open trimalleolar fracture of left ankle S82.852C Encounter type: initial encounter Open fracture type: open type III Acute on chronic respiratory failure with hypercapnia J96.22 Alcohol intoxication F10.929 Complication of substance-induced condition: with unspecified complication COVID-19 U07.1 CAD (coronary artery disease) I25.10 Essential (primary) hypertension I10 Morbid obesity E66.01
[2020-03-17 09:56] LABS: ABG PCO2 35.6 mmHg (35-45); ABG PH Result 7.38 (7.35-7.45); Arterial Blood Gas Hematocrit 29.2 % (37-47); Base Excess ABG -3.4 mmol/L (-2.0-2.0); Blood Gas Allen Test Pos; Blood Gas Sample Type Arterial; HCO3 ABG 21.2 mmol/L (22-26)
[2020-03-17 09:59] LABS: Blood Gas Operator Identificat MONRO; Blood Gas Sample Site Radial, left; Oxygen Device VENT
[2020-03-17 10:34] LABS: Glucose Point of Care 79 mg/dL (70-110)
[2020-03-17] MEDS: famotidine 20 mg/2 mL INJ IVP ×2 (10:42→21:30)
[2020-03-17] MEDS: piperacillin-tazobactam 3.375 GM in sodium chloride 0.9% (plus) 50 ML IV ×2 (10:53→18:03)
[2020-03-17] MEDS: ipratropium-albuterol 3 mL Neb INHALATION ×3 (11:01→20:27)
[2020-03-17] MEDS: folic acid 1 MG, multivitamin inj 10 ML, thiamine 100 MG in sodium chloride 0.9% 1,000 ML 252.8 MG IV (11:07)
[2020-03-17] MEDS: propofol 1,000 MG/100 ML INJ 44.2 MG IV ×2 (12:03→14:28)
[2020-03-17] MEDS: dexmedetomidine 400 MCG in sodium chloride 0.9% (100 ml) 100 ML 7.7 MCG IV (12:28)
--- NOTE | 2020-03-17 13:46 | ECG_ITS ---
[facility] ED Test Date: 2020-03-17 Pat Name: Zenaida Madsen Department: Room: ICU19 Gender: Female Private Secretary: : 1960 Requested By: Angela Johnson Order Number: [id number] Korey MD: Monik Joyce M.D. Measurements Intervals Moore Rate: 79 P: 77 AK: 149 QRS: 31 QRSD: 85 T: 44 QT: 384 QTc: 441 Interpretive Statements SINUS RHYTHM Compared to ECG 03/17/2020 10:15:01 No significant changes Electronically Signed On 03-19-2020 20:26:11 MANAGER CUSTOMER by Monik Joyce M.D. [id number]
--- NOTE | 2020-03-17 14:20 | PM.CONSULT ---
Providers/Reason For Consult Consulting Physican/Specialty*: ortho Reason for Consult*: open ankle fracture Attending Physician: Jayden Gonzalez MD Primary Care Provider: ISABELLE Browne History of Present Illness History of Present Illness Zenaida Madsen is a 59 year old female who presented to the emergency room via ambulance after sustaining an open ankle fracture this evening. She had gone to the bathroom and fell down when trying to get up from the toilet. During the process of falling she twisted her ankle. Her foot was significantly rotated, with significant skin tearing and visible distal ends of the tibia and fibula extruding. She received 250 mg of ketamine and 1 mg of Dilaudid by EMS. She was sedate on arrival. Fractures were reduced in the emergency room after 10 mg of etomidate and a total of 200 mcg of fentanyl. ABG showed hypercapnia and respiratory acidosis. She has known COPD. She was ultimately intubated for airway protection. Review of Systems General: Reports: ROS unobtainable due to endotracheal tube, ROS unobtainable due to medical condition and ROS unobtainable due to mental status Musc: Denies: joint warmth Meds/Allergies Home Medications and Allergies Home Medications Medication Instructions Recorded Confirmed Last Taken Type meclizine 25 mg PO BID PRN #30 tab 06/22/19 03/17/20 08/15/19 Rx lace up ankle brace #1 ea 09/28/19 03/17/20 Unknown Rx Wheelchair #1 each 11/16/19 03/17/20 Unknown Rx albuterol sulfate 2.5 mg INHALATION Q4H PRN 30 Days 01/09/20 03/17/20 Unknown Rx #75 ml cyclobenzaprine 10 mg tablet 10 mg PO TID PRN #30 tab 01/09/20 03/17/20 Unknown Rx gabapentin 300 mg capsule See Rx Instructions .ROUTE 01/09/20 03/17/20 Unknown Rx .COMPLEX #150 cap hydroxyzine HCl 50 mg tablet 50 mg PO BID PRN #60 tab 01/09/20 03/17/20 Unknown Rx B Complex Plus Vitamin C 1 cap PO DAILY@0900 03/05/20 03/17/20 Unknown History budesonide [Pulmicort] 1 mg INHALATION BID@0900,1800 03/05/20 03/17/20 Unknown History carvedilol 25 mg PO BID@0900,1800 03/05/20 03/17/20 Unknown History cholecalciferol (vitamin D3) 5,000 unit PO DAILY@0900 03/05/20 03/17/20 Unknown History [Vitamin D3] clopidogrel [Plavix] 75 mg PO DAILY@0900 03/05/20 03/17/20 Unknown History duloxetine 60 mg PO BID@0900,1800 03/05/20 03/17/20 Unknown History furosemide [Lasix] 20 mg PO DAILY PRN 03/05/20 03/17/20 Unknown History lisinopril 40 mg PO DAILY@0900 03/05/20 03/17/20 Unknown History pantoprazole [Protonix] 40 mg PO BID@0900,1800 03/05/20 03/17/20 Unknown History potassium chloride 8 meq PO DAILY@0900 03/05/20 03/17/20 Unknown History rosuvastatin 40 mg PO BEDTIME@2200 03/05/20 03/17/20 Unknown History albuterol sulfate [Ventolin HFA] 1 puff INHALATION Q4H.RESPIRATORY 03/10/20 03/17/20 Unknown Rx PRN #18 g ascorbic acid (vitamin C) [Vitamin 1,000 mg PO BID 30 Days #120 tab 03/10/20 03/17/20 Unknown Rx C] fluticasone propion-salmeterol 1 ea INHALATION BID.RESPIRATORY 03/10/20 03/17/20 Unknown Rx [Advair Diskus] #60 ea folic acid 1 mg PO DAILY 30 Days #30 tab 03/10/20 03/17/20 Unknown Rx guaifenesin [Mucinex] 600 mg PO BID PRN 30 Days #30 tab 03/10/20 03/17/20 Unknown Rx sucralfate 1 g PO AC&BEDTIME 30 Days #420 ml 03/10/20 03/17/20 Unknown Rx thiamine mononitrate (vit B1) 100 mg PO DAILY 30 Days #30 tab 03/10/20 03/17/20 Unknown Rx [Vitamin B-1 (mononitrate)] umeclidinium [Incruse Ellipta] 1 inh INHALATION DAILY #30 ea 03/10/20 03/17/20 Unknown Rx zinc gluconate 50 mg PO DAILY 30 Days #30 tab 03/10/20 03/17/20 Unknown Rx Allergies Allergy/AdvReac Type Severity Reaction Status Date / Time ciprofloxacin AdvReac Unknown ADR-Swelling Verified 03/17/20 02:35 of the Eye doxycycline AdvReac Unknown ADR-Vomitin Verified 03/17/20 02:35 g Current Medications Current Medications Generic Name Dose Route Start Last Admin Trade Name Freq PRN Reason Stop Dose Admin Albuterol/Ipratropium 3 ml 03/17/20 12:00 03/17/20 11:01 Ipratropium-Albuterol 3 Ml Neb INHALATION 3 ml QID.RESPIRATORY DANYEL Administration Carvedilol 12.5 mg 03/17/20 09:00 03/17/20 09:17 Carvedilol 12.5 Mg Tablet PO Not Given DANYEL Famotidine 20 mg 03/17/20 10:00 03/17/20 10:42 Famotidine 20 Mg/2 Ml Inj IVP 20 mg Q12H DANYEL Administration Folic Acid 1 mg 03/17/20 09:00 03/17/20 09:17 Folic Acid 1 Mg Tablet PO Not Given DAILY DANYEL Propofol 1,000 mg in 100 mls @ 0 mls/hr 03/17/20 04:30 03/17/20 12:03 Diprivan IV 50 mcg/kg/min .Q0M DANYEL 44.2 mls/hr Administration Protocol Per Protocol Fentanyl 1,000 mcg/ Sodium 100 mls @ 0 mls/hr 03/17/20 09:30 03/17/20 10:09 Chloride IV 100 mcg/hr .Q0M DANYEL 10 mls/hr Titration Protocol Per Protocol Piperacillin Sod/Tazobactam 50 mls @ 12.5 mls/hr 03/17/20 11:00 03/17/20 10:53 Sod 3.375 gm/ Sodium Chloride IV 12.5 mls/hr Q8H DANYEL Administration Protocol Dexmedetomidine HCl 400 mcg/ 104 mls @ 0 mls/hr 03/17/20 09:45 03/17/20 12:28 Sodium Chloride IV 0.2 mcg/kg/hr .Q0M DANYEL 7.7 mls/hr Administration Protocol Per Protocol Multivitamins Therapeutic 1 tab 03/17/20 09:00 03/17/20 09:17 Multivitamin Therapeutic Tablet PO Not Given DAILY DANYEL Thiamine Mononitrate 100 mg 03/17/20 09:00 03/17/20 09:17 Thiamine 100 Mg Tablet PO Not Given DAILY DANYEL Zinc Gluconate 50 mg 03/17/20 11:00 03/17/20 11:21 Zinc Gluconate 50 Mg Tablet PO Not Given DAILY DANYEL Additional Medication Information Above medications were from discharge medication list a week ago. She should have completed her prednisone and doxycycline a couple of days ago PFSH Acute PFSH: Medical History (Updated 03/17/20 @ 14:29 by Wei Freeman DO) Alcohol abuse Anxiety and depression CAD (coronary artery disease) has 2 stents Chronic obstructive pulmonary disease, unspecified COVID-19 (03/05/20) Essential (primary) hypertension Hepatic steatosis with hepatomegaly History of echocardiogram (03/06/20) Estimated EF 70%, normal diastolic function, normal pulmonary artery pressure, no valvular abnormality noted Intervertebral disc disorder with radiculopathy of lumbar region Mixed hyperlipidemia Morbid obesity BMI ~55 kg/m2 Osteoarthritis, chronic Personal history of nicotine dependence Vancomycin-induced nephrotoxicity (~06/2019) Vitamin D deficiency Surgical History (Updated 03/17/20 @ 04:33 by Angela Johnson MD) H/O esophagogastroduodenoscopy (05/04/19) Status post gastric bypass with grade B esophagitis History of 2 sections History of cholecystectomy History of coronary artery stent placement History of gastric bypass History of hysterectomy History of left hip replacement History of right hip replacement S/P foot surgery, right 1) open trimalleolar fracture 05/2019 2) gangrene at operative site 06/2019 Status post colonoscopy with polypectomy (05/04/19) Descending colon polyp Family History Grandmother Hypertension Mother Hypertension Denies family history of Anesthesia complication Bleeding disorder Cancer Social History (Updated 03/17/20 @ 04:37 by Angela Johnson MD) Smoking and tobacco status: current every day smoker cigarettes Packs smoked per day: 0.5 Alcohol intake: current Alcohol intake frequency: 3 or more drinks per day Alcohol type: hard liquor Last alcohol use date: 06/16/19 Adopted: No Caregiver/support person: No Lives independently: Yes Household members: significant other Housing: House Marital status: Single Marital status details: Life partner Donny Nolen [phone] Number of children: 3 service: No Current occupational status: unemployed Current gender identity: Female Dietary Habits: Current diet type/program: regular Caffeine: Yes Safety: Seatbelt use: always Helmet use: No 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 CHEST: Normal inspiratory effort, normal respiratory rate. ABDOMEN: Soft and nontender. SKIN: In Splint but otherwise in tact Urinary Catheter Management^: Jacobo: Cath Placed During This Visit: yes Reason for Continuing Indwelling Catheter: Required Immobilization for Trauma or Surgery or Anesthesia Urinary Catheter Date of Insertion: 03/17/20 Urinary Catheter Time of Insertion: 03:38 A&P Assessment and plan (1) Open fracture ankle, trimalleolar: OR for ORIF and I+D Status: Acute Coding Level of Care Code Acute Equal Opportunity Officer for [facility] Yrn Diagnoses Open fracture ankle, trimalleolar S82.853B
[2020-03-17 14:44] LABS: Troponin(5th) Baseline 18 ng/L (0-10)
--- NOTE | 2020-03-17 15:34 | ANES.PREANE2 ---
Pre-Anesthetic Assessment Pre-Anesthetic Assessment: Height/Weight: Height 1.63 m Weight 147.418 kg Temp Pulse Resp BP Pulse Ox 98 F 79 16 64/45 98 03/17/20 08:45 03/17/20 14:00 03/17/20 13:21 03/17/20 08:45 03/17/20 11:04 Preop Diagnosis: External fixator right leg Proposed Procedure: Operation Date: 03/17/20 11:50 Proposed Procedures p ORIF Ankle(Left) - Wei H Lydia, DO Was Beta Miles taken within 24 hours: Yes Social: Social History: Alcohol and Tobacco Exam: Additional Exam Findings (including area of procedure): Intubated/ventilated from VICU Airway: Additional comments: ETT Pulmonary: Pulmonary: COPD and Sleep apnea Comments: Covid + (03/05) CV/HEM: CV/HEM: CAD, HTN and PVD : : None reported Metabolic: Metabolic: Morbid obesity and Thyroid Neuropsych: Neuropsych: Anxiety and Depression Anesthetic Plan: ASA status: 4 Anesthesia: General Other: A.line Risk of > 500 ml blood loss (7ml/kg in children): Yes, adequate IV access and fluids planned Meds/Allergies Current Medications: Current Medications Generic Name Dose Route Start Last Admin Trade Name Freq PRN Reason Stop Dose Admin Albuterol/Ipratrop ium 3 ml 03/17/20 12:00 03/17/20 11:01 Ipratropium-Albu terol 3 Ml Neb INHALATION 3 ml QID.RESPIRATORY S CH Administration Carvedilol 12.5 mg 03/17/20 09:00 03/17/20 09:17 Carvedilol 12.5 Mg Tablet PO Not Given DANYEL Famotidine 20 mg 03/17/20 10:00 03/17/20 10:42 Famotidine 20 Mg /2 Ml Inj IVP 20 mg Q12H DANYEL Administration Folic Acid 1 mg 03/17/20 09:00 03/17/20 09:17 Folic Acid 1 Mg Tablet PO Not Given DAILY DANYEL Propofol 1,000 mg in 100 m ls @ 0 mls/hr 03/17/20 04:30 03/17/20 14:28 Diprivan IV 50 mcg/kg/min .Q0M DANYEL 44.2 mls/hr Administration Protocol Per Protocol Fentanyl 1,000 mcg / Sodium 100 mls @ 0 mls/h r 03/17/20 09:30 03/17/20 10:09 Chloride IV 100 mcg/hr .Q0M DANYEL 10 mls/hr Titration Protocol Per Protocol Piperacillin Sod/T azobactam 50 mls @ 12.5 mls /hr 03/17/20 11:00 03/17/20 10:53 Sod 3.375 gm/ So dium Chloride IV 12.5 mls/hr Q8H DANYEL Administration Protocol Dexmedetomidine HC l 400 mcg/ 104 mls @ 0 mls/h r 03/17/20 09:45 03/17/20 12:28 Sodium Chloride IV 0.2 mcg/kg/hr .Q0M DANYEL 7.7 mls/hr Administration Protocol Per Protocol Multivitamins Ther apeutic 1 tab 03/17/20 09:00 03/17/20 09:17 Multivitamin The rapeutic Tablet PO Not Given DAILY DANYEL Thiamine Mononitra te 100 mg 03/17/20 09:00 03/17/20 09:17 Thiamine 100 Mg Tablet PO Not Given DAILY DANYEL Zinc Gluconate 50 mg 03/17/20 11:00 03/17/20 11:21 Zinc Gluconate 5 0 Mg Tablet PO Not Given DAILY DANYEL PFSH Anesthesia PFSH: Medical History (Updated 03/17/20 @ 14:29 by Wei Freeman DO) Alcohol abuse Anxiety and depression CAD (coronary artery disease) has 2 stents Chronic obstructive pulmonary disease, unspecified COVID-19 (03/05/20) Essential (primary) hypertension Hepatic steatosis with hepatomegaly History of echocardiogram (03/06/20) Estimated EF 70%, normal diastolic function, normal pulmonary artery pressure, no valvular abnormality noted Intervertebral disc disorder with radiculopathy of lumbar region Mixed hyperlipidemia Morbid obesity BMI ~55 kg/m2 Osteoarthritis, chronic Personal history of nicotine dependence Vancomycin-induced nephrotoxicity (~06/2019) Vitamin D deficiency Surgical History (Updated 03/17/20 @ 04:33 by Angela Johnson MD) H/O esophagogastroduodenoscopy (05/04/19) Status post gastric bypass with grade B esophagitis History of 2 sections History of cholecystectomy History of coronary artery stent placement History of gastric bypass History of hysterectomy History of left hip replacement History of right hip replacement S/P foot surgery, right 1) open trimalleolar fracture 05/2019 2) gangrene at operative site 06/2019 Status post colonoscopy with polypectomy (05/04/19) Descending colon polyp Family History Grandmother Hypertension Mother Hypertension Denies family history of Anesthesia complication Bleeding disorder Cancer Social History (Updated 03/17/20 @ 04:37 by Angela Johnson MD) Smoking and tobacco status: current every day smoker cigarettes Packs smoked per day: 0.5 Alcohol intake: current Alcohol intake frequency: 3 or more drinks per day Alcohol type: hard liquor Last alcohol use date: 06/16/19 Adopted: No Caregiver/support person: No Lives independently: Yes Household members: significant other Housing: House Marital status: Single Marital status details: Life partner Donny Nolen [phone] Number of children: 3 service: No Current occupational status: unemployed Current gender identity: Female Data Anesthesia CBC & Chem 7: 03/17/20 02:43 03/17/20 03:13 Other Labs: Laboratory Results - last 48 hr 03/17/20 03/17/20 03/17/20 02:43 02:43 02:43 WBC 17.1 H RBC 4.71 Hgb 11.6 Hct 38.7 MCV 82.2 MCH 24.6 L MCHC 30.0 RDW 20.3 H Plt Count 360 MPV 10.7 H Neut % (Auto) 61.5 Lymph % (Auto) 30.9 [place] % (Auto) 6.6 Eos % (Auto) 0.2 Baso % (Auto) 0.3 Neut # (Auto) 10.51 H Lymph # (Auto) 5.3 H [place] # (Auto) 1.1 H Eos # (Auto) 0.0 Baso # (Auto) 0.1 Nucleated RBC % (auto) 0 Nucleated RBCs # 0.0 PT Cancelled INR Cancelled APTT Cancelled Specimen Type Sample Site ABG pH ABG pCO2 ABG pO2 ABG HCO3 ABG Base Excess Amrit Test Hematocrit O2 Delivery Device O2 Liters/Min Mechanical Rate FiO2 Tidal Volume PEEP Inspector Watch Assembly ID Sodium Cancelled Potassium Cancelled Chloride Cancelled Carbon Dioxide Cancelled Anion Gap Cancelled BUN Cancelled Creatinine Cancelled GFR Calculation Cancelled Glucose Cancelled POC Glucose Calculated Osmolality Cancelled Calcium Cancelled Total Bilirubin Cancelled AST Cancelled ALT Cancelled Alkaline Phosphatase Cancelled Creatine Kinase Troponin T Baseline Total Protein Cancelled Albumin Cancelled Globulin Cancelled Urine Color Urine Appearance Urine pH Ur Specific [place] Urine Protein Urine Glucose (UA) Urine Ketones Urine Blood Urine Nitrate Urine Bilirubin Urine Urobilinogen Ur Leukocyte Esterase Urine RBC Urine WBC Ur Squamous Epith Cells Amorphous Sediment Urine Bacteria Hyaline Casts Ethyl Alcohol Blood Type Rho(D) Type Antibody Screen 03/17/20 03/17/20 03/17/20 03:13 03:13 03:13 WBC RBC Hgb Hct MCV MCH MCHC RDW Plt Count MPV Neut % (Auto) Lymph % (Auto) [place] % (Auto) Eos % (Auto) Baso % (Auto) Neut # (Auto) Lymph # (Auto) [place] # (Auto) Eos # (Auto) Baso # (Auto) Nucleated RBC % (auto) Nucleated RBCs # PT 13.10 INR 0.97 APTT 22.9 L Specimen Type Sample Site ABG pH ABG pCO2 ABG pO2 ABG HCO3 ABG Base Excess Amrit Test Hematocrit O2 Delivery Device O2 Liters/Min Mechanical Rate FiO2 Tidal Volume PEEP Inspector Watch Assembly ID Sodium 143 Potassium 3.4 L Chloride 109 H Carbon Dioxide 27 Anion Gap 10.4 BUN 18 Creatinine 0.8 GFR Calculation 73.2 L Glucose 121 H POC Glucose Calculated Osmolality 299 H Calcium 8.2 L Total Bilirubin 0.3 AST 82 H ALT 48 H Alkaline Phosphatase 87 Creatine Kinase Troponin T Baseline Total Protein 6.0 L Albumin 3.1 L Globulin 2.9 Urine Color Urine Appearance Urine pH Ur Specific [place] Urine Protein Urine Glucose (UA) Urine Ketones Urine Blood Urine Nitrate Urine Bilirubin Urine Urobilinogen Ur Leukocyte Esterase Urine RBC Urine WBC Ur Squamous Epith Cells Amorphous Sediment Urine Bacteria Hyaline Casts Ethyl Alcohol Blood Type O Positive Rho(D) Type Positive Antibody Screen Negative 03/17/20 03/17/20 03/17/20 03:13 03:13 03:13 WBC RBC Hgb Hct MCV MCH MCHC RDW Plt Count MPV Neut % (Auto) Lymph % (Auto) [place] % (Auto) Eos % (Auto) Baso % (Auto) Neut # (Auto) Lymph # (Auto) [place] # (Auto) Eos # (Auto) Baso # (Auto) Nucleated RBC % (auto) Nucleated RBCs # PT INR APTT Specimen Type Sample Site ABG pH ABG pCO2 ABG pO2 ABG HCO3 ABG Base Excess Amrit Test Hematocrit O2 Delivery Device O2 Liters/Min Mechanical Rate FiO2 Tidal Volume PEEP Inspector Watch Assembly ID Sodium Potassium Chloride Carbon Dioxide Anion Gap BUN Creatinine GFR Calculation Glucose POC Glucose Calculated Osmolality Calcium Total Bilirubin AST ALT Alkaline Phosphatase Creatine Kinase 25 L Troponin T Baseline Total Protein Albumin Globulin Urine Color Yellow Yellow Urine Appearance Clear Clear Urine pH 5 5 Ur Specific [place] 1.015 1.010 Urine Protein Neg Neg Urine Glucose (UA) Norm Norm Urine Ketones Negative Negative Urine Blood Neg Neg Urine Nitrate Negative Negative Urine Bilirubin Neg Neg Urine Urobilinogen Norm Norm Ur Leukocyte Esterase Negative Negative Urine RBC None Urine WBC None Ur Squamous Epith Cells 0-4 H Amorphous Sediment 1+ Urine Bacteria Trace Hyaline Casts 5-10 H Ethyl Alcohol 274 H Blood Type Rho(D) Type Antibody Screen 03/17/20 03/17/20 03/17/20 03:35 05:18 09:44 WBC RBC Hgb Hct MCV MCH MCHC RDW Plt Count MPV Neut % (Auto) Lymph % (Auto) [place] % (Auto) Eos % (Auto) Baso % (Auto) Neut # (Auto) Lymph # (Auto) [place] # (Auto) Eos # (Auto) Baso # (Auto) Nucleated RBC % (auto) Nucleated RBCs # PT INR APTT Specimen Type Arterial Arterial Arterial Sample Site Brachial, right Brachial, right Radial, left ABG pH 7.19 L 7.26 L 7.38 ABG pCO2 67.1 H* 52.2 H 35.6 ABG pO2 93.7 138.0 H 143.0 H ABG HCO3 25.8 23.4 21.2 L ABG Base Excess -3.4 L -3.9 L -3.4 L Amrit Test Pos N/a Pos Hematocrit 35.2 L 30.2 L 29.2 L O2 Delivery Device Nc Vent Vent O2 Liters/Min 6.0 Mechanical Rate 14.0 FiO2 60.0 40.0 Tidal Volume 0.50 0.50 PEEP 6.0 8.0 Inspector Watch Assembly ID Harkr Harkr Monro Sodium Potassium Chloride Carbon Dioxide Anion Gap BUN Creatinine GFR Calculation Glucose POC Glucose Calculated Osmolality Calcium Total Bilirubin AST ALT Alkaline Phosphatase Creatine Kinase Troponin T Baseline Total Protein Albumin Globulin Urine Color Urine Appearance Urine pH Ur Specific [place] Urine Protein Urine Glucose (UA) Urine Ketones Urine Blood Urine Nitrate Urine Bilirubin Urine Urobilinogen Ur Leukocyte Esterase Urine RBC Urine WBC Ur Squamous Epith Cells Amorphous Sediment Urine Bacteria Hyaline Casts Ethyl Alcohol Blood Type Rho(D) Type Antibody Screen 03/17/20 03/17/20 09:53 13:00 WBC RBC Hgb Hct MCV MCH MCHC RDW Plt Count MPV Neut % (Auto) Lymph % (Auto) [place] % (Auto) Eos % (Auto) Baso % (Auto) Neut # (Auto) Lymph # (Auto) [place] # (Auto) Eos # (Auto) Baso # (Auto) Nucleated RBC % (auto) Nucleated RBCs # PT INR APTT Specimen Type Sample Site ABG pH ABG pCO2 ABG pO2 ABG HCO3 ABG Base Excess Amrit Test Hematocrit O2 Delivery Device O2 Liters/Min Mechanical Rate FiO2 Tidal Volume PEEP Inspector Watch Assembly ID Sodium Potassium Chloride Carbon Dioxide Anion Gap BUN Creatinine GFR Calculation Glucose POC Glucose 79 Calculated Osmolality Calcium Total Bilirubin AST ALT Alkaline Phosphatase Creatine Kinase Troponin T Baseline 18 H Total Protein Albumin Globulin Urine Color Urine Appearance Urine pH Ur Specific [place] Urine Protein Urine Glucose (UA) Urine Ketones Urine Blood Urine Nitrate Urine Bilirubin Urine Urobilinogen Ur Leukocyte Esterase Urine RBC Urine WBC Ur Squamous Epith Cells Amorphous Sediment Urine Bacteria Hyaline Casts Ethyl Alcohol Blood Type Rho(D) Type Antibody Screen Cardiac Studies: No Data to Display
--- NOTE | 2020-03-17 15:36 | ANES.PROC ---
Anesthesia Procedures Procedure/Date: 03/17/20 Arterial Line: Time Out Performed: Yes Consent: requested by attending/covering physician and emergency procedure Size (Gauge): 20 Technique Used: guide wire technique Post-Procedure: dry sterile dressing placed Patient Tolerated Procedure: well Complications: none Site: left and radial
[2020-03-17 16:25] LABS: Basophils % 0.3 %; Eosinophils % 0.3 %; Hematocrit 31.6 % (37.0-47.0); Lymphocytes # 2.3 10^3/uL (0.8-4.8); Lymphocytes % 19.2 %; Mean Corpuscular HGB Conc 28.5 g/dL (30.0-36.0); Mean Corpuscular Hemoglobin 24.2 pg (28.0-34.0); Mean Corpuscular Volume 84.9 fL (81-99); Mean Platelet Volume 10.8 fL (7.4-10.4); Monocytes % 8.3 %; Neutrophils # 8.58 10^3/uL (1.8-7.7); Neutrophils % 71.6 %; Nucleated Red Blood Cells % 0 %; Platelet Count 210 10^3/cmm (130-400); Red Blood Count 3.72 10^6/uL (4.1-5.3); Red Cell Distribution Width 20.4 % (12.1-15.1)
--- NOTE | 2020-03-17 16:26 | PC.NURSE ---
Patient in OR
--- NOTE | 2020-03-17 16:42 | PM.OP ---
Operative Report Date of procedure: March 17, 2020 Pre-op Diagnosis: grade 3a open bi malleolar ankle fracture Post-op diagnosis: same Procedure Done: 1. ORIF Bi malleolar ankle fracture 2. I+D down to bone Medial ankle wound 3. Complex closure of 14 cm wound layered Surgeon: Wei Freeman Anesthesia: General Estimated blood loss (mL): 10 Condition: stable Disposition: PACU Procedure: 1. ORIF Bi malleolar ankle fracture 2. I+D down to bone Medial ankle wound 3. Complex closure of 14 cm wound layered Patient was intubated as unable to get a consent from her but she had a significantly large wide open wound. And she knew she was going to surgery. Patient was brought to the operative suite placed in supine position all areas impingement well-padded patient's prepped and draped in a sterile fashion. Attention was first brought to the wound the wound was approximate 14 cm in length narcisa were removed from it. Wound was then irrigated with 3 L of saline with cystoscopy tubing. Using sharp dissection soft tissue was debrided that was necrotic. Bone was scraped and small pieces of bone were removed. Once the wound was felt to be adequately cleaned of the bone was adequately cleaned. Attention was then brought to the fractures. Brought to the medial malleolus since we are looking directly at it. The medial malleolus was reduced and and 2 guidewires were passed through it. 2 partially threaded headless screws were placed to hold the medial malleolus reduced. Guidewires and removed. Next attention was brought to the lateral malleolus. Skin surgeon made along the lateral malleolus fracture was reduced using [id number] reduction clamps and then a Baldwin lateral fibular plate was placed. 3 cortical screws were placed proximally. 4 locking screws were placed distally. And one locking screws placed proximally. Next attention was placed on the medial 14 cm wound. 2-0 Vicryl was used to close the subcu. And then a trauma stitch was then used to take tension off the wound. It was closed in a layered fashion. Wound was able to be closed completely. Was brought to the lateral wound with fibula was broken. This was closed in a layered fashion as well with 2-0 Vicryl and nylon suture. AP lateral fluoroscopy ensured the fracture and hardware improved positions. And then patient was placed in a posterior splint transferred to the ICU in stable condition.
--- NOTE | 2020-03-17 16:43 | ANE.PACU2 ---
Inpatient post-anesthesia follow up: Airway intact: Yes (ETT) Vital signs: Temperature 98.1 F Pulse Rate [Monito r] 85 Pulse Rate 80 Respiratory Rate 21 Blood Pressure [Ri ght Arm] 132/103 Blood Pressure 105/70 Pulse Oximetry 97 Oxygen Delivery Me thod Mechanical Ventila tion Oxygen Flow Rate 15 Fraction of Inspir ed Oxygen 28 Hydration adequate: Yes Nausea and vomiting: No Pain level: 2 Additional Comments: Intubated/ventilated to ICU. Stable no pressors.
--- NOTE | 2020-03-17 17:13 | XR_ITS ---
WS: [id number] C-ARM RADIOGRAPHS LEFT ANKLE; 5 IMAGES HISTORY: FX REPAIR COMPARISON: 03/17/2020 Intraoperative plate and screw fixation distal fibular fracture which is in good alignment. 2 cortica l screws through the medial malleolus with normal alignment. No widening of the ankle mortise. XR/XR ankle LT min 3V* [id number] IMPRESSION: Bimalleolar ORIF with fracture fragments in good alignment.
[2020-03-17 17:27] LABS: Troponin 5 2HR 19.42 ng/L (0-10); Troponin 5 2HR Delta 1.42 ABS# (0-10)
[2020-03-17 17:46] LABS: Blood Urea Nitrogen 13 mg/dL (8-23); Calcium 7.4 mg/dL (8.5-10.5); Carbon Dioxide 22 mmol/L (22-29); Chloride 112 mmol/L (98-107); Glucose 68 mg/dL (65-115); Osmolality Calculated 294 mOsm/kg (285-295); Sodium 143 mmol/L (136-145)
[2020-03-17 17:49] LABS: Anion Gap 12.1 (5-19); Potassium 3.1 mmol/L (3.5-5.1)
[2020-03-17] MEDS: D5-NS 0.45% + KCL 20 mEq 20 MEQ/1,000 ML BAG 75 MEQ IV (18:02)
[2020-03-17] MEDS: ascorbic acid 500 mg Tablet 1000 MG PO (18:02)
[2020-03-17 18:16] LABS: NT Pro B Type Natriuretic Pept 166 pg/mL (0-125); Thyroid Stimulating Hormone 3.19 uIU/mL (0.27-4.20)
[2020-03-17 18:27] LABS: Iron 33 ug/dL (37-145)
--- NOTE | 2020-03-17 18:45 | PC.NURSE ---
Received beside report on patient from Suzanna WHITMORE. Assumed care at this time.
[2020-03-17 19:33] LABS: Percent Saturation 11.2 % (20-50); Total Iron Binding Capacity 293 mcg/dl; Unsaturated Iron Binding 260 ug/dL (112-347)
[2020-03-17] MEDS: propofol 1,000 MG/100 ML INJ 35.4 MG IV ×2 (20:03→22:01)
[2020-03-17 20:17] LABS: Troponin 5 6HR 15.53 ng/L (0-10)
[2020-03-17 20:20] LABS: Troponin 5 6HR Delta -2.47 ng/L (0-12)
[2020-03-17] MEDS: budesonide 0.5 mg/2 mL Neb INHALATION (20:27)
[2020-03-17] MEDS: carvedilol 12.5 mg Tablet PO (21:30)
[2020-03-17] MEDS: atorvastatin 40 mg Tablet 80 MG PO (21:30)
[2020-03-18] VITALS (85 sets, daily range): BP systolic 114–168; BP diastolic 55–87; PULSE 64–112; RESP 16–36; TEMP 36.6–37.8; O2SAT 86–98
[2020-03-18] MEDS: propofol 1,000 MG/100 ML INJ 35.4 MG IV (01:00)
[2020-03-18] MEDS: D5-NS 0.45% + KCL 20 mEq 20 MEQ/1,000 ML BAG 75 MEQ IV ×2 (01:01→17:46)
[2020-03-18] MEDS: dexmedetomidine 400 MCG in sodium chloride 0.9% (100 ml) 100 ML 11.5 MCG IV (01:06)
[2020-03-18] MEDS: piperacillin-tazobactam 3.375 GM in sodium chloride 0.9% (plus) 50 ML IV ×3 (03:00→18:13)
[2020-03-18] MEDS: propofol 1,000 MG/100 ML INJ 44.2 MG IV ×3 (03:55→06:05)
[2020-03-18 05:10] LABS: Basophils # 0.1 10^3/uL (0.0-0.1); Basophils % 0.3 %; Eosinophils # 0.1 10^3/uL (0.0-0.8); Eosinophils % 0.6 %; Hematocrit 27.7 % (37.0-47.0); Hemoglobin 8.2 g/dL (11.5-15.3); Lymphocytes # 2.4 10^3/uL (0.8-4.8); Lymphocytes % 13.6 %; Mean Corpuscular HGB Conc 29.6 g/dL (30.0-36.0); Mean Corpuscular Hemoglobin 24.7 pg (28.0-34.0); Mean Corpuscular Volume 83.4 fL (81-99); Monocytes # 1.5 10^3/uL (0.2-0.9); Monocytes % 8.2 %; Neutrophils # 13.78 10^3/uL (1.8-7.7); Neutrophils % 76.6 %; Nucleated Red Blood Cells % 0 %; Platelet Count 241 10^3/cmm (130-400); Red Blood Count 3.32 10^6/uL (4.1-5.3); Red Cell Distribution Width 20.9 % (12.1-15.1)
[2020-03-18 05:31] LABS: Fibrinogen 472 mg/dL (174-498)
[2020-03-18 05:33] LABS: D Dimer 0.72 ug/mIFEU (0-0.59)
[2020-03-18 05:42] LABS: Alanine Aminotransferase 50 U/L (0-33); Albumin Level 2.5 g/dL (3.5-5.2); Alkaline Phosphatase 86 IU/L (35-105); Blood Urea Nitrogen 9 mg/dL (8-23); Calcium 7.2 mg/dL (8.5-10.5); Carbon Dioxide 22 mmol/L (22-29); Chloride 111 mmol/L (98-107); Globulin 2.6 g/dL (1.3-4.6); Glomerular Filtration Rate 125.9 mL/min (90-130); Glucose 154 mg/dL (65-115); Osmolality Calculated 296 mOsm/kg (285-295); Sodium 142 mmol/L (136-145); Total Bilirubin 0.2 mg/dL (0.15-1.2); Total Protein 5.1 g/dL (6.6-8.7)
[2020-03-18] MEDS: enoxaparin 40 mg/0.4 mL Syringe SUBCUT (05:48)
[2020-03-18 05:51] LABS: Anion Gap 12.9 (5-19); Aspartate Amino Transferase 68 U/L (0-32); Potassium 3.9 mmol/L (3.5-5.1)
--- NOTE | 2020-03-18 06:00 | XRR_ITS ---
PROCEDURE INFORMATION: Exam: XR Chest, 1 View Exam date and time: 03/18/2020 4:39 AM Age: 59 years old Clinical indication: Condition or disease; Other: Covid; Prior surgery; Surgery type: Gb, stent; Patient HX: PT intubated TECHNIQUE: Imaging protocol: XR of the chest Views: 1 view. COMPARISON: CR XR chest 1V portable [id number] 03/17/2020 4:00 AM FINDINGS: Tubes, catheters and devices: Enteric tube extends to the abdomen. Endotracheal tube tip resides 1.8 cm above the floyd. Lungs: Diminutive inspiratory volume. Retrocardiac left lower lung stranding opacity remains. Patchy interstitial opacities bilaterally. Pleural space: Unremarkable. No pleural effusion. No pneumothorax. Heart/Mediastinum: Cardiomediastinal silhouette is similar and enlarged. Bones/joints: Degenerative change of the spine. Other findings: Prominent interstitial crowding. XR/XR chest 1V portable [id number] IMPRESSION: 1. Stranding interstitial opacities retrocardiac left lower lung. 2. Interstitial crowding with bilateral patchy interstitial opacities bilaterally.
[2020-03-18 06:05] LABS: Estmated Average Glucose 100; Hemoglobin A1C 5.1 % (4.0-6.0)
[2020-03-18] MEDS: dexmedetomidine 400 MCG in sodium chloride 0.9% (100 ml) 100 ML 30.7 MCG IV (06:39)
[2020-03-18] MEDS: ipratropium-albuterol 3 mL Neb INHALATION ×4 (07:31→19:30)
[2020-03-18] MEDS: budesonide 0.5 mg/2 mL Neb INHALATION ×2 (07:31→19:31)
[2020-03-18 07:33] LABS: C Reactive Protein 70.5 mg/L (0.0-4.9); Ferritin 51 ng/mL (15-150)
[2020-03-18 07:35] LABS: Creatine Phosphokinase 171 U/L (26-192); Lactate Dehydrogenase 471 U/L (135-214); NT Pro B Type Natriuretic Pept 194 pg/mL (0-125)
[2020-03-18] MEDS: zinc gluconate 50 mg Tablet PO (08:20)
[2020-03-18] MEDS: folic acid 1 mg Tablet PO (08:20)
[2020-03-18] MEDS: ascorbic acid 500 mg Tablet 1000 MG PO ×2 (08:20→17:46)
[2020-03-18] MEDS: multivitamin therapeutic Tablet 1 TAB PO (08:20)
[2020-03-18] MEDS: thiamine 100 mg Tablet PO (08:20)
[2020-03-18] MEDS: propofol 1,000 MG/100 ML INJ 26.5 MG IV (09:09)
[2020-03-18] MEDS: famotidine 20 mg/2 mL INJ IVP ×2 (10:01→22:00)
--- NOTE | 2020-03-18 10:17 | PC.OT ---
OT note: Pt intubated as of this morning. Will attempt later as able.
--- NOTE | 2020-03-18 10:25 | P.PN_ITS ---
Subjective Subjective: Interval history: PT in COVID Unit will see when out of COVID UNIT POD#1 ORIF ankle with I+D and closure of wound Vitals/I&O/Wt Last Vital Signs Temp 100.1 F H 03/18/20 08:00 Pulse 71 03/18/20 08:00 Resp 16 03/18/20 09:25 BP 137/76 03/18/20 08:00 Pulse Ox 97 03/18/20 08:00 03/17/20 03/18/20 03/18/20 22:59 06:59 14:59 Intake Total 2100.606 / 4415.634 1253.024 / 5668.658 841.142 / 841.142 Output Total 510 / 510 750 / 1260 200 / 200 Balance 1590.606 / 3905.634 503.024 / 4408.658 641.142 / 641.142 Weight last 48 hrs Weight 325 lb Physical Exam Urinary Catheter Management^: Jacobo: Cath Placed During This Visit: yes Reason for Continuing Indwelling Catheter: Accurate Measurement of Urinary Output in Critically Ill Patients Urinary Catheter Date of Insertion: 03/17/20 Urinary Catheter Time of Insertion: 03:38 Data : 03/18/20 04:20 03/18/20 04:20 Micro: Microbiology 03/17/20 15:00 Blood Culture - Preliminary Blood SPECIMEN COLLECTED A&P Additional A&P Information POD #1 ORIF LEft open ankle fracture NWB Left LE Ice and elevate left ankle Up with PT Attestations Medical Necessity Statement*: OPen ankle fracture Procedures Arterial Line Size (Gauge): 20 Coding Level of Care Code Acute Director Of Conservation for Michael Pool
--- NOTE | 2020-03-18 13:58 | PM.PN ---
Subjective Subjective: Interval history: The patient has self extubated her this morning after her sedation was decreased. Currently lethargic. Breathing okay. No acute distress. Denies any active complaints. Pain is well controlled. Medications: Reviewed: Yes Medication Review Details: Generic Name Dose Route Start Last Admin Trade Name Asael PRN Reason Stop Dose Admin Albuterol/Ipratrop ium 3 ml 03/17/20 12:00 03/18/20 11:27 Ipratropium-Albu terol 3 Ml Neb INHALATION 3 ml QID.RESPIRATORY S CH Administration Ascorbic Acid 1,000 mg 03/17/20 18:00 03/18/20 08:20 Ascorbic Acid 50 0 Mg Tablet PO 1,000 mg BID DANYEL Administration Atorvastatin Calci um 80 mg 03/17/20 22:00 03/17/20 21:30 Atorvastatin 40 Mg Tablet PO 80 mg BEDTIME@2200 DANYEL Administration Budesonide 0.5 mg 03/17/20 20:00 03/18/20 07:31 Budesonide 0.5 M g/2 Ml Neb INHALATION 0.5 mg BID.RESPIRATORY S CH Administration Carvedilol 12.5 mg 03/17/20 09:00 03/18/20 08:20 Carvedilol 12.5 Mg Tablet PO Not Given DANYEL Enoxaparin Sodium 40 mg 03/18/20 04:54 03/18/20 05:48 Enoxaparin 40 Mg /0.4 Ml Syringe SUBCUT 40 mg Q24H DANYEL Administration Famotidine 20 mg 03/17/20 10:00 03/18/20 10:01 Famotidine 20 Mg /2 Ml Inj IVP 20 mg Q12H DANYEL Administration Folic Acid 1 mg 03/17/20 09:00 03/18/20 08:20 Folic Acid 1 Mg Tablet PO 1 mg DAILY DANYEL Administration Propofol 1,000 mg in 100 m ls @ 0 mls/hr 03/17/20 04:30 03/18/20 11:36 Diprivan IV 0 mcg/kg/min .Q0M DANYEL 0 mls/hr Titration Protocol Per Protocol Potassium Chloride /Dextrose/Sod Cl 20 meq in 1,000 m ls @ 75 mls/hr 03/17/20 10:00 03/18/20 08:21 D5-Ns 0.45% + Compa l 20 Meq IV 75 mls/hr .[id number] DANYEL Infusion Norepinephrine Bit artrate 4 mg 254 mls @ 0 mls/h r 03/17/20 09:00 03/18/20 13:07 / Dextrose IV 0 mcg/min .Q0M DANYEL 0 mls/hr Titration Protocol Per Protocol Piperacillin Sod/T azobactam 50 mls @ 12.5 mls /hr 03/17/20 11:00 03/18/20 11:36 Sod 3.375 gm/ So dium Chloride IV Infused Q8H DANYEL Infusion Protocol Dexmedetomidine HC l 400 mcg/ 104 mls @ 0 mls/h r 03/17/20 09:45 03/18/20 13:07 Sodium Chloride IV Infused .Q0M DANYEL Titration Protocol Per Protocol Cefazolin Sodium 3 ,000 mg/ 100 mls @ 200 mls /hr 03/17/20 23:00 03/18/20 08:21 Sodium Chloride IV 03/18/20 15:29 Infused Q8H DANYEL Infusion Protocol Multivitamins Ther apeutic 1 tab 03/17/20 09:00 03/18/20 08:20 Multivitamin The rapeutic Tablet PO 1 tab DAILY DANYEL Administration Thiamine Mononitra te 100 mg 03/17/20 09:00 03/18/20 08:20 Thiamine 100 Mg Tablet PO 100 mg DAILY DANYEL Administration Zinc Gluconate 50 mg 03/17/20 11:00 03/18/20 08:20 Zinc Gluconate 5 0 Mg Tablet PO 50 mg DAILY DANYEL Administration Vitals/I&O/Wt Last Vital Signs Temp 99.8 F H 03/18/20 12:00 Pulse 98 03/18/20 12:00 Resp 28 H 03/18/20 12:02 BP 120/76 03/18/20 12:00 Pulse Ox 94 03/18/20 12:00 03/17/20 03/18/20 03/18/20 22:59 06:59 14:59 Intake Total 2100.606 / 4415.634 1253.024 / 5668.658 1260.374 / 1260.374 Output Total 510 / 510 750 / 1260 350 / 350 Balance 1590.606 / 3905.634 503.024 / 4408.658 910.374 / 910.374 Weight last 48 hrs Weight 147.418 kg Physical Exam Const: COMMON NORMALS: no acute distress and well nourished EXAM LIMITATIONS: altered mental status GENERAL APPEARANCE: comfortable and lethargic NUTRITIONAL APPEARANCE: obese ORIENTATION/CONSCIOUSNESS: Yes lethargic HENMT: MOUTH: moist mucous membranes abnormal Eye: COMMON NORMALS: Equal, round and reactive pupils present, EOMs intact bilaterally and conjunctivae normal CONJUNCTIVA: Yes conjunctivae normal PUPIL: Yes Equal, round and reactive pupils present Neck/C-Spine: COMMON NORMALS: full ROM and no JVD GENERAL: Yes trachea midline Resp: COMMON NORMALS: normal respiratory effort, No use of accessory muscles and clear to auscultation bilaterally AUSCULTATION: clear to auscultation bilaterally Cardio: COMMON NORMALS: no JVD, regular rate, S1 normal heart sound present and S2 normal heart sound present RATE: regular rate HEART SOUNDS: S1 normal heart sound present and S2 normal heart sound present GI: COMMON NORMALS: Soft to palpation and non-tender AUSCULTATION: Yes Hypoactive bowel sounds present PALPATION: Yes Soft to palpation Extremity: COMMON NORMALS: capillary refill normal, no clubbing, cyanosis or edema and no calf tenderness Neuro: SENSORIUM/ORIENTATION: Yes lethargic Skin: COMMON NORMALS: turgor normal GENERAL SKIN EXAM: turgor normal and dry skin Urinary Catheter Management^: Jacobo: Cath Placed During This Visit: yes Reason for Continuing Indwelling Catheter: Accurate Measurement of Urinary Output in Critically Ill Patients Urinary Catheter Date of Insertion: 03/17/20 Urinary Catheter Time of Insertion: 03:38 Data : 03/18/20 04:20 03/18/20 04:20 Micro: Microbiology 03/17/20 15:00 Blood Culture - Preliminary Blood SPECIMEN COLLECTED A&P Assessment and plan (1) Open trimalleolar fracture of left ankle: Status: Acute Qualifiers: Encounter type: initial encounter Open fracture type: open type III Qualified Code(s): S82.852C - Displaced trimalleolar fracture of left lower leg, initial encounter for open fracture type IIIA, IIIB, or IIIC (2) Acute on chronic respiratory failure with hypercapnia: Status: Acute (3) Alcohol intoxication: Status: Acute Qualifiers: Complication of substance-induced condition: with unspecified complication Qualified Code(s): F10.929 - Alcohol use, unspecified with intoxication, unspecified (4) COVID-19: Discharged on March 10 after receiving treatment with remdesivir, dexamethasone and convalescent plasma plus antibiotics, not yet out of isolation, unknown current clinical symptoms, had been discharged on oxygen Status: Acute (5) CAD (coronary artery disease): Has had 2 previous stents, echocardiogram done earlier this month showed an ejection fraction of 70%, normal diastolic function and no valvular abnormalities. For now hold off on aspirin. Continue statin through NG tube. Status: Chronic (6) Essential (primary) hypertension: Status: Chronic (7) Morbid obesity: Status: Chronic Additional A&P Information Open primary fracture of left ankle: Appreciate orthopedics recommendations. Patient to undergo OR today. Physical therapy, pain medications post extubation, anticoagulation as per orthopedics. Acute hypercapnic respiratory failure: Most likely secondary to pain medication in setting of morbid obesity, COPD and recent COVID-19 pneumonia: Patient on minimal ventilator setting for now. Keep intubated for now. Will do sedation vacation tomorrow morning post procedure. For now start patient on DuoNebs and budesonide. Vitamin C, zinc. Patient does not have any signs of infiltration at present on chest imaging. Check proBNP, procalcitonin, D-dimer, TSH, MRSA swab. For now start patient on Zosyn which will cover for aspiration, possible ventilator associated pneumonia. Aggressive pulmonary toilet. Alcohol intoxication: Alcohol level more than 200. Banana bag followed by D5 half NS at 75 cc/h. Folate, vitamin C, thiamine, multivitamin through NG tube. Patient currently sedated prior to intubation and transition over to Precedex and Ativan as per CIWA protocol. Hypertension: Keep mean arterial pressure more than 65 mmHg with goal blood pressure less than 140/90 mmHg. We will continue to monitor blood pressures. Full code. NPO. No pharmacological DVT prophylaxis as patient will be going to the OR. [place] left ankle bimalleolar fracture. Status post I&D of the wound and ORIF. Continue pain management. Will consider de-escalating antibiotics. PT OT recommendations per Ortho. EtOH. Currently stable. No evidence of withdrawals. Continue vitamins. Will start her on CIWA protocol. Acute hypercapnic respiratory failure secondary to EtOH intoxication. Has history of COPD and obstructive sleep apnea. Active smoker. Currently resolved. Stable respiratory reyna. We will continue close monitoring in ICU. Supplemental oxygen. Respiratory treatments as needed. Anemia probably secondary to #1 on top of probably chronic anemia. Continue close monitoring. Elevated LFTs probably secondary to EtOH. Continue monitoring. DVT prophylaxis. Lovenox. History of coronary artery disease. Will gradually resume her home medications. Will discuss with the surgeon regarding resuming Plavix. Hypertension. Currently well controlled. Continue current management. History of COVID-19 pneumonia. Probably bilateral infiltrates are residual. Lungs sounded okay to me during examination. We will closely monitor her in ICU settings. Attestations Medical Necessity Statement*: Patient still requires management in ICU with due to acute respiratory failure, just extubated. Procedures Arterial Line Size (Gauge): 20 Coding Level of Care Code Acute Senior Java Software Engineer for g Fwd Exam Comprehensive Diagnoses Open trimalleolar fracture of left ankle S82.852C Encounter type: initial encounter Open fracture type: open type III Acute on chronic respiratory failure with hypercapnia J96.22 Alcohol intoxication F10.929 Complication of substance-induced condition: with unspecified complication COVID-19 U07.1 CAD (coronary artery disease) I25.10 Essential (primary) hypertension I10 Morbid obesity E66.01
[2020-03-18] MEDS: HYDROmorphone 1 mg/mL INJ 1 mL IVP ×3 (14:15→22:41)
[2020-03-18] MEDS: HYDROcodone-acetaminophen 5-325 mg Tablet PO ×2 (16:29→21:25)
--- NOTE | 2020-03-18 18:45 | PC.NURSE ---
Received bedside report on patient from Titi RN. Assumed care at this time.
--- NOTE | 2020-03-18 19:00 | PC.NURSE ---
Repositioned patients left leg for comfort. Stated that she was having pain in her left ankle.
[2020-03-18] MEDS: atorvastatin 40 mg Tablet 80 MG PO (21:24)
[2020-03-18] MEDS: carvedilol 12.5 mg Tablet PO (21:24)
[2020-03-19] VITALS (42 sets, daily range): BP systolic 122–194; BP diastolic 68–99; PULSE 77–98; RESP 10–33; TEMP 36.7–37; O2SAT 87–100; BMI 55.7
[2020-03-19] MEDS: LORazepam 2 mg/mL INJ 1 mL 1 MG IV ×2 (00:30→02:06)
--- NOTE | 2020-03-19 00:30 | PC.NURSE ---
Patient very shaky, anxious, visually looking around and stated she was scared. CIWA done - 16. CIWA protocol calls for patient to be given Ativan 2mg IVP every 1 hour until below 10. Patient was given 2 mg Ativan and was verified and witnessed with Charge Nurse Fahad RN.
[2020-03-19] MEDS: HYDROmorphone 1 mg/mL INJ 1 mL IVP ×2 (02:07→06:26)
[2020-03-19] MEDS: piperacillin-tazobactam 3.375 GM in sodium chloride 0.9% (plus) 50 ML IV ×3 (02:08→20:09)
[2020-03-19] MEDS: D5-NS 0.45% + KCL 20 mEq 20 MEQ/1,000 ML BAG 75 MEQ IV (02:09)
[2020-03-19 04:49] LABS: Basophils % 0.2 %; Eosinophils # 0.2 10^3/uL (0.0-0.8); Hematocrit 26.4 % (37.0-47.0); Hemoglobin 7.7 g/dL (11.5-15.3); Lymphocytes # 1.7 10^3/uL (0.8-4.8); Lymphocytes % 11.2 %; Mean Corpuscular HGB Conc 29.2 g/dL (30.0-36.0); Mean Corpuscular Hemoglobin 24.7 pg (28.0-34.0); Mean Corpuscular Volume 84.6 fL (81-99); Monocytes # 0.9 10^3/uL (0.2-0.9); Monocytes % 5.6 %; Neutrophils # 12.54 10^3/uL (1.8-7.7); Neutrophils % 81.5 %; Nucleated Red Blood Cells % 0 %; Platelet Count 153 10^3/cmm (130-400); Red Blood Count 3.12 10^6/uL (4.1-5.3); Red Cell Distribution Width 20.5 % (12.1-15.1); White Blood Count 15.4 10^3/uL (4.0-10.0)
[2020-03-19] MEDS: enoxaparin 40 mg/0.4 mL Syringe SUBCUT (05:15)
[2020-03-19 05:25] LABS: D Dimer 1.12 ug/mIFEU (0-0.59)
[2020-03-19 05:27] LABS: Fibrinogen 590 mg/dL (174-498)
[2020-03-19 05:38] LABS: Anion Gap 9.4 (5-19); Blood Urea Nitrogen 6 mg/dL (8-23); Calcium 8.1 mg/dL (8.5-10.5); Carbon Dioxide 26 mmol/L (22-29); Chloride 109 mmol/L (98-107); Magnesium 1.9 mg/dL (1.7-2.3); Potassium 3.4 mmol/L (3.5-5.1); Sodium 141 mmol/L (136-145); Total Bilirubin 0.4 mg/dL (0.15-1.2); Total Protein 4.8 g/dL (6.6-8.7)
[2020-03-19 05:56] LABS: C Reactive Protein 179.8 mg/L (0.0-4.9); Ferritin 60 ng/mL (15-150); Lactate Dehydrogenase 233 U/L (135-214); NT Pro B Type Natriuretic Pept 1302 pg/mL (0-125)
[2020-03-19 06:01] LABS: Creatine Phosphokinase 404 U/L (26-192)
[2020-03-19 07:05] LABS: Alanine Aminotransferase 24 U/L (0-33); Albumin Level 2.3 g/dL (3.5-5.2); Alkaline Phosphatase 85 IU/L (35-105); Aspartate Amino Transferase 38 U/L (0-32); Globulin 2.5 g/dL (1.3-4.6); Glucose 104 mg/dL (65-115); Osmolality Calculated 290 mOsm/kg (285-295)
--- NOTE | 2020-03-19 08:04 | PM.PN ---
Subjective Subjective: Interval history: In COVID unit Vitals/I&O/Wt Last Vital Signs Temp 98.1 F 03/19/20 05:00 Pulse 95 03/19/20 06:30 Resp 21 H 03/19/20 06:30 BP 180/78 03/19/20 06:30 Pulse Ox 96 03/19/20 06:30 03/18/20 03/19/20 03/19/20 22:59 06:59 14:59 Intake Total 200 / 1904.124 868.75 / 2772.874 Output Total 300 / 650 1800 / 2450 Balance -100 / 1254.124 -931.25 / 322.874 Weight last 48 hrs Weight 325 lb Physical Exam Urinary Catheter Management^: Jacobo: Cath Placed During This Visit: yes Reason for Continuing Indwelling Catheter: Accurate Measurement of Urinary Output in Critically Ill Patients Urinary Catheter Date of Insertion: 03/17/20 Urinary Catheter Time of Insertion: 03:38 Data : 03/19/20 03:55 03/19/20 03:55 Micro: Microbiology 03/17/20 15:00 Blood Culture - Preliminary Blood NEGATIVE TO DATE A&P Additional A&P Information POD#2 ORIF open ankle OK to D/C antibiotics NWB LLE Ice and elevate left lower extremity Keep splint on at all times Should be on lovenox or DVT prophylaxis on d/c (at least ASA) OK to D/C from Orthopedic standpoint f/u ortho clinic 2-3 weeks Attestations Medical Necessity Statement*: OK to d/c from my standpoint Procedures Arterial Line Size (Gauge): 20 Coding Level of Care Code Acute Eyewear Manufacturing Supervisor for Michael Pool
[2020-03-19] MEDS: budesonide 0.5 mg/2 mL Neb INHALATION ×2 (08:40→19:42)
[2020-03-19] MEDS: ipratropium-albuterol 3 mL Neb INHALATION ×4 (08:40→19:42)
--- NOTE | 2020-03-19 09:22 | PC.RESP ---
SMOKING CESSATION AND PULMONARY REHAB INFORMATION SENT TO PATIENT.
[2020-03-19] MEDS: multivitamin therapeutic Tablet 1 TAB PO (09:32)
[2020-03-19] MEDS: thiamine 100 mg Tablet PO (09:32)
[2020-03-19] MEDS: HYDROcodone-acetaminophen 5-325 mg Tablet PO ×3 (09:32→21:31)
[2020-03-19] MEDS: ascorbic acid 500 mg Tablet 1000 MG PO ×2 (09:32→18:00)
[2020-03-19] MEDS: zinc gluconate 50 mg Tablet PO (09:32)
[2020-03-19] MEDS: folic acid 1 mg Tablet PO (09:32)
[2020-03-19] MEDS: famotidine 20 mg/2 mL INJ IVP ×2 (10:49→21:31)
[2020-03-19] MEDS: carvedilol 12.5 mg Tablet PO ×2 (10:51→21:10)
--- NOTE | 2020-03-19 14:38 | PM.PN ---
Subjective Subjective: Interval history: The patient was restless last night. Reportedly she had tremors and received 3 doses of lorazepam. Currently seems to be sedated. She is awake and responses are adequate but . denies any active complaint. The pain is well controlled. Medications: Reviewed: Yes Medication Review Details: Generic Name Dose Route Start Last Admin Trade Name Freq PRN Reason Stop Dose Admin Hydrocodone Bitart /Acetaminophen 1 - 2 tab 03/17/20 16:53 03/19/20 09:32 Hydrocodone-Acet aminophen 5-325 Mg Tablet PO 1 tab Q4H PRN Administration BREAKTHROUGH PAIN Albuterol/Ipratrop ium 3 ml 03/17/20 12:00 03/19/20 12:27 Ipratropium-Albu terol 3 Ml Neb INHALATION 3 ml QID.RESPIRATORY S CH Administration Ascorbic Acid 1,000 mg 03/17/20 18:00 03/19/20 09:32 Ascorbic Acid 50 0 Mg Tablet PO 1,000 mg BID DANYEL Administration Atorvastatin Calci um 80 mg 03/17/20 22:00 03/18/20 21:24 Atorvastatin 40 Mg Tablet PO 80 mg BEDTIME@2200 DANYEL Administration Budesonide 0.5 mg 03/17/20 20:00 03/19/20 08:40 Budesonide 0.5 M g/2 Ml Neb INHALATION 0.5 mg BID.RESPIRATORY S CH Administration Carvedilol 12.5 mg 03/17/20 09:00 03/19/20 10:51 Carvedilol 12.5 Mg Tablet PO 12.5 mg DANYEL Administration Enoxaparin Sodium 40 mg 03/18/20 04:54 03/19/20 05:15 Enoxaparin 40 Mg /0.4 Ml Syringe SUBCUT 40 mg Q24H DANYEL Administration Famotidine 20 mg 03/17/20 10:00 03/19/20 10:49 Famotidine 20 Mg /2 Ml Inj IVP 20 mg Q12H DANYEL Administration Folic Acid 1 mg 03/17/20 09:00 03/19/20 09:32 Folic Acid 1 Mg Tablet PO 1 mg DAILY DANYEL Administration Hydromorphone HCl 0.5 - 1 mg 03/17/20 16:53 03/19/20 06:26 Hydromorphone 1 Mg/Ml Inj 1 Ml IVP 1 mg Q3H PRN Administration Pain not managed by oral agent Propofol 1,000 mg in 100 m ls @ 0 mls/hr 03/17/20 04:30 03/18/20 11:36 Diprivan IV 0 mcg/kg/min .Q0M DANYEL 0 mls/hr Titration Protocol Per Protocol Norepinephrine Bit artrate 4 mg 254 mls @ 0 mls/h r 03/17/20 09:00 03/18/20 13:07 / Dextrose IV 0 mcg/min .Q0M DANYEL 0 mls/hr Titration Protocol Per Protocol Piperacillin Sod/T azobactam 50 mls @ 12.5 mls /hr 03/17/20 11:00 03/19/20 10:49 Sod 3.375 gm/ So dium Chloride IV 100 mls/hr Q8H DANYEL Administration Protocol Dexmedetomidine HC l 400 mcg/ 104 mls @ 0 mls/h r 03/17/20 09:45 03/18/20 13:07 Sodium Chloride IV Infused .Q0M DANYEL Titration Protocol Per Protocol Lorazepam 1 mg 03/18/20 14:48 03/19/20 02:06 Lorazepam 2 Mg/M l Inj 1 Ml IV 1 mg PROTOCOL PRN Administration ALCOWD Protocol Multivitamins Ther apeutic 1 tab 03/17/20 09:00 03/19/20 09:32 Multivitamin The rapeutic Tablet PO 1 tab DAILY DANYEL Administration Thiamine Mononitra te 100 mg 03/17/20 09:00 03/19/20 09:32 Thiamine 100 Mg Tablet PO 100 mg DAILY DANYEL Administration Zinc Gluconate 50 mg 03/17/20 11:00 03/19/20 09:32 Zinc Gluconate 5 0 Mg Tablet PO 50 mg DAILY DANYEL Administration Vitals/I&O/Wt Last Vital Signs Temp 98.1 F 03/19/20 05:00 Pulse 80 03/19/20 12:27 Resp 16 03/19/20 12:27 BP 190/95 03/19/20 11:00 Pulse Ox 97 03/19/20 12:27 03/18/20 03/19/20 03/19/20 22:59 06:59 14:59 Intake Total 200 / 1904.124 868.75 / 2772.874 50 / 50 Output Total 300 / 650 1800 / 2450 200 / 200 Balance -100 / 1254.124 -931.25 / 322.874 -150 / -150 Weight last 48 hrs Weight 147.418 kg Physical Exam Const: COMMON NORMALS: no acute distress and well nourished GENERAL APPEARANCE: comfortable and lethargic NUTRITIONAL APPEARANCE: obese ORIENTATION/CONSCIOUSNESS: Yes lethargic HENMT: MOUTH: moist mucous membranes abnormal Eye: COMMON NORMALS: Equal, round and reactive pupils present, EOMs intact bilaterally and conjunctivae normal CONJUNCTIVA: Yes conjunctivae normal PUPIL: Yes Equal, round and reactive pupils present Neck/C-Spine: COMMON NORMALS: full ROM and no JVD GENERAL: Yes trachea midline Resp: COMMON NORMALS: normal respiratory effort, No use of accessory muscles and clear to auscultation bilaterally AUSCULTATION: clear to auscultation bilaterally Cardio: COMMON NORMALS: no JVD, regular rate, S1 normal heart sound present and S2 normal heart sound present RATE: regular rate HEART SOUNDS: S1 normal heart sound present and S2 normal heart sound present GI: COMMON NORMALS: Soft to palpation and non-tender AUSCULTATION: Yes Hypoactive bowel sounds present PALPATION: Yes Soft to palpation Extremity: COMMON NORMALS: capillary refill normal, no clubbing, cyanosis or edema and no calf tenderness Neuro: SENSORIUM/ORIENTATION: Yes lethargic Skin: COMMON NORMALS: turgor normal GENERAL SKIN EXAM: turgor normal and dry skin Urinary Catheter Management^: Jacobo: Cath Placed During This Visit: yes Reason for Continuing Indwelling Catheter: Accurate Measurement of Urinary Output in Critically Ill Patients Urinary Catheter Date of Insertion: 03/17/20 Urinary Catheter Time of Insertion: 03:38 Data : 03/19/20 03:55 03/19/20 03:55 Micro: Microbiology 03/17/20 17:00 Sputum Culture - Preliminary Sputum - Endotracheal Tube Aspirate 03/17/20 15:00 Blood Culture - Preliminary Blood NEGATIVE TO DATE A&P Assessment and plan (1) Open trimalleolar fracture of left ankle: Status: Acute Qualifiers: Encounter type: initial encounter Open fracture type: open type III Qualified Code(s): S82.852C - Displaced trimalleolar fracture of left lower leg, initial encounter for open fracture type IIIA, IIIB, or IIIC (2) Acute on chronic respiratory failure with hypercapnia: Status: Acute (3) Alcohol intoxication: Status: Acute Qualifiers: Complication of substance-induced condition: with unspecified complication Qualified Code(s): F10.929 - Alcohol use, unspecified with intoxication, unspecified (4) COVID-19: Discharged on March 10 after receiving treatment with remdesivir, dexamethasone and convalescent plasma plus antibiotics, not yet out of isolation, unknown current clinical symptoms, had been discharged on oxygen Status: Acute (5) CAD (coronary artery disease): Has had 2 previous stents, echocardiogram done earlier this month showed an ejection fraction of 70%, normal diastolic function and no valvular abnormalities. For now hold off on aspirin. Continue statin through NG tube. Status: Chronic (6) Essential (primary) hypertension: Status: Chronic (7) Morbid obesity: Status: Chronic Additional A&P Information Open primary fracture of left ankle: Appreciate orthopedics recommendations. Patient to undergo OR today. Physical therapy, pain medications post extubation, anticoagulation as per orthopedics. Acute hypercapnic respiratory failure: Most likely secondary to pain medication in setting of morbid obesity, COPD and recent COVID-19 pneumonia: Patient on minimal ventilator setting for now. Keep intubated for now. Will do sedation vacation tomorrow morning post procedure. For now start patient on DuoNebs and budesonide. Vitamin C, zinc. Patient does not have any signs of infiltration at present on chest imaging. Check proBNP, procalcitonin, D-dimer, TSH, MRSA swab. For now start patient on Zosyn which will cover for aspiration, possible ventilator associated pneumonia. Aggressive pulmonary toilet. Alcohol intoxication: Alcohol level more than 200. Banana bag followed by D5 half NS at 75 cc/h. Folate, vitamin C, thiamine, multivitamin through NG tube. Patient currently sedated prior to intubation and transition over to Precedex and Ativan as per CIWA protocol. Hypertension: Keep mean arterial pressure more than 65 mmHg with goal blood pressure less than 140/90 mmHg. We will continue to monitor blood pressures. Full code. NPO. No pharmacological DVT prophylaxis as patient will be going to the OR. [place] left ankle bimalleolar fracture. Status post I&D of the wound and ORIF. Continue pain management. Will consider de-escalating antibiotics. PT OT recommendations per Ortho. EtOH. Withdrawal symptoms last night. Received lorazepam. Currently lethargic. Continue vitamins and CIWA protocol. Acute hypercapnic respiratory failure secondary to EtOH intoxication. Has history of COPD and obstructive sleep apnea. Active smoker. Currently resolved. Stable respiratory reyna. We will continue close monitoring in ICU. Supplemental oxygen. Respiratory treatments as needed. Anemia probably secondary to #1 on top of probably chronic anemia. Continue close monitoring. Elevated LFTs probably secondary to EtOH. Continue monitoring. DVT prophylaxis. Lovenox. History of coronary artery disease. Will gradually resume her home medications. Will discuss with the surgeon regarding resuming Plavix. Hypertension. Currently well controlled. Continue current management. History of COVID-19 pneumonia. Probably bilateral infiltrates are residual. Lungs sounded okay to me during examination. We will closely monitor her in ICU settings. Attestations Medical Necessity Statement*: Plan of care requires inpatient hospitalization Procedures Arterial Line Size (Gauge): 20 Coding Level of Care Code Acute Chimney Supervisor Brick for Michael Spauldingd Diagnoses Open trimalleolar fracture of left ankle S82.852C Encounter type: initial encounter Open fracture type: open type III Acute on chronic respiratory failure with hypercapnia J96.22 Alcohol intoxication F10.929 Complication of substance-induced condition: with unspecified complication COVID-19 U07.1 CAD (coronary artery disease) I25.10 Essential (primary) hypertension I10 Morbid obesity E66.01
[2020-03-19] MEDS: potassium chloride oral liq 20 mEq/15 mL UDC 40 MEQ PO (16:30)
[2020-03-19] MEDS: docusate sodium 100 mg Capsule PO (18:01)
--- NOTE | 2020-03-19 18:45 | PC.NURSE ---
Received bedside report on patient from Titi RN. Assumed care a this time.
[2020-03-19] MEDS: HYDROmorphone 1 mg/mL INJ 1 mL 0.25 MG IVP (20:10)
[2020-03-19] MEDS: atorvastatin 40 mg Tablet 80 MG PO (22:00)
[2020-03-20] VITALS (42 sets, daily range): BP systolic 91–148; BP diastolic 54–114; PULSE 71–104; RESP 12–24; TEMP 36.6–36.9; O2SAT 94–100; BMI 55.7
[2020-03-20] MEDS: piperacillin-tazobactam 3.375 GM in sodium chloride 0.9% (plus) 50 ML IV (03:30)
[2020-03-20 04:20] LABS: Basophils % 0.3 %; Eosinophils # 0.2 10^3/uL (0.0-0.8); Eosinophils % 1.4 %; Hematocrit 26.6 % (37.0-47.0); Hemoglobin 7.7 g/dL (11.5-15.3); Lymphocytes # 1.5 10^3/uL (0.8-4.8); Lymphocytes % 9.8 %; Mean Corpuscular HGB Conc 28.9 g/dL (30.0-36.0); Mean Corpuscular Hemoglobin 24.6 pg (28.0-34.0); Monocytes # 0.9 10^3/uL (0.2-0.9); Monocytes % 5.9 %; Neutrophils # 12.11 10^3/uL (1.8-7.7); Neutrophils % 82.2 %; Nucleated Red Blood Cells % 0 %; Platelet Count 176 10^3/cmm (130-400); Red Blood Count 3.13 10^6/uL (4.1-5.3); Red Cell Distribution Width 20.4 % (12.1-15.1); White Blood Count 14.7 10^3/uL (4.0-10.0)
[2020-03-20 04:35] LABS: Fibrinogen 814 mg/dL (174-498)
[2020-03-20 04:39] LABS: D Dimer 0.74 ug/mIFEU (0-0.59)
[2020-03-20 05:12] LABS: Albumin Level 2.3 g/dL (3.5-5.2); Anion Gap 8.5 (5-19); Blood Urea Nitrogen 6 mg/dL (8-23); C Reactive Protein 145.7 mg/L (0.0-4.9); Calcium 8.5 mg/dL (8.5-10.5); Carbon Dioxide 28 mmol/L (22-29); Chloride 106 mmol/L (98-107); Creatine Phosphokinase 146 U/L (26-192); Ferritin 69 ng/mL (15-150); Glomerular Filtration Rate 125.9 mL/min (90-130); Glucose 95 mg/dL (65-115); NT Pro B Type Natriuretic Pept 980 pg/mL (0-125); Phosphorus 1.8 mg/dL (2.5-4.5); Potassium 3.5 mmol/L (3.5-5.1); Sodium 139 mmol/L (136-145)
[2020-03-20 05:16] LABS: Lactate Dehydrogenase 204 U/L (135-214)
--- NOTE | 2020-03-20 06:00 | XR_ITS ---
WS: [id number] PORTABLE CHEST HISTORY: covid COMPARISON: 03/18/2020 Mild stranding posterior to the LEFT heart. Overall improved aeration along the LEFT mediastinum appe ar less atelectasis as compared to the prior study. No pleural effusion or pneumothorax. Cardiac size: Mildly enlarged cardiac silhouette. Mediastinum/Aorta: Mild atherosclerosis aorta. No osseous abnormality seen. XR/XR chest 1V portable [id number] IMPRESSION: 1. Improving atelectasis along the LEFT heart and mediastinal border. There is minimal persistent atelectasis posterior to LEFT heart. 2. Mild cardiomegaly.
[2020-03-20] MEDS: multivitamin therapeutic Tablet 1 TAB PO (08:24)
[2020-03-20] MEDS: thiamine 100 mg Tablet PO (08:24)
[2020-03-20] MEDS: famotidine 20 mg Tablet PO ×2 (08:24→18:07)
[2020-03-20] MEDS: folic acid 1 mg Tablet PO (08:24)
[2020-03-20] MEDS: zinc gluconate 50 mg Tablet PO (08:24)
[2020-03-20] MEDS: HYDROcodone-acetaminophen 5-325 mg Tablet PO ×3 (08:25→18:07)
[2020-03-20] MEDS: ascorbic acid 500 mg Tablet 1000 MG PO ×2 (08:25→18:07)
[2020-03-20] MEDS: clopidogrel 75 mg Tablet PO (08:25)
[2020-03-20] MEDS: budesonide 0.5 mg/2 mL Neb INHALATION ×2 (08:28→20:36)
[2020-03-20] MEDS: ipratropium-albuterol 3 mL Neb INHALATION ×4 (08:28→20:36)
[2020-03-20] MEDS: carvedilol 12.5 mg Tablet PO ×2 (08:29→20:38)
--- NOTE | 2020-03-20 11:38 | PC.SOCIAL ---
Pg 2 IMM Explained to pt Pg 2 IMM, via phone. No questions voiced. Signed, dated, & timed a copy to be scanned into chart.
[2020-03-20] MEDS: potassium chloride ER 10 mEq Tablet 20 MEQ PO (12:00)
--- NOTE | 2020-03-20 13:52 | P.PN_ITS ---
Subjective Subjective: Interval history: The patient is doing well. Slept well. No confusion or agitation. The pain is well controlled. No shortness of breath or cough. No chest pain. No nausea or vomiting. No diarrhea. Medications: Reviewed: Yes Medication Review Details: Generic Name Dose Route Start Last Admin Trade Name Chachoq PRN Reason Stop Dose Admin Hydrocodone Bitart /Acetaminophen 1 - 2 tab 03/17/20 16:53 03/20/20 12:55 Hydrocodone-Acet aminophen 5-325 Mg Tablet PO 1 tab Q4H PRN Administration BREAKTHROUGH PAIN Albuterol/Ipratrop ium 3 ml 03/17/20 12:00 03/20/20 11:42 Ipratropium-Albu terol 3 Ml Neb INHALATION 3 ml QID.RESPIRATORY S CH Administration Ascorbic Acid 1,000 mg 03/17/20 18:00 03/20/20 08:25 Ascorbic Acid 50 0 Mg Tablet PO 1,000 mg BID DANYEL Administration Atorvastatin Calci um 80 mg 03/17/20 22:00 03/19/20 22:00 Atorvastatin 40 Mg Tablet PO 80 mg BEDTIME@2200 DANYEL Administration Budesonide 0.5 mg 03/17/20 20:00 03/20/20 08:28 Budesonide 0.5 M g/2 Ml Neb INHALATION 0.5 mg BID.RESPIRATORY S CH Administration Carvedilol 12.5 mg 03/17/20 09:00 03/20/20 08:29 Carvedilol 12.5 Mg Tablet PO 12.5 mg DANYEL Administration Clopidogrel Bisulf ate 75 mg 03/20/20 09:00 03/20/20 08:25 Clopidogrel 75 M g Tablet PO 75 mg DAILY DANYEL Administration Docusate Sodium 100 mg 03/17/20 09:42 03/19/20 18:01 Docusate Sodium 100 Mg Capsule PO 100 mg BID PRN Administration CONSTIPATION Famotidine 20 mg 03/20/20 09:00 03/20/20 08:24 Famotidine 20 Mg Tablet PO 20 mg BID DANYEL Administration Folic Acid 1 mg 03/17/20 09:00 03/20/20 08:24 Folic Acid 1 Mg Tablet PO 1 mg DAILY DANYEL Administration Hydromorphone HCl 0.25 mg 03/19/20 14:40 03/19/20 20:10 Hydromorphone 1 Mg/Ml Inj 1 Ml IVP 0.25 mg Q3H PRN Administration Pain not managed by oral agent Propofol 1,000 mg in 100 m ls @ 0 mls/hr 03/17/20 04:30 03/18/20 11:36 Diprivan IV 0 mcg/kg/min .Q0M DANYEL 0 mls/hr Titration Protocol Per Protocol Norepinephrine Bit artrate 4 mg 254 mls @ 0 mls/h r 03/17/20 09:00 03/18/20 13:07 / Dextrose IV 0 mcg/min .Q0M DANYEL 0 mls/hr Titration Protocol Per Protocol Dexmedetomidine HC l 400 mcg/ 104 mls @ 0 mls/h r 03/17/20 09:45 03/18/20 13:07 Sodium Chloride IV Infused .Q0M DANYEL Titration Protocol Per Protocol Lorazepam 1 mg 03/18/20 14:48 03/19/20 02:06 Lorazepam 2 Mg/M l Inj 1 Ml IV 1 mg PROTOCOL PRN Administration ALCOWD Protocol Multivitamins Ther apeutic 1 tab 03/17/20 09:00 03/20/20 08:24 Multivitamin The rapeutic Tablet PO 1 tab DAILY DANYEL Administration Thiamine Mononitra te 100 mg 03/17/20 09:00 03/20/20 08:24 Thiamine 100 Mg Tablet PO 100 mg DAILY DANYEL Administration Zinc Gluconate 50 mg 03/17/20 11:00 03/20/20 08:24 Zinc Gluconate 5 0 Mg Tablet PO 50 mg DAILY DANYEL Administration Vitals/I&O/Wt Last Vital Signs Temp 97.8 F 03/20/20 05:16 Pulse 76 03/20/20 11:51 Resp 22 H 03/20/20 11:43 BP 124/74 03/20/20 06:00 Pulse Ox 97 03/20/20 11:43 03/19/20 03/20/20 03/20/20 22:59 06:59 14:59 Intake Total 1385 / 1885 175 / 2060 Output Total 300 / 700 650 / 1350 Balance 1085 / 1185 -475 / 710 Weight last 48 hrs Weight 147.418 kg Weight 147.418 kg Physical Exam Narrative: EXAM NARRATIVE: Awake alert oriented. No acute distress. Mood and affect are appropriate. Responses are adequate. Skin is warm and dry. Moist extremities. Neck supple. No JVD Lungs clear. No respiratory distress Heart S1, S2, regular Abdomen soft, obese, nontender, bowel sounds are present Extremities no cyanosis. No calf tenderness. Normal capillary refill. Neuro exam is nonfocal. Normal speech. Const: COMMON NORMALS: no acute distress and well nourished GENERAL APPEARANCE: comfortable NUTRITIONAL APPEARANCE: obese HENMT: MOUTH: moist mucous membranes abnormal Eye: COMMON NORMALS: Equal, round and reactive pupils present, EOMs intact bilaterally and conjunctivae normal CONJUNCTIVA: Yes conjunctivae normal PUPIL: Yes Equal, round and reactive pupils present Neck/C-Spine: COMMON NORMALS: full ROM and no JVD GENERAL: Yes trachea midline Resp: COMMON NORMALS: normal respiratory effort, No use of accessory muscles and clear to auscultation bilaterally AUSCULTATION: clear to auscultation b ilaterally Cardio: COMMON NORMALS: no JVD, regular rate, S1 normal heart sound present and S2 normal heart sound present RATE: regular rate HEART SOUNDS: S1 normal heart sound present and S2 normal heart sound present GI: COMMON NORMALS: Soft to palpation and non-tender AUSCULTATION: Yes Hypoactive bowel sounds present PALPATION: Yes Soft to palpation Extremity: COMMON NORMALS: capillary refill normal, no clubbing, cyanosis or edema and no calf tenderness Skin: COMMON NORMALS: turgor normal GENERAL SKIN EXAM: turgor normal and dry skin Urinary Catheter Management^: Jacobo: Cath Placed During This Visit: yes Reason for Continuing Indwelling Catheter: Accurate Measurement of Urinary Output in Critically Ill Patients Urinary Catheter Date of Insertion: 03/17/20 Urinary Catheter Time of Insertion: 03:38 Data : 03/20/20 03:15 03/20/20 03:15 Micro: Microbiology 03/17/20 17:00 Sputum Culture - Final Sputum - Endotracheal Tube Aspirate A&P Assessment and plan (1) Open trimalleolar fracture of left ankle: Status: Acute Qualifiers: Encounter type: initial encounter Open fracture type: open type III Qualified Code(s): S82.852C - Displaced trimalleolar fracture of left lower leg, initial encounter for open fracture type IIIA, IIIB, or IIIC (2) Acute on chronic respiratory failure with hypercapnia: Status: Acute (3) Alcohol intoxication: Status: Acute Qualifiers: Complication of substance-induced condition: with unspecified complication Qualified Code(s): F10.929 - Alcohol use, unspecified with intoxication, unspecified (4) COVID-19: Discharged on March 10 after receiving treatment with remdesivir, dexamethasone and convalescent plasma plus antibiotics, not yet out of isolation, unknown current clinical symptoms, had been discharged on oxygen Status: Acute (5) CAD (coronary artery disease): Has had 2 previous stents, echocardiogram done earlier this month showed an ejection fraction of 70%, normal diastolic function and no valvular abnormalities. For now hold off on aspirin. Continue statin through NG tube. Status: Chronic (6) Essential (primary) hypertension: Status: Chronic (7) Morbid obesity: Status: Chronic Additional A&P Information Open primary fracture of left ankle: Appreciate orthopedics recommendations. Patient to undergo OR today. Physical therapy, pain medications post extubation, anticoagulation as per orthopedics. Acute hypercapnic respiratory failure: Most likely secondary to pain medication in setting of morbid obesity, COPD and recent COVID-19 pneumonia: Patient on minimal ventilator setting for now. Keep intubated for now. Will do sedation vacation tomorrow morning post procedure. For now start patient on DuoNebs and budesonide. Vitamin C, zinc. Patient does not have any signs of infiltration at present on chest imaging. Check proBNP, procalcitonin, D-dimer, TSH, MRSA swab. For now start patient on Zosyn which will cover for aspiration, possible ventilator associated pneumonia. Aggressive pulmonary toilet. Alcohol intoxication: Alcohol level more than 200. Banana bag followed by D5 half NS at 75 cc/h. Folate, vitamin C, thiamine, multivitamin through NG tube. Patient currently sedated prior to intubation and transition over to Precedex and Ativan as per CIWA protocol. Hypertension: Keep mean arterial pressure more than 65 mmHg with goal blood pressure less than 140/90 mmHg. We will continue to monitor blood pressures. Full code. NPO. No pharmacological DVT prophylaxis as patient will be going to the OR. [place] left ankle bimalleolar fracture. Status post I&D of the wound and ORIF. Continue pain management. Discussed with Dr. Freeman yesterday. No need for antibiotics. Stopping Zosyn today. Okay to resume Plavix. However he prefers no Lovenox with Plavix to avoid bleeding complications. No need for wound care. The extremity is in a splint. The patient will need a follow-up visit with him in 2 weeks. Cleared for discharge from his standpoint. EtOH. No evidence of withdrawals. Stable. Continue vitamins and CIWA protocol. Acute hypercapnic respiratory failure secondary to EtOH intoxication. Has history of COPD and obstructive sleep apnea. Active smoker. Currently resolved. Stable respiratory reyna. Anemia probably secondary to #1 on top of probably chronic anemia. Continue close monitoring. Elevated LFTs probably secondary to EtOH. Continue monitoring. DVT prophylaxis. Lovenox. History of coronary artery disease. Home medications are resumed including Plavix. Hypertension. Currently well controlled. Continue current management. History of COVID-19 pneumonia. Probably bilateral infiltrates are residual. Lungs sounded okay to me during examination. We will closely monitor. Disposition. halfway facility placement is pending. The plan of care was discussed with the patient. She verbalized understanding and agreement. Discussed with the multidisciplinary team. Attestations Medical Necessity Statement*: Pending placement Procedures Arterial Line Size (Gauge): 20 Coding Level of Care Code Acute Change Person for [facility] Diagnoses Open trimalleolar fracture of left ankle S82.852C Encounter type: initial encounter Open fracture type: open type III Acute on chronic respiratory failure with hypercapnia J96.22 Alcohol intoxication F10.929 Complication of substance-induced condition: with unspecified complication COVID-19 U07.1 CAD (coronary artery disease) I25.10 Essential (primary) hypertension I10 Morbid obesity E66.01
[2020-03-20] MEDS: phosphorus 250 mg Tablet PO (18:07)
[2020-03-20] MEDS: atorvastatin 40 mg Tablet 80 MG PO (20:38)
[2020-03-20] MEDS: HYDROmorphone 1 mg/mL INJ 1 mL IVP (20:46)
--- NOTE | 2020-03-20 21:00 | PC.NURSE ---
Patient c/o severe pain in left leg/hip/ankle. PO Hydrocodone given before change of shift did not aid in controlling reported pain levels. Ice packs applied, with repositioning and non-pharmacological measures attempted on RN's part to no avail. MD formstone fitter notified, and new order was given for Hydromorphone IVP to be given on PRN basis. Patient resting more comfortably after pain medication admin.
[2020-03-21] VITALS (34 sets, daily range): BP systolic 90–140; BP diastolic 51–84; PULSE 66–95; RESP 14–36; TEMP 36.3–37.1; O2SAT 92–100
[2020-03-21] MEDS: LORazepam 2 mg/mL INJ 1 mL 1 MG IV ×2 (00:22→20:49)
--- NOTE | 2020-03-21 00:37 | PC.NURSE ---
Patient found to have taken off Bipap mask, and c/o severe anxiety . CIWA that was completed, gave score of 15. 1mg Ativan IVP given, with waste witnessed by fawn Murillo RN.
[2020-03-21] MEDS: ipratropium-albuterol 3 mL Neb INHALATION ×4 (08:42→20:16)
[2020-03-21] MEDS: budesonide 0.5 mg/2 mL Neb INHALATION ×2 (08:42→20:16)
[2020-03-21] MEDS: zinc gluconate 50 mg Tablet PO (09:52)
[2020-03-21] MEDS: ascorbic acid 500 mg Tablet 1000 MG PO ×2 (09:52→18:25)
[2020-03-21] MEDS: clopidogrel 75 mg Tablet PO (09:52)
[2020-03-21] MEDS: famotidine 20 mg Tablet PO ×2 (09:52→18:26)
[2020-03-21] MEDS: folic acid 1 mg Tablet PO (09:52)
[2020-03-21] MEDS: phosphorus 250 mg Tablet PO (09:52)
[2020-03-21] MEDS: carvedilol 12.5 mg Tablet PO ×2 (09:53→20:49)
[2020-03-21] MEDS: thiamine 100 mg Tablet PO (09:53)
[2020-03-21] MEDS: multivitamin therapeutic Tablet 1 TAB PO (09:53)
[2020-03-21] MEDS: HYDROcodone-acetaminophen 5-325 mg Tablet PO (11:10)
--- NOTE | 2020-03-21 11:25 | PM.PN ---
Subjective Subjective: Interval history: The patient is doing well. Slept well. No confusion or agitation. The pain is well controlled. No shortness of breath or cough. No chest pain. No nausea or vomiting. No diarrhea. Vitals/I&O/Wt Last Vital Signs Temp 98.5 F 03/22/20 11:24 Pulse 79 03/22/20 11:24 Resp 19 H 03/22/20 11:24 BP 146/102 03/22/20 11:24 Pulse Ox 98 03/22/20 11:24 03/21/20 03/22/20 03/22/20 22:59 06:59 14:59 Intake Total 340 / 700 200 / 900 120 / 120 Output Total 925 / 925 325 / 1250 Balance -585 / -225 -125 / -350 120 / 120 Weight last 48 hrs Weight 147.425 g Physical Exam Narrative: EXAM NARRATIVE: Awake alert oriented. No acute distress. Mood and affect are appropriate. Responses are adequate. Skin is warm and dry. Moist extremities. Neck supple. No JVD Lungs clear. No respiratory distress Heart S1, S2, regular Abdomen soft, obese, nontender, bowel sounds are present Extremities no cyanosis. No calf tenderness. Normal capillary refill. Neuro exam is nonfocal. Normal speech. Const: COMMON NORMALS: no acute distress and well nourished EXAM LIMITATIONS: altered mental status GENERAL APPEARANCE: comfortable NUTRITIONAL APPEARANCE: obese HENMT: MOUTH: moist mucous membranes abnormal Eye: COMMON NORMALS: Equal, round and reactive pupils present, EOMs intact bilaterally and conjunctivae normal CONJUNCTIVA: Yes conjunctivae normal PUPIL: Yes Equal, round and reactive pupils present Neck/C-Spine: COMMON NORMALS: full ROM and no JVD GENERAL: Yes trachea midline Resp: COMMON NORMALS: normal respiratory effort, No use of accessory muscles and clear to auscultation bilaterally AUSCULTATION: clear to auscultation bilaterally Cardio: COMMON NORMALS: no JVD, regular rate, S1 normal heart sound present and S2 normal heart sound present RATE: regular rate HEART SOUNDS: S1 normal heart sound present and S2 normal heart sound present GI: COMMON NORMALS: Soft to palpation and non-tender AUSCULTATION: Yes Hypoactive bowel sounds present PALPATION: Yes Soft to palpation Extremity: COMMON NORMALS: capillary refill normal, no clubbing, cyanosis or edema and no calf tenderness Skin: COMMON NORMALS: turgor normal GENERAL SKIN EXAM: turgor normal and dry skin Urinary Catheter Management^: Jacobo: Cath Placed During This Visit: yes Reason for Continuing Indwelling Catheter: Accurate Measurement of Urinary Output in Critically Ill Patients Urinary Catheter Date of Insertion: 03/17/20 Urinary Catheter Time of Insertion: 03:38 Data : 03/22/20 03:25 03/22/20 03:25 A&P Assessment and plan (1) Open trimalleolar fracture of left ankle: Status: Acute Qualifiers: Encounter type: initial encounter Open fracture type: open type III Qualified Code(s): S82.852C - Displaced trimalleolar fracture of left lower leg, initial encounter for open fracture type IIIA, IIIB, or IIIC (2) Acute on chronic respiratory failure with hypercapnia: Status: Acute (3) Alcohol intoxication: Status: Acute Qualifiers: Complication of substance-induced condition: with unspecified complication Qualified Code(s): F10.929 - Alcohol use, unspecified with intoxication, unspecified (4) COVID-19: Discharged on March 10 after receiving treatment with remdesivir, dexamethasone and convalescent plasma plus antibiotics, not yet out of isolation, unknown current clinical symptoms, had been discharged on oxygen Status: Acute (5) CAD (coronary artery disease): Has had 2 previous stents, echocardiogram done earlier this month showed an ejection fraction of 70%, normal diastolic function and no valvular abnormalities. For now hold off on aspirin. Continue statin through NG tube. Status: Chronic (6) Essential (primary) hypertension: Status: Chronic (7) Morbid obesity: Status: Chronic Additional A&P Information Open primary fracture of left ankle: Appreciate orthopedics recommendations. Patient to undergo OR today. Physical therapy, pain medications post extubation, anticoagulation as per orthopedics. Acute hypercapnic respiratory failure: Most likely secondary to pain medication in setting of morbid obesity, COPD and recent COVID-19 pneumonia: Patient on minimal ventilator setting for now. Keep intubated for now. Will do sedation vacation tomorrow morning post procedure. For now start patient on DuoNebs and budesonide. Vitamin C, zinc. Patient does not have any signs of infiltration at present on chest imaging. Check proBNP, procalcitonin, D-dimer, TSH, MRSA swab. For now start patient on Zosyn which will cover for aspiration, possible ventilator associated pneumonia. Aggressive pulmonary toilet. Alcohol intoxication: Alcohol level more than 200. Banana bag followed by D5 half NS at 75 cc/h. Folate, vitamin C, thiamine, multivitamin through NG tube. Patient currently sedated prior to intubation and transition over to Precedex and Ativan as per CIWA protocol. Hypertension: Keep mean arterial pressure more than 65 mmHg with goal blood pressure less than 140/90 mmHg. We will continue to monitor blood pressures. Full code. NPO. No pharmacological DVT prophylaxis as patient will be going to the OR. [place] Left ankle bimalleolar fracture. Status post I&D of the wound and ORIF. Continue pain management with tramadol. Discussed with Dr. Freeman: No need for antibiotics. Zosyn is discontinued. Okay to resume Plavix. However he prefers no Lovenox with Plavix to avoid bleeding complications. No need for wound care. The extremity is in a splint. The patient will need a follow-up visit with him in 2 weeks. Cleared for discharge from his standpoint. Currently waiting for placement to residential facility. EtOH. No evidence of withdrawals. Stable. Continue vitamins and CIWA protocol. Acute hypercapnic respiratory failure secondary to EtOH intoxication. Has history of COPD and obstructive sleep apnea. Active smoker. Currently resolved. Stable respiratory reyna. Anemia probably secondary to #1 on top of probably chronic anemia. Continue close monitoring. Elevated LFTs probably secondary to EtOH. Continue monitoring. DVT prophylaxis. Plavix. History of coronary artery disease. Home medications are resumed including Plavix. Hypertension. Currently well controlled. Continue current management. History of COVID-19 pneumonia. Probably bilateral infiltrates are residual. Lungs sounded okay to me during examination. We will closely monitor. Disposition. correction facility placement is pending. The plan of care was discussed with the patient. She verbalized understanding and agreement. Discussed with the multidisciplinary team. Attestations Medical Necessity Statement*: Pending placement to residential facility. 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
[2020-03-21 14:12] LABS: Basophils % 0.3 %; Eosinophils # 0.2 10^3/uL (0.0-0.8); Eosinophils % 1.7 %; Hematocrit 28.2 % (37.0-47.0); Hemoglobin 8.9 g/dL (11.5-15.3); Lymphocytes # 1.6 10^3/uL (0.8-4.8); Lymphocytes % 17.6 %; Mean Corpuscular HGB Conc 31.6 g/dL (30.0-36.0); Mean Corpuscular Hemoglobin 25.2 pg (28.0-34.0); Mean Corpuscular Volume 79.9 fL (81-99); Mean Platelet Volume 10.9 fL (7.4-10.4); Monocytes # 0.6 10^3/uL (0.2-0.9); Monocytes % 6.8 %; Neutrophils % 72.9 %; Nucleated Red Blood Cells % 0 %; Platelet Count 179 10^3/cmm (130-400); Red Blood Count 3.53 10^6/uL (4.1-5.3); Red Cell Distribution Width 21.3 % (12.1-15.1); White Blood Count 8.8 10^3/uL (4.0-10.0)
[2020-03-21 14:51] LABS: Albumin Level 2.4 g/dL (3.5-5.2); Anion Gap 13.5 (5-19); Blood Urea Nitrogen 8 mg/dL (8-23); Calcium 8.8 mg/dL (8.5-10.5); Carbon Dioxide 25 mmol/L (22-29); Chloride 107 mmol/L (98-107); Creatinine Clr Calc Pharmacy 0.3471; Glomerular Filtration Rate 162.8 mL/min (90-130); Glucose 115 mg/dL (65-115); Phosphorus 2.1 mg/dL (2.5-4.5); Potassium 3.5 mmol/L (3.5-5.1); Sodium 142 mmol/L (136-145)
[2020-03-21 15:02] LABS: Slide Review Slide Review Perform
[2020-03-21] MEDS: HYDROmorphone 1 mg/mL INJ 1 mL IVP (19:53)
[2020-03-21] MEDS: atorvastatin 40 mg Tablet 80 MG PO (20:48)
[2020-03-22] VITALS (34 sets, daily range): BP systolic 101–157; BP diastolic 73–102; PULSE 53–101; RESP 12–27; TEMP 36.8–36.9; O2SAT 91–100
[2020-03-22] MEDS: LORazepam 2 mg/mL INJ 1 mL 1 MG IV (03:32)
[2020-03-22 04:21] LABS: Basophils % 0.4 %; Eosinophils # 0.2 10^3/uL (0.0-0.8); Eosinophils % 2.2 %; Hematocrit 25.2 % (37.0-47.0); Hemoglobin 7.6 g/dL (11.5-15.3); Lymphocytes # 1.7 10^3/uL (0.8-4.8); Mean Corpuscular HGB Conc 30.2 g/dL (30.0-36.0); Mean Corpuscular Hemoglobin 25.2 pg (28.0-34.0); Mean Corpuscular Volume 83.4 fL (81-99); Mean Platelet Volume 10.5 fL (7.4-10.4); Monocytes # 0.8 10^3/uL (0.2-0.9); Monocytes % 10.6 %; Neutrophils # 4.52 10^3/uL (1.8-7.7); Neutrophils % 63.2 %; Nucleated Red Blood Cells % 0 %; Platelet Count 187 10^3/cmm (130-400); Red Blood Count 3.02 10^6/uL (4.1-5.3); White Blood Count 7.2 10^3/uL (4.0-10.0)
[2020-03-22 04:53] LABS: Albumin Level 2.4 g/dL (3.5-5.2); Anion Gap 10.1 (5-19); Blood Urea Nitrogen 6 mg/dL (8-23); Calcium 8.5 mg/dL (8.5-10.5); Carbon Dioxide 28 mmol/L (22-29); Chloride 105 mmol/L (98-107); Creatinine Clr Calc Pharmacy 0.3471; Glomerular Filtration Rate 162.8 mL/min (90-130); Glucose 84 mg/dL (65-115); Phosphorus 3.1 mg/dL (2.5-4.5); Potassium 3.1 mmol/L (3.5-5.1); Sodium 140 mmol/L (136-145)
[2020-03-22 04:58] LABS: Magnesium 1.8 mg/dL (1.7-2.3)
--- NOTE | 2020-03-22 06:00 | XR_ITS ---
WS: [id number] Portable AP supine chest, 03/22/2020 Clinical Data: covid Comparison: Portable chest, 03/20/2020 Findings: No nodules, masses or effusions are seen. The heart is enlarged. The pulmonary vascularity is not increased. No pneumonia or pneumothorax is seen. The aortic arch and descending aorta are tort uous. Monitor leads are on the chest wall. XR/XR chest 1V portable [id number] Impression: Cardiomegaly and atherosclerosis.
[2020-03-22] MEDS: HYDROmorphone 1 mg/mL INJ 1 mL IVP (07:52)
[2020-03-22] MEDS: ipratropium-albuterol 3 mL Neb INHALATION ×4 (08:17→19:22)
[2020-03-22] MEDS: budesonide 0.5 mg/2 mL Neb INHALATION ×2 (08:17→19:22)
[2020-03-22] MEDS: multivitamin therapeutic Tablet 1 TAB PO (09:29)
[2020-03-22] MEDS: famotidine 20 mg Tablet PO ×2 (09:29→17:49)
[2020-03-22] MEDS: ascorbic acid 500 mg Tablet 1000 MG PO ×2 (09:29→17:49)
[2020-03-22] MEDS: clopidogrel 75 mg Tablet PO (09:29)
[2020-03-22] MEDS: thiamine 100 mg Tablet PO (09:30)
[2020-03-22] MEDS: zinc gluconate 50 mg Tablet PO (09:30)
[2020-03-22] MEDS: folic acid 1 mg Tablet PO (09:30)
[2020-03-22] MEDS: carvedilol 12.5 mg Tablet PO ×2 (09:32→21:10)
--- NOTE | 2020-03-22 11:28 | PM.PN ---
Subjective Subjective: Interval history: The patient is doing well. Slept well. No confusion or agitation. The pain is well controlled. No shortness of breath or cough. No chest pain. No nausea or vomiting. No diarrhea. Medications: Reviewed: Yes Medication Review Details: Generic Name Dose Route Start Last Admin Trade Name Chachoq PRN Reason Stop Dose Admin Hydrocodone Bitart /Acetaminophen 1 - 2 tab 03/17/20 16:53 03/20/20 12:55 Hydrocodone-Acet aminophen 5-325 Mg Tablet PO 1 tab Q4H PRN Administration BREAKTHROUGH PAIN Albuterol/Ipratrop ium 3 ml 03/17/20 12:00 03/20/20 11:42 Ipratropium-Albu terol 3 Ml Neb INHALATION 3 ml QID.RESPIRATORY S CH Administration Ascorbic Acid 1,000 mg 03/17/20 18:00 03/20/20 08:25 Ascorbic Acid 50 0 Mg Tablet PO 1,000 mg BID DANYEL Administration Atorvastatin Calci um 80 mg 03/17/20 22:00 03/19/20 22:00 Atorvastatin 40 Mg Tablet PO 80 mg BEDTIME@2200 DANYEL Administration Budesonide 0.5 mg 03/17/20 20:00 03/20/20 08:28 Budesonide 0.5 M g/2 Ml Neb INHALATION 0.5 mg BID.RESPIRATORY S CH Administration Carvedilol 12.5 mg 03/17/20 09:00 03/20/20 08:29 Carvedilol 12.5 Mg Tablet PO 12.5 mg DANYEL Administration Clopidogrel Bisulf ate 75 mg 03/20/20 09:00 03/20/20 08:25 Clopidogrel 75 M g Tablet PO 75 mg DAILY DANYEL Administration Docusate Sodium 100 mg 03/17/20 09:42 03/19/20 18:01 Docusate Sodium 100 Mg Capsule PO 100 mg BID PRN Administration CONSTIPATION Famotidine 20 mg 03/20/20 09:00 03/20/20 08:24 Famotidine 20 Mg Tablet PO 20 mg BID DANYEL Administration Folic Acid 1 mg 03/17/20 09:00 03/20/20 08:24 Folic Acid 1 Mg Tablet PO 1 mg DAILY DANYEL Administration Hydromorphone HCl 0.25 mg 03/19/20 14:40 03/19/20 20:10 Hydromorphone 1 Mg/Ml Inj 1 Ml IVP 0.25 mg Q3H PRN Administration Pain not managed by oral agent Propofol 1,000 mg in 100 m ls @ 0 mls/hr 03/17/20 04:30 03/18/20 11:36 Diprivan IV 0 mcg/kg/min .Q0M DANYEL 0 mls/hr Titration Protocol Per Protocol Norepinephrine Bit artrate 4 mg 254 mls @ 0 mls/h r 03/17/20 09:00 03/18/20 13:07 / Dextrose IV 0 mcg/min .Q0M DANYEL 0 mls/hr Titration Protocol Per Protocol Dexmedetomidine HC l 400 mcg/ 104 mls @ 0 mls/h r 03/17/20 09:45 03/18/20 13:07 Sodium Chloride IV Infused .Q0M DANYEL Titration Protocol Per Protocol Lorazepam 1 mg 03/18/20 14:48 03/19/20 02:06 Lorazepam 2 Mg/M l Inj 1 Ml IV 1 mg PROTOCOL PRN Administration ALCOWD Protocol Multivitamins Ther apeutic 1 tab 03/17/20 09:00 03/20/20 08:24 Multivitamin The rapeutic Tablet PO 1 tab DAILY DANYEL Administration Thiamine Mononitra te 100 mg 03/17/20 09:00 03/20/20 08:24 Thiamine 100 Mg Tablet PO 100 mg DAILY DANYEL Administration Zinc Gluconate 50 mg 03/17/20 11:00 03/20/20 08:24 Zinc Gluconate 5 0 Mg Tablet PO 50 mg DAILY DANYEL Administration Vitals/I&O/Wt Last Vital Signs Temp 98.5 F 03/22/20 11:24 Pulse 79 03/22/20 11:24 Resp 19 H 03/22/20 11:24 BP 146/102 03/22/20 11:24 Pulse Ox 98 03/22/20 11:24 03/21/20 03/22/20 03/22/20 22:59 06:59 14:59 Intake Total 340 / 700 200 / 900 120 / 120 Output Total 925 / 925 325 / 1250 Balance -585 / -225 -125 / -350 120 / 120 Weight last 48 hrs Weight 147.425 g Physical Exam Narrative: EXAM NARRATIVE: Awake alert oriented. No acute distress. Mood and affect are appropriate. Responses are adequate. Skin is warm and dry. Moist extremities. Neck supple. No JVD Lungs clear. No respiratory distress Heart S1, S2, regular Abdomen soft, obese, nontender, bowel sounds are present Extremities no cyanosis. No calf tenderness. Normal capillary refill. Neuro exam is nonfocal. Normal speech. Const: COMMON NORMALS: no acute distress and well nourished EXAM LIMITATIONS: altered mental status GENERAL APPEARANCE: comfortable NUTRITIONAL APPEARANCE: obese HENMT: MOUTH: moist mucous membranes abnormal Eye: COMMON NORMALS: Equal, round and reactive pupils present, EOMs intact bilaterally and conjunctivae normal CONJUNCTIVA: Yes conjunctivae normal PUPIL: Yes Equal, round and reactive pupils present Neck/C-Spine: COMMON NORMALS: full ROM and no JVD GENERAL: Yes trachea midline Resp: COMMON NORMALS: normal respiratory effort, No use of accessory muscles and clear to auscultation bilaterally AUSCULTATION: clear to auscultation bilaterally Cardio: COMMON NORMALS: no JVD, regular rate, S1 normal heart sound present and S2 normal heart sound present RATE: regular rate HEART SOUNDS: S1 normal heart sound present and S2 normal heart sound present GI: COMMON NORMALS: Soft to palpation and non-tender AUSCULTATION: Yes Hypoactive bowel sounds present PALPATION: Yes Soft to palpation Extremity: COMMON NORMALS: capillary refill normal, no clubbing, cyanosis or edema and no calf tenderness Skin: COMMON NORMALS: turgor normal GENERAL SKIN EXAM: turgor normal and dry skin Urinary Catheter Management^: Jacobo: Cath Placed During This Visit: yes Reason for Continuing Indwelling Catheter: Accurate Measurement of Urinary Output in Critically Ill Patients Urinary Catheter Date of Insertion: 03/17/20 Urinary Catheter Time of Insertion: 03:38 Data : 03/22/20 03:25 03/22/20 03:25 A&P Assessment and plan (1) Open trimalleolar fracture of left ankle: Status: Acute Qualifiers: Encounter type: initial encounter Open fracture type: open type III Qualified Code(s): S82.852C - Displaced trimalleolar fracture of left lower leg, initial encounter for open fracture type IIIA, IIIB, or IIIC (2) Acute on chronic respiratory failure with hypercapnia: Status: Acute (3) Alcohol intoxication: Status: Acute Qualifiers: Complication of substance-induced condition: with unspecified complication Qualified Code(s): F10.929 - Alcohol use, unspecified with intoxication, unspecified (4) COVID-19: Discharged on March 10 after receiving treatment with remdesivir, dexamethasone and convalescent plasma plus antibiotics, not yet out of isolation, unknown current clinical symptoms, had been discharged on oxygen Status: Acute (5) CAD (coronary artery disease): Has had 2 previous stents, echocardiogram done earlier this month showed an ejection fraction of 70%, normal diastolic function and no valvular abnormalities. For now hold off on aspirin. Continue statin through NG tube. Status: Chronic (6) Essential (primary) hypertension: Status: Chronic (7) Morbid obesity: Status: Chronic Additional A&P Information Open primary fracture of left ankle: Appreciate orthopedics recommendations. Patient to undergo OR today. Physical therapy, pain medications post extubation, anticoagulation as per orthopedics. Acute hypercapnic respiratory failure: Most likely secondary to pain medication in setting of morbid obesity, COPD and recent COVID-19 pneumonia: Patient on minimal ventilator setting for now. Keep intubated for now. Will do sedation vacation tomorrow morning post procedure. For now start patient on DuoNebs and budesonide. Vitamin C, zinc. Patient does not have any signs of infiltration at present on chest imaging. Check proBNP, procalcitonin, D-dimer, TSH, MRSA swab. For now start patient on Zosyn which will cover for aspiration, possible ventilator associated pneumonia. Aggressive pulmonary toilet. Alcohol intoxication: Alcohol level more than 200. Banana bag followed by D5 half NS at 75 cc/h. Folate, vitamin C, thiamine, multivitamin through NG tube. Patient currently sedated prior to intubation and transition over to Precedex and Ativan as per [facility] protocol. Hypertension: Keep mean arterial pressure more than 65 mmHg with goal blood pressure less than 140/90 mmHg. We will continue to monitor blood pressures. Full code. NPO. No pharmacological DVT prophylaxis as patient will be going to the OR. [place] Left ankle bimalleolar fracture. Status post I&D of the wound and ORIF. Continue pain management with tramadol. Discussed with Dr. Freeman: No need for antibiotics. Zosyn is discontinued. Okay to resume Plavix. However he prefers no Lovenox with Plavix to avoid bleeding complications. No need for wound care. The extremity is in a splint. The patient will need a follow-up visit with him in 2 weeks. Cleared for discharge from his standpoint. Currently waiting for placement to long term facility. EtOH. No evidence of withdrawals. Stable. Continue vitamins and CIWA protocol. Acute hypercapnic respiratory failure secondary to EtOH intoxication. Has history of COPD and obstructive sleep apnea. Active smoker. Currently resolved. Stable respiratory reyna. Anemia probably secondary to #1 on top of probably chronic anemia. Continue close monitoring. Elevated LFTs probably secondary to EtOH. Continue monitoring. DVT prophylaxis. Plavix. History of coronary artery disease. Home medications are resumed including Plavix. Hypertension. Currently well controlled. Continue current management. History of COVID-19 pneumonia. Probably bilateral infiltrates are residual. Lungs sounded okay to me during examination. We will closely monitor. Disposition. half-way facility placement is pending. The plan of care was discussed with the patient. She verbalized understanding and agreement. Discussed with the multidisciplinary team. Attestations Medical Necessity Statement*: Sending placement to long term facility. Procedures Arterial Line Size (Gauge): 20 Coding Level of Care Code Acute Referral Management Liaison for [facility] Fwd Diagnoses Open trimalleolar fracture of left ankle S82.852C Encounter type: initial encounter Open fracture type: open type III Acute on chronic respiratory failure with hypercapnia J96.22 Alcohol intoxication F10.929 Complication of substance-induced condition: with unspecified complication COVID-19 U07.1 CAD (coronary artery disease) I25.10 Essential (primary) hypertension I10 Morbid obesity E66.01
--- NOTE | 2020-03-22 12:12 | PC.SOCIAL ---
IMM Update Pg.2 of IMM updated and reviewed with patient over the phone, who verbalized understanding.
[2020-03-22] MEDS: TRAMadol 50 mg Tablet PO ×2 (13:11→21:09)
[2020-03-22] MEDS: potassium chloride ER 20 mEq Tablet 40 MEQ PO (13:11)
[2020-03-22] MEDS: magnesium oxide 400 mg tablet PO (17:50)
[2020-03-22] MEDS: atorvastatin 40 mg Tablet 80 MG PO (21:09)
[2020-03-23] VITALS (29 sets, daily range): BP systolic 108–157; BP diastolic 71–86; PULSE 66–93; RESP 16–24; TEMP 36.7–36.8; O2SAT 92–99
[2020-03-23] MEDS: LORazepam 2 mg/mL INJ 1 mL 1 MG IVP ×2 (03:45→23:49)
[2020-03-23] MEDS: TRAMadol 50 mg Tablet PO ×4 (03:45→23:49)
[2020-03-23] MEDS: ipratropium-albuterol 3 mL Neb INHALATION ×3 (08:15→15:29)
[2020-03-23] MEDS: budesonide 0.5 mg/2 mL Neb INHALATION (08:15)
[2020-03-23] MEDS: acetaminophen 325 mg Tablet 650 MG PO ×3 (09:16→23:49)
[2020-03-23] MEDS: folic acid 1 mg Tablet PO (09:17)
[2020-03-23] MEDS: thiamine 100 mg Tablet PO (09:17)
[2020-03-23] MEDS: famotidine 20 mg Tablet PO ×2 (09:17→17:51)
[2020-03-23] MEDS: ascorbic acid 500 mg Tablet 1000 MG PO ×2 (09:17→17:51)
[2020-03-23] MEDS: clopidogrel 75 mg Tablet PO (09:17)
[2020-03-23] MEDS: zinc gluconate 50 mg Tablet PO (09:17)
[2020-03-23] MEDS: magnesium oxide 400 mg tablet PO (09:17)
[2020-03-23] MEDS: multivitamin therapeutic Tablet 1 TAB PO (09:18)
[2020-03-23] MEDS: ondansetron 2 mg/ML SDV 2 mL 4 MG IVP (09:21)
[2020-03-23] MEDS: carvedilol 12.5 mg Tablet PO ×2 (09:21→21:16)
--- NOTE | 2020-03-23 13:42 | PM.PN ---
Subjective Subjective: Interval history: No significant changes or events. Awake alert and oriented. No acute distress. Denies any active complaints. Medications: Reviewed: Yes Medication Review Details: Generic Name Dose Route Start Last Admin Trade Name Asael PRN Reason Stop Dose Admin Acetaminophen 650 mg 03/17/20 08:45 03/23/20 09:16 Acetaminophen 32 5 Mg Tablet PO 650 mg Q6H PRN Administration MILD PAIN Albuterol/Ipratrop ium 3 ml 03/17/20 12:00 03/23/20 11:19 Ipratropium-Albu terol 3 Ml Neb INHALATION 3 ml QID.RESPIRATORY S CH Administration Ascorbic Acid 1,000 mg 03/17/20 18:00 03/23/20 09:17 Ascorbic Acid 50 0 Mg Tablet PO 1,000 mg BID DANYEL Administration Atorvastatin Calci um 80 mg 03/17/20 22:00 03/22/20 21:09 Atorvastatin 40 Mg Tablet PO 80 mg BEDTIME@2200 DANYEL Administration Budesonide 0.5 mg 03/17/20 20:00 03/23/20 08:15 Budesonide 0.5 M g/2 Ml Neb INHALATION 0.5 mg BID.RESPIRATORY S CH Administration Carvedilol 12.5 mg 03/17/20 09:00 03/23/20 09:21 Carvedilol 12.5 Mg Tablet PO 12.5 mg DANYEL Administration Clopidogrel Bisulf ate 75 mg 03/20/20 09:00 03/23/20 09:17 Clopidogrel 75 M g Tablet PO 75 mg DAILY DANYEL Administration Docusate Sodium 100 mg 03/17/20 09:42 03/19/20 18:01 Docusate Sodium 100 Mg Capsule PO 100 mg BID PRN Administration CONSTIPATION Famotidine 20 mg 03/20/20 09:00 03/23/20 09:17 Famotidine 20 Mg Tablet PO 20 mg BID DANYEL Administration Folic Acid 1 mg 03/17/20 09:00 03/23/20 09:17 Folic Acid 1 Mg Tablet PO 1 mg DAILY DANYEL Administration Lorazepam 1 mg 03/23/20 03:38 03/23/20 03:45 Lorazepam 2 Mg/M l Inj 1 Ml IVP 1 mg Q4H PRN Administration ANXIETY Multivitamins Ther apeutic 1 tab 03/17/20 09:00 03/23/20 09:18 Multivitamin The rapeutic Tablet PO 1 tab DAILY DANYEL Administration Ondansetron HCl 4 mg 03/17/20 08:45 03/23/20 09:21 Ondansetron 2 Mg /Ml Sdv 2 Ml IVP 4 mg Q6H PRN Administration NAUSEA AND VOMITI NG Thiamine Mononitra te 100 mg 03/17/20 09:00 03/23/20 09:17 Thiamine 100 Mg Tablet PO 100 mg DAILY DANYEL Administration Tramadol HCl 50 mg 03/22/20 11:24 03/23/20 09:17 Tramadol 50 Mg T ablet PO 50 mg Q6H PRN Administration MODERATE PAIN Zinc Gluconate 50 mg 03/17/20 11:00 03/23/20 09:17 Zinc Gluconate 5 0 Mg Tablet PO 50 mg DAILY DANYEL Administration Vitals/I&O/Wt Last Vital Signs Temp 98.2 F 03/23/20 04:00 Pulse 87 03/23/20 11:20 Resp 16 03/23/20 11:20 BP 112/85 03/23/20 07:00 Pulse Ox 95 03/23/20 11:20 03/22/20 03/23/20 03/23/20 22:59 06:59 14:59 Intake Total 120 / 360 556 / 556 Output Total 400 / 400 Balance 120 / 360 156 / 156 Weight last 48 hrs Weight 134.989 kg Physical Exam Narrative: EXAM NARRATIVE: Awake alert oriented. No acute distress. Mood and affect are appropriate. Responses are adequate. Skin is warm and dry. Moist extremities. Neck supple. No JVD Lungs clear. No respiratory distress Heart S1, S2, regular Abdomen soft, obese, nontender, bowel sounds are present Extremities no cyanosis. No calf tenderness. Normal capillary refill. Neuro exam is nonfocal. Normal speech. Const: COMMON NORMALS: no acute distress and well nourished EXAM LIMITATIONS: altered mental status GENERAL APPEARANCE: comfortable NUTRITIONAL APPEARANCE: obese HENMT: MOUTH: moist mucous membranes abnormal Eye: COMMON NORMALS: Equal, round and reactive pupils present, EOMs intact bilaterally and conjunctivae normal CONJUNCTIVA: Yes conjunctivae normal PUPIL: Yes Equal, round and reactive pupils present Neck/C-Spine: COMMON NORMALS: full ROM and no JVD GENERAL: Yes trachea midline Resp: COMMON NORMALS: normal respiratory effort, No use of accessory muscles and clear to auscultation bilaterally AUSCULTATION: clear to auscultation bilaterally Cardio: COMMON NORMALS: no JVD, regular rate, S1 normal heart sound present and S2 normal heart sound present RATE: regular rate HEART SOUNDS: S1 normal heart sound present and S2 normal heart sound present GI: COMMON NORMALS: Soft to palpation and non-tender AUSCULTATION: Yes Hypoactive bowel sounds present PALPATION: Yes Soft to palpation Extremity: COMMON NORMALS: capillary refill normal, no clubbing, cyanosis or edema and no calf tenderness Skin: COMMON NORMALS: turgor normal GENERAL SKIN EXAM: turgor normal and dry skin Urinary Catheter Management^: Jacobo: Cath Placed During This Visit: yes, but has since been removed by the nurse Reason for Continuing Indwelling Catheter: Decision to DC Catheter Urinary Catheter Date of Insertion: 03/17/20 Urinary Catheter Time of Insertion: 03:38 Date Urinary Catheter Removed: 03/22/20 Time Urinary Catheter Discontinued: 13:30 Data : 03/22/20 03:25 03/22/20 03:25 Micro: Microbiology 03/17/20 15:00 Blood Culture - Final Blood NO GROWTH AFTER 5 DAYS A&P Assessment and plan (1) Open trimalleolar fracture of left ankle: Status: Acute Qualifiers: Encounter type: initial encounter Open fracture type: open type III Qualified Code(s): S82.852C - Displaced trimalleolar fracture of left lower leg, initial encounter for open fracture type IIIA, IIIB, or IIIC (2) Acute on chronic respiratory failure with hypercapnia: Status: Acute (3) Alcohol intoxication: Status: Acute Qualifiers: Complication of substance-induced condition: with unspecified complication Qualified Code(s): F10.929 - Alcohol use, unspecified with intoxication, unspecified (4) COVID-19: Discharged on March 10 after receiving treatment with remdesivir, dexamethasone and convalescent plasma plus antibiotics, not yet out of isolation, unknown current clinical symptoms, had been discharged on oxygen Status: Acute (5) CAD (coronary artery disease): Has had 2 previous stents, echocardiogram done earlier this month showed an ejection fraction of 70%, normal diastolic function and no valvular abnormalities. For now hold off on aspirin. Continue statin through NG tube. Status: Chronic (6) Essential (primary) hypertension: Status: Chronic (7) Morbid obesity: Status: Chronic Additional A&P Information Open primary fracture of left ankle: Appreciate orthopedics recommendations. Patient to undergo OR today. Physical therapy, pain medications post extubation, anticoagulation as per orthopedics. Acute hypercapnic respiratory failure: Most likely secondary to pain medication in setting of morbid obesity, COPD and recent COVID-19 pneumonia: Patient on minimal ventilator setting for now. Keep intubated for now. Will do sedation vacation tomorrow morning post procedure. For now start patient on DuoNebs and budesonide. Vitamin C, zinc. Patient does not have any signs of infiltration at present on chest imaging. Check proBNP, procalcitonin, D-dimer, TSH, MRSA swab. For now start patient on Zosyn which will cover for aspiration, possible ventilator associated pneumonia. Aggressive pulmonary toilet. Alcohol intoxication: Alcohol level more than 200. Banana bag followed by D5 half NS at 75 cc/h. Folate, vitamin C, thiamine, multivitamin through NG tube. Patient currently sedated prior to intubation and transition over to Precedex and Ativan as per CIWA protocol. Hypertension: Keep mean arterial pressure more than 65 mmHg with goal blood pressure less than 140/90 mmHg. We will continue to monitor blood pressures. Full code. NPO. No pharmacological DVT prophylaxis as patient will be going to the OR. [place] Left ankle bimalleolar fracture. Status post I&D of the wound and ORIF. Continue pain management with tramadol. Discussed with Dr. Freeman: No need for antibiotics. Zosyn is discontinued. Okay to resume Plavix. However he prefers no Lovenox with Plavix to avoid bleeding complications. No need for wound care. The extremity is in a splint. The patient will need a follow-up visit with him in 2 weeks. Cleared for discharge from his standpoint. [facility]. EtOH. No evidence of withdrawals. Stable. Continue vitamins and CIWA protocol. Acute hypercapnic respiratory failure secondary to EtOH intoxication. Has history of COPD and obstructive sleep apnea. Active smoker. Currently resolved. Stable. Anemia probably secondary to #1 on top of probably chronic anemia. Stable. Elevated LFTs probably secondary to EtOH. Continue monitoring. DVT prophylaxis. Plavix. History of coronary artery disease. Home medications are resumed including Plavix. Hypertension. Currently well controlled. Continue current management. History of COVID-19 pneumonia. Probably bilateral infiltrates are residual. Normal oxygenation without supplemental oxygen. Disposition. care home facility placement is pending. The plan of care was discussed with the patient. She verbalized understanding and agreement. Discussed with the multidisciplinary team. Attestations Medical Necessity Statement*: Placement is pending. 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
[2020-03-23] MEDS: atorvastatin 40 mg Tablet 80 MG PO (21:16)
[2020-03-24] VITALS (28 sets, daily range): BP systolic 110–173; BP diastolic 65–107; PULSE 58–108; RESP 13–24; TEMP 36.6–36.8; O2SAT 90–100
--- NOTE | 2020-03-24 06:00 | PC.NURSE ---
Patient had total bed change during shift as well had disposable cindy changed three times during shift.
[2020-03-24 06:51] LABS: Albumin Level 2.6 g/dL (3.5-5.2); Blood Urea Nitrogen 6 mg/dL (8-23); Calcium 8.9 mg/dL (8.5-10.5); Carbon Dioxide 26 mmol/L (22-29); Chloride 107 mmol/L (98-107); Glomerular Filtration Rate 162.8 mL/min (90-130); Glucose 75 mg/dL (65-115); Magnesium 1.9 mg/dL (1.7-2.3); Phosphorus 4.1 mg/dL (2.5-4.5); Sodium 142 mmol/L (136-145)
[2020-03-24] MEDS: TRAMadol 50 mg Tablet PO ×2 (08:49→21:06)
[2020-03-24] MEDS: ascorbic acid 500 mg Tablet 1000 MG PO ×2 (08:52→18:19)
[2020-03-24] MEDS: zinc gluconate 50 mg Tablet PO (08:53)
[2020-03-24] MEDS: carvedilol 12.5 mg Tablet PO ×2 (08:53→22:56)
[2020-03-24] MEDS: folic acid 1 mg Tablet PO (08:53)
[2020-03-24] MEDS: clopidogrel 75 mg Tablet PO (08:53)
[2020-03-24] MEDS: famotidine 20 mg Tablet PO ×2 (08:53→18:20)
[2020-03-24] MEDS: multivitamin therapeutic Tablet 1 TAB PO (08:54)
[2020-03-24] MEDS: thiamine 100 mg Tablet PO (08:56)
--- NOTE | 2020-03-24 09:28 | PC.SOCIAL ---
IMM Update Pg.2 of IMM updated and reviewed with patient over the phone, verbalized understanding.
--- NOTE | 2020-03-24 12:22 | PC.NURSE ---
Patient report pain to the left knee and ankle. 08/08. Nurse offered pain medication but patient declined at this time. Repositioning is sufficient.
--- NOTE | 2020-03-24 13:22 | P.PN_ITS ---
Subjective Subjective: Interval history: No significant changes or events. Doing well. Awake alert and oriented. No acute distress. Denies any active complaints. Medications: Reviewed: Yes Vitals/I&O/Wt Last Vital Signs Temp 98.2 F 03/24/20 12:00 Pulse 76 03/24/20 12:00 Resp 24 H 03/24/20 12:00 BP 158/87 03/24/20 12:00 Pulse Ox 98 03/24/20 12:00 03/23/20 03/24/20 03/24/20 22:59 06:59 14:59 Intake Total 360 / 360 Balance 360 / 360 Weight last 48 hrs Weight 134.405 kg Weight 134.989 kg Physical Exam Narrative: EXAM NARRATIVE: Awake alert oriented. No acute distress. Mood and affect are appropriate. Responses are adequate. Skin is warm and dry. Moist extremities. Neck supple. No JVD Lungs clear. No respiratory distress Heart S1, S2, regular Abdomen soft, obese, nontender, bowel sounds are present Extremities no cyanosis. No calf tenderness. Normal capillary refill. Neuro exam is nonfocal. Normal speech. Const: COMMON NORMALS: no acute distress and well nourished EXAM LIMITATIONS: altered mental status GENERAL APPEARANCE: comfortable NUTRITIONAL APPEARANCE: obese HENMT: MOUTH: moist mucous membranes abnormal Eye: COMMON NORMALS: Equal, round and reactive pupils present, EOMs intact bilaterally and conjunctivae normal CONJUNCTIVA: Yes conjunctivae normal PUPIL: Yes Equal, round and reactive pupils present Neck/C-Spine: COMMON NORMALS: full ROM and no JVD GENERAL: Yes trachea mi dline Resp: COMMON NORMALS: normal respiratory effort, No use of accessory muscles and clear to auscultation bilaterally AUSCULTATION: clear to auscultation bilaterally Cardio: COMMON NORMALS: no JVD, regular rate, S1 normal heart sound present and S2 normal heart sound present RATE: regular rate HEART SOUNDS: S1 normal heart sound present and S2 normal heart sound present GI: COMMON NORMALS: Soft to palpation and non-tender AUSCULTATION: Yes Hypoactive bowel sounds present PALPATION: Yes Soft to palpation Extremity: COMMON NORMALS: capillary refill normal, no clubbing, cyanosis or edema and no calf tenderness Skin: COMMON NORMALS: turgor normal GENERAL SKIN EXAM: turgor normal and dry skin Urinary Catheter Management^: Jacobo: Cath Placed During This Visit: yes, but has since been removed by the nurse Reason for Continuing Indwelling Catheter: Decision to DC Catheter Urinary Catheter Date of Insertion: 03/17/20 Urinary Catheter Time of Insertion: 03:38 Date Urinary Catheter Removed: 03/22/20 Time Urinary Catheter Discontinued: 13:30 Data : 03/22/20 03:25 03/24/20 06:15 A&P Assessment and plan (1) Open trimalleolar fracture of left ankle: Status: Acute Qualifiers: Encounter type: initial encounter Open fracture type: open type III Qualified Code(s): S82.852C - Displaced trimalleolar fracture of left lower leg, initial encounter for open fracture type IIIA, IIIB, or IIIC (2) Acute on chronic respiratory failure with hypercapnia: Status: Acute (3) Alcohol intoxication: Status: Acute Qualifiers: Complication of substance-induced condition: with unspecified complication Qualified Code(s): F10.929 - Alcohol use, unspecified with intoxication, unspecified (4) COVID-19: Discharged on March 10 after receiving treatment with remdesivir, d examethasone and convalescent plasma plus antibiotics, not yet out of isolation, unknown current clinical symptoms, had been discharged on oxygen Status: Acute (5) CAD (coronary artery disease): Has had 2 previous stents, echocardiogram done earlier this month showed an ejection fraction of 70%, normal diastolic function and no valvular abnormalities. For now hold off on aspirin. Continue statin through NG tube. Status: Chronic (6) Essential (primary) hypertension: Status: Chronic (7) Morbid obesity: Status: Chronic Additional A&P Information Open primary fracture of left ankle: Appreciate orthopedics recommendations. Patient to undergo OR today. Physical therapy, pain medications post extubation, anticoagulation as per orthopedics. Acute hypercapnic respiratory failure: Most likely secondary to pain medication in setting of morbid obesity, COPD and recent COVID-19 pneumonia: Patient on minimal ventilator setting for now. Keep intubated for now. Will do sedation vacation tomorrow morning post procedure. For now start patient on DuoNebs and budesonide. Vitamin C, zinc. Patient does not have any signs of infiltration at present on chest imaging. Check proBNP, procalcitonin, D-dimer, TSH, MRSA swab. For now start patient on Zosyn which will cover for aspiration, possible ventilator associated pneumonia. Aggressive pulmonary toilet. Alcohol intoxication: Alcohol level more than 200. Banana bag followed by D5 half NS at 75 cc/h. Folate, vitamin C, thiamine, multivitamin through NG tube. Patient currently sedated prior to intubation and transition over to Precedex and Ativan as per CIWA protocol. Hypertension: Keep mean arterial pressure more than 65 mmHg with goal blood pressure less than 140/90 mmHg. We will continue to monitor blood pressures. Full code. NPO. No pharmacological DVT prophylaxis as patient will be going to the OR. [place] Left ankle bimalleolar fracture. Status post I&D of the wound and ORIF. Continue pain management with tramadol. Discussed with Dr. Freeman: No need for antibiotics. Zosyn is discontinued. Okay to resume Plavix. However he prefers no Lovenox with Plavix to avoid bleeding complications. No need for wound care. The extremity is in a splint. The patient will need a follow-up visit with him in 2 weeks. Cleared for discharge from his standpoint. Currently waiting for placement to halfway facility. EtOH. No evidence of withdrawals. Stable. Continue vitamins and CIWA protocol. Acute hypercapnic respiratory failure secondary to EtOH intoxication. Has history of COPD and obstructive sleep apnea. Active smoker. Currently resolve d. Stable. Anemia probably secondary to #1 on top of probably chronic anemia. Stable. Elevated LFTs probably secondary to EtOH. Continue monitoring. DVT prophylaxis. Plavix. History of coronary artery disease. Home medications are resumed including Plavix. Hypertension. Currently well controlled. Continue current management. History of COVID-19 pneumonia. Probably bilateral infiltrates are residual. Normal oxygenation without supplemental oxygen. Disposition. senior living facility placement is pending. The plan of care was discussed with the patient. She verbalized understanding and agreement. Discussed with the multidisciplinary team. Attestations Medical Necessity Statement*: Pending placement and insurance authorization. Procedures Arterial Line Size (Gauge): 20 Coding Level of Care Code Acute Senior Data Mining Analyst for [facility] Diagnoses Open trimalleolar fracture of left ankle S82.852C Encounter type: initial encounter Open fracture type: open type III Acute on chronic respiratory failure with hypercapnia J96.22 Alcohol intoxication F10.929 Complication of substance-induced condition: with unspecified complication COVID-19 U07.1 CAD (coronary artery disease) I25.10 Essential (primary) hypertension I10 Morbid obesity E66.01
[2020-03-24] MEDS: LORazepam 2 mg/mL INJ 1 mL 1 MG IVP ×2 (13:35→21:06)
[2020-03-24] MEDS: ipratropium-albuterol 3 mL Neb INHALATION ×2 (16:42→19:28)
[2020-03-24] MEDS: budesonide 0.5 mg/2 mL Neb INHALATION (19:28)
[2020-03-24] MEDS: atorvastatin 40 mg Tablet 80 MG PO (22:56)
[2020-03-25] VITALS (24 sets, daily range): BP systolic 126–159; BP diastolic 79–98; PULSE 64–96; RESP 16–22; TEMP 36.5–37.2; O2SAT 93–100
[2020-03-25] MEDS: ipratropium-albuterol 3 mL Neb INHALATION ×3 (08:48→20:40)
[2020-03-25] MEDS: budesonide 0.5 mg/2 mL Neb INHALATION ×2 (08:48→20:40)
[2020-03-25] MEDS: folic acid 1 mg Tablet PO (09:33)
[2020-03-25] MEDS: multivitamin therapeutic Tablet 1 TAB PO (09:33)
[2020-03-25] MEDS: clopidogrel 75 mg Tablet PO (09:33)
[2020-03-25] MEDS: zinc gluconate 50 mg Tablet PO (09:33)
[2020-03-25] MEDS: thiamine 100 mg Tablet PO (09:33)
[2020-03-25] MEDS: famotidine 20 mg Tablet PO ×2 (09:33→17:43)
[2020-03-25] MEDS: ascorbic acid 500 mg Tablet 1000 MG PO ×2 (09:33→17:43)
[2020-03-25] MEDS: carvedilol 12.5 mg Tablet PO ×2 (09:35→20:56)
[2020-03-25] MEDS: TRAMadol 50 mg Tablet PO ×2 (10:55→17:43)
[2020-03-25] MEDS: acetaminophen 325 mg Tablet 650 MG PO ×2 (13:49→20:56)
--- NOTE | 2020-03-25 15:02 | PM.PN ---
Subjective Subjective: Interval history: Currently patient was examined, she is having difficulty with her nonweightbearing status, she requires significant assistance to get up to the commode, she is worried about going home if she can go to halfway, Medications: Reviewed: Yes Medication Review Details: Generic Name Dose Route Start Last Admin Trade Name Chachoq PRN Reason Stop Dose Admin Acetaminophen 650 mg 03/17/20 08:45 03/23/20 09:16 Acetaminophen 32 5 Mg Tablet PO 650 mg Q6H PRN Administration MILD PAIN Albuterol/Ipratrop ium 3 ml 03/17/20 12:00 03/23/20 11:19 Ipratropium-Albu terol 3 Ml Neb INHALATION 3 ml QID.RESPIRATORY S CH Administration Ascorbic Acid 1,000 mg 03/17/20 18:00 03/23/20 09:17 Ascorbic Acid 50 0 Mg Tablet PO 1,000 mg BID DANYEL Administration Atorvastatin Calci um 80 mg 03/17/20 22:00 03/22/20 21:09 Atorvastatin 40 Mg Tablet PO 80 mg BEDTIME@2200 DANYEL Administration Budesonide 0.5 mg 03/17/20 20:00 03/23/20 08:15 Budesonide 0.5 M g/2 Ml Neb INHALATION 0.5 mg BID.RESPIRATORY S CH Administration Carvedilol 12.5 mg 03/17/20 09:00 03/23/20 09:21 Carvedilol 12.5 Mg Tablet PO 12.5 mg DANYEL Administration Clopidogrel Bisulf ate 75 mg 03/20/20 09:00 03/23/20 09:17 Clopidogrel 75 M g Tablet PO 75 mg DAILY DANYEL Administration Docusate Sodium 100 mg 03/17/20 09:42 03/19/20 18:01 Docusate Sodium 100 Mg Capsule PO 100 mg BID PRN Administration CONSTIPATION Famotidine 20 mg 03/20/20 09:00 03/23/20 09:17 Famotidine 20 Mg Tablet PO 20 mg BID DANYEL Administration Folic Acid 1 mg 03/17/20 09:00 03/23/20 09:17 Folic Acid 1 Mg Tablet PO 1 mg DAILY DANYEL Administration Lorazepam 1 mg 03/23/20 03:38 03/23/20 03:45 Lorazepam 2 Mg/M l Inj 1 Ml IVP 1 mg Q4H PRN Administration ANXIETY Multivitamins Ther apeutic 1 tab 03/17/20 09:00 03/23/20 09:18 Multivitamin The rapeutic Tablet PO 1 tab DAILY DANYEL Administration Ondansetron HCl 4 mg 03/17/20 08:45 03/23/20 09:21 Ondansetron 2 Mg /Ml Sdv 2 Ml IVP 4 mg Q6H PRN Administration NAUSEA AND VOMITI NG Thiamine Mononitra te 100 mg 03/17/20 09:00 03/23/20 09:17 Thiamine 100 Mg Tablet PO 100 mg DAILY DANYEL Administration Tramadol HCl 50 mg 03/22/20 11:24 03/23/20 09:17 Tramadol 50 Mg T ablet PO 50 mg Q6H PRN Administration MODERATE PAIN Zinc Gluconate 50 mg 03/17/20 11:00 03/23/20 09:17 Zinc Gluconate 5 0 Mg Tablet PO 50 mg DAILY DANYEL Administration Vitals/I&O/Wt Last Vital Signs Temp 97.7 F 03/25/20 12:00 Pulse 73 03/25/20 12:00 Resp 18 03/25/20 12:00 BP 128/81 03/25/20 12:00 Pulse Ox 97 03/25/20 12:00 03/25/20 03/25/20 03/25/20 06:59 14:59 22:59 Intake Total 300 / 1870 480 / 480 Balance 300 / 1870 480 / 480 Weight last 48 hrs Weight 134.405 kg Physical Exam Const: COMMON NORMALS: no acute distress and patient oriented x3 HENMT: COMMON NORMALS: normocephalic HEAD & SCALP: normocephalic Neck/C-Spine: COMMON NORMALS: no JVD Resp: COMMON NORMALS: normal respiratory effort, No retractions, No use of accessory muscles and clear to auscultation bilaterally AUSCULTATION: clear to auscultation bilaterally Cardio: COMMON NORMALS: no JVD, regular rate, regular rhythm, S1 normal heart sound present and S2 normal heart sound present RATE: regular rate RHYTHM: regular rhythm HEART SOUNDS: S1 normal heart sound present and S2 normal heart sound present GI: COMMON NORMALS: Normal to inspection, nondistended, normoactive bowel sounds present, Soft to palpation, non-tender, No hepatosplenomegaly present, no masses and no bruits PALPATION: Yes Soft to palpation and Yes No hepatosplenomegaly present Extremity: COMMON NORMALS: capillary refill normal, no clubbing, cyanosis or edema, no calf tenderness and no pedal edema OTHER: Left ankle and Dami wrap Neuro: COMMON NORMALS: patient oriented x3 Psych: COMMON NORMALS: mental status grossly normal Urinary Catheter Management^: Jacobo: Cath Placed During This Visit: yes, but has since been removed by the nurse Reason for Continuing Indwelling Catheter: Decision to DC Catheter Urinary Catheter Date of Insertion: 03/17/20 Urinary Catheter Time of Insertion: 03:38 Date Urinary Catheter Removed: 03/22/20 Time Urinary Catheter Discontinued: 13:30 Data : 03/22/20 03:25 03/24/20 06:15 A&P Assessment and plan (1) Open trimalleolar fracture of left ankle: Status post incision and drainage of wound and open reduction internal fixation Pain control with tramadol Discussed with Dr. Davila no need for antibiotics Resume Plavix No need for wound care Extremities in a splint, nonweightbearing Follow with Dr. Freeman in 2 weeks Currently waiting for halfway placement Status: Acute Qualifiers: Encounter type: initial encounter Open fracture type: open type III Qualified Code(s): S82.852C - Displaced trimalleolar fracture of left lower leg, initial encounter for open fracture type IIIA, IIIB, or IIIC (2) Acute on chronic respiratory failure with hypercapnia: Secondary to alcohol intoxication, with history of COPD SVETLANA Successfully extubated Resolved Status: Acute (3) Alcohol intoxication: Alcohol levels greater than 200, received banana bag, folic acid vitamin C, thiamine, multivitamin Out of alcohol withdrawal window Advised to abstain from alcohol, resolved Status: Acute Qualifiers: Complication of substance-induced condition: with unspecified complication Qualified Code(s): F10.929 - Alcohol use, unspecified with intoxication, unspecified (4) COVID-19: Discharged on March 10 after receiving treatment with remdesivir, dexamethasone and convalescent plasma plus antibiotics, not yet out of isolation, unknown current clinical symptoms, had been discharged on oxygen Status: Acute (5) CAD (coronary artery disease): Has had 2 previous stents, echocardiogram done earlier this month showed an ejection fraction of 70%, normal diastolic function and no valvular abnormalities. For now hold off on aspirin. Continue statin through NG tube. Status: Chronic (6) Essential (primary) hypertension: Status: Chronic (7) Morbid obesity: Status: Chronic Additional A&P Information Anemia probably secondary to #1 on top of probably chronic anemia. Stable. Elevated LFTs probably secondary to EtOH. Continue monitoring. DVT prophylaxis. Plavix. History of coronary artery disease. Home medications are resumed including Plavix. Hypertension. Currently well controlled. Continue current management. History of COVID-19 pneumonia. Probably bilateral infiltrates are residual. Normal oxygenation without supplemental oxygen. Disposition. half-way facility placement is pending. The plan of care was discussed with the patient. She verbalized understanding and agreement. Discussed with the multidisciplinary team. Attestations Medical Necessity Statement*: She requires hospitalization for left ankle open reduction internal fixation, alcohol intoxication, acute respiratory failure, now awaiting halfway placement Procedures Arterial Line Size (Gauge): 20 Coding Level of Care Code Acute Claim Professional for [facility] Diagnoses Open trimalleolar fracture of left ankle S82.852C Encounter type: initial encounter Open fracture type: open type III Acute on chronic respiratory failure with hypercapnia J96.22 Alcohol intoxication F10.929 Complication of substance-induced condition: with unspecified complication COVID-19 U07.1 CAD (coronary artery disease) I25.10 Essential (primary) hypertension I10 Morbid obesity E66.01
[2020-03-25] MEDS: atorvastatin 40 mg Tablet 80 MG PO (20:57)
[2020-03-25] MEDS: LORazepam 2 mg/mL INJ 1 mL 1 MG IVP (20:57)
[2020-03-26] VITALS (24 sets, daily range): BP systolic 113–137; BP diastolic 64–96; PULSE 57–110; RESP 12–26; TEMP 36.8; O2SAT 82–100; BMI 50.3
[2020-03-26 06:09] LABS: Basophils % 0.5 %; Eosinophils # 0.2 10^3/uL (0.0-0.8); Eosinophils % 2.2 %; Hematocrit 28.3 % (37.0-47.0); Hemoglobin 8.2 g/dL (11.5-15.3); Lymphocytes # 1.8 10^3/uL (0.8-4.8); Lymphocytes % 24.3 %; Mean Corpuscular Hemoglobin 24.5 pg (28.0-34.0); Mean Corpuscular Volume 84.5 fL (81-99); Monocytes # 0.7 10^3/uL (0.2-0.9); Neutrophils # 4.63 10^3/uL (1.8-7.7); Neutrophils % 62.7 %; Nucleated Red Blood Cells % 0 %; Platelet Count 339 10^3/cmm (130-400); Red Blood Count 3.35 10^6/uL (4.1-5.3); Red Cell Distribution Width 22.4 % (12.1-15.1); White Blood Count 7.4 10^3/uL (4.0-10.0)
[2020-03-26 06:34] LABS: Alanine Aminotransferase 13 U/L (0-33); Albumin Level 2.5 g/dL (3.5-5.2); Alkaline Phosphatase 91 IU/L (35-105); Anion Gap 11.4 (5-19); Aspartate Amino Transferase 23 U/L (0-32); Blood Urea Nitrogen 8 mg/dL (8-23); Calcium 8.5 mg/dL (8.5-10.5); Carbon Dioxide 27 mmol/L (22-29); Chloride 106 mmol/L (98-107); Globulin 3.1 g/dL (1.3-4.6); Glomerular Filtration Rate 125.9 mL/min (90-130); Glucose 83 mg/dL (65-115); Osmolality Calculated 289 mOsm/kg (285-295); Phosphorus 3.7 mg/dL (2.5-4.5); Potassium 3.4 mmol/L (3.5-5.1); Sodium 141 mmol/L (136-145); Total Bilirubin 0.5 mg/dL (0.15-1.2); Total Protein 5.6 g/dL (6.6-8.7)
[2020-03-26] MEDS: budesonide 0.5 mg/2 mL Neb INHALATION ×2 (08:19→20:43)
[2020-03-26] MEDS: ipratropium-albuterol 3 mL Neb INHALATION ×3 (08:19→20:43)
[2020-03-26] MEDS: thiamine 100 mg Tablet PO (09:13)
[2020-03-26] MEDS: folic acid 1 mg Tablet PO (09:13)
[2020-03-26] MEDS: multivitamin therapeutic Tablet 1 TAB PO (09:13)
[2020-03-26] MEDS: famotidine 20 mg Tablet PO ×2 (09:14→17:20)
[2020-03-26] MEDS: ascorbic acid 500 mg Tablet 1000 MG PO ×2 (09:14→17:19)
[2020-03-26] MEDS: clopidogrel 75 mg Tablet PO (09:14)
[2020-03-26] MEDS: zinc gluconate 50 mg Tablet PO (09:15)
[2020-03-26] MEDS: TRAMadol 50 mg Tablet PO ×2 (09:19→17:20)
[2020-03-26] MEDS: carvedilol 12.5 mg Tablet PO ×2 (09:20→21:05)
--- NOTE | 2020-03-26 11:37 | P.PN_ITS ---
Subjective Subjective: Interval history: Patient this morning's complaint of bilateral extremity edema, no fevers, no chills, no nausea, no vomiting, is awaiting nursing placement, patient is considering going home if she cant be placed in a residential Medications: Reviewed: Yes Medication Review Details: Generic Name Dose Route Start Last Admin Trade Name Freq PRN Reason Stop Dose Admin Acetaminophen 650 mg 03/17/20 08:45 03/23/20 09:16 Acetaminophen 32 5 Mg Tablet PO 650 mg Q6H PRN Administration MILD PAIN Albuterol/Ipratrop ium 3 ml 03/17/20 12:00 03/23/20 11:19 Ipratropium-Albu terol 3 Ml Neb INHALATION 3 ml QID.RESPIRATORY S CH Administration Ascorbic Acid 1,000 mg 03/17/20 18:00 03/23/20 09:17 Ascorbic Acid 50 0 Mg Tablet PO 1,000 mg BID DANYEL Administration Atorvastatin Calci um 80 mg 03/17/20 22:00 03/22/20 21:09 Atorvastatin 40 Mg Tablet PO 80 mg BEDTIME@2200 DANYEL Administration Budesonide 0.5 mg 03/17/20 20:00 03/23/20 08:15 Budesonide 0.5 M g/2 Ml Neb INHALATION 0.5 mg BID.RESPIRATORY S CH Administration Carvedilol 12.5 mg 03/17/20 09:00 03/23/20 09:21 Carvedilol 12.5 Mg Tablet PO 12.5 mg DANYEL Administration Clopidogrel Bisulf ate 75 mg 03/20/20 09:00 03/23/20 09:17 Clopidogrel 75 M g Tablet PO 75 mg DAILY DANYEL Administration Docusate Sodium 100 mg 03/17/20 09:42 03/19/20 18:01 Docusate Sodium 100 Mg Capsule PO 100 mg BID PRN Administration CONSTIPATION Famotidine 20 mg 03/20/20 09:00 03/23/20 09:17 Famotidine 20 Mg Tablet PO 20 mg BID DANYEL Administration Folic Acid 1 mg 03/17/20 09:00 03/23/20 09:17 Folic Acid 1 Mg Tablet PO 1 mg DAILY DANYEL Administration Lorazepam 1 mg 03/23/20 03:38 03/23/20 03:45 Lorazepam 2 Mg/M l Inj 1 Ml IVP 1 mg Q4H PRN Administration ANXIETY Multivitamins Ther apeutic 1 tab 03/17/20 09:00 03/23/20 09:18 Multivitamin The rapeutic Tablet PO 1 tab DAILY DANYEL Administration Ondansetron HCl 4 mg 03/17/20 08:45 03/23/20 09:21 Ondansetron 2 Mg /Ml Sdv 2 Ml IVP 4 mg Q6H PRN Administration NAUSEA AND VOMITI NG Thiamine Mononitra te 100 mg 03/17/20 09:00 03/23/20 09:17 Thiamine 100 Mg Tablet PO 100 mg DAILY DANYEL Administration Tramadol HCl 50 mg 03/22/20 11:24 03/23/20 09:17 Tramadol 50 Mg T ablet PO 50 mg Q6H PRN Administration MODERATE PAIN Zinc Gluconate 50 mg 03/17/20 11:00 03/23/20 09:17 Zinc Gluconate 5 0 Mg Tablet PO 50 mg DAILY DANYEL Administration Vitals/I&O/Wt Last Vital Signs Temp 97.7 F 03/25/20 15:49 Pulse 84 03/26/20 09:45 Resp 22 H 03/26/20 09:00 BP 126/65 03/26/20 08:00 Pulse Ox 96 03/26/20 08:21 03/25/20 03/26/20 03/26/20 22:59 06:59 14:59 Intake Total 480 / 960 130 / 1090 140 / 140 Output Total 300 / 300 650 / 950 Balance 180 / 660 -520 / 140 140 / 140 Weight last 48 hrs Weight 132.993 kg Physical Exam Const: COMMON NORMALS: no acute distress and patient oriented x3 HENMT: COMMON NORMALS: normocephalic HEAD & SCALP: normocephalic Neck/C-Spine: COMMON NORMALS: no JVD Resp: COMMON NORMALS: normal respiratory effort, No retractions, No use of accessory muscles and clear to auscultation bilaterally AUSCULTATION: clear to auscultation bilaterally Cardio: COMMON NORMALS: no JVD, regular rate, regular rhythm, S1 normal heart sound present and S2 normal heart sound present RATE: regular rate RHYTHM: regular rhythm HEART SOUNDS: S1 normal heart sound present and S2 normal heart sound present GI: COMMON NORMALS: Normal to inspection, nondistended, normoactive bowel sounds present, Soft to palpation, non-tender, No hepatosplenomegaly present, no masses and no bruits PALPATION: Yes Soft to palpation and Yes No hep atosplenomegaly present Extremity: COMMON NORMALS: capillary refill normal, no clubbing, cyanosis or edema and no calf tenderness NARRATIVE EXTREMITY EXAM: 1+ pitting edema OTHER: Left ankle and Dami wrap Neuro: COMMON NORMALS: patient oriented x3 Psych: COMMON NORMALS: mental status grossly normal Urinary Catheter Management^: Jacobo: Cath Placed During This Visit: yes, but has since been removed by the nurse Reason for Continuing Indwelling Catheter: Decision to DC Catheter Urinary Catheter Date of Insertion: 03/17/20 Urinary Catheter Time of Insertion: 03:38 Date Urinary Catheter Removed: 03/22/20 Time Urinary Catheter Discontinued: 13:30 Data : 03/26/20 05:19 03/26/20 05:19 A&P Assessment and plan (1) Open trimalleolar fracture of left ankle: Status post incision and drainage of wound and open reduction internal fixation Pain control with tramadol Discussed with Dr. Davila no need for antibiotics Resume Plavix No need for wound care Extremities in a splint, nonweightbearing Follow with Dr. Freeman in 2 weeks Currently waiting for residential placement Status: Acute Qualifiers: Encounter type: initial encounter Open fracture type: open type III Qualified Code(s): S82.852C - Displaced trimalleolar fracture of left lower leg, initial encounter for open fracture type IIIA, IIIB, or IIIC (2) Acute on chronic respiratory failure with hypercapnia: Secondary to alcohol intoxication, with history of COPD SVETLANA Successfully extubated Resolved Status: Acute (3) Alcohol intoxication: Alcohol levels greater than 200, received banana bag, folic acid vitamin C, thiamine, multivitamin Out of alcohol withdrawal window Advised to abstain from alcohol, resolved Status: Acute Qualifiers: Complication of substance-induced condition: with unspecified complication Qualified Code(s): F10.929 - Alcohol use, unspecified with intoxication, unspecified (4) COVID-19: Discharged on March 10 after receiving treatment with remdesivir, dexamethasone and convalescent plasma plus antibiotics, not yet out of isolation, unknown current clinical symptoms, had been discharged on oxygen Status: Acute (5) CAD (coronary artery disease): Has had 2 previous stents, echocardiogram done earlier this month showed an ejection fraction of 70%, normal diastolic function and no valvular abnormalities. For now hold off on aspirin. Continue statin through NG tube. Status: Chronic (6) Essential (primary) hypertension: Status: Chronic (7) Morbid obesity: Status: Chronic Additional A&P Information Bilateral extreme edema, will give 1 dose of Lasix with potassium placement today Anemia probably secondary to #1 on top of probably chronic anemia. Stable. Elevated LFTs probably secondary to EtOH. Continue monitoring. DVT prophylaxis. Plavix. History of coronary artery disease. Home medications are resumed including Plavix. Hypertension. Currently well controlled. Continue current management. History of COVID-19 pneumonia. Probably bilateral infiltrates are residual. Normal oxygenation without supplemental oxygen. Disposition. long term facility placement is pending. The plan of care was discussed with the patient. She verbalized understanding and agreement. Discussed with the multidisciplinary team. Attestations Medical Necessity Statement*: Patient requires hospitalization for open trimalleolar left ankle fracture, respiratory failure, alcohol intoxication, awaiting residential placement Procedures Arterial Line Size (Gauge): 20 Coding Level of Care Code Acute Predictive Maintenance Specialist for [facility] Diagnoses Open trimalleolar fracture of left ankle S82.852C Encounter type: initial encounter Open fracture type: open type III Acute on chronic respiratory failure with hypercapnia J96.22 Alcohol intoxication F10.929 Complication of substance-induced condition: with unspecified complication COVID-19 U07.1 CAD (coronary artery disease) I25.10 Essential (primary) hypertension I10 Morbid obesity E66.01
--- NOTE | 2020-03-26 11:47 | PC.SOCIAL ---
*IMM Update* IMM update to pt via phone. She understood. initialed, dated, timed and placed in chart.
[2020-03-26] MEDS: FUROsemide 10 mg/mL SDV 4mL 40 MG IVP (12:32)
[2020-03-26] MEDS: potassium chloride ER 20 mEq Tablet 40 MEQ PO (12:34)
[2020-03-26] MEDS: gabapentin 300 mg Capsule PO (12:34)
[2020-03-26] MEDS: gabapentin 300 mg Capsule 600 MG PO (21:06)
[2020-03-26] MEDS: atorvastatin 40 mg Tablet 80 MG PO (21:06)
[2020-03-27] VITALS (12 sets, daily range): BP systolic 110–140; BP diastolic 67–76; PULSE 75–88; RESP 16–23; TEMP 36.6; O2SAT 92–100
[2020-03-27 04:47] LABS: Basophils % 0.4 %; Eosinophils # 0.2 10^3/uL (0.0-0.8); Eosinophils % 2.7 %; Hematocrit 27.5 % (37.0-47.0); Hemoglobin 7.9 g/dL (11.5-15.3); Lymphocytes # 2.1 10^3/uL (0.8-4.8); Lymphocytes % 27.5 %; Mean Corpuscular HGB Conc 28.7 g/dL (30.0-36.0); Mean Corpuscular Hemoglobin 24.6 pg (28.0-34.0); Mean Corpuscular Volume 85.7 fL (81-99); Monocytes # 0.9 10^3/uL (0.2-0.9); Monocytes % 11.2 %; Neutrophils # 4.43 10^3/uL (1.8-7.7); Neutrophils % 57.8 %; Nucleated Red Blood Cells % 0 %; Platelet Count 344 10^3/cmm (130-400); Red Blood Count 3.21 10^6/uL (4.1-5.3); Red Cell Distribution Width 22.2 % (12.1-15.1); White Blood Count 7.7 10^3/uL (4.0-10.0)
[2020-03-27 05:45] LABS: Alanine Aminotransferase 14 U/L (0-33); Albumin Level 2.6 g/dL (3.5-5.2); Alkaline Phosphatase 95 IU/L (35-105); Anion Gap 12.7 (5-19); Aspartate Amino Transferase 24 U/L (0-32); Blood Urea Nitrogen 10 mg/dL (8-23); Calcium 8.9 mg/dL (8.5-10.5); Carbon Dioxide 26 mmol/L (22-29); Chloride 107 mmol/L (98-107); Globulin 3.1 g/dL (1.3-4.6); Glucose 87 mg/dL (65-115); Osmolality Calculated 292 mOsm/kg (285-295); Phosphorus 4.3 mg/dL (2.5-4.5); Potassium 3.7 mmol/L (3.5-5.1); Sodium 142 mmol/L (136-145); Total Bilirubin 0.5 mg/dL (0.15-1.2); Total Protein 5.7 g/dL (6.6-8.7)
[2020-03-27] MEDS: ipratropium-albuterol 3 mL Neb INHALATION ×3 (07:47→15:36)
[2020-03-27] MEDS: budesonide 0.5 mg/2 mL Neb INHALATION (07:47)
[2020-03-27] MEDS: famotidine 20 mg Tablet PO (09:06)
[2020-03-27] MEDS: multivitamin therapeutic Tablet 1 TAB PO (09:06)
[2020-03-27] MEDS: clopidogrel 75 mg Tablet PO (09:06)
[2020-03-27] MEDS: gabapentin 300 mg Capsule 600 MG PO (09:06)
[2020-03-27] MEDS: ascorbic acid 500 mg Tablet 1000 MG PO (09:06)
[2020-03-27] MEDS: folic acid 1 mg Tablet PO (09:07)
[2020-03-27] MEDS: carvedilol 12.5 mg Tablet PO (09:07)
[2020-03-27] MEDS: thiamine 100 mg Tablet PO (09:07)
[2020-03-27] MEDS: zinc gluconate 50 mg Tablet PO (09:07)
--- NOTE | 2020-03-27 11:25 | P.PN_ITS ---
Subjective Subjective: Interval history: Patient is doing well this morning, awaiting jail placement, she is tells me that she wants us to resume her home Cymbalta and anxiety medication, but is unsure which anxiety medication she takes Medications: Reviewed: Yes Medication Review Details: Generic Name Dose Route Start Last Admin Trade Name Chachoq PRN Reason Stop Dose Admin Acetaminophen 650 mg 03/17/20 08:45 03/23/20 09:16 Acetaminophen 32 5 Mg Tablet PO 650 mg Q6H PRN Administration MILD PAIN Albuterol/Ipratrop ium 3 ml 03/17/20 12:00 03/23/20 11:19 Ipratropium-Albu terol 3 Ml Neb INHALATION 3 ml QID.RESPIRATORY S CH Administration Ascorbic Acid 1,000 mg 03/17/20 18:00 03/23/20 09:17 Ascorbic Acid 50 0 Mg Tablet PO 1,000 mg BID DANYEL Administration Atorvastatin Calci um 80 mg 03/17/20 22:00 03/22/20 21:09 Atorvastatin 40 Mg Tablet PO 80 mg BEDTIME@2200 DANYEL Administration Budesonide 0.5 mg 03/17/20 20:00 03/23/20 08:15 Budesonide 0.5 M g/2 Ml Neb INHALATION 0.5 mg BID.RESPIRATORY S CH Administration Carvedilol 12.5 mg 03/17/20 09:00 03/23/20 09:21 Carvedilol 12.5 Mg Tablet PO 12.5 mg DANYEL Administration Clopidogrel Bisulf ate 75 mg 03/20/20 09:00 03/23/20 09:17 Clopidogrel 75 M g Tablet PO 75 mg DAILY DANYEL Administration Docusate Sodium 100 mg 03/17/20 09:42 03/19/20 18:01 Docusate Sodium 100 Mg Capsule PO 100 mg BID PRN Administration CONSTIPATION Famotidine 20 mg 03/20/20 09:00 03/23/20 09:17 Famotidine 20 Mg Tablet PO 20 mg BID DANYEL Administration Folic Acid 1 mg 03/17/20 09:00 03/23/20 09:17 Folic Acid 1 Mg Tablet PO 1 mg DAILY DANYEL Administration Lorazepam 1 mg 03/23/20 03:38 03/23/20 03:45 Lorazepam 2 Mg/M l Inj 1 Ml IVP 1 mg Q4H PRN Administration ANXIETY Multivitamins Ther apeutic 1 tab 03/17/20 09:00 03/23/20 09:18 Multivitamin The rapeutic Tablet PO 1 tab DAILY DANYEL Administration Ondansetron HCl 4 mg 03/17/20 08:45 03/23/20 09:21 Ondansetron 2 Mg /Ml Sdv 2 Ml IVP 4 mg Q6H PRN Administration NAUSEA AND VOMITI NG Thiamine Mononitra te 100 mg 03/17/20 09:00 03/23/20 09:17 Thiamine 100 Mg Tablet PO 100 mg DAILY DANYEL Administration Tramadol HCl 50 mg 03/22/20 11:24 03/23/20 09:17 Tramadol 50 Mg T ablet PO 50 mg Q6H PRN Administration MODERATE PAIN Zinc Gluconate 50 mg 03/17/20 11:00 03/23/20 09:17 Zinc Gluconate 5 0 Mg Tablet PO 50 mg DAILY DANYEL Administration Vitals/I&O/Wt Last Vital Signs Temp 97.8 F 03/27/20 04:00 Pulse 79 03/27/20 11:15 Resp 16 03/27/20 11:15 BP 110/76 03/27/20 08:00 Pulse Ox 97 03/27/20 11:15 03/26/20 03/27/20 03/27/20 22:59 06:59 14:59 Intake Total 480 / 740 120 / 120 Output Total 275 / 275 300 / 575 450 / 450 Balance 205 / 465 -300 / 165 -330 / -330 Weight last 48 hrs Weight 132.993 kg Weight 132.993 kg Physical Exam Const: COMMON NORMALS: no acute distress and patient oriented x3 HENMT: COMMON NORMALS: normocephalic HEAD & SCALP: normocephalic Neck/C-Spine: COMMON NORMALS: no JVD Resp: COMMON NORMALS: normal respiratory effort, No retractions, No use of accessory muscles and clear to auscultation bilaterally AUSCULTATION: clear to auscultation bilaterally Cardio: COMMON NORMALS: no JVD, regular rate, regular rhythm, S1 normal heart sound present and S2 normal heart sound present RATE: regular rate RHYTHM: regular rhythm HEART SOUNDS: S1 normal heart sound present and S2 normal heart sound present GI: COMMON NORMALS: Normal to inspection, nondistended, normoactive bowel sounds present, Soft to palpation, non-tender, No hepatosplenomegaly present, no masses and no bruits PALPATION: Yes Soft to palpation and Yes No hepatosplenomegaly present Extremity: COMMON NORMALS: capillary refill normal, no clubbing, cyanosis or edema and no calf tenderness NARRATIVE EXTREMITY EXAM: Nonpitting edema OTHER: Left ankle and Dami wrap Neuro: COMMON NORMALS: patient oriented x3 Psych: COMMON NORMALS: mental status grossly normal Urinary Catheter Management^: Jacobo: Cath Placed During This Visit: yes, but has since been removed by the nurse Reason for Continuing Indwelling Catheter: Decision to DC Catheter Urinary Catheter Date of Insertion: 03/17/20 Urinary Catheter Time of Insertion: 03:38 Date Urinary Catheter Removed: 03/22/20 Time Urinary Catheter Discontinued: 13:30 Data : 03/27/20 03:55 03/27/20 03:55 A&P Assessment and plan (1) Open trimalleolar fracture of left ankle: Status post incision and drainage of wound and open reduction internal fixation Pain control with tramadol Discussed with Dr. Freeman no need for antibiotics Resume Plavix No need for wound care Extremities in a splint, nonweightbearing Follow with Dr. Freeman in 2 weeks Currently waiting for jail placement Status: Acute Qualifiers: Encounter type: initial encounter Open fracture type: open type III Qualified Code(s): S82.852C - Displaced trimalleolar fracture of left lower leg, initial encounter for open fracture type IIIA, IIIB, or IIIC (2) Acute on chronic respiratory failure with hypercapnia: Secondary to alcohol intoxication, with history of COPD SVETLANA Successfully extubated Resolved Status: Acute (3) Alcohol intoxication: Alcohol levels greater than 200, received banana bag, folic acid vitamin C, thiamine, multivitamin Out of alcohol withdrawal window Advised to abstain from alcohol, resolved Status: Acute Qualifiers: Complication of substance-induced condition: with unspecified complication Qualified Code(s): F10.929 - Alcohol use, unspecified with intoxication, unspecified (4) COVID-19: Discharged on March 10 after receiving treatment with remdesivir, dexamethasone and convalescent plasma plus antibiotics, not yet out of isolati on, unknown current clinical symptoms, had been discharged on oxygen Status: Acute (5) CAD (coronary artery disease): Has had 2 previous stents, echocardiogram done earlier this month showed an ejection fraction of 70%, normal diastolic function and no valvular abnormalities. For now hold off on aspirin. Continue statin through NG tube. Status: Chronic (6) Essential (primary) hypertension: Status: Chronic (7) Morbid obesity: Status: Chronic Additional A&P Information Bilateral extreme edema, improved with Lasix Anemia probably secondary to #1 on top of probably chronic anemia. Stable. Elevated LFTs probably secondary to EtOH. Continue monitoring. DVT prophylaxis. Plavix. History of coronary artery disease. Home medications are resumed including Plavix. Hypertension. Currently well controlled. Continue current management. History of COVID-19 pneumonia. Probably bilateral infiltrates are residual. Normal oxygenation without supplemental oxygen. Disposition. detention facility placement is pending. The plan of care was discussed with the patient. She verbalized understanding and agreement. Discussed with the multidisciplinary team. Attestations Medical Necessity Statement*: Patient requires hospitalization for ankle fracture status post surgical repair, alcoholic intoxication, respiratory failure awaiting jail placement Procedures Arterial Line Size (Gauge): 20 Coding Level of Care Code Acute Corporate Investigator for [facility] Diagnoses Open trimalleolar fracture of left ankle S82.852C Encounter type: initial encounter Open fracture type: open type III Acute on chronic respiratory failure with hypercapnia J96.22 Alcohol intoxication F10.929 Complication of substance-induced condition: with unspecified complication COVID-19 U07.1 CAD (coronary artery disease) I25.10 Essential (primary) hypertension I10 Morbid obesity E66.01
[2020-03-27] MEDS: gabapentin 300 mg Capsule PO (11:44)
--- NOTE | 2020-03-27 12:27 | P.DS_ITS ---
Discharge Providers Date of Admission: 03/17/20 06:58 Date of Discharge: March 27, 2020 Attending Provider at Admission: Angela Johnson MD Attending Provider at Discharge: Luis Daniel Walsh MD Primary Care Provider: ISABELLE Browne Diagnoses at Discharge Discharge Diagnosis (1) Open trimalleolar fracture of left ankle: Status: Acute Qualifiers: Encounter type: initial encounter Open fracture type: open type III Qualified Code(s): S82.852C - Displaced trimalleolar fracture of left lower leg, initial encounter for open fracture type IIIA, IIIB, or IIIC (2) Acute on chronic respiratory failure with hypercapnia: Status: Acute (3) Alcohol intoxication: Status: Acute Qualifiers: Complication of substance-induced condition: with unspecified complication Qualified Code(s): F10.929 - Alcohol use, unspecified with intoxication, unspecified (4) COVID-19: Status: Acute (5) CAD (coronary artery disease): Status: Chronic Permanent problem details: has 2 stents (6) Essential (primary) hypertension: Status: Chronic (7) Morbid obesity: Status: Chronic Permanent problem details: BMI ~55 kg/m2 Reason for Visit Reason for Visit: open ankle fx Hospital Course Hospital Course This is a 59-year-old female with a past medical history of COPD, recent admission of respiratory failure associate with COVID-19, CAD, anxiety and depression, hypertension, hyperlipidemia, morbid obesity, history of alcohol abuse Who presented to [facility] due to a fall, severe ankle fracture, alcohol intoxication, and acute respiratory failure For patient's ankle fracture, she had a grade 3A open bimalleolar ankle fracture, status post open reduction internal fixation of bimalleolar ankle fracture, incision drainage down to bone medial ankle wound, complex closure of the wound. Was kept on Plavix for DVT prophylaxis. She is nonweightbearing left lower extremity. Received PT OT as inpatient. Splint left lower extremity. Patient was discharged to a rehab facility in [facility], with a follow-up with Dr. Freeman in 2 to 3 weeks, repeat x-ray in 2 to 3 weeks. For acute hypercapnic respiratory failure secondary to COPD and obesity hypoventilation and alcohol and intoxication, patient was intubated in the emergency room, placed on the ventilator, monitor in the ICU, received medications for alcohol withdrawal, successfully extubated, monitored for withdrawal clinically improved, moved out of the ICU to a viral ICU. Clinically doing well, on her home 2 L, discharged on home inhalers, monitor for fevers, worsening shortness of breath. For her recurrent alcohol abuse, advised to abstain from alcohol consumption. Anemia probably likely acute on chronic anemia, repeat CBC in 1 week Elevated LFTs probably secondary to EtOH. Continue monitoring as outpatient, abstain from alcohol DVT prophylaxis. Plavix. History of coronary artery disease. Home medications are resumed including Plavix. Hypertension. Coreg 12.5 twice daily, lisinopril 20 mg daily History of COVID-19 pneumonia. Normal oxygenation without supplemental oxygen. Physical Exam Const: COMMON NORMALS: no acute distress and patient oriented x3 HENMT: COMMON NORMALS: normocephalic HEAD & SCALP: normocephalic Neck/C-Spine: COMMON NORMALS: no JVD Resp: COMMON NORMALS: normal respiratory effort, No retractions, No use of accessory muscles and clear to auscultation bilaterally AUSCULTATION: clear to auscultation bilaterally Cardio: COMMON NORMALS: no JVD, regular rate, regular rhythm, S1 normal heart sound present and S2 normal heart sound present RATE: regular rate RHYTHM: regular rhythm HEART SOUNDS: S1 normal heart sound present and S2 normal heart sound present GI: COMMON NORMALS: Normal to inspection, nondistended, normoactive bowel sounds present, Soft to palpation, non-tender, No hepatosplenomegaly present, no masses and no bruits PALPATION: Yes Soft to palpation and Yes No hepatosplenomegaly present Extremity: COMMON NORMALS: capillary refill normal, no clubbing, cyanosis or edema, no calf tenderness and no pedal edema Neuro: COMMON NORMALS: patient oriented x3 Psych: COMMON NORMALS: mental status grossly normal Urinary Catheter Management^: Jacobo: Cath Placed During This Visit: yes, but has since been removed by the nurse Reason for Continuing Indwelling Catheter: Decision to DC Catheter Urinary Catheter Date of Insertion: 03/17/20 Urinary Catheter Time of Insertion: 03:38 Date Urinary Catheter Removed: 03/22/20 Time Urinary Catheter Discontinued: 13:30 Discharge Data Data Completed and Pending: Completed Studies During Hospitalization Category Date Time Status CT cervical spin wo con* 19159 Urge nt Cat Scan 03/17/20 02:[address] head wo con* 7 0450 Urgent Cat Scan 03/17/20 02:56 Completed XR ankle LT 2V 73 600 Stat Exams 03/17/20 02:58 Completed XR ankle LT min 3 V* [id number] Routine Exams 03/17/20 17:13 Completed XR chest 1V keisha ble 73614 Q48H Exams 03/18/20 06:00 Completed XR chest 1V keisha ble 80348 Q48H Exams 03/20/20 06:00 Completed XR chest 1V keisha ble 33421 Q48H Exams 03/22/20 06:00 Completed XR chest 1V keisha ble [id number] Stat Exams 03/17/20 03:22 Completed XR tibia fibula L T 2V 61232 Stat Exams 03/17/20 02:33 Completed Pending at discharge Category Date Time Status Complete Blood Co unt w/Auto AM LABS Lab 03/28/20 04:00 Ordered Comprehensive Met abolic Panel AM LA BS Lab 03/28/20 04:00 Ordered Magnesium AM LABS Lab 03/28/20 04:00 Ordered Phosphorus AM LAB S Lab 03/28/20 04:00 Ordered Labs from last 24 hours 03/27/20 03/27/20 03:55 03:55 WBC 7.7 RBC 3.21 L Hgb 7.9 L Hct 27.5 L MCV 85.7 MCH 24.6 L MCHC 28.7 L RDW 22.2 H Plt Count 344 MPV 10.0 Neut % (Auto) 57.8 Lymph % (Auto) 27.5 [place] % (Auto) 11.2 Eos % (Auto) 2.7 Baso % (Auto) 0.4 Neut # (Auto) 4.43 Lymph # (Auto) 2.1 [place] # (Auto) 0.9 Eos # (Auto) 0.2 Baso # (Auto) 0.0 Nucleated RBC % (a uto) 0 Nucleated RBCs # 0.0 Sodium 142 Potassium 3.7 Chloride 107 Carbon Dioxide 26 Anion Gap 12.7 BUN 10 Creatinine 0.6 GFR Calculation 102.0 Glucose 87 Calculated Osmolal ity 292 Calcium 8.9 Phosphorus 4.3 Magnesium 2.0 Total Bilirubin 0.5 AST 24 ALT 14 Alkaline Phosphata se 95 Total Protein 5.7 L Albumin 2.6 L Globulin 3.1 Vitals: Last Vital Signs Temp 97.8 F 03/27/20 04:00 Pulse 75 03/27/20 11:43 Resp 23 H 03/27/20 11:43 BP 140/67 03/27/20 11:43 Pulse Ox 92 03/27/20 11:43 Discharge Plan Discharge Patient Disposition: Xfer SNF Condition: Stable Prescriptions: New tramadol 50 mg Tablet 50 mg PO Q6H PRN (Reason: Moderate Pain) 7 Days Qty: 28 RF: 0 Continued (DME) lace up ankle brace See Rx Instructions .Route .MEDSUPPLY Qty: 1 RF: 0 albuterol sulfate 2.5 mg /3 mL (0.083 %) solution for nebulization 2.5 mg INHALATION Q4H PRN (Reason: shortness of breath or wheezing) 30 Days Qty: 75 RF: 2 cyclobenzaprine 10 mg tablet 10 mg PO TID PRN (Reason: Muscle Spasm) Qty: 30 RF: 2 gabapentin 300 mg capsule See Rx Instructions .ROUTE .COMPLEX Qty: 150 RF: 2 hydroxyzine HCl 50 mg tablet 50 mg PO BID PRN (Reason: anxiety) Qty: 60 RF: 2 (DME) Wheelchair See Rx Instructions .ROUTE .MEDSUPPLY Qty: 1 RF: 0 meclizine 25 mg tablet 25 mg PO BID PRN (Reason: Dizziness Or Vertigo) Qty: 30 RF: 0 potassium chloride 8 mEq capsule, extended release 8 meq PO DAILY@0900 RF: 0 clopidogrel [Plavix] 75 mg tablet 75 mg PO DAILY@0900 RF: 0 pantoprazole [Protonix] 40 mg tablet,delayed release (DR/EC) 40 mg PO BID@0900,1800 RF: 0 furosemide [Lasix] 20 mg tablet 20 mg PO DAILY PRN (Reason: edema) RF: 0 rosuvastatin 40 mg tablet 40 mg PO BEDTIME@2200 RF: 0 duloxetine 60 mg capsule,delayed release(DR/EC) 60 mg PO BID@0900,1800 RF: 0 B Complex Plus Vitamin C [id number] mg capsule 1 cap PO DAILY@0900 RF: 0 budesonide [Pulmicort] 1 mg/2 mL suspension for nebulization 1 mg INHALATION BID@0900,1800 RF: 0 cholecalciferol (vitamin D3) [Vitamin D3] 125 mcg (5,000 unit) tablet 5,000 unit PO DAILY@0900 RF: 0 albuterol sulfate [Ventolin HFA] 90 mcg/actuation Hfa Aerosol Inhaler 1 puff inhalation Q4H.RESPIRATORY PRN (Reason: shortness of breath or w heezing) Qty: 18 RF: 0 ascorbic acid (vitamin C) [Vitamin C] 500 mg Tablet 1,000 mg PO BID 30 Days Qty: 120 RF: 0 fluticasone propion-salmeterol [Advair Diskus] 500-50 mcg/dose Blister With Device 1 ea inhalation BID.RESPIRATORY Qty: 60 RF: 0 folic acid 1 mg Tablet 1 mg PO DAILY 30 Days Qty: 30 RF: 0 guaifenesin [Mucinex] 600 mg Tablet Extended Release 12hr 600 mg PO BID PRN (Reason: congestion) 30 Days Qty: 30 RF: 0 sucralfate 100 mg/mL Suspension 1 g PO AC&BEDTIME 30 Days Qty: 420 RF: 0 thiamine mononitrate (vit B1) [Vitamin B-1 (mononitrate)] 100 mg Tablet 100 mg PO DAILY 30 Days Qty: 30 RF: 0 zinc gluconate 50 mg Tablet 50 mg PO DAILY 30 Days Qty: 30 RF: 0 Incruse Ellipta 62.5 mcg/actuation blister with device 1 inh inhalation DAILY Qty: 30 RF: 0 Changed carvedilol 25 mg tablet 12.5 mg PO BID@0900,1800 Qty: 0 RF: 0 lisinopril 40 mg tablet 20 mg PO DAILY@0900 Qty: 0 RF: 0 Discharge Orders: Discharge Order (Routine); Ordered 03/27/20 Ordered By: Luis Daniel Walsh Other Ambulatory Orders: XR ankle LT min 3V* 00183 (Routine) Timeframe: 20200402 Location: [facility] Ordered By: Wei Freeman Referrals: Wei Freeman, [Physician] - (Patient has a virtual visit scheduled for Dr Freeman on 04/05/2020 at 11:45am. Pt will need the 3 view non-weight bearing Left ankle x ray obtained prior to appointment but no earlier than 04/01/2020. Please have the images uploaded prior to appointment on 04/05/2020 to [employer]. Clinic will call facility at 11:30am on 04/05/2020 prior to appointment to complete quick registration for visit. For virtual visit will log into [email or web address] Will notify Tennille Oconnor who is over the Orthopedic clinic that [employer] system is used for [facility] to upload images and Dr Freeman has a sign on. Please let clinic know when images are uploaded to [employer]. ) Jadiel Munoz, [employer]EP[employer] ROUNDER-[employer] [Primary Care Provider] - (Can follow up with primary care once able to return home.) Discharge Diet: Cardiac Discharge Activity: Resume usual activity Activity Restrictions/Additional Instructions: -Abstain from alcohol consumption -Repeat CBC and CMP 1 week -If you have worsening shortness of breath, fevers go to the emergency room Discharge Attestations Time Spent in Discharge Care*: greater than 30 min Status at Discharge: Cognitive status at discharge: cognitively intact , Behavioral status at discharge: cooperative , Quality Metrics Clinical Quality Measures During this hospital stay, did patient experience: None Coding Level of Care Code Acute Cardiac Nurse Specialist for [facility] Diagnoses Open trimalleolar fracture of left ankle S82.545U Encounter type: initial encounter Open fracture type: open type III Acute on chronic respiratory failure with hypercapnia J96.22 Alcohol intoxication F10.929 Complication of substance-induced condition: with unspecified complication COVID-19 U07.1 CAD (coronary artery disease) I25.10 Essential (primary) hypertension I10 Morbid obesity E66.01
--- NOTE | 2020-03-27 14:42 | PC.NURSE ---
Report called to HAIM Jain at [facility] in [place], [place].
--- NOTE | 2020-03-27 17:47 | PC.NURSE ---
Patient transport with [facility] to take patient to Rehab in [place]. All belongings sent with patient including glasses, cell phone, phone accounting coordinator, clothing, etc. No questions from patient at time of discharge/transfer.
== END 2020-03-27 17:51 | disposition skilled nursing facility (03) | DRG 492 ==
LOC: ER 07:25 → ICU 08:04 → MS 2A 03-19 07:57
PROVIDERS: Internal Medicine; Orthopaedic Surgery; Student in an Organized Health Care Education/Training Program; Admitting Provider Hospitalist; Emergency Provider Emergency Medicine; PCP Nurse Practitioner; Visit Provider Family Medicine
PROC: 0QSH04Z Reposition Left Tibia with Internal Fixation Device, Open Approach (ICD-10-PCS; principal; 2020-03-17 11:30)
DX: S82.842C Displaced bimalleolar fracture of left lower leg, initial encounter for open fracture type IIIA, IIIB, or IIIC (principal); J96.22 Acute and chronic respiratory failure with hypercapnia; E87.2 Acidosis; F10.239 Alcohol dependence with withdrawal, unspecified; Z68.43 Body mass index [BMI] 50.0-59.9, adult; W18.30XA Fall on same level, unspecified, initial encounter; Z86.16 Personal history of COVID-19; J44.9 Chronic obstructive pulmonary disease, unspecified; Z99.81 Dependence on supplemental oxygen; F10.229 Alcohol dependence with intoxication, unspecified; F41.8 Other specified anxiety disorders; I25.10 Atherosclerotic heart disease of native coronary artery without angina pectoris; Z95.5 Presence of coronary angioplasty implant and graft; I10 Essential (primary) hypertension; K76.0 Fatty (change of) liver, not elsewhere classified; R16.0 Hepatomegaly, not elsewhere classified; M54.16 Radiculopathy, lumbar region; E78.2 Mixed hyperlipidemia; E66.01 Morbid (severe) obesity due to excess calories; M19.90 Unspecified osteoarthritis, unspecified site; F17.210 Nicotine dependence, cigarettes, uncomplicated; E55.9 Vitamin D deficiency, unspecified; Z98.84 Bariatric surgery status; Z96.643 Presence of artificial hip joint, bilateral; Z79.02 Long term (current) use of antithrombotics/antiplatelets; Z79.51 Long term (current) use of inhaled steroids; Z87.01 Personal history of pneumonia (recurrent); D64.9 Anemia, unspecified; G47.33 Obstructive sleep apnea (adult) (pediatric); I73.9 Peripheral vascular disease, unspecified
CPT/HCPCS: 12345; 27818; 31500; 36415; 36416; 36600; 51702; 70450; 71045; 72125; 73590; 73600; 73610; 76000; 80048; 80053; 80069; 80307; 81001; 81003; 82550; 82728; 82803; 82962; 83036; 83540; 83550; 83615; 83735; 83880; 84100; 84145; 84443; 84484; 85025; 85378; 85384; 85610; 85730; 86140; 86850; 86900; 87040; 87070; 87641; 90471; 90715; 93005; 94002; 94003; 94640; 94660; 94799; 96372; 97110; 97163; 97167; 97530; 97535; 99283; 99291; C1713; J0330; J0690; J1170; J1650; J1940; J2060; J2250; J2405; J2543; J2704; J3010; J3411; J3490; J7030; J7626

== ENCOUNTER → 2020-05-06 14:37 | Outpatient (BNVA) | payer MEDICARE, MEDICAID, SELFPAY | PROVIDERS: PCP Nurse Practitioner; Visit Provider Nurse Practitioner | DX: I10 Essential (primary) hypertension (principal); J44.9 Chronic obstructive pulmonary disease, unspecified; I25.10 Atherosclerotic heart disease of native coronary artery without angina pectoris; F41.9 Anxiety disorder, unspecified; M51.16 Intervertebral disc disorders with radiculopathy, lumbar region; F32.9 Major depressive disorder, single episode, unspecified; M79.605 Pain in left leg; F10.10 Alcohol abuse, uncomplicated | CPT/HCPCS: 80053; 85025 ==

== ENCOUNTER → 2020-05-10 10:55 | Outpatient (BNVA) | payer MEDICARE, MEDICAID, SELFPAY | PROVIDERS: PCP Nurse Practitioner; Visit Provider Nurse Practitioner | DX: M79.604 Pain in right leg (principal); L03.90 Cellulitis, unspecified | CPT/HCPCS: 85025 ==

== ENCOUNTER → 2020-05-13 11:27 | Outpatient (BNVA) | payer MEDICARE, MEDICAID, SELFPAY | PROVIDERS: PCP Nurse Practitioner; Visit Provider Nurse Practitioner | DX: S91.002A Unspecified open wound, left ankle, initial encounter (principal); D64.9 Anemia, unspecified | CPT/HCPCS: 82607; 82746; 83550 ==

== ENCOUNTER → 2020-05-20 10:48 | Outpatient (BNVA) | payer MEDICARE, MEDICAID, SELFPAY | PROVIDERS: PCP Nurse Practitioner; Visit Provider Nurse Practitioner | DX: S91.002A Unspecified open wound, left ankle, initial encounter (principal) | CPT/HCPCS: 85025 ==

== ENCOUNTER 2020-05-27 09:29 | Outpatient (CLI) | payer MEDICARE, MEDICAID, SELFPAY ==
[2020-05-27 10:00] LABS: Basophils % 0.3 %; Eosinophils # 0.2 10^3/uL (0.0-0.8); Eosinophils % 2.1 %; Hematocrit 30.3 % (37.0-47.0); Hemoglobin 8.2 g/dL (11.5-15.3); Lymphocytes # 2.2 10^3/uL (0.8-4.8); Lymphocytes % 25.4 %; Mean Corpuscular HGB Conc 27.1 g/dL (30.0-36.0); Mean Corpuscular Hemoglobin 19.9 pg (28.0-34.0); Mean Corpuscular Volume 73.5 fL (81-99); Mean Platelet Volume 9.7 fL (7.4-10.4); Monocytes # 0.9 10^3/uL (0.2-0.9); Monocytes % 9.7 %; Neutrophils # 5.44 10^3/uL (1.8-7.7); Neutrophils % 62.2 %; Nucleated Red Blood Cells % 0 %; Platelet Count 379 10^3/cmm (130-400); Red Blood Count 4.12 10^6/uL (4.1-5.3); White Blood Count 8.8 10^3/uL (4.0-10.0)
[2020-05-27 10:28] LABS: Slide Review Slide Review Perform
--- NOTE | 2020-05-27 16:41 | ONC CON_ITS ---
Dr. Elizabeth New Patient Note Patient: Zenaida Madsen Unit #: [id number]: 1960 Dicatated By: Jonnathan Elizabeth M.D.Date of Visit: May 27, 2020 Onc MED New Patient/Consult Referring Physician: Tamy Mcneal History of Present Illness: Ms. Zenaida Madsen, 60-year-old female with history of gastric bypass done in 2000 for weight reduction, as per patient during follow-up she was never informed about low hemoglobin until recently when her routine follow-up lab work-up showed progressive anemia as labs done on May 06, 2020 showed white blood count 9.3 hemoglobin 9 5 hematocrit 34.4 platelets 437,000 MCV 76.1 and repeat CBC on May 10, 2020 showed white blood count 10.6 hemoglobin 8.6 hematocrit 31.3 MCV 74.2 platelets 392,000, anemia work-up done by PMD on May 13, 2020 showed iron 18 iron saturation 4.4, TIBC 4.2, B12 173, folate more than 20, consistent with combined B12 iron deficiency anemia. Patient is complaining of progressive generalized weakness and fatigue as per patient she had a right ankle fracture due to fall subsequently developed nonhealing ulcer, which has almost resolved now and then she had a left ankle fracture again due to fall and now being monitored by orthopedics. As per patient in March 2020 she received a unit of packed RBC for generalized weakness and fatigue and severe anemia and she also underwent EGD and colonoscopy in April 2019 which showed patent JG anastomosis and grade B esophagitis., No evidence of H. pylori and colonoscopy was also unremarkable except internal hemorrhoids and 5 mm sessile polyp was removed from descending colon. Patient never received parenteral iron in the past but recently started on B12 shot Complaining of generalized weakness and fatigue, denies any history of melena or hematochezia, or hemoptysis or hematemesis, denies any jaundice, denies any palpitation or shortness of breath at rest. Denies any night sweats, denies any peripheral lymphadenopathy, denies any weight loss. Past Medical History: Ms. Madsen's medical history consists of alcohol abuse, anxiety, coronary artery disease, depression, hepatic steatosis with hepatomegaly, hyperlipidemia, hypertension, intervertebral disc disorder, lumbar radiculopathy, osteoarthritis, Vancomycin induced nephrotoxicity, vitamin D deficiency, and covid 19 in 2020. Past Surgical History: Ms. Madsen's surgical/procedural history consists of caesarean section, cholecystectomy, coronary stent placement, gastric bypass, hysterectomy, left hip replacement, and right hip replacement. Medications: 1Umeclidinium [place] 1 Inhalation (of 62.5 mcg/inh) Aerosol Powder, Breath Activated Inhalation daily, Advair Diskus 1 Inhalation (of 500-50 mcg/dose) Aerosol Powder, Breath Activated Inhalation b.i.d., Albuterol Sulfate 1 Ampule (of (2.5 mg/3ml) 0.083%) Nebulization solution Inhalation q 4 hours PRN, B Complex-Vitamin C 1 Tablet Capsule Oral daily, Carvedilol 1 Tablet (of 12.5 mg) Oral b.i.d., Cholecalciferol 1 Caplet (of 125 mcg ) Capsule Oral daily, Crestor 1 Tablet (of 40 mg) Oral daily, Cyclobenzaprine HCl 1 Tablet (of 10 mg) Oral q 8 hours PRN, Cymbalta 1 Caplet (of 60 mg) Capsule Delayed Release Particles Oral b.i.d., Furosemide 1 Tablet (of 20 mg) Oral q 1 day PRN, Gabapentin (600 mg) Tablet Oral Take as Directed, hydrOXYzine HCl 1 Tablet (of 50 mg) Oral q 12 hours PRN, Lisinopril 1 Tablet (of 40 mg) Oral daily, Meclizine HCl 1 Tablet (of 25 mg) Oral b.i.d. PRN, [facility] Wound/Burn Dressing 1 Applicatorful Gel (jelly) Topical b.i.d., Plavix 1 Tablet (of 75 mg) Oral daily, Potassium Chloride ER 1 Tablet (of 8 meq) Capsule, controlled release Oral q PRN, Protonix 1 Tablet (of 40 mg) Tablet, enteric coated Oral b.i.d., Pulmicort 1 Ampule (of 1 mg/2mL) Suspension Inhalation b.i.d., traMADol HCl 1 Tablet (of 50 mg) Oral q 4 hours PRN, Ventolin HFA 1 Puff(s) (of 108 (90 base) mcg/act) Aerosol, solution Inhalation q 4 hours PRN Allergies: Ciprofloxacin HCl and Doxycycline Monohydrate. Social History: Ms. Madsen is . She is a daily smoker who smokes 0.5 packs/day. She drinks daily. She consumes 3 drinks/day 7 days/week. She has indicated exposure to the following products: cigarettes. Family History: Ms. Madsen's mother at age 58: hypertension, and stroke. Ms. Madsen has 1 brother who is alive. She has 2 sisters: 2 alive. Review Of Symptoms: Review of Systems is not available for this patient. Vital Signs: Performed on May 27, 2020 11:14: 0, 96 %, 75 /min, 18 /min, 122/60 mm(hg), and 98.0 F (LOW). Performance Status: 2 - Ambulatory/capable of all self-care, unable to perform any work activities. Up and about more than 50% of waking hours. (ECOG) Physical Examination: ENMT - No mouth sores, no thrush, no jaundice, Respiratory - Poor air entry otherwise clear, Cardiovascular - Regular rate and rhythm of heart, Abdomen - Soft, bowel sounds present, Extremities - No visible edema. Lab/Imaging: Most recent lab results are not available for this patient. Impression: Microcytic hypochromic anemia due to iron deficiency due to most likely iron malabsorption due to GJ anastomosis for weight reduction or chronic GI blood loss. Also B12 deficiency again due to malabsorption. History of gastric bypass for weight reduction in 2020 Obesity Plan: Discussed with patient regarding her labs from PMDs office which confirmed iron deficiency anemia along with a low B12 level which could be due to malabsorption due to gastric bypass and patient is already started on B12 injection, we will recommend B12 supplement every week x4 loading dose then once a month and also consider parenteral iron with Injectafer 750 mg IV weekly x2 then repeat CBC and B12 level 1 month after second dose of parenteral iron. If there is no improvement in her hemoglobin with normalization of her iron stores, then we will check her copper level as with gastric bypass surgery in some patient low copper level can cause suboptimal bone marrow response to supplements. All the side effect possible benefits associated with parenteral iron including allergic reaction, headaches were mentioned, patient accepted the treatment, will obtain approval from the insurance prior to the treatment. As for generalized weakness and fatigue is concerned most likely due to iron deficiency/B12 deficiency anemia considering her obesity, she may have underlying sleep apnea, patient was suggested to discuss with PMD regarding sleep study, if sleep apnea is confirmed, she may benefit from CPAP machine. Signed By: Jonnathan Elizabeth M.D. <<Signature on File>>
== END 2020-05-27 09:30 | disposition home or self-care (01) ==
PROVIDERS: PCP Nurse Practitioner; Visit Provider Internal Medicine Hematology & Oncology
DX: D50.9 Iron deficiency anemia, unspecified (principal); D51.9 Vitamin B12 deficiency anemia, unspecified; R53.1 Weakness; R53.83 Other fatigue; Z98.0 Intestinal bypass and anastomosis status
CPT/HCPCS: 36415; 85025; 99204

== ENCOUNTER 2020-07-01 13:15 | Outpatient (CLI) | payer MEDICARE, MEDICAID, SELFPAY ==
[2020-07-01] MEDS: ferric carboxy (IVPB) 750 MG in sodium chloride 0.9% (100 ml) 100 ML 460 MG IV (13:50)
== END 2020-07-01 13:16 | disposition home or self-care (01) ==
LOC: ONCMED 13:18
PROVIDERS: PCP Nurse Practitioner; Visit Provider Internal Medicine Hematology & Oncology
DX: D50.9 Iron deficiency anemia, unspecified (principal)
CPT/HCPCS: 96365; J1439

== ENCOUNTER → 2020-07-03 10:04 | Outpatient (BNVA) | payer MEDICARE, MEDICAID, SELFPAY | PROVIDERS: PCP Nurse Practitioner; Visit Provider Nurse Practitioner | DX: J44.9 Chronic obstructive pulmonary disease, unspecified (principal); I10 Essential (primary) hypertension; I25.10 Atherosclerotic heart disease of native coronary artery without angina pectoris; M51.16 Intervertebral disc disorders with radiculopathy, lumbar region; F41.9 Anxiety disorder, unspecified; F32.9 Major depressive disorder, single episode, unspecified; F10.10 Alcohol abuse, uncomplicated; M79.605 Pain in left leg; E55.9 Vitamin D deficiency, unspecified; E53.8 Deficiency of other specified B group vitamins | CPT/HCPCS: 80053; 82306; 85025 ==

== ENCOUNTER 2020-07-08 06:13 | Outpatient (CLI) | payer MEDICARE, MEDICAID, SELFPAY ==
[2020-07-08] MEDS: ferric carboxy (IVPB) 750 MG in sodium chloride 0.9% (100 ml) 100 ML 460 MG IV (13:40)
== END 2020-07-08 06:14 | disposition home or self-care (01) ==
LOC: ONCMED 06:15
PROVIDERS: PCP Nurse Practitioner; Visit Provider Internal Medicine Hematology & Oncology
DX: D50.9 Iron deficiency anemia, unspecified (principal)
CPT/HCPCS: 96365; J1439

== ENCOUNTER 2020-07-17 06:00 | Outpatient (RCR) | payer MEDICARE, MEDICAID, SELFPAY | END 2020-07-29 23:59 | disposition home or self-care (01) | LOC: APT 06:00 | PROVIDERS: PCP Nurse Practitioner; Referring Provider Orthopaedic Surgery; Visit Provider Orthopaedic Surgery | DX: S82.892D Other fracture of left lower leg, subsequent encounter for closed fracture with routine healing (principal); X58.XXXD Exposure to other specified factors, subsequent encounter | CPT/HCPCS: 97110; 97163 ==

== ENCOUNTER 2020-07-24 12:35 | Emergency (ER) | payer MEDICARE, MEDICAID, SELFPAY ==
[2020-07-24 12:41] VITALS: BP 116/75; PULSE 75; RESP 18; TEMP 36.6; O2SAT 100; BMI 48.5
== END 2020-07-24 14:35 | disposition left against medical advice (07) ==
LOC: ER 12:50
PROVIDERS: Emergency Provider Family Medicine; PCP Nurse Practitioner
DX: Z53.21 Procedure and treatment not carried out due to patient leaving prior to being seen by health care provider (principal)
CPT/HCPCS: 99282

== ENCOUNTER 2020-07-24 15:09 | Outpatient (CLI) | payer MEDICARE, MEDICAID, SELFPAY ==
[2020-07-24 15:50] LABS: Basophils # 0.1 10^3/uL (0.0-0.1); Basophils % 0.6 %; Eosinophils # 0.2 10^3/uL (0.0-0.8); Eosinophils % 2.2 %; Hematocrit 42.3 % (37.0-47.0); Hemoglobin 12.3 g/dL (11.5-15.3); Lymphocytes # 2.3 10^3/uL (0.8-4.8); Lymphocytes % 27.9 %; Mean Corpuscular HGB Conc 29.1 g/dL (30.0-36.0); Mean Corpuscular Hemoglobin 24.7 pg (28.0-34.0); Mean Corpuscular Volume 85.1 fL (81-99); Mean Platelet Volume 9.9 fL (7.4-10.4); Monocytes # 0.6 10^3/uL (0.2-0.9); Monocytes % 7.2 %; Neutrophils # 5.04 10^3/uL (1.8-7.7); Nucleated Red Blood Cells % 0 %; Platelet Count 256 10^3/cmm (130-400); Red Blood Count 4.97 10^6/uL (4.1-5.3); White Blood Count 8.1 10^3/uL (4.0-10.0)
[2020-07-24 16:16] LABS: Alanine Aminotransferase 10 U/L (0-33); Albumin Level 3.9 g/dL (3.5-5.2); Alkaline Phosphatase 128 IU/L (35-105); Aspartate Amino Transferase 21 U/L (0-32); Blood Urea Nitrogen 13 mg/dL (8-23); Calcium 8.6 mg/dL (8.5-10.5); Carbon Dioxide 27 mmol/L (22-29); Chloride 105 mmol/L (98-107); Glomerular Filtration Rate 63.7 mL/min (90-130); Glucose 76 mg/dL (65-115); Osmolality Calculated 293 mOsm/kg (285-295); Sodium 142 mmol/L (136-145); Total Bilirubin 0.3 mg/dL (0.15-1.2); Total Protein 6.9 g/dL (6.6-8.7)
[2020-07-24 16:46] LABS: Add RBC Morph Yes
[2020-07-24 16:47] LABS: RBC Morph Comp No; Slide Review Slide Review Perform
[2020-07-24 16:48] LABS: Dimorphic RBC 3+; Macrocytosis 2+; Pathology Refferal No; Stomatocytes 1+
[2020-07-24 16:49] LABS: Add Urine Microscopic? YES; Bilirubin Urine Neg (Negative); Blood Urine Neg (Negative); Glucose Urine UA Norm (Normal); Ketones Urine Negative (Negative); Leukocyte Esterase Urine Negative (Negative); Nitrate Urine Negative (Negative); Protein Urine Trace (Negative); Urine Appearance Clear (CLEAR); Urine Color Yellow (Yellow); Urobilinogen Urine 4 mg/dL (Negative); pH Urine 5 (5-7)
[2020-07-24 16:50] LABS: Add Urine Culture? No; Bacteria Urine 2+ /hpf; RBC Urine 0-4 /hpf (0-2)
== END 2020-07-24 15:10 | disposition home or self-care (01) ==
PROVIDERS: PCP Nurse Practitioner; Visit Provider Nurse Practitioner
DX: E03.9 Hypothyroidism, unspecified (principal); I10 Essential (primary) hypertension; E55.9 Vitamin D deficiency, unspecified
CPT/HCPCS: 36415; 80053; 81001; 85025

== ENCOUNTER 2020-08-05 14:05 | Outpatient (CLI) | payer MEDICARE, MEDICAID, SELFPAY ==
[2020-08-05 15:54] LABS: Basophils % 0.4 %; Eosinophils # 0.3 10^3/uL (0.0-0.8); Eosinophils % 2.8 %; Hematocrit 44.2 % (37.0-47.0); Lymphocytes # 2.4 10^3/uL (0.8-4.8); Lymphocytes % 22.8 %; Mean Corpuscular HGB Conc 29.4 g/dL (30.0-36.0); Mean Corpuscular Hemoglobin 25.8 pg (28.0-34.0); Mean Corpuscular Volume 87.9 fL (81-99); Mean Platelet Volume 10.3 fL (7.4-10.4); Monocytes # 0.7 10^3/uL (0.2-0.9); Monocytes % 6.8 %; Neutrophils % 66.8 %; Nucleated Red Blood Cells % 0 %; Platelet Count 243 10^3/cmm (130-400); Red Blood Count 5.03 10^6/uL (4.1-5.3); White Blood Count 10.3 10^3/uL (4.0-10.0)
[2020-08-05 16:06] LABS: Ferritin 239 ng/mL (15-150); Iron 58 ug/dL (37-145); Percent Saturation 21.2 % (20-50); Total Iron Binding Capacity 273 mcg/dl; Unsaturated Iron Binding 215 ug/dL (112-347)
[2020-08-05 16:21] LABS: Vitamin B12 758 pg/mL (232-1245)
[2020-08-05 16:23] LABS: Slide Review Slide Review Perform
[2020-08-05 16:32] LABS: Folate Level 10.2 ng/mL (4.8-37.3)
--- NOTE | 2020-08-05 16:59 | ONC FU_ITS ---
Dr. Elizabeth follow up note Patient: Zenaida Madsen Unit #: [id number]: 1960 Dicatated By: Jonnathan Elizabeth M.D.Date of Visit:Aug 05, 2020 Onc Med Follow-up/Prog Note History of Present Illness: Ms. Zenaida Madsen, 60-year-old female with history of gastric bypass done in 2000 for weight reduction, as per patient during follow-up she was never informed about low hemoglobin until recently when her routine follow-up lab work-up showed progressive anemia as labs done on May 06, 2020 showed white blood count 9.3 hemoglobin 9 5 hematocrit 34.4 platelets 437,000 MCV 76.1 and repeat CBC on May 10, 2020 showed white blood count 10.6 hemoglobin 8.6 hematocrit 31.3 MCV 74.2 platelets 392,000, anemia work-up done by PMD on May 13, 2020 showed iron 18 iron saturation 4.4, TIBC 4.2, B12 173, folate more than 20, consistent with combined B12 iron deficiency anemia. Patient is complaining of progressive generalized weakness and fatigue as per patient she had a right ankle fracture due to fall subsequently developed nonhealing ulcer, which has almost resolved now and then she had a left ankle fracture again due to fall and now being monitored by orthopedics. As per patient in March 2020 she received a unit of packed RBC for generalized weakness and fatigue and severe anemia and she also underwent EGD and colonoscopy in April 2019 which showed patent JG anastomosis and grade B esophagitis., No evidence of H. pylori and colonoscopy was also unremarkable except internal hemorrhoids and 5 mm sessile polyp was removed from descending colon. Patient never received parenteral iron in the past but recently started on B12 shot Status post Injectafer 750 mg IV weekly x2 on July 01 and July 08, 2020 with excellent response, normalization of iron deficiency anemia as well as replenish iron stores Came for follow-up, denies any specific complaints, no fever chills, no nausea or vomiting, no diarrhea or constipation, no melena or hematochezia, no numbness, tolerating monthly B12 shots at home well and tolerated parenteral iron well, overall feeling much better more energetic Medications: 1Umeclidinium [place] 1 Inhalation (of 62.5 mcg/inh) Aerosol Powder, Breath Activated Inhalation daily, Advair Diskus 1 Inhalation (of 500-50 mcg/dose) Aerosol Powder, Breath Activated Inhalation b.i.d., Albuterol Sulfate 1 Ampule (of (2.5 mg/3ml) 0.083%) Nebulization solution Inhalation q 4 hours PRN, B Complex-Vitamin C 1 Tablet Capsule Oral daily, Carvedilol 1 Tablet (of 12.5 mg) Oral b.i.d., Cholecalciferol 1 Caplet (of 125 mcg ) Capsule Oral daily, Crestor 1 Tablet (of 40 mg) Oral daily, Cyclobenzaprine HCl 1 Tablet (of 10 mg) Oral q 8 hours PRN, Cymbalta 1 Caplet (of 60 mg) Capsule Delayed Release Particles Oral b.i.d., Furosemide 1 Tablet (of 20 mg) Oral q 1 day PRN, Gabapentin (600 mg) Tablet Oral Take as Directed, hydrOXYzine HCl 1 Tablet (of 50 mg) Oral q 12 hours PRN, Lisinopril 1 Tablet (of 40 mg) Oral daily, Meclizine HCl 1 Tablet (of 25 mg) Oral b.i.d. PRN, [facility] Wound/Burn Dressing 1 Applicatorful Gel (jelly) Topical b.i.d., Plavix 1 Tablet (of 75 mg) Oral daily, Potassium Chloride ER 1 Tablet (of 8 meq) Capsule, controlled release Oral q PRN, Protonix 1 Tablet (of 40 mg) Tablet, enteric coated Oral b.i.d., Pulmicort 1 Ampule (of 1 mg/2mL) Suspension Inhalation b.i.d., traMADol HCl 1 Tablet (of 50 mg) Oral q 4 hours PRN, Ventolin HFA 1 Puff(s) (of 108 (90 base) mcg/act) Aerosol, solution Inhalation q 4 hours PRN Allergies: Ciprofloxacin HCl and Doxycycline Monohydrate. Review of Systems: Review of Systems is not available for this patient. Vital Signs: Performed on Aug 05, 2020 16:16 Temperature - 97.0 F (LOW) Pulse - 95 /min Respiration - 18 /min BP - 131/68 mm(hg) O2 Sat - 95 % (LOW) Pain - 4 Fatigue - 0 Performance Status: 1 - No physically strenuous activity, but ambulatory and able to carry out light or sedentary work (e.g. office work, light house work). (ECOG) Physical Examination: ENMT - No mouth sores, no thrush, no jaundice, Respiratory - Poor air entry otherwise clear, Cardiovascular - Regular rate and rhythm of heart, Abdomen - Soft, bowel sounds present, Extremities - No visible edema. Lab/Imaging: Test performed on May 27, 2020 09:47 WBC 8.8 10 3/uL RBC 4.12 10 6/uL HGB 8.2 g/dL HCT 30.3 % MCV 73.5 fL MCH 19.9 pg MCHC 27.1 g/dL RDW 22.0 % Platelet Count 379 10 3/cmm MPV 9.7 fL Neutrophils 5.44 10 3/uL Lymphocytes 2.2 10 3/uL Monocytes 0.9 10 3/uL Eosinophils 0.2 10 3/uL Basophils 0.0 10 3/uL Neutrophil % 62.2 % Lymphocyte % 25.4 % Monocyte % 9.7 % Eosinophil % 2.1 % Basophils % 0.3 % NRBC % 0 % CBC Slide Review Slide Review Perform REVIEW AGREES WITH AUTOMATED DIFF Impression: Microcytic hypochromic anemia due to iron deficiency due to most likely iron malabsorption due to GJ anastomosis for weight reduction or chronic GI blood loss. Also B12 deficiency again due to malabsorption. History of gastric bypass for weight reduction in 2020 Status post Injectafer 750 mg IV weekly x2 in June 2020 with excellent response, Normalization of anemia, hemoglobin 13 g on August 05, 2020 compared to 8.2 g prior to infusion Obesity Plan: Discussed with patient regarding her labs white blood count 10.3 hemoglobin 13 g hematocrit 44.2 platelets 243,000, iron saturation 21.2%, ferritin 239, iron 58, B12 758 Clinically, patient doing well with no new signs symptom, tolerated parenteral iron well with excellent response, hemoglobin improved to 13 g compared to 8.2 g prior to Injectafer infusion, iron studies shows adequate iron stores and normal B12 level, patient is on B12 supplement at home. No she return to clinic in 2 months with CBC and iron studies. Signed By: Jonnathan Elizabeth M.D. <<Signature on File>>
== END 2020-08-05 14:06 | disposition home or self-care (01) ==
PROVIDERS: PCP Nurse Practitioner; Visit Provider Internal Medicine Hematology & Oncology
DX: D50.9 Iron deficiency anemia, unspecified (principal); E55.9 Vitamin D deficiency, unspecified; Z98.84 Bariatric surgery status; E66.9 Obesity, unspecified; Z79.899 Other long term (current) drug therapy
CPT/HCPCS: 36415; 82607; 82728; 82746; 83540; 83550; 85025; 99214

== ENCOUNTER 2020-09-05 13:56 | Outpatient (CLI) | payer MEDICARE, MEDICAID, SELFPAY ==
[2020-09-05 14:54] LABS: Basophils % 0.4 %; Eosinophils # 0.2 10^3/uL (0.0-0.8); Eosinophils % 2.2 %; Hematocrit 45.5 % (37.0-47.0); Hemoglobin 13.9 g/dL (11.5-15.3); Lymphocytes # 1.9 10^3/uL (0.8-4.8); Lymphocytes % 19.5 %; Mean Corpuscular HGB Conc 30.5 g/dL (30.0-36.0); Mean Corpuscular Hemoglobin 28.4 pg (28.0-34.0); Monocytes # 0.7 10^3/uL (0.2-0.9); Monocytes % 6.6 %; Neutrophils # 6.95 10^3/uL (1.8-7.7); Neutrophils % 71.1 %; Nucleated Red Blood Cells % 0 %; Platelet Count 240 10^3/cmm (130-400); Red Blood Count 4.89 10^6/uL (4.1-5.3); White Blood Count 9.8 10^3/uL (4.0-10.0)
[2020-09-05 15:10] LABS: Ferritin 140 ng/mL (15-150); Iron 81 ug/dL (37-145); Percent Saturation 31.3 % (20-50); Total Iron Binding Capacity 258 mcg/dl; Unsaturated Iron Binding 177 ug/dL (112-347)
[2020-09-05 15:20] LABS: Slide Review Slide Review Perform
--- NOTE | 2020-09-15 17:39 | ONC FU_ITS ---
Dr. Elizabeth follow up note Patient: Zenaida Madsen Unit #: [id number]: 1960 Dicatated By: Jonnathan Elizabeth M.D.Date of Visit:Sep 05, 2020 Onc Med Follow-up/Prog Note History of Present Illness: Ms. Zenaida Madsen, 60-year-old female with history of gastric bypass done in 2000 for weight reduction, as per patient during follow-up she was never informed about low hemoglobin until recently when her routine follow-up lab work-up showed progressive anemia as labs done on May 06, 2020 showed white blood count 9.3 hemoglobin 9 5 hematocrit 34.4 platelets 437,000 MCV 76.1 and repeat CBC on May 10, 2020 showed white blood count 10.6 hemoglobin 8.6 hematocrit 31.3 MCV 74.2 platelets 392,000, anemia work-up done by PMD on May 13, 2020 showed iron 18 iron saturation 4.4, TIBC 4.2, B12 173, folate more than 20, consistent with combined B12 iron deficiency anemia. Patient is complaining of progressive generalized weakness and fatigue as per patient she had a right ankle fracture due to fall subsequently developed nonhealing ulcer, which has almost resolved now and then she had a left ankle fracture again due to fall and now being monitored by orthopedics. As per patient in March 2020 she received a unit of packed RBC for generalized weakness and fatigue and severe anemia and she also underwent EGD and colonoscopy in April 2019 which showed patent JG anastomosis and grade B esophagitis., No evidence of H. pylori and colonoscopy was also unremarkable except internal hemorrhoids and 5 mm sessile polyp was removed from descending colon. Patient never received parenteral iron in the past but recently started on B12 shot Status post Injectafer 750 mg IV weekly x2 on July 01 and July 08, 2020 with excellent response, normalization of iron deficiency anemia as well as replenish iron stores Came for follow-up, denies any specific complaints, no fever chills, no nausea or vomiting, no diarrhea or constipation, no shortness of breath, no palpitation, Medications: 1Umeclidinium [place] 1 Inhalation (of 62.5 mcg/inh) Aerosol Powder, Breath Activated Inhalation daily, Advair Diskus 1 Inhalation (of 500-50 mcg/dose) Aerosol Powder, Breath Activated Inhalation b.i.d., Albuterol Sulfate 1 Ampule (of (2.5 mg/3ml) 0.083%) Nebulization solution Inhalation q 4 hours PRN, B Complex-Vitamin C 1 Tablet Capsule Oral daily, Carvedilol 1 Tablet (of 12.5 mg) Oral b.i.d., Cholecalciferol 1 Caplet (of 125 mcg ) Capsule Oral daily, Crestor 1 Tablet (of 40 mg) Oral daily, Cyclobenzaprine HCl 1 Tablet (of 10 mg) Oral q 8 hours PRN, Cymbalta 1 Caplet (of 60 mg) Capsule Delayed Release Particles Oral b.i.d., Furosemide 1 Tablet (of 20 mg) Oral q 1 day PRN, Gabapentin (600 mg) Tablet Oral Take as Directed, hydrOXYzine HCl 1 Tablet (of 50 mg) Oral q 12 hours PRN, Lisinopril 1 Tablet (of 40 mg) Oral daily, Meclizine HCl 1 Tablet (of 25 mg) Oral b.i.d. PRN, [facility] Wound/Burn Dressing 1 Applicatorful Gel (jelly) Topical b.i.d., Plavix 1 Tablet (of 75 mg) Oral daily, Potassium Chloride ER 1 Tablet (of 8 meq) Capsule, controlled release Oral q PRN, Protonix 1 Tablet (of 40 mg) Tablet, enteric coated Oral b.i.d., Pulmicort 1 Ampule (of 1 mg/2mL) Suspension Inhalation b.i.d., traMADol HCl 1 Tablet (of 50 mg) Oral q 4 hours PRN, Ventolin HFA 1 Puff(s) (of 108 (90 base) mcg/act) Aerosol, solution Inhalation q 4 hours PRN Allergies: Ciprofloxacin HCl and Doxycycline Monohydrate. Review of Systems: Review of Systems is not available for this patient. Vital Signs: Performed on Sep 05, 2020 16:15 Weight - 275 lbs (HIGH) BSA - 0.00 sq.m BMI - 0.00 Temperature - 97.2 F (LOW) Pulse - 98 /min Respiration - 18 /min BP - 143/88 mm(hg) (HIGH) O2 Sat - 96 % Pain - 3 Fatigue - 4 Performance Status: 0 - Fully active, able to carry on all predisease activities without restrictions. (ECOG) Physical Examination: ENMT - No mouth sores, no thrush, no jaundice, Respiratory - Lungs are clear to auscultation, Cardiovascular - Regular rate and rhythm of heart, Abdomen - Soft, bowel sounds present, Extremities - No visible edema. Lab/Imaging: Test performed on May 27, 2020 09:47 WBC 8.8 10 3/uL RBC 4.12 10 6/uL HGB 8.2 g/dL HCT 30.3 % MCV 73.5 fL MCH 19.9 pg MCHC 27.1 g/dL RDW 22.0 % Platelet Count 379 10 3/cmm MPV 9.7 fL Neutrophils 5.44 10 3/uL Lymphocytes 2.2 10 3/uL Monocytes 0.9 10 3/uL Eosinophils 0.2 10 3/uL Basophils 0.0 10 3/uL Neutrophil % 62.2 % Lymphocyte % 25.4 % Monocyte % 9.7 % Eosinophil % 2.1 % Basophils % 0.3 % NRBC % 0 % CBC Slide Review Slide Review Perform REVIEW AGREES WITH AUTOMATED DIFF Impression: Microcytic hypochromic anemia due to iron deficiency due to most likely iron malabsorption due to GJ anastomosis for weight reduction or chronic GI blood loss. Also B12 deficiency again due to malabsorption. History of gastric bypass for weight reduction in 2020 Status post Injectafer 750 mg IV weekly x2 in June 2020 with excellent response, Normalization of anemia, hemoglobin 13 g on August 05, 2020 compared to 8.2 g prior to infusion Obesity Plan: Discussed with patient regarding her labs white blood count 9.8 hemoglobin 13.9 hematocrit 45.5 platelets 240,000, iron studies shows iron saturation 31.3% compared to 21.2% previously after Injectafer infusion, ferritin 140 compared to 239 previously iron 81 Clinically, patient is doing well with no new signs symptoms or follow-up labs shows hemoglobin normal range but there is a progressive drop in her iron stores e.g. ferritin is 140 compared to 239 previously after the Injectafer infusion, will continue to monitor also suggest changing B12 supplement to 1000 mcg parenteral every other month. Return to clinic in 3 months with CBC and iron studies Signed By: Jonnathan Elizabeth M.D. <<Signature on File>>
== END 2020-09-05 13:57 | disposition home or self-care (01) ==
PROVIDERS: PCP Nurse Practitioner; Visit Provider Internal Medicine Hematology & Oncology
DX: D50.9 Iron deficiency anemia, unspecified (principal); Z98.84 Bariatric surgery status; E66.9 Obesity, unspecified; Z79.899 Other long term (current) drug therapy
CPT/HCPCS: 36415; 82728; 83540; 83550; 85025; 99214

== ENCOUNTER 2020-09-17 13:46 | Emergency (ER) | payer MEDICARE, MEDICAID, SELFPAY ==
[2020-09-17 13:58] VITALS: BP 137/65; PULSE 85; RESP 20; TEMP 36.8; O2SAT 97; BMI 46.8
[2020-09-17 14:20] VITALS: BP 137/65; PULSE 85; O2SAT 96
--- NOTE | 2020-09-17 14:24 | XRR_ITS ---
PROCEDURE INFORMATION: Exam: XR Chest Exam date and time: 09/17/2020 2:24 PM Age: 60 years old Clinical indication: Cough and shortness of breath; Additional info: Dyspnea/chest pain TECHNIQUE: Imaging protocol: XR of the chest. Views: 1 view. COMPARISON: CR XR chest 1V portable [id number] 03/22/2020 5:37 AM FINDINGS: Lungs: Please see pleural spaces section. Pleural spaces: Mild to moderate volume right pleural effusion with corresponding opacification at the right lung base. Heart/Mediastinum: Unremarkable. No cardiomegaly. Bones/joints: Mild bilateral DJD of the acromioclavicular joints. XR/XR chest 1V portable [id number] IMPRESSION: Mild to moderate volume right pleural effusion with opacification at the right lung base new from most recent comparison 03/22/2020. Nonemergent radiographic follow-up recommended to ensure resolution.
--- NOTE | 2020-09-17 14:24 | ECG_ITS ---
[facility] Test Date: 2020-09-17 Pat Name: Zenaida Madsen Department: Room: Gender: Female [employer]ter: : 1960 Requested By: Cristo Bales Order Number: [id number] Korey MD: Monik Joyce M.D. Measurements Intervals Louise Rate: 86 P: TN: QRS: 44 QRSD: 84 T: 42 QT: 362 QTc: 435 Interpretive Statements SINUS RHYTHM LOW QRS VOLTAGE IN PRECORDIAL LEADS [QRS DEFLECTION < 1.0 mV IN CHEST LEADS] Baseline artifact Compared to ECG 03/17/2020 14:38:23 Low QRS voltage now present Electronically Signed On 09-17-2020 16:42:48 CDT by Monik Joyce M.D. [email or web address]
--- NOTE | 2020-09-17 14:38 | USCV_ITS ---
Zenaida Madsen Age: 60 Gender: F : 1960 Exam Date: 09/17/2020 15:05 Ordering Phys: Cristo Jenkins DO Technologist: Zenaida Rojo Exam Location: [facility] [place]_ Indication: BLE SWELLING AND PAIN HISTORY: Lower extremity swelling. Lower extremity pain. PROCEDURES: Venous duplex imaging was performed in bilateral lower extremities. The following venous structures were evaluated: common femoral vein, profunda vein, proximal portion of the greater saphenous vein, superficial femoral vein, and the popliteal vein. In addition, the posterior tibial and peroneal trunk were evaluated. Serial compression, augmentation maneuvers, and spectral Doppler flow evaluation were performed. FINDINGS: Examination was technically limited due to body habitus. Normal 2-D Doppler and augmentation and compressibility throughout the lower extremity venous structures. Additional imaging through the proximal calf veins also reveals no thrombus. Limited evaluation of the greater saphenous vein is patent with no thrombus. CONCLUSIONS No DVT bilateral lower extremities. Dr. Caryl Garcia DO (Electronically Signed) Final Date: 17 September 2020 15:19 S
--- NOTE | 2020-09-17 14:43 | ED_ITS ---
HPI - Chest Pain General: Chief Complaint: Chest Pain Stated Complaint: COUGH/ SOB/ CHEST TIGHTNESS/ LEG PAIN Time Seen by Provider: 09/17/20 13:58 History of Present Illness: HPI narrative: 60-year-old female presents emergency room planing of chest tightness and difficulty breathing mostly discomfort in the right side of the chest. Patient also states she has a discomfort in the right upper quadrant of her abdomen that kind of comes and goes. She is had recently had some leg fracture she currently has her left foot in a postop shoe cam walker she has been on that for several weeks. She has some redness on the left calf and discomfort bilaterally in the calves she is not taking any anticoagulants she is on clopidogrel she has a history of heart disease with previous stent. She not noticed the pain associated with particular activities. MD complaint: chest pain Onset (ago): day(s) Timing of current episode: episodic Prior episodes: Yes Onset: during rest Pain location: substernal Pain radiation: none Severity: mild Quality: heaviness Relieving factors: nothing Exacerbating factors: nothing Associated symptoms: Deny no associated symptoms, abdominal pain, diaphoresis, dyspnea, fever(s) or syncope Review of Systems Const: Denies: fever(s) or diaphoresis ENMT: Denies: throat pain, ear or mastoid pain, nasal discharge or nasal c ongestion Card: Denies: syncope Resp: Denies: dyspnea GI: Denies: abdominal pain : Denies: flank pain, difficulty voiding, dysuria, urinary frequency or urinary urgency Skin/Breast: Denies: rash or pruritus [facility] ED PFSH: Medical History Alcohol abuse Anxiety and depression CAD (coronary artery disease) has 2 stents Chronic obstructive pulmonary disease, unspecified COVID-19 (03/05/20) Essential (primary) hypertension Hepatic steatosis with hepatomegaly History of echocardiogram (03/06/20) Estimated EF 70%, normal diastolic function, normal pulmonary artery pressure, no valvular abnormality noted Intervertebral disc disorder with radiculopathy of lumbar region Low serum iron Mixed hyperlipidemia Morbid obesity BMI ~55 kg/m2 Osteoarthritis, chronic Personal history of nicotine dependence Slow transit constipation Vancomycin-induced nephrotoxicity (~06/2019) Vitamin D deficiency Surgical History H/O esophagogastroduodenoscopy (05/04/19) Status post gastric bypass with grade B esophagitis History of 2 sections History of cholecystectomy History of coronary artery stent placement History of gastric bypass History of hysterectomy History of left hip replacement History of right hip replacement S/P foot surgery, right 1) open trimalleolar fracture 05/2019 2) gangrene at operative site 06/2019 Status post colonoscopy with polypectomy (05/04/19) Descending colon polyp Family History Grandmother Hypertension Stroke Mother Hypertension Stroke Family/Other CAD (coronary artery disease) Denies family history of Diabetes Dementia Chronic kidney disease (CKD) Suicide Anesthesia complication Bleeding disorder Lung disease Cancer Social History Smoking and tobacco status: current every day smoker cigarettes Packs smoked per day: 0.5 Second hand smoke exposure: No Smoking risk assessment/counseling performed?: Yes Alcohol intake: current Alcohol intake frequency: 3 or more drinks per day Alcohol type: hard liquor Desire information about alcohol rehabilitation?: No Last alcohol use date: 06/16/19 Desire information about substance/drug rehabilitation?: No Counseling given: No Adopted: No Caregiver/support person: No Lives independently: Yes Household members: significant other Housing: House Marital status: Single Marital status details: Life partner Donny Nolen [phone] Number of children: 3 service: No Current occupational status: unemployed History of recent travel: No Current gender identity: Female Physical Exam Const: COMMON NORMALS: no acute distress GENERAL APPEARANCE: cooperative and comfortable ORIENTATION/CONSCIOUSNESS: Yes awake, Yes oriented to person, Yes oriented to place and Yes oriented to time HENMT: COMMON NORMALS: normocephalic, atraumatic and hearing grossly normal bilaterally HEAD & SCALP: normocephalic and atraumatic Neck/C-Spine: COMMON NORMALS: no JVD Resp: COMMON NORMALS: normal respiratory effort, No retractions, No use of accessory muscles and clear to auscultation bilaterally AUSCULTATION: clear to auscultation bilaterally Cardio: COMMON NORMALS: no JVD, regular rate, regular rhythm and No murmurs present (Cardio) RATE: regular rate RHYTHM: regular rhythm GI: COMMON NORMALS: Soft to palpation and No hepatosplenomegaly present AUSCULTATION: Yes normoactive bowel sounds PALPATION: Yes Soft to palpation, No Tenderness to palpation present (GI), No Guarding due to palpation present (GI) and Yes No hepatosplenomegaly present Extremity: COMMON NORMALS: normal to inspection, capillary refill normal, no clubbing, cyanosis or edema, no calf tenderness and no pedal edema Neuro: SENSORIUM/ORIENTATION: Yes oriented to person, Yes oriented to place and Yes oriented to time Skin: COMMON NORMALS: no rashes or lesions noted GENERAL SKIN EXAM: no rashes or lesions noted Course Vital Signs: Vital signs: Vital Signs Temperature 98.3 F 09/17/20 13:58 Pulse Rate 86 09/17/20 18:48 Respiratory Rate 20 H 09/17/20 13:58 Blood Pressure 147/100 09/17/20 16:00 Pulse Oximetry 96 09/17/20 18:48 MDM - Chest Pain MDM Narrative: Medical decision making narrative: Patient has had symptoms for several hours now. Her cardiac enzymes negative EKG is unremarkable. Suspect this is more related to the procedure she had yesterday. Wearing go ahead and discharge her home for now return if she has problem we will get her set up for a outpatient Lexiscan sestamibi stress test. Discussed with the patient if she has any worsening symptoms return immediately. Lab Data: Labs: Lab Results 09/17/20 09/17/20 09/17/20 Range/Units 14:38 14:38 14:38 WBC 8.4 (4.0-10.0) 10^3/ uL RBC 4.80 (4.1-5.3) 10^6/u L Hgb 14.1 (11.5-15.3) g/dL Hct 45.0 (37.0-47.0) % MCV 93.8 (81-99) fL MCH 29.4 (28.0-34.0) pg MCHC 31.3 (30.0-36.0) g/dL RDW 18.1 H (12.1-15.1) % Plt Count 196 (130-400) 10^3/c mm MPV 9.5 (7.4-10.4) fL Neut % (Auto) 66.9 % Lymph % (Auto) 22.4 % [place] % (Auto) 8.1 % Eos % (Auto) 1.8 % Baso % (Auto) 0.6 % Neut # (Auto) 5.62 (1.8-7.7) 10^3/u L Lymph # (Auto) 1.9 (0.8-4.8) 10^3/u L [place] # (Auto) 0.7 (0.2-0.9) 10^3/u L Eos # (Auto) 0.2 (0.0-0.8) 10^3/u L Baso # (Auto) 0.1 (0.0-0.1) 10^3/u L Nucleated RBC % (a uto) 0 % Nucleated RBCs # 0.0 /100WBC D-Dimer (0-0.59) ug/mIFE U Sodium 139 (136-145) mmol/L Potassium 4.8 (3.5-5.1) mmol/L Chloride 104 (98-107) mmol/L Carbon Dioxide 25 (22-29) mmol/L Anion Gap 14.8 (5-19) BUN 13 (8-23) mg/dL Creatinine 0.9 (0.5-0.9) mg/dL GFR Calculation 63.7 L (90-130) mL/min Glucose 87 (65-115) mg/dL Calculated Osmolal ity 287 (285-295) mOsm/k g Calcium 8.3 L (8.5-10.5) mg/dL Total Bilirubin 0.2 (0.15-1.2) mg/dL AST 29 (0-32) U/L ALT 12 (0-33) U/L Alkaline Phosphata se 115 H (35-105) IU/L Creatine Kinase 35 (26-192) U/L Troponin T Baselin e 11 H (0-10) ng/L Troponin T 120 Min darrel Delta Troponin T Total Protein 6.0 L (6.6-8.7) g/dL Albumin 3.3 L (3.5-5.2) g/dL Globulin 2.7 (1.3-4.6) g/dL 09/17/20 09/17/20 09/17/20 Range/Units 15:10 16:50 17:30 WBC (4.0-10.0) 10^3/ uL RBC (4.1-5.3) 10^6/u L Hgb (11.5-15.3) g/dL Hct (37.0-47.0) % MCV (81-99) fL MCH (28.0-34.0) pg MCHC (30.0-36.0) g/dL RDW (12.1-15.1) % Plt Count (130-400) 10^3/c mm MPV (7.4-10.4) fL Neut % (Auto) % Lymph % (Auto) % [place] % (Auto) % Eos % (Auto) % Baso % (Auto) % Neut # (Auto) (1.8-7.7) 10^3/u L Lymph # (Auto) (0.8-4.8) 10^3/u L [place] # (Auto) (0.2-0.9) 10^3/u L Eos # (Auto) (0.0-0.8) 10^3/u L Baso # (Auto) (0.0-0.1) 10^3/u L Nucleated RBC % (a uto) % Nucleated RBCs # /100WBC D-Dimer 0.90 H (0-0.59) ug/mIFE U Sodium (136-145) mmol/L Potassium (3.5-5.1) mmol/L Chloride (98-107) mmol/L Carbon Dioxide (22-29) mmol/L Anion Gap (5-19) BUN (8-23) mg/dL Creatinine (0.5-0.9) mg/dL GFR Calculation (90-130) mL/min Glucose (65-115) mg/dL Calculated Osmolal ity (285-295) mOsm/k g Calcium (8.5-10.5) mg/dL Total Bilirubin (0.15-1.2) mg/dL AST (0-32) U/L ALT (0-33) U/L Alkaline Phosphata se (35-105) IU/L Creatine Kinase (26-192) U/L Troponin T Baselin e (0-10) ng/L Troponin T 120 Min darrel Cancelled 9.91 Delta Troponin T Cancelled -1.09 L Total Protein (6.6-8.7) g/dL Albumin (3.5-5.2) g/dL Globulin (1.3-4.6) g/dL Discharge Plan Discharge Patient Disposition: Home Clinical Impression: Atypical chest pain, Esophagitis Condition: Stable Prescriptions: No Action (DME) lace up ankle brace See Rx Instructions .Route .MEDSUPPLY Qty: 1 RF: 0 carvedilol 25 mg tablet 12.5 mg PO BID@0900,1800 Qty: 60 RF: 2 clopidogrel [Plavix] 75 mg tablet 75 mg PO DAILY@0900 Qty: 30 RF: 2 cyclobenzaprine 10 mg tablet 10 mg PO TID PRN (Reason: Muscle Spasm) Qty: 30 RF: 2 duloxetine 60 mg capsule,delayed release(DR/EC) 60 mg PO BID@0900,1800 Qty: 60 RF: 2 furosemide [Lasix] 20 mg tablet 20 mg PO DAILY PRN (Reason: edema) Qty: 30 RF: 2 gabapentin 300 mg capsule See Rx Instructions .ROUTE .COMPLEX Qty: 150 RF: 2 hydroxyzine HCl 50 mg tablet 50 mg PO BID PRN (Reason: anxiety) Qty: 60 RF: 2 pantoprazole [Protonix] 40 mg tablet,delayed release (DR/EC) 40 mg PO BID@0900,1800 Qty: 60 RF: 2 potassium chloride 8 mEq capsule, extended release 8 meq PO DAILY@0900 Qty: 30 RF: 2 rosuvastatin 40 mg tablet 40 mg PO BEDTIME@2200 Qty: 30 RF: 2 tramadol 50 mg tablet 50 mg PO Q4H Qty: 90 RF: 2 (DME) inogen system See Rx Instructions .Route .MEDSUPPLY Qty: 1 RF: 0 albuterol sulfate 2.5 mg /3 mL (0.083 %) solution for nebulization 2.5 mg INHALATION Q4H PRN (Reason: shortness of breath or wheezing) 30 Days Qty: 75 RF: 2 (DME) Allevyn Adhesive Dressing 5 X 5 bandage See Rx Instructions .ROUTE .MEDSUPPLY Qty: 10 RF: 0 (DME) BD Luer-Nunu Syringe 3 mL 23 x 1 syringe See Rx Instructions .ROUTE .MEDSUPPLY Qty: 6 RF: 2 lisinopril 40 mg tablet 20 mg PO DAILY@0900 Qty: 30 RF: 2 albuterol sulfate [Ventolin HFA] 90 mcg/actuation HFA aerosol inhaler 1 puff inhalation Q4H.RESPIRATORY PRN (Reason: shortness of breath or wheezing) Qty: 18 RF: 2 polyethylene glycol 3350 [Miralax] 17 gram/dose powder 17 g PO DAILY Qty: 510 RF: 2 (DME) Wheelchair See Rx Instructions .ROUTE .MEDSUPPLY Qty: 1 RF: 0 meclizine 25 mg tablet 25 mg PO BID PRN (Reason: Dizziness Or Vertigo) Qty: 30 RF: 0 cholecalciferol (vitamin D3) [Vitamin D3] 125 mcg (5,000 unit) tablet 5,000 unit PO DAILY@0900 RF: 0 cyanocobalamin (vitamin B-12) 1,000 mcg/mL solution 1,000 mcg IM Q30D RF: 0 Advair Diskus 500-50 mcg/dose blister with device 1 ea inhalation BID RF: 0 Discharge Orders: Discharge ED (Routine); Ordered 09/17/20 Ordered By: Cristo Jenkins Referrals: Jadiel Munoz, RESIDENT PROGRAM SPECIALIST-C [Primary Care Provider] - Patient Instructions: Opioid Safety Coding Level of Care Code ED [employer]ilities Operator for Chg Fwd Exam Comprehensive
[2020-09-17 14:45] LABS: Basophils # 0.1 10^3/uL (0.0-0.1); Basophils % 0.6 %; Eosinophils # 0.2 10^3/uL (0.0-0.8); Eosinophils % 1.8 %; Hemoglobin 14.1 g/dL (11.5-15.3); Lymphocytes # 1.9 10^3/uL (0.8-4.8); Lymphocytes % 22.4 %; Mean Corpuscular HGB Conc 31.3 g/dL (30.0-36.0); Mean Corpuscular Hemoglobin 29.4 pg (28.0-34.0); Mean Corpuscular Volume 93.8 fL (81-99); Mean Platelet Volume 9.5 fL (7.4-10.4); Monocytes # 0.7 10^3/uL (0.2-0.9); Monocytes % 8.1 %; Neutrophils # 5.62 10^3/uL (1.8-7.7); Neutrophils % 66.9 %; Nucleated Red Blood Cells % 0 %; Platelet Count 196 10^3/cmm (130-400); Red Cell Distribution Width 18.1 % (12.1-15.1); White Blood Count 8.4 10^3/uL (4.0-10.0)
[2020-09-17 15:03] VITALS: BP 133/78; PULSE 82; O2SAT 98
[2020-09-17 15:04] LABS: Troponin(5th) Baseline 11 ng/L (0-10)
[2020-09-17 15:05] LABS: Alanine Aminotransferase 12 U/L (0-33); Albumin Level 3.3 g/dL (3.5-5.2); Alkaline Phosphatase 115 IU/L (35-105); Blood Urea Nitrogen 13 mg/dL (8-23); Calcium 8.3 mg/dL (8.5-10.5); Carbon Dioxide 25 mmol/L (22-29); Chloride 104 mmol/L (98-107); Creatine Phosphokinase 35 U/L (26-192); Globulin 2.7 g/dL (1.3-4.6); Glomerular Filtration Rate 63.7 mL/min (90-130); Glucose 87 mg/dL (65-115); Osmolality Calculated 287 mOsm/kg (285-295); Sodium 139 mmol/L (136-145); Total Bilirubin 0.2 mg/dL (0.15-1.2)
[2020-09-17 15:17] LABS: Anion Gap 14.8 (5-19); Aspartate Amino Transferase 29 U/L (0-32); Potassium 4.8 mmol/L (3.5-5.1)
[2020-09-17 16:00] VITALS: BP 147/100; PULSE 86; O2SAT 95
--- NOTE | 2020-09-17 16:24 | ECG_ITS ---
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 Measurements Intervals [place] Rate: 78 P: 71 [place]: 183 QRS: 36 QRSD: 84 T: 43 QT: 381 QTc: 435 Interpretive Statements SINUS RHYTHM LOW QRS VOLTAGE IN PRECORDIAL LEADS [QRS DEFLECTION < 1.0 mV IN CHEST LEADS] Compared to ECG 09/17/2020 13:56:29 No significant changes Electronically Signed On 09-18-2020 9:27:44 CDT by Monik Joyce M.D. [id number]
[2020-09-17 18:00] VITALS: PULSE 86; O2SAT 96
[2020-09-17 18:06] LABS: Troponin 5 2HR 9.91 ng/L (0-10)
[2020-09-17 18:17] LABS: Troponin 5 2HR Delta -1.09 ABS# (0-10)
[2020-09-17 18:48] VITALS: PULSE 86; O2SAT 96
--- NOTE | 2020-09-19 10:21 | DCPLANNER ---
Addendum entered by Alea Munoz 09/20/20 12:11: Patient has an out patient stress test scheduled for September at 9:15. Centralized scheduling will call patient with appointment information. Original Note: sales team manager had message to schedule an outpatient stress test for patient. sales team manager faxed order for stress test to centralized scheduling. Centralized scheduling will call patient to schedule the stress test. sales team manager will call for appointment information.
--- NOTE | 2020-09-21 13:39 | PC.NURSE ---
Critical Sputum positive MRSA reported to Dr. Jenkins.
--- NOTE | 2020-10-18 13:34 | DCPLANNER ---
Patient had an outpatient stress test scheduled for 10.10.21 - patient did attend appointment.
== END 2020-09-17 18:49 | disposition home or self-care (01) ==
PROVIDERS: Emergency Provider Family Medicine; PCP Nurse Practitioner
DX: R07.89 Other chest pain (principal); K20.90 Esophagitis, unspecified without bleeding; I25.10 Atherosclerotic heart disease of native coronary artery without angina pectoris; J44.9 Chronic obstructive pulmonary disease, unspecified; I10 Essential (primary) hypertension; E78.2 Mixed hyperlipidemia; E66.01 Morbid (severe) obesity due to excess calories; Z68.42 Body mass index [BMI] 45.0-49.9, adult; F17.210 Nicotine dependence, cigarettes, uncomplicated; Z86.16 Personal history of COVID-19
CPT/HCPCS: 36415; 71045; 80053; 82550; 84484; 85025; 85378; 87070; 87077; 87186; 87205; 93005; 93970; 99284

== ENCOUNTER 2020-09-21 15:16 | Emergency (ER) | payer MEDICARE, MEDICAID, SELFPAY ==
[2020-09-21 15:49] VITALS: BP 122/70; PULSE 96; RESP 20; TEMP 37.4; O2SAT 97; BMI 46.8
--- NOTE | 2020-09-21 16:08 | ECG_ITS ---
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 Measurements Intervals [place] Rate: 93 P: 72 [place]: 165 QRS: 23 QRSD: 81 T: 35 QT: 347 QTc: 433 Interpretive Statements SINUS RHYTHM LOW QRS VOLTAGE IN PRECORDIAL LEADS [QRS DEFLECTION < 1.0 mV IN CHEST LEADS] NONSPECIFIC T-WAVE ABNORMALITY Compared to ECG 09/17/2020 17:03:03 T-wave abnormality now present Electronically Signed On 09-22-2020 18:20:35 CDT by Monik Joyce M.D. [id number]
--- NOTE | 2020-09-21 16:08 | XRR_ITS ---
PROCEDURE INFORMATION: Exam: XR Chest Exam date and time: 09/21/2020 4:08 PM Age: 60 years old Clinical indication: Cough and dyspnea; Additional info: Dyspnea/cough TECHNIQUE: Imaging protocol: XR of the chest. Views: 1 view. COMPARISON: CR XR chest 1V portable [id number] 09/17/2020 2:25 PM FINDINGS: Lungs: Unremarkable. No consolidation. Pleural spaces: Small right stable small right pleural effusion. Heart/Mediastinum: Unremarkable. No cardiomegaly. Bones/joints: Unremarkable. XR/XR chest 1V portable [id number] IMPRESSION: Small right stable small right pleural effusion.
[2020-09-21 16:48] LABS: Basophils # 0.1 10^3/uL (0.0-0.1); Basophils % 0.5 %; Eosinophils # 0.1 10^3/uL (0.0-0.8); Eosinophils % 1.1 %; Hematocrit 51.6 % (37.0-47.0); Hemoglobin 15.9 g/dL (11.5-15.3); Lymphocytes # 2.5 10^3/uL (0.8-4.8); Lymphocytes % 23.9 %; Mean Corpuscular HGB Conc 30.8 g/dL (30.0-36.0); Mean Corpuscular Hemoglobin 29.2 pg (28.0-34.0); Mean Corpuscular Volume 94.7 fL (81-99); Mean Platelet Volume 10.3 fL (7.4-10.4); Monocytes # 0.9 10^3/uL (0.2-0.9); Monocytes % 8.3 %; Neutrophils # 6.86 10^3/uL (1.8-7.7); Neutrophils % 65.9 %; Nucleated Red Blood Cells % 0 %; Platelet Count 230 10^3/cmm (130-400); Red Blood Count 5.45 10^6/uL (4.1-5.3); Red Cell Distribution Width 17.2 % (12.1-15.1); White Blood Count 10.4 10^3/uL (4.0-10.0)
[2020-09-21 17:03] LABS: Alanine Aminotransferase 8 U/L (0-33); Albumin Level 3.8 g/dL (3.5-5.2); Alkaline Phosphatase 133 IU/L (35-105); Aspartate Amino Transferase 17 U/L (0-32); Blood Urea Nitrogen 9 mg/dL (8-23); Calcium 9.3 mg/dL (8.5-10.5); Carbon Dioxide 28 mmol/L (22-29); Chloride 100 mmol/L (98-107); Globulin 2.9 g/dL (1.3-4.6); Glomerular Filtration Rate 72.9 mL/min (90-130); Glucose 90 mg/dL (65-115); Osmolality Calculated 286 mOsm/kg (285-295); Sodium 139 mmol/L (136-145); Total Bilirubin 0.3 mg/dL (0.15-1.2); Total Protein 6.7 g/dL (6.6-8.7)
--- NOTE | 2020-09-21 17:32 | W.ED.RECABL ---
HPI - Recheck/Abnormal Lab/Rx General: Chief Complaint: Recheck/Abnormal Lab/Rx Stated Complaint: RECHECK ON INFECTION PER JENNIFER Time Seen by Provider: 09/21/20 16:08 History of Present Illness: HPI narrative: 60-year-old female was seen earlier this week with chest discomfort after an EGD with an esophageal dilation. She had a small effusion at that time but no infiltrates. She denies any chest pain now she had a couple days of productive cough and that is resolved. We asked her to return to the emergency room after we got a sputum culture result back showing heavy MRSA. Unfortunately she is allergic to doxycycline which is when the only thing that is sensitive to orally. She states the productive cough is actually little bit better. She is chronically on oxygen at 2 L/min and is still maintaining a normal sat on that level. MD complaint: abnormal lab Initial visit (ago): day(s) Initial visit for: other (Productive cough) Description of abnormal result: Positive MRSA sputum Context: called for abnormal lab result Associated symptoms: fever, chills, chest pain, shortness of breath, rash, malaise, nausea and abdominal pain Review of Systems Const: Denies: fever(s), chills, body aches, change in appetite, fatigue or malaise ENMT: Denies: throat pain, ear or mastoid pain, nasal discharge or nasal congestion Card: Denies: chest pain, edema, dyspnea on exertion or orthopnea Resp: Reports: dyspnea and productive cough GI: Denies: abdominal pain, nausea, vomiting, hematemesis, coffee ground emesis, diarrhea, constipation, bloating, hematochezia or melena : Denies: flank pain, difficulty voiding, dysuria, urinary frequency or urinary urgency Skin/Breast: Denies: rash or pruritus [facility] ED PFSH: Medical History Alcohol abuse Anxiety and depression CAD (coronary artery disease) has 2 stents Chronic obstructive pulmonary disease, unspecified COVID-19 (03/05/20) Essential (primary) hypertension Hepatic steatosis with hepatomegaly History of echocardiogram (03/06/20) Estimated EF 70%, normal diastolic function, normal pulmonary artery pressure, no valvular abnormality noted Intervertebral disc disorder with radiculopathy of lumbar region Low serum iron Mixed hyperlipidemia Morbid obesity BMI ~55 kg/m2 Osteoarthritis, chronic Personal history of nicotine dependence Slow transit constipation Vancomycin-induced nephrotoxicity (~06/2019) Vitamin D deficiency Surgical History H/O esophagogastroduodenoscopy (05/04/19) Status post gastric bypass with grade B esophagitis History of 2 sections History of cholecystectomy History of coronary artery stent placement History of gastric bypass History of hysterectomy History of left hip replacement History of right hip replacement S/P foot surgery, right 1) open trimalleolar fracture 05/2019 2) gangrene at operative site 06/2019 Status post colonoscopy with polypectomy (05/04/19) Descending colon polyp Family History Grandmother Hypertension Stroke Mother Hypertension Stroke Family/Other CAD (coronary artery disease) Denies family history of Diabetes Dementia Chronic kidney disease (CKD) Suicide Anesthesia complication Bleeding disorder Lung disease Cancer Social History Smoking and tobacco status: current every day smoker cigarettes Packs smoked per day: 0.5 Second hand smoke exposure: No Smoking risk assessment/counseling performed?: Yes Alcohol intake: current Alcohol intake frequency: 3 or more drinks per day Alcohol type: hard liquor Desire information about alcohol rehabilitation?: No Last alcohol use date: 06/16/19 Desire information about substance/drug rehabilitation?: No Counseling given: No Adopted: No Caregiver/support person: No Lives independently: Yes Household members: significant other Housing: House Marital status: Single Marital status details: Life partner Donny Nolen [phone] Number of children: 3 service: No Current occupational status: unemployed History of recent travel: No Current gender identity: Female Physical Exam Const: COMMON NORMALS: no acute distress GENERAL APPEARANCE: cooperative and comfortable ORIENTATION/CONSCIOUSNESS: Yes awake, Yes oriented to person, Yes oriented to place and Yes oriented to time HENMT: COMMON NORMALS: normocephalic, atraumatic and hearing grossly normal bilaterally HEAD & SCALP: normocephalic and atraumatic Neck/C-Spine: COMMON NORMALS: no JVD Resp: COMMON NORMALS: normal respiratory effort, No retractions and No use of accessory muscles AUSCULTATION: rales on the right and wheezes Cardio: COMMON NORMALS: no JVD, regular rate, regular rhythm and No murmurs present (Cardio) RATE: regular rate RHYTHM: regular rhythm GI: COMMON NORMALS: Soft to palpation and No hepatosplenomegaly present AUSCULTATION: Yes normoactive bowel sounds PALPATION: Yes Soft to palpation, No Tenderness to palpation present (GI), No Guarding due to palpation present (GI) and Yes No hepatosplenomegaly present Extremity: COMMON NORMALS: normal to inspection, capillary refill normal, no clubbing, cyanosis or edema, no calf tenderness and no pedal edema Neuro: SENSORIUM/ORIENTATION: Yes oriented to person, Yes oriented to place and Yes oriented to time Skin: COMMON NORMALS: no rashes or lesions noted GENERAL SKIN EXAM: no rashes or lesions noted Course Vital Signs: Vital signs: Vital Signs Temperature 99.4 F 09/21/20 15:49 Pulse Rate 100 09/21/20 18:55 Respiratory Rate 17 09/21/20 18:55 Blood Pressure 129/96 09/21/20 18:55 Pulse Oximetry 96 09/21/20 18:55 MDM - Recheck/Abnormal Lab/Rx MDM Narrative: Medical decision making narrative: Right pleural effusion is persistent. Patient positive sputum culture but is not significantly symptomatic at this time actually her cough shortness of breath and productive sputum have decreased. put her on linezolid and when and set her up to see the cleaner and presser as an outpatient to follow-up with the pleural effusion as well as with see sputum culture if has any worsening or change return to be reevaluated. Lab Data: Labs: Lab Results 09/21/20 09/21/20 Range/Units 16:20 16:20 WBC 10.4 H (4.0-10.0) 10^3/ uL RBC 5.45 H (4.1-5.3) 10^6/u L Hgb 15.9 H (11.5-15.3) g/dL Hct 51.6 H (37.0-47.0) % MCV 94.7 (81-99) fL MCH 29.2 (28.0-34.0) pg MCHC 30.8 (30.0-36.0) g/dL RDW 17.2 H (12.1-15.1) % Plt Count 230 (130-400) 10^3/c mm MPV 10.3 (7.4-10.4) fL Neut % (Auto) 65.9 % Lymph % (Auto) 23.9 % [place] % (Auto) 8.3 % Eos % (Auto) 1.1 % Baso % (Auto) 0.5 % Neut # (Auto) 6.86 (1.8-7.7) 10^3/u L Lymph # (Auto) 2.5 (0.8-4.8) 10^3/u L [place] # (Auto) 0.9 (0.2-0.9) 10^3/u L Eos # (Auto) 0.1 (0.0-0.8) 10^3/u L Baso # (Auto) 0.1 (0.0-0.1) 10^3/u L Nucleated RBC % (a uto) 0 % Nucleated RBCs # 0.0 /100WBC Sodium 139 (136-145) mmol/L Potassium 4.0 (3.5-5.1) mmol/L Chloride 100 (98-107) mmol/L Carbon Dioxide 28 (22-29) mmol/L Anion Gap 15.0 (5-19) BUN 9 (8-23) mg/dL Creatinine 0.8 (0.5-0.9) mg/dL GFR Calculation 72.9 L (90-130) mL/min Glucose 90 (65-115) mg/dL Calculated Osmolal ity 286 (285-295) mOsm/k g Calcium 9.3 (8.5-10.5) mg/dL Total Bilirubin 0.3 (0.15-1.2) mg/dL AST 17 (0-32) U/L ALT 8 (0-33) U/L Alkaline Phosphata se 133 H (35-105) IU/L Total Protein 6.7 (6.6-8.7) g/dL Albumin 3.8 (3.5-5.2) g/dL Globulin 2.9 (1.3-4.6) g/dL Discharge Plan Discharge Patient Disposition: Home Clinical Impression: Pleural effusion on right, MRSA (methicillin resistant staph aureus) culture positive Condition: Stable Prescriptions: New linezolid 600 mg tablet 600 mg PO BID 14 Days Qty: 28 RF: 0 No Action (DME) lace up ankle brace See Rx Instructions .Route .MEDSUPPLY Qty: 1 RF: 0 carvedilol 25 mg tablet 12.5 mg PO BID@0900,1800 Qty: 60 RF: 2 clopidogrel [Plavix] 75 mg tablet 75 mg PO DAILY@0900 Qty: 30 RF: 2 cyclobenzaprine 10 mg tablet 10 mg PO TID PRN (Reason: Muscle Spasm) Qty: 30 RF: 2 duloxetine 60 mg capsule,delayed release(DR/EC) 60 mg PO BID@0900,1800 Qty: 60 RF: 2 furosemide [Lasix] 20 mg tablet 20 mg PO DAILY PRN (Reason: edema) Qty: 30 RF: 2 gabapentin 300 mg capsule See Rx Instructions .ROUTE .COMPLEX Qty: 150 RF: 2 hydroxyzine HCl 50 mg tablet 50 mg PO BID PRN (Reason: anxiety) Qty: 60 RF: 2 pantoprazole [Protonix] 40 mg tablet,delayed release (DR/EC) 40 mg PO BID@0900,1800 Qty: 60 RF: 2 potassium chloride 8 mEq capsule, extended release 8 meq PO DAILY@0900 Qty: 30 RF: 2 rosuvastatin 40 mg tablet 40 mg PO BEDTIME@2200 Qty: 30 RF: 2 tramadol 50 mg tablet 50 mg PO Q4H Qty: 90 RF: 2 (DME) inogen system See Rx Instructions .Route .MEDSUPPLY Qty: 1 RF: 0 albuterol sulfate 2.5 mg /3 mL (0.083 %) solution for nebulization 2.5 mg INHALATION Q4H PRN (Reason: shortness of breath or wheezing) 30 Days Qty: 75 RF: 2 (DME) Allevyn Adhesive Dressing 5 X 5 bandage See Rx Instructions .ROUTE .MEDSUPPLY Qty: 10 RF: 0 (DME) BD Luer-Nunu Syringe 3 mL 23 x 1 syringe See Rx Instructions .ROUTE .MEDSUPPLY Qty: 6 RF: 2 lisinopril 40 mg tablet 20 mg PO DAILY@0900 Qty: 30 RF: 2 polyethylene glycol 3350 [Miralax] 17 gram/dose powder 17 g PO DAILY Qty: 510 RF: 2 promethazine 25 mg tablet 25 mg PO Q6H PRN (Reason: nausea and vomiting) Qty: 20 RF: 0 (DME) Wheelchair See Rx Instructions .ROUTE .MEDSUPPLY Qty: 1 RF: 0 cyanocobalamin (vitamin B-12) 1,000 mcg/mL solution 1,000 mcg IM Q30D Qty: 1 RF: 0 meclizine 25 mg tablet 25 mg PO BID PRN (Reason: Dizziness Or Vertigo) Qty: 30 RF: 0 cholecalciferol (vitamin D3) [Vitamin D3] 125 mcg (5,000 unit) tablet 5,000 unit PO DAILY@0900 RF: 0 fluticasone propion-salmeterol [Advair Diskus] 500-50 mcg/dose blister with device 1 ea inhalation BID RF: 0 Preparation H Cream 1 applic CO BID PRN (Reason: Pain/DISCOMFORT) RF: 0 Incruse Ellipta 62.5 mcg/actuation Blister With Device 1 inh INHALATION DAILY RF: 0 Ventolin HFA 90 mcg/actuation HFA aerosol inhaler 1 puff inhalation Q4H PRN (Reason: shortness of breath or wheezing) RF: 0 Discharge Orders: Discharge ED (Routine); Ordered 09/21/20 Ordered By: Cristo Jenkins Referrals: Jadiel Munoz, SQL DEVELOPER DBA-C [Primary Care Provider] - Discharge Diet: Usual diet Discharge Activity: Limit activity as instructed Patient Instructions: Opioid Safety Activity Restrictions/Additional Instructions: Case management will call for a follow-up with pulmonology. If your symptoms worsen recheck. Coding Level of Care Code ED Bronze Chaser for Michael Fwira Exam Comprehensive
[2020-09-21 18:00] VITALS: BP 132/92; PULSE 89; RESP 18; O2SAT 96
[2020-09-21 18:55] VITALS: BP 129/96; PULSE 100; RESP 17; O2SAT 96
== END 2020-09-21 18:56 | disposition home or self-care (01) ==
PROVIDERS: Emergency Provider Family Medicine; PCP Nurse Practitioner
DX: J90 Pleural effusion, not elsewhere classified (principal); A49.02 Methicillin resistant Staphylococcus aureus infection, unspecified site; Z79.02 Long term (current) use of antithrombotics/antiplatelets; I25.10 Atherosclerotic heart disease of native coronary artery without angina pectoris; I10 Essential (primary) hypertension; E78.2 Mixed hyperlipidemia; F17.210 Nicotine dependence, cigarettes, uncomplicated
CPT/HCPCS: 71045; 80053; 85025; 87040; 93005; 99284

== ENCOUNTER 2020-10-09 06:00 | Outpatient (RCR) | payer MEDICARE, MEDICAID, SELFPAY | END 2020-10-29 23:59 | disposition home or self-care (01) | LOC: APT 06:00 | PROVIDERS: PCP Nurse Practitioner; Referring Provider Orthopaedic Surgery; Visit Provider Orthopaedic Surgery | DX: S82.851K Displaced trimalleolar fracture of right lower leg, subsequent encounter for closed fracture with nonunion (principal); X58.XXXD Exposure to other specified factors, subsequent encounter | CPT/HCPCS: 97110; 97140; 97163 ==

== ENCOUNTER → 2020-10-09 09:41 | Outpatient (BNVA) | payer MEDICARE, MEDICAID, SELFPAY | PROVIDERS: PCP Nurse Practitioner; Visit Provider Nurse Practitioner | DX: J90 Pleural effusion, not elsewhere classified (principal) | CPT/HCPCS: 85025 ==

== ENCOUNTER 2020-10-10 07:03 | Outpatient (CLI) | payer MEDICARE, MEDICAID, SELFPAY ==
[2020-10-10 07:11] VITALS: BMI 46.8
--- NOTE | 2020-10-10 07:40 | ECG_ITS ---
[facility] Test Date: 2020-10-10 Pat Name: Zenaida Madsen Department: Room: Gender: Female Room Cleaner: : 1960 Requested By: Cristo Blaes Order Number: [id number] Korey MD: Monik Joyce M.D. Interpretive Statements NAME OF STUDY: LEXISCAN SESTAMIBI STRESS TEST INDICATION: Atypical Chest Pain PROCEDURE: At the baseline, the blood pressure was 117/79 mmHg, oxygen saturation 95% with a heart rate of 89 bpm. The electrocardiogram showed normal sinus rhythm, normal axis. Nonspecific T wave changes. The Lexiscan was infused over a period of 20 seconds. A total of 0.4 milligrams of Lexiscan was infused. The stress phase was continued for a total of 5 minutes. Heart rate at the end of the stress phase was 100 bpm, oxygen saturation 95% with a blood pressure of 124/86 mmHg. The EKG at the peak infusion revealed no significant ST-T wave changes. The study was terminated due to protocol completion. Sestamibi was injected 20 seconds after the Lexiscan infusion. Blood pressure at the end of the recovery phase was 130/87 mmHg, oxygen saturation 95% with a heart rate of 101 beats per minute. CONCLUSION: 1. No significant EKG changes with the LexiScan infusion. 2. No LexiScan induced chest pain or cardiac arrhythmia. 3. Normal blood pressure and heart rate response. 4. Sestamibi/sestamibi perfusion scan pending; see separate report. Electronically Signed On 10-14-2020 12:27:37 CDT by Monik Joyce M.D. [id number]
--- NOTE | 2020-10-10 07:41 | NMCV_ITS ---
NM dat perf SPECT r/s* [id number] Zenaida Madsen Age: 60 Gender: F : 1960 Exam Date: 10/10/2020 08:18 Ordering Phys: Cristo Jenkins DO Technologist: MARILEE Cardona Exam Location: [facility] Indications: ATYPICAL CHEST PAIN STRESS TEST Please see separate stress test report in [facility] for full findings IMAGE PROTOCOL Rest/Stress 1 Lexiscan Day Radiopharmaceutical Dose (mCi) Administration Site Administered by Rest: Tc-99m 10.8 IV MARILEE Trotter Sestamibi Stress:Tc-99m 32.9 IV MARILEE Trotter Sestamibi Rest: 10-Oct-2020 60 Discovery 630 Stress: 10-Oct-2020 30 Discovery 630 0.4mg Lexiscan. Supine position only as patient was unable to lay prone. SPECT RESULTS Technical Quality: Good Raw Data Analysis: Breast attenuation Image Corrections: No attenuation or motion correction applied Summed Stress Score: 0 Summed Rest Score: 0 Summed Difference Score: 0 PERFUSION FINDINGS Uniform myocardial tracer uptake with no significant perfusion abnormalities FUNCTIONAL RESULTS (calculated via Gated SPECT) Stress Image LV EF (%): 85 Stress EDV (mL):53 TID: 1.1 Stress ESV (mL):8 FUNCTIONAL FINDINGS: Segmental wall motion analysis revealing no gross wall motion normalities. IMPRESSIONS Unremarkable myocardial perfusion imaging. Normal LV ejection fraction of 85%. No significant wall motion normalities. Normal LV volume. Low probability for coronary ischemia, based on the above findings Dr Aimee Pelaez MD [facility] (Electronically Signed) Final Date: 10 October 2020 19:19 S
[2020-10-10] MEDS: regadenoson 0.4 Mg/5 ml Syringe IVP (09:08)
[2020-10-10 09:34] VITALS: BP 113/70; PULSE 83
== END 2020-10-10 07:04 | disposition home or self-care (01) ==
LOC: CDL 07:07
PROVIDERS: PCP Nurse Practitioner; Visit Provider Family Medicine
DX: R07.89 Other chest pain (principal)
CPT/HCPCS: 78452; 93017; A9500; J2785

== ENCOUNTER 2020-10-30 06:00 | Outpatient (RCR) | payer MEDICARE, MEDICAID, SELFPAY | END 2020-11-28 23:59 | disposition home or self-care (01) | LOC: APT 06:00 | PROVIDERS: PCP Nurse Practitioner; Referring Provider Orthopaedic Surgery; Visit Provider Orthopaedic Surgery | DX: S82.851K Displaced trimalleolar fracture of right lower leg, subsequent encounter for closed fracture with nonunion (principal); X58.XXXD Exposure to other specified factors, subsequent encounter | CPT/HCPCS: 97110; 97140; 97164 ==

== ENCOUNTER 2020-11-05 11:46 | Emergency (ER) | payer MEDICARE, MEDICAID, SELFPAY ==
[2020-11-05] VITALS (8 sets, daily range): BP systolic 100–138; BP diastolic 65–82; PULSE 81–99; RESP 14–23; TEMP 37.2; O2SAT 96–99; BMI 46.5
--- NOTE | 2020-11-05 12:01 | W.ED.GENADLT ---
HPI - General Adult General: Chief complaint: Chest Pain Stated complaint: WEAK/ CHEST PAIN Time Seen by Provider: 11/05/20 12:00 History of Present Illness: HPI narrative: Ms. Madsen is a 60-year-old lady with significant past medical history of CAD, peripheral vascular disease, COPD who presents the emergency department due to chest pain and generalized malaise. She reports 3 to 4-day history of symptoms. She primarily noted nausea, vomiting, and diarrhea as well as generalized malaise and fatigue. She subsequently has developed cough and chest discomfort. She received nitroglycerin which improved chest discomfort associated with this. Overall the symptoms course has been worsening. The intensity is moderate to severe. She cannot think of any other specific exacerbating relieving factors. Of note, she was treated for MRSA pneumonia and felt like she was improving however is now worse again. Review of Systems General: Reports: 10 or more systems reviewed and unremarkable except in HPI and below Narrative: CONSTITUTIONAL: See HPI EYES - denies pain, denies loss of vision EARS - denies ear issues. NOSE - denies congestion or rhinorrhea. THROAT - denies sore throat or difficulty swallowing. CARDIOVASCULAR -see HPI RESPIRATORY -see HPI GASTROINTESTINAL -see HPI GENITOURINARY - denies dysuria or urinary frequency MUSCULOSKELETAL- denies deformity. See HPI SKIN - denies rashes or erythema NEUROLOGIC - denies focal weakness or sensory changes HEMATOLOGIC/LYMPHATIC - denies easy bruising or lymphadenopathy. PFS ED PFSH: Medical History Alcohol abuse Anxiety and depression CAD (coronary artery disease) has 2 stents Chronic obstructive pulmonary disease, unspecified COVID-19 (03/05/20) Essential (primary) hypertension Hepatic steatosis with hepatomegaly History of echocardiogram (03/06/20) Estimated EF 70%, normal diastolic function, normal pulmonary artery pressure, no valvular abnormality noted Intervertebral disc disorder with radiculopathy of lumbar region Low serum iron Mixed hyperlipidemia Morbid obesity BMI ~55 kg/m2 Osteoarthritis, chronic Personal history of nicotine dependence Slow transit constipation Vancomycin-induced nephrotoxicity (~06/2019) Vitamin D deficiency Surgical History H/O esophagogastroduodenoscopy (05/04/19) Status post gastric bypass with grade B esophagitis History of 2 sections History of cholecystectomy History of coronary artery stent placement History of gastric bypass History of hysterectomy History of left hip replacement History of right hip replacement S/P foot surgery, right 1) open trimalleolar fracture 05/2019 2) gangrene at operative site 06/2019 Status post colonoscopy with polypectomy (05/04/19) Descending colon polyp Family History Grandmother Hypertension Stroke Mother Hypertension Stroke Family/Other CAD (coronary artery disease) Denies family history of Diabetes Dementia Chronic kidney disease (CKD) Suicide Anesthesia complication Bleeding disorder Lung disease Cancer Social History Smoking and tobacco status: current every day smoker cigarettes Packs smoked per day: 0.5 Second hand smoke exposure: No Smoking risk assessment/counseling performed?: Yes Alcohol intake: current Alcohol intake frequency: 3 or more drinks per day Alcohol type: hard liquor Desire information about alcohol rehabilitation?: No Last alcohol use date: 06/16/19 Desire information about substance/drug rehabilitation?: No Counseling given: No Adopted: No Caregiver/support person: No Lives independently: Yes Household members: significant other Housing: House Marital status: Single Marital status details: Life partner Donny Nolen [phone] Number of children: 3 service: No Current occupational status: unemployed History of recent travel: No Current gender identity: Female Physical Exam Narrative: EXAM NARRATIVE: GENERAL/CONSTITUTIONAL -mildly ill-appearing. No acute distress. Home supplemental oxygen in place Eyes - PERRL, no conjunctival injection ENMT - Atraumatic external nose and ears. Moist mucous membranes NECK - supple. trachea midline CARDIOVASCULAR - regular rate and rhythm. Peripheral pulses 2+ and equal RESPIRATORY -somewhat coarse breath sounds to auscultation bilaterally. No retractions or accessory muscle use. ABDOMEN/GI -generalized tenderness to palpation.Nondistended. No tenderness to percussion or evidence of peritonitis MSK - Extremities without obvious deformity or tenderness to palpation SKIN - Warm, Dry NEURO - alert and appropriately oriented. strength and sensation intact. Moves all extremities equally. PSYCH - Appropriate mood and affect Course ED course: - Patient was seen and evaluated by me at bedside - Patient placed on cardiac monitors, IV access obtained - Initial evaluation notable for somewhat ill appearance, exam as noted above -Symptom treatment ordered - Labs notable for mild leukocytosis, mildly elevated creatinine. Negative delta troponin. Given squamous epithelial contamination urinalysis not concerning for urinary tract infection. - Imaging notable for Benign appearance of initial chest x-ray. Given patient's report of progressive symptoms CT imaging ordered. No significant findings to explain the patient's symptoms. - Upon serial reexamination after treatment the patient was only minimally improved - Based on patient history, evaluation, labs, and imaging as interpreted the most likely cause of the patient's condition is unclear, given increase in pleural effusion/consolidation cannot exclude possibility of recurrent pneumonia. The patient is at baseline oxygen and there is no other evidence of gross fluid overload on clinical exam. These results were discussed with the patient and she was comfortable with outpatient follow-up and oral antibiotics. - The results of ED evaluation were discussed with the patient including prescriptions and/or symptomatic cares (if applicable) including appropriate and responsible use, followup plan, and return precautions. The patient verbalized understanding and felt safe for discharge. - Patient discharged in satisfactory condition. Vital Signs: Vital signs: Vital Signs Temperature 98.9 F 11/05/20 12:00 Pulse Rate 86 11/05/20 17:17 Respiratory Rate 19 H 11/05/20 17:17 Blood Pressure 116/81 11/05/20 17:17 Pulse Oximetry 97 11/05/20 17:17 MDM - General Adult Medical Records: Attestation: I reviewed the patient's medical records. Lab Data: Attestation: I reviewed the patient's lab results. Labs: Lab Results 11/05/20 11/05/20 11/05/20 Range/Units 12:44 13:19 13:19 WBC 10.5 H (4.0-10.0) 10^3/ uL RBC 4.92 (4.1-5.3) 10^6/u L Hgb 14.4 (11.5-15.3) g/dL Hct 45.6 (37.0-47.0) % MCV 92.7 (81-99) fl MCH 29.3 (28.0-34.0) pg MCHC 31.6 (30.0-36.0) g/dL RDW 14.0 (12.1-15.1) % Plt Count 244 (130-400) 10^3/c mm MPV 10.0 (7.4-10.4) fL Neut % (Auto) 67.0 % Lymph % (Auto) 23.7 % [place] % (Auto) 7.1 % Eos % (Auto) 1.4 % Baso % (Auto) 0.4 % Neut # (Auto) 7.02 (1.8-7.7) 10^3/u L Lymph # (Auto) 2.5 (0.8-4.8) 10^3/u L [place] # (Auto) 0.8 (0.2-0.9) 10^3/u L Eos # (Auto) 0.2 (0.0-0.8) 10^3/u L Baso # (Auto) 0.0 (0.0-0.1) 10^3/u L Nucleated RBC % (a uto) 0 % Nucleated RBCs # 0.0 /100WBC D-Dimer (0-0.59) ug/mIFE U Sodium 141 (136-145) mmol/L Potassium 4.3 (3.5-5.1) mmol/L Chloride 103 (98-107) mmol/L Carbon Dioxide 26 (22-29) mmol/L Anion Gap 16.3 (5-19) BUN 11 (8-23) mg/dL Creatinine 1.1 H (0.5-0.9) mg/dL GFR Calculation 50.5 L (90-130) mL/min Glucose 77 (65-115) mg/dL Calculated Osmolal ity 290 (285-295) mOsm/k g Lactate (0.5-2.2) mmol/L Calcium 8.0 L (8.5-10.5) mg/dL Total Bilirubin 0.3 (0.15-1.2) mg/dL AST 18 (0-32) U/L ALT 7 (0-33) U/L Alkaline Phosphata se 116 H (35-105) IU/L Troponin T Baselin e (0-10) ng/L Troponin T 120 Min [place] (0-10) ng/L Delta Troponin T (0-10) ABS# NT-Pro-B Natriuret Pep 118 (0-125) pg/mL Total Protein 6.1 L (6.6-8.7) g/dL Albumin 3.2 L (3.5-5.2) g/dL Globulin 2.9 (1.3-4.6) g/dL Lipase 14 (13-60) U/L Procalcitonin 0.10 (0-0.5) ng/mL TSH 2.60 (0.27-4.20) uIU/ mL Urine Color Yellow (Yellow) Urine Appearance Cloudy (CLEAR) Urine pH 5 (5-7) Ur Specific Gravit y 1.020 (1.005-1.030) Urine Protein 1+ H (Negative) Urine Glucose (UA) Norm (Normal) Urine Ketones 1+ H (Negative) Urine Blood Neg (Negative) Urine Nitrate Negative (Negative) Urine Bilirubin Neg (Negative) Urine Urobilinogen 1 H (Negative) mg/dL Ur Leukocyte [place] Negative (Negative) Urine RBC 0-4 H (0-2) /hpf Urine WBC 5-10 H (0-5) /hpf Ur Squamous Epith Cells 25-40 H (0-5) /hpf Amorphous Sediment Not Reportable Urine Bacteria 2+ H (NONE) /hpf Hyaline Casts 0-4 H /lpf Urine Mucus Trace /hpf 11/05/20 11/05/20 11/05/20 Range/Units 13:19 13:19 13:19 WBC (4.0-10.0) 10^3/ uL RBC (4.1-5.3) 10^6/u L Hgb (11.5-15.3) g/dL Hct (37.0-47.0) % MCV (81-99) fl MCH (28.0-34.0) pg MCHC (30.0-36.0) g/dL RDW (12.1-15.1) % Plt Count (130-400) 10^3/c mm MPV (7.4-10.4) fL Neut % (Auto) % Lymph % (Auto) % [place] % (Auto) % Eos % (Auto) % Baso % (Auto) % Neut # (Auto) (1.8-7.7) 10^3/u L Lymph # (Auto) (0.8-4.8) 10^3/u L [place] # (Auto) (0.2-0.9) 10^3/u L Eos # (Auto) (0.0-0.8) 10^3/u L Baso # (Auto) (0.0-0.1) 10^3/u L Nucleated RBC % (a uto) % Nucleated RBCs # /100WBC D-Dimer 1.44 H (0-0.59) ug/mIFE U Sodium (136-145) mmol/L Potassium (3.5-5.1) mmol/L Chloride (98-107) mmol/L Carbon Dioxide (22-29) mmol/L Anion Gap (5-19) BUN (8-23) mg/dL Creatinine (0.5-0.9) mg/dL GFR Calculation (90-130) mL/min Glucose (65-115) mg/dL Calculated Osmolal ity (285-295) mOsm/k g Lactate 1.1 (0.5-2.2) mmol/L Calcium (8.5-10.5) mg/dL Total Bilirubin (0.15-1.2) mg/dL AST (0-32) U/L ALT (0-33) U/L Alkaline Phosphata se (35-105) IU/L Troponin T Baselin e 14 H (0-10) ng/L Troponin T 120 Min [place] (0-10) ng/L Delta Troponin T (0-10) ABS# NT-Pro-B Natriuret Pep (0-125) pg/mL Total Protein (6.6-8.7) g/dL Albumin (3.5-5.2) g/dL Globulin (1.3-4.6) g/dL Lipase (13-60) U/L Procalcitonin (0-0.5) ng/mL TSH (0.27-4.20) uIU/ mL Urine Color (Yellow) Urine Appearance (CLEAR) Urine pH (5-7) Ur Specific Gravit y (1.005-1.030) Urine Protein (Negative) Urine Glucose (UA) (Normal) Urine Ketones (Negative) Urine Blood (Negative) Urine Nitrate (Negative) Urine Bilirubin (Negative) Urine Urobilinogen (Negative) mg/dL Ur Leukocyte [place] (Negative) Urine RBC (0-2) /hpf Urine WBC (0-5) /hpf Ur Squamous Epith Cells (0-5) /hpf Amorphous Sediment Urine Bacteria (NONE) /hpf Hyaline Casts /lpf Urine Mucus /hpf 11/05/20 Range/Units 15:57 WBC (4.0-10.0) 10^3/ uL RBC (4.1-5.3) 10^6/u L Hgb (11.5-15.3) g/dL Hct (37.0-47.0) % MCV (81-99) fl MCH (28.0-34.0) pg MCHC (30.0-36.0) g/dL RDW (12.1-15.1) % Plt Count (130-400) 10^3/c mm MPV (7.4-10.4) fL Neut % (Auto) % Lymph % (Auto) % [place] % (Auto) % Eos % (Auto) % Baso % (Auto) % Neut # (Auto) (1.8-7.7) 10^3/u L Lymph # (Auto) (0.8-4.8) 10^3/u L [place] # (Auto) (0.2-0.9) 10^3/u L Eos # (Auto) (0.0-0.8) 10^3/u L Baso # (Auto) (0.0-0.1) 10^3/u L Nucleated RBC % (a uto) % Nucleated RBCs # /100WBC D-Dimer (0-0.59) ug/mIFE U Sodium (136-145) mmol/L Potassium (3.5-5.1) mmol/L Chloride (98-107) mmol/L Carbon Dioxide (22-29) mmol/L Anion Gap (5-19) BUN (8-23) mg/dL Creatinine (0.5-0.9) mg/dL GFR Calculation (90-130) mL/min Glucose (65-115) mg/dL Calculated Osmolal ity (285-295) mOsm/k g Lactate (0.5-2.2) mmol/L Calcium (8.5-10.5) mg/dL Total Bilirubin (0.15-1.2) mg/dL AST (0-32) U/L ALT (0-33) U/L Alkaline Phosphata se (35-105) IU/L Troponin T Baselin e (0-10) ng/L Troponin T 120 Min [place] 13.39 H (0-10) ng/L Delta Troponin T -0.61 L (0-10) ABS# NT-Pro-B Natriuret Pep (0-125) pg/mL Total Protein (6.6-8.7) g/dL Albumin (3.5-5.2) g/dL Globulin (1.3-4.6) g/dL Lipase (13-60) U/L Procalcitonin (0-0.5) ng/mL TSH (0.27-4.20) uIU/ mL Urine Color (Yellow) Urine Appearance (CLEAR) Urine pH (5-7) Ur Specific Gravit y (1.005-1.030) Urine Protein (Negative) Urine Glucose (UA) (Normal) Urine Ketones (Negative) Urine Blood (Negative) Urine Nitrate (Negative) Urine Bilirubin (Negative) Urine Urobilinogen (Negative) mg/dL Ur Leukocyte [place] (Negative) Urine RBC (0-2) /hpf Urine WBC (0-5) /hpf Ur Squamous Epith Cells (0-5) /hpf Amorphous Sediment Urine Bacteria (NONE) /hpf Hyaline Casts /lpf Urine Mucus /hpf EKG Data^: EKG 1: Attestation: I personally reviewed and interpreted this EKG as follows: EKG interpretation date: 11/05/20 EKG interpretation time: 12:35 Interpretation: Twelve-lead EKG shows a regular sinus rhythm at a rate of 79. NM interval 174, QRS duration 80, QTc 421. Normal axis. Interpretation: Sinus rhythm. Nonspecific ST segment abnormalities. Computer generated interpretation: Chest X-Ray 11/05/20 12:16 IMPRESSION: Interval worsening of right pleuroparenchymal disease. Chest/Abdomen/Pelvis CT 11/05/20 14:27 IMPRESSION: There are no acute concerning abnormalities. Radiation Dose CTDIVOL = (mGy): DLP = 3870.08~3870.08 (mGy-cm) EKG 2: Attestation: I personally reviewed and interpreted this EKG as follows: EKG interpretation date: 11/05/20 EKG interpretation time: 15:20 Prior EKG tracings: available for review Interpretation: Twelve-lead EKG shows regular sinus rhythm at a rate of 87. NM interval 170, QRS duration 83, QTc 429. Normal axis. Interpretation: Sinus rhythm. Nonspecific ST segment abnormalities. Computer generated interpretation: Chest X-Ray 11/05/20 12:16 IMPRESSION: Interval worsening of right pleuroparenchymal disease. Chest/Abdomen/Pelvis CT 11/05/20 14:27 IMPRESSION: There are no acute concerning abnormalities. Radiation Dose CTDIVOL = (mGy): DLP = 3870.08~3870.08 (mGy-cm) Discharge Plan Discharge Patient Disposition: Home Clinical Impression: Fatigue, Chest pain, Pleural effusion, Pneumonia Condition: Stable Prescriptions: New clindamycin HCl 150 mg capsule 450 mg PO Q8H 10 Days Qty: 90 RF: 0 No Action (DME) lace up ankle brace See Rx Instructions .Route .MEDSUPPLY Qty: 1 RF: 0 carvedilol 25 mg tablet 12.5 mg PO BID@0900,1800 Qty: 60 RF: 2 clopidogrel [Plavix] 75 mg tablet 75 mg PO DAILY@0900 Qty: 30 RF: 2 cyclobenzaprine 10 mg tablet 10 mg PO TID PRN (Reason: Muscle Spasm) Qty: 30 RF: 2 duloxetine 60 mg capsule,delayed release(DR/EC) 60 mg PO BID@0900,1800 Qty: 60 RF: 2 furosemide [Lasix] 20 mg tablet 20 mg PO DAILY PRN (Reason: edema) Qty: 30 RF: 2 pantoprazole [Protonix] 40 mg tablet,delayed release (DR/EC) 40 mg PO BID@0900,1800 Qty: 60 RF: 2 rosuvastatin 40 mg tablet 40 mg PO BEDTIME@2200 Qty: 30 RF: 2 tramadol 50 mg tablet 50 mg PO Q4H Qty: 90 RF: 2 (DME) inogen system See Rx Instructions .Route .MEDSUPPLY Qty: 1 RF: 0 albuterol sulfate 2.5 mg /3 mL (0.083 %) solution for nebulization 2.5 mg INHALATION Q4H PRN (Reason: shortness of breath or wheezing) 30 Days Qty: 75 RF: 2 (DME) Allevyn Adhesive Dressing 5 X 5 bandage See Rx Instructions .ROUTE .MEDSUPPLY Qty: 10 RF: 0 (DME) BD Luer-Nunu Syringe 3 mL 23 x 1 syringe See Rx Instructions .ROUTE .MEDSUPPLY Qty: 6 RF: 2 lisinopril 40 mg tablet 20 mg PO DAILY@0900 Qty: 30 RF: 2 promethazine 25 mg tablet 25 mg PO Q6H PRN (Reason: nausea and vomiting) Qty: 90 RF: 0 (DME) Wheelchair See Rx Instructions .ROUTE .MEDSUPPLY Qty: 1 RF: 0 cyanocobalamin (vitamin B-12) 1,000 mcg/mL solution 1,000 mcg IM Q30D Qty: 1 RF: 0 potassium chloride 8 mEq capsule, extended release 8 meq PO DAILY@0900 Qty: 30 RF: 1 gabapentin 300 mg capsule See Rx Instructions .ROUTE .COMPLEX Qty: 150 RF: 1 hydroxyzine HCl 50 mg tablet 50 mg PO BID PRN (Reason: anxiety) Qty: 60 RF: 1 Incruse Ellipta 62.5 mcg/actuation blister with device 1 inh INHALATION DAILY Qty: 30 RF: 2 meclizine 25 mg tablet 25 mg PO BID PRN (Reason: Dizziness Or Vertigo) Qty: 30 RF: 0 cholecalciferol (vitamin D3) [Vitamin D3] 125 mcg (5,000 unit) tablet 5,000 unit PO DAILY@0900 RF: 0 fluticasone propion-salmeterol [Advair Diskus] 500-50 mcg/dose blister with device 1 ea inhalation BID RF: 0 Hemorrhoidal Cream 1 applic NM BID PRN (Reason: Pain/DISCOMFORT) RF: 0 albuterol sulfate [Ventolin HFA] 90 mcg/actuation HFA aerosol inhaler 1 puff inhalation Q4H PRN (Reason: shortness of breath or wheezing) RF: 0 Discharge Orders: Discharge ED (Routine); Ordered 11/05/20 Ordered By: Ishmael Dobbins Referrals: Jadiel Munoz, PHOTOGRAPHIC EDITOR-C [Primary Care Provider] - Discharge Diet: Usual diet and Low Salt Discharge Activity: Resume usual activity Patient Instructions: Pleural Effusion (ED), Pneumonia (ED) Activity Restrictions/Additional Instructions: Thank you for visiting the emergency department. You were seen and evaluated for generalized malaise, chest pain, weakness. The exact cause of your symptoms is unclear however may be related to pneumonia and/or pleural effusion. Please follow-up with your primary care provider and ophthalmic technician. Please return to the emergency department for worsening of your symptoms or anything else that you are concerned about and feel needs emergency department evaluation. Coding Level of Care Code ED Security Systems Engineer for Michael Pool
--- NOTE | 2020-11-05 12:16 | ECG_ITS ---
[facility] Test Date: 2020-11-05 Pat Name: Zenaida Madsen Department: Room: Gender: Female Quick Technician: : 1960 Requested By: Ishmael Dobbins Order Number: [id number] Korey MD: Monik Joyce M.D. Measurements Intervals [place] Rate: 79 P: 53 AK: 174 QRS: 23 QRSD: 80 T: 29 QT: 386 QTc: 444 Interpretive Statements SINUS RHYTHM Compared to ECG 09/21/2020 16:32:36 T-wave abnormality no longer present Electronically Signed On 11-07-2020 9:06:18 CDT by Monik Joyce M.D. [id number]
--- NOTE | 2020-11-05 12:16 | XRR_ITS ---
PROCEDURE INFORMATION: Exam: XR Chest Exam date and time: 11/05/2020 12:16 PM Age: 60 years old Clinical indication: Cough and shortness of breath; Patient HX: --sob, chest pain, coughing x 2 months TECHNIQUE: Imaging protocol: XR of the chest. Views: 1 view. Total images: 1 COMPARISON: CR XR chest 1V portable [id number] 09/21/2020 5:08 PM FINDINGS: Lungs: Interval worsening of right pleuroparenchymal disease. Pleural spaces: No pneumothorax. Heart/Mediastinum: Heart size is stable when compared to the prior exam. Bones/joints: Osseous structures are unchanged from the prior exam. XR/XR chest 1V portable [id number] IMPRESSION: Interval worsening of right pleuroparenchymal disease.
[2020-11-05 13:26] LABS: Basophils % 0.4 %; Eosinophils # 0.2 10^3/uL (0.0-0.8); Eosinophils % 1.4 %; Hematocrit 45.6 % (37.0-47.0); Hemoglobin 14.4 g/dL (11.5-15.3); Lymphocytes # 2.5 10^3/uL (0.8-4.8); Lymphocytes % 23.7 %; Mean Corpuscular HGB Conc 31.6 g/dL (30.0-36.0); Mean Corpuscular Hemoglobin 29.3 pg (28.0-34.0); Mean Corpuscular Volume 92.7 fl (81-99); Monocytes # 0.8 10^3/uL (0.2-0.9); Monocytes % 7.1 %; Neutrophils # 7.02 10^3/uL (1.8-7.7); Nucleated Red Blood Cells % 0 %; Platelet Count 244 10^3/cmm (130-400); Red Blood Count 4.92 10^6/uL (4.1-5.3); White Blood Count 10.5 10^3/uL (4.0-10.0)
[2020-11-05 13:31] LABS: Bilirubin Urine Neg (Negative); Blood Urine Neg (Negative); Glucose Urine UA Norm (Normal); Ketones Urine 1+ (Negative); Nitrate Urine Negative (Negative); Protein Urine 1+ (Negative); Urine Appearance Cloudy (CLEAR); Urine Color Yellow (Yellow); Urobilinogen Urine 1 mg/dL (Negative); pH Urine 5 (5-7)
[2020-11-05 13:32] LABS: Add Urine Microscopic? YES; Leukocyte Esterase Urine Negative (Negative)
[2020-11-05 13:33] LABS: RBC Urine 0-4 /hpf (0-2)
[2020-11-05 13:34] LABS: Bacteria Urine 2+ /hpf; Squamous Epithelial Cell Urine 25-40 /hpf (0-5)
[2020-11-05 13:35] LABS: Add Urine Culture? No; Hyaline Casts Urine 0-4 /lpf; Mucus Urine TRACE /hpf
[2020-11-05 13:45] LABS: Lactate (Lactic Acid level) 1.1 mmol/L (0.5-2.2)
[2020-11-05 13:48] LABS: Troponin(5th) Baseline 14 ng/L (0-10)
[2020-11-05 13:56] LABS: NT Pro B Type Natriuretic Pept 118 pg/mL (0-125)
[2020-11-05 14:07] LABS: Alanine Aminotransferase 7 U/L (0-33); Albumin Level 3.2 g/dL (3.5-5.2); Alkaline Phosphatase 116 IU/L (35-105); Anion Gap 16.3 (5-19); Aspartate Amino Transferase 18 U/L (0-32); Blood Urea Nitrogen 11 mg/dL (8-23); Carbon Dioxide 26 mmol/L (22-29); Chloride 103 mmol/L (98-107); Globulin 2.9 g/dL (1.3-4.6); Glomerular Filtration Rate 50.5 mL/min (90-130); Glucose 77 mg/dL (65-115); Lipase 14 U/L (13-60); Osmolality Calculated 290 mOsm/kg (285-295); Potassium 4.3 mmol/L (3.5-5.1); Sodium 141 mmol/L (136-145); Total Bilirubin 0.3 mg/dL (0.15-1.2); Total Protein 6.1 g/dL (6.6-8.7)
[2020-11-05 14:21] LABS: D Dimer 1.44 ug/mIFEU (0-0.59)
--- NOTE | 2020-11-05 14:27 | CTR_ITS ---
PROCEDURE INFORMATION: Exam: CTA Chest With Contrast Exam date and time: 11/05/2020 2:27 PM Age: 60 years old Clinical indication: Other: Diarrhea; Abdominal pain; Generalized; Angina pectoris; Prior surgery; Surgery type: Gb, c section, gastric bypass; Patient HX: Scan x 2 poor bolus; Additional info: Ddimer elevated, n/v/d/pain TECHNIQUE: Imaging protocol: Computed tomographic angiography of the chest with contrast. 3D rendering (Not supervised by radiologist): MIP and/or 3D reconstructed images were created by the technologist. Radiation optimization: All CT scans at this facility use at least one of these dose optimization techniques: automated exposure control; mA and/or kV adjustment per patient size (includes targeted exams where dose is matched to clinical indication); or iterative reconstruction. Contrast material: VISI 320; Contrast volume: 190 ml; Contrast route: INTRAVENOUS (IV); COMPARISON: CT angio chest PE protcl [id number] 03/05/2020 3:18 PM RADIATION DOSE METRICS: Total DLP (mGy-cm): 3870.08 FINDINGS: Pulmonary arteries: Normal. No pulmonary emboli. Aorta: Unremarkable. No aortic aneurysm. No aortic dissection. Lungs: There is consolidation in the right middle and lower lobes of the lung. No dominant lung mass. Pleural spaces: There is a moderate right pleural effusion. No pneumothorax. Heart: Cardiomegaly is identified. Lymph nodes: Unremarkable. No enlarged lymph nodes. Bones/joints: Degenerative change is identified in the spine. There is no evidence for acute fracture or malalignment. Soft tissues: Unremarkable. IMPRESSION: There is no evidence for a pulmonary artery embolus. There is a moderate right pleural effusion. There is consolidation in the right middle and lower lobes of the lung consistent with atelectasis and/or pneumonia. PROCEDURE INFORMATION: Exam: CT Abdomen And Pelvis With Contrast Exam date and time: 11/05/2020 2:27 PM Age: 60 years old Clinical indication: Other: Diarrhea; Abdominal pain; Generalized; Angina pectoris; Prior surgery; Surgery type: Gb, c section, gastric bypass; Patient HX: Scan x 2 poor bolus; Additional info: Ddimer elevated, n/v/d/pain TECHNIQUE: Imaging protocol: Computed tomography of the abdomen and pelvis with contrast. Radiation optimization: All CT scans at this facility use at least one of these dose optimization techniques: automated exposure control; mA and/or kV adjustment per patient size (includes targeted exams where dose is matched to clinical indication); or iterative reconstruction. Contrast material: VISI 320; Contrast volume: 190 ml; Contrast route: INTRAVENOUS (IV); COMPARISON: CT angio chest PE protcl [id number] 03/05/2020 3:18 PM RADIATION DOSE METRICS: Total DLP (mGy-cm): 3870.08 FINDINGS: Liver: Findings consistent with fatty infiltration of the liver are identified. Gallbladder and bile ducts: There has been a cholecystectomy. Pancreas: Normal. No ductal dilation. Spleen: Normal. No splenomegaly. Adrenal glands: Normal. No mass. Kidneys and ureters: Normal. No hydronephrosis. Stomach and bowel: There has been gastric surgery. There has been bowel surgery. No bowel obstruction or wall thickening. Appendix: No evidence of appendicitis. Intraperitoneal space: Unremarkable. No free air. No significant fluid collection. Vasculature: Unremarkable. No abdominal aortic aneurysm. Lymph nodes: Unremarkable. No enlarged lymph nodes. Urinary bladder: Unremarkable as visualized. Reproductive: Unremarkable as visualized. Bones/joints: There have been bilateral hip replacements which results in streak artifact. Degenerative change is identified in the spine. There is no evidence for acute fracture or malalignment. Soft tissues: Unremarkable. CT/CT angio chest w abd pel w con IMPRESSION: There are no acute concerning abnormalities. Radiation Dose CTDIVOL = (mGy): DLP = 3870.08~3870.08 (mGy-cm)
[2020-11-05] MEDS: iodixanol 320 mg/mL 100mL Btl IV ×2 (14:45→14:55)
--- NOTE | 2020-11-05 16:07 | PC.NURSE ---
at bedside. No acute distress. Continue to monitor
[2020-11-05 16:55] LABS: Troponin 5 2HR 13.39 ng/L (0-10)
[2020-11-05 16:57] LABS: Troponin 5 2HR Delta -0.61 ABS# (0-10)
--- NOTE | 2020-11-05 16:59 | PC.NURSE ---
at bedside. Waiting for further orders.
== END 2020-11-05 17:24 | disposition home or self-care (01) ==
PROVIDERS: Emergency Provider Emergency Medicine; PCP Nurse Practitioner
DX: R07.9 Chest pain, unspecified (principal); R53.83 Other fatigue; J44.0 Chronic obstructive pulmonary disease with (acute) lower respiratory infection; J18.9 Pneumonia, unspecified organism; J90 Pleural effusion, not elsewhere classified; Z79.02 Long term (current) use of antithrombotics/antiplatelets; I25.10 Atherosclerotic heart disease of native coronary artery without angina pectoris; I10 Essential (primary) hypertension; E78.2 Mixed hyperlipidemia; F17.210 Nicotine dependence, cigarettes, uncomplicated
CPT/HCPCS: 71045; 71275; 74177; 80053; 81001; 83605; 83690; 83880; 84145; 84443; 84484; 85025; 85378; 93005; 99283; Q9967

== ENCOUNTER 2020-11-08 13:23 | Emergency (ER) | payer MEDICARE, MEDICAID, SELFPAY ==
--- NOTE | 2020-11-08 13:34 | XR_ITS ---
WS: [id number] Portable AP upright chest, 11/08/2020 Clinical Data: dyspnea/cough Comparison: Portable chest, 11/05/2020. Findings: The moderate right pleural effusion has not changed. The left lung remains clear. No nodule s or masses are seen. The heart is slightly enlarged. No pneumothorax or pneumonia is seen. XR/XR chest 1V portable [id number] Impression: No change in moderate right pleural effusion.
--- NOTE | 2020-11-08 13:34 | ECG_ITS ---
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 Measurements Intervals [place] Rate: 92 P: 5 SC: 163 QRS: 18 QRSD: 86 T: 9 QT: 332 QTc: 412 Interpretive Statements SINUS RHYTHM NONSPECIFIC T-WAVE ABNORMALITY INTERPRETATION BASED ON A DEFAULT AGE OF 40 YEARS Compared to ECG 11/05/2020 12:32:54 T-wave abnormality now present Electronically Signed On 11-08-2020 20:32:41 CDT by Jr Miramontes M.D. [id number]
[2020-11-08 13:49] VITALS: BP 143/91; PULSE 91; RESP 18; O2SAT 97; BMI 46.5
--- NOTE | 2020-11-08 13:54 | W.ED.ABDPA2 ---
HPI - Abdominal Pain General: Chief Complaint: Nausea/Vomiting/Diarrhea Stated Complaint: CP/ NAUSEA/ DRY HEAVING Time Seen by Provider: 11/08/20 13:25 History of Present Illness: HPI narrative: 60 yo female presents with complaints of nausea and vomiting. She was seen earlier this summer MRSA pneumonia. She has developed a large pleural effusion which has persisted she was recently started on clindamycin after starting clindamycin she developed nausea and vomiting she not had any other fever breathing is relatively unchanged she does have early fatigue and dyspnea on exertion but is unchanged from what she had had previously. She is not having any chest pain. MD elicited complaint: other (Nausea and vomiting recently started new medication) Pertinent past history: other (Persistent left pleural effusion) Onset (ago): minute(s) Pain Consistency: constant Location: Epigastric Severity: mild Quality: cramping Radiation: none Migration to: no migration Exacerbating factors: medication Relieving factors: nothing Associated Symptoms: Reports nausea, poor appetite and vomiting; Denies anorexia, belching, bloating, change in bowel habits, change in stool character, chills, coffee ground emesis, constipation, GI cramping, diarrhea, dyspepsia, dysuria, excessive flatus, fever(s), heartburn, hematochezia, hematuria, hematemesis, fecal incontinence, loose stools, melena and syncope Review of Systems Const: Denies: fever(s) or chills ENMT: Denies: throat pain, ear or mastoid pain, nasal discharge or nasal congestion Card: Denies: syncope Resp: Denies: dyspnea, productive cough or non-productive cough GI: Reports: nausea and vomiting; Denies: hematemesis, coffee ground emesis, heartburn, diarrhea, constipation, bloating, GI cramping, belching, excessive flatus, fecal incontinence, change in bowel habits, change in stool character, hematochezia or melena : Denies: dysuria or hematuria Skin/Breast: Denies: rash or pruritus PFSH ED PFSH: Medical History Alcohol abuse Anxiety and depression CAD (coronary artery disease) has 2 stents Chronic obstructive pulmonary disease, unspecified COVID-19 (03/05/20) Essential (primary) hypertension Hepatic steatosis with hepatomegaly History of echocardiogram (03/06/20) Estimated EF 70%, normal diastolic function, normal pulmonary artery pressure, no valvular abnormality noted Intervertebral disc disorder with radiculopathy of lumbar region Low serum iron Mixed hyperlipidemia Morbid obesity BMI ~55 kg/m2 Osteoarthritis, chronic Personal history of nicotine dependence Slow transit constipation Vancomycin-induced nephrotoxicity (~06/2019) Vitamin D deficiency Surgical History H/O esophagogastroduodenoscopy (05/04/19) Status post gastric bypass with grade B esophagitis History of 2 sections History of cholecystectomy History of coronary artery stent placement History of gastric bypass History of hysterectomy History of left hip replacement History of right hip replacement S/P foot surgery, right 1) open trimalleolar fracture 05/2019 2) gangrene at operative site 06/2019 Status post colonoscopy with polypectomy (05/04/19) Descending colon polyp Family History Grandmother Hypertension Stroke Mother Hypertension Stroke Family/Other CAD (coronary artery disease) Denies family history of Diabetes Dementia Chronic kidney disease (CKD) Suicide Anesthesia complication Bleeding disorder Lung disease Cancer Social History Smoking and tobacco status: current every day smoker cigarettes Packs smoked per day: 0.5 Second hand smoke exposure: No Smoking risk assessment/counseling performed?: Yes Alcohol intake: current Alcohol intake frequency: 3 or more drinks per day Alcohol type: hard liquor Desire information about alcohol rehabilitation?: No Last alcohol use date: 06/16/19 Desire information about substance/drug rehabilitation?: No Counseling given: No Adopted: No Caregiver/support person: No Lives independently: Yes Household members: significant other Housing: House Marital status: Single Marital status details: Life partner Donny Nolen [phone] Number of children: 3 service: No Current occupational status: unemployed History of recent travel: No Current gender identity: Female Physical Exam Const: COMMON NORMALS: no acute distress GENERAL APPEARANCE: cooperative and comfortable ORIENTATION/CONSCIOUSNESS: Yes awake, Yes oriented to person, Yes oriented to place and Yes oriented to time HENMT: COMMON NORMALS: normocephalic, atraumatic and hearing grossly normal bilaterally HEAD & SCALP: normocephalic and atraumatic Neck/C-Spine: COMMON NORMALS: no JVD Resp: COMMON NORMALS: normal respiratory effort, No retractions, No use of accessory muscles and clear to auscultation bilaterally AUSCULTATION: clear to auscultation bilaterally Cardio: COMMON NORMALS: no JVD, regular rate, regular rhythm and No murmurs present (Cardio) RATE: regular rate RHYTHM: regular rhythm GI: COMMON NORMALS: Soft to palpation and No hepatosplenomegaly present AUSCULTATION: Yes normoactive bowel sounds PALPATION: Yes Soft to palpation, No Tenderness to palpation present (GI), No Guarding due to palpation present (GI) and Yes No hepatosplenomegaly present Extremity: COMMON NORMALS: normal to inspection, capillary refill normal, no clubbing, cyanosis or edema, no calf tenderness and no pedal edema Neuro: SENSORIUM/ORIENTATION: Yes oriented to person, Yes oriented to place and Yes oriented to time Skin: COMMON NORMALS: no rashes or lesions noted GENERAL SKIN EXAM: no rashes or lesions noted Course Vital Signs: Vital signs: Vital Signs Pulse Rate 96 11/08/20 17:03 Respiratory Rate 18 11/08/20 17:03 Blood Pressure 144/100 11/08/20 17:03 Pulse Oximetry 93 11/08/20 17:03 MDM - Abdominal Pain MDM Narrative: Medical decision making narrative: Labs and imaging reviewed as on the chart. Patient has persistent pleural effusion. Think her nausea and vomiting are caused by the antibiotic wire stop clindamycin changed to Bactrim and can get her set up with pulmonology to follow-up on this pleural effusion. Lab Data: Labs: Lab Results 11/08/20 11/08/20 Range/Units 14:18 14:18 WBC 13.0 H (4.0-10.0) 10^3/ uL RBC 5.10 (4.1-5.3) 10^6/u L Hgb 14.9 (11.5-15.3) g/dL Hct 46.8 (37.0-47.0) % MCV 91.8 (81-99) fl MCH 29.2 (28.0-34.0) pg MCHC 31.8 (30.0-36.0) g/dL RDW 14.2 (12.1-15.1) % Plt Count 250 (130-400) 10^3/c mm MPV 10.1 (7.4-10.4) fL Neut % (Auto) 77.2 % Lymph % (Auto) 15.7 % [place] % (Auto) 5.5 % Eos % (Auto) 1.0 % Baso % (Auto) 0.3 % Neut # (Auto) 10.02 H (1.8-7.7) 10^3/u L Lymph # (Auto) 2.0 (0.8-4.8) 10^3/u L [place] # (Auto) 0.7 (0.2-0.9) 10^3/u L Eos # (Auto) 0.1 (0.0-0.8) 10^3/u L Baso # (Auto) 0.0 (0.0-0.1) 10^3/u L Nucleated RBC % (a uto) 0 % Nucleated RBCs # 0.0 /100WBC Sodium 142 (136-145) mmol/L Potassium 4.3 (3.5-5.1) mmol/L Chloride 106 (98-107) mmol/L Carbon Dioxide 26 (22-29) mmol/L Anion Gap 14.3 (5-19) BUN 8 (8-23) mg/dL Creatinine 0.9 (0.5-0.9) mg/dL GFR Calculation 63.7 L (90-130) mL/min Glucose 96 (65-115) mg/dL Calculated Osmolal ity 292 (285-295) mOsm/k g Calcium 8.2 L (8.5-10.5) mg/dL Discharge Plan Discharge Patient Disposition: Home Clinical Impression: Pleural effusion, Nausea & vomiting, Medication side effect Condition: Stable Prescriptions: New Bactrim DS 800-160 mg tablet 1 tab PO BID 10 Days Qty: 20 RF: 0 Zofran 4 mg tablet 4 mg PO Q6H PRN (Reason: nausea and vomiting) Qty: 15 RF: 0 Discontinued clindamycin HCl 150 mg capsule 450 mg PO Q8H 10 Days Qty: 90 RF: 0 No Action (DME) lace up ankle brace See Rx Instructions .Route .MEDSUPPLY Qty: 1 RF: 0 carvedilol 25 mg tablet 12.5 mg PO BID@0900,1800 Qty: 60 RF: 2 clopidogrel [Plavix] 75 mg tablet 75 mg PO DAILY@0900 Qty: 30 RF: 2 cyclobenzaprine 10 mg tablet 10 mg PO TID MDD SEE PHARMACY COMMENT PRN (Reason: Muscle Spasm) Qty: 30 RF: 2 duloxetine 60 mg capsule,delayed release(DR/EC) 60 mg PO BID@0900,1800 Qty: 60 RF: 2 furosemide [Lasix] 20 mg tablet 20 mg PO DAILY PRN (Reason: edema) Qty: 30 RF: 2 pantoprazole [Protonix] 40 mg tablet,delayed release (DR/EC) 40 mg PO BID@0900,1800 Qty: 60 RF: 2 rosuvastatin 40 mg tablet 40 mg PO BEDTIME@2200 Qty: 30 RF: 2 tramadol 50 mg tablet 50 mg PO Q4H Qty: 90 RF: 2 (DME) inogen system See Rx Instructions .Route .MEDSUPPLY Qty: 1 RF: 0 (DME) Allevyn Adhesive Dressing 5 X 5 bandage See Rx Instructions .ROUTE .MEDSUPPLY Qty: 10 RF: 0 (DME) BD Luer-Nunu Syringe 3 mL 23 x 1 syringe See Rx Instructions .ROUTE .MEDSUPPLY Qty: 6 RF: 2 lisinopril 40 mg tablet 20 mg PO DAILY@0900 Qty: 30 RF: 2 promethazine 25 mg tablet 25 mg PO Q6H PRN (Reason: nausea and vomiting) Qty: 90 RF: 0 (DME) Wheelchair See Rx Instructions .ROUTE .MEDSUPPLY Qty: 1 RF: 0 cyanocobalamin (vitamin B-12) 1,000 mcg/mL solution 1,000 mcg IM Q30D Qty: 1 RF: 0 potassium chloride 8 mEq capsule, extended release 8 meq PO DAILY@0900 Qty: 30 RF: 1 gabapentin 300 mg capsule See Rx Instructions .ROUTE .COMPLEX Qty: 150 RF: 1 hydroxyzine HCl 50 mg tablet 50 mg PO BID PRN (Reason: anxiety) Qty: 60 RF: 1 Incruse Ellipta 62.5 mcg/actuation blister with device 1 inh INHALATION DAILY Qty: 30 RF: 2 albuterol sulfate 2.5 mg /3 mL (0.083 %) Solution For Nebulization 2.5 mg INHALATION Q4H MDD SEE PHARMACY COMMENT PRN (Reason: Shortness Of Breath) RF: 0 Ventolin HFA 90 mcg/actuation Hfa Aerosol Inhaler 1 puff INHALATION Q6H PRN (Reason: SHORTNESS OF BREATH/WHEEZING) RF: 0 meclizine 25 mg tablet 25 mg PO BID PRN (Reason: Dizziness Or Vertigo) Qty: 30 RF: 0 cholecalciferol (vitamin D3) [Vitamin D3] 125 mcg (5,000 unit) tablet 5,000 unit PO DAILY@0900 RF: 0 fluticasone propion-salmeterol [Advair Diskus] 500-50 mcg/dose blister with device 1 ea inhalation BID RF: 0 Hemorrhoidal Cream 1 applic MD BID PRN (Reason: Pain/DISCOMFORT) RF: 0 Discharge Orders: Discharge ED (Routine); Ordered 11/08/20 Ordered By: Cristo Jenkins Referrals: Jadiel Munoz, [facility] [Primary Care Provider] - Discharge Diet: Clear Liquid Discharge Activity: Resume usual activity Patient Instructions: Opioid Safety Coding Level of Care Code ED Scientific Laboratory Supervisor for Chg Fwd Exam Comprehensive
[2020-11-08 14:32] LABS: Basophils % 0.3 %; Eosinophils # 0.1 10^3/uL (0.0-0.8); Hematocrit 46.8 % (37.0-47.0); Hemoglobin 14.9 g/dL (11.5-15.3); Lymphocytes % 15.7 %; Mean Corpuscular HGB Conc 31.8 g/dL (30.0-36.0); Mean Corpuscular Hemoglobin 29.2 pg (28.0-34.0); Mean Corpuscular Volume 91.8 fl (81-99); Mean Platelet Volume 10.1 fL (7.4-10.4); Monocytes # 0.7 10^3/uL (0.2-0.9); Monocytes % 5.5 %; Neutrophils # 10.02 10^3/uL (1.8-7.7); Neutrophils % 77.2 %; Nucleated Red Blood Cells % 0 %; Platelet Count 250 10^3/cmm (130-400); Red Cell Distribution Width 14.2 % (12.1-15.1)
[2020-11-08] MEDS: sodium chloride 0.9% 1,000 ML 999 ML IV (14:47)
[2020-11-08] MEDS: ondansetron 2 mg/ML SDV 2 mL 4 MG IVP (14:47)
[2020-11-08 14:49] VITALS: BP 144/100; PULSE 96; RESP 18; O2SAT 93
[2020-11-08 14:52] LABS: Anion Gap 14.3 (5-19); Blood Urea Nitrogen 8 mg/dL (8-23); Calcium 8.2 mg/dL (8.5-10.5); Carbon Dioxide 26 mmol/L (22-29); Chloride 106 mmol/L (98-107); Glomerular Filtration Rate 63.7 mL/min (90-130); Glucose 96 mg/dL (65-115); Osmolality Calculated 292 mOsm/kg (285-295); Potassium 4.3 mmol/L (3.5-5.1); Sodium 142 mmol/L (136-145)
[2020-11-08 17:03] VITALS: BP 144/100; PULSE 96; RESP 18; O2SAT 93
== END 2020-11-08 17:04 | disposition home or self-care (01) ==
PROVIDERS: Emergency Provider Family Medicine; PCP Nurse Practitioner
DX: R11.2 Nausea with vomiting, unspecified (principal); T50.905A Adverse effect of unspecified drugs, medicaments and biological substances, initial encounter; J90 Pleural effusion, not elsewhere classified; Z79.02 Long term (current) use of antithrombotics/antiplatelets; I25.10 Atherosclerotic heart disease of native coronary artery without angina pectoris; I10 Essential (primary) hypertension; E78.2 Mixed hyperlipidemia; F17.210 Nicotine dependence, cigarettes, uncomplicated
CPT/HCPCS: 71045; 80048; 85025; 93005; 96361; 96374; 99284; J2405; J7030

== ENCOUNTER 2020-11-29 06:00 | Outpatient (RCR) | payer MEDICARE, MEDICAID, SELFPAY | END 2020-12-29 23:59 | disposition home or self-care (01) | LOC: APT 06:00 | PROVIDERS: PCP Nurse Practitioner; Referring Provider Orthopaedic Surgery; Visit Provider Orthopaedic Surgery | DX: S82.892D Other fracture of left lower leg, subsequent encounter for closed fracture with routine healing (principal); X58.XXXD Exposure to other specified factors, subsequent encounter | CPT/HCPCS: 97110; 97140 ==

== ENCOUNTER 2020-12-12 09:23 | Outpatient (CLI) | payer MEDICARE, MEDICAID, SELFPAY ==
--- NOTE | 2020-12-12 09:30 | USCV_ITS ---
Zenaida Madsen Age: 60 Gender: F : 1960 Exam Date: 12/12/2020 09:50 Ordering Phys: Aimee Pelaez MD ([email or web address]) Technologist: Sanjuanita Stephens Exam Location: [facility] [place] Indication: PAD Risk Factors: Previous Vascular Surgery: RIGHT LEFT BP: 135.0 / 97.00 BP: 135.0/ 100.00 0 0 Waveform Velocity (cm/s) Velocity (cm/s) Waveform Triphasic 94.0 Iliac Prox 129.2 Triphasic Triphasic 112.5 Iliac Mid 120.9 Triphasic Triphasic 113.5 Iliac Distal 113.9 Triphasic Triphasic 91.0 MINERALOGY PROFESSOR 109.7 Triphasic Triphasic 74.3 SFA Prox 53.8 Triphasic Triphasic 84.6 SFA Mid 64.9 Triphasic Triphasic 63.2 SFA Dist 48.9 Triphasic Triphasic 51.3 POP 60.6 Triphasic Triphasic 51.9 FILM MOUNTER 52.8 Triphasic Triphasic 58.9 DPA 82.3 0.43 1.2 SERENE 1.2 FINDINGS RT FILM MOUNTER- 158, RT DPA 126 LT FILM MOUNTER - 168, LT 166 CONCLUSIONS 1. Normal resting ABIs bilaterally 2. Normal arterial Doppler waveforms and velocities 3. No significant arterial obstruction, based on the above plan Dr Aimee Pelaez MD [facility] (Electronically Signed) Final Date: 13 December 2020 15:07 S
== END 2020-12-12 09:24 | disposition home or self-care (01) ==
LOC: RAD 09:24
PROVIDERS: PCP Nurse Practitioner; Visit Provider Internal Medicine Cardiovascular Disease
DX: I73.9 Peripheral vascular disease, unspecified (principal)
CPT/HCPCS: 93925

== ENCOUNTER 2020-12-19 15:49 | Outpatient (CLI) | payer MEDICARE, MEDICAID, SELFPAY ==
--- NOTE | 2020-12-19 16:10 | XR_ITS ---
WS: [id number] PA and lateral chest, 12/19/2020 Clinical Data: PLEURAL EFFUSION Comparison: Portable chest, 11/08/2020. Findings: No nodules or masses are seen. The moderate right pleural effusion remains the same. No lef t pleural effusion is seen. The heart is slightly enlarged. No pneumonia or pneumothorax is seen.. XR/XR chest 2V* [id number] Impression: No change in right pleural effusion.
== END 2020-12-19 15:50 | disposition home or self-care (01) ==
LOC: RAD 15:56
PROVIDERS: PCP Nurse Practitioner; Visit Provider Internal Medicine Pulmonary Disease
DX: J90 Pleural effusion, not elsewhere classified (principal)
CPT/HCPCS: 71046

== ENCOUNTER 2020-12-24 11:06 | Outpatient (CLI) | payer MEDICARE, MEDICAID, SELFPAY ==
[2020-12-24 11:33] VITALS: BP 120/73; PULSE 94; RESP 18; TEMP 37.1; O2SAT 95
[2020-12-24 12:06] VITALS: BMI 46.8
--- NOTE | 2020-12-24 13:07 | PC.NURSE ---
THORACENTESIS CANCELLED AFTER ULTRASOUND IMAGE REVEALED NOT ENOUGH FLUID TO SAFELY ASPIRATE. PATIENT INSTRUCTED TO FOLLOW UP WITH DOCTOR DATAR IN HIS CLINIC.
--- NOTE | 2020-12-24 13:44 | PM.PN ---
Subjective Subjective: Interval history: -Patient here for ultrasound-guided thoracentesis -Recently seen in my clinic after ED discharge as follow-up -Patient with history of alcohol abuse, anxiety CAD s/p 3 stents, COPD, COVID-19 in March 21, morbid obesity 45 and recently treated for MRSA pneumonia in August 2020-gradually improving. -She had right pleural effusion on chest x-ray 11/08/2020 and repeat chest x-ray during her clinic visit 12/19/2020 showed no change in right pleural effusion. -Today scheduled for thoracentesis as outpatient but bedside ultrasound showed mild effusion appears to be posteriorly loculated. -Patient denied any complaints, informed her to increase her Lasix to 40 mg daily and will repeat chest x-ray in 3 weeks Medications: Reviewed: Yes Vitals/I&O/Wt Last Vital Signs Temp 98.7 F 12/24/20 11:33 Pulse 94 12/24/20 11:33 Resp 18 12/24/20 11:33 BP 120/73 12/24/20 11:33 Pulse Ox 95 12/24/20 11:33 Weight last 48 hrs Weight 273 lb Coding Level of Care Code Acute Digital Media Designer for Chg Yrn
--- NOTE | 2020-12-24 13:52 | P.PCN_ITS ---
Progress Note: A&P Assessment and plan (1) Pleural effusion: Status: Acute Assessment and Plan: -Patient here for ultrasound-guided thoracentesis -Recently seen in my clinic after ED discharge as follow-up -Patient with history of alcohol abuse, anxiety CAD s/p 3 stents, COPD, COVID-19 in March 21, morbid obesity 45 and recently treated for MRSA pneumonia in August 2020-gradually improving. -She had right pleural effusion on chest x-ray 11/08/2020 and repeat chest x-ray during her clinic visit 12/19/2020 showed no change in right pleural effusion. -Today scheduled for thoracentesis as outpatient but bedside ultrasound showed mild effusion appears to be posteriorly loculated. -Patient denied any complaints -Recommended her to increase her Lasix to 40 mg daily and will repeat chest x- ray in 3 weeks and will check with bedside ultrasound Plan conveyed to patient and she verbalized understanding and agreed with the plan of care Time Spent With Patient Time: Total time spent is greater than 50% in coordination of care (as documented) at patient's floor/unit and/or counseling patient:
== END 2020-12-24 11:07 | disposition home or self-care (01) ==
LOC: GILAB 11:10
PROVIDERS: PCP Nurse Practitioner; Visit Provider Internal Medicine Pulmonary Disease
DX: J90 Pleural effusion, not elsewhere classified (principal); Z53.8 Procedure and treatment not carried out for other reasons
CPT/HCPCS: 32555

== ENCOUNTER 2020-12-30 06:00 | Outpatient (RCR) | payer MEDICARE, MEDICAID, SELFPAY | END 2021-01-28 23:59 | disposition home or self-care (01) | LOC: APT 06:00 | PROVIDERS: PCP Nurse Practitioner; Referring Provider Orthopaedic Surgery; Visit Provider Orthopaedic Surgery | DX: S82.852E Displaced trimalleolar fracture of left lower leg, subsequent encounter for open fracture type I or II with routine healing (principal); S82.851E Displaced trimalleolar fracture of right lower leg, subsequent encounter for open fracture type I or II with routine healing; X58.XXXD Exposure to other specified factors, subsequent encounter; I95.9 Hypotension, unspecified; J42 Unspecified chronic bronchitis; F41.9 Anxiety disorder, unspecified; F32.9 Major depressive disorder, single episode, unspecified; K90.49 Malabsorption due to intolerance, not elsewhere classified | CPT/HCPCS: 80053; 81003; 85025; 86003; 97110; 97140; 97164 ==

== ENCOUNTER → 2021-01-06 08:05 | Outpatient (BNVA) | payer MEDICARE, MEDICAID, SELFPAY | PROVIDERS: PCP Nurse Practitioner; Visit Provider Nurse Practitioner | DX: I10 Essential (primary) hypertension (principal); I95.9 Hypotension, unspecified; Z79.899 Other long term (current) drug therapy | CPT/HCPCS: 80048; 81000 ==

== ENCOUNTER 2021-01-13 12:57 | Outpatient (CLI) | payer MEDICARE, MEDICAID, SELFPAY ==
[2021-01-13 13:58] LABS: Basophils # 0.1 10^3/uL (0.0-0.1); Basophils % 0.7 %; Eosinophils # 0.1 10^3/uL (0.0-0.8); Eosinophils % 1.6 %; Hematocrit 45.8 % (37.0-47.0); Hemoglobin 14.3 g/dL (11.5-15.3); Lymphocytes # 1.9 10^3/uL (0.8-4.8); Lymphocytes % 21.3 %; Mean Corpuscular HGB Conc 31.2 g/dL (30.0-36.0); Mean Corpuscular Hemoglobin 30.2 pg (28.0-34.0); Mean Corpuscular Volume 96.8 fl (81-99); Mean Platelet Volume 10.1 fL (7.4-10.4); Monocytes # 0.6 10^3/uL (0.2-0.9); Monocytes % 6.6 %; Neutrophils # 6.13 10^3/uL (1.8-7.7); Neutrophils % 69.6 %; Nucleated Red Blood Cells % 0 %; Platelet Count 271 10^3/cmm (130-400); Red Blood Count 4.73 10^6/uL (4.1-5.3); Red Cell Distribution Width 15.4 % (12.1-15.1); White Blood Count 8.8 10^3/uL (4.0-10.0)
[2021-01-13 14:15] LABS: Ferritin 179 ng/mL (15-150); Iron 63 ug/dL (37-145); Percent Saturation 26.8 % (20-50); Total Iron Binding Capacity 235 mcg/dl; Unsaturated Iron Binding 172 ug/dL (112-347)
[2021-01-13 14:42] LABS: Folate Level 2.3 ng/mL (4.8-37.3)
--- NOTE | 2021-01-13 17:44 | ONC FU_ITS ---
Dr. Elizabeth follow up note Patient: Zenaida Madsen Unit #: [id number]: 1960 Dicatated By: Jonnathan Elizabeth M.D.Date of Visit:Jan 13, 2021 Onc Med Follow-up/Prog Note History of Present Illness: Ms. Zenaida Madsen, 60-year-old female with history of gastric bypass done in 2000 for weight reduction, as per patient during follow-up she was never informed about low hemoglobin until recently when her routine follow-up lab work-up showed progressive anemia as labs done on May 06, 2020 showed white blood count 9.3 hemoglobin 9 5 hematocrit 34.4 platelets 437,000 MCV 76.1 and repeat CBC on May 10, 2020 showed white blood count 10.6 hemoglobin 8.6 hematocrit 31.3 MCV 74.2 platelets 392,000, anemia work-up done by PMD on May 13, 2020 showed iron 18 iron saturation 4.4, TIBC 4.2, B12 173, folate more than 20, consistent with combined B12 iron deficiency anemia. Patient is complaining of progressive generalized weakness and fatigue as per patient she had a right ankle fracture due to fall subsequently developed nonhealing ulcer, which has almost resolved now and then she had a left ankle fracture again due to fall and now being monitored by orthopedics. As per patient in March 2020 she received a unit of packed RBC for generalized weakness and fatigue and severe anemia and she also underwent EGD and colonoscopy in April 2019 which showed patent JG anastomosis and grade B esophagitis., No evidence of H. pylori and colonoscopy was also unremarkable except internal hemorrhoids and 5 mm sessile polyp was removed from descending colon. Patient never received parenteral iron in the past but recently started on B12 shot Status post Injectafer 750 mg IV weekly x2 on July 01 and July 08, 2020 with excellent response, normalization of iron deficiency anemia as well as replenish iron stores Came for follow-up, denies any specific complaints, no fever chills, no nausea or vomiting, no diarrhea or constipation, no melena hematochezia, no hemoptysis or hematemesis, no jaundice, Medications: 1Umeclidinium [place] 1 Inhalation (of 62.5 mcg/inh) Aerosol Powder, Breath Activated Inhalation daily, Advair Diskus 1 Inhalation (of 500-50 mcg/dose) Aerosol Powder, Breath Activated Inhalation b.i.d., Albuterol Sulfate 1 Ampule (of (2.5 mg/3ml) 0.083%) Nebulization solution Inhalation q 4 hours PRN, B Complex-Vitamin C 1 Tablet Capsule Oral daily, Carvedilol 1 Tablet (of 12.5 mg) Oral b.i.d., Cholecalciferol 1 Caplet (of 125 mcg ) Capsule Oral daily, Crestor 1 Tablet (of 40 mg) Oral daily, Cyclobenzaprine HCl 1 Tablet (of 10 mg) Oral q 8 hours PRN, Cymbalta 1 Caplet (of 60 mg) Capsule Delayed Release Particles Oral b.i.d., Furosemide 1 Tablet (of 20 mg) Oral q 1 day PRN, Gabapentin (600 mg) Tablet Oral Take as Directed, hydrOXYzine HCl 1 Tablet (of 50 mg) Oral q 12 hours PRN, Lisinopril 1 Tablet (of 40 mg) Oral daily, Meclizine HCl 1 Tablet (of 25 mg) Oral b.i.d. PRN, [facility] Wound/Burn Dressing 1 Applicatorful Gel (jelly) Topical b.i.d., Plavix 1 Tablet (of 75 mg) Oral daily, Potassium Chloride ER 1 Tablet (of 8 meq) Capsule, controlled release Oral q PRN, Protonix 1 Tablet (of 40 mg) Tablet, enteric coated Oral b.i.d., Pulmicort 1 Ampule (of 1 mg/2mL) Suspension Inhalation b.i.d., traMADol HCl 1 Tablet (of 50 mg) Oral q 4 hours PRN, Ventolin HFA 1 Puff(s) (of 108 (90 base) mcg/act) Aerosol, solution Inhalation q 4 hours PRN Allergies: Ciprofloxacin HCl and Doxycycline Monohydrate. Review of Systems: Review of Systems is not available for this patient. Vital Signs: Performed on Jan 13, 2021 14:33 Weight - 270.2 lbs (LOW) BSA - 0.00 sq.m BMI - 0.00 Temperature - 98.2 F (LOW) Pulse - 89 /min Respiration - 18 /min BP - 131/86 mm(hg) O2 Sat - 97 % Pain - 0 Fatigue - 7 Performance Status: 1 - No physically strenuous activity, but ambulatory and able to carry out light or sedentary work (e.g. office work, light house work). (ECOG) Physical Examination: ENMT - No mouth sores, no thrush, no jaundice, Respiratory - Poor air entry otherwise clear, Cardiovascular - Regular rate and rhythm of heart, Abdomen - Soft, bowel sounds present, Extremities - Trace edema bilaterally. Lab/Imaging: Most recent lab results are not available for this patient. Impression: Microcytic hypochromic anemia due to iron deficiency due to most likely iron malabsorption due to GJ anastomosis for weight reduction or chronic GI blood loss. Also B12 deficiency again due to malabsorption. History of gastric bypass for weight reduction in 2020 Status post Injectafer 750 mg IV weekly x2 in June 2020 with excellent response, Normalization of anemia, hemoglobin 13 g on August 05, 2020 compared to 8.2 g prior to infusion Obesity Plan: Discussed with patient regarding her labs white blood count 8.8 hemoglobin 14.3 hematocrit 45.8 platelets 271,000 iron saturation 26.8% ferritin 179 iron 63 TIBC 235 Lesion, patient doing well with no new signs symptom, follow-up lab work-up shows hemoglobin and iron stores within normal range, will continue to monitor she will return to clinic in 4 months with CBC and iron studies Signed By: Jonnathan Elizabeth M.D. <<Signature on File>>
== END 2021-01-13 12:58 | disposition home or self-care (01) ==
LOC: ONCMED 12:59
PROVIDERS: PCP Nurse Practitioner; Visit Provider Internal Medicine Hematology & Oncology
DX: D50.9 Iron deficiency anemia, unspecified (principal); K90.9 Intestinal malabsorption, unspecified; D51.9 Vitamin B12 deficiency anemia, unspecified; E66.9 Obesity, unspecified; Z79.899 Other long term (current) drug therapy
CPT/HCPCS: 36415; 82728; 82746; 83540; 83550; 85025; 99214

== ENCOUNTER 2021-01-29 06:00 | Outpatient (RCR) | payer MEDICARE, MEDICAID, SELFPAY | END 2021-02-28 23:59 | disposition home or self-care (01) | LOC: APT 06:00 | PROVIDERS: PCP Nurse Practitioner; Referring Provider Orthopaedic Surgery; Visit Provider Orthopaedic Surgery | DX: S82.851K Displaced trimalleolar fracture of right lower leg, subsequent encounter for closed fracture with nonunion (principal); S82.852K Displaced trimalleolar fracture of left lower leg, subsequent encounter for closed fracture with nonunion; Y99.9 Unspecified external cause status | CPT/HCPCS: 97110; 97140 ==

== ENCOUNTER → 2021-02-04 16:08 | Outpatient (BNVA) | payer MEDICARE, MEDICAID, SELFPAY | PROVIDERS: PCP Nurse Practitioner; Visit Provider Nurse Practitioner Family | DX: J44.1 Chronic obstructive pulmonary disease with (acute) exacerbation (principal) | CPT/HCPCS: 80053; 85025 ==

== ENCOUNTER → 2021-02-05 10:24 | Outpatient (BNVA) | payer MEDICARE, MEDICAID, SELFPAY | PROVIDERS: PCP Nurse Practitioner; Visit Provider Internal Medicine Pulmonary Disease | DX: J42 Unspecified chronic bronchitis (principal) | CPT/HCPCS: 87635 ==

== ENCOUNTER 2021-02-11 07:50 | Outpatient (CLI) | payer MEDICARE, MEDICAID, SELFPAY ==
--- NOTE | 2021-02-11 12:50 | PFTS_ITS ---
Date of Study:02/11/21 Date of Dictation: 02/14/21 MECHANICS: Postbronchodilator forced vital capacity (FVC) is reduced . Postbronchodilator forced expiratory volume in one second (FEV1) is severely reduced 49%. FEV1/FVC is normal. There is significant response to bronchodilators. FLOW VOLUME LOOP: normal. LUNG VOLUMES: Total lung capacity (TLC) is reduced. Residual volume (RV) is moderately reduced. DIFFUSING CAPACITY FOR CARBON MONOXIDE: Moderately reduced 41 % . INTERPRETATION: The spirometry shows restrictive pattern. Lung volumes suggestive of moderate restriction. There is moderate gas transfer defect. Constellation of findings consistent with moderate restrictive lung disease with gas transfer defect. Clinical correlation recommended. [facility]
== END 2021-02-11 07:51 | disposition home or self-care (01) ==
LOC: RT 07:53
PROVIDERS: PCP Nurse Practitioner; Visit Provider Internal Medicine Pulmonary Disease
DX: J90 Pleural effusion, not elsewhere classified (principal)
CPT/HCPCS: 94060; 94726; 94729; J7611

== ENCOUNTER 2021-03-01 06:00 | Outpatient (RCR) | payer MEDICARE, MEDICAID, SELFPAY | END 2021-03-19 23:59 | disposition home or self-care (01) | LOC: APT 06:00 | PROVIDERS: PCP Nurse Practitioner; Referring Provider Orthopaedic Surgery; Visit Provider Orthopaedic Surgery | DX: S82.852D Displaced trimalleolar fracture of left lower leg, subsequent encounter for closed fracture with routine healing (principal); S82.851D Displaced trimalleolar fracture of right lower leg, subsequent encounter for closed fracture with routine healing; X58.XXXD Exposure to other specified factors, subsequent encounter | CPT/HCPCS: 97110; 97164 ==

== ENCOUNTER 2021-03-25 06:00 | Outpatient (RCR) | payer MEDICARE, MEDICAID, SELFPAY | END 2021-03-31 23:59 | disposition home or self-care (01) | LOC: TPT 06:00 | PROVIDERS: PCP Nurse Practitioner; Referring Provider Nurse Practitioner; Visit Provider Nurse Practitioner | DX: J44.9 Chronic obstructive pulmonary disease, unspecified (principal) | CPT/HCPCS: 97163 ==

== ENCOUNTER 2021-04-08 13:39 | Emergency (ER) | payer MEDICARE, MEDICAID, SELFPAY ==
--- NOTE | 2021-04-08 14:23 | ECG_ITS ---
[facility] Test Date: 2021-04-08 Pat Name: Zenaida Madsen Department: Room: Gender: Female Information Coordinator: : 1960 Requested By: Cristo Bales Order Number: [id number] Korey MD: Jr Miramontes M.D. Measurements Intervals [place] Rate: 70 P: 96 MS: 167 QRS: 37 QRSD: 89 T: 56 QT: 381 QTc: 412 Interpretive Statements SINUS RHYTHM LOW QRS VOLTAGE IN PRECORDIAL LEADS [QRS DEFLECTION < 1.0 mV IN CHEST LEADS] Compared to ECG 11/08/2020 14:56:57 Low QRS voltage now present T-wave abnormality no longer present Electronically Signed On 04-08-2021 17:05:39 WORM FARMER by Jr Miramontes M.D. [id number]
--- NOTE | 2021-04-08 14:25 | XR_ITS ---
WS: [id number] XR chest 1V portable [id number] REASON FOR EXAM: dyspnea/cough FINDINGS: Compared to previous examination of 12/19/2020, the left lung remains clear. There is some improvement in the complex opacity in the lower right hemithorax which is a combination of atelectasis, pleural thickening, and pleural fluid. Probable decrease in free pleural fluid. The re are no new findings in the right lung. There is mild tortuosity of the thoracic aorta. Normal heart size. Mild to moderate degenerative changes in the thoracic spine. XR/XR chest 1V portable [id number] IMPRESSION: There is abnormality in the lower right hemithorax which presumably is related to the previously demonstrated right pleural effusion and right lower lung atel ectasis demonstrated on 12/19/2020. There appears to be less free pleural fluid in the right hemithorax.
--- NOTE | 2021-04-08 14:27 | W.ED.SOB ---
HPI - SOB/Dyspnea General: Chief Complaint: Chest Pain Stated Complaint: CHEST HEAVY, L HIP PAIN Time Seen by Provider: 04/08/21 14:22 History of Present Illness: HPI Narrative: 60-year-old female presents emergency room complaining of chest pain and heaviness with orthopnea and increasing shortness of breath the last several days she has a history of heart failure she recently decreased her Lasix to half because of renal insufficiency issues she also complaining left hip pain and left leg pain she has not recently fallen her leg is swollen and red. MD elicited complaint: shortness of breath and cough Pertinent past history: congestive heart failure Onset (ago): day(s) Severity: mild Exacerbating factors: lying flat and exertion Relieving factors: rest and upright position Known history of: congestive heart failure Associated symptoms: Deny abdominal pain, chest congestion, chest pain, cough, diaphoresis, dizziness, extremity pain, fever(s), hemoptysis, lightheadedness, myalgias, nausea, orthopnea, palpitations, paresthesias, polydipsia, polyuria, rash, sense of impending doom, syncope or vomiting Treatment prior to arrival: oxygen Review of Systems Const: Denies: fever(s) or diaphoresis ENMT: Denies: throat pain, ear or mastoid pain, nasal discharge or nasal congestion Card: Denies: chest pain, palpitations, lightheadedness, syncope or orthopnea Resp: Denies: hemoptysis or chest congestion GI: Denies: abdominal pain, nausea or vomiting : Denies: flank pain, difficulty voiding, dysuria, urinary frequency or urinary urgency Musc: Denies: extremity pain Skin/Breast: Denies: rash or pruritus Neuro: Denies: dizziness Endo: Denies: polyuria or polydipsia PFS ED PFSH: Medical History Alcohol abuse Anxiety and depression CAD (coronary artery disease) has 2 stents Chronic obstructive pulmonary disease, unspecified Cigarette smoker COVID-19 (03/05/20) Essential (primary) hypertension Hepatic steatosis with hepatomegaly History of echocardiogram (03/06/20) Estimated EF 70%, normal diastolic function, normal pulmonary artery pressure, no valvular abnormality noted Intervertebral disc disorder with radiculopathy of lumbar region Low serum iron Mixed hyperlipidemia Morbid obesity BMI ~45 kg/m2 Osteoarthritis, chronic Personal history of nicotine dependence Slow transit constipation Vancomycin-induced nephrotoxicity (~06/2019) Vitamin D deficiency Surgical History H/O esophagogastroduodenoscopy (05/04/19) Status post gastric bypass with grade B esophagitis History of 2 sections History of cholecystectomy History of coronary artery stent placement History of gastric bypass History of hysterectomy History of left hip replacement History of right hip replacement S/P foot surgery, right 1) open trimalleolar fracture 05/2019 2) gangrene at operative site 06/2019 Status post colonoscopy with polypectomy (05/04/19) Descending colon polyp Family History Grandmother Hypertension Stroke Mother Hypertension Stroke Family/Other CAD (coronary artery disease) Denies family history of Diabetes Dementia Chronic kidney disease (CKD) Suicide Anesthesia complication Bleeding disorder Lung disease Cancer Social History Second hand smoke exposure: No Smoking risk assessment/counseling performed?: Yes Alcohol intake: current Alcohol intake frequency: 3 or more drinks per day Alcohol type: hard liquor Desire information about alcohol rehabilitation?: No Last alcohol use date: 06/16/19 Desire information about substance/drug rehabilitation?: No Counseling given: No Adopted: No Caregiver/support person: No Lives independently: Yes Household members: significant other Housing: House Marital status: Single Marital status details: Life partner Donny Nolen [phone] Number of children: 3 service: No Current occupational status: unemployed History of recent travel: No Current gender identity: Female Physical Exam Const: COMMON NORMALS: no acute distress GENERAL APPEARANCE: cooperative and comfortable ORIENTATION/CONSCIOUSNESS: Yes awake, Yes oriented to person, Yes oriented to place and Yes oriented to time HENMT: COMMON NORMALS: normocephalic, atraumatic and hearing grossly normal bilaterally HEAD & SCALP: normocephalic and atraumatic Resp: AUSCULTATION: crackles Cardio: COMMON NORMALS: regular rate, regular rhythm and No murmurs present (Cardio) RATE: regular rate RHYTHM: regular rhythm GI: COMMON NORMALS: Soft to palpation and No hepatosplenomegaly present AUSCULTATION: Yes normoactive bowel sounds PALPATION: Yes Soft to palpation, No Tenderness to palpation present (GI), No Guarding due to palpation present (GI) and Yes No hepatosplenomegaly present Extremity: COMMON NORMALS: no calf tenderness GENERAL: Yes edema Neuro: SENSORIUM/ORIENTATION: Yes oriented to person, Yes oriented to place and Yes oriented to time Skin: COMMON NORMALS: no rashes or lesions noted GENERAL SKIN EXAM: no rashes or lesions noted Course Vital Signs: Vital signs: Vital Signs Temperature 98.1 F 04/08/21 15:44 Pulse Rate 79 04/08/21 18:20 Respiratory Rate 17 04/08/21 18:20 Blood Pressure 94/67 04/08/21 18:20 Pulse Oximetry 97 04/08/21 18:20 MDM - SOB/Dyspnea Medical Decision Making Ridging and EKG discussed with the patient. She is improved after diuresis she is feeling much better she does have some fluid retention but does not have a lot of changes in her chest x-ray. Her orthopnea has resolved. We will go ahead and discharge her home. Decrease lisinopril and decrease her potassium supplement as well. Recheck a BMP in 2 days her doctor's office return if she has further problems. Medical Records I reviewed the patient's medical records. Lab Data I reviewed the patient's lab results. : 04/08/21 14:00 04/08/21 14:00 Labs/Radiology: Radiology Impressions Chest X-Ray 04/08/21 14:25 IMPRESSION: There is abnormality in the lower right hemithorax which presumably is related to the previously demonstrated right pleural effusion and right lower lung atelectasis demonstrated on 12/19/2020. There appears to be less free pleural fluid in the right hemithorax. Hip X-Ray 04/08/21 14:29 IMPRESSION: Limited examination with no acute abnormality. Laboratory Results WBC 8.9 10^3/uL (4.0-10.0) 04/08/21 14:00 RBC 4.32 10^6/uL (4.1-5.3) 04/08/21 14:00 Hgb 13.0 g/dL (11.5-15.3) 04/08/21 14:00 Hct 40.6 % (37.0-47.0) 04/08/21 14:00 MCV 94.0 fl (81-99) 04/08/21 14:00 MCH 30.1 pg (28.0-34.0) 04/08/21 14:00 MCHC 32.0 g/dL (30.0-36.0) 04/08/21 14:00 RDW 14.9 % (12.1-15.1) 04/08/21 14:00 Plt Count 168 10^3/cmm (130-400) 04/08/21 14:00 MPV 11.0 fL (7.4-10.4) H 04/08/21 14:00 Neut % (Auto) 64.7 % 04/08/21 14:00 Lymph % (Auto) 23.8 % 04/08/21 14:00 [place] % (Auto) 9.7 % 04/08/21 14:00 Eos % (Auto) 1.0 % 04/08/21 14:00 Baso % (Auto) 0.6 % 04/08/21 14:00 Neut # (Auto) 5.76 10^3/uL (1.8-7.7) 04/08/21 14:00 Lymph # (Auto) 2.1 10^3/uL (0.8-4.8) 04/08/21 14:00 [place] # (Auto) 0.9 10^3/uL (0.2-0.9) 04/08/21 14:00 Eos # (Auto) 0.1 10^3/uL (0.0-0.8) 04/08/21 14:00 Baso # (Auto) 0.1 10^3/uL (0.0-0.1) 04/08/21 14:00 Nucleated RBC % (auto) 0 % 04/08/21 14:00 Nucleated RBCs # 0.0 /100WBC 04/08/21 14:00 Sodium 135 mmol/L (136-145) L 04/08/21 14:00 Potassium 5.6 mmol/L (3.5-5.1) H 04/08/21 14:00 Chloride 103 mmol/L (98-107) 04/08/21 14:00 Carbon Dioxide 22 mmol/L (22-29) 04/08/21 14:00 Anion Gap 15.6 (5-19) 04/08/21 14:00 BUN 25 mg/dL (8-23) H 04/08/21 14:00 Creatinine 2.1 mg/dL (0.5-0.9) H 04/08/21 14:00 GFR Calculation 23.9 mL/min (90-130) L 04/08/21 14:00 Glucose 69 mg/dL (65-115) 04/08/21 14:00 Calculated Osmolality 283 mOsm/kg (285-295) L 04/08/21 14:00 Calcium 8.4 mg/dL (8.5-10.5) L 04/08/21 14:00 Total Bilirubin 0.3 mg/dL (0.15-1.2) 04/08/21 14:00 AST 43 U/L (0-32) H 04/08/21 14:00 ALT 18 U/L (0-33) 04/08/21 14:00 Alkaline Phosphatase 195 IU/L (35-105) H 04/08/21 14:00 Troponin T Baseline 24 ng/L (0-10) H 04/08/21 14:00 Troponin T 120 Minute 23.77 ng/L (0-10) H 04/08/21 16:44 Delta Troponin T -0.23 ABS# (0-10) L 04/08/21 16:44 NT-Pro-B Natriuret Pep 363 pg/mL (0-125) H 04/08/21 14:00 Total Protein 5.4 g/dL (6.6-8.7) L 04/08/21 14:00 Albumin 2.5 g/dL (3.5-5.2) L 04/08/21 14:00 Globulin 2.9 g/dL (1.3-4.6) 04/08/21 14:00 Urine Color Yellow (Yellow) 04/08/21 16:45 Urine Appearance Clear (CLEAR) 04/08/21 16:45 Urine pH 5 (5-7) 04/08/21 16:45 Ur Specific [place] 1.015 (1.005-1.030) 04/08/21 16:45 Urine Protein Neg (Negative) 04/08/21 16:45 Urine Glucose (UA) Norm (Normal) 04/08/21 16:45 Urine Ketones Negative (Negative) 04/08/21 16:45 Urine Blood 2+ (Negative) H 04/08/21 16:45 Urine Nitrate Negative (Negative) 04/08/21 16:45 Urine Bilirubin Neg (Negative) 04/08/21 16:45 Urine Urobilinogen Norm mg/dL (Negative) 04/08/21 16:45 Ur Leukocyte Esterase Negative (Negative) 04/08/21 16:45 Urine RBC 0-4 /hpf (0-2) H 04/08/21 16:45 Urine WBC None /hpf (0-5) 04/08/21 16:45 Ur Squamous Epith Cells 10-15 /hpf (0-5) H 04/08/21 16:45 Amorphous Sediment Not Reportable 04/08/21 16:45 Urine Bacteria 2+ /hpf (NONE) H 04/08/21 16:45 Coarse Granular Casts 5-10 /lpf H 04/08/21 16:45 Urine Mucus 1+ /hpf 04/08/21 16:45 Discharge Plan Discharge Patient Disposition: Home Clinical Impression: CHF (congestive heart failure), Pleural effusion, Hyperkalemia, JESIKA (acute kidney injury) Condition: Stable Prescriptions: Changed lisinopril 20 mg tablet 10 mg PO DAILY Qty: 1 0RF Rx Instructions: Has at home will restart Discontinued potassium chloride [Klor-Con M20] 20 mEq tablet,ER particles/crystals 20 meq PO DAILY Qty: 30 0RF No Action (DME) lace up ankle brace See Rx Instructions .Route .MEDSUPPLY Qty: 1 0RF Rx Instructions: As directed (DME) inogen system See Rx Instructions .Route .MEDSUPPLY Qty: 1 0RF Rx Instructions: As directed inogen system 2 liters continuous 24 hour albuterol sulfate [Ventolin HFA] 90 mcg/actuation HFA aerosol inhaler 1 puff INHALATION Q6H PRN (Reason: SHORTNESS OF BREATH/WHEEZING) Qty: 8.5 2RF albuterol sulfate 2.5 mg /3 mL (0.083 %) solution for nebulization 2.5 mg INHALATION Q4H MDD SEE PHARMACY COMMENT PRN (Reason: Shortness Of Breath) Qty: 75 2RF carvedilol 25 mg tablet 12.5 mg PO BID@0900,1800 Qty: 60 2RF Hold Instructions: Low BP clopidogrel [Plavix] 75 mg tablet 75 mg PO DAILY@0900 Qty: 30 2RF cyclobenzaprine 10 mg tablet 10 mg PO TID MDD SEE PHARMACY COMMENT PRN (Reason: Muscle Spasm) Qty: 30 2RF duloxetine 60 mg capsule,delayed release(DR/EC) 60 mg PO BID@0900,1800 Qty: 60 2RF fluticasone propion-salmeterol [Advair Diskus] 500-50 mcg/dose blister with device 1 ea inhalation BID Qty: 60 2RF furosemide [Lasix] 20 mg tablet 20 mg PO DAILY Qty: 30 2RF gabapentin 300 mg capsule See Rx Instructions .ROUTE .COMPLEX Qty: 150 2RF Rx Instructions: 600 mg orally IN THE MORNING/ 300MG AT NOON/ 600MG IN THE EVENING hydroxyzine HCl 50 mg tablet 50 mg PO BID PRN (Reason: anxiety) Qty: 60 2RF pantoprazole [Protonix] 40 mg tablet,delayed release (DR/EC) 40 mg PO BID@0900,1800 Qty: 60 2RF rosuvastatin 40 mg tablet 40 mg PO BEDTIME@2200 Qty: 30 2RF tramadol 50 mg tablet 50 mg PO Q4H Qty: 90 2RF Incruse Ellipta 62.5 mcg/actuation blister with device 1 inh INHALATION DAILY Qty: 30 2RF ondansetron HCl 8 mg tablet 8 mg PO Q8H PRN (Reason: nausea and vomiting) Qty: 21 0RF (DME) Wheelchair See Rx Instructions .ROUTE .MEDSUPPLY Qty: 1 0RF Rx Instructions: As directed calcium carbonate-vitamin D3 [Os-Lebron 500 + D3] 500mg (1,250mg) -600 unit tablet 1 tab PO DAILY 30 Days Qty: 30 2RF cholecalciferol (vitamin D3) [Vitamin D3] 125 mcg (5,000 unit) tablet 5,000 unit PO DAILY@0900 0RF Hemorrhoidal Cream 1 applic IA BID PRN (Reason: Pain/DISCOMFORT) 0RF Discharge Orders: Discharge ED (Routine); Ordered 04/08/21 Ordered By: Cristo Jenkins Referrals: Jadiel Munoz FNP-C [Primary Care Provider] - Patient Instructions: Opioid Safety Activity Restrictions/Additional Instructions: Stop your lisinopril and your potassium chloride continue Lasix follow-up with your primary care doctor in 2 days for repeat BMP. Coding Level of Care Code ED Diamond Die Driller for Michael Pool
--- NOTE | 2021-04-08 14:29 | XR_ITS ---
WS: [id number] XR hip LT 1V wo/w pel [id number] REASON FOR EXAM: pain FINDINGS: Suboptimal examination possibly due to extremely large patient. Total left hip arthroplasty. The components of the prosthesis are in proper position and alignment. No fracture of the pelvis or femur is identified. XR/XR hip LT 1V wo/w pel [id number] IMPRESSION: Limited examination with no acute abnormality.
--- NOTE | 2021-04-08 14:29 | USCV_ITS ---
Zenaida Madsen Age: 60 Gender: F : 1960 Exam Date: 04/08/2021 16:07 Ordering Phys: Cristo Jenkins DO Technologist: MONICA Exam Location: [facility] – [place] Indication: Leg pain / swelling HISTORY: Leg pain / swelling PROCEDURES: Venous duplex imaging was performed in only the left lower extremity. The following venous structures were evaluated: common femoral vein, profunda vein, proximal portion of the greater saphenous vein, superficial femoral vein, and the popliteal vein. In addition, the posterior tibial and peroneal trunk were evaluated. FINDINGS: Normal 2-D Doppler and augmentation and compressibility throughout the lower extremity venous structures. Additional imaging through the proximal calf veins also reveals no thrombus. Limited evaluation of the greater saphenous vein is patent with no thrombus.. CONCLUSIONS No evidence of left lower extremity DVT. Quincy Guthrie MD (Electronically Signed) Final Date: 08 April 2021 16:40 S
[2021-04-08 15:44] VITALS: BP 88/53; PULSE 971; RESP 16; TEMP 36.7; O2SAT 97; BMI 45.4
[2021-04-08] MEDS: FUROsemide 10 mg/mL SDV 10mL 80 MG IVP (16:06)
[2021-04-08 16:10] LABS: Basophils # 0.1 10^3/uL (0.0-0.1); Basophils % 0.6 %; Eosinophils # 0.1 10^3/uL (0.0-0.8); Hematocrit 40.6 % (37.0-47.0); Lymphocytes # 2.1 10^3/uL (0.8-4.8); Lymphocytes % 23.8 %; Mean Corpuscular Hemoglobin 30.1 pg (28.0-34.0); Monocytes # 0.9 10^3/uL (0.2-0.9); Monocytes % 9.7 %; Neutrophils # 5.76 10^3/uL (1.8-7.7); Neutrophils % 64.7 %; Nucleated Red Blood Cells % 0 %; Platelet Count 168 10^3/cmm (130-400); Red Blood Count 4.32 10^6/uL (4.1-5.3); Red Cell Distribution Width 14.9 % (12.1-15.1); White Blood Count 8.9 10^3/uL (4.0-10.0)
[2021-04-08 16:13] VITALS: BP 102/58; PULSE 74; RESP 18; O2SAT 98
--- NOTE | 2021-04-08 16:23 | ECG_ITS ---
[facility] Test Date: 2021-04-08 Pat Name: Zenaida Madsen Department: Room: Gender: Female Cost Accounting Manager: : 1960 Requested By: Cristo Bales Order Number: [id number] Korey MD: Jr Miramontes M.D. Measurements Intervals [place] Rate: 73 P: 83 NH: 178 QRS: 37 QRSD: 88 T: 52 QT: 374 QTc: 414 Interpretive Statements SINUS RHYTHM Compared to ECG 04/08/2021 15:30:23 No significant changes Electronically Signed On 04-08-2021 17:15:15 RESIDENT CARE ASSOCIATE by Jr Miraomntes M.D. [id number]
[2021-04-08 16:59] LABS: Troponin(5th) Baseline 24 ng/L (0-10)
[2021-04-08 17:07] LABS: Alanine Aminotransferase 18 U/L (0-33); Albumin Level 2.5 g/dL (3.5-5.2); Alkaline Phosphatase 195 IU/L (35-105); Aspartate Amino Transferase 43 U/L (0-32); Blood Urea Nitrogen 25 mg/dL (8-23); Calcium 8.4 mg/dL (8.5-10.5); Carbon Dioxide 22 mmol/L (22-29); Chloride 103 mmol/L (98-107); Globulin 2.9 g/dL (1.3-4.6); Glomerular Filtration Rate 23.9 mL/min (90-130); Glucose 69 mg/dL (65-115); NT Pro B Type Natriuretic Pept 363 pg/mL (0-125); Osmolality Calculated 283 mOsm/kg (285-295); Sodium 135 mmol/L (136-145); Total Bilirubin 0.3 mg/dL (0.15-1.2); Total Protein 5.4 g/dL (6.6-8.7)
[2021-04-08 17:18] LABS: Anion Gap 15.6 (5-19); Potassium 5.6 mmol/L (3.5-5.1)
[2021-04-08 17:21] LABS: Add Urine Microscopic? YES; Bilirubin Urine Neg (Negative); Blood Urine 2+ (Negative); Glucose Urine UA Norm (Normal); Ketones Urine Negative (Negative); Leukocyte Esterase Urine Negative (Negative); Nitrate Urine Negative (Negative); Protein Urine Neg (Negative); Specific Gravity, Urine 1.015 (1.005-1.030); Urine Appearance Clear (CLEAR); Urine Color Yellow (Yellow); Urobilinogen Urine Norm (Negative); pH Urine 5 (5-7)
[2021-04-08 17:28] LABS: RBC Urine 0-4 /hpf (0-2)
[2021-04-08 17:29] LABS: Add Urine Culture? No; Bacteria Urine 2+ /hpf; Mucus Urine 1+ /hpf
[2021-04-08 17:29] LABS: Troponin 5 2HR 23.77 ng/L (0-10)
[2021-04-08 17:35] LABS: Troponin 5 2HR Delta -0.23 ABS# (0-10)
[2021-04-08] MEDS: calcium chloride 10% Syr 10 mL 1 GM IVP (17:42)
[2021-04-08] MEDS: sodium polystyrene sulfonate 15 gm/60 mL Btl PO (17:42)
[2021-04-08 18:20] VITALS: BP 94/67; PULSE 79; RESP 17; O2SAT 97
== END 2021-04-08 18:25 | disposition home or self-care (01) ==
PROVIDERS: Emergency Provider Family Medicine; PCP Nurse Practitioner
DX: J90 Pleural effusion, not elsewhere classified (principal); E87.5 Hyperkalemia; N17.9 Acute kidney failure, unspecified; Z79.02 Long term (current) use of antithrombotics/antiplatelets; I25.10 Atherosclerotic heart disease of native coronary artery without angina pectoris; J44.9 Chronic obstructive pulmonary disease, unspecified; E78.2 Mixed hyperlipidemia; I11.0 Hypertensive heart disease with heart failure; I50.9 Heart failure, unspecified
CPT/HCPCS: 71045; 73501; 80053; 81001; 83880; 84484; 85025; 93005; 93971; 96374; 96375; 99284; J1940; J3490

== ENCOUNTER 2021-04-29 11:20 | Emergency (ER) | payer MEDICARE, MEDICAID, SELFPAY ==
[2021-04-29 11:28] VITALS: BP 146/95; PULSE 97; RESP 18; O2SAT 99; BMI 47.0
--- NOTE | 2021-04-29 11:29 | CT_ITS ---
WS: [id number] CTA OF THE CHEST WITH PULMONARY EMBOLISM PROTOCOL TECHNIQUE: High-resolution contrast enhanced CTA of the chest with coronal and sagittal reformatted i mages with pulmonary embolism protocol. MIP images are also reviewed. CLINICAL INFORMATION: pe COMPARISON: CTA chest November 05, 2020 DLP: 1017.[address] scans at [facility] use at least one of these dose optimization techniques: automated e xposure control; mA and/or kV adjustment per patient size (includes targeted exams where dose is matc hed to clinical indication); or iterative reconstruction. FINDINGS: Proximal main pulmonary arteries are normal. Normal segmental and subsegmental pulmonary arteries. No evidence of pulmonary embolus. Normal caliber thoracic aorta. A few enlarged anterior mediastinal and paratracheal lymph nodes nonsp ecific but may be reactive. Reported recent postoperative changes RIGHT pleurodesis. Small RIGHT pleu ral collection with diffuse enhancing circumferential pleural thickening RIGHT lung. Small amount of air within the RIGHT pleural collection. Findings suspicious for developing empyema. Masslike consoli dative atelectasis in the RIGHT lower lobe similar to November 05, 2020. The LEFT lung is well aerat ed. Adrenal glands are normal. Postoperative changes at the GE junction. Small esophageal hiatal hernia. Celiac and SMA are patent in the upper abdomen. Reported history of pleurodesis with a small amount of induration in the RIGHT inferior anterolateral chest wall with a small amount of fluid. No drainable fluid collection or abscess. CT/CT angio chest PE protcl [id number] IMPRESSION: 1. Proximal main pulmonary arteries are normal. No evidence of pulmonary embol us. 2. Normal caliber thoracic aorta. 3. Small RIGHT pleural effusion with circumferential enhancing pleural thicken ing. Small amount of air in the RIGHT pleural effusion. Findings suspicious for developing pleural infection/empyema 4. Masslike consolidative atelectasis RIGHT lower lobe is similar to previous. 5. LEFT lung is well aerated. 6. A few enlarged anterior mediastinal and paratracheal lymph nodes nonspecifi c but may be reactive. 7. Prior postoperative changes at the GE junction. Notified Rishabh Hernandez MD at 04/29/2021 3:18 PM.
--- NOTE | 2021-04-29 11:29 | XRR_ITS ---
PROCEDURE INFORMATION: Exam: XR Chest Exam date and time: 04/29/2021 11:29 AM Age: 60 years old Clinical indication: Pain; Angina pectoris; Additional info: Cp TECHNIQUE: Imaging protocol: XR of the chest. Views: 1 view. COMPARISON: CR XR chest 1V portable [id number] 04/08/2021 5:07 PM FINDINGS: Lungs: Unremarkable. No consolidation. Pleural spaces: Right lower lobe pleural effusion. No pneumothorax. Heart/Mediastinum: Unremarkable. No cardiomegaly. Bones/joints: Unremarkable. Other findings: Comparison to prior examination similar findings is seen XR/XR chest 1V portable [id number] IMPRESSION: 1. Right lower lobe pleural effusion 2. Otherwise No acute findings.
--- NOTE | 2021-04-29 11:31 | ECG_ITS ---
[facility] Test Date: 2021-04-29 Pat Name: Zenaida Madsen Department: Room: Gender: Female Water Purifier: : 1960 Requested By: Rishabh Hernandez Order Number: [id number] Nair MD: Monik Joyce M.D. Measurements Intervals [place] Rate: 95 P: 48 CA: 145 QRS: 68 QRSD: 82 T: 47 QT: 350 QTc: 440 Interpretive Statements SINUS RHYTHM WITH SINUS ARRHYTHMIA Compared to ECG 04/08/2021 16:31:28 No significant changes Electronically Signed On 04-30-2021 5:38:04 TOOL PROFILING MACHINE SET UP OPERATOR by Monik Joyce M.D. [id number]
--- NOTE | 2021-04-29 11:33 | W.ED.CHESTPA ---
HPI - Chest Pain General: Chief Complaint: General Medical Stated Complaint: CHEST PAIN POST SURGERY Time Seen by Provider: 04/29/21 11:22 History of Present Illness: 60-year-old female presents with chest pain. States this started yesterday. 1 week ago she had pleurodesis at [facility]. States she has noted some purulent drainage from incision site on the right lateral chest. Does report chest pain that is sharp but not pleuritic or exertional. Denies any shortness of breath. She is normally on 3 L by nasal cannula and has been so since Covid infection 1 year ago. Denies any lower extremity pain or swelling. Review of Systems Narrative: - CONSTITUTIONAL: Denies weight loss, fever and chills. - HEENT: Denies changes in vision and hearing. - RESPIRATORY: Denies SOB and cough. - CV: As above - GI: Denies abdominal pain, nausea, vomiting and diarrhea. - : Denies dysuria and urinary frequency. - MSK: Denies myalgia and joint pain. - SKIN: Denies rash and pruritus. - NEUROLOGICAL: Denies headache, weakness, numbness and syncope. - PSYCHIATRIC: Denies suicidal ideation PENDING SALE TO [facility] PFSH: Medical History Alcohol abuse Anxiety and depression CAD (coronary artery disease) has 2 stents Chronic obstructive pulmonary disease, unspecified Cigarette smoker COVID-19 (03/05/20) Essential (primary) hypertension Hepatic steatosis with hepatomegaly History of echocardiogram (03/06/20) Estimated EF 70%, normal diastolic function, normal pulmonary artery pressure, no valvular abnormality noted Intervertebral disc disorder with radiculopathy of lumbar region Low serum iron Mixed hyperlipidemia Morbid obesity BMI ~45 kg/m2 Osteoarthritis, chronic Personal history of nicotine dependence Slow transit constipation Vancomycin-induced nephrotoxicity (~06/2019) Vitamin D deficiency Surgical History H/O esophagogastroduodenoscopy (05/04/19) Status post gastric bypass with grade B esophagitis History of 2 sections History of cholecystectomy History of coronary artery stent placement History of gastric bypass History of hysterectomy History of left hip replacement History of right hip replacement S/P foot surgery, right 1) open trimalleolar fracture 05/2019 2) gangrene at operative site 06/2019 Status post colonoscopy with polypectomy (05/04/19) Descending colon polyp Family History Grandmother Hypertension Stroke Mother Hypertension Stroke Family/Other CAD (coronary artery disease) Denies family history of Diabetes Dementia Chronic kidney disease (CKD) Suicide Anesthesia complication Bleeding disorder Lung disease Cancer Social History Second hand smoke exposure: No Smoking risk assessment/counseling performed?: Yes Alcohol intake: current Alcohol intake frequency: 3 or more drinks per day Alcohol type: hard liquor Desire information about alcohol rehabilitation?: No Last alcohol use date: 06/16/19 Desire information about substance/drug rehabilitation?: No Counseling given: No Adopted: No Caregiver/support person: No Lives independently: Yes Household members: significant other Housing: House Marital status: Single Marital status details: Life partner Donny Nolen [phone] Number of children: 3 service: No Current occupational status: unemployed History of recent travel: No Current gender identity: Female Physical Exam Narrative: EXAM NARRATIVE: - GENERAL: Alert and oriented x 3. No acute distress. Well-nourished. - EYES: EOMI. Anicteric. - HENT: Atraumatic, no C-spine tenderness. Moist mucous membranes. No scleral icterus. No cervical lymphadenopathy. - LUNGS: Clear to auscultation bilaterally. No accessory muscle use. Equal lung sounds bilaterally. No respiratory distress. - CARDIOVASCULAR: Regular rate and rhythm. No murmur. No JVD. - ABDOMEN: Soft, non-tender and non-distended. Negative CVA tenderness bilaterally, no rebound or guarding, negative Javed sign. No palpable masses. - EXTREMITIES: No edema. Non-tender. - SKIN: Erythema and tenderness to right lateral chest wall. There is foul-smelling odor from incision sites. No crepitus. - NEUROLOGIC: No meningismus or focal neurological deficits. CN II-XII grossly intact. - PSYCHIATRIC: Cooperative. Appropriate mood and affect. Course Vital Signs: Vital signs: Vital Signs Pulse Rate 96 04/29/21 15:57 Respiratory Rate 18 04/29/21 15:57 Blood Pressure 111/77 04/29/21 15:57 Pulse Oximetry 95 04/29/21 15:57 MDM - Chest Pain Medical Decision Making 60-year-old presents due to lateral chest pain. States she recently had cardiothoracic surgery. CT scan does reveal pleural effusions however discussed with Dr. Perry at [facility] where she had the operation and he indicates that CT findings are to be expected after surgery and there is no sign of empyema or deep tissue infection. Recommends outpatient antibiotic treatment for cellulitis and follow-up in cardiothoracic surgery clinic tomorrow. Otherwise patient is hemodynamically stable afebrile nontoxic-appearing. She is on her baseline amount of oxygen by nasal cannula at 3 L. EKG and troponin do not reveal any sign of acute ischemia or other acute abnormality. Remainder of lab work unremarkable. Prescription for Keflex Bactrim and [place] provided. At this time I believe patient would be safe for discharge and outpatient follow-up. Return precautions provided. Plan was reviewed with the patient who expressed understanding. Questions answered. Patient will follow up with CT surgery and PCP. Patient discharged in stable condition. Lab Data : 04/29/21 13:00 04/29/21 13:00 Radiology Impressions Chest CTA 04/29/21 11:29 IMPRESSION: 1. Proximal main pulmonary arteries are normal. No evidence of pulmonary embolus. 2. Normal caliber thoracic aorta. 3. Small RIGHT pleural effusion with circumferential enhancing pleural thickening. Small amount of air in the RIGHT pleural effusion. Findings suspicious for developing pleural infection/empyema 4. Masslike consolidative atelectasis RIGHT lower lobe is similar to previous. 5. LEFT lung is well aerated. 6. A few enlarged anterior mediastinal and paratracheal lymph nodes nonspecific but may be reactive. 7. Prior postoperative changes at the GE junction. Notified Rishabh Hernandez MD at 04/29/2021 3:18 PM. Chest X-Ray 04/29/21 11:29 IMPRESSION: 1. Right lower lobe pleural effusion 2. Otherwise No acute findings. Laboratory Results WBC 8.1 10^3/uL (4.0-10.0) 04/29/21 13:00 RBC 4.53 10^6/uL (4.1-5.3) 04/29/21 13:00 Hgb 13.3 g/dL (11.5-15.3) 04/29/21 13:00 Hct 43.1 % (37.0-47.0) 04/29/21 13:00 MCV 95.1 fl (81-99) 04/29/21 13:00 MCH 29.4 pg (28.0-34.0) 04/29/21 13:00 MCHC 30.9 g/dL (30.0-36.0) 04/29/21 13:00 RDW 17.1 % (12.1-15.1) H 04/29/21 13:00 Plt Count 316 10^3/cmm (130-400) 04/29/21 13:00 MPV 9.8 fL (7.4-10.4) 04/29/21 13:00 Neut % (Auto) 71.9 % 04/29/21 13:00 Lymph % (Auto) 20.6 % 04/29/21 13:00 [place] % (Auto) 4.1 % 04/29/21 13:00 Eos % (Auto) 2.5 % 04/29/21 13:00 Baso % (Auto) 0.7 % 04/29/21 13:00 Neut # (Auto) 5.85 10^3/uL (1.8-7.7) 04/29/21 13:00 Lymph # (Auto) 1.7 10^3/uL (0.8-4.8) 04/29/21 13:00 [place] # (Auto) 0.3 10^3/uL (0.2-0.9) 04/29/21 13:00 Eos # (Auto) 0.2 10^3/uL (0.0-0.8) 04/29/21 13:00 Baso # (Auto) 0.1 10^3/uL (0.0-0.1) 04/29/21 13:00 Nucleated RBC % (auto) 0 % 04/29/21 13:00 Nucleated RBCs # 0.0 /100WBC 04/29/21 13:00 Sodium 140 mmol/L (136-145) 04/29/21 13:00 Potassium 4.6 mmol/L (3.5-5.1) 04/29/21 13:00 Chloride 106 mmol/L (98-107) 04/29/21 13:00 Carbon Dioxide 25 mmol/L (22-29) 04/29/21 13:00 Anion Gap 13.6 (5-19) 04/29/21 13:00 BUN 4 mg/dL (8-23) L 04/29/21 13:00 Creatinine 0.7 mg/dL (0.5-0.9) 04/29/21 13:00 GFR Calculation 85.1 mL/min (90-130) L 04/29/21 13:00 Glucose 78 mg/dL (65-115) 04/29/21 13:00 Calculated Osmolality 286 mOsm/kg (285-295) 04/29/21 13:00 Lactate 1.6 mmol/L (0.5-2.2) 04/29/21 13:00 Calcium 8.3 mg/dL (8.5-10.5) L 04/29/21 13:00 Total Bilirubin 0.3 mg/dL (0.15-1.2) 04/29/21 13:00 AST 72 U/L (0-32) H 04/29/21 13:00 ALT 29 U/L (0-33) 04/29/21 13:00 Alkaline Phosphatase 227 IU/L (35-105) H 04/29/21 13:00 Troponin T Baseline 23 ng/L (0-10) H 04/29/21 13:00 Troponin T 120 Minute 21.84 ng/L (0-10) H 04/29/21 15:29 Delta Troponin T -1.16 ABS# (0-10) L 04/29/21 15:29 NT-Pro-B Natriuret Pep 212 pg/mL (0-125) H 04/29/21 13:00 Total Protein 6.3 g/dL (6.6-8.7) L 04/29/21 13:00 Albumin 2.9 g/dL (3.5-5.2) L 04/29/21 13:00 Globulin 3.4 g/dL (1.3-4.6) 04/29/21 13:00 SARS-CoV-2 Ag (Rapid) Negative (Negative) 04/29/21 12:09 Other Data Sinus rhythm with sinus arrhythmia, rate of 95, no sign of acute ischemia or other acute abnormality. Discharge Plan Discharge Patient Disposition: Home Clinical Impression: Cellulitis, Chest pain Condition: Stable Prescriptions: New hydrocodone-acetaminophen 5-325 mg tablet 1 tab PO Q8H PRN (Reason: pain) 3 Days Qty: 9 0RF Bactrim DS 800-160 mg tablet 1 tab PO BID 7 Days Qty: 14 0RF cephalexin 500 mg tablet 500 mg PO QID 7 Days Qty: 28 0RF No Action (DME) lace up ankle brace See Rx Instructions .Route .MEDSUPPLY Qty: 1 0RF Rx Instructions: As directed (DME) inogen system See Rx Instructions .Route .MEDSUPPLY Qty: 1 0RF Rx Instructions: As directed inogen system 2 liters continuous 24 hour albuterol sulfate [Ventolin HFA] 90 mcg/actuation HFA aerosol inhaler 1 puff INHALATION Q6H PRN (Reason: SHORTNESS OF BREATH/WHEEZING) Qty: 8.5 2RF albuterol sulfate 2.5 mg /3 mL (0.083 %) solution for nebulization 2.5 mg INHALATION Q4H MDD SEE PHARMACY COMMENT PRN (Reason: Shortness Of Breath) Qty: 75 2RF carvedilol 25 mg tablet 12.5 mg PO BID@0900,1800 Qty: 60 2RF Hold Instructions: Low BP clopidogrel [Plavix] 75 mg tablet 75 mg PO DAILY@0900 Qty: 30 2RF cyclobenzaprine 10 mg tablet 10 mg PO TID MDD SEE PHARMACY COMMENT PRN (Reason: Muscle Spasm) Qty: 30 2RF duloxetine 60 mg capsule,delayed release(DR/EC) 60 mg PO BID@0900,1800 Qty: 60 2RF fluticasone propion-salmeterol [Advair Diskus] 500-50 mcg/dose blister with device 1 ea inhalation BID Qty: 60 2RF furosemide [Lasix] 20 mg tablet 20 mg PO DAILY Qty: 30 2RF gabapentin 300 mg capsule See Rx Instructions .ROUTE .COMPLEX Qty: 150 2RF Rx Instructions: 600 mg orally IN THE MORNING/ 300MG AT NOON/ 600MG IN THE EVENING hydroxyzine HCl 50 mg tablet 50 mg PO BID PRN (Reason: anxiety) Qty: 60 2RF pantoprazole [Protonix] 40 mg tablet,delayed release (DR/EC) 40 mg PO BID@0900,1800 Qty: 60 2RF rosuvastatin 40 mg tablet 40 mg PO BEDTIME@2200 Qty: 30 2RF tramadol 50 mg tablet 50 mg PO Q4H Qty: 90 2RF Incruse Ellipta 62.5 mcg/actuation blister with device 1 inh INHALATION DAILY Qty: 30 2RF ondansetron HCl 8 mg tablet 8 mg PO Q8H PRN (Reason: nausea and vomiting) Qty: 21 0RF (DME) Wheelchair See Rx Instructions .ROUTE .MEDSUPPLY Qty: 1 0RF Rx Instructions: As directed calcium carbonate-vitamin D3 [Os-Lebron 500 + D3] 500mg (1,250mg) -600 unit tablet 1 tab PO DAILY 30 Days Qty: 30 2RF cholecalciferol (vitamin D3) [Vitamin D3] 125 mcg (5,000 unit) tablet 5,000 unit PO DAILY@0900 0RF Hemorrhoidal Cream 1 applic SC BID PRN (Reason: Pain/DISCOMFORT) 0RF lisinopril 20 mg tablet 10 mg PO DAILY Qty: 1 0RF Rx Instructions: Has at home will restart Discharge Orders: Discharge ED (Routine); Ordered 04/29/21 Ordered By: Rishabh Hernandez Referrals: Your, surgeon [Other] (Please follow-up with cardiothoracic surgery clinic at [place] tomorrow.) Jadiel Munoz, AUTOMOTIVE WINDOW TINTER-C [Primary Care Provider] - 1-3 days Patient Instructions: Chest Pain (ED), Cellulitis (ED), Opioid Safety Coding Level of Care Code ED Uniforms Sales Representative for Michael Pool
[2021-04-29] MEDS: sodium chloride 0.9% 1,000 ML 999 ML IV (11:51)
[2021-04-29] MEDS: cefepime 2,000 MG in sodium chloride 0.9% (plus) 50 ML 100 MG IV (11:51)
[2021-04-29] MEDS: acetaminophen 500 mg Tablet PO (12:35)
[2021-04-29 12:49] LABS: SARS Covid-2 Antigen Negative (Negative)
[2021-04-29 13:14] LABS: Basophils # 0.1 10^3/uL (0.0-0.1); Basophils % 0.7 %; Eosinophils # 0.2 10^3/uL (0.0-0.8); Eosinophils % 2.5 %; Hematocrit 43.1 % (37.0-47.0); Hemoglobin 13.3 g/dL (11.5-15.3); Lymphocytes # 1.7 10^3/uL (0.8-4.8); Lymphocytes % 20.6 %; Mean Corpuscular HGB Conc 30.9 g/dL (30.0-36.0); Mean Corpuscular Hemoglobin 29.4 pg (28.0-34.0); Mean Corpuscular Volume 95.1 fl (81-99); Mean Platelet Volume 9.8 fL (7.4-10.4); Monocytes # 0.3 10^3/uL (0.2-0.9); Monocytes % 4.1 %; Neutrophils # 5.85 10^3/uL (1.8-7.7); Neutrophils % 71.9 %; Nucleated Red Blood Cells % 0 %; Platelet Count 316 10^3/cmm (130-400); Red Blood Count 4.53 10^6/uL (4.1-5.3); Red Cell Distribution Width 17.1 % (12.1-15.1); White Blood Count 8.1 10^3/uL (4.0-10.0)
[2021-04-29 13:25] LABS: Lactate (Lactic Acid level) 1.6 mmol/L (0.5-2.2)
--- NOTE | 2021-04-29 13:31 | ECG_ITS ---
[facility] Test Date: 2021-04-29 Pat Name: Zenaida Madsen Department: Room: Gender: Female Union Contract Representative: : 1960 Requested By: Rishabh Hernandez Order Number: [id number] Nair MD: Monik Joyce M.D. Measurements Intervals [place] Rate: 93 P: [place]: QRS: 38 QRSD: 78 T: 52 QT: 361 QTc: 449 Interpretive Statements SUPRAVENTRICULAR RHYTHM ABNORMAL RHYTHM ECG Compared to ECG 04/29/2021 12:13:15 Supraventricular rhythm now present Sinus rhythm no longer present Sinus arrhythmia no longer present Electronically Signed On 04-30-2021 5:50:20 CARPET LOOM FIXER by Monik Joyce M.D. [id number]
[2021-04-29 13:32] LABS: Troponin(5th) Baseline 23 ng/L (0-10)
[2021-04-29 13:41] LABS: Alanine Aminotransferase 29 U/L (0-33); Albumin Level 2.9 g/dL (3.5-5.2); Alkaline Phosphatase 227 IU/L (35-105); Anion Gap 13.6 (5-19); Aspartate Amino Transferase 72 U/L (0-32); Blood Urea Nitrogen 4 mg/dL (8-23); Calcium 8.3 mg/dL (8.5-10.5); Carbon Dioxide 25 mmol/L (22-29); Chloride 106 mmol/L (98-107); Globulin 3.4 g/dL (1.3-4.6); Glomerular Filtration Rate 85.1 mL/min (90-130); Glucose 78 mg/dL (65-115); NT Pro B Type Natriuretic Pept 212 pg/mL (0-125); Osmolality Calculated 286 mOsm/kg (285-295); Potassium 4.6 mmol/L (3.5-5.1); Sodium 140 mmol/L (136-145); Total Bilirubin 0.3 mg/dL (0.15-1.2); Total Protein 6.3 g/dL (6.6-8.7)
[2021-04-29 14:00] VITALS: RESP 20
[2021-04-29] MEDS: ondansetron 2 mg/ML SDV 2 mL 4 MG IVP (14:00)
[2021-04-29] MEDS: morphine 4 mg/mL SDV 1 mL IVP (14:00)
--- NOTE | 2021-04-29 14:02 | PC.NURSE ---
EKG DONE AT 1400
[2021-04-29] MEDS: iohexol 350 mg/mL 100 mL Btl IV (14:21)
[2021-04-29 14:57] VITALS: BP 173/93; PULSE 93; RESP 20; O2SAT 93
[2021-04-29 15:57] VITALS: BP 111/77; PULSE 96; RESP 18; O2SAT 95
[2021-04-29 16:04] LABS: Troponin 5 2HR 21.84 ng/L (0-10)
[2021-04-29 16:08] LABS: Troponin 5 2HR Delta -1.16 ABS# (0-10)
[2021-04-29 17:31] VITALS: BP 124/83; PULSE 90; RESP 20; O2SAT 94
== END 2021-04-29 17:33 | disposition home or self-care (01) ==
PROVIDERS: Emergency Provider Emergency Medicine; PCP Nurse Practitioner
DX: R07.9 Chest pain, unspecified (principal); L03.313 Cellulitis of chest wall; I25.10 Atherosclerotic heart disease of native coronary artery without angina pectoris; J44.9 Chronic obstructive pulmonary disease, unspecified; I10 Essential (primary) hypertension; E78.2 Mixed hyperlipidemia; Z79.02 Long term (current) use of antithrombotics/antiplatelets; Z20.822 Contact with and (suspected) exposure to COVID-19
CPT/HCPCS: 36415; 71045; 71275; 80053; 83605; 83880; 84484; 85025; 87040; 87426; 93005; 96365; 96366; 96367; 96375; 99284; J0692; J2270; J2405; J3370; J7030; J7040; Q9967

== ENCOUNTER → 2021-05-12 14:03 | Outpatient (BNVA) | payer MEDICARE, MEDICAID, SELFPAY | PROVIDERS: PCP Nurse Practitioner; Visit Provider Internal Medicine Cardiovascular Disease | DX: I73.9 Peripheral vascular disease, unspecified (principal); I11.0 Hypertensive heart disease with heart failure; I50.33 Acute on chronic diastolic (congestive) heart failure; M79.605 Pain in left leg; F17.210 Nicotine dependence, cigarettes, uncomplicated | CPT/HCPCS: 80048; 83880; 99214 ==

== ENCOUNTER 2021-05-13 08:33 | Outpatient (CLI) | payer MEDICARE, MEDICAID, SELFPAY ==
[2021-05-13 09:16] LABS: Basophils % 0.4 %; Eosinophils # 0.2 10^3/uL (0.0-0.8); Eosinophils % 2.1 %; Hematocrit 41.9 % (37.0-47.0); Hemoglobin 13.1 g/dL (11.5-15.3); Mean Corpuscular HGB Conc 31.3 g/dL (30.0-36.0); Mean Corpuscular Hemoglobin 29.5 pg (28.0-34.0); Mean Corpuscular Volume 94.4 fl (81-99); Mean Platelet Volume 9.7 fL (7.4-10.4); Monocytes # 0.8 10^3/uL (0.2-0.9); Monocytes % 9.8 %; Neutrophils # 5.17 10^3/uL (1.8-7.7); Neutrophils % 63.5 %; Nucleated Red Blood Cells % 0 %; Platelet Count 208 10^3/cmm (130-400); Red Blood Count 4.44 10^6/uL (4.1-5.3); Red Cell Distribution Width 17.1 % (12.1-15.1); White Blood Count 8.1 10^3/uL (4.0-10.0)
[2021-05-13 09:35] LABS: Ferritin 102 ng/mL (15-150); Iron 26 ug/dL (37-145); Percent Saturation 14.2 % (20-50); Total Iron Binding Capacity 183 mcg/dl; Unsaturated Iron Binding 157 ug/dL (112-347)
[2021-05-13 09:51] LABS: Vitamin B12 471 pg/mL (232-1245)
[2021-05-13] MEDS: ferric carboxy (IVPB) 750 MG in sodium chloride 0.9% (100 ml) 100 ML 460 MG IV (11:00)
[2021-05-13] MEDS: cyanocobalamin 1,000 mcg/mL SDV 1000 MCG SUBCUT (11:35)
--- NOTE | 2021-05-13 16:27 | ONC FU_ITS ---
Chuyita Andersen Progress Note Patient: Zenaida Madsen Unit #: [id number]: 1960 Dicatated By: Chuyita Andersen N.P.Date of Visit:May 13, 2021 Onc MED Follow-up/Prog Note Chief Complaint: Combined iron/B12 deficiency anemia, history of gastric bypass for weight reduction History of Present Illness: Ms. Zenaida Madsen, 60-year-old female with history of gastric bypass done in 2000 for weight reduction, as per patient during follow-up she was never informed about low hemoglobin until recently when her routine follow-up lab work-up showed progressive anemia as labs done on May 06, 2020 showed white blood count 9.3 hemoglobin 9 5 hematocrit 34.4 platelets 437,000 MCV 76.1 and repeat CBC on May 10, 2020 showed white blood count 10.6 hemoglobin 8.6 hematocrit 31.3 MCV 74.2 platelets 392,000, anemia work-up done by PMD on May 13, 2020 showed iron 18 iron saturation 4.4, TIBC 4.2, B12 173, folate more than 20, consistent with combined B12 iron deficiency anemia. Patient is complaining of progressive generalized weakness and fatigue as per patient she had a right ankle fracture due to fall subsequently developed nonhealing ulcer, which has almost resolved now and then she had a left ankle fracture again due to fall and now being monitored by orthopedics. As per patient in March 2020 she received a unit of packed RBC for generalized weakness and fatigue and severe anemia and she also underwent EGD and colonoscopy in April 2019 which showed patent JG anastomosis and grade B esophagitis., No evidence of H. pylori and colonoscopy was also unremarkable except internal hemorrhoids and 5 mm sessile polyp was removed from descending colon. Patient never received parenteral iron in the past but recently started on B12 shot Status post Injectafer 750 mg IV weekly x2 on July 01 and July 08, 2020 with excellent response, normalization of iron deficiency anemia as well as replenish iron stores Patient presents today for follow-up. She continues to have some fatigue. Her last Injectafer infusion was in June 2020. She has a history of gastric bypass which could be contributing to low iron levels due to malabsorption. She recently had a procedure on her right lung for pleural effusion at [facility]. This procedure was performed 3 weeks ago but patient was unable to provide much information about what occurred other than she had a lap procedure and has a dressing that is dry and intact on the right chest wall. She states her appetite has been good. She denies fever, chills, night sweats. No sinus drainage or sore throat. She has shortness of breath with exertion but this has been a chronic condition. No cough. She does have chest pain related to her incision but no cardiac pain. She denies any GI or problems. No joint or bone pain. No headaches or dizziness. Review Of Symptoms:See above. Past Medical History: Alcohol abuse Anxiety Coronary artery disease Depression Hepatic steatosis with hepatomegaly Hyperlipidemia Hypertension Intervertebral disc disorder Lumbar radiculopathy Osteoarthritis Vancomycin induced nephrotoxicity Vitamin D deficiency Covid 19 in 2020 Past Surgical History: Caesarean section Cholecystectomy Coronary stent placement Gastric bypass Hysterectomy Left hip replacement Right hip replacement Covid vaccine # 2 moderna in 2020 Covid vaccine # 1 moderna in 2020 Allergies: Ciprofloxacin HCl and Doxycycline Monohydrate. Medications: 1Umeclidinium [place] 1 Inhalation (of 62.5 mcg/inh) Aerosol Powder, Breath Activated Inhalation daily Advair Diskus 1 Inhalation (of 500-50 mcg/dose) Aerosol Powder, Breath Activated Inhalation b.i.d. Albuterol Sulfate 1 Ampule (of (2.5 mg/3ml) 0.083%) Nebulization solution Inhalation q 4 hours PRN B Complex-Vitamin C 1 Tablet Capsule Oral daily Cholecalciferol 1 Caplet (of 125 mcg ) Capsule Oral daily Crestor 1 Tablet (of 40 mg) Oral daily Cyclobenzaprine HCl 1 Tablet (of 10 mg) Oral q 8 hours PRN Cymbalta 1 Caplet (of 60 mg) Capsule Delayed Release Particles Oral b.i.d. Furosemide 1 Tablet (of 20 mg) Oral q 1 day PRN Gabapentin (600 mg) Tablet Oral Take as Directed hydrOXYzine HCl 1 Tablet (of 50 mg) Oral q 12 hours PRN Meclizine HCl 1 Tablet (of 25 mg) Oral b.i.d. PRN Medihoney Wound/Burn Dressing 1 Applicatorful Gel (jelly) Topical b.i.d. Plavix 1 Tablet (of 75 mg) Oral daily Potassium Chloride ER 1 Tablet (of 8 meq) Capsule, controlled release Oral q PRN Protonix 1 Tablet (of 40 mg) Tablet, enteric coated Oral b.i.d. Pulmicort 1 Ampule (of 1 mg/2mL) Suspension Inhalation b.i.d. traMADol HCl 1 Tablet (of 50 mg) Oral q 4 hours PRN Ventolin HFA 1 Puff(s) (of 108 (90 base) mcg/act) Aerosol, solution Inhalation q 4 hours PRN Family History: Ms. Madsen's mother at age 58: hypertension, and stroke. Ms. Madsen has 1 brother who is alive. She has 2 sisters: 2 alive. Social History: Ms. Madsen has a life partner. She is a daily smoker who smokes 0.5 packs/day. She drinks daily. She consumes 3 drinks/day 7 days/week. She has indicated exposure to the following products: cigarettes. Physical Examination: Performed on May 13, 2021 10:17: Height - 64 in, Weight - 269.0 lbs (LOW), BSA - 2.22 sq.m, BMI - 46.17 (HIGH), Temperature - 97.9 F (LOW), Pulse - 102 /min (HIGH), Respiration - 18 /min, BP - 126/79 mm(hg), O2 Sat - 96 %, Pain - 7, and Fatigue - 6. Performance Status: 2 - Ambulatory/capable of all self-care, unable to perform any work activities. Up and about more than 50% of waking hours. (ECOG) Constitutional Alert, cooperative, oriented. Mood and affect appropriate. Appears close to chronological age. Well nourished. Well developed. Respiratory Lungs clear bilaterally. Decreased breath sounds to right middle and lower lobe. Dressing to right side of chest dry and intact. Cardiovascular Regular rate and rhythm of heart without murmurs, gallops or rubs. Abdomen Non-tender, non-distended, no masses, ascites or hepatosplenomegaly. Good bowel sounds. No guarding or rebound tenderness. Extremities No visible deformities, no cyanosis, clubbing or edema. Pulses 3+ and equal bilaterally. Psychiatric Alert and oriented times three. Coherent speech. Verbalizes understanding of our discussions today. Laboratory: Test performed on May 13, 2021 09:05 Ferritin 102 ng/mL Folate, Serum 6.0 ng/mL Iron 26 mcg/dL Vitamin B12 471 pg/mL Iron Binding Capacity (TIBC) 183 mcg/dl % Iron Saturation 14.2 % UIBC 157 mcg/dL WBC 8.1 10 3/uL RBC 4.44 10 6/uL HGB 13.1 g/dL HCT 41.9 % MCV 94.4 fl MCH 29.5 pg MCHC 31.3 g/dL RDW 17.1 % Platelet Count 208 10 3/cmm MPV 9.7 fL Neutrophils 5.17 10 3/uL Lymphocytes 2.0 10 3/uL Monocytes 0.8 10 3/uL Eosinophils 0.2 10 3/uL Basophils 0.0 10 3/uL Neutrophil % 63.5 % Lymphocyte % 24.0 % Monocyte % 9.8 % Eosinophil % 2.1 % Basophils % 0.4 % NRBC % 0 % Impression: Microcytic hypochromic anemia due to iron deficiency due to most likely iron malabsorption due to GJ anastomosis for weight reduction or chronic GI blood loss. Also B12 deficiency again due to malabsorption. History of gastric bypass for weight reduction in 2020 Status post Injectafer 750 mg IV weekly x2 in June 2020 with excellent response, Normalization of anemia, hemoglobin 13 g on August 05, 2020 compared to 8.2 g prior to infusion Obesity Plan: Labs were reviewed with patient with ferritin at 102, iron saturation 14.2, iron 26, hemoglobin 13.1 hematocrit 41.9, and vitamin B12 at 471. Due to patient's fatigue and iron level being low and iron saturation being low with ferritin within the normal range we will administer Injectafer 750 mg 1 time and she will receive a B12 injection today and for the next 2 months. She will return to clinic in 1 month with CBC and iron studies. Signed By: Chuyita Andersen, N.P. <<Signature on File>>
== END 2021-05-13 08:34 | disposition home or self-care (01) ==
PROVIDERS: PCP Nurse Practitioner; Visit Provider Internal Medicine Hematology & Oncology
DX: D50.9 Iron deficiency anemia, unspecified (principal); D51.9 Vitamin B12 deficiency anemia, unspecified; Z98.84 Bariatric surgery status; F41.9 Anxiety disorder, unspecified; I25.10 Atherosclerotic heart disease of native coronary artery without angina pectoris; F32.A Depression, unspecified; E78.5 Hyperlipidemia, unspecified; I10 Essential (primary) hypertension; E66.9 Obesity, unspecified; Z79.899 Other long term (current) drug therapy
CPT/HCPCS: 82607; 82728; 82746; 83540; 83550; 85025; 96365; 96372; 99215; J3420

== ENCOUNTER 2021-05-19 10:29 | Outpatient (CLI) | payer MEDICARE, MEDICAID, SELFPAY ==
[2021-05-19] MEDS: ferric carboxy (IVPB) 750 MG in sodium chloride 0.9% (100 ml) 100 ML 460 MG IV (11:05)
[2021-05-19] MEDS: sodium chloride 0.9% 500 ML 999 ML IV (11:30)
[2021-05-19] MEDS: famotidine 20 mg/2 mL INJ IVP (14:44)
[2021-05-19] MEDS: sodium chloride 0.9% (100 ml) 100 ML 75 ML (14:46)
== END 2021-05-19 10:30 | disposition home or self-care (01) ==
PROVIDERS: PCP Nurse Practitioner; Visit Provider Internal Medicine Hematology & Oncology
DX: D50.9 Iron deficiency anemia, unspecified (principal)
CPT/HCPCS: 96365; 96366; 96375; J1439; J2930; J3490; J7040

== ENCOUNTER 2021-05-23 13:37 | Outpatient (CLI) | payer MEDICARE, MEDICAID, SELFPAY ==
--- NOTE | 2021-05-23 13:45 | USCV_ITS ---
Zenaida Madsen Age: 61 Gender: F : 1960 Exam Date: 05/23/2021 13:56 Ordering Phys: Aimee Pelaez MD ([email or web address]) Technologist: Rubi Zendejas Exam Location: [facility] – [place] Indication: SWOLLEN LT LEG HISTORY: SWOLLEN LEFT LEG PROCEDURES: Venous duplex imaging was performed in only the left lower extremity. The following venous structures were evaluated: common femoral vein, profunda vein, proximal portion of the greater saphenous vein, superficial femoral vein, and the popliteal vein. In addition, the posterior tibial and peroneal trunk were evaluated. Serial compression, augmentation maneuvers, and spectral Doppler flow evaluation were performed. FINDINGS: Normal 2-D Doppler and augmentation and compressibility throughout the lower extremity venous structures. Additional imaging through the proximal calf veins also reveals no thrombus. Limited evaluation of the greater saphenous vein is patent with no thrombus. CONCLUSIONS No DVT left lower extremity. Dr. Caryl Garcia DO (Electronically Signed) Final Date: 23 May 2021 16:31 S
== END 2021-05-23 13:38 | disposition home or self-care (01) ==
LOC: RAD 13:40
PROVIDERS: PCP Nurse Practitioner; Visit Provider Internal Medicine Cardiovascular Disease
DX: M79.89 Other specified soft tissue disorders (principal)
CPT/HCPCS: 93971

== ENCOUNTER → 2021-06-17 08:41 | Outpatient (BNVA) | payer MEDICARE, MEDICAID, SELFPAY | PROVIDERS: PCP Nurse Practitioner; Visit Provider Surgery | DX: R10.9 Unspecified abdominal pain (principal); F17.210 Nicotine dependence, cigarettes, uncomplicated | CPT/HCPCS: 99214 ==

== ENCOUNTER 2021-06-19 11:59 | Emergency (ER) | payer MEDICARE, MEDICAID, SELFPAY ==
[2021-06-19 12:12] VITALS: BP 126/75; PULSE 98; RESP 18; TEMP 36.9; O2SAT 99; BMI 45.3
[2021-06-19 12:20] VITALS: BP 113/66; PULSE 97; RESP 20; O2SAT 99
--- NOTE | 2021-06-19 12:24 | ED_ITS ---
HPI - General Adult General: Chief complaint: Abdominal Pain Stated complaint: ABD PAIN, N/V Time Seen by Provider: 06/19/21 12:04 History of Present Illness: Patient is a 61-year-old female with a history of prior appendectomy, cholecystectomy, gastric bypass presenting to the emergency room with 1 week worsening generalized abdominal pain, nausea and vomiting. Per patient, about a week ago she began developing upper abdominal pain and then has then became generalized constant ache. Occasional, patient reports stabbing pain lasting for few minutes at a time. Every single day patient has had more than 5 episodes of vomiting. Patient denies any melena/hematochezia, urinary complaints, prior history of kidney stones, or new vaginal discharge. Patient denies any chest pain, shortness breath, palpitation lightheadedness, nausea/vomiting fever/chills. Onset:1 week ago Duration:1 week Location:home Severity:moderate Associated symptoms: Reports nausea; Deny chest pain, dyspnea, rash, palpitations or vomiting Review of Systems Const: Denies: fever(s) or chills Eyes: Denies: change in vision ENMT: Denies: mouth pain Card: Denies: chest pain or palpitations Resp: Denies: dyspnea or non-productive cough GI: Reports: abdominal pain and nausea; Denies: vomiting or diarrhea : Denies: dysuria Musc: Denies: extremity pain Skin/Breast: Denies: rash or new lesions Neuro: Denies: weakness in extremities Psych: Reports: other (Normal mood) Issac/Lymph: Denies: easy bruising PFSH ED PFSH: Medical History Alcohol abuse Anxiety and depression CAD (coronary artery disease) has 2 stents Chronic obstructive pulmonary disease, unspecified Cigarette smoker COVID-19 (03/05/20) Essential (primary) hypertension Hepatic steatosis with hepatomegaly History of echocardiogram (03/06/20) Estimated EF 70%, normal diastolic function, normal pulmonary artery pressure, no valvular abnormality noted Intervertebral disc disorder with radiculopathy of lumbar region Low serum iron Mixed hyperlipidemia Morbid obesity BMI ~45 kg/m2 SVETLANA (obstructive sleep apnea) Osteoarthritis, chronic Personal history of nicotine dependence Slow transit constipation Vancomycin-induced nephrotoxicity (~06/2019) Vitamin D deficiency Surgical History H/O esophagogastroduodenoscopy (05/04/19) Status post gastric bypass with grade B esophagitis History of 2 sections History of cholecystectomy History of coronary artery stent placement History of gastric bypass History of hysterectomy History of left hip replacement History of right hip replacement S/P foot surgery, right 1) open trimalleolar fracture 05/2019 2) gangrene at operative site 06/2019 Status post colonoscopy with polypectomy (05/04/19) Descending colon polyp Family History Grandmother Hypertension Stroke Mother Hypertension Stroke Family/Other CAD (coronary artery disease) Denies family history of Diabetes Dementia Chronic kidney disease (CKD) Suicide Anesthesia complication Bleeding disorder Lung disease Cancer Social History Smoking and tobacco status: current every day smoker cigarettes Packs smoked per day: 0.5 Second hand smoke exposure: No Smoking risk assessment/counseling performed?: Yes Alcohol intake: current Alcohol intake frequency: 3 or more drinks per day Alcohol type: hard liquor Desire information about alcohol rehabilitation?: No Last alcohol use date: 06/16/19 Desire information about substance/drug rehabilitation?: No Counseling given: No Adopted: No Caregiver/support person: No Lives independently: Yes Household members: significant other Housing: House Marital status: Single Marital status details: Life partner Donny Nolen [phone] Number of children: 3 service: No Current occupational status: unemployed History of recent travel: No Current gender identity: Female Physical Exam Const: COMMON NORMALS: alert HENMT: COMMON NORMALS: atraumatic HEAD & SCALP: atraumatic MOUTH: moist mucous membranes not abnormal Eye: COMMON NORMALS: EOMs intact bilaterally and conjunctivae normal CONJUNCTIVA: Yes conjunctivae normal Neck/C-Spine: COMMON NORMALS: full ROM and supple Resp: COMMON NORMALS: normal respiratory effort and clear to auscultation bilaterally AUSCULTATION: clear to auscultation bilaterally Cardio: COMMON NORMALS: regular rate RATE: regular rate GI: COMMON NORMALS: Soft to palpation PALPATION: Yes Soft to palpation OTHER: +diffuse abd TTP. NO guarding rebound, guarding, rigidity. No CVA tenderness to percussion. Neg Javed/Neg McBurney's point tenderness, no suprabupic tenderness to palpation. Extremity: COMMON NORMALS: full ROM Neuro: SENSORIUM/ORIENTATION: Yes alert MOTOR EXAM: No Abnormal motor str ength present and Other motor observations present (no focal motor deficits) Psych: COMMON NORMALS: speech normal SPEECH: Yes normal speech MOOD & AFFECT: Yes euthymic mood Course Vital Signs: Vital signs: Vital Signs Temperature 98.4 F 06/19/21 12:12 Pulse Rate 70 06/19/21 16:00 Respiratory Rate 20 H 06/19/21 16:00 Blood Pressure 108/71 06/19/21 16:00 Pulse Oximetry 96 06/19/21 16:00 MDM - General Adult Medical Decision Making 61-year-old female with history of appendectomy cholecystectomy presents emergency room with complaints of abdominal pain and nausea/vomiting. Patient has diffuse abdominal tenderness to palpation. Hemodynamically stable. WBC of 10.2. Patient is noted to be hemoconcentrated 15.7. CT abdomen pelvis showed possible colitis. Patient is noted to have chronic right pleural enhancement suspicious for empyema. I discussed this with patient. Given the fact patient is afebrile, no respiratory distress or difficulty breathing, we will have patient follow-up closely with pulmonology. Discharge patient home with outpatient empiric antibiotics for coverage of empyema. Patient is aware of these antibiotics and reassures me that she will take them. I have given patient follow up with our case folder to be seen by our outpatien t pulmonology for further evaluation of pleural enhancement vs empyema. Patient aware of a call from our case folder to schedule for appointment(s) and verbalizes understanding of the importance of following up. Patient reassures me that she will follow-up with her primary care provider for further evaluation of the colitis. Rx cefdinir and metrondazole for empyema on CT Disposition: Discharge. Patient counseled regarding diagnostic impression, treatment plan. Patient given ED strict return precautions to return for continuation, worsening, or development of new symptoms. Instructed to f/u w/ PCP and Pulmonology regarding symptoms today. Patient verbalized understanding. Lab Data : 06/19/21 12:29 06/19/21 12:29 Radiology Impressions Abdomen/Pelvis CT 06/19/21 12:30 IMPRESSION: 1. Evidence of gastroenteritis with mucosal enhancement involving the stomach and duodenum. 2. Prior Gastric bypass. 3. Mild diffuse thickening with mucosal enhancement and inflammatory stranding involving the RIGHT colon and more prominent involving the RIGHT hepatic flexure proximal transverse colon compatible with infectious or inflammatory colitis. 4. No evidence of high-grade small or large bowel obstruction. 5. Small RIGHT pleural effusion with pleural enhancement suspicious for empyema has improved compared to April 29, 2021. Persistent masslike consolidation RIGHT lower lobe is unchanged. 6. Small amount of perihepatic fluid. Small amount of fluid in the pericolic gutters. No drainable ascites. 7. No other significant changes compared to previous. Laboratory Results WBC 10.2 10^3/uL (4.0-10.0) H 06/19/21 12: RBC 5.01 10^6/uL (4.1-5.3) 06/19/21 12: Hgb 15.7 g/dL (11.5-15.3) H 06/19/21 12: Hct 47.9 % (37.0-47.0) H 06/19/21 12: MCV 95.6 fl (81-99) 06/19/21 12:29 MCH 31.3 pg (28.0-34.0) 06/19/21 12:29 MCHC 32.8 g/dL (30.0-36.0) 06/19/21 12: RDW 16.9 % (12.1-15.1) H 06/19/21 12:29 Plt Count 140 10^3/cmm (130-400) 06/19/21 12:29 MPV 10.4 fL (7.4-10.4) 06/19/21 12:29 Neut % (Auto) 72.9 % 06/19/21 12:29 Lymph % (Auto) 14.8 % 06/19/21 12:29 [place] % (Auto) 10.8 % 06/19/21 12: Eos % (Auto) 0.9 % 06/19/21 12: Baso % (Auto) 0.4 % 06/19/21 12:29 Neut # (Auto) 7.45 10^3/uL (1.8-7.7) 06/19/21 12:29 Lymph # (Auto) 1.5 10^3/uL (0.8-4.8) 06/19/21 12:29 [place] # (Auto) 1.1 10^3/uL (0.2-0.9) H 06/19/21 12:29 Eos # (Auto) 0.1 10^3/uL (0.0-0.8) 06/19/21 12:29 Baso # (Auto) 0.0 10^3/uL (0.0-0.1) 06/19/21 12: Nucleated RBC % (auto) 0 % 06/19/21 12: Nucleated RBCs # 0.0 /100WBC 06/19/21 12:29 Sodium 137 mmol/L (136-145) 06/19/21 12:29 Potassium 3.6 mmol/L (3.5-5.1) 06/19/21 12: Chloride 99 mmol/L (98-107) 06/19/21 12: Carbon Dioxide 28 mmol/L (22-29) 06/19/21 12:29 Anion Gap 13.6 (5-19) 06/19/21 12: BUN 4 mg/dL (8-23) L 06/19/21 12:29 Creatinine 0.8 mg/dL (0.5-0.9) 06/19/21 12:29 GFR Calculation 72.7 mL/min (90-130) L 06/19/21 12: Glucose 85 mg/dL (65-115) 06/19/21 12: Calculated Osmolality 280 mOsm/kg (285-295) L 06/19/21 12: Calcium 8.6 mg/dL (8.5-10.5) 06/19/21 12: Total Bilirubin 1.3 mg/dL (0.15-1.2) H 06/19/21 12:29 AST 121 U/L (0-32) H 06/19/21 12:29 ALT 39 U/L (0-33) H 06/19/21 12:29 Alkaline Phosphatase 396 IU/L (35-105) H 06/19/21 12:29 Total Protein 6.1 g/dL (6.6-8.7) L 06/19/21 12:29 Albumin 2.1 g/dL (3.5-5.2) L 06/19/21 12:29 Globulin 4.0 g/dL (1.3-4.6) 06/19/21 12:29 Lipase 9 U/L (13-60) L 06/19/21 12:29 Urine Color Dark yellow (Yellow) 06/19/21 14:34 Urine Appearance Clear (CLEAR) 06/19/21 14:34 Urine pH 5 (5-7) 06/19/21 14:34 Ur Specific Coulters 1.005 (1.005-1.030) 06/19/21 14:34 Urine Protein Neg (Negative) 06/19/21 14:34 Urine Glucose (UA) Norm (Normal) 06/19/21 14:34 Urine Ketones 1+ (Negative) H 06/19/21 14:34 Urine Blood Trace (Negative) H 06/19/21 14:34 Urine Nitrate Negative (Negative) 06/19/21 14:34 Urine Bilirubin Neg (Negative) 06/19/21 14:34 Urine Urobilinogen 4 mg/dL (Negative) H 06/19/21 14:34 Ur Leukocyte Esterase Negative (Negative) 06/19/21 14:34 Urine RBC 0-4 /hpf (0-2) H 06/19/21 14:34 Urine WBC 5-10 /hpf (0-5) H 06/19/21 14:34 Ur Squamous Epith Cells 10-15 /hpf (0-5) H 06/19/21 14:34 Amorphous Sediment Not Reportable 06/19/21 14:34 Urine Bacteria Trace /hpf (NONE) 06/19/21 14:34 Imaging Data Other Imaging: Radiologist's impression: [place] [address] CT Scan Report Signed Patient: Zenaida Madsen Unit #: [id number] : 1960 Age/Sex: 61 / F ADM Date: 06/19/21 Loc: ER Room/Bed: Attending Dr: Ordering Provider/Ordering MD: Elissa Leslie MD Date of Service: 06/19/21 Procedure(s): CT abdomen pelvis w con* [id number] Accession Number(s): [id number] Report Number: [id number] WS: [id number] CT ABDOMEN PELVIS TECHNIQUE: Contrast-enhanced CT of the abdomen and pelvis with coronal and s agittal reformatted images. CLINICAL INFORMATION: abd pain, generalized, nv COMPARISON: CT abdomen pelvis 10 DLP: 1912.[address] scans at [facility] use at least one of these dose optimization techniques: automated exposure control; mA and/or kV adjustment per patient size (includes targeted exams where dose is matched to clinical indication); or iterative reconstruction. FINDINGS: Hepatomegaly diffuse fatty infiltration liver. Prior cholecystectomy. Prior postoperative changes gastric bypass. Diffuse gastric mucosal and duodenal enhancement compatible with gastroduodenitis. Small RIGHT pleural effusion with peripheral pleural enhancement suspicious for empyema has improved compared to April 29, 2021. Stable masslike consolidation in the RIGHT lower lobe. Slight atelectasis LEFT lung base. Thickening with inflammatory stranding involving the RIGHT colon more prominent at the hepatic flexure and proximal transverse colon compatible with colitis. No evidence of high-grade small or large bowel obstruction. Fatty atrophy of the pancreas. Small amount of perihepatic fluid. Small amount of fluid in the pericolic gutters. No drainable ascites. Normal portal vein and splenic vein. Normal caliber abdominal aorta. Celiac and SMA appear patent. Adrenal glands are normal. Normal renal parenchymal enhancement. No hydronephrosis. Bilateral THAs degrade images in the pelvis. Small fat-containing umbilical hernia. CT/CT abdomen pelvis w con* [id number] IMPRESSION: ? 1.? Evidence of gastroenteritis with mucosal enhancement involving the stomach and duodenum. 2.? Prior Gastric bypass. 3.? Mild diffuse thickening with mucosal enhancement and inflammatory stranding involving the RIGHT colon and more prominent involving the RIGHT hepatic flexure proximal transverse colon compatible with infectious or inflammatory colitis. 4.? No evidence of high-grade small or large bowel obstruction. 5.? Small RIGHT pleural effusion with pleural enhancement suspicious for empyema has improved compared to April 29, 2021. Persistent masslike consolidation RIGHT lower lobe is unchanged. 6.? Small amount of perihepatic fluid. Small amount of fluid in the pericolic gutters. No drainable ascites. 7.? No other significant changes compared to previous. ? Dictated By: Quincy Guthrie MD Signed By: Quincy Guthrie MD Signed Date/Time: 06/19/21 1401 DD/ 1344 Discharge Plan Discharge Patient Disposition: Home Clinical Impression: Abdominal pain, Colitis Condition: Stable Prescriptions: New Pepcid 20 mg tablet 20 mg PO BID PRN (Reason: abdominal pain) 10 Days Qty: 20 0RF ondansetron 4 mg tablet,disintegrating 4 mg PO TID PRN (Reason: nausea and vomiting) 4 Days Qty: 12 0RF Maalox Advanced 1,000-60 mg tablet,chewable 1 tab PO TID PRN (Reason: abdominal pain) 7 Days Qty: 21 0RF metronidazole 500 mg tablet 500 mg PO BID 10 Days Qty: 20 0RF No Action (DME) lace up ankle brace See Rx Instructions .Route .MEDSUPPLY Qty: 1 0RF Rx Instructions: As directed (DME) inogen system See Rx Instructions .Route .MEDSUPPLY Qty: 1 0RF Rx Instructions: As directed inogen system 2 liters continuous 24 hour folic acid 1 mg tablet 1 mg PO DAILY 0RF midodrine 5 mg tablet 5 mg PO BID 0RF Rx Instructions: do not give last dose of day after 6PM or within 4 hrs of bedtime budesonide [Pulmicort] 1 mg/2 mL suspension for nebulization 0.5 mg inhalation BID 0RF albuterol sulfate [Ventolin HFA] 90 mcg/actuation HFA aerosol inhaler 1 puff INHALATION Q6H PRN (Reason: SHORTNESS OF BREATH/WHEEZING) Qty: 8.5 2RF albuterol sulfate 2.5 mg /3 mL (0.083 %) solution for nebulization 2.5 mg INHALATION Q4H MDD SEE PHARMACY COMMENT PRN (Reason: Shortness Of Breath) Qty: 75 2RF clopidogrel [Plavix] 75 mg tablet 75 mg PO DAILY@0900 Qty: 30 2RF fluticasone propion-salmeterol [Advair Diskus] 500-50 mcg/dose blister with device 1 ea inhalation BID Qty: 60 2RF gabapentin 300 mg capsule See Rx Instructions .ROUTE .COMPLEX Qty: 150 2RF Rx Instructions: 600 mg orally IN THE MORNING/ 300MG AT NOON/ 600MG IN THE EVENING hydroxyzine HCl 50 mg tablet 50 mg PO BID PRN (Reason: anxiety) Qty: 60 2RF rosuvastatin 40 mg tablet 40 mg PO BEDTIME@2200 Qty: 30 2RF Incruse Ellipta 62.5 mcg/actuation blister with device 1 inh INHALATION DAILY Qty: 30 2RF cyclobenzaprine 10 mg tablet 10 mg PO TID PRN (Reason: Muscle Spasm) Qty: 90 2RF tramadol 50 mg tablet 50 mg PO Q4H Qty: 90 2RF MediHoney (honey) 100 % paste 1 applic topical BID Qty: 103 0RF ondansetron 4 mg tablet,disintegrating 4 mg PO PRN (Reason: nausea and vomiting) 0RF esomeprazole magnesium [Nexium] 20 mg capsule,delayed release(DR/EC) 20 mg PO DAILY Qty: 30 1RF fluoxetine [Prozac] 40 mg capsule 40 mg PO BID Qty: 60 0RF Rx Instructions: administer in the morning and at noon/midday bupropion HCl [Wellbutrin SR] 150 mg tablet sustained-release 12 hr 150 mg PO Q12H Qty: 60 0RF Rx Instructions: Stop Cymbalta (DME) CPAP machine and supplies See Rx Instructions .ROUTE .MEDSUPPLY Qty: 1 0RF Rx Instructions: As directed pantoprazole 40 mg tablet,delayed release (DR/EC) 40 mg PO BID 14 Days Qty: 28 0RF (DME) Wheelchair See Rx Instructions .ROUTE .MEDSUPPLY Qty: 1 0RF Rx Instructions: As directed potassium chloride 8 mEq tablet extended release 8 meq PO DAILY Qty: 90 1RF cholecalciferol (vitamin D3) [Vitamin D3] 125 mcg (5,000 unit) tablet 5,000 unit PO DAILY@0900 0RF Hemorrhoidal Cream 1 applic MA BID PRN (Reason: Pain/DISCOMFORT) 0RF Discharge Orders: Discharge ED (Routine); Ordered 06/19/21 Ordered By: Elissa Leslie Referrals: Jadiel Munoz, [facility] [employer] [facility] S[facility]IOR MANAGER-[facility] [Primary Care Provider] - Discharge Diet: Advance as tolerated Discharge Activity: Increase activity as tolerated Patient Instructions: Abdominal Pain (ED) Activity Restrictions/Additional Instructions: Please take your antibiotics as instructed. Watch out for signs of skin changes/redness, mouth redeness or swelling, nausea/vomiting, diarrhea, blood in the urine or any new or concering complaints. Our case folder will have you follow-up with Pulmonology in the next few days. You would be expected to have a phone call with our case folder who will put you on the schedule. You can expect a call from us in the next 2-3 days. If you don't hear from us, call us back in the emergency room at [phone]. Stand Alone Forms: Work/School Release Coding Level of Care Code ED Unmanned Equipment Operator for Michael Fwd Exam Comprehensive
--- NOTE | 2021-06-19 12:30 | CT_ITS ---
WS: [id number] CT ABDOMEN PELVIS TECHNIQUE: Contrast-enhanced CT of the abdomen and pelvis with coronal and sagittal reformatted image s. CLINICAL INFORMATION: abd pain, generalized, nv COMPARISON: CT abdomen pelvis 10 DLP: 1912.[address] scans at [facility] use at least one of these dose optimization techniques: automated e xposure control; mA and/or kV adjustment per patient size (includes targeted exams where dose is matc hed to clinical indication); or iterative reconstruction. FINDINGS: Hepatomegaly diffuse fatty infiltration liver. Prior cholecystectomy. Prior postoperative changes gas tric bypass. Diffuse gastric mucosal and duodenal enhancement compatible with gastroduodenitis. Small RIGHT pleural effusion with peripheral pleural enhancement suspicious for empyema has improved compared to April 29, 2021. Stable masslike consolidation in the RIGHT lower lobe. Slight atelectasis LEFT lung base. Thickening with inflammatory stranding involving the RIGHT colon more prominent at the hepatic flexur e and proximal transverse colon compatible with colitis. No evidence of high-grade small or large bow el obstruction. Fatty atrophy of the pancreas. Small amount of perihepatic fluid. Small amount of fluid in the beulah lic gutters. No drainable ascites. Normal portal vein and splenic vein. Normal caliber abdominal aorta. Celiac and SMA appear patent. Ad renal glands are normal. Normal renal parenchymal enhancement. No hydronephrosis. Bilateral THAs degr ptaricio images in the pelvis. Small fat-containing umbilical hernia. CT/CT abdomen pelvis w con* [id number] IMPRESSION: 1. Evidence of gastroenteritis with mucosal enhancement involving the stomach and duodenum. 2. Prior Gastric bypass. 3. Mild diffuse thickening with mucosal enhancement and inflammatory stranding involving the RIGHT colon and more prominent involving the RIGHT hepatic flexu re proximal transverse colon compatible with infectious or inflammatory colitis . 4. No evidence of high-grade small or large bowel obstruction. 5. Small RIGHT pleural effusion with pleural enhancement suspicious for empyem a has improved compared to April 29, 2021. Persistent masslike consolidation RI GHT lower lobe is unchanged. 6. Small amount of perihepatic fluid. Small amount of fluid in the pericolic g utters. No drainable ascites. 7. No other significant changes compared to previous.
[2021-06-19 12:38] LABS: Basophils % 0.4 %; Eosinophils # 0.1 10^3/uL (0.0-0.8); Eosinophils % 0.9 %; Hematocrit 47.9 % (37.0-47.0); Hemoglobin 15.7 g/dL (11.5-15.3); Lymphocytes # 1.5 10^3/uL (0.8-4.8); Lymphocytes % 14.8 %; Mean Corpuscular HGB Conc 32.8 g/dL (30.0-36.0); Mean Corpuscular Hemoglobin 31.3 pg (28.0-34.0); Mean Corpuscular Volume 95.6 fl (81-99); Mean Platelet Volume 10.4 fL (7.4-10.4); Monocytes # 1.1 10^3/uL (0.2-0.9); Monocytes % 10.8 %; Neutrophils # 7.45 10^3/uL (1.8-7.7); Neutrophils % 72.9 %; Nucleated Red Blood Cells % 0 %; Platelet Count 140 10^3/cmm (130-400); Red Blood Count 5.01 10^6/uL (4.1-5.3); Red Cell Distribution Width 16.9 % (12.1-15.1); White Blood Count 10.2 10^3/uL (4.0-10.0)
[2021-06-19 13:05] LABS: Alanine Aminotransferase 39 U/L (0-33); Albumin Level 2.1 g/dL (3.5-5.2); Alkaline Phosphatase 396 IU/L (35-105); Anion Gap 13.6 (5-19); Aspartate Amino Transferase 121 U/L (0-32); Blood Urea Nitrogen 4 mg/dL (8-23); Calcium 8.6 mg/dL (8.5-10.5); Carbon Dioxide 28 mmol/L (22-29); Chloride 99 mmol/L (98-107); Glomerular Filtration Rate 72.7 mL/min (90-130); Glucose 85 mg/dL (65-115); Lipase 9 U/L (13-60); Osmolality Calculated 280 mOsm/kg (285-295); Potassium 3.6 mmol/L (3.5-5.1); Sodium 137 mmol/L (136-145); Total Bilirubin 1.3 mg/dL (0.15-1.2); Total Protein 6.1 g/dL (6.6-8.7)
[2021-06-19] MEDS: iohexol 350 mg/mL 100 mL Btl IV (13:37)
[2021-06-19] MEDS: lidocaine 2% viscous 15 ML, aluminum-mag hydrox-simethicon 30 ML, sucralfate oral liq 1 GM PO (14:30)
[2021-06-19] MEDS: sodium chloride 0.9% 1,000 ML 999 ML IV (14:31)
[2021-06-19 14:59] LABS: Add Urine Culture? No; Add Urine Microscopic? YES; Bacteria Urine TRACE /hpf; Bilirubin Urine Neg (Negative); Blood Urine Trace (Negative); Glucose Urine UA Norm (Normal); Ketones Urine 1+ (Negative); Leukocyte Esterase Urine Negative (Negative); Nitrate Urine Negative (Negative); Protein Urine Neg (Negative); RBC Urine 0-4 /hpf (0-2); Specific Gravity, Urine 1.005 (1.005-1.030); Urine Appearance Clear (CLEAR); Urine Color Dark Yellow (Yellow); Urobilinogen Urine 4 mg/dL (Negative); pH Urine 5 (5-7)
[2021-06-19 16:00] VITALS: BP 108/71; PULSE 70; RESP 20; O2SAT 96
--- NOTE | 2021-06-20 10:57 | DCPLANNER ---
Addendum entered by Alea Munoz 07/25/21 17:32: Patient had a follow up appointment scheduled for 07.23.21 with [facility] - appointment was cancelled. Addendum entered by Alea Munoz 06/24/21 10:12: Patient has a follow up appointment scheduled for Friday, July 23, 2021 at 3:[address] Ramos at [facility]. configuration release manager called and gave patient appointment information. Original Note: configuration release manager had message to schedule a follow up appointment for patient with [facility]. configuration release manager sent patients information to the front office staff at [facility]. Patients information will be printed and reviewed. Clinic will notify pillowcase cutter of the appointment information. configuration release manager will call patient with appointment information.
== END 2021-06-19 16:00 | disposition home or self-care (01) ==
PROVIDERS: Emergency Provider Emergency Medicine; PCP Nurse Practitioner
DX: K52.9 Noninfective gastroenteritis and colitis, unspecified (principal); R91.8 Other nonspecific abnormal finding of lung field; F17.210 Nicotine dependence, cigarettes, uncomplicated; I25.10 Atherosclerotic heart disease of native coronary artery without angina pectoris; I10 Essential (primary) hypertension; Z95.5 Presence of coronary angioplasty implant and graft; Z79.02 Long term (current) use of antithrombotics/antiplatelets; Z98.84 Bariatric surgery status
CPT/HCPCS: 74177; 80053; 81001; 83690; 85025; 96360; 99284; J7030; Q9967

== ENCOUNTER 2021-06-23 11:36 | Emergency (ER) | payer MEDICARE, MEDICAID, SELFPAY ==
[2021-06-23 11:47] VITALS: BP 144/85; PULSE 90; RESP 16; TEMP 36.4; O2SAT 98; BMI 45.3
--- NOTE | 2021-06-23 11:56 | ED_ITS ---
HPI - Abdominal Pain General: Chief Complaint: Abdominal Pain Stated Complaint: ABD PAIN Time Seen by Provider: 06/23/21 11:37 Source: patient Mode of arrival: EMS Limitations: no limitations History of Present Illness: 59-year-old female presents emergency room complaining of abdominal pain. She was seen couple days ago she had a colitis was started on antibiotics was also question of an empyema although it seems to be decreasing in size she is started on cefepime and metronidazole but she states she continues to have difficulty with keeping food and fluids down does not feel like she is keeping the antibiotics down adequately. She not had any fever sweats chills no radiation of pain to the neck arm or back. Cough has been nonproductive she denies any medication melena hematemesis coffee-ground emesis. MD elicited complaint: abdominal pain Pertinent past history: other (Colitis) Onset (ago): day(s) Pain Consistency: constant Location: Diffuse Severity: moderate Quality: cramping Radiation: none Migration to: no migration Exacerbating factors: nothing Relieving factors: nothing Associated Symptoms: Denies anorexia, belching, bloating, change in bowel habits, change in stool character, chills, coffee ground emesis, constipation, GI cramping, diarrhea, dyspepsia, dysuria, excessive flatus, fever(s), hematochezia, hematuria, hematemesis, fecal incontinence, loose stools, melena, nausea, poor appetite, syncope and vomiting Review of Systems Const: Denies: fever(s) or chills ENMT: Denies: throat pain, ear or mastoid pain, nasal discharge or nasal congestion Card: Reports: chest pain and edema; Denies: syncope Resp: Denies: dyspnea, productive cough or non-productive cough GI: Denies: abdominal pain, nausea, vomiting, hematemesis, coffee ground emes is, diarrhea, constipation, bloating, GI cramping, belching, excessive flatus, fecal incontinence, change in bowel habits, change in stool character, hematochezia or melena : Denies: flank pain, difficulty voiding, dysuria, urinary frequency, urinary urgency or hematuria Musc: Denies: neck pain or back pain Skin/Breast: Denies: rash or pruritus Psych: Reports: anxiety and hopelessness PFS ED PFSH: Medical History Alcohol abuse Anxiety and depression CAD (coronary artery disease) has 2 stents Chronic obstructive pulmonary disease, unspecified Cigarette smoker COVID-19 (03/05/20) Essential (primary) hypertension Hepatic steatosis with hepatomegaly History of echocardiogram (03/06/20) Estimated EF 70%, normal diastolic function, normal pulmonary artery pressure, no valvular abnormality noted Intervertebral disc disorder with radiculopathy of lumbar region Low serum iron Mixed hyperlipidemia Morbid obesity BMI ~45 kg/m2 SVETLANA (obstructive sleep apnea) Osteoarthritis, chronic Personal history of nicotine dependence Slow transit constipation Vancomycin-induced nephrotoxicity (~06/2019) Vitamin D deficiency Surgical History H/O esophagogastroduodenoscopy (05/04/19) Status post gastric bypass with grade B esophagitis History of 2 sections History of cholecystectomy History of coronary artery stent placement History of gastric bypass History of hysterectomy History of left hip replacement History of right hip replacement S/P foot surgery, right 1) open trimalleolar fracture 05/2019 2) gangrene at operative site 06/2019 Status post colonoscopy with polypectomy (05/04/19) Descending colon polyp Family History Grandmother Hypertension Stroke Mother Hypertension Stroke Family/Other CAD (coronary artery disease) Denies family history of Diabetes Dementia Chronic kidney disease (CKD) Suicide Anesthesia complication Bleeding disorder Lung disease Cancer Social History Smoking and tobacco status: current every day smoker cigarettes Packs smoked per day: 0.5 Second hand smoke exposure: No Smoking risk assessment/counseling performed?: Yes Alcohol intake: current Alcohol intake frequency: 3 or more drinks per day Alcohol type: hard liquor Desire information about alcohol rehabilitation?: No Last alcohol use date: 06/16/19 Desire information about substance/drug rehabilitation?: No Counseling given: No Adopted: No Caregiver/support person: No Lives independently: Yes Household members: significant other Housing: House Marital status: Single Marital status details: Life partner Donny Nolen [phone] Number of children: 3 service: No Current occupational status: unemployed History of recent travel: No Current gender identity: Female Physical Exam Const: COMMON NORMALS: no acute distress GENERAL APPEARANCE: cooperative and comfortable ORIENTATION/CONSCIOUSNESS: Yes awake, Yes oriented to person, Yes oriented to place and Yes oriented to time HENMT: COMMON NORMALS: normocephalic, atraumatic and hearing grossly normal bilaterally HEAD & SCALP: normocephalic and atraumatic Resp: COMMON NORMALS: normal respiratory effort, No retractions, No use of accessory muscles and clear to auscultation bilaterally AUSCULTATION: clear to auscultation bilaterally Cardio: COMMON NORMALS: regular rate, regular rhythm and No murmurs present (Cardio) RATE: regular rate RHYTHM: regular rhythm GI: COMMON NORMALS: Soft to palpation and No hepatosplenomegaly present AUSCULTATION: Yes normoactive bowel sounds PALPATION: Yes Soft to palpation, Yes Tenderness to palpation present (GI) (Mild diffuse tenderness), No Guarding due to palpation present (GI) and Yes No hepatosplenomegaly present : COMMON NORMALS: Yes no CVA tenderness BLADDER/KIDNEY EXAM: Yes no CVA tenderness Back/Pelvis: COMMON NORMALS: no CVA tenderness Extremity: COMMON NORMALS: normal to inspection, capillary refill normal, no clubbing, cyanosis or edema, no calf tenderness and no pedal edema Neuro: SENSORIUM/ORIENTATION: Yes oriented to person, Yes oriented to place and Yes oriented to time Skin: COMMON NORMALS: no rashes or lesions noted GENERAL SKIN EXAM: no rashes or lesions noted Course Vital Signs: Vital signs: Vital Signs Temperature 97.5 F L 06/23/21 11:47 Pulse Rate 89 06/23/21 15:52 Respiratory Rate 16 06/23/21 15:52 Blood Pressure 124/69 06/23/21 15:52 Pulse Oximetry 96 06/23/21 15:52 MDM - Abdominal Pain Medical Decision Making Her colitis is actually improving so is the empyema at this point will discharge home she is feeling a little better use promethazine as needed follow-up with primary care clear liquid diet for 24 to 40 hours and advance as tolerated Medical Records I reviewed the patient's medical records. Lab Data I reviewed the patient's lab results. : 06/23/21 13:18 06/23/21 13:18 Labs/Radiology: Radiology Impressions Abdomen/Pelvis CT 06/23/21 11:58 IMPRESSION: 1. Small RIGHT pleural effusion with mild pleural enhancement. Small empyema not excluded on this appearance. There is adjacent rounded atelectasis at the RIGHT lung base. 2. Severe hepatic steatosis. 3. Small amount of ascites. 4. Improved wall thickening and enhancement of the RIGHT colon compared to 06/19/2021. Mild persistent submucosal edema. 5. Mild mesenteric and omental stranding. This can be seen with edema from inflammation or peritonitis. Chest X-Ray 06/23/21 11:58 Impression: 1. No change in right basilar pleural opacity. 2. No acute cardiovascular disease is seen. Laboratory Results WBC 8.6 10^3/uL (4.0-10.0) 06/23/21 13:18 RBC 4.74 10^6/uL (4.1-5.3) 06/23/21 13:18 Hgb 14.7 g/dL (11.5-15.3) 06/23/21 13:18 Hct 43.7 % (37.0-47.0) 06/23/21 13:18 MCV 92.2 fl (81-99) 06/23/21 13:18 MCH 31.0 pg (28.0-34.0) 06/23/21 13:18 MCHC 33.6 g/dL (30.0-36.0) 06/23/21 13:18 RDW 16.5 % (12.1-15.1) H 06/23/21 13:18 Plt Count 116 10^3/cmm (130-400) L 06/23/21 13:18 MPV 11.0 fL (7.4-10.4) H 06/23/21 13:18 Neut % (Auto) 63.7 % 06/23/21 13:18 Lymph % (Auto) 21.4 % 06/23/21 13:18 [place] % (Auto) 13.1 % 06/23/21 13:18 Eos % (Auto) 0.9 % 06/23/21 13:18 Baso % (Auto) 0.7 % 06/23/21 13:18 Neut # (Auto) 5.46 10^3/uL (1.8-7.7) 06/23/21 13:18 Lymph # (Auto) 1.8 10^3/uL (0.8-4.8) 06/23/21 13:18 [place] # (Auto) 1.1 10^3/uL (0.2-0.9) H 06/23/21 13:18 Eos # (Auto) 0.1 10^3/uL (0.0-0.8) 06/23/21 13:18 Baso # (Auto) 0.1 10^3/uL (0.0-0.1) 06/23/21 13:18 Nucleated RBC % (auto) 0 % 06/23/21 13:18 Nucleated RBCs # 0.0 /100WBC 06/23/21 13:18 Sodium 135 mmol/L (136-145) L 06/23/21 13:18 Potassium 3.6 mmol/L (3.5-5.1) 06/23/21 13:18 Chloride 99 mmol/L (98-107) 06/23/21 13:18 Carbon Dioxide 29 mmol/L (22-29) 06/23/21 13:18 Anion Gap 10.6 (5-19) 06/23/21 13:18 BUN 7 mg/dL (8-23) L 06/23/21 13:18 Creatinine 0.9 mg/dL (0.5-0.9) 06/23/21 13:18 GFR Calculation 63.4 mL/min (90-130) L 06/23/21 13:18 Glucose 69 mg/dL (65-115) 06/23/21 13:18 Calculated Osmolality 276 mOsm/kg (285-295) L 06/23/21 13:18 Lactic Acid 1.4 mmol/L (0.5-2.2) 06/23/21 13:28 Calcium 7.7 mg/dL (8.5-10.5) L 06/23/21 13:18 Total Bilirubin 1.4 mg/dL (0.15-1.2) H 06/23/21 13:18 AST 79 U/L (0-32) H 06/23/21 13:18 ALT 35 U/L (0-33) H 06/23/21 13:18 Alkaline Phosphatase 358 IU/L (35-105) H 06/23/21 13:18 Total Protein 5.7 g/dL (6.6-8.7) L 06/23/21 13:18 Albumin 1.9 g/dL (3.5-5.2) L 06/23/21 13:18 Globulin 3.8 g/dL (1.3-4.6) 06/23/21 13:18 Urine Color [place] (Yellow) 06/23/21 14:33 Urine Appearance Sl hazy (CLEAR) 06/23/21 14:33 Urine pH 5 (5-7) 06/23/21 14:33 Ur Specific [place] 1.015 (1.005-1.030) 06/23/21 14:33 Urine Protein Trace (Negative) 06/23/21 14:33 Urine Glucose (UA) Norm (Normal) 06/23/21 14:33 Urine Ketones 1+ (Negative) H 06/23/21 14:33 Urine Blood Neg (Negative) 06/23/21 14:33 Urine Nitrate Negative (Negative) 06/23/21 14:33 Urine Bilirubin 1+ (Negative) H 06/23/21 14:33 Urine Urobilinogen 8 mg/dL (Negative) H 06/23/21 14:33 Ur Leukocyte Esterase Trace (Negative) H 06/23/21 14:33 Urine RBC 0-4 /hpf (0-2) H 06/23/21 14:33 Urine WBC 0-4 /hpf (0-5) H 06/23/21 14:33 Ur Squamous Epith Cells 15-25 /hpf (0-5) H 06/23/21 14:33 Amorphous Sediment 1+ /hpf 06/23/21 14:33 Urine Bacteria 1+ /hpf (NONE) H 06/23/21 14:33 Urine Mucus 1+ /hpf 06/23/21 14:33 Discharge Plan Discharge Patient Disposition: Home Clinical Impression: Colitis, Empyema lung Condition: Stable Prescriptions: New promethazine 25 mg tablet 25 mg PO Q6H PRN (Reason: nausea and vomiting) Qty: 20 0RF No Action (DME) lace up ankle brace See Rx Instructions .Route .MEDSUPPLY Qty: 1 0RF Rx Instructions: As directed (DME) inogen system See Rx Instructions .Route .MEDSUPPLY Qty: 1 0RF Rx Instructions: As directed inogen system 2 liters continuous 24 hour folic acid 1 mg tablet 1 mg PO DAILY 0RF midodrine 5 mg tablet 5 mg PO BID 0RF Rx Instructions: do not give last dose of day after 6PM or within 4 hrs of bedtime budesonide [Pulmicort] 1 mg/2 mL suspension for nebulization 0.5 mg inhalation BID 0RF albuterol sulfate [Ventolin HFA] 90 mcg/actuation HFA aerosol inhaler 1 puff INHALATION Q6H PRN (Reason: SHORTNESS OF BREATH/WHEEZING) Qty: 8.5 2RF albuterol sulfate 2.5 mg /3 mL (0.083 %) solution for nebulization 2.5 mg INHALATION Q4H MDD SEE PHARMACY COMMENT PRN (Reason: Shortness Of Breath) Qty: 75 2RF clopidogrel [Plavix] 75 mg tablet 75 mg PO DAILY@0900 Qty: 30 2RF fluticasone propion-salmeterol [Advair Diskus] 500-50 mcg/dose blister with device 1 ea inhalation BID Qty: 60 2RF gabapentin 300 mg capsule See Rx Instructions .ROUTE .COMPLEX Qty: 150 2RF Rx Instructions: 600 mg orally IN THE MORNING/ 300MG AT NOON/ 600MG IN THE EVENING hydroxyzine HCl 50 mg tablet 50 mg PO BID PRN (Reason: anxiety) Qty: 60 2RF rosuvastatin 40 mg tablet 40 mg PO BEDTIME@2200 Qty: 30 2RF Incruse Ellipta 62.5 mcg/actuation blister with device 1 inh INHALATION DAILY Qty: 30 2RF cyclobenzaprine 10 mg tablet 10 mg PO TID PRN (Reason: Muscle Spasm) Qty: 90 2RF tramadol 50 mg tablet 50 mg PO Q4H Qty: 90 2RF MediHoney (honey) 100 % paste 1 applic topical BID Qty: 103 0RF ondansetron 4 mg tablet,disintegrating 4 mg PO TID PRN (Reason: nausea and vomiting) 0RF esomeprazole magnesium [Nexium] 20 mg capsule,delayed release(DR/EC) 20 mg PO DAILY Qty: 30 1RF fluoxetine [Prozac] 40 mg capsule 40 mg PO BID Qty: 60 0RF Rx Instructions: administer in the morning and at noon/midday bupropion HCl [Wellbutrin SR] 150 mg tablet sustained-release 12 hr 150 mg PO Q12H Qty: 60 0RF Rx Instructions: Stop Cymbalta (DME) CPAP machine and supplies See Rx Instructions .ROUTE .MEDSUPPLY Qty: 1 0RF Rx Instructions: As directed pantoprazole 40 mg tablet,delayed release (DR/EC) 40 mg PO BID 14 Days Qty: 28 0RF (DME) Wheelchair See Rx Instructions .ROUTE .MEDSUPPLY Qty: 1 0RF Rx Instructions: As directed potassium chloride 8 mEq tablet extended release 8 meq PO DAILY Qty: 90 1RF cholecalciferol (vitamin D3) [Vitamin D3] 125 mcg (5,000 unit) tablet 5,000 unit PO DAILY@0900 0RF famotidine [Pepcid] 20 mg tablet 20 mg PO BID PRN (Reason: abdominal pain) 10 Days Qty: 20 0RF Maalox Advanced 1,000-60 mg tablet,chewable 1 tab PO TID PRN (Reason: abdominal pain) 7 Days Qty: 21 0RF metronidazole 500 mg tablet 500 mg PO BID 10 Days Qty: 20 0RF carvedilol 25 mg tablet 12.5 mg PO BID 0RF sucralfate 1 gram Tablet 1 g PO QID 0RF furosemide 20 mg tablet 20 mg PO DAILY 0RF Discharge Orders: Discharge ED (Routine); Ordered 06/23/21 Ordered By: Cristo Jenkins Referrals: Jadiel Munoz, INTENSIVE CARE SPECIALIST-C [Primary Care Provider] - Discharge Diet: Advance as tolerated and Usual diet Patient Instructions: Opioid Safety Activity Restrictions/Additional Instructions: Continue previously prescribed antibiotics use the antiemetic given today as needed COVID expect for 24 to 48 hours then advance as tolerated Coding Level of Care Code ED Aids Counselor for Michael Fwd Exam Comprehensive
--- NOTE | 2021-06-23 11:58 | CT_ITS ---
WS: [id number] CT ABDOMEN AND PELVIS WITH CONTRAST HISTORY: Central abdominal pain with nausea and vomiting. Prior history of cholecystectomy, hysterect [place], appendectomy and gastric bypass. TECHNIQUE: Imaging performed of the abdomen and pelvis with IV contrast. Single phase imaging of the abdomen. Coronal and sagittal reformats are submitted. All CT scans at [facility] use at [address] one of these dose optimization techniques: automated exposure control; mA and/or kV adjustment per patient size (includes targeted exams where dose is matched to clinical indication); or iterative re construction. IV CONTRAST: Omnipaque 300; 95 mL IV. Oral contrast: No DLP: 1592.06 mGy.cm COMPARISON: 06/19/2021. 11/05/2020 Lower thorax: Small effusion at the RIGHT lung base, mildly improved in size since the prior study. There is mild enhancement of the adjacent pleura. There is also masslike area of consolidation with e nhancement at the RIGHT lung base most consistent with rounded atelectasis. This has been present sin ce 11/05/2020 without increase in size. Heart size is normal. Small hiatal hernia. Postoperative change s of gastric bypass are present. Liver/biliary system: Marked low attenuation throughout the liver. Consistent with hepatic steatosis. There is a small amount of ascites adjacent to the liver which may have slightly increased since the prior examination. Normal portal vein. Gallbladder: Status post cholecystectomy. Pancreas: Atrophied. Otherwise negative. Spleen: Calcification along the posterior lateral spleen. Adrenal glands: Normal. Right kidney: Mild perinephric stranding. No obstruction. Left kidney: Mild perinephric stranding. No obstruction. Aorta: Mild atherosclerosis with no aneurysm. Moderate calcification at the origin of the SMA. Celiac axis is patent. Lymphadenopathy: None. Free fluid: There is a small amount of ascites throughout the abdomen. Most significant around the li kathie and extending along the paracolic gutters into the pelvis. There is mild inflammation and strandi ng within the omentum and mesentery in the upper abdomen. Recently described hyperemia and enhancemen t within the duodenum and stomach has improved. GI tract: No GI tract obstruction. Prior gastric bypass. Very mild submucosal edema in the RIGHT colo n. Prior appendectomy. Abdominal wall: Unremarkable abdominal wall. No hernia. Extensive soft tissue anasarca. Pelvis: Free fluid in the pelvis. Prior hysterectomy. Bones: Prior bilateral hip arthroplasties. CT/CT abdomen pelvis w con* [id number] IMPRESSION: 1. Small RIGHT pleural effusion with mild pleural enhancement. Small empyema n ot excluded on this appearance. There is adjacent rounded atelectasis at the RI T lung base. 2. Severe hepatic steatosis. 3. Small amount of ascites. 4. Improved wall thickening and enhancement of the RIGHT colon compared to 05/31. Mild persistent submucosal edema. 5. Mild mesenteric and omental stranding. This can be seen with edema from inf lammation or peritonitis.
--- NOTE | 2021-06-23 11:58 | ECG_ITS ---
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 Measurements Intervals [place] Rate: 85 P: 143 DE: 150 QRS: 39 QRSD: 92 T: 188 QT: 380 QTc: 454 Interpretive Statements SINUS RHYTHM NONSPECIFIC T-WAVE ABNORMALITY Compared to ECG 04/29/2021 13:59:13 T-wave abnormality now present Supraventricular rhythm no longer present Electronically Signed On 06-23-2021 22:01:49 CDT by Jr Miramontes M.D. [id number]
--- NOTE | 2021-06-23 11:58 | XR_ITS ---
WS: [id number] Portable AP upright chest, 06/23/2021 Clinical Data: dyspnea/cough Comparison: Portable chest, 04/29/2021. Findings: The right basilar pleural opacity which may represent a combination of loculated effusion, atelectasis and consolidation remains the same. The left lung shows minimal pleural pericardial scarr ing at the costophrenic angle. The heart is normal. No acute pneumonia or pneumothorax is seen. The pulmonary vascularity is normal. XR/XR chest 1V portable [id number] Impression: 1. No change in right basilar pleural opacity. 2. No acute cardiovascular disease is seen.
[2021-06-23] MEDS: iohexol 300 mg/mL 100 mL Btl IV (12:59)
[2021-06-23 13:41] LABS: Basophils # 0.1 10^3/uL (0.0-0.1); Basophils % 0.7 %; Eosinophils # 0.1 10^3/uL (0.0-0.8); Eosinophils % 0.9 %; Hematocrit 43.7 % (37.0-47.0); Hemoglobin 14.7 g/dL (11.5-15.3); Lymphocytes # 1.8 10^3/uL (0.8-4.8); Lymphocytes % 21.4 %; Mean Corpuscular HGB Conc 33.6 g/dL (30.0-36.0); Mean Corpuscular Volume 92.2 fl (81-99); Monocytes # 1.1 10^3/uL (0.2-0.9); Monocytes % 13.1 %; Neutrophils # 5.46 10^3/uL (1.8-7.7); Neutrophils % 63.7 %; Nucleated Red Blood Cells % 0 %; Platelet Count 116 10^3/cmm (130-400); Red Blood Count 4.74 10^6/uL (4.1-5.3); Red Cell Distribution Width 16.5 % (12.1-15.1); White Blood Count 8.6 10^3/uL (4.0-10.0)
[2021-06-23 14:01] LABS: Lactic Sepsis W/Reflex 1.4 mmol/L (0.5-2.2)
[2021-06-23 14:04] LABS: Alanine Aminotransferase 35 U/L (0-33); Albumin Level 1.9 g/dL (3.5-5.2); Alkaline Phosphatase 358 IU/L (35-105); Blood Urea Nitrogen 7 mg/dL (8-23); Calcium 7.7 mg/dL (8.5-10.5); Carbon Dioxide 29 mmol/L (22-29); Chloride 99 mmol/L (98-107); Globulin 3.8 g/dL (1.3-4.6); Glomerular Filtration Rate 63.4 mL/min (90-130); Glucose 69 mg/dL (65-115); Osmolality Calculated 276 mOsm/kg (285-295); Sodium 135 mmol/L (136-145); Total Bilirubin 1.4 mg/dL (0.15-1.2); Total Protein 5.7 g/dL (6.6-8.7)
[2021-06-23 14:05] LABS: Anion Gap 10.6 (5-19); Aspartate Amino Transferase 79 U/L (0-32); Potassium 3.6 mmol/L (3.5-5.1)
[2021-06-23] MEDS: morphine 4 mg/mL SDV 1 mL IVP (14:29)
[2021-06-23] MEDS: ondansetron 2 mg/ML SDV 2 mL 4 MG IVP (14:29)
[2021-06-23] MEDS: sodium chloride 0.9% 1,000 ML 999 ML IV (14:29)
[2021-06-23 14:35] VITALS: BP 132/88; PULSE 88; RESP 16; O2SAT 100
[2021-06-23 14:53] LABS: Add Urine Culture? No; Add Urine Microscopic? YES; Amorphous Sediment Urine 1+ /hpf; Bacteria Urine 1+ /hpf; Bilirubin Urine 1+ (Negative); Blood Urine Neg (Negative); Glucose Urine UA Norm (Normal); Ketones Urine 1+ (Negative); Leukocyte Esterase Urine Trace (Negative); Mucus Urine 1+ /hpf; Nitrate Urine Negative (Negative); Protein Urine Trace (Negative); RBC Urine 0-4 /hpf (0-2); Specific Gravity, Urine 1.015 (1.005-1.030); Squamous Epithelial Cell Urine 15-25 /hpf (0-5); Urine Appearance SL Hazy (CLEAR); Urine Color Amber (Yellow); Urobilinogen Urine 8 mg/dL (Negative); WBC Urine 0-4 /hpf (0-5); pH Urine 5 (5-7)
[2021-06-23 15:52] VITALS: BP 124/69; PULSE 89; RESP 16; O2SAT 96
== END 2021-06-23 15:54 | disposition home or self-care (01) ==
PROVIDERS: Emergency Provider Family Medicine; PCP Nurse Practitioner
DX: K52.9 Noninfective gastroenteritis and colitis, unspecified (principal); J86.9 Pyothorax without fistula; F17.210 Nicotine dependence, cigarettes, uncomplicated; Z79.51 Long term (current) use of inhaled steroids; Z99.89 Dependence on other enabling machines and devices
CPT/HCPCS: 36415; 71045; 74177; 80053; 81001; 83605; 85025; 87040; 93005; 96361; 96374; 96375; 99283; J2270; J2405; J7030; Q9967

== ENCOUNTER → 2021-06-30 15:14 | Outpatient (BNVA) | payer MEDICARE, MEDICAID, SELFPAY | PROVIDERS: PCP Nurse Practitioner; Visit Provider Nurse Practitioner | DX: R41.3 Other amnesia (principal) | CPT/HCPCS: 80053; 85025 ==

== ENCOUNTER 2021-07-07 07:54 | Inpatient (IN) | payer MEDICARE, MEDICAID, SELFPAY ==
[2021-07-07] VITALS (22 sets, daily range): BP systolic 102–141; BP diastolic 61–99; PULSE 18–91; RESP 5–26; TEMP 36.4–36.7; O2SAT 79–99; BMI 44.6
--- NOTE | 2021-07-07 08:05 | XR_ITS ---
WS: [id number] PORTABLE CHEST HISTORY: dyspnea/cough COMPARISON: 06/23/2021 Lung volumes are decreased. Continued consolidation with obscuration of the RIGHT hemidiaphragm. Patient has a known previously d escribed small RIGHT pleural effusion and rounded atelectasis at the RIGHT lung base. This consolidat ion was noted on a prior CT from 11/05/2020. Small effusion on the RIGHT. No pneumothorax. Cardiac size: Mildly enlarged cardiac silhouette. Mediastinum/Aorta: Mild atherosclerosis aorta. Osteopenia. XR/XR chest 1V portable [id number] IMPRESSION: 1. Quality of this examination is limited by patient's body habitus. 2. Again noted is consolidation at the RIGHT lung base with obscuration of the hemidiaphragm. Small effusion and atelectasis have been noted on prior studies . No change.
--- NOTE | 2021-07-07 08:05 | CT_ITS ---
WS: [id number] CT HEAD NONCONTRAST HISTORY: AMS TECHNIQUE: Contiguous axial imaging performed through the brain in 2.5 mm imaging. Bone and soft tiss ue windows. Sagittal and coronal reformats reviewed. All CT scans at [facility] use at least one of these dose optimization techniques: automated exposure control; mA and/or kV adjustment per pa tient size (includes targeted exams where dose is matched to clinical indication); or iterative recon struction. DLP: 1422.02 mGy.cm COMPARISON: 03/17/2020 Quality of this examination is limited by motion artifact despite several attempts at achieving quali ty imaging. No significant atrophy or white matter disease. No infarct is evident or loss of the pratt-white matte r differentiation. No prior infarct. No mass effect. Ventricles: Normal size with no hydrocephalus. Paranasal sinuses: As visualized are clear. Mastoid air cells: Well pneumatized. Calvarium and scalp: No fracture. Mild hyperostosis frontalis interna. CT/CT head wo con* [id number] IMPRESSION: 1. No acute intracranial hemorrhage or edema. 2. Stable noncontrast head CT.
--- NOTE | 2021-07-07 08:06 | ECG_ITS ---
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 Measurements Intervals [place] Rate: 85 P: AR: QRS: 69 QRSD: 92 T: 214 QT: 328 QTc: 390 Interpretive Statements ATRIAL FIBRILLATION NONSPECIFIC ST & T-WAVE ABNORMALITY Compared to ECG 06/23/2021 14:39:39 Sinus rhythm no longer present T-wave abnormality still present Electronically Signed On 07-07-2021 21:36:04 CDT by Aimee Pelaez M.D. [email or web address].[place]/store/[id number]
--- NOTE | 2021-07-07 08:20 | XR_ITS ---
WS: [email or web address] XR foot RT min 3V* [id number] REASON FOR EXAM: pain FINDINGS: No acute fracture or focal bone abnormality. Large soft tissue mass overlying the dorsum of the metatarsals. No calcifications. Similar density to remaining soft tissues of the foot. Mild to moderate narrowing of the joint spaces with subchondral sclerosis and small marginal osteophy diane in the PIP and DIP joints of the toes. Moderate dorsal subluxations of the metatarsal-phalangeal joints of the second through the fifth toes without weightbearing. Mild to moderate narrowing of the metatarsal phalangeal joint of the great toe with subchondral scler osis and cystic change and marginal osteophytes. XR/XR foot RT min 3V* [id number] IMPRESSION: Large soft tissue mass on the dorsum of the foot of unknown etiology. Osteoarthritis. No acute abnormality identified.
--- NOTE | 2021-07-07 08:20 | XR_ITS ---
WS: [email or web address] XR ankle RT min 3V* [id number] REASON FOR EXAM: pain swelling FINDINGS: No acute fracture or focal bone lesion. Soft tissue swelling around the ankle. Degenerative changes in the distal most tibia and fibula compatible with previous medial collateral a nd lateral collateral ligament injuries. Narrowing of the fibulotalar joint space and the tibiotalar joint space. XR/XR ankle RT min 3V* [id number] IMPRESSION: Posttraumatic (remote) osteoarthritis. No acute abnormality identified.
[2021-07-07 08:36] LABS: Basophils # 0.1 10^3/uL (0.0-0.1); Basophils % 0.5 %; Eosinophils # 0.1 10^3/uL (0.0-0.8); Eosinophils % 0.3 %; Hematocrit 45.1 % (37.0-47.0); Lymphocytes # 1.9 10^3/uL (0.8-4.8); Lymphocytes % 12.9 %; Mean Corpuscular HGB Conc 35.5 g/dL (30.0-36.0); Mean Corpuscular Volume 90.2 fl (81-99); Mean Platelet Volume 10.3 fL (7.4-10.4); Monocytes # 1.4 10^3/uL (0.2-0.9); Monocytes % 9.4 %; Neutrophils # 11.53 10^3/uL (1.8-7.7); Neutrophils % 76.4 %; Nucleated Red Blood Cells % 0.1 %; Platelet Count 215 10^3/cmm (130-400); White Blood Count 15.1 10^3/uL (4.0-10.0)
[2021-07-07 08:47] LABS: ABG PCO2 34.2 mmHg (35-45); ABG PH Result 7.56 (7.35-7.45); Arterial Blood Gas Hematocrit 49.2 % (37-47); Base Excess ABG 8.6 mmol/L (-2.0-2.0); Blood Gas Allen Test Pos; Blood Gas Sample Type Arterial; HCO3 ABG 30.9 mmol/L (22-26); HGB O2 Sat 96.5 % (95-100); Ionized Calcium Level - ABG 1.1 mmol/L (1.1-1.4); Methemoglobin 0.7 % (0.4-1.5); Oxygen Saturation ABG 99.1; Potassium Level - ABG 2.7 mmol/L (3.5-5.0); Total Hemoglobin 16.1 g/dL (12-16)
[2021-07-07 08:48] LABS: Alveolar-Arterial Oxygen Gradi 13.4 mmHg (5-10); Blood Gas Operator Identificat ED; Blood Gas Sample Site Radial, right; Oxygen Device NC
[2021-07-07 08:58] LABS: Alanine Aminotransferase 21 U/L (0-33); Albumin Level 2.2 g/dL (3.5-5.2); Alkaline Phosphatase 274 IU/L (35-105); Anion Gap 14.6 (5-19); Aspartate Amino Transferase 56 U/L (0-32); Blood Urea Nitrogen 14 mg/dL (8-23); Calcium 9.1 mg/dL (8.5-10.5); Carbon Dioxide 31 mmol/L (22-29); Chloride 94 mmol/L (98-107); Creatine Phosphokinase 24 U/L (26-192); Globulin 4.4 g/dL (1.3-4.6); Glomerular Filtration Rate 38.1 mL/min (90-130); Glucose 91 mg/dL (65-115); Magnesium 2.2 mg/dL (1.7-2.3); Osmolality Calculated 284 mOsm/kg (285-295); Sodium 137 mmol/L (136-145); Total Bilirubin 4.6 mg/dL (0.15-1.2); Total Protein 6.6 g/dL (6.6-8.7)
[2021-07-07 08:59] LABS: Lactic Sepsis W/Reflex 2.3 mmol/L (0.5-2.2)
[2021-07-07 09:00] LABS: Troponin(5th) Baseline 18 ng/L (0-10)
[2021-07-07 09:04] LABS: Acetaminophen < 5.0 ug/mL (10-30); Alcohol Level < 10 mg/dL (0-10); Potassium 2.6 mmol/L (3.5-5.1); Salicylate < 0.3 mg/dL (3-10)
--- NOTE | 2021-07-07 09:05 | PC.NURSE ---
Reported K+ 2.[address] Jenkins
[2021-07-07 09:22] LABS: Specific Gravity, Urine 1.015 (1.005-1.030); Urine Appearance Clear (CLEAR); Urine Color Amber (Yellow); pH Urine 6 (5-7)
[2021-07-07 09:23] LABS: Add Urine Culture? No; Add Urine Microscopic? YES; Bacteria Urine 1+ /hpf; Bilirubin Urine 1+ (Negative); Blood Urine Neg (Negative); Glucose Urine UA Norm (Normal); Ketones Urine Negative (Negative); Leukocyte Esterase Urine Trace (Negative); Nitrate Urine Negative (Negative); Protein Urine Neg (Negative); Urobilinogen Urine 8 mg/dL (Negative); WBC Urine RARE /hpf (0-5)
--- NOTE | 2021-07-07 09:35 | US_ITS ---
WS: [id number] RIGHT UPPER QUADRANT ULTRASOUND HISTORY: Elevated t bili COMPARISON: 06/03/2018 Very limited and nondiagnostic evaluation of the RIGHT upper quadrant due to body habitus and bowel g as. None of the organs can be identified. There is shadowing everywhere. US/US gall bladder [id number] IMPRESSION: Nondiagnostic evaluation secondary to body habitus.
--- NOTE | 2021-07-07 10:06 | ECG_ITS ---
[facility] Test Date: 2021-07-07 Pat Name: Zenaida Madsen Department: Room: Gender: Female Clinical Data Research: : 1960 Requested By: Cristo Bales Order Number: [id number] Korey MD: Aimee Pelaez M.D. Measurements Intervals [place] Rate: 89 P: 93 MN: 155 QRS: 71 QRSD: 93 T: 264 QT: 378 QTc: 462 Interpretive Statements SINUS RHYTHM WITH OCCASIONAL SUPRAVENTRICULAR PREMATURE COMPLEXES NONSPECIFIC T-WAVE ABNORMALITY Compared to ECG 07/07/2021 09:09:33 Atrial fibrillation no longer present T-wave abnormality still present Heavy baseline artifact, need to repeat Electronically Signed On 07-07-2021 21:40:44 CDT by Aimee Pelaez M.D. [email or web address] centerBioDel[facility].[employer]/store/[id number]
[2021-07-07] MEDS: potassium chloride premix 100 ML 25 MEQ IV ×2 (10:18→13:49)
[2021-07-07 10:20] LABS: Reflex Lactate Order REFLEX LACTIC ORDERD
[2021-07-07 11:10] LABS: Troponin 5 2HR 22.34 ng/L (0-10)
[2021-07-07 11:12] LABS: Troponin 5 2HR Delta 4.34 ABS# (0-10)
[2021-07-07 11:34] LABS: Lactic Acid level (Lactate) 2.7 mmol/L (0.5-2.2)
--- NOTE | 2021-07-07 12:09 | PC.PHAR ---
Addendum entered by Elda De La Rosa 07/07/21 12:25: correction plavix WAS on pts med list from [facility] Original Note: pt unable to verify medications-pts states the pt has home health-pt uses [facility] home health-plavix wasnt on med list from [facility] ext med history shows last filled 04/13/21 30d/s no refills- gavin flores from [facility] talked to pts nurse michael that sets the meds up states the pt had 2 full bottles of gabapentin states she sets up 300mg tid- ext med history shows last filled 03/22/21 30d/s for 600mg qam, 300mg at noon and 600mg qpm-notes are made in the pharmacy comments-
--- NOTE | 2021-07-07 12:23 | PM.HP ---
Providers/Chief Complaint Admitting Physician: Matias Sheikh MD, hospitalist Primary Care Provider: Jadiel Munoz, ISABELLE Chief Complaint: AMS History of Present Illness Zenaida Madsen is a 61 year old female presenting to the emergency department with confusion. Family reports she has had worsening mentation, confusion over the last week. Prior to this she had seen her primary care provider for similar memory problems as well. He does not believe she has had any fever. She has not had any diarrhea. He has not noticed any blood in her stool or black or tarry stools. He relates she frequently has pain, sometimes all over and sometimes in her epigastric area. This has been going on about 2 years. She drinks very heavily, but with her confusion has not been able to drink as much in the last several weeks and he does not believe she has had anything to drink in the last week. Last hospitalization was about 3 weeks ago at [facility], where it sounds like a VATS procedure was performed. She was prescribed antibiotics then but is not on any now. Records will need to be requested for details of this. She has had some dry heaving as of late. noticed some edema in her lower extremities worsening over the last several weeks, and a blister on her right foot today. In the emergency department she received some Zosyn, IV potassium, and hepatitis panel She has been evaluated by her primary care provider on June 30 secondary to some short-term memory concerns as well as significant alcohol intake. Medications/Allergies Home Medications Medication Instructions Recorded Confirmed Last Taken Type lace up ankle brace #1 ea 09/28/19 07/07/21 Unknown Rx Wheelchair #1 each 11/16/19 07/07/21 Unknown Rx inogen system #1 ea 07/03/20 07/07/21 Unknown Rx albuterol sulfate 2.5 mg (3 mL) INHALATION Q4H PRN 01/21/21 07/07/21 Unknown Rx #75 ml albuterol sulfate 90 mcg/actuation 1 puff INHALATION Q6H PRN #8.5 g 01/21/21 07/07/21 Unknown Rx aerosol inhaler (Ventolin HFA) hydroxyzine HCl 50 mg tablet 50 mg PO BID PRN #60 tab 01/21/21 07/07/21 Unknown Rx rosuvastatin 40 mg tablet 40 mg PO BEDTIME@2200 #30 tab 01/21/21 07/07/21 Unknown Rx umeclidinium 62.5 mcg/actuation 1 inh INHALATION DAILY #30 ea 01/21/21 07/07/21 Unknown Rx blister powder for inhalation (Incruse Ellipta) cyclobenzaprine 10 mg tablet 10 mg PO TID PRN #90 tab 05/06/21 07/07/21 Unknown Rx honey 100 % topical paste 1 applic TOPICAL BID #103 ml 05/06/21 07/07/21 Unknown Rx (MediHoney (honey)) folic acid 1 mg tablet 1 mg PO DAILY 05/12/21 07/07/21 Unknown History CPAP machine and supplies #1 ea 06/05/21 07/07/21 Unknown Rx bupropion HCl 150 mg tablet,12 hr 150 mg PO Q12H #60 tab 06/05/21 07/07/21 Unknown Rx sustained-release (Wellbutrin SR) esomeprazole magnesium 20 mg 20 mg PO DAILY #30 cap 06/05/21 07/07/21 Unknown Rx capsule,delayed release (Nexium) fluoxetine 40 mg capsule (Prozac) 40 mg PO BID #60 cap 06/05/21 07/07/21 Unknown Rx ondansetron 4 mg disintegrating 4 mg PO TID PRN tab 06/05/21 07/07/21 Unknown History tablet carvedilol 25 mg tablet 12.5 mg PO BID 06/23/21 07/07/21 Unknown History furosemide 20 mg tablet 20 mg PO DAILY 06/23/21 07/07/21 Unknown History promethazine 25 mg tablet 25 mg PO Q6H PRN #20 tab 06/23/21 07/07/21 Unknown Rx sucralfate 1 gram tablet 1 g PO QID 06/23/21 07/07/21 Unknown History potassium chloride 20 mEq 20 meq PO DAILY #30 tab 07/01/21 07/07/21 Unknown Rx tablet,extended release clopidogrel 75 mg tablet 75 mg PO DAILY 07/07/21 07/07/21 Unknown History gabapentin 300 mg capsule 300 mg PO TID 07/07/21 07/07/21 Unknown History tramadol 50 mg tablet 50 mg PO Q4H PRN 07/07/21 07/07/21 Unknown History Allergies Allergy/AdvReac Type Severity Reaction Status Date / Time clindamycin Allergy uncontrollable Verified 06/19/21 13:08 vomiting vancomycin AdvReac Severe Unknown Verified 07/07/21 13:05 ciprofloxacin AdvReac Unknown ADR-Swelling Verified 06/19/21 13:08 of the Eye doxycycline AdvReac Unknown ADR-Vomitin Verified 06/19/21 13:08 g furosemide AdvReac Unknown Verified 06/19/21 13:08 PFSH Acute PFSH: Medical History Alcohol abuse Anxiety and depression CAD (coronary artery disease) has 2 stents Chronic obstructive pulmonary disease, unspecified Cigarette smoker COVID-19 (03/05/20) Essential (primary) hypertension Hepatic steatosis with hepatomegaly History of echocardiogram (03/06/20) Estimated EF 70%, normal diastolic function, normal pulmonary artery pressure, no valvular abnormality noted Intervertebral disc disorder with radiculopathy of lumbar region Low serum iron Mixed hyperlipidemia Morbid obesity BMI ~45 kg/m2 SVETLANA (obstructive sleep apnea) Osteoarthritis, chronic Personal history of nicotine dependence Slow transit constipation Urinary incontinence in female Vancomycin-induced nephrotoxicity (~06/2019) Vitamin D deficiency Surgical History H/O esophagogastroduodenoscopy (05/04/19) Status post gastric bypass with grade B esophagitis History of 2 sections History of cholecystectomy History of coronary artery stent placement History of gastric bypass History of hysterectomy History of left hip replacement History of right hip replacement S/P foot surgery, right 1) open trimalleolar fracture 05/2019 2) gangrene at operative site 06/2019 Status post colonoscopy with polypectomy (05/04/19) Descending colon polyp Family History Grandmother Hypertension Stroke Mother Hypertension Stroke Family/Other CAD (coronary artery disease) Denies family history of Diabetes Dementia Chronic kidney disease (CKD) Suicide Anesthesia complication Bleeding disorder Lung disease Cancer Social History Smoking and tobacco status: current every day smoker cigarettes Packs smoked per day: 0.5 Second hand smoke exposure: No Smoking risk assessment/counseling performed?: Yes Alcohol intake: current Alcohol intake frequency: 3 or more drinks per day Alcohol type: hard liquor Desire information about alcohol rehabilitation?: No Last alcohol use date: 06/16/19 Desire information about substance/drug rehabilitation?: No Counseling given: No Adopted: No Caregiver/support person: No Lives independently: Yes Household members: significant other Housing: House Marital status: Single Marital status details: Life partner Donny Nolen [phone] Number of children: 3 service: No Current occupational status: unemployed History of recent travel: No Current gender identity: Female Vitals/I&O/Wt Last Vital Signs Temp 97.8 F 07/07/21 08:57 Pulse 85 07/07/21 08:57 Resp 18 07/07/21 08:57 BP 122/73 07/07/21 08:57 Pulse Ox 95 07/07/21 08:57 Weight last 48 hrs Weight 117.934 kg Physical Exam Narrative: General exam is a jaundiced white female, confused, who can answer yes or no to a few limited questions. She is too encephalopathic to really complete a review of systems. HEENT: Atraumatic and normocephalic. Pupils equally round. Sclerae icteric. Oropharynx with slight erythema posteriorly. No obvious exudate. Mucous membranes dry. Neck is supple no lymphadenopathy or thyromegaly Cardiovascular regular rate and rhythm without murmur, no S3 or S4 Lungs clear to auscultation bilaterally. No wheezes or crackles. Abdomen is obese with positive bowel sounds. I am not for sure if there is any tenderness. Girth is too great to tell if there is significant ascites or organomegaly. exam demonstrates Jacobo, bilirubin is urine noted. Extremities 3-4+ edema, with a few blisters around the feet and ankles. Venous stasis changes. No cyanosis or clubbing Skin see findings above Neurologic: No focal deficits. Confused. Urinary Catheter Management: Jacobo: Cath Placed During This Visit: yes Urinary Catheter Date of Insertion: 07/07/21 Urinary Catheter Time of Insertion: 09:05 Data : 07/07/21 08:25 07/07/21 08:25 Other Labs: ABG demonstrates a pH of 7.56, PCO2 34, PO2 108 on 4 L per nasal cannula LFTs demonstrate elevated bilirubin of 4.6, AST of 56, ALT of 21, alk phos of 274 Magnesium 2.2 Calcium 9.1 Lactic acid 2.3 with repeat of 2.7 Troponin 18 with repeat of 22 Albumin of 2.2 Urinalysis with rare white blood cells Salicylates less than 0.3, acetaminophen less than 5 Alcohol less than 10 Gallbladder ultrasound is nondiagnostic secondary to body habitus X-ray right foot demonstrates large soft tissue mass unknown etiology and arthritis Ankle x-ray demonstrates arthritic disease Head CT negative Chest x-ray poor quality. Right lung base consolidation and effusion noted. At least a small pleural effusion has been present from August [address] June 23 demonstrated small right pleural effusion, rounded atelectasis, severe fatty liver with small amount of ascites. Question of peritonitis secondary to mild mesenteric and omental stranding on the CT EKG demonstrates sinus rhythm, normal axis, nonspecific ST-T wave changes Micro: Microbiology 07/07/21 09:40 Blood Culture - Preliminary Blood SPECIMEN COLLECTED 07/07/21 08:25 Blood Culture - Preliminary Blood SPECIMEN COLLECTED A&P Assessment and plan (1) Acute encephalopathy: Patient with significant acute encephalopathy on admission. I suspect we will find her ammonia level is high, and this will be consistent with hepatic encephalopathy. If so initiate Rifaximin. Lactulose will be started as soon as GI issues clarified with CT abdomena and pelvis, lipase Another possibility is acute metabolic encephalopathy secondary to infection. Continue to monitor for improvement Note CT head on admission no acute changes. Hold Neurontin Status: Acute (2) Hypokalemia: Supplementation initiated in the emergency department Recheck potassium following supplementation Magnesium level was checked and normal. Status: Acute (3) Acute kidney injury: Fluids initiated in the emergency department. Continue currently. Although total body fluid high, cannot diurese in face of hepatic encephalopathy. Monitor renal function closely. If worsens consider further treatment, such as albumin and midodrine. Monitor for any hypotension. Currently blood pressure adequate at 122/73. Hold beta-fernanda Status: Acute (4) Leukocytosis: There is a possibility of SBP and/or other infection. This could also be secondary to pneumonia with chest x-ray changes right lung. Unfortunately the patient did have recent surgery at [facility] on the right lung secondary to effusion as well as scraping of the lung. I will request records. This could certainly have altered her chest x-ray appearance as well. Antibiotics as below. Status: Acute (5) Pneumonia: Sputum culture, MRSA PCR Linezolid, linezolid IV Noted patient has a history of MRSA pneumonia within the last year or so. Vancomycin will not be used as concern for vancomycin induced nephrotoxicity in the past. Status: Acute (6) Transaminitis: Hepatitis panel has been ordered This could be secondary to alcoholic hepatitis. Thiamine 100 mg daily Hydration Repeat LFTs tomorrow, further treatment as indicated. Hold beta-fernanda Secondary to history of abdominal pain, worse in the last several weeks we will check a lipase and CT abdomen and pelvis without contrast. Status: Acute (7) CAD (coronary artery disease): Continue patient's Plavix. Hold statin secondary to elevated LFTs Note that CK was normal. Status: Chronic Qualifiers: Associated angina: without angina Coronary Disease-Associated Artery/Lesion type: [place] artery [place] vs. transplanted heart: [place] heart Qualified Code(s): I25.10 - Atherosclerotic heart disease of [place] coronary artery without angina pectoris (8) Chronic obstructive pulmonary disease, unspecified: DuoNeb as needed Budesonide twice daily Status: Chronic Qualifiers: COPD type: chronic bronchitis Chronic bronchitis type: unspecified Qualified Code(s): J42 - Unspecified chronic bronchitis Plan Blisters lower extremities. This is likely secondary to edema. Antibiotics as noted. We will work on reducing edema once hepatic encephalopathy improved. Multiple other medical problems as outlined in past medical history Full code Heparin will suffice for DVT prophylaxis Attestations Medical Necessity Statement*: Will need greater than 2 midnight stay for evaluation and treatment of encephalopathy, transaminitis with acute hepatitis, acute kidney injury, possible hepatorenal syndrome Critical Care Time: 77The high probability of a clinically significant, sudden or life threatening deterioration of the patient's [hepatic, pulmonary, neurologic system(s) required my full and direct attention, intervention and personal management. The critical care time is as shown. This time is in addition to time spent performing any reported procedures but includes the following: [x] Data and vital sign review and interpretation [x] Patient assessment, examination and intervention [x] Documentation [x] Medication orders and management Coding Level of Care Code Acute Manager Metrology for Michael Pool Diagnoses Acute encephalopathy G93.40 Hypokalemia E87.6 Acute kidney injury N17.9 Leukocytosis D72.829 Pneumonia J18.9 Transaminitis R74.01 CAD (coronary artery disease) I25.10 Associated angina: without angina Coronary Disease-Associated Artery/Lesion type: [place] artery [place] vs. transplanted heart: [place] heart Chronic obstructive pulmonary disease, unspecified J42 COPD type: chronic bronchitis Chronic bronchitis type: unspecified
[2021-07-07] MEDS: piperacillin-tazobactam 3.375 GM in dextrose 5% (plus) 50 ML IV (12:32)
--- NOTE | 2021-07-07 12:54 | ED_ITS ---
HPI - Altered Mental Status General: Chief Complaint: Altered Mental Status Stated Complaint: AMS Time Seen by Provider: 07/07/21 07:59 PFSH ED PFSH: Medical History Alcohol abuse Anxiety and depression CAD (coronary artery disease) has 2 stents Chronic obstructive pulmonary disease, unspecified Cigarette smoker COVID-19 (03/05/20) Essential (primary) hypertension Hepatic steatosis with hepatomegaly History of echocardiogram (03/06/20) Estimated EF 70%, normal diastolic function, normal pulmonary artery pressure, no valvular abnormality noted Intervertebral disc disorder with radiculopathy of lumbar region Low serum iron Mixed hyperlipidemia Morbid obesity BMI ~45 kg/m2 SVETLANA (obstructive sleep apnea) Osteoarthritis, chronic Personal history of nicotine dependence Slow transit constipation Urinary incontinence in female Vancomycin-induced nephrotoxicity (~06/2019) Vitamin D deficiency Surgical History H/O esophagogastroduodenoscopy (05/04/19) Status post gastric bypass with grade B esophagitis History of 2 sections History of cholecystectomy History of coronary artery stent placement History of gastric bypass History of hysterectomy History of left hip replacement History of right hip replacement S/P foot surgery, right 1) open trimalleolar fracture 05/2019 2) gangrene at operative site 06/2019 Status post colonoscopy with polypectomy (05/04/19) Descending colon polyp Family History Grandmother Hypertension Stroke Mother Hypertension Stroke Family/Other CAD (coronary artery disease) Denies family history of Diabetes Dementia Chronic kidney disease (CKD) Suicide Anesthesia complication Bleeding disorder Lung disease Cancer Social History Smoking and tobacco status: current every day smoker cigarettes Packs smoked per day: 0.5 Second hand smoke exposure: No Smoking risk assessment/counseling performed?: Yes Alcohol intake: current Alcohol intake frequency: 3 or more drinks per day Alcohol type: hard liquor Desire information about alcohol rehabilitation?: No Last alcohol use date: 06/16/19 Desire information about substance/drug rehabilitation?: No Counseling given: No Adopted: No Caregiver/support person: No Lives independently: Yes Household members: significant other Housing: House Marital status: Single Marital status details: Life partner Donny Nolen [phone] Number of children: 3 service: No Current occupational status: unemployed History of recent travel: No Current gender identity: Female Physical Exam Urinary Catheter Management: Jacobo: Cath Placed During This Visit: yes Urinary Catheter Date of Insertion: 07/07/21 Urinary Catheter Time of Insertion: 09:05 Course 2 Vital Signs: Vital signs: Vital Signs Temperature 97.8 F 07/07/21 08:57 Pulse Rate 85 07/07/21 08:57 Respiratory Rate 18 07/07/21 08:57 Blood Pressure 122/73 07/07/21 08:57 Pulse Oximetry 95 07/07/21 08:57 MDM - Altered Mental Status Lab Data : 07/07/21 08:25 07/07/21 08:25 Radiology Impressions Chest X-Ray 07/07/21 08:05 IMPRESSION: 1. Quality of this examination is limited by patient's body habitus. 2. Again noted is consolidation at the RIGHT lung base with obscuration of the hemidiaphragm. Small effusion and atelectasis have been noted on prior studies. No change. Head CT 07/07/21 08:05 IMPRESSION: 1. No acute intracranial hemorrhage or edema. 2. Stable noncontrast head CT. Ankle X-Ray 07/07/21 08:20 IMPRESSION: Posttraumatic (remote) osteoarthritis. No acute abnormality identified. Foot X-Ray 07/07/21 08:20 IMPRESSION: Large soft tissue mass on the dorsum of the foot of unknown etiology. Osteoarthritis. No acute abnormality identified. Gallbladder Ultrasound 07/07/21 09:35 IMPRESSION: Nondiagnostic evaluation secondary to body habitus. Laboratory Results WBC 15.1 10^3/uL (4.0-10.0) H 07/07/21 08:25 RBC 5.00 10^6/uL (4.1-5.3) 07/07/21 08:25 Hgb 16.0 g/dL (11.5-15.3) H 07/07/21 08:25 Hct 45.1 % (37.0-47.0) 07/07/21 08:25 MCV 90.2 fl (81-99) 07/07/21 08:25 MCH 32.0 pg (28.0-34.0) 07/07/21 08:25 MCHC 35.5 g/dL (30.0-36.0) 07/07/21 08:25 RDW 20.0 % (12.1-15.1) H 07/07/21 08:25 Plt Count 215 10^3/cmm (130-400) 07/07/21 08:25 MPV 10.3 fL (7.4-10.4) 07/07/21 08:25 Neut % (Auto) 76.4 % 07/07/21 08:25 Lymph % (Auto) 12.9 % 07/07/21 08:25 Bledsoe % (Auto) 9.4 % 07/07/21 08:25 Eos % (Auto) 0.3 % 07/07/21 08:25 Baso % (Auto) 0.5 % 07/07/21 08:25 Neut # (Auto) 11.53 10^3/uL (1.8-7.7) H 07/07/21 08:25 Lymph # (Auto) 1.9 10^3/uL (0.8-4.8) 07/07/21 08:25 Bledsoe # (Auto) 1.4 10^3/uL (0.2-0.9) H 07/07/21 08:25 Eos # (Auto) 0.1 10^3/uL (0.0-0.8) 07/07/21 08:25 Baso # (Auto) 0.1 10^3/uL (0.0-0.1) 07/07/21 08:25 Nucleated RBC % (auto) 0.1 % 07/07/21 08:25 Nucleated RBCs # 0.0 /100WBC 07/07/21 08:25 Specimen Type Arterial 07/07/21 08:38 Sample Site Radial, right 07/07/21 08:38 ABG pH 7.56 (7.35-7.45) H 07/07/21 08:38 ABG pCO2 34.2 mmHg (35-45) L 07/07/21 08:38 ABG pO2 108.0 mmHg (80.0-100.0) H 07/07/21 08:38 ABG HCO3 30.9 mmol/L (22-26) H 07/07/21 08:38 ABG O2 Saturation 99.1 07/07/21 08:38 ABG Base Excess 8.6 mmol/L (-2.0-2.0) H 07/07/21 08:38 Amrit Test Pos 07/07/21 08:38 A-a O2 Gradient 13.4 mmHg (5-10) H 07/07/21 08:38 Hematocrit 49.2 % (37-47) H 07/07/21 08:38 Hgb O2 Saturation 96.5 % (95-100) 07/07/21 08:38 Carboxyhemoglobin 2.0 %THgb (0.4-20.1) 07/07/21 08:38 Methemoglobin 0.7 % (0.4-1.5) 07/07/21 08:38 Total Hemoglobin 16.1 g/dL (12-16) H 07/07/21 08:38 Sodium 135.0 mmol/L (131-143) 07/07/21 08:38 Potassium 2.7 mmol/L (3.5-5.0) L 07/07/21 08:38 Glucose 92.0 mg/dL (70-115) 07/07/21 08:38 Ionized Calcium 1.1 mmol/L (1.1-1.4) 07/07/21 08:38 O2 Delivery Device Nc 07/07/21 08:38 O2 Liters/Min 4.0 % 07/07/21 08:38 FiO2 36.0 % 07/07/21 08:38 Shop And Alteration Tailor ID Ed 07/07/21 08:38 Sodium 137 mmol/L (136-145) 07/07/21 08:25 Potassium 2.6 mmol/L (3.5-5.1) L* 07/07/21 08:25 Chloride 94 mmol/L (98-107) L 07/07/21 08:25 Carbon Dioxide 31 mmol/L (22-29) H 07/07/21 08:25 Anion Gap 14.6 (5-19) 07/07/21 08:25 BUN 14 mg/dL (8-23) 07/07/21 08:25 Creatinine 1.4 mg/dL (0.5-0.9) H 07/07/21 08:25 GFR Calculation 38.1 mL/min (90-130) L 07/07/21 08:25 Glucose 91 mg/dL (65-115) 07/07/21 08:25 Calculated Osmolality 284 mOsm/kg (285-295) L 07/07/21 08:25 Lactic Acid 2.3 mmol/L (0.5-2.2) H 07/07/21 08:25 Lactic Acid (Sepsis) 2.7 mmol/L (0.5-2.2) H 07/07/21 11:05 Calcium 9.1 mg/dL (8.5-10.5) 07/07/21 08:25 Magnesium 2.2 mg/dL (1.7-2.3) 07/07/21 08:25 Total Bilirubin 4.6 mg/dL (0.15-1.2) H 07/07/21 08:25 AST 56 U/L (0-32) H 07/07/21 08:25 ALT 21 U/L (0-33) 07/07/21 08:25 Alkaline Phosphatase 274 IU/L (35-105) H 07/07/21 08:25 Creatine Kinase 24 U/L (26-192) L 07/07/21 08:25 Troponin T Baseline 18 ng/L (0-10) H 07/07/21 08:25 Troponin T 120 Minute 22.34 ng/L (0-10) H 07/07/21 10:32 Delta Troponin T 4.34 ABS# (0-10) 07/07/21 10:32 Total Protein 6.6 g/dL (6.6-8.7) 07/07/21 08:25 Albumin 2.2 g/dL (3.5-5.2) L 07/07/21 08:25 Globulin 4.4 g/dL (1.3-4.6) 07/07/21 08:25 Urine Color [place] (Yellow) 07/07/21 08:55 Urine Appearance Clear (CLEAR) 07/07/21 08:55 Urine pH 6 (5-7) 07/07/21 08:55 Ur Specific [place] 1.015 (1.005-1.030) 07/07/21 08:55 Urine Protein Neg (Negative) 07/07/21 08:55 Urine Glucose (UA) Norm (Normal) 07/07/21 08:55 Urine Ketones Negative (Negative) 05/09/22 08:55 Urine Blood Neg (Negative) 07/07/21 08:55 Urine Nitrate Negative (Negative) 07/07/21 08:55 Urine Bilirubin 1+ (Negative) H 07/07/21 08:55 Urine Urobilinogen 8 mg/dL (Negative) H 07/07/21 08:55 Ur Leukocyte Esterase Trace (Negative) H 07/07/21 08:55 Urine RBC None /hpf (0-2) 07/07/21 08:55 Urine WBC Rare /hpf (0-5) 07/07/21 08:55 Ur Squamous Epith Cells None /hpf (0-5) 07/07/21 08:55 Amorphous Sediment Not Reportable 07/07/21 08:55 Urine Bacteria 1+ /hpf (NONE) H 07/07/21 08:55 Salicylates < 0.3 mg/dL (3-10) L 07/07/21 08:25 Acetaminophen < 5.0 ug/mL (10-30) L 07/07/21 08:25 Ethyl Alcohol < 10 mg/dL (0-10) 07/07/21 08:25 Discharge Plan Discharge Admit Provider: Matias Sheikh Condition: Stable Coding Level of Care Code ED Outside Contractor Sales for Michael Pool
--- NOTE | 2021-07-07 13:02 | W.ED.GENADLT ---
HPI - General Adult General: Chief complaint: Altered Mental Status Stated complaint: AMS Time Seen by Provider: 07/07/21 07:59 Source: patient Mode of arrival: EMS Limitations: altered mental status History of Present Illness: 61-year-old female presents emergency room with altered mental status and first encounter she would moan and cry out discomfort but would not really give any other history. She will open her eyes to verbal stimuli she localizes pain. She has a large blister on the dorsum of her right foot. Patient has a history of heavy alcohol use in the past unrelated falls with fractures. Onset (ago): unknown Severity: severe Relieving factors: none Associated symptoms: Reports confusion; Deny chest pain, cough, decreased appetite or dyspnea Treatments prior to arrival: none Review of Systems General: Reports: Other Card: Denies: chest pain Resp: Denies: dyspnea GI: Denies: abdominal pain : Denies: flank pain Neuro: Reports: confusion PFSH ED PFSH: Medical History Alcohol abuse Anxiety and depression CAD (coronary artery disease) has 2 stents Chronic obstructive pulmonary disease, unspecified Cigarette smoker COVID-19 (03/05/20) Essential (primary) hypertension Hepatic steatosis with hepatomegaly History of echocardiogram (03/06/20) Estimated EF 70%, normal diastolic function, normal pulmonary artery pressure, no valvular abnormality noted Intervertebral disc disorder with radiculopathy of lumbar region Low serum iron Mixed hyperlipidemia Morbid obesity BMI ~45 kg/m2 SVETLANA (obstructive sleep apnea) Osteoarthritis, chronic Personal history of nicotine dependence Slow transit constipation Urinary incontinence in female Vancomycin-induced nephrotoxicity (~06/2019) Vitamin D deficiency Surgical History H/O esophagogastroduodenoscopy (05/04/19) Status post gastric bypass with grade B esophagitis History of 2 sections History of cholecystectomy History of coronary artery stent placement History of gastric bypass History of hysterectomy History of left hip replacement History of right hip replacement S/P foot surgery, right 1) open trimalleolar fracture 05/2019 2) gangrene at operative site 06/2019 Status post colonoscopy with polypectomy (05/04/19) Descending colon polyp Family History Grandmother Hypertension Stroke Mother Hypertension Stroke Family/Other CAD (coronary artery disease) Denies family history of Diabetes Dementia Chronic kidney disease (CKD) Suicide Anesthesia complication Bleeding disorder Lung disease Cancer Social History Smoking and tobacco status: current every day smoker cigarettes Packs smoked per day: 0.5 Second hand smoke exposure: No Smoking risk assessment/counseling performed?: Yes Alcohol intake: current Alcohol intake frequency: 3 or more drinks per day Alcohol type: hard liquor Desire information about alcohol rehabilitation?: No Last alcohol use date: 06/16/19 Desire information about substance/drug rehabilitation?: No Counseling given: No Adopted: No Caregiver/support person: No Lives independently: Yes Household members: significant other Housing: House Marital status: Single Marital status details: Life partner Donny Nolen [phone] Number of children: 3 service: No Current occupational status: unemployed History of recent travel: No Current gender identity: Female Physical Exam Const: COMMON NORMALS: no acute distress ORIENTATION/CONSCIOUSNESS: Yes awake HENMT: COMMON NORMALS: normocephalic and atraumatic HEAD & SCALP: normocephalic and atraumatic Neck/C-Spine: COMMON NORMALS: no JVD Resp: COMMON NORMALS: normal respiratory effort, No retractions, No use of accessory muscles and clear to auscultation bilaterally AUSCULTATION: clear to auscultation bilaterally Cardio: COMMON NORMALS: no JVD, regular rate, regular rhythm and No murmurs present (Cardio) RATE: regular rate RHYTHM: regular rhythm GI: COMMON NORMALS: Soft to palpation and No hepatosplenomegaly present AUSCULTATION: Yes normoactive bowel sounds PALPATION: Yes Soft to palpation, No Tenderness to palpation present (GI), No Guarding due to palpation present (GI) and Yes No hepatosplenomegaly present Extremity: OTHER: 2+ edema lower extremities a large bullous blister on the dorsum of the right foot. Course Vital Signs: Vital signs: Vital Signs Temperature 97.8 F 07/07/21 08:57 Pulse Rate 85 07/07/21 08:57 Respiratory Rate 18 07/07/21 08:57 Blood Pressure 122/73 07/07/21 08:57 Pulse Oximetry 95 07/07/21 08:57 [facility] - General Adult Medical Decision Making Acute encephalopathy. Suspect some of this may be alcohol related ammonia level is pending discussed with Dr. Burrell admit to the ICU. Potassium has begun to be replaced. Medical Records I reviewed the patient's medical records. Lab Data I reviewed the patient's lab results. : 07/07/21 08:25 07/07/21 08:25 Radiology Impressions Chest X-Ray 07/07/21 08:05 IMPRESSION: 1. Quality of this examination is limited by patient's body habitus. 2. Again noted is consolidation at the RIGHT lung base with obscuration of the hemidiaphragm. Small effusion and atelectasis have been noted on prior studies. No change. Head CT 07/07/21 08:05 IMPRESSION: 1. No acute intracranial hemorrhage or edema. 2. Stable noncontrast head CT. Ankle X-Ray 07/07/21 08:20 IMPRESSION: Posttraumatic (remote) osteoarthritis. No acute abnormality identified. Foot X-Ray 07/07/21 08:20 IMPRESSION: Large soft tissue mass on the dorsum of the foot of unknown etiology. Osteoarthritis. No acute abnormality identified. Gallbladder Ultrasound 07/07/21 09:35 IMPRESSION: Nondiagnostic evaluation secondary to body habitus. Laboratory Results WBC 15.1 10^3/uL (4.0-10.0) H 07/07/21 08:25 RBC 5.00 10^6/uL (4.1-5.3) 07/07/21 08:25 Hgb 16.0 g/dL (11.5-15.3) H 07/07/21 08:25 Hct 45.1 % (37.0-47.0) 07/07/21 08:25 MCV 90.2 fl (81-99) 07/07/21 08:25 MCH 32.0 pg (28.0-34.0) 07/07/21 08:25 MCHC 35.5 g/dL (30.0-36.0) 07/07/21 08:25 RDW 20.0 % (12.1-15.1) H 07/07/21 08:25 Plt Count 215 10^3/cmm (130-400) 07/07/21 08:25 MPV 10.3 fL (7.4-10.4) 07/07/21 08:25 Neut % (Auto) 76.4 % 07/07/21 08:25 Lymph % (Auto) 12.9 % 07/07/21 08:25 Coles % (Auto) 9.4 % 07/07/21 08:25 Eos % (Auto) 0.3 % 07/07/21 08:25 Baso % (Auto) 0.5 % 07/07/21 08:25 Neut # (Auto) 11.53 10^3/uL (1.8-7.7) H 07/07/21 08:25 Lymph # (Auto) 1.9 10^3/uL (0.8-4.8) 07/07/21 08:25 Coles # (Auto) 1.4 10^3/uL (0.2-0.9) H 07/07/21 08:25 Eos # (Auto) 0.1 10^3/uL (0.0-0.8) 07/07/21 08:25 Baso # (Auto) 0.1 10^3/uL (0.0-0.1) 07/07/21 08:25 Nucleated RBC % (auto) 0.1 % 07/07/21 08:25 Nucleated RBCs # 0.0 /100WBC 07/07/21 08:25 Specimen Type Arterial 07/07/21 08:38 Sample Site Radial, right 07/07/21 08:38 ABG pH 7.56 (7.35-7.45) H 07/07/21 08:38 ABG pCO2 34.2 mmHg (35-45) L 07/07/21 08:38 ABG pO2 108.0 mmHg (80.0-100.0) H 07/07/21 08:38 ABG HCO3 30.9 mmol/L (22-26) H 07/07/21 08:38 ABG O2 Saturation 99.1 07/07/21 08:38 ABG Base Excess 8.6 mmol/L (-2.0-2.0) H 07/07/21 08:38 Amrit Test Pos 07/07/21 08:38 A-a O2 Gradient 13.4 mmHg (5-10) H 07/07/21 08:38 Hematocrit 49.2 % (37-47) H 07/07/21 08:38 Hgb O2 Saturation 96.5 % (95-100) 07/07/21 08:38 Carboxyhemoglobin 2.0 %THgb (0.4-20.1) 07/07/21 08:38 Methemoglobin 0.7 % (0.4-1.5) 07/07/21 08:38 Total Hemoglobin 16.1 g/dL (12-16) H 07/07/21 08:38 Sodium 135.0 mmol/L (131-143) 07/07/21 08:38 Potassium 2.7 mmol/L (3.5-5.0) L 07/07/21 08:38 Glucose 92.0 mg/dL (70-115) 07/07/21 08:38 Ionized Calcium 1.1 mmol/L (1.1-1.4) 07/07/21 08:38 O2 Delivery Device Nc 07/07/21 08:38 O2 Liters/Min 4.0 % 07/07/21 08:38 FiO2 36.0 % 07/07/21 08:38 Administrative Services Manager ID Ed 07/07/21 08:38 Sodium 137 mmol/L (136-145) 07/07/21 08:25 Potassium 2.6 mmol/L (3.5-5.1) L* 07/07/21 08:25 Chloride 94 mmol/L (98-107) L 07/07/21 08:25 Carbon Dioxide 31 mmol/L (22-29) H 07/07/21 08:25 Anion Gap 14.6 (5-19) 07/07/21 08:25 BUN 14 mg/dL (8-23) 07/07/21 08:25 Creatinine 1.4 mg/dL (0.5-0.9) H 07/07/21 08:25 GFR Calculation 38.1 mL/min (90-130) L 07/07/21 08:25 Glucose 91 mg/dL (65-115) 07/07/21 08:25 Calculated Osmolality 284 mOsm/kg (285-295) L 07/07/21 08:25 Lactic Acid 2.3 mmol/L (0.5-2.2) H 07/07/21 08:25 Lactic Acid (Sepsis) 2.7 mmol/L (0.5-2.2) H 07/07/21 11:05 Calcium 9.1 mg/dL (8.5-10.5) 07/07/21 08:25 Magnesium 2.2 mg/dL (1.7-2.3) 07/07/21 08:25 Total Bilirubin 4.6 mg/dL (0.15-1.2) H 07/07/21 08:25 AST 56 U/L (0-32) H 07/07/21 08:25 ALT 21 U/L (0-33) 07/07/21 08:25 Alkaline Phosphatase 274 IU/L (35-105) H 07/07/21 08:25 Creatine Kinase 24 U/L (26-192) L 07/07/21 08:25 Troponin T Baseline 18 ng/L (0-10) H 07/07/21 08:25 Troponin T 120 Minute 22.34 ng/L (0-10) H 07/07/21 10:32 Delta Troponin T 4.34 ABS# (0-10) 07/07/21 10:32 Total Protein 6.6 g/dL (6.6-8.7) 07/07/21 08:25 Albumin 2.2 g/dL (3.5-5.2) L 07/07/21 08:25 Globulin 4.4 g/dL (1.3-4.6) 07/07/21 08:25 Urine Color [place] (Yellow) 07/07/21 08:55 Urine Appearance Clear (CLEAR) 07/07/21 08:55 Urine pH 6 (5-7) 07/07/21 08:55 Ur Specific Lawrence 1.015 (1.005-1.030) 07/07/21 08:55 Urine Protein Neg (Negative) 07/07/21 08:55 Urine Glucose (UA) Norm (Normal) 07/07/21 08:55 Urine Ketones Negative (Negative) 07/07/21 08:55 Urine Blood Neg (Negative) 07/07/21 08:55 Urine Nitrate Negative (Negative) 07/07/21 08:55 Urine Bilirubin 1+ (Negative) H 07/07/21 08:55 Urine Urobilinogen 8 mg/dL (Negative) H 07/07/21 08:55 Ur Leukocyte Esterase Trace (Negative) H 07/07/21 08:55 Urine RBC None /hpf (0-2) 07/07/21 08:55 Urine WBC Rare /hpf (0-5) 07/07/21 08:55 Ur Squamous Epith Cells None /hpf (0-5) 07/07/21 08:55 Amorphous Sediment Not Reportable 07/07/21 08:55 Urine Bacteria 1+ /hpf (NONE) H 07/07/21 08:55 Salicylates < 0.3 mg/dL (3-10) L 07/07/21 08:25 Acetaminophen < 5.0 ug/mL (10-30) L 07/07/21 08:25 Ethyl Alcohol < 10 mg/dL (0-10) 07/07/21 08:25 Discharge Plan Discharge Patient Disposition: Admitted As Inpatient Admit Provider: Matias Sheikh Clinical Impression: Acute encephalopathy, Hypokalemia, History of alcohol abuse Condition: Stable Coding Level of Care Code ED Aoc Plans Intelligence Officer for Michael Pool
[2021-07-07 13:08] LABS: Partial Thromboplastin Time 36.7 SECONDS (23.9-36.7)
[2021-07-07 13:16] LABS: Thyroid Stimulating Hormone 20.86 uIU/mL (0.27-4.20); Vitamin B12 1449 pg/mL (232-1245)
--- NOTE | 2021-07-07 13:19 | CT_ITS ---
WS: [id number] CT ABDOMEN AND PELVIS NONCONTRAST HISTORY: abdominal pain TECHNIQUE: Imaging performed through the abdomen and pelvis. Coronal and sagittal reformats are submi tted. All CT scans at [facility] use at least one of these dose optimization techniques: auto mated exposure control; mA and/or kV adjustment per patient size (includes targeted exams where dose is matched to clinical indication); or iterative reconstruction. DLP: 1945.99 mGy.cm COMPARISON: 06/23/2021 Lower thorax: Mild groundglass attenuation at the lung bases may be due to patient's body habitus or small amount of fluid overload. Heart is slightly enlarged. There is a small RIGHT pleural effusion a nd rounded atelectasis at the RIGHT lung base. Liver: Marked low attenuation throughout the liver. There is also small amount of fluid surrounding t he liver which has slightly improved since the prior examination. Diameter of the perihepatic fluid i s 1.7 cm as compared to a maximum diameter of 3.1 cm on the prior examination. Liver is very heteroge neous. Gallbladder: Prior cholecystectomy. Common bile duct is not dilated. Pancreas: Mild pancreatic atrophy and fatty replacement. Spleen: Calcification adjacent to the spleen is similar to the prior study. Adrenal glands: Normal. No mass. Right kidney: Normal size kidney with no mass or hydronephrosis. Left kidney: Normal size kidney with no mass or hydronephrosis. Aorta: Mild atherosclerosis abdominal aorta with no aneurysm. No free fluid, intraperitoneal air or significant lymphadenopathy. GI tract: Prior gastric bypass surgery. No small bowel dilatation. Prior appendectomy. Abdominal wall: Soft tissue anasarca. Pelvis: Prior hysterectomy. No free fluid or adenopathy. Osseous structures: Unremarkable. CT/CT abdomen pelvis wo con [id number] IMPRESSION: 1. Severe low attenuation throughout the liver most likely due to hepatic stea tosis as similar findings may be due to acute hepatitis. 2. Small amount of perihepatic fluid has decreased in diameter since 06/23/2021 from 3.1 to 1.7 cm in diameter. 3. Small RIGHT pleural effusion with focal consolidation at the lung bases whi ch is probably rounded atelectasis. 4. Status post cholecystectomy. No bile duct dilatation. 5. Soft tissue anasarca.
--- NOTE | 2021-07-07 13:21 | USCV_ITS ---
Cale Zenaida Age: 61 Gender: F : 1960 Exam Date: 07/07/2021 15:32 Ordering Phys: Matias Sheikh MD Technologist: Bradly Martinez [place] [facility] [place]: [place] legs HISTORY: Lower extremity swelling. PROCEDURES: The venous duplex Doppler examination of both lower extremities was performed in the standard fashion. Venous duplex imaging was performed in only the left lower extremity. The following venous structures were evaluated: common femoral vein, profunda vein, proximal portion of the greater saphenous vein, superficial femoral vein, and the popliteal vein. In addition, the posterior tibial and peroneal trunk were evaluated. FINDINGS: Normal 2-D Doppler and augmentation and compressibility throughout the lower extremity venous structures. Additional imaging through the proximal calf veins also reveals no thrombus. Limited evaluation of the greater saphenous vein is patent with no thrombus.. CONCLUSIONS Limited by body habitus. No evidence of bilateral lower extremity DVT. Subcutaneous edema, bilateral. Dr. Caryl Garcia DO (Electronically Signed) Final Date: 08 Jul 2021 07:42 S
[2021-07-07 13:23] LABS: Ammonia 104 umol/L (11-51)
[2021-07-07 13:29] LABS: Lipase 14 U/L (13-60)
[2021-07-07 13:43] LABS: Hepatitis A Antibody IgM Non-Reactive (Nonreactive); Hepatitis B Core IgM Non-Reactive (Nonreactive); Hepatitis B Surface Antigen Non-Reactive (Nonreactive); Hepatitis C Virus Antibody Non-Reactive (Nonreactive)
--- NOTE | 2021-07-07 14:06 | ECG_ITS ---
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 Measurements Intervals [place] Rate: 85 P: 53 WA: 150 QRS: 40 QRSD: 93 T: 190 QT: 390 QTc: 465 Interpretive Statements SINUS RHYTHM NONSPECIFIC T-WAVE ABNORMALITY Compared to ECG 07/07/2021 11:18:56 No significant changes Electronically Signed On 07-07-2021 21:42:11 CDT by Aimee Pelaez M.D. [id number]
[2021-07-07 14:09] LABS: Free T4 Free Thyroxine 0.87 ng/dL (0.82-1.77); T3 Free 1.4 PG/ML (2.0-4.4)
[2021-07-07 15:00] LABS: Troponin 5 6HR 17.55 ng/L (0-10)
[2021-07-07 15:09] LABS: Troponin 5 6HR Delta -0.45 ng/L (0-12)
[2021-07-07] MEDS: heparin 5,000 unit/mL INJ 1 mL 5000 UNIT SUBCUT (15:42)
[2021-07-07] MEDS: sodium chloride 0.9% 1,000 ML 125 ML IV ×2 (15:42→22:56)
[2021-07-07] MEDS: linezolid premix 600 MG/300 ML PREMIX 300 MG IV (15:42)
[2021-07-07] MEDS: piperacillin-tazobactam 3.375 GM in sodium chloride 0.9% (plus) 50 ML IV (17:56)
--- NOTE | 2021-07-07 18:22 | PC.NURSE ---
Pt was admitted to ICU at 1400 via bed on room air. She is alert to self only and has many wounds. On the top of right foot is a large blister filled with fluid, the right heel has an unstageable ulcer, bilateral arms are covered in bruises and groin area is excoriated. Significant other is at bedside and refused to answer any questions for pt and he took all belongings home.
--- NOTE | 2021-07-07 19:08 | PC.NURSE ---
Large scabbed area is noted to the roof of mouth area that bleeds intermittently. Oral care done per orders.
[2021-07-07 19:43] LABS: Anion Gap 14.4 (5-19); Blood Urea Nitrogen 15 mg/dL (8-23); Carbon Dioxide 29 mmol/L (22-29); Chloride 95 mmol/L (98-107); Glomerular Filtration Rate 50.3 mL/min (90-130); Glucose 92 mg/dL (65-115); Osmolality Calculated 280 mOsm/kg (285-295); Potassium 3.4 mmol/L (3.5-5.1); Sodium 135 mmol/L (136-145)
[2021-07-07 19:56] LABS: Potassium 3.3 mmol/L (3.5-5.1)
[2021-07-07] MEDS: ipratropium-albuterol 3 mL Neb INHALATION (20:18)
[2021-07-07] MEDS: budesonide 0.5 mg/2 mL Neb INHALATION (20:18)
[2021-07-07] MEDS: lidocaine 1% 5 ML in potassium chloride premix 100 ML 25 ML IV (21:44)
--- NOTE | 2021-07-07 21:50 | PC.NURSE ---
Attempted bedside swallow study to assess if patient would be able to safely take PO medications. Pt was given two ice chips which she fell back asleep with in her mouth. At this time, this nurse does not feel it would be safe to administer PO medications
[2021-07-08] VITALS (40 sets, daily range): BP systolic 94–139; BP diastolic 50–116; PULSE 88–120; RESP 12–40; TEMP 36.2–36.6; O2SAT 88–98
[2021-07-08] MEDS: piperacillin-tazobactam 3.375 GM in sodium chloride 0.9% (plus) 50 ML IV ×2 (01:43→09:52)
[2021-07-08] MEDS: heparin 5,000 unit/mL INJ 1 mL 5000 UNIT SUBCUT (01:43)
[2021-07-08] MEDS: linezolid premix 600 MG/300 ML PREMIX 300 MG IV ×2 (01:44→14:55)
[2021-07-08 04:41] LABS: Basophils # 0.1 10^3/uL (0.0-0.1); Basophils % 0.4 %; Eosinophils # 0.1 10^3/uL (0.0-0.8); Eosinophils % 0.6 %; Hemoglobin 15.6 g/dL (11.5-15.3); Lymphocytes # 2.1 10^3/uL (0.8-4.8); Lymphocytes % 12.9 %; Mean Corpuscular HGB Conc 34.7 g/dL (30.0-36.0); Mean Corpuscular Hemoglobin 32.3 pg (28.0-34.0); Mean Corpuscular Volume 93.2 fl (81-99); Mean Platelet Volume 10.6 fL (7.4-10.4); Monocytes # 1.6 10^3/uL (0.2-0.9); Monocytes % 9.6 %; Neutrophils # 12.31 10^3/uL (1.8-7.7); Neutrophils % 76.1 %; Nucleated Red Blood Cells % 0.1 %; Platelet Count 204 10^3/cmm (130-400); Red Blood Count 4.83 10^6/uL (4.1-5.3); Red Cell Distribution Width 20.4 % (12.1-15.1); White Blood Count 16.2 10^3/uL (4.0-10.0)
[2021-07-08 04:45] LABS: Ammonia 124 umol/L (11-51)
[2021-07-08 04:47] LABS: INR 1.32 (0.8-1.2)
[2021-07-08 05:06] LABS: Alanine Aminotransferase 21 U/L (0-33); Albumin Level 1.9 g/dL (3.5-5.2); Alkaline Phosphatase 254 IU/L (35-105); Anion Gap 16.4 (5-19); Aspartate Amino Transferase 65 U/L (0-32); Blood Urea Nitrogen 15 mg/dL (8-23); Carbon Dioxide 28 mmol/L (22-29); Chloride 96 mmol/L (98-107); Globulin 4.8 g/dL (1.3-4.6); Glomerular Filtration Rate 45.5 mL/min (90-130); Glucose 97 mg/dL (65-115); Magnesium 2.2 mg/dL (1.7-2.3); Osmolality Calculated 285 mOsm/kg (285-295); Potassium 3.4 mmol/L (3.5-5.1); Sodium 137 mmol/L (136-145); Total Bilirubin 4.9 mg/dL (0.15-1.2); Total Protein 6.7 g/dL (6.6-8.7)
[2021-07-08 05:34] LABS: Bacillus cereus group Not Detected (NOT DETECT); Bacillus subtillis group Not Detected (NOT DETECT); Corynebacterium Not Detected (NOT DETECT); Cutibacterium acnes (P.acnes) Not Detected (NOT DETECT); Enterococcus Not Detected (NOT DETECT); Enterococcus faecalis Not Detected (NOT DETECT); Enterococcus faecium Not Detected (NOT DETECT); Lactobacillus species Not Detected (NOT DETECT); Listeria Not Detected (NOT DETECT); Listeria monocytogenes Not Detected (NOT DETECT); Micrococcus Not Detected (NOT DETECT); Pan Candida Not Detected (NOT DETECT); Pan Gram-Negative Not Detected (NOT DETECT); Staphylococcus epidermidis Detected (NOT DETECT); Staphylococcus lugdunensis Not Detected (NOT DETECT); Staphylococcus species Detected (NOT DETECT); Streptococcus agalactiae Not Detected (NOT DETECT); Streptococcus anginosus group Not Detected (NOT DETECT); Streptococcus pneumoniae Not Detected (NOT DETECT); Streptococcus pyogenes Not Detected (NOT DETECT); Streptococcus species Detected (NOT DETECT); mecA Detected (NOT DETECT); mecC Not Detected (NOT DETECT)
--- NOTE | 2021-07-08 07:46 | USCV_ITS ---
Zenaida Madsen Age: 61 Gender: F : 1960 Exam Date: 07/08/2021 08:13 Ordering Phys: Matias Sheikh MD Technologist: Bradly Martinez [place] [facility] [place]: Congestive heart failure BP: 98 / 68 HR: 129 Rhythm: Sinus Technical Quality: Suboptimal MEASUREMENTS (Male / Female) Normal Values 2D ECHO LV Ejection Fraction MOD 2C 73.4 % LV Ejection Fraction 2C AL 73.2 % DOPPLER AV Peak Velocity 222.0 cm/s LVOT Peak Velocity 117.0 cm/s MV Area PHT 5.0 cm squared Mitral E to A Ratio 1.3 MV E' Velocity 38.5 cm/s Mitral E to MV E' Ratio 7.1 Mitral E to LV E' Lateral Ratio 7.7 Mitral E to LV E' Septal Ratio 6.6 TR Peak Velocity 212.3 cm/s TR Peak Gradient 18.0 mmHg FINDINGS Left Ventricle Normal left ventricular size and systolic function. Left ventricular ejection fraction is estimated at 70-75%. No diagnostic regional wall motion abnormality. Right Ventricle Probably normal right ventricle size and systolic function.RVSP could not be calculated due to incomplete tricuspid regurgitation velocity profile. Right Atrium Right atrium not well visualized. Normal right atrial size. Left Atrium Grossly normal left atrial size. Mitral Valve Structurally normal mitral valve. Aortic Valve Aortic valve not well visualized. No aortic valve stenosis. No aortic valve regurgitation. Tricuspid Valve Tricuspid valve not well visualized. Trace tricuspid valve regurgitation. Pulmonic Valve Pulmonic valve not well visualized. Pericardium No pericardial effusion. Aorta CONCLUSIONS 1. This is a technically difficult study with no parasternal windows. 2. Normal left ventricular size and systolic function. Left ventricular ejection fraction is estimated at 70-75%. No diagnostic regional wall motion abnormality. 3. When compared to prior echocardiogram dated 03/06/2020, there may not have been any significant change. Monik Joyce MD (Electronically Signed) Final Date: 08 Jul 2021 12:58 S
[2021-07-08] MEDS: ipratropium-albuterol 3 mL Neb INHALATION ×2 (08:07→20:04)
[2021-07-08] MEDS: budesonide 0.5 mg/2 mL Neb INHALATION ×2 (08:07→20:04)
[2021-07-08] MEDS: lidocaine 1% 5 ML in potassium chloride premix 100 ML 25 ML IV (09:53)
[2021-07-08] MEDS: sodium chloride 0.9% 1,000 ML 125 ML IV (09:54)
--- NOTE | 2021-07-08 10:31 | XR_ITS ---
WS: [id number] PORTABLE CHEST HISTORY: NG Placement COMPARISON: 07/07/2021 Nas[address]astric tube is in place. The tip extends below the GE junction into the stomach antrum. Lung volumes are decreased. Mild elevation of the RIGHT hemidiaphragm with atelectasis. RIGHT diaphra gm is partially obscured. There is a small layering RIGHT pleural effusion. Cardiac size: Normal. Mediastinum/Aorta: Mild widening of the mediastinum is probably on the basis of positioning. No osseous abnormality seen. XR/XR chest 1V portable [id number] IMPRESSION: 1. Quality of this examination is suboptimal by body habitus. 2. Nasogastric tube has been inserted in good position. 3. Partial obscuration RIGHT diaphragm. Probably combination of atelectasis, s mall pleural effusion and/or pneumonia.
[2021-07-08] MEDS: LORazepam 2 mg/mL INJ 1 mL 0.5 MG IVP ×2 (11:16→18:23)
[2021-07-08] MEDS: pantoprazole 40 mg SDV IVP (11:16)
[2021-07-08] MEDS: lactulose oral liq 20 gm/30 mL UDC 30 GM PO ×3 (11:16→21:47)
[2021-07-08] MEDS: thiamine 100 mg Tablet PO (11:17)
--- NOTE | 2021-07-08 11:50 | PM.PN ---
Subjective Subjective: Zenaida awakens briefly but is obviously very confused. Denies any specific pain. She was not able to take the lactulose last night. Medications: Reviewed: Yes Vitals/I&O/Wt Last Vital Signs Temp 97.2 F L 07/08/21 04:00 Pulse 96 07/08/21 09:00 Resp 25 H 07/08/21 09:00 BP 103/61 07/08/21 09:00 Pulse Ox 94 07/08/21 08:00 07/07/21 07/08/21 07/08/21 22:59 06:59 14:59 Intake Total 1404.167 / 8156.219 8896 / 2947.084 Output Total 1050 / 1050 100 / 1150 Balance 354.167 / 468.438 1258 / 1797.084 Weight last 48 hrs Weight 126.824 kg Weight 117.934 kg Physical Exam Narrative: General exam is a jaundiced white female, confused but denies pain Neck is supple no lymphadenopathy or thyromegaly Cardiovascular regular rate and rhythm without murmur, no S3 or S4 Lungs clear to auscultation bilaterally. No wheezes or crackles. Abdomen is obese with positive bowel sounds. I am not for sure if there is any tenderness. Girth is too great to tell if there is significant ascites or organomegaly. exam demonstrates Jacobo Extremities 3-4+ edema, with a few blisters around the feet and ankles. Venous stasis changes. No cyanosis or clubbing Skin see findings above Neurologic: No focal deficits. Confused. Urinary Catheter Management: Jacobo: Cath Placed During This Visit: yes Reason for Continuing Indwelling Catheter: Accurate Measurement of Urinary Output in Critically Ill Patients Urinary Catheter Date of Insertion: 07/07/21 Urinary Catheter Time of Insertion: 09:05 Data : 07/08/21 04:09 07/08/21 04:09 Micro: Microbiology 07/07/21 09:40 Blood Culture - Preliminary Blood Staphylococcus aureus Staphylococcus epidermidis Streptococcus species 07/07/21 08:25 Blood Culture - Preliminary Blood A&P Assessment and plan (1) Acute encephalopathy: Patient with significant acute encephalopathy on admission. Ammonia level significantly high. She was not able to take p.o. yesterday so NG will be placed and lactulose and rifaximin started today. Another possibility is acute metabolic encephalopathy secondary to infection. Antibiotics were started yesterday. Continue to monitor for improvement Note CT head on admission no acute changes. Hold Neurontin Today have had to initiate some Ativan for agitation. Status: Acute (2) Hypokalemia: Supplementation initiated in the emergency department Slightly low today. Repeat supplementation. Status: Acute (3) Acute kidney injury: Fluids initiated in the emergency department. Continue currently. Although total body fluid high, cannot diurese in face of hepatic encephalopathy. Reduce fluids slightly. Monitor renal function closely. Add albumin today. If worsening renal function or hypotension consider midodrine Hold beta-fernanda Status: Acute (4) Leukocytosis: There is a possibility of SBP and/or other infection. This could also be secondary to pneumonia with chest x-ray changes right lung. Unfortunately the patient did have recent surgery at [facility] on the right lung secondary to effusion as well as scraping of the lung. I will request records. This could certainly have altered her chest x-ray appearance as well. Antibiotics as below. 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 Vancomycin will not be used as concern for vancomycin induced nephrotoxicity in the past. Blood culture with multiple staph and strep species 1 bottle likely contaminant Repeat Status: Acute (6) Transaminitis: Hepatitis panel negative This could be secondary to alcoholic hepatitis. Severity scoring not high enough to warrant steroids. Thiamine 100 mg daily Continue hydration Continue to follow LFT's Hold beta-fernanda Secondary to history of abdominal pain, worse in the last several weeks lipase was checked and normal. CT abd and pelvis showed fatty liver, small right pleural effusion, status post cholecystectomy Status: Acute (7) CAD (coronary artery disease): Currently on Plavix. Hold statin secondary to elevated LFTs Note that CK was normal. Status: Chronic Qualifiers: Associated angina: without angina Coronary Disease-Associated Artery/Lesion type: [place] artery [place] vs. transplanted heart: [place] heart Qualified Code(s): I25.10 - Atherosclerotic heart disease of [place] coronary artery without angina pectoris (8) Chronic obstructive pulmonary disease, unspecified: DuoNeb as needed Budesonide twice daily Status: Chronic Qualifiers: COPD type: chronic bronchitis Chronic bronchitis type: unspecified Qualified Code(s): J42 - Unspecified chronic bronchitis Plan Blisters lower extremities. This is likely secondary to edema. Antibiotics as noted. We will work on reducing edema once hepatic encephalopathy improved. Hematuria. Now has developed. Hold Plavix, aspirin, DVT dosing heparin. Flush as needed. Significant edema. Check echocardiogram. Venous duplex negative. Elevated TSH. Placed on 25 mcg of Synthroid. Recheck TSH as an outpatient, and adjust dosing further. Multiple other medical problems as outlined in past medical history Full code Heparin discontinued secondary to hematuria. Cannot put on SCDs secondary to significant blistering of lower extremities. Reevaluate for heparin if hematuria resolves. Protonix for GI prophylaxis Attestations Medical Necessity Statement*: Needs continued hospital stay secondary to hepatic encephalopathy, pneumonia requiring IV antibiotics Critical Care Time: The high probability of a clinically significant, sudden or life threatening deterioration of the patient's [cardiac, hepatic, GI, renal system(s) required my full and direct attention, intervention and personal management. The critical care time is as shown. This time is in addition to time spent performing any reported procedures but includes the following: [x] Data and vital sign review and interpretation [x] Patient assessment, examination and intervention [x] Documentation [x] Medication orders and management The high probability of a clinically significant, sudden or life threatening deterioration of the patient's [] system(s) required my full and direct attention, intervention and personal management. The critical care time is as shown. 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 transplanted heart: [place] heart Chronic obstructive pulmonary disease, unspecified J42 COPD type: chronic bronchitis Chronic bronchitis type: unspecified
[2021-07-08 12:37] LABS: Glucose Point of Care 98 mg/dL (70-110)
--- NOTE | 2021-07-08 18:31 | PC.NURSE ---
Urine has been right red this shift. Dr. Sheikh aware and placed eliquis and heparin in hold.
[2021-07-08] MEDS: piperacillin-tazobactam 3.375 GM in sodium chloride 0.9% (plus) 100 ML IV (18:57)
--- NOTE | 2021-07-08 19:45 | PC.NURSE ---
Dr. Lilly notified of pt's audible wheezing and weeping, agitation, thrashing in bed. Orders received, see MAR.
[2021-07-08] MEDS: LORazepam 2 mg/mL INJ 1 mL IVP ×2 (19:56→22:20)
--- NOTE | 2021-07-08 20:14 | PC.NURSE ---
Pt thrashing in bed, and has injured her arms hitting them against siderails. Pt does not appear to be aware of what she is doing. Pt is covered in bruising and skin tears over her entire body. Pt audilbly wheezing. Pt weeping from wounds, and blisters. Jacobo anchor placed on patient. Bright red urine noted in catheter bag.
--- NOTE | 2021-07-08 20:19 | PC.NURSE ---
Bilateral heels red and boggy. Unable to place heel protectors due to patient's agitation and excessive movement.
--- NOTE | 2021-07-08 20:23 | PC.NURSE ---
Pt has yellowing and edema of bilateral sclera.
[2021-07-08 20:47] LABS: Glucose Point of Care 93 mg/dL (70-110)
--- NOTE | 2021-07-08 20:59 | PC.NURSE ---
Pt having periods of resting quietly along with periods of flailing and moaning, improved from earlier assessment.
--- NOTE | 2021-07-08 21:42 | PC.NURSE ---
Pt now appears to be hallucinating at times, grasping into the air at things that are not present. Pt is also holding breath and baring down frequently, causing her to drop her oxygen saturations down as low 83% for short periods. Oxygen increased to 3L. Optifoam dressings placed on right leg wound and largest skin tear on right arm.
--- NOTE | 2021-07-08 21:56 | XR_ITS ---
WS: [id number] PORTABLE CHEST HISTORY: increased work of breathing COMPARISON: 07/08/2021, 07/07/2021 Nasogastric tube in good position with the tip terminating below the GE junction. Progression of pulmonary edema since the prior study. There is moderate edema and the RIGHT pleural e ffusion appears slightly increased in size. Obscuration of the RIGHT hemidiaphragm due to fluid and/o r atelectasis and pneumonia. No pneumothorax. Cardiac size: Mildly enlarged cardiac silhouette. Mediastinum/Aorta: Mild widening of the mediastinum is probably due to the fluid overload. No osseous abnormality seen. XR/XR chest 1V portable [id number] IMPRESSION: 1. Interval development pulmonary edema. 2. Slight increase in size of a small RIGHT pleural effusion. 3. Nasogastric tube in good position.
--- NOTE | 2021-07-08 21:58 | PC.NURSE ---
Dr. Lilly notified of pt's decreased oxygen saturation, increased respiratory rate, bilateral crackles, audible wheezing, and urine output.
[2021-07-08] MEDS: FUROsemide 10 mg/mL SDV 4mL 40 MG IVP (22:20)
[2021-07-08 22:27] LABS: ABG PH Result 7.45 (7.35-7.45); Alveolar-Arterial Oxygen Gradi 3.6 mmHg (5-10); Arterial Blood Gas Hematocrit 41.3 % (37-47); Base Excess ABG 3.1 mmol/L (-2.0-2.0); Blood Gas Allen Test Pos; Blood Gas Operator Identificat JB; Blood Gas Sample Site Radial, right; Blood Gas Sample Type Arterial; Carboxyhemoglobin 1.4 %THgb (0.4-20.1); HCO3 ABG 27.2 mmol/L (22-26); HGB O2 Sat 94.5 % (95-100); Ionized Calcium Level - ABG 1.2 mmol/L (1.1-1.4); Methemoglobin 0.4 % (0.4-1.5); Oxygen Device NC; Oxygen Saturation ABG 96.2; PO2 ABG 74.1 mmHg (80.0-100.0); Potassium Level - ABG 3.3 mmol/L (3.5-5.0); Total Hemoglobin 13.5 g/dL (12-16)
--- NOTE | 2021-07-08 22:46 | PC.NURSE ---
Pt has regular rhythm, but I am unable to see definite P waves due to artifact.
--- NOTE | 2021-07-08 22:59 | PC.NURSE ---
IV flushed with 20 mls of sterile saline. 100 mls returned.
--- NOTE | 2021-07-08 23:01 | PC.NURSE ---
Pt continuously moaning loudly. She reponds to voice by making a groan that possibly sounds like a poorly articulated what.
--- NOTE | 2021-07-08 23:02 | PC.NURSE ---
Dr. Lilly notified of pt's K+. Order received, see MAR.
[2021-07-08] MEDS: potassium chloride oral liq 20 mEq/15 mL UDC 40 MEQ PO (23:31)
[2021-07-09] VITALS (48 sets, daily range): BP systolic 84–159; BP diastolic 49–116; PULSE 84–103; RESP 18–34; TEMP 36.5–37.5; O2SAT 89–95
--- NOTE | 2021-07-09 00:30 | PC.NURSE ---
Dr. Lilly contacted, I have requested that he come to examine patient.
--- NOTE | 2021-07-09 00:40 | XRR_ITS ---
PROCEDURE INFORMATION: Exam: XR Abdomen Exam date and time: 07/09/2021 1:01 AM Age: 61 years old Clinical indication: Bloating; Prior surgery; Surgery date: 6+ months; Surgery type: Gb. Csection. Hysterectomy. Gastric bypass. Bilat hips. ; Patient HX: New onset of abd distention. Ng tube in place. ; Additional info: Abdominal distention TECHNIQUE: Imaging protocol: XR of the abdomen. Views: Frontal supine view of the abdomen. 1 View. COMPARISON: CT abdomen pelvis con [id number] 07/07/2021 1:36 PM FINDINGS: Tubes, catheters and devices: NG tube in place likely within gastric pouch. Gastrointestinal tract: Marked diffuse colonic distention. Gas and stool demonstrated within the distal colon and rectum. No significant or disproportionate small bowel distention. Bones/joints: Previous bilateral hip arthroplasty with metallic hardware in place. Soft tissues: Very large body habitus. XR/XR KUB portable [id number] IMPRESSION: Diffuse colonic ileus.
[2021-07-09] MEDS: LORazepam 2 mg/mL INJ 1 mL IVP (00:51)
--- NOTE | 2021-07-09 00:54 | PC.NURSE ---
Upon examination of patient at 0010, she now appears more jaundiced. Her knees and bottoms of feet appear mottled. She has large areas of pratt/purple bruising on calves. Skin appears to be sloughing off of her abdomen. She has a large skin tear on her right dixon that is new. She has bruising on her left breast. Pt is moaning loudly and over and over again. Her abdomen is now much larger and firm. I cannot appreciate bowel sounds due to pt's moaning and distention. Pt is now more tachypneic, tachycardic, and hypertensive.
--- NOTE | 2021-07-09 01:08 | ECG_ITS ---
[facility] Test Date: 2021-07-09 Pat Name: Zenaida Madsen Department: Room: ICU12 Gender: Female Email Deployment Specialist: : 1960 Requested By: Femi Lilly Order Number: [id number] Korey MD: Aimee Pelaez M.D. Measurements Intervals [place] Rate: 100 P: [place]: QRS: 48 QRSD: 89 T: 207 QT: 362 QTc: 467 Interpretive Statements Sinus tachycardia with PAC LOW QRS VOLTAGE IN PRECORDIAL LEADS [QRS DEFLECTION < 1.0 mV IN CHEST LEADS] ABNORMAL QRS-T ANGLE [QRS-T AXIS DIFFERENCE > 60] Compared to ECG 07/07/2021 14:41:10 Low QRS voltage now present Sinus rhythm no longer present T-wave abnormality no longer present Electronically Signed On 07-10-2021 23:48:57 CDT by Aimee Pelaez M.D. [id number]
--- NOTE | 2021-07-09 01:15 | PC.NURSE ---
Dr. Lilly at bedside at 0039. Changes in patient's conditions reported to Dr. Lilly, including skin changes, mottling, abdominal distention, abdominal firmness. Orders received for a stat KUB.
[2021-07-09] MEDS: FUROsemide 10 mg/mL SDV 2mL 20 MG IVP (01:33)
--- NOTE | 2021-07-09 01:41 | PC.NURSE ---
Dr. Lilly notified that pt is in atrial fib.
--- NOTE | 2021-07-09 01:46 | PC.NURSE ---
Dr. Lilly notified that pt's daughters are not listed on chart, but dialysis social worker were to be contacted yesterday to have this amended. He is going to call daughter, Susy.
[2021-07-09 01:48] LABS: ABG PH Result 7.44 (7.35-7.45); Alveolar-Arterial Oxygen Gradi 4.3 mmHg (5-10); Arterial Blood Gas Hematocrit 41.4 % (37-47); Blood Gas Allen Test Pos; Blood Gas Operator Identificat JB; Blood Gas Sample Site Radial, right; Blood Gas Sample Type Arterial; Carboxyhemoglobin 1.6 %THgb (0.4-20.1); HCO3 ABG 27.5 mmol/L (22-26); HGB O2 Sat 90.8 % (95-100); Ionized Calcium Level - ABG 1.2 mmol/L (1.1-1.4); Methemoglobin 0.9 % (0.4-1.5); Oxygen Device NC; Oxygen Saturation ABG 93.1; PO2 ABG 66.2 mmHg (80.0-100.0); Potassium Level - ABG 3.4 mmol/L (3.5-5.0); Total Hemoglobin 13.5 g/dL (12-16)
--- NOTE | 2021-07-09 01:49 | PC.NURSE ---
Nursing is to notify Dr. Lilly if heart rate exceeds 115 bpm.
[2021-07-09 01:50] LABS: Basophils % 0.3 %; Eosinophils # 0.1 10^3/uL (0.0-0.8); Eosinophils % 0.5 %; Hematocrit 39.8 % (37.0-47.0); Hemoglobin 13.6 g/dL (11.5-15.3); Lymphocytes # 1.7 10^3/uL (0.8-4.8); Lymphocytes % 10.8 %; Mean Corpuscular HGB Conc 34.2 g/dL (30.0-36.0); Mean Corpuscular Hemoglobin 31.9 pg (28.0-34.0); Mean Corpuscular Volume 93.4 fl (81-99); Monocytes # 1.9 10^3/uL (0.2-0.9); Monocytes % 12.1 %; Neutrophils # 11.94 10^3/uL (1.8-7.7); Neutrophils % 75.8 %; Nucleated Red Blood Cells % 0.1 %; Platelet Count 174 10^3/cmm (130-400); Red Blood Count 4.26 10^6/uL (4.1-5.3); Red Cell Distribution Width 20.5 % (12.1-15.1); White Blood Count 15.8 10^3/uL (4.0-10.0)
[2021-07-09 01:51] LABS: INR 1.51 (0.8-1.2)
[2021-07-09 01:52] LABS: Partial Thromboplastin Time 36.8 SECONDS (23.9-36.7)
[2021-07-09 02:00] LABS: Lactate (Lactic Acid level) 3.4 mmol/L (0.5-2.2); Troponin(5th) Baseline 22 ng/L (0-10)
[2021-07-09 02:07] LABS: Alanine Aminotransferase 23 U/L (0-33); Albumin Level 3.2 g/dL (3.5-5.2); Alkaline Phosphatase 205 IU/L (35-105); Anion Gap 18.7 (5-19); Aspartate Amino Transferase 76 U/L (0-32); Blood Urea Nitrogen 14 mg/dL (8-23); Calcium 9.5 mg/dL (8.5-10.5); Carbon Dioxide 24 mmol/L (22-29); Chloride 100 mmol/L (98-107); Creatinine Clr Calc Pharmacy 69.9411; Globulin 3.7 g/dL (1.3-4.6); Glomerular Filtration Rate 50.3 mL/min (90-130); Glucose 108 mg/dL (65-115); Magnesium 2.1 mg/dL (1.7-2.3); NT Pro B Type Natriuretic Pept 2600 pg/mL (0-125); Osmolality Calculated 289 mOsm/kg (285-295); Phosphorus 3.1 mg/dL (2.5-4.5); Potassium 3.7 mmol/L (3.5-5.1); Sodium 139 mmol/L (136-145); Total Bilirubin 6.3 mg/dL (0.15-1.2); Total Protein 6.9 g/dL (6.6-8.7)
--- NOTE | 2021-07-09 02:08 | PC.NURSE ---
Pt continues to moan loudly, ativan has not helped with agitation. Pain medication requested from Dr. Lilly at 0158, see APR.
[2021-07-09] MEDS: morphine 4 mg/mL SDV 1 mL 2 MG IVP ×2 (02:16→06:06)
[2021-07-09] MEDS: piperacillin-tazobactam 3.375 GM in sodium chloride 0.9% (plus) 100 ML IV ×3 (02:17→17:51)
[2021-07-09 02:24] LABS: Ammonia 92 umol/L (11-51)
--- NOTE | 2021-07-09 02:32 | PC.NURSE ---
Pt's feet no longer appear mottled. They are bright red in color with cap refill less than 3 seconds. Knees continue to be mottled and cap refill on knee caps is greater than 3 seconds. Pt's arms are now completely covered in dark red bruising.
[2021-07-09] MEDS: linezolid premix 600 MG/300 ML PREMIX 300 MG IV ×2 (03:00→15:32)
--- NOTE | 2021-07-09 03:08 | ECG_ITS ---
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 Measurements Intervals [place] Rate: 100 P: [place]: QRS: 54 QRSD: 89 T: 215 QT: 369 QTc: 476 Interpretive Statements ATRIAL FIBRILLATION WITH RAPID VENTRICULAR RESPONSE LOW QRS VOLTAGE IN PRECORDIAL LEADS [QRS DEFLECTION < 1.0 mV IN CHEST LEADS] ST DEVIATION AND MODERATE T-WAVE ABNORMALITY, CONSIDER INFERIOR ISCHEMIA [-0.1+ mV T-WAVE IN II/aVF] Compared to ECG 07/09/2021 01:37:00 T-wave abnormality now present Possible ischemia now present Electronically Signed On 07-11-2021 0:08:41 CDT by Aimee Pelaez M.D. [id number]
--- NOTE | 2021-07-09 03:12 | PC.NURSE ---
Pt no longer having audible wheezing. Urine now pink with small clots.
--- NOTE | 2021-07-09 03:58 | PC.NURSE ---
Central line window dressing used to more effectively secure IV.
--- NOTE | 2021-07-09 05:30 | PC.NURSE ---
Stool is very dry and otilia like. Small chunks of stool noted.
--- NOTE | 2021-07-09 05:33 | PC.NURSE ---
2 lipscomb stat locks used.
[2021-07-09] MEDS: levothyroxine 25 mcg Tablet PO (06:06)
--- NOTE | 2021-07-09 06:16 | PC.NURSE ---
Pt continues to moan constantly, more so when touched or spoken to. feet remain dusky, without mottling. Knees appear mottled and have delayed cap refill. Dark bluish spots on legs are significantly darker than beginning of the shift. Arms are almost completely covered in dark purple bruising.
--- NOTE | 2021-07-09 07:08 | ECG_ITS ---
[facility] Test Date: 2021-07-09 Pat Name: Zenaida Madsen Department: Room: ICU12 Gender: Female Psychologist Industrial Organizational: : 1960 Requested By: Femi Lilly Order Number: [id number] Korey MD: Monik Joyce M.D. Measurements Intervals [place] Rate: 91 P: 52 OR: 147 QRS: 37 QRSD: 91 T: 203 QT: 407 QTc: 503 Interpretive Statements SINUS RHYTHM WITH OCCASIONAL SUPRAVENTRICULAR PREMATURE COMPLEXES LOW QRS VOLTAGE IN PRECORDIAL LEADS [QRS DEFLECTION < 1.0 mV IN CHEST LEADS] NONSPECIFIC ST & T-WAVE ABNORMALITY Compared to ECG 07/09/2021 04:18:32 Atrial fibrillation no longer present Possible ischemia no longer present T-wave abnormality still present Electronically Signed On 07-09-2021 22:55:10 CDT by Monik Joyce M.D. [id number]
[2021-07-09 07:30] LABS: Troponin 5 2HR 21.17 ng/L (0-10)
[2021-07-09 07:33] LABS: Troponin 5 2HR Delta -0.83 ABS# (0-10)
[2021-07-09 07:46] LABS: Glucose Point of Care 96 mg/dL (70-110)
[2021-07-09] MEDS: ipratropium-albuterol 3 mL Neb INHALATION ×2 (08:17→20:34)
[2021-07-09] MEDS: budesonide 0.5 mg/2 mL Neb INHALATION ×2 (08:17→20:34)
--- NOTE | 2021-07-09 08:33 | PM.PN ---
Subjective Subjective: Patient got more agitated last night. Required some Ativan IV. Fluids were stopped as she was getting more swollen and requiring more oxygen. Lasix was given. She has been sleeping quite heavily since the Ativan was given. Medications: Reviewed: Yes Vitals/I&O/Wt Last Vital Signs Temp 99.5 F 07/09/21 04:29 Pulse 92 07/09/21 08:24 Resp 26 H 07/09/21 08:00 BP 106/62 07/09/21 06:15 Pulse Ox 93 07/09/21 08:00 07/08/21 07/09/21 07/09/21 22:59 06:59 14:59 Intake Total 1675 / 1775 570 / 2345 0 / 0 Output Total 400 / 400 1350 / 1750 Balance 1275 / 1375 -780 / 595 0 / 0 Weight last 48 hrs Weight 114.305 kg Weight 126.824 kg Weight 117.934 kg Physical Exam Narrative: General exam is a jaundiced white female, grunts when blood pressure cuff auto inflates. Neck is supple no lymphadenopathy or thyromegaly Cardiovascular regular rate and rhythm without murmur, no S3 or S4 Lungs clear to auscultation bilaterally. No wheezes or crackles. Abdomen is obese with positive bowel sounds. Does not appear distended currently. exam demonstrates Jacobo Extremities 2+ edema, with a few blisters around the feet and ankles. Venous stasis changes. No cyanosis or clubbing Skin see findings above Neurologic: No focal deficits but sleepy currently. Urinary Catheter Management: Jacobo: Cath Placed During This Visit: yes Reason for Continuing Indwelling Catheter: Accurate Measurement of Urinary Output in Critically Ill Patients Urinary Catheter Date of Insertion: 07/07/21 Urinary Catheter Time of Insertion: 09:05 Data : 07/09/21 01:28 07/09/21 01:28 Micro: Microbiology 07/07/21 09:40 Blood Culture - Preliminary Blood Staphylococcus aureus Staphylococcus epidermidis Streptococcus species 07/07/21 08:25 Blood Culture - Preliminary Blood 07/07/21 16:15 MRSA Culture - Final Nose A&P Assessment and plan (1) Acute encephalopathy: Patient with significant acute encephalopathy on admission. Ammonia level significantly high. She was not able to take p.o. yesterday so NG placed and lactulose and rifaximin started. With concern of ileus lactulose will be discontinued. Another possibility is acute metabolic encephalopathy secondary to infection. She is currently on Zosyn, linezolid. Blood cultures are growing gram-positive cocci in clusters. Repeat cultures today. Continue to monitor for improvement Note CT head on admission no acute changes. Hold Neurontin Has intermittently required Ativan. She appears significantly sleepy currently and therefore will hold. Status: Acute (2) Hypokalemia: Stable today at 3.7 Status: Acute (3) Acute kidney injury: Fluids discontinued yesterday secondary to fluid overload. Lasix was given. Creatinine stable this morning. Continue to monitor renal function closely. Continue to hold beta-fernanda. Status: Acute (4) Leukocytosis: There is a possibility of SBP and/or other infection. This could also be secondary to pneumonia with chest x-ray changes right lung. Unfortunately the patient did have recent surgery at [facility] on the right lung secondary to effusion as well as scraping of the lung. Records have been requested. Continue linezolid, Zosyn Status: Acute (5) Pneumonia: Sputum culture, MRSA PCR positive as expected Zoisyn, linezolid IV Noted patient has a history of MRSA pneumonia within the last year or so. Vancomycin will not be used as concern for vancomycin induced nephrotoxicity in the past. Blood culture now +3 bottles Repeat Status: Acute (6) Transaminitis: Hepatitis panel negative This could be secondary to alcoholic hepatitis. Severity scoring not high enough to warrant steroids. Thiamine 100 mg daily Continue to follow LFT's. Bilirubin continues to increase. Hold beta-fernanda Secondary to history of abdominal pain, worse in the last several weeks lipase was checked and normal. CT abd and pelvis showed fatty liver, small right pleural effusion, status post cholecystectomy Status: Acute (7) CAD (coronary artery disease): Plavix held secondary to hematuria. Hold statin secondary to elevated LFTs Note that CK was normal. Status: Chronic Qualifiers: Coronary Disease-Associated Artery/Lesion type: [place] artery [place] vs. transplanted heart: [place] heart Associated angina: without angina Qualified Code(s): I25.10 - Atherosclerotic heart disease of [place] coronary artery without angina pectoris (8) Chronic obstructive pulmonary disease, unspecified: DuoNeb as needed Budesonide twice daily Status: Chronic Qualifiers: COPD type: chronic bronchitis Chronic bronchitis type: unspecified Qualified Code(s): J42 - Unspecified chronic bronchitis Plan Hepatic encephalopathy, see above Bacteremia. See notations above Blisters lower extremities. This is likely secondary to edema, possibly sepsis Antibiotics as noted. We will work on reducing edema once hepatic encephalopathy improved. Hematuria. Now has developed. Hold Plavix, aspirin, DVT dosing heparin. Flush as needed. Significant edema. Echocardiogram of poor quality but 70 to 75% EF. Venous duplex negative. Elevated TSH. Placed on 25 mcg of Synthroid. Recheck TSH as an outpatient, and adjust dosing further. Multiple other medical problems as outlined in past medical history Full code Heparin discontinued secondary to hematuria. Cannot put on SCDs secondary to significant blistering of lower extremities. Reevaluate for heparin if hematuria resolves. Protonix for GI prophylaxis Attestations Medical Necessity Statement*: Needs continued hospital stay secondary to IV antibiotics needed for sepsis. Critical Care Time: The high probability of a clinically significant, sudden or life threatening deterioration of the patient's [GI, renal, cardiac system(s) required my full and direct attention, intervention and personal management. The critical care time is as shown. 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 transplanted heart: [place] heart Associated angina: without angina Chronic obstructive pulmonary disease, unspecified J42 COPD type: chronic bronchitis Chronic bronchitis type: unspecified
[2021-07-09] MEDS: pantoprazole 40 mg SDV IVP (09:34)
[2021-07-09] MEDS: thiamine 100 mg Tablet PO (09:35)
[2021-07-09 11:48] LABS: Glucose Point of Care 105 mg/dL (70-110)
[2021-07-09] MEDS: lactulose oral liq 20 gm/30 mL UDC 200 GM PR (13:12)
[2021-07-09 13:59] LABS: Troponin 5 6HR 18.88 ng/L (0-10)
[2021-07-09 14:00] LABS: Troponin 5 6HR Delta -3.12 ng/L (0-12)
[2021-07-09] MEDS: lactulose oral liq 20 gm/30 mL UDC 30 GM NG-TUBE (15:32)
[2021-07-09] MEDS: heparin 5,000 unit/mL INJ 1 mL 5000 UNIT SUBCUT (15:32)
--- NOTE | 2021-07-09 16:23 | PC.NUTR ---
If medically appropriate, recommend consideration of PPN with peripheral administration starting at 13 mls/hr and increasing by 10 mls Q8H til infusing at 83 mls/hr, with standard electrolytes and multivitamins 10 mls/day plus fat emulsion of 25 grams/[address] assessment.
[2021-07-09 18:08] LABS: Glucose Point of Care 111 mg/dL (70-110)
--- NOTE | 2021-07-09 18:50 | PC.NURSE ---
Decision to intubate Dr. Abel made decision to intubate patient for airway protection. Family and life partner called and notified. Gave telephone consent.
[2021-07-09] MEDS: dexmedeTOMIDine 0.9 % NaCL 400 MCG/100 ML PREMIX IV (19:50)
--- NOTE | 2021-07-09 19:58 | P.CONIM_ITS ---
Providers/Reason For Consult Consulting Physician/Specialty*: Kun Abel MD/ Pulmonary Critical Care Reason for Consult*: Altered mental status Requesting Physician: Matias Sheikh MD Attending Physician: Matias Sheikh MD Primary Care Provider: ISABELLE Browne History of Present Illness History of Present Illness Zenaida Madsen is a 61 year old female with past medical history of gastric bypass 2000, progressive anemia, COPD on 2 L nasal cannula, chronic smoker, chronic alcoholic-alcohol abuse, hepatic steatosis with hepatomegaly, morbid obesity BMI 43, hypertension, CAD s/p 3 stents, admitted to ICU on 07/07/2021 for worsening confusion for 1 week. She drinks > 3 drinks per day for several years and did not drink for 1 week prior to hospitalization due to confusion. On admission patient ammonia level was 104-consistent with hepatic encephalopathy-initiated on rifaximin and lactulose. There is a concern if encephalopathy secondary to sepsis from her blisters on bilateral lower extremities. She was started on Zosyn and linezolid (has history of vancomycin induced nephrotoxicity) -admission blood cultures positive for staph aureus, staph epidermidis, strep viridans. Previously had history of MRSA in sputum 09/17/2020 & this visit MRSA nares positive. Echocardiogram 07/08/2021 reported technically difficult study with no parasternal windows, normal LV size and systolic function, LVEF 70 to 75% and no diagnostic regional wall abnormality, no change compared to 03/06/2020. Patient did not take oral lactulose and her ammonia went up to 124-and became more agitated yesterday night requiring Ativan and since then she has been even more drowsy. She is saturating 93% on 4 L nasal cannula and ABG showed 7.4 4/41/66/27/93% saturation on 3 L nasal cannula. Pulmonary critical care consulted for altered mental status secondary to hepatic encephalopathy/septic encephalopathy Today morning abdomen appeared distended and x-ray KUB showed diffuse colonic ileus. NG suction yielded 170 cc bilious fluid. Switch lactulose from p.o. to IN and she started having good bowel movements by evening. Had a urine output 1750 cc last 24 hours and 500 cc in 2 days morning shift. Patient started to move her arms by evening and is still able to maintain her airway. Labs and imaging reviewed Noted JESIKA-electrolytes within normal limits LFTs-elevated AST and total bilirubin 6.3 ; direct bilirubin 3.2, ammonia down to 92 ; nondiagnostic evaluation of right upper quadrant ultrasound due to body habitus ; CT abdomen pelvis suggestive of hepatic steatosis/acute hepatitis non- small amount of perihepatic fluid (decreased compared to 06/23/[address] )- s/p cholecystectomy and no bile duct dilation Lactic acid 3.4-likely secondary to liver dysfunction BNP 2600; Blood cultures 07/07/2021-showed staph RES, staff epidermidis staph viridans group; MRSA nares positive She had COVID-19 pneumonia in March 2020 discharged with 2 L nasal cannula, later was treated with MRSA pneumonia in August 2020 and gradually improved. Again in October 2020 she was started on clindamycin for persistent right pleural effusion and developed nausea and vomiting and was seen in ER visit for generalized malaise nausea, vomiting and diarrhea, cough and chest discomfort and imaging showed persistent moderate right pleural effusion and consolidation in right middle and lower lobes consistent with atelectasis or pneumonia. Her antibiotic was changed from clindamycin to Bactrim and was sent to pulmonary clinic. I have seen her in pulmonary clinic in November 2020 and she had bi lateral leg swelling and dyspnea and as this was chronic right pleural effusion and bedside ultrasound showed right pleural effusion predominantly in posterior area but there was no good pocket to tap partly due to significant obesity . Given worsening bilateral leg swelling and history of 3 cardiac stents temporarily increased her Lasix to 40 Mg daily and recommended to follow- up in 3 weeks and plan was to Recheck with ultrasound.However she went to see the another golf caddie in [place] For second opinion in January. She underwent thoracentesis There at [facility] in March 2021 and was referred to CT surgery at [facility] for VATS. She was admitted on 04/10/2021 for difficulty breathing and hypotension, treated with broad-spectrum antibiotics and on 04/15/2021 she underwent right thoracoscopy with lysis of adhesions and decortication and tube thoracostomy-evacuated 350 to 400 mL clear fluid and limited decortication was accomplished over the areas that were adhered with excellent reexpansion of the lung . Chest tubes were removed on 04/21/2021 and she was discharged home on 04/22/2021. We do not have any culture or biopsy results. During this admission-Abdomen pelvis CT finding 2022 also showed small right pleural effusion with focal consolidation at the lung bases probably rounded atelectasis. Review of Systems General: Reports: ROS unobtainable due to mental status Medications/Allergies Home Medications Medication Instructions Recorded Confirmed Last Taken Type lace up ankle brace #1 ea 09/28/19 07/07/21 Unknown Rx Wheelchair #1 each 11/16/19 07/07/21 Unknown Rx inogen system #1 ea 07/03/20 07/07/21 Unknown Rx albuterol sulfate 2.5 mg (3 mL) INHALATION Q4H PRN 01/21/21 07/07/21 Unknown Rx #75 ml albuterol sulfate 90 mcg/actuation 1 puff INHALATION Q6H PRN #8.5 g 01/21/21 07/07/21 Unknown Rx aerosol inhaler (Ventolin HFA) hydroxyzine HCl 50 mg tablet 50 mg PO BID PRN #60 tab 01/21/21 07/07/21 Unknown Rx rosuvastatin 40 mg tablet 40 mg PO BEDTIME@2200 #30 tab 01/21/21 07/07/21 Unknown Rx umeclidinium 62.5 mcg/actuation 1 inh INHALATION DAILY #30 ea 01/21/21 07/07/21 Unknown Rx blister powder for inhalation (Incruse Ellipta) cyclobenzaprine 10 mg tablet 10 mg PO TID PRN #90 tab 05/06/21 07/07/21 Unknown Rx honey 100 % topical paste 1 applic TOPICAL BID #103 ml 05/06/21 07/07/21 Unknown Rx (MediHoney (honey)) folic acid 1 mg tablet 1 mg PO DAILY 05/12/21 07/07/21 Unknown History CPAP machine and supplies #1 ea 06/05/21 07/07/21 Unknown Rx esomeprazole magnesium 20 mg 20 mg PO DAILY #30 cap 06/05/21 07/07/21 Unknown Rx capsule,delayed release (Nexium) ondansetron 4 mg disintegrating 4 mg PO TID PRN tab 06/05/21 07/07/21 Unknown History tablet carvedilol 25 mg tablet 12.5 mg PO BID 06/23/21 07/07/21 Unknown History furosemide 20 mg tablet 20 mg PO DAILY 06/23/21 07/07/21 Unknown History promethazine 25 mg tablet 25 mg PO Q6H PRN #20 tab 06/23/21 07/07/21 Unknown Rx sucralfate 1 gram tablet 1 g PO QID 06/23/21 07/07/21 Unknown History potassium chloride 20 mEq 20 meq PO DAILY #30 tab 07/01/21 07/07/21 Unknown Rx tablet,extended release clopidogrel 75 mg tablet 75 mg PO DAILY 07/07/21 07/07/21 Unknown History gabapentin 300 mg capsule 300 mg PO TID 07/07/21 07/07/21 Unknown History tramadol 50 mg tablet 50 mg PO Q4H PRN 07/07/21 07/07/21 Unknown History bupropion HCl 150 mg tablet,12 hr 150 mg PO Q12H #60 tab 07/08/21 Unknown Rx sustained-release (Wellbutrin SR) fluoxetine 40 mg capsule (Prozac) 40 mg PO BID #60 cap 07/08/21 Unknown Rx Allergies Allergy/AdvReac Type Severity Reaction Status Date / Time clindamycin Allergy uncontrollable Verified 06/19/21 13:08 vomiting vancomycin AdvReac Severe Unknown Verified 07/07/21 13:05 ciprofloxacin AdvReac Unknown ADR-Swelling Verified 06/19/21 13:08 of the Eye doxycycline AdvReac Unknown ADR-Vomitin Verified 06/19/21 13:08 g furosemide AdvReac Unknown Verified 06/19/21 13:08 Current Medications Generic Name Dose Route Start Last Admin Trade Name Freq PRN Reason Stop Dose Admin Albuterol/Ipratropium 3 ml 07/07/21 14:44 07/09/21 08:17 Ipratropium-Albuterol 3 Ml Neb INHALATION 3 ml Q6H PRN Administration SHORTNESS OF BREATH Budesonide 0.5 mg 07/07/21 20:00 07/09/21 08:17 Budesonide 0.5 Mg/2 Ml Neb INHALATION 0.5 mg BID.RESPIRATORY DANYEL Administration Heparin Sodium (Porcine) 5,000 unit 07/09/21 14:45 07/09/21 15:32 Heparin 5,000 Unit/Ml Inj 1 Ml SUBCUT 5,000 unit Q12H DANYEL Administration Linezolid 600 mg in 300 mls @ 300 mls/hr 07/07/21 14:44 07/09/21 17:32 Zyvox Premix IV Infused Q12H DANYEL Infusion Protocol Piperacillin Sod/Tazobactam 100 mls @ 25 mls/hr 07/08/21 18:30 07/09/21 17:51 Sod 3.375 gm/ Sodium Chloride IV 12.5 mls/hr Q8H DAYNEL Administration Protocol Albumin Human 25 gm in 100 mls @ 60 mls/hr 07/09/21 10:30 07/09/21 19:32 Albumin IV Infused Q8H DANYEL Infusion dexmedeTOMIDine 0.9 % NaCL 400 mcg in 100 mls @ 0 mls/hr 07/09/21 19:45 07/09/21 19:50 Precedex IV 0.1 mcg/kg/hr .Q0M DANYEL 2.86 mls/hr Administration Protocol Per Protocol Levothyroxine Sodium 25 mcg 07/08/21 06:00 07/09/21 06:06 Levothyroxine 25 Mcg Tablet PO 25 mcg QAM DANYEL Administration Morphine Sulfate 2 mg 07/09/21 01:59 07/09/21 06:06 Morphine 4 Mg/Ml Sdv 1 Ml IVP 2 mg Q4H PRN Administration PAIN Pantoprazole Sodium 40 mg 07/08/21 09:00 07/09/21 09:34 Pantoprazole 40 Mg Sdv IVP 40 mg DAILY DANYEL Administration Rifaximin 550 mg 07/07/21 18:00 07/09/21 17:51 Rifaximin 550 Mg Tablet PO 550 mg BID DANYEL Administration Protocol Thiamine Mononitrate 100 mg 07/08/21 09:00 07/09/21 09:35 Thiamine 100 Mg Tablet PO 100 mg DAILY DANYEL Administration PFSH Acute 2 PFSH: Medical History Alcohol abuse Anxiety and depression CAD (coronary artery disease) has 2 stents Chronic obstructive pulmonary disease, unspecified Cigarette smoker COVID-19 (03/05/20) Essential (primary) hypertension Hepatic steatosis with hepatomegaly History of echocardiogram (03/06/20) Estimated EF 70%, normal diastolic function, normal pulmonary artery pressure, no valvular abnormality noted Intervertebral disc disorder with radiculopathy of lumbar region Low serum iron Mixed hyperlipidemia Morbid obesity BMI ~45 kg/m2 SVETLANA (obstructive sleep apnea) Osteoarthritis, chronic Personal history of nicotine dependence Slow transit constipation Urinary incontinence in female Vancomycin-induced nephrotoxicity (~06/2019) Vitamin D deficiency Surgical History H/O esophagogastroduodenoscopy (05/04/19) Status post gastric bypass with grade B esophagitis History of 2 sections History of cholecystectomy History of coronary artery stent placement History of gastric bypass History of hysterectomy History of left hip replacement History of right hip replacement S/P foot surgery, right 1) open trimalleolar fracture 05/2019 2) gangrene at operative site 06/2019 Status post colonoscopy with polypectomy (05/04/19) Descending colon polyp Family History Grandmother Hypertension Stroke Mother Hypertension Stroke Family/Other CAD (coronary artery disease) Denies family history of Diabetes Dementia Chronic kidney disease (CKD) Suicide Anesthesia complication Bleeding disorder Lung disease Cancer Social History Smoking and tobacco status: current every day smoker cigarettes Packs smoked per day: 0.5 Second hand smoke exposure: No Smoking risk assessment/counseling performed?: Yes Alcohol intake: current Alcohol intake frequency: 3 or more drinks per day Alcohol type: hard liquor Desire information about alcohol rehabilitation?: No Last alcohol use date: 06/16/19 Desire information about substance/drug rehabilitation?: No Counseling given: No Adopted: No Caregiver/support person: No Lives independently: Yes Household members: significant other Housing: House Marital status: Single Marital status details: Life partner Donny Nolen [phone] Number of children: 3 service: No Current occupational status: unemployed History of recent travel: No Current gender identity: Female Vitals/I&O/Wt Last Vital Signs Temp 98.2 F 07/09/21 09:00 Pulse 90 07/09/21 19:00 Resp 25 H 07/09/21 19:00 BP 111/66 07/09/21 19:00 Pulse Ox 91 07/09/21 19:00 07/09/21 07/09/21 07/09/21 06:59 14:59 22:59 Intake Total 570 / 2345 291.25 / 291.25 400 / 691.25 Output Total 1350 / 1750 500 / 500 Balance -780 / 595 291.25 / 291.25 -100 / 191.25 Weight last 48 hrs Weight 252 lb Weight 279 lb 9.6 oz Physical Exam Narrative: General: Drowsy, not following commands HEENT: J yellowish discoloration of bilateral sclera, PERRL, mmm, Neck: supple, no meningismus Heme: no cervical LAP Pulmonary: Reduced breath sounds on right side and bibasilar crackles Cardiovascular: rrr, nl s1s2, no mrg Abdomen: soft, nt, distended, no r/g, sluggish bs+ Extremities: pulses +, 2+ edema, blisters around feet and ankles changes consistent with chronic venous insufficiency : no CVA tenderness Skin: intact, no rash MSK: no back or neck pain Neurologic: grossly intact Urinary Catheter Management: Jacobo: Cath Placed During This Visit: yes Reason for Continuing Indwelling Catheter: Accurate Measurement of Urinary Output in Critically Ill Patients Urinary Catheter Date of Insertion: 07/07/21 Urinary Catheter Time of Insertion: 09:05 Data : 07/09/21 01:28 07/09/21 01:28 Other Labs: Radiology Impressions Head CT 07/07/21 08:05 IMPRESSION: 1. No acute intracranial hemorrhage or edema. 2. Stable noncontrast head CT. Ankle X-Ray 07/07/21 08:20 IMPRESSION: Posttraumatic (remote) osteoarthritis. No acute abnormality identified. Foot X-Ray 07/07/21 08:20 IMPRESSION: Large soft tissue mass on the dorsum of the foot of unknown etiology. Osteoarthritis. No acute abnormality identified. Gallbladder Ultrasound 07/07/21 09:35 IMPRESSION: Nondiagnostic evaluation secondary to body habitus. Abdomen/Pelvis CT 07/07/21 13:19 IMPRESSION: 1. Severe low attenuation throughout the liver most likely due to hepatic s teatosis as similar findings may be due to acute hepatitis. 2. Small amount of perihepatic fluid has decreased in diameter since 06/23/2021 from 3.1 to 1.7 cm in diameter. 3. Small RIGHT pleural effusion with focal consolidation at the lung bases which is probably rounded atelectasis. 4. Status post cholecystectomy. No bile duct dilatation. 5. Soft tissue anasarca. Chest X-Ray 07/08/21 21:56 IMPRESSION: 1. Interval development pulmonary edema. 2. Slight increase in size of a small RIGHT pleural effusion. 3. Nasogastric tube in good position. KUB X-Ray 07/09/21 00:40 IMPRESSION: Diffuse colonic ileus. Laboratory Results WBC 15.8 10^3/uL (4.0-10.0) H 07/09/21 01:28 RBC 4.26 10^6/uL (4.1-5.3) 07/09/21 01:28 Hgb 13.6 g/dL (11.5-15.3) 07/09/21 01:28 Hct 39.8 % (37.0-47.0) 07/09/21 01:28 MCV 93.4 fl (81-99) 07/09/21 01:28 MCH 31.9 pg (28.0-34.0) 07/09/21 01: MCHC 34.2 g/dL (30.0-36.0) 07/09/21 01: RDW 20.5 % (12.1-15.1) H 07/09/21 01:28 Plt Count 174 10^3/cmm (130-400) 07/09/21 01:28 MPV 11.0 fL (7.4-10.4) H 07/09/21 01:28 Neut % (Auto) 75.8 % 07/09/21 01:28 Lymph % (Auto) 10.8 % 07/09/21 01:28 [place] % (Auto) 12.1 % 07/09/21 01:28 Eos % (Auto) 0.5 % 07/09/21 01: Baso % (Auto) 0.3 % 07/09/21 01:28 Neut # (Auto) 11.94 10^3/uL (1.8-7.7) H 07/09/21 01:28 Lymph # (Auto) 1.7 10^3/uL (0.8-4.8) 07/09/21 01:28 [place] # (Auto) 1.9 10^3/uL (0.2-0.9) H 07/09/21 01:28 Eos # (Auto) 0.1 10^3/uL (0.0-0.8) 07/09/21 01:28 Baso # (Auto) 0.0 10^3/uL (0.0-0.1) 07/09/21 01:28 Nucleated RBC % (auto) 0.1 % 07/09/21 01:28 Nucleated RBCs # 0.0 /100WBC 07/09/21 01:28 PT 18.50 SECONDS (12.1-14.9) H 07/09/21 01:28 INR 1.51 (0.8-1.2) H 07/09/21 01:28 APTT 36.8 SECONDS (23.9-36.7) H 07/09/21 01:28 Specimen Type Arterial 07/09/21 01:33 Sample Site Radial, right 07/09/21 01:33 ABG pH 7.44 (7.35-7.45) 07/09/21 01:33 ABG pCO2 41.0 mmHg (35-45) 07/09/21 01:33 ABG pO2 66.2 mmHg (80.0-100.0) L 07/09/21 01:33 ABG HCO3 27.5 mmol/L (22-26) H 07/09/21 01:33 ABG O2 Saturation 93.1 07/09/21 01:33 ABG Base Excess 3.0 mmol/L (-2.0-2.0) H 07/09/21 01:33 Amrit Test Pos 07/09/21 01:33 A-a O2 Gradient 4.3 mmHg (5-10) L 07/09/21 01:33 Hematocrit 41.4 % (37-47) 07/09/21 01:33 Hgb O2 Saturation 90.8 % (95-100) L 07/09/21 01:33 Carboxyhemoglobin 1.6 %THgb (0.4-20.1) 07/09/21 01:33 Methemoglobin 0.9 % (0.4-1.5) 07/09/21 01:33 Total Hemoglobin 13.5 g/dL (12-16) 07/09/21 01:33 Sodium 142.0 mmol/L (131-143) 07/09/21 01:33 Potassium 3.4 mmol/L (3.5-5.0) L 07/09/21 01:33 Glucose 107.0 mg/dL (70-115) 07/09/21 01:33 Ionized Calcium 1.2 mmol/L (1.1-1.4) 07/09/21 01:33 O2 Delivery Device Nc 07/09/21 01:33 O2 Liters/Min 3.0 % 07/09/21 01:33 FiO2 36.0 % 07/07/21 08:38 Binding Folder Machine ID Emerson 07/09/21 01:33 Sodium 139 mmol/L (136-145) 07/09/21 01:28 Potassium 3.7 mmol/L (3.5-5.1) 07/09/21 01:28 Chloride 100 mmol/L (98-107) 07/09/21 01:28 Carbon Dioxide 24 mmol/L (22-29) 07/09/21 01:28 Anion Gap 18.7 (5-19) 07/09/21 01:28 BUN 14 mg/dL (8-23) 07/09/21 01:28 Creatinine 1.1 mg/dL (0.5-0.9) H 07/09/21 01:28 GFR Calculation 50.3 mL/min (90-130) L 07/09/21 01:28 Glucose 108 mg/dL (65-115) 07/09/21 01:28 POC Glucose 111 mg/dL (70-110) H 07/09/21 17:55 Calculated Osmolality 289 mOsm/kg (285-295) 07/09/21 01:28 Lactic Acid 2.3 mmol/L (0.5-2.2) H 07/07/21 08:25 Lactic Acid (Sepsis) 2.7 mmol/L (0.5-2.2) H 07/07/21 11:05 Lactate 3.4 mmol/L (0.5-2.2) H 07/09/21 01:28 Calcium 9.5 mg/dL (8.5-10.5) 07/09/21 01:28 Phosphorus 3.1 mg/dL (2.5-4.5) 07/09/21 01:28 Magnesium 2.1 mg/dL (1.7-2.3) 07/09/21 01:28 Total Bilirubin 6.3 mg/dL (0.15-1.2) H 07/09/21 01:28 Direct Bilirubin 3.20 mg/dL (0.00-0.30) H 07/09/21 10:37 AST 76 U/L (0-32) H 07/09/21 01:28 ALT 23 U/L (0-33) 07/09/21 01:28 Alkaline Phosphatase 205 IU/L (35-105) H 07/09/21 01:28 Ammonia 92 umol/L (11-51) H 07/09/21 01:28 Creatine Kinase 24 U/L (26-192) L 07/07/21 08:25 Troponin T Baseline 22 ng/L (0-10) H 07/09/21 01:28 Troponin T 120 Minute 21.17 ng/L (0-10) H 07/09/21 06:43 Delta Troponin T -0.83 ABS# (0-10) L 07/09/21 06:43 Troponin T Hi Sens 6Hr 18.88 ng/L (0-10) H 07/09/21 10:37 Troponin T Hi Sens 6Hr Delta -3.12 ng/L (0-12) L 07/09/21 10:37 NT-Pro-B Natriuret Pep 2600 pg/mL (0-125) H 07/09/21 01:28 Total Protein 6.9 g/dL (6.6-8.7) 07/09/21 01:28 Albumin 3.2 g/dL (3.5-5.2) L 07/09/21 01:28 Globulin 3.7 g/dL (1.3-4.6) 07/09/21 01:28 Lipase 14 U/L (13-60) 07/07/21 08:25 Vitamin B12 1449 pg/mL (232-1245) H 07/07/21 08:25 TSH 20.86 uIU/mL (0.27-4.20) H 07/07/21 08:25 Free T4 0.87 ng/dL (0.82-1.77) 07/07/21 08:25 Free T3 1.4 PG/ML (2.0-4.4) L 07/07/21 08:25 Urine Color [place] (Yellow) 07/07/21 08:55 Urine Appearance Clear (CLEAR) 07/07/21 08:55 Urine pH 6 (5-7) 07/07/21 08:55 Ur Specific [place] 1.015 (1.005-1.030) 07/07/21 08:55 Urine Protein Neg (Negative) 07/07/21 08:55 Urine Glucose (UA) Norm (Normal) 07/07/21 08:55 Urine Ketones Negative (Negative) 07/07/21 08:55 Urine Blood Neg (Negative) 07/07/21 08:55 Urine Nitrate Negative (Negative) 07/07/21 08:55 Urine Bilirubin 1+ (Negative) H 07/07/21 08:55 Urine Urobilinogen 8 mg/dL (Negative) H 07/07/21 08:55 Ur Leukocyte Esterase Trace (Negative) H 07/07/21 08:55 Urine RBC None /hpf (0-2) 07/07/21 08:55 Urine WBC Rare /hpf (0-5) 07/07/21 08:55 Ur Squamous Epith Cells None /hpf (0-5) 07/07/21 08:55 Amorphous Sediment Not Reportable 07/07/21 08:55 Urine Bacteria 1+ /hpf (NONE) H 07/07/21 08:55 Salicylates < 0.3 mg/dL (3-10) L 07/07/21 08:25 Acetaminophen < 5.0 ug/mL (10-30) L 07/07/21 08:25 Ethyl Alcohol < 10 mg/dL (0-10) 07/07/21 08:25 Hepatitis A IgM Ab Non-reactive (Nonreactive) 07/07/21 12:40 Hep Bs Antigen Non-reactive (Nonreactive) 07/07/21 12:40 Hep B Core IgM Ab Non-reactive (Nonreactive) 07/07/21 12:40 Hepatitis C Antibody Non-reactive (Nonreactive) 07/07/21 12:40 Micro: Microbiology 07/07/21 08:25 Blood Culture - Preliminary Blood Staphylococcus sp coag neg Streptococcus viridans group Staphylococcus aureus 07/07/21 09:40 Blood Culture - Preliminary Blood Staphylococcus aureus Staphylococcus epidermidis Streptococcus viridans group 07/09/21 10:42 Blood Culture - Preliminary Blood SPECIMEN COLLECTED 07/09/21 10:40 Blood Culture - Preliminary Blood SPECIMEN COLLECTED A&P Assessment and plan (1) Hepatic encephalopathy: Status: Acute (2) Septic encephalopathy: Status: Acute (3) Acute kidney injury: Status: Acute (4) Pneumonia: Status: Acute (5) Cigarette smoker: Status: Chronic (6) Bilateral lower extremity pain: Status: Acute (7) Chronic obstructive pulmonary disease, unspecified: Status: Chronic Qualifiers: COPD type: chronic bronchitis Chronic bronchitis type: unspecified Qualified Code(s): J42 - Unspecified chronic bronchitis (8) CAD (coronary artery disease): Status: Chronic Qualifiers: Coronary Disease-Associated Artery/Lesion type: lummi artery [place] vs. transplanted heart: lummi heart Associated angina: without angina Qualified Code(s): I25.10 - Atherosclerotic heart disease of lummi coronary artery without angina pectoris (9) History of alcohol abuse: Status: Acute Plan 61-year-old female with significant history of alcohol abuse, history of MRSA pneumonia, chronic right pleural effusion-admitted for altered mental status secondary to hepatic encephalopathy/sepsis encephalopathy secondary to staph b acteremia #Hepatic encephalopathy in patient with significant history of alcohol abuse -Takes at least 6 drinks of vodka every night-last drink more than 1 week prior to admission -Continue rifaximin 550 p.o. twice daily -Switched p.o. lactulose to IN lactulose every 6 hours as needed-Target 3-4 loose soft BM -Patient able to maintain airway saturating 93% on 4 L nasal cannula -No diaphoresis/tachycardia/unable to inquire about hallucinations as patient received sedation and was sleepy today morningless likely in withdrawal as last drink was > 1 week -Recommended to avoid benzodiazepines-can start on Precedex if patient is agitated -Now that patient started to have good BM-expect her mentation will improve in the next 12 to 24 hours-meanwhile recommended close monitoring of her respiratory status-and should have low threshold for intubation -Continue multivitamin/folic acid/thiamine for alcohol abuse -Held her rosuvastatin 40 Mg p.o. daily -CT abdomen pelvis 07/07/2021 showed improvement in perihepatic fluid compared to 06/23/2021. Hepatic steatosis.No free fluid in the abdomen. Abdominal ultrasound nondiagnostic due to body habitus. #Encephalopathy can also be secondary to staph bacteremia/MRSA pneumonia -Bilateral lower extremity blisters versus pneumonia-being the source -Admission blood cultures on 07/07/2021-grew staph aureus/staph epidermidis/strep viridans -Currently patient is receiving Zosyn and linezolid -Repeat blood culture sent today -Echo 07/08/2021: Reported technically difficult study with no parasternal windo ws-however reported normal LV size systolic function with EF 70 to 75% and no diagnostic regional wall motion abnormality. -No fever spikes and if repeat cultures are still positive-would recommend ANUPAMA to rule out vegetations #Chronic right pleural effusion patient with history of COVID March 2020 and MRSA pneumonia August 2020 -S/p right thoracoscopy with lysis of adhesions and decortication and tube thoracostomy on 04/15/2021 at [facility] -As per CT surgery note evacuated 350 to 400 mL clear fluid and limited decortication was accomplished over the areas that were adhered with excellent reexpansion of the lung . -Chest tubes were removed on 04/21/2021 and she was discharged home on 04/22/2021. We do not have any culture or biopsy results.-We will obtain records -Abdominal pelvic CT 07/07/2021 this admission showed Small RIGHT pleural effusion with focal consolidation at the lung bases which is probably rounded atelectasis. #COPD/CAD s/p 2 stents/diastolic heart failure/morbid obesity #Chronic smoker 1 pack/day for 45 years-currently smoking half pack per day #Daily 6 shots of vodka for several years - [facility] 3-1 hospitalization-group D -PFTs 02/11/2022: The spirometry shows restrictive pattern.? Lung volumes suggestive of moderate restriction.? There is moderate gas transfer defect.? Constellation of findings consistent with moderate restrictive lung disease with gas transfer defect.? Possible coexisting extrathoracic restrictive lung disease due to morbid obesity and COPD causing gas transfer defect -Uses Incruse 1 puff daily and Advair 500-50 MCG 1 puff twice daily, albuterol as needed as outpatient -Placed on DuoNeb and Pulmicort scheduled nebulization while in hospital -Had soft blood pressures-held carvedilol 12.5 mg p.o. twice daily, lisinopril 20 mg p.o. daily, -Plavix held due to hematuria Hypothyroidism: Levothyroxine 25 MCG Synthyroid Diet: N.p.o. 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 transplanted heart: [place] heart Associated angina: without angina History of alcohol abuse F10.11 Hepatic encephalopathy K72.90 Septic encephalopathy G93.41 Time Spent (min) 65
[2021-07-09] MEDS: FUROsemide 10 mg/mL SDV 4mL 40 MG IVP (20:57)
--- NOTE | 2021-07-09 21:12 | PC.NURSE ---
Patient's silver colored ring with blue turquoise colored stone was removed from left fourth finger due to increased swelling. Ring was placed in a denture cup with patient labels placed on it
[2021-07-10] VITALS (30 sets, daily range): BP systolic 70–123; BP diastolic 47–72; PULSE 73–107; RESP 19–41; TEMP 36.6–37; O2SAT 86–99
[2021-07-10] MEDS: piperacillin-tazobactam 3.375 GM in sodium chloride 0.9% (plus) 100 ML IV ×3 (01:38→19:32)
[2021-07-10] MEDS: linezolid premix 600 MG/300 ML PREMIX 300 MG IV ×2 (02:39→15:41)
[2021-07-10] MEDS: ipratropium-albuterol 3 mL Neb INHALATION ×4 (03:26→20:00)
[2021-07-10] MEDS: levothyroxine 25 mcg Tablet PO (06:09)
[2021-07-10 06:16] LABS: ABG PCO2 42.5 mmHg (35-45); ABG PH Result 7.45 (7.35-7.45); Alveolar-Arterial Oxygen Gradi 2.8 mmHg (5-10); Arterial Blood Gas Hematocrit 41.7 % (37-47); Base Excess ABG 5.1 mmol/L (-2.0-2.0); Blood Gas Operator Identificat JB; Blood Gas Sample Site Brachial, right; Blood Gas Sample Type Arterial; Carboxyhemoglobin 1.6 %THgb (0.4-20.1); HCO3 ABG 29.7 mmol/L (22-26); HGB O2 Sat 93.7 % (95-100); Ionized Calcium Level - ABG 1.2 mmol/L (1.1-1.4); Methemoglobin 0.5 % (0.4-1.5); Oxygen Device NC; Oxygen Saturation ABG 95.7; PO2 ABG 75.9 mmHg (80.0-100.0); Potassium Level - ABG 2.8 mmol/L (3.5-5.0); Total Hemoglobin 13.6 g/dL (12-16)
[2021-07-10 07:35] LABS: Basophils # 0.1 10^3/uL (0.0-0.1); Basophils % 0.3 %; Eosinophils # 0.1 10^3/uL (0.0-0.8); Eosinophils % 0.7 %; Hematocrit 38.5 % (37.0-47.0); Hemoglobin 13.4 g/dL (11.5-15.3); Lymphocytes # 1.5 10^3/uL (0.8-4.8); Mean Corpuscular HGB Conc 34.8 g/dL (30.0-36.0); Mean Corpuscular Hemoglobin 33.2 pg (28.0-34.0); Mean Corpuscular Volume 95.3 fl (81-99); Mean Platelet Volume 12.1 fL (7.4-10.4); Monocytes # 1.1 10^3/uL (0.2-0.9); Monocytes % 7.3 %; Neutrophils % 81.2 %; Nucleated Red Blood Cells # 0.1 /100WBC; Nucleated Red Blood Cells % 0.5 %; Platelet Count 146 10^3/cmm (130-400); Red Blood Count 4.04 10^6/uL (4.1-5.3); Red Cell Distribution Width 21.2 % (12.1-15.1); White Blood Count 15.3 10^3/uL (4.0-10.0)
[2021-07-10 07:51] LABS: Alanine Aminotransferase 20 U/L (0-33); Albumin Level 3.1 g/dL (3.5-5.2); Alkaline Phosphatase 143 IU/L (35-105); Anion Gap 14.7 (5-19); Aspartate Amino Transferase 49 U/L (0-32); Blood Urea Nitrogen 14 mg/dL (8-23); Calcium 9.2 mg/dL (8.5-10.5); Carbon Dioxide 28 mmol/L (22-29); Chloride 102 mmol/L (98-107); Globulin 2.9 g/dL (1.3-4.6); Glomerular Filtration Rate 56.2 mL/min (90-130); Glucose 95 mg/dL (65-115); Osmolality Calculated 294 mOsm/kg (285-295); Sodium 142 mmol/L (136-145); Total Bilirubin 5.4 mg/dL (0.15-1.2)
[2021-07-10 08:01] LABS: Potassium 2.7 mmol/L (3.5-5.1)
[2021-07-10 08:02] LABS: Ammonia 64 umol/L (11-51)
[2021-07-10 08:12] LABS: INR 1.88 (0.8-1.2)
[2021-07-10 08:13] LABS: Partial Thromboplastin Time 40.7 SECONDS (23.9-36.7)
[2021-07-10 08:16] LABS: D Dimer 3.53 ug/mIFEU (0-0.59)
[2021-07-10 08:19] LABS: Fibrinogen 240 mg/dL (174-498)
[2021-07-10] MEDS: budesonide 0.5 mg/2 mL Neb INHALATION ×2 (08:30→20:00)
[2021-07-10 08:39] LABS: Glucose Point of Care 92 mg/dL (70-110)
[2021-07-10] MEDS: pantoprazole 40 mg SDV IVP (08:47)
[2021-07-10] MEDS: thiamine 100 mg Tablet PO (08:47)
[2021-07-10] MEDS: lidocaine 1% 5 ML in potassium chloride premix 100 ML 25 ML IV ×2 (08:47→13:05)
--- NOTE | 2021-07-10 11:01 | PM.PN ---
Subjective Subjective: Zenaida received sedation last night in the form of Precedex. She is lethargic this morning. She will move and awaken to noxious stimuli, and withdrawal but does not provide any verbal response other than groaning. Does not follow directions. Medications: Reviewed: Yes Vitals/I&O/Wt Last Vital Signs Temp 97.9 F 07/10/21 08:00 Pulse 93 07/10/21 10:00 Resp 25 H 07/10/21 10:00 BP 114/69 07/10/21 10:00 Pulse Ox 95 07/10/21 10:00 07/09/21 07/10/21 07/10/21 22:59 06:59 14:59 Intake Total 400 / 691.25 620.878 / 1312.128 0 / 0 Output Total 600 / 600 975 / 1575 Balance -200 / 91.25 -354.122 / -262.872 0 / 0 Weight last 48 hrs Weight 116.936 kg Weight 114.305 kg Physical Exam Narrative: General exam is lethargic female in no distress Neck is supple no lymphadenopathy or thyromegaly Cardiovascular regular rate and rhythm without murmur, no S3 or S4 Lungs clear to auscultation bilaterally. No wheezes or crackles. Abdomen is obese with positive bowel sounds. Slight distention noted. exam demonstrates Jacobo Extremities 1+ edema, with a few blisters around the feet and ankles. Venous stasis changes. No cyanosis or clubbing Skin see findings above Neurologic: No focal deficits noted. Moves all extremities. Urinary Catheter Management: Jacobo: Cath Placed During This Visit: yes Reason for Continuing Indwelling Catheter: Accurate Measurement of Urinary Output in Critically Ill Patients Urinary Catheter Date of Insertion: 07/07/21 Urinary Catheter Time of Insertion: 09:05 Data : 07/10/21 07:17 07/10/21 07:17 Other Labs: ABG demonstrates a pH 7.45, PCO2 42, PO2 of 75 on 4 L Magnesium level 2.0 Bilirubin 5.4, AST 49, alk phos 143, ammonia 64 improved Initial blood culture showing 3 organisms, staph coag negative in 2 bottles, strep viridans 2 bottles, staff aureus 1 bottle. Repeat cultures negative to date. MRSA PCR positive Micro: Microbiology 07/09/21 10:42 Blood Culture - Preliminary Blood NEGATIVE TO DATE 07/09/21 10:40 Blood Culture - Preliminary Blood NEGATIVE TO DATE 07/07/21 08:25 Blood Culture - Preliminary Blood Staphylococcus sp coag neg Streptococcus viridans group Staphylococcus aureus 07/07/21 09:40 Blood Culture - Preliminary Blood Staphylococcus aureus Staphylococcus epidermidis Streptococcus viridans group A&P Assessment and plan (1) Acute encephalopathy: Patient with significant acute encephalopathy on admission. Ammonia level significantly high. This is improving with lactulose enemas Another possibility is acute metabolic encephalopathy secondary to infection. She is currently on Zosyn, linezolid. Blood cultures are growing multiple organisms but repeat cultures negative. Continue to monitor for improvement Note CT head on admission no acute changes. Hold Neurontin Has intermittently required Ativan. Precedex was initiated last night secondary to agitation. She had some bradycardia with this and it was ultimately discontinued. Status: Acute (2) Hypokalemia: Significantly low today. Supplemented with 80 mEq IV per pulmonary. Recheck BMP this afternoon Renal function has remained stable at this point. Status: Acute (3) Acute kidney injury: Renal function stable at this point. Continue to hold beta-fernanda. Status: Acute (4) Leukocytosis: There is a possibility of SBP and/or other infection. This could also be secondary to pneumonia with chest x-ray changes right lung. Unfortunately the patient did have recent surgery at [facility] on the right lung secondary to effusion as well as scraping of the lung. Records have been requested, received, reviewed Continue linezolid, Zosyn Secondary to potential for SBP, patient was placed on albumin and beta-fernanda held on admission. She is now somewhat hypotensive, so or norepinephrine has been added. 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 Vancomycin will not be used as concern for vancomycin induced nephrotoxicity in the past. Blood culture with multiple organisms, repeat negative Status: Acute (6) Transaminitis: Hepatitis panel negative This could be secondary to alcoholic hepatitis. Severity scoring not high enough to warrant steroids. Thiamine 100 mg daily Continue to follow LFT's. Bilirubin now slightly better Hold beta-fernanda Secondary to history of abdominal pain, worse in the last several weeks lipase was checked and normal. CT abd and pelvis showed fatty liver, small right pleural effusion, status post cholecystectomy Put on albumin. With hypotension today, norepinephrine was initiated. Status: Acute (7) CAD (coronary artery disease): Plavix held secondary to hematuria. Hold statin secondary to elevated LFTs Note that CK was normal. Status: Chronic Qualifiers: Coronary Disease-Associated Artery/Lesion type: [place] artery [place] vs. transplanted heart: [place] heart Associated angina: without angina Qualified Code(s): I25.10 - Atherosclerotic heart disease of [place] coronary artery without angina pectoris (8) Chronic obstructive pulmonary disease, unspecified: DuoNeb as needed Budesonide twice daily Status: Chronic Qualifiers: COPD type: chronic bronchitis Chronic bronchitis type: unspecified Qualified Code(s): J42 - Unspecified chronic bronchitis Plan Hypotension. Norepinephrine has been added. Hepatic encephalopathy, ammonia level improved Bacteremia. See notations above Blisters lower extremities. This is likely secondary to edema, possibly sepsis Antibiotics as noted. We will work on reducing edema once hepatic encephalopathy improved. Hematuria. Now has developed. Plavix and aspirin was held. Heparin was held but now restarted. We will go ahead and reinitiate low-dose aspirin. Significant edema. Echocardiogram of poor quality but 70 to 75% EF. Venous duplex negative. Elevated TSH. Placed on 25 mcg of Synthroid. Recheck TSH as an outpatient, and adjust dosing further. Multiple other medical problems as outlined in past medical history Full code Heparin now reinitiated Protonix for GI prophylaxis Attestations Medical Necessity Statement*: Needs continued hospitalization secondary to pneumonia requiring IV antibiotics, liver failure requiring close monitoring, further treatment of hepatic encephalopathy. Critical Care Time: The high probability of a clinically significant, sudden or life threatening deterioration of the patient's [cardiovascular, GI, hepatic, renal, neurologic system(s) required my full and direct attention, intervention and personal management. The critical care time is as shown. 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 transplanted heart: [place] heart Associated angina: without angina Chronic obstructive pulmonary disease, unspecified J42 COPD type: chronic bronchitis Chronic bronchitis type: unspecified
[2021-07-10 13:29] LABS: Glucose Point of Care 90 mg/dL (70-110)
--- NOTE | 2021-07-10 14:16 | PC.SOCIAL ---
IMM update IMM not updated as patient isn't accepted to DC in the next 24/48 hours.
[2021-07-10] MEDS: heparin 5,000 unit/mL INJ 1 mL 5000 UNIT SUBCUT (15:41)
[2021-07-10 17:21] LABS: Glucose Point of Care 92 mg/dL (70-110)
--- NOTE | 2021-07-10 17:52 | P.PN_ITS ---
Subjective Subjective: -No significant change in mentation; moves all extremities with tactile stimuli but no meaningful conversation -overnight patient had 6 bowel movements -Received Precedex for brief time -discontinued once he became bradycardic -Able to come down oxygen to 1 L -Other labs and imaging reviewed Medications: Reviewed: Yes Vitals/I&O/Wt Last Vital Signs Temp 97.9 F 07/10/21 08:00 Pulse 95 07/10/21 16:00 Resp 27 H 07/10/21 16:00 BP 104/70 07/10/21 16:00 Pulse Ox 94 07/10/21 16:00 07/10/21 07/10/21 07/10/21 06:59 14:59 22:59 Intake Total 620.878 / 1312.128 205 / 205 300 / 505 Output Total 975 / 1575 Balance -354.122 / -262.872 205 / 205 300 / 505 Weight last 48 hrs Weight 257 lb 12.8 oz Weight 252 lb Physical Exam Narrative: General: Drowsy, not following commands HEENT: J yellowish discoloration of bilateral sclera appeared somewhat better, PERRL, mmm, Neck: supple, no meningismus Heme: no cervical LAP Pulmonary: Reduced breath sounds on right side and bibasilar crackles Cardiovascular: rrr, nl s1s2, no mrg Abdomen: soft, nt, distended, no r/g, sluggish bs+ Extremities: pulses +, 2+ edema, blisters around feet and ankles changes consistent with chronic venous insufficiency : no CVA tenderness Skin: intact, no rash MSK: no back or neck pain Neurologic: grossly intact Urinary Catheter Management: Jacobo: Cath Placed During This Visit: yes Reason for Continuing Indwelling Catheter: Accurate Measurement of Urinary Output in Critically Ill Patients Urinary Catheter Date of Insertion: 07/07/21 Urinary Catheter Time of Insertion: 09:05 Data : 07/10/21 07:17 07/10/21 07:17 Other Labs: Radiology Impressions Head CT 07/07/21 08:05 IMPRESSION: 1. No acute intracranial hemorrhage or edema. 2. Stable noncontrast head CT. Ankle X-Ray 07/07/21 08:20 IMPRESSION: Posttraumatic (remote) osteoarthritis. No acute abnormality identified. Foot X-Ray 07/07/21 08:20 IMPRESSION: Large soft tissue mass on the dorsum of the foot of unknown etiology. Osteoarthritis. No acute abnormality identified. Gallbladder Ultrasound 07/07/21 09:35 IMPRESSION: Nondiagnostic evaluation secondary to body habitus. Abdomen/Pelvis CT 07/07/21 13:19 IMPRESSION: 1. Severe low attenuation throughout the liver most likely due to hepatic steatosis as similar findings may be due to acute hepatitis. 2. Small amount of perihepatic fluid has decreased in diameter since 06/23/2021 from 3.1 to 1.7 cm in diameter. 3. Small RIGHT pleural effusion with focal consolidation at the lung bases which is probably rounded atelectasis. 4. Status post cholecystectomy. No bile duct dilatation. 5. Soft tissue anasarca. Chest X-Ray 07/08/21 21:56 IMPRESSION: 1. Interval development pulmonary edema. 2. Slight increase in size of a small RIGHT pleural effusion. 3. Nasogastric tube in good position. KUB X-Ray 07/09/21 00:40 IMPRESSION: Diffuse colonic ileus. Laboratory Results WBC 15.3 10^3/uL (4.0-10.0) H 07/10/21 07:17 RBC 4.04 10^6/uL (4.1-5.3) L 07/10/21 07:17 Hgb 13.4 g/dL (11.5-15.3) 07/10/21 07:17 Hct 38.5 % (37.0-47.0) 07/10/21 07:17 MCV 95.3 fl (81-99) 07/10/21 07:17 MCH 33.2 pg (28.0-34.0) 07/10/21 07:17 MCHC 34.8 g/dL (30.0-36.0) 07/10/21 07:17 RDW 21.2 % (12.1-15.1) H 07/10/21 07:17 Plt Count 146 10^3/cmm (130-400) 07/10/21 07:17 MPV 12.1 fL (7.4-10.4) H 07/10/21 07:17 Neut % (Auto) 81.2 % 07/10/21 07:17 Lymph % (Auto) 10.0 % 07/10/21 07:17 [place] % (Auto) 7.3 % 07/10/21 07:17 Eos % (Auto) 0.7 % 07/10/21 07:17 Baso % (Auto) 0.3 % 07/10/21 07:17 Neut # (Auto) 12.40 10^3/uL (1.8-7.7) H 07/10/21 07:17 Lymph # (Auto) 1.5 10^3/uL (0.8-4.8) 07/10/21 07:17 [place] # (Auto) 1.1 10^3/uL (0.2-0.9) H 07/10/21 07:17 Eos # (Auto) 0.1 10^3/uL (0.0-0.8) 07/10/21 07:17 Baso # (Auto) 0.1 10^3/uL (0.0-0.1) 07/10/21 07:17 Nucleated RBC % (auto) 0.5 % 07/10/21 07:17 Nucleated RBCs # 0.1 /100WBC 07/10/21 07:17 PT 22.00 SECONDS (12.1-14.9) H 07/10/21 07:17 PT Cancelled 07/10/21 07:17 INR 1.88 (0.8-1.2) H 07/10/21 07:17 INR Cancelled 07/10/21 07:17 APTT 40.7 SECONDS (23.9-36.7) H 07/10/21 07:17 Fibrinogen 240 mg/dL (174-498) 07/10/21 07:17 Fibrin Degrad Products Neg, <10 ug/mL (NEG) 07/10/21 07:17 D-Dimer 3.53 ug/mIFEU (0-0.59) H 07/10/21 07:17 Specimen Type Arterial 07/10/21 06:00 Sample Site Brachial, right 07/10/21 06:00 ABG pH 7.45 (7.35-7.45) 07/10/21 06:00 ABG pCO2 42.5 mmHg (35-45) 07/10/21 06:00 ABG pO2 75.9 mmHg (80.0-100.0) L 07/10/21 06:00 ABG HCO3 29.7 mmol/L (22-26) H 07/10/21 06:00 ABG O2 Saturation 95.7 07/10/21 06:00 ABG Base Excess 5.1 mmol/L (-2.0-2.0) H 07/10/21 06:00 Amrit Test N/a 07/10/21 06:00 A-a O2 Gradient 2.8 mmHg (5-10) L 07/10/21 06:00 Hematocrit 41.7 % (37-47) 07/10/21 06:00 Hgb O2 Saturation 93.7 % (95-100) L 07/10/21 06:00 Carboxyhemoglobin 1.6 %THgb (0.4-20.1) 07/10/21 06:00 Methemoglobin 0.5 % (0.4-1.5) 07/10/21 06:00 Total Hemoglobin 13.6 g/dL (12-16) 07/10/21 06:00 Sodium 141.0 mmol/L (131-143) 07/10/21 06:00 Potassium 2.8 mmol/L (3.5-5.0) L 07/10/21 06:00 Glucose 92.0 mg/dL (70-115) 07/10/21 06:00 Ionized Calcium 1.2 mmol/L (1.1-1.4) 07/10/21 06:00 O2 Delivery Device Nc 07/10/21 06:00 O2 Liters/Min 4.0 % 07/10/21 06:00 FiO2 36.0 % 07/07/21 08:38 Welding Inspector ID [place] 07/10/21 06:00 Sodium 142 mmol/L (136-145) 07/10/21 07:17 Potassium 2.7 mmol/L (3.5-5.1) L* 07/10/21 07:17 Chloride 102 mmol/L (98-107) 07/10/21 07:17 Carbon Dioxide 28 mmol/L (22-29) 07/10/21 07:17 Anion Gap 14.7 (5-19) 07/10/21 07:17 BUN 14 mg/dL (8-23) 07/10/21 07:17 Creatinine 1.0 mg/dL (0.5-0.9) H 07/10/21 07:17 GFR Calculation 56.2 mL/min (90-130) L 07/10/21 07:17 Glucose 95 mg/dL (65-115) 07/10/21 07:17 POC Glucose 92 mg/dL (70-110) 07/10/21 17:18 Calculated Osmolality 294 mOsm/kg (285-295) 07/10/21 07:17 Lactic Acid 2.3 mmol/L (0.5-2.2) H 07/07/21 08:25 Lactic Acid (Sepsis) 2.7 mmol/L (0.5-2.2) H 07/07/21 11:05 Lactate 3.4 mmol/L (0.5-2.2) H 07/09/21 01:28 Calcium 9.2 mg/dL (8.5-10.5) 07/10/21 07:17 Phosphorus 3.1 mg/dL (2.5-4.5) 07/09/21 01:28 Magnesium 2.0 mg/dL (1.7-2.3) 07/10/21 07:17 Total Bilirubin 5.4 mg/dL (0.15-1.2) H 07/10/21 07:17 Direct Bilirubin 3.20 mg/dL (0.00-0.30) H 07/09/21 10:37 AST 49 U/L (0-32) H 07/10/21 07:17 ALT 20 U/L (0-33) 07/10/21 07:17 Alkaline Phosphatase 143 IU/L (35-105) H 07/10/21 07:17 Ammonia 64 umol/L (11-51) H 07/10/21 07:17 Creatine Kinase 24 U/L (26-192) L 07/07/21 08:25 Troponin T Baseline 22 ng/L (0-10) H 07/09/21 01:28 Troponin T 120 Minute 21.17 ng/L (0-10) H 07/09/21 06:43 Delta Troponin T -0.83 ABS# (0-10) L 07/09/21 06:43 Troponin T Hi Sens 6Hr 18.88 ng/L (0-10) H 07/09/21 10:37 Troponin T Hi Sens 6Hr Delta -3.12 ng/L (0-12) L 07/09/21 10:37 NT-Pro-B Natriuret Pep 2600 pg/mL (0-125) H 07/09/21 01:28 Total Protein 6.0 g/dL (6.6-8.7) L 07/10/21 07:17 Albumin 3.1 g/dL (3.5-5.2) L 07/10/21 07:17 Globulin 2.9 g/dL (1.3-4.6) 07/10/21 07:17 Lipase 14 U/L (13-60) 07/07/21 08:25 Vitamin B12 1449 pg/mL (232-1245) H 07/07/21 08:25 TSH 20.86 uIU/mL (0.27-4.20) H 07/07/21 08:25 Free T4 0.87 ng/dL (0.82-1.77) 07/07/21 08:25 Free T3 1.4 PG/ML (2.0-4.4) L 07/07/21 08:25 Urine Color [place] (Yellow) 07/07/21 08:55 Urine Appearance Clear (CLEAR) 07/07/21 08:55 Urine pH 6 (5-7) 07/07/21 08:55 Ur Specific [place] 1.015 (1.005-1.030) 07/07/21 08:55 Urine Protein Neg (Negative) 07/07/21 08:55 Urine Glucose (UA) Norm (Normal) 07/07/21 08:55 Urine Ketones Negative (Negative) 07/07/21 08:55 Urine Blood Neg (Negative) 07/07/21 08:55 Urine Nitrate Negative (Negative) 07/07/21 08:55 Urine Bilirubin 1+ (Negative) H 07/07/21 08:55 Urine Urobilinogen 8 mg/dL (Negative) H 07/07/21 08:55 Ur Leukocyte Esterase Trace (Negative) H 07/07/21 08:55 Urine RBC None /hpf (0-2) 07/07/21 08:55 Urine WBC Rare /hpf (0-5) 07/07/21 08:55 Ur Squamous Epith Cells None /hpf (0-5) 07/07/21 08:55 Amorphous Sediment Not Reportable 07/07/21 08:55 Urine Bacteria 1+ /hpf (NONE) H 07/07/21 08:55 Salicylates < 0.3 mg/dL (3-10) L 07/07/21 08:25 Acetaminophen < 5.0 ug/mL (10-30) L 07/07/21 08:25 Ethyl Alcohol < 10 mg/dL (0-10) 07/07/21 08:25 Hepatitis A IgM Ab Non-reactive (Nonreactive) 07/07/21 12:40 Hep Bs Antigen Non-reactive (Nonreactive) 07/07/21 12:40 Hep B Core IgM Ab Non-reactive (Nonreactive) 07/07/21 12:40 Hepatitis C Antibody Non-reactive (Nonreactive) 07/07/21 12:40 Micro: Microbiology 07/07/21 08:25 Blood Culture - Preliminary Blood Staphylococcus sp coag neg Streptococcus viridans group Methicillin Resis Staph Aureus 07/07/21 09:40 Blood Culture - Preliminary Blood Methicillin Resis Staph Aureus Staphylococcus epidermidis Streptococcus viridans group 07/09/21 10:42 Blood Culture - Preliminary Blood NEGATIVE TO DATE 07/09/21 10:40 Blood Culture - Preliminary Blood NEGATIVE TO DATE A&P Assessment and plan (1) Hepatic encephalopathy: Status: Acute (2) Septic encephalopathy: Status: Acute (3) Acute kidney injury: Status: Acute (4) Pneumonia: Status: Acute (5) Cigarette smoker: Status: Chronic (6) Bilateral lower extremity pain: Status: Acute (7) Chronic obstructive pulmonary disease, unspecified: Status: Chronic Qualifiers: COPD type: chronic bronchitis Chronic bronchitis type: unspecified Qualified Code(s): J42 - Unspecified chronic bronchitis (8) CAD (coronary artery disease): Status: Chronic Qualifiers: Coronary Disease-Associated Artery/Lesion type: [place] artery [place] vs. transplanted heart: [place] heart Associated angina: without angina Qualified Code(s): I25.10 - Atherosclerotic heart disease of [place] coronary artery without angina pectoris (9) History of alcohol abuse: Status: Acute (10) Hypokalemia due to excessive gastrointestinal loss of potassium: Status: Acute Plan 61-year-old female with significant history of alcohol abuse, history of MRSA pneumonia, chronic right pleural effusion-admitted for altered mental status secondary to hepatic encephalopathy/sepsis encephalopathy secondary to staph bacteremia #Hepatic encephalopathy in patient with significant history of alcohol abuse -Takes at least 6 drinks of vodka every night-last drink more than 1 week prior to admission -Continue rifaximin 550 p.o. twice daily -Switched p.o. lactulose to SC lactulose every 6 hours as needed-6 bowel movements overnight-we will hold lactulose SC for now; ammonia down to 64 -Patient able to maintain airway saturating 93% on 1 L nasal cannula; ABG acceptable -No diaphoresis/tachycardia/unable to inquire about hallucinations as patient received sedation and was sleepy today morning less likely in withdrawal as last drink was > 1 week -Recommended to avoid benzodiazepines-can start on low-dose Precedex if patient is agitated -Expect her mentation will improve in the next 12 to 24 hours-meanwhile recommended close monitoring of her respiratory status-and should have low threshold for intubation -Continue multivitamin/folic acid/thiamine for alcohol abuse -Held her rosuvastatin 40 Mg p.o. daily -CT abdomen pelvis 07/07/2021 showed improvement in perihepatic fluid compared to 06/23/2021. Hepatic steatosis.No free fluid in the abdomen. Abdominal ultrasound nondiagnostic due to body habitus. #Encephalopathy can also be secondary to staph bacteremia/MRSA pneumonia #Patient has blisters on bilateral lower extremity versus pneumonia-being the source -Admission blood cultures on 07/07/2021-grew staph aureus/staph epidermidis/strep viridans -Currently patient is receiving Zosyn and linezolid -Repeat blood culture sent yesterday-2021-pending -Echo 07/08/2021: Reported technically difficult study with no parasternal windows-however reported normal LV size systolic function with EF 70 to 75% and no diagnostic regional wall motion abnormality. -No fever spikes and if repeat cultures are still positive-would recommend ANUPAMA to rule out vegetations #Significant hypokalemia secondary to diarrhea -K2.7-supplemented KCl 80 M EQ recheck BMP in the evening and supplement accordingly #Chronic right pleural effusion patient with history of COVID March 2020 and MRSA pneumonia August 2020 -S/p right thoracoscopy with lysis of adhesions and decortication and tube thoracostomy on 04/15/2021 at [facility] -As per CT surgery note evacuated 350 to 400 mL clear fluid and limited decortication was accomplished over the areas that were adhered with excellent reexpansion of the lung . -Chest tubes were removed on 04/21/2021 and she was discharged home on 04/22/2021. We do not have any culture or biopsy results.-We will obtain records -Abdominal pelvic CT 07/07/2021 this admission showed Small RIGHT pleural effusion with focal consolidation at the lung bases which is probably rounded atelectasis. Bedside Ultrasound examination showed small right pleural effusion difficult to tap; however it can be chronic pleural effusion & given her morbid obesity with small pleural effusion-currently decided not to tap #COPD/CAD s/p 2 stents/diastolic heart failure/morbid obesity #Chronic smoker 1 pack/day for 45 years-currently smoking half pack per day #Daily 6 shots of vodka for several years - [facility] 3-1 hospitalization-group D -PFTs 02/11/2022: The spirometry shows restrictive pattern.? Lung volumes suggestive of moderate restriction.? There is moderate gas transfer defect.? Constellation of findings consistent with moderate restrictive lung disease with gas transfer defect.? Possible coexisting extrathoracic restrictive lung disease due to morbid obesity and COPD causing gas transfer defect -Uses Incruse 1 puff daily and Advair 500-50 MCG 1 puff twice daily, albuterol as needed as outpatient -Placed on DuoNeb and Pulmicort scheduled nebulization while in hospital -Had soft blood pressures-held carvedilol 12.5 mg p.o. twice daily, lisinopril 20 mg p.o. daily, -Plavix held due to hematuria Hypothyroidism: Levothyroxine 25 MCG Synthyroid Diet: N.p.o. for now due to altered mental status and colonic ileus DVT prophylaxis: Heparin GI prophylaxis: Protonix Full code Next of kin: Significant other-updated about grave prognosis Hospitalist, RN, RT-recommendations were conveyed and recommended to closely follow-up for impending respiratory failure and to have low threshold for intu bation Attestations Medical Necessity Statement*: Needs continued hospitalization secondary to pneumonia requiring IV antibiotics, staph bacteremia, liver failure requiring close monitoring, further treatment of hepatic encephalopathy. Time Spent in Patient Care: Greater than 35 minutes (>than 50% of time spent in counselling and/or direct pt care on unit) . Critical Care Time: The high probability of a clinically significant, sudden or life threatening deterioration of the patient's [cardiovascular, GI, hepatic, renal, neurologic system(s) required my full and direct attention, intervention and personal management. The critical care time is as shown. 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 transplanted heart: [place] heart Associated angina: without angina History of alcohol abuse F10.11 Hypokalemia due to excessive gastrointestinal loss of potassium E87.6 Time Spent (min) 45
[2021-07-10 19:28] LABS: Blood Urea Nitrogen 15 mg/dL (8-23); Carbon Dioxide 27 mmol/L (22-29); Chloride 99 mmol/L (98-107); Glomerular Filtration Rate 63.4 mL/min (90-130); Glucose 86 mg/dL (65-115); Magnesium 2.2 mg/dL (1.7-2.3); Osmolality Calculated 288 mOsm/kg (285-295); Sodium 139 mmol/L (136-145)
[2021-07-10 19:32] LABS: Anion Gap 16.3 (5-19); Potassium 3.3 mmol/L (3.5-5.1)
[2021-07-10 21:03] LABS: Glucose Point of Care 75 mg/dL (70-110)
[2021-07-10] MEDS: morphine 4 mg/mL SDV 1 mL 2 MG IVP (21:49)
[2021-07-11] VITALS (41 sets, daily range): BP systolic 85–139; BP diastolic 41–85; PULSE 87–112; RESP 14–32; TEMP 36.3–36.6; O2SAT 89–100
[2021-07-11] MEDS: linezolid premix 600 MG/300 ML PREMIX 300 MG IV (02:22)
[2021-07-11] MEDS: piperacillin-tazobactam 3.375 GM in sodium chloride 0.9% (plus) 100 ML IV ×2 (02:22→18:08)
[2021-07-11] MEDS: heparin 5,000 unit/mL INJ 1 mL 5000 UNIT SUBCUT (02:23)
[2021-07-11] MEDS: morphine 4 mg/mL SDV 1 mL 2 MG IVP (02:42)
[2021-07-11] MEDS: ipratropium-albuterol 3 mL Neb INHALATION ×4 (03:08→21:51)
[2021-07-11 04:57] LABS: Basophils # 0.1 10^3/uL (0.0-0.1); Basophils % 0.4 %; Eosinophils # 0.3 10^3/uL (0.0-0.8); Eosinophils % 1.9 %; Hematocrit 35.5 % (37.0-47.0); Hemoglobin 12.5 g/dL (11.5-15.3); Lymphocytes # 2.1 10^3/uL (0.8-4.8); Lymphocytes % 15.1 %; Mean Corpuscular HGB Conc 35.2 g/dL (30.0-36.0); Mean Corpuscular Hemoglobin 33.2 pg (28.0-34.0); Mean Corpuscular Volume 94.2 fl (81-99); Mean Platelet Volume 11.8 fL (7.4-10.4); Monocytes # 1.2 10^3/uL (0.2-0.9); Monocytes % 8.7 %; Neutrophils % 73.5 %; Nucleated Red Blood Cells # 0.1 /100WBC; Nucleated Red Blood Cells % 0.4 %; Platelet Count 117 10^3/cmm (130-400); Red Blood Count 3.77 10^6/uL (4.1-5.3); Red Cell Distribution Width 20.9 % (12.1-15.1); White Blood Count 13.6 10^3/uL (4.0-10.0)
[2021-07-11 05:08] LABS: INR 1.96 (0.8-1.2)
[2021-07-11 05:21] LABS: Alanine Aminotransferase 16 U/L (0-33); Albumin Level 3.6 g/dL (3.5-5.2); Alkaline Phosphatase 113 IU/L (35-105); Anion Gap 15.2 (5-19); Aspartate Amino Transferase 35 U/L (0-32); Blood Urea Nitrogen 15 mg/dL (8-23); Calcium 9.4 mg/dL (8.5-10.5); Carbon Dioxide 28 mmol/L (22-29); Chloride 100 mmol/L (98-107); Globulin 2.4 g/dL (1.3-4.6); Glomerular Filtration Rate 56.2 mL/min (90-130); Glucose 98 mg/dL (65-115); Osmolality Calculated 291 mOsm/kg (285-295); Potassium 3.2 mmol/L (3.5-5.1); Sodium 140 mmol/L (136-145); Total Bilirubin 6.2 mg/dL (0.15-1.2)
[2021-07-11] MEDS: levothyroxine 25 mcg Tablet PO (06:25)
--- NOTE | 2021-07-11 07:54 | PM.PN ---
Subjective Subjective: Patient remains encephalopathic. Does briefly open her eyes and track when her name is called. Otherwise does not attempt to communicate verbally or nonverbally. Does not follow commands. She moans throughout most of the evaluation. She is given as needed morphine twice overnight. Remains on very low-dose Levophed. Discussed with RN, she continues to have loose bowel movements. Remains NPO. Mentation as noted above reportedly slightly better than yesterday's exam. Medications: Reviewed: Yes Vitals/I&O/Wt Last Vital Signs Temp 98.5 F 07/10/21 20:00 Pulse 92 07/11/21 06:00 Resp 21 H 07/11/21 06:00 BP 87/69 07/11/21 06:00 Pulse Ox 91 07/11/21 06:00 07/10/21 07/11/21 07/11/21 22:59 06:59 14:59 Intake Total 590.417 / 795.417 744.548 / 1539.965 0 / 0 Output Total 400 / 400 300 / 700 Balance 190.417 / 395.417 444.548 / 839.965 0 / 0 Weight last 48 hrs Weight 125.248 kg Weight 116.936 kg Physical Exam Narrative: General: Patient is encephalopathic. Does not follow commands. Head: Normocephalic. Atraumatic. NG tube. Cardiovascular: RRR. No gallops. No murmurs. Lower extremity edema present. Lungs: Breath sounds are diminished bilateral bases. No accessory muscle use. No crackles or wheezes. Skin: Mild jaundice. Right lower extremity is wrapped. Upper extremities are wrapped as well. Scabs on lower extremities present. Bruising present on upper extremities. Abdomen: Bowel sounds are present. Appears distended. Does not appear tender to palpation. Genito Urinary: Jacobo catheter with dark parker urine. Extremeties: No cyanosis or clubbing. Musculoskeletal: No swollen or erythematous joints. Neurological: Moves all 4 extremities. No myoclonus. Does not follow commands. Urinary Catheter Management: Jacobo: Cath Placed During This Visit: yes Reason for Continuing Indwelling Catheter: Accurate Measurement of Urinary Output in Critically Ill Patients Urinary Catheter Date of Insertion: 07/07/21 Urinary Catheter Time of Insertion: 09:05 Data : 07/11/21 04:31 07/11/21 04:31 Micro: Microbiology 07/07/21 08:25 Blood Culture - Preliminary Blood Staphylococcus sp coag neg Streptococcus viridans group Methicillin Resis Staph Aureus 07/07/21 09:40 Blood Culture - Preliminary Blood Methicillin Resis Staph Aureus Staphylococcus epidermidis Streptococcus viridans group 07/09/21 10:42 Blood Culture - Preliminary Blood NEGATIVE TO DATE 07/09/21 10:40 Blood Culture - Preliminary Blood NEGATIVE TO DATE A&P Assessment and plan (1) Septic shock: Secondary to bacteremia and pneumonia Initial blood cultures notable for MRSA, strep viridans, and staph epi. Suspect the latter 2 probably contamination. Vancomycin allergy noted. Continue Zosyn and linezolid. Repeat cultures from 511 remain negative. Transthoracic echocardiogram reviewed negative for signs of infective endocarditis. We will continue Levophed and attempt to wean today. Her map will be 65 mmHg. Status: Acute (2) Acute encephalopathy: Acute encephalopathy secondary to acute hepatic encephalopathy, acute infectious encephalopathy secondary to above, and acute metabolic encephalopathy. Mentation is slightly improved today. Continue treating underlying infection, correction of electrolytes, and continue lactulose. Discontinue morphine and Ativan. Avoid benzodiazepines. If opiate is needed, consider fentanyl or Dilaudid in the setting of severe liver dysfunction. Gabapentin is being held, there is a slight possibility that she is having withdrawal from this. We will continue holding this but if no significant improvement may restart at low-dose. Status: Acute (3) Hypokalemia due to excessive gastrointestinal loss of potassium: Secondary to diarrhea. Replacing with p.o. potassium. Anticipate ongoing replacement needs. Status: Acute (4) Transaminitis: Transaminitis as well as hyperbilirubinemia in the setting of alcohol abuse. Hepatitis panel is negative. This is likely secondary to alcoholic liver injury. Continuing thiamine daily. Continue IV albumin for now. Beta-fernanda on hold. Status: Acute (5) Pneumonia: Continue linezolid and Zosyn. Status: Acute (6) Leukocytosis: Likely reactive to infection, improving with IV antibiotics. SBP has not been ruled out. Continue to monitor. Status: Acute (7) CAD (coronary artery disease): Continue aspirin. Holding statin due to liver dysfunction. Plavix on hold due to hematuria which has now improved. Status: Chronic Qualifiers: Coronary Disease-Associated Artery/Lesion type: [place] artery [place] vs. transplanted heart: [place] heart Associated angina: without angina Qualified Code(s): I25.10 - Atherosclerotic heart disease of [place] coronary artery without angina pectoris (8) Chronic obstructive pulmonary disease, unspecified: She has adequate air movement on exam. She is at risk of not protecting her airway due to her mentation. She is being closely monitored in the ICU. We will continue with budesonide and duo nebs. Status: Chronic Qualifiers: COPD type: chronic bronchitis Chronic bronchitis type: unspecified Qualified Code(s): J42 - Unspecified chronic bronchitis (9) Thrombocytopenia: Platelets have been decreasing since admission. Remained above 100. Suspect this is more likely due to the liver dysfunction however if the trend continues we will need to take her off heparin products. Status: Acute (10) Coagulopathy: Liver induced. Continue monitoring INR. Status: Acute Plan Plan as noted above. In addition, critical care/pulmonary medicine is following, appreciate their recommendations today. Patient has been n.p.o. with NG tube. She is not received enteral nutrition since admission. If her mentation does not improve where she can start tolerating p.o. intake, will plan on initiating tube feeds within the next 24 hours. Attestations Medical Necessity Statement*: Patient is critically ill on vasopressor support in the intensive care unit requiring ongoing hospitalization. Critical Care Time: The high probability of a clinically significant, sudden or life threatening deterioration of the patient's neurological, liver, cardiovascular, circulatory system(s) required my full and direct attention, intervention and personal management. The critical care time is as shown. 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 transplanted heart: [place] heart Associated angina: without angina Chronic obstructive pulmonary disease, unspecified J42 COPD type: chronic bronchitis Chronic bronchitis type: unspecified Thrombocytopenia D69.6 Coagulopathy D68.9
[2021-07-11 08:16] LABS: Glucose Point of Care 83 mg/dL (70-110)
[2021-07-11] MEDS: budesonide 0.5 mg/2 mL Neb INHALATION ×2 (08:23→21:51)
[2021-07-11] MEDS: potassium chloride oral liq 20 mEq/15 mL UDC 40 MEQ PO (09:56)
[2021-07-11] MEDS: thiamine 100 mg Tablet PO (09:56)
[2021-07-11] MEDS: aspirin 81 mg EC Tablet PO (09:56)
[2021-07-11] MEDS: pantoprazole 40 mg SDV IVP ×2 (09:57→21:51)
--- NOTE | 2021-07-11 10:13 | PC.CHAP ---
Pastoral Care Encounter/Spiritual Assessment Type of Contact [] Declined waterproofing mixer visit [] Patient/Family/Request visit [] Outpatient visit [] Follow-up visit [] Physician referral [] Code/Alert [x] Routine visit [] Staff referral [] Actively dying [x] Patient sleeping [] Family support [] [] Out of room [] Palliative care [] [] Receiving care in room [] Pre-surgical visit [] Trauma [] Long length of stay [x] ICU visit [] Other: Relational/Emotional Strength [] Patient feels connected with others/family/visitors/staff [] Distress [] Loneliness/isolation [] Abandonment Spirituality of Patient [] Person of Eveline [] Attends Roman Catholic of their Eveline [] Believes in Prayer [] Reads Bible or Holiness materials [] There are Spiritual issues to be addressed Online Marketing Specialist Interventions [x] Prayer [] Active listening [] Non-anxious presence [] Spiritual/emotional support [] Crisis/trauma care [] Spiritual counseling [] Bereavement support [] Provided bereavement packet [] Provided Bible/devotional materials [] Provided toy/stuffed animal, coloring book to patient or family member [] Provided Communion [] Anointing/[place] [] Salvation [x] Completed spiritual assessment [] Other: Impact on Illness or Injury [] Angry [] Fearful [] Anxious [] Often cries [] Exhaustion [] Unable to work [] Unable to attend hinduism [] Unable to walk/stand [] Unable to read [] Unable to drive [] Unable to eat/drink [] Unable to sleep [] Unable to be with family [] Patient intubated [] Other: Summary Time spent with patient
--- NOTE | 2021-07-11 11:22 | PC.NURSE ---
Daughter, Susy, or [phone]
--- NOTE | 2021-07-11 12:27 | PC.NURSE ---
Patient oxygen levels dropping to 60% after pulling oxygen off, lungs course and with crackles and wheezing. Dr. Castanon called, ordered lasix drip. Notified about lasix drip.
[2021-07-11] MEDS: FUROsemide 100 MG in sodium chloride 0.9% 40 ML IV (12:48)
[2021-07-11 13:09] LABS: Glucose Point of Care 82 mg/dL (70-110)
--- NOTE | 2021-07-11 13:31 | XR_ITS ---
WS: [id number] XR chest 1V portable [id number] REASON FOR EXAM: SOB FINDINGS: The chest is unchanged compared to 07/08/2021. The heart is at the upper limits of normal in size. Nasogastric tube remains in position. Right pleural effusion. Reticular interstitial opacities and patchy groundglass opacities diffusely throughout both lungs. XR/XR chest 1V portable [id number] IMPRESSION: Stable abnormal chest most compatible with pulmonary edema.
[2021-07-11 13:42] LABS: ABG PCO2 47.8 mmHg (35-45); ABG PH Result 7.33 (7.35-7.45); Alveolar-Arterial Oxygen Gradi 27.2 mmHg (5-10); Arterial Blood Gas Hematocrit 42.4 % (37-47); Base Excess ABG -1.5 mmol/L (-2.0-2.0); Blood Gas Allen Test Pos; Blood Gas Operator Identificat GD; Blood Gas Sample Site Radial, right; Blood Gas Sample Type Arterial; Carboxyhemoglobin 2.3 %THgb (0.4-20.1); HGB O2 Sat 74.2 % (95-100); Ionized Calcium Level - ABG 1.2 mmol/L (1.1-1.4); Methemoglobin 0.8 % (0.4-1.5); Oxygen Device NC; Oxygen Saturation ABG 76.5; PO2 ABG 44.9 mmHg (80.0-100.0); Potassium Level - ABG 4.3 mmol/L (3.5-5.0); Total Hemoglobin 13.8 g/dL (12-16)
[2021-07-11] MEDS: midazolam 1 mg/mL INJ 2 mL 4 MG IVP (14:24)
[2021-07-11] MEDS: fentaNYL 50 mcg/mL INJ 2mL IVP (14:25)
[2021-07-11] MEDS: propofol 1,000 MG/100 ML INJ 11.27 MG IV (14:29)
--- NOTE | 2021-07-11 14:36 | PC.NURSE ---
Intubated at 1412 (see mar for medications) by Dr. Merrill, myself, and RT staff. No complications. Family was called prior to intubation for consent and notification.
--- NOTE | 2021-07-11 14:40 | XR_ITS ---
WS: [id number] XR chest 1V portable [id number] REASON FOR EXAM: central line, ett, OG tube FINDINGS: Endotracheal tube is been placed the tip is at the level of the aortic arch. A right internal jugular central venous line is been placed. The tip is at the junction of the left i nnominate vein and superior vena cava. Moderate amount of free air has developed under the right hemidiaphragm. In retrospect there may have been vague lucency under the right hemidiaphragm on the examination of 07/11/2021 at 1:40 PM. There m ay be additional lucency in the epigastric region representing free air. XR/XR chest 1V portable [id number] IMPRESSION: Properly positioned nasogastric tube with left internal jugular central venous line position as above. Large amount of free air in the abdomen indicates perforated hollow viscus. Dr. Garcia head seen in this acute abnormality earlier and called the patient's physician in-house.
--- NOTE | 2021-07-11 15:02 | CT_ITS ---
WS: [id number] CT ABDOMEN WITHOUT CONTRAST HISTORY: Bowel perforation Contiguous single phase 5 mm axial imaging performed to the abdomen. Oral contrast has not been provi ded. Coronal and sagittal reformats are submitted. All CT scans at [facility] use at least on e of these dose optimization techniques: automated exposure control; mA and/or kV adjustment per katina ent size (includes targeted exams where dose is matched to clinical indication); or iterative reconst ruction. CONTRAST: None DLP: 1035.16 mGy.cm COMPARISON: 07/07/2021 There is a large amount of intraperitoneal free air which has developed since 07/07/2021. On the business support administrator radiograph there is a large amount of air filling the colon and there is pneumatosis within the RIGHT and transverse colon which was not present on prior studies. Findings are consistent with an acute b owel perforation and ischemia. Marked dilatation of colon with air as seen on the business support administrator image from an ileus. Opacifications of the lung bases due to pneumonia or atelectasis. There is a very small RIGHT pleural effusion with RIGHT lower lobe consolidation which is atelectasis as seen on prior studies. There is a nasogastric tube present in the stomach. Patient is status post gastric bypass. There is a small amount of ascites throughout the abdomen and diffuse soft tissue anasarca. CT/CT abdomen wo con [id number] IMPRESSION: 1. Large amount of intraperitoneal free air. Bowel perforation has developed s tameka 07/07/2021. 2. Pneumatosis RIGHT and transverse colon consistent with ischemia. Notified Paola Merrill MD at 07/11/2021 4:08 PM.
--- NOTE | 2021-07-11 15:25 | PM.PN ---
Subjective Subjective: The patient was seen and examined. The patient did not have any improvement in her mental status. She was moaning and groaning, not able to communicate or follow commands. The patient was also hypoxemic. Her oxygen saturation was in the 80s with 6 L oxygen. After discussion with her life partner I had decided to proceed with intubation to control her airways, give her the time to get better from her hepatic encephalopathy/alcohol withdrawal, septic encephalopathy. Post intubation x-ray revealed large volume of free air under the right hemidiaphragm. This was followed by a CT scan of the abdomen which confirmed the presence of the free air consistent with perforation of the hollow viscus. There is also evidence of colonic ischemia. The patient is currently broadly covered with linezolid and Zosyn. Her white count has been coming down. Her latest blood culture from 07/09 is negative to date. Her previous blood culture has grown MRSA, staph epidermidis and strep viridans. Ultrasound of her chest before intubation revealed bilateral B-lines. Medications: Reviewed: Yes Vitals/I&O/Wt Last Vital Signs Temp 97.4 F L 07/11/21 12:59 Pulse 107 H 07/11/21 14:34 Resp 20 H 07/11/21 14:34 BP 102/85 07/11/21 12:00 Pulse Ox 100 07/11/21 14:34 07/11/21 07/11/21 07/11/21 06:59 14:59 22:59 Intake Total 744.548 / 1539.965 194.869 / 194.869 Output Total 300 / 700 Balance 444.548 / 839.965 194.869 / 194.869 Weight last 48 hrs Weight 276 lb 2 oz Weight 257 lb 12.8 oz Physical Exam Narrative: General: The patient is intubated and sedated Neck: Unable to assess Respiratory: Auscultation: Reduced breath sound bilaterally, occasional wheezing and rhonchi, crackles at the right lower lung base Cardiovascular: Tachycardia, regular rate and rhythm, S1-S2 present, no murmur, distant heart sound, mild peripheral edema. Abdomen: Distended, unable to assess tenderness, absent bowel sound Skin: Spontaneous disclamation with minimal friction, bandage wrapped around her upper and lower extremities Neuro: Intubated and sedated, unable to assess Urinary Catheter Management: Jacobo: Cath Placed During This Visit: yes Reason for Continuing Indwelling Catheter: Accurate Measurement of Urinary Output in Critically Ill Patients Urinary Catheter Date of Insertion: 07/07/21 Urinary Catheter Time of Insertion: 09:05 Data : 07/11/21 04:31 07/11/21 04:31 Micro: Microbiology 07/07/21 09:40 Blood Culture - Preliminary Blood Methicillin Resis Staph Aureus Staphylococcus epidermidis Streptococcus viridans group 07/07/21 08:25 Blood Culture - Preliminary Blood Staphylococcus sp coag neg Streptococcus viridans group Methicillin Resis Staph Aureus 07/09/21 10:42 Blood Culture - Preliminary Blood NEGATIVE TO DATE 07/09/21 10:40 Blood Culture - Preliminary Blood NEGATIVE TO DATE Other data: I have reviewed the patient's laboratory, microbiologic and radiology data. Her lactic acid level is 6.8. A&P Assessment and plan (1) Septic shock: This is a 61-year-old lady with multiple medical comorbidities now with septic shock. The etiology for the shock is perforated viscus in addition to prior bacteremia. The patient is currently on Levophed, hydrocortisone stress dose. She is broadly covered with Zosyn and Zyvox. Maintain MAP greater than 65 mmHg. Patient has DVT prophylaxis. She is on pantoprazole 40 mg twice a day. Status: Acute (2) Perforated viscus: The patient is undergoing evaluation by the surgical team for possible surgical intervention. Status: Acute (3) Hepatic encephalopathy: Unfortunately, the development of the perforated bowel will affect the overall management for hepatic encephalopathy. At this point, the patient will be kept n.p.o., Once the bowel perforation is taken care of, we will optimize the management of hepatic encephalopathy. Status: Acute (4) Alcoholic hepatitis: The patient is an active alcoholic. She has direct and indirect hyperbilirubinemia likely in the setting of alcoholic hepatitis. We will continue the supportive therapy. She has had previous cholecystectomy. There is no evidence of extrahepatic obstruction. Status: Acute (5) Acute and chronic respiratory failure with hypoxia: The patient has developed acute hypoxic respiratory failure in the setting of septic shock as well as likely MRSA pneumonia. She is intubated and mechanically ventilated. Currently the patient is on volume control mechanical ventilation with a tidal volume of 450, PEEP of 8, FiO2 of 50%. Ongoing to follow-up on the gram stain culture from the endotracheal tube aspirate. For now, she is broadly covered. Status: Acute (6) Lactic acidosis: The patient has developed lactic acidosis in the setting of septic shock. She will need a repeat level in 4 to 6 hours once she is out of the OR. Status: Acute (7) Acute kidney injury: I expect the patient to have acute kidney injury and ATN. Fortunately, her urine output is still good. We will continue the supportive therapy. Status: Acute (8) Pneumonia: The patient likely has MRSA pneumonia. Her blood cultures previously had grown MRSA, strep viridans and staph epidermidis. It is unclear whether the source of the other 2 bacteria. For now we will continue the broad-spectrum antibiotic. Repeat blood culture from 511 had been negative so far. Status: Acute (9) COPD (chronic obstructive pulmonary disease): Continue with the Pulmicort and DuoNeb nebulization. The patient is more than [id number] smoker. Status: Acute Attestations Medical Necessity Statement*: The patient is critically ill. I have explained to the family that she may not be able to leave the hospital. We will continue the supportive care. Coding Level of Care Code Acute First Responder for g Fwd Diagnoses Septic shock A41.9; R65.21 Perforated viscus R19.8 Hepatic encephalopathy K72.90 Alcoholic hepatitis K70.10 Acute and chronic respiratory failure with hypoxia J96.21 Lactic acidosis E87.2 Acute kidney injury N17.9 Pneumonia J18.9 COPD (chronic obstructive pulmonary disease) J44.9 Time Spent (min) 93 Comment Patient care, coordination of care, discussion with the family
--- NOTE | 2021-07-11 15:30 | PC.NURSE ---
Pt extubated . OG removed. Pt smiling and pleasant. 4lpm/NC.
[2021-07-11 15:34] LABS: Anion Gap 20.9 (5-19); Blood Urea Nitrogen 17 mg/dL (8-23); Calcium 9.6 mg/dL (8.5-10.5); Carbon Dioxide 23 mmol/L (22-29); Chloride 101 mmol/L (98-107); Glomerular Filtration Rate 50.3 mL/min (90-130); Glucose 53 mg/dL (65-115); Osmolality Calculated 291 mOsm/kg (285-295); Potassium 3.9 mmol/L (3.5-5.1); Sodium 141 mmol/L (136-145)
[2021-07-11 15:51] LABS: Basophils % 0.2 %; Eosinophils # 0.1 10^3/uL (0.0-0.8); Eosinophils % 1.3 %; Hematocrit 37.3 % (37.0-47.0); Hemoglobin 12.7 g/dL (11.5-15.3); Lymphocytes # 0.7 10^3/uL (0.8-4.8); Lymphocytes % 8.9 %; Mean Corpuscular Hemoglobin 32.7 pg (28.0-34.0); Mean Corpuscular Volume 96.1 fl (81-99); Mean Platelet Volume 11.7 fL (7.4-10.4); Monocytes # 0.4 10^3/uL (0.2-0.9); Monocytes % 5.3 %; Neutrophils # 6.95 10^3/uL (1.8-7.7); Neutrophils % 83.9 %; Nucleated Red Blood Cells # 0.1 /100WBC; Nucleated Red Blood Cells % 1.3 %; Platelet Count 121 10^3/cmm (130-400); Red Blood Count 3.88 10^6/uL (4.1-5.3); White Blood Count 8.3 10^3/uL (4.0-10.0)
[2021-07-11 16:00] LABS: Lactate (Lactic Acid level) 6.8 mmol/L (0.5-2.2)
[2021-07-11 16:46] LABS: ABG PCO2 38.8 mmHg (35-45); ABG PH Result 7.41 (7.35-7.45); Alveolar-Arterial Oxygen Gradi 30.2 mmHg (5-10); Arterial Blood Gas Hematocrit 40.1 % (37-47); Blood Gas Allen Test Pos; Blood Gas Operator Identificat MONRO; Blood Gas Sample Site ART LINE; Blood Gas Sample Type Arterial; HCO3 ABG 24.5 mmol/L (22-26); HGB O2 Sat 92.7 % (95-100); Ionized Calcium Level - ABG 1.1 mmol/L (1.1-1.4); Oxygen Device VENT; Oxygen Saturation ABG 95.5; PO2 ABG 73.8 mmHg (80.0-100.0); Potassium Level - ABG 3.7 mmol/L (3.5-5.0); Total Hemoglobin 13.1 g/dL (12-16)
[2021-07-11 16:55] LABS: Glucose Point of Care 51 mg/dL (70-110)
--- NOTE | 2021-07-11 17:09 | P.CONIM_ITS ---
Providers/Reason For Consult Consulting Physician/Specialty*: Dr. Jean Pierre Goodson/ General Surgery Reason for Consult*: Free intraabdominal air Attending Physician: Ezekiel Castanon MD Primary Care Provider: ISABELLE Browne History of Present Illness History of Present Illness Zenaida Madsen is a 61 year old female who is currently in the ICU being treated for alcoholic encephalopathy, pneumonia and bacteremia. She presented to the hospital with a GCS of 4 secondary to alcoholic encephalopathy. Metabolic encephalopathy secondary to infection may be contributing however. She is morbidly obese and status post gastric bypass. She is currently intubated with a GCS of 3T. She is not currently on any pressors, however her blood pressure is 90 over 40s. A chest x-ray identified a free subdiaphragmatic air and a CT confirmed free intraperitoneal air with pneumatosis of the right and transverse colon. For this general surgery was consulted. HPI and review of systems are limited secondary to the patient's intubated status. Review of Systems General: Reports: ROS unobtainable due to endotracheal tube Medications/Allergies Home Medications Medication Instructions Recorded Confirmed Last Taken Type lace up ankle brace #1 ea 09/28/19 07/07/21 Unknown Rx Wheelchair #1 each 11/16/19 07/07/21 Unknown Rx inogen system #1 ea 07/03/20 07/07/21 Unknown Rx albuterol sulfate 2.5 mg (3 mL) INHALATION Q4H PRN 01/21/21 07/07/21 Unknown Rx #75 ml albuterol sulfate 90 mcg/actuation 1 puff INHALATION Q6H PRN #8.5 g 01/21/21 07/07/21 Unknown Rx aerosol inhaler (Ventolin HFA) hydroxyzine HCl 50 mg tablet 50 mg PO BID PRN #60 tab 01/21/21 07/07/21 Unknown Rx rosuvastatin 40 mg tablet 40 mg PO BEDTIME@2200 #30 tab 01/21/21 07/07/21 Unknown Rx umeclidinium 62.5 mcg/actuation 1 inh INHALATION DAILY #30 ea 01/21/21 07/07/21 Unknown Rx blister powder for inhalation (Incruse Ellipta) cyclobenzaprine 10 mg tablet 10 mg PO TID PRN #90 tab 05/06/21 07/07/21 Unknown Rx honey 100 % topical paste 1 applic TOPICAL BID #103 ml 05/06/21 07/07/21 Unknown Rx (MediHoney (honey)) folic acid 1 mg tablet 1 mg PO DAILY 05/12/21 07/07/21 Unknown History CPAP machine and supplies #1 ea 06/05/21 07/07/21 Unknown Rx esomeprazole magnesium 20 mg 20 mg PO DAILY #30 cap 06/05/21 07/07/21 Unknown Rx capsule,delayed release (Nexium) ondansetron 4 mg disintegrating 4 mg PO TID PRN tab 06/05/21 07/07/21 Unknown History tablet carvedilol 25 mg tablet 12.5 mg PO BID 06/23/21 07/07/21 Unknown History furosemide 20 mg tablet 20 mg PO DAILY 06/23/21 07/07/21 Unknown History promethazine 25 mg tablet 25 mg PO Q6H PRN #20 tab 06/23/21 07/07/21 Unknown Rx sucralfate 1 gram tablet 1 g PO QID 06/23/21 07/07/21 Unknown History potassium chloride 20 mEq 20 meq PO DAILY #30 tab 07/01/21 07/07/21 Unknown Rx tablet,extended release clopidogrel 75 mg tablet 75 mg PO DAILY 07/07/21 07/07/21 Unknown History gabapentin 300 mg capsule 300 mg PO TID 07/07/21 07/07/21 Unknown History tramadol 50 mg tablet 50 mg PO Q4H PRN 07/07/21 07/07/21 Unknown History bupropion HCl 150 mg tablet,12 hr 150 mg PO Q12H #60 tab 07/08/21 Unknown Rx sustained-release (Wellbutrin SR) fluoxetine 40 mg capsule (Prozac) 40 mg PO BID #60 cap 07/08/21 Unknown Rx Allergies Allergy/AdvReac Type Severity Reaction Status Date / Time clindamycin Allergy uncontrollable Verified 06/19/21 13:08 vomiting vancomycin AdvReac Severe Unknown Verified 07/07/21 13:05 ciprofloxacin AdvReac Unknown ADR-Swelling Verified 06/19/21 13:08 of the Eye doxycycline AdvReac Unknown ADR-Vomitin Verified 06/19/21 13:08 g furosemide AdvReac Unknown Verified 06/19/21 13:08 Current Medications Generic Name Dose Route Start Last Admin Trade Name Freq PRN Reason Stop Dose Admin Albuterol/Ipratropium 3 ml 07/10/21 08:27 07/11/21 14:33 Ipratropium-Albuterol 3 Ml Neb INHALATION 3 ml Q6H DANYEL Administration Aspirin 81 mg 07/11/21 09:00 07/11/21 09:56 Aspirin 81 Mg Ec Tablet PO 81 mg DAILY DANYEL Administration Budesonide 0.5 mg 07/07/21 20:00 07/11/21 08:23 Budesonide 0.5 Mg/2 Ml Neb INHALATION 0.5 mg BID.RESPIRATORY DANYEL Administration Heparin Sodium (Porcine) 5,000 unit 07/09/21 14:45 07/11/21 16:57 Heparin 5,000 Unit/Ml Inj 1 Ml SUBCUT Not Given Q12H DANYEL Linezolid 600 mg in 300 mls @ 300 mls/hr 07/07/21 14:44 07/11/21 16:57 Zyvox Premix IV Not Given Q12H DANYEL Protocol Piperacillin Sod/Tazobactam 100 mls @ 25 mls/hr 07/08/21 18:30 07/11/21 12:33 Sod 3.375 gm/ Sodium Chloride IV Not Given Q8H [facility] Protocol Norepinephrine Bitartrate 4 mg 254 mls @ 0 mls/hr 07/09/21 19:15 07/11/21 17:08 / Dextrose IV 10 mcg/min .Q0M DANYEL 38.1 mls/hr Titration Protocol Per Protocol Propofol 1,000 mg in 100 mls @ 0 mls/hr 07/11/21 14:00 07/11/21 14:29 Diprivan IV 15 mcg/kg/min .Q0M DANYEL 11.27 mls/hr Administration Protocol Per Protocol Fentanyl 2,500 mcg/ Sodium 250 mls @ 0 mls/hr 07/11/21 14:00 07/11/21 14:26 Chloride IV 25 mcg/hr .Q0M DANYEL 2.5 mls/hr Administration Protocol Per Protocol Levothyroxine Sodium 25 mcg 07/08/21 06:00 07/11/21 06:25 Levothyroxine 25 Mcg Tablet PO 25 mcg QAM DANYEL Administration Thiamine Mononitrate 100 mg 07/08/21 09:00 07/11/21 09:56 Thiamine 100 Mg Tablet PO 100 mg DAILY DANYEL Administration PFSH Acute PFSH: Medical History Alcohol abuse Anxiety and depression CAD (coronary artery disease) has 2 stents Chronic obstructive pulmonary disease, unspecified Cigarette smoker COVID-19 (03/05/20) Essential (primary) hypertension Hepatic steatosis with hepatomegaly History of echocardiogram (03/06/20) Estimated EF 70%, normal diastolic function, normal pulmonary artery pressure, no valvular abnormality noted Intervertebral disc disorder with radiculopathy of lumbar region Low serum iron Mixed hyperlipidemia Morbid obesity BMI ~45 kg/m2 SVETLANA (obstructive sleep apnea) Osteoarthritis, chronic Personal history of nicotine dependence Slow transit constipation Urinary incontinence in female Vancomycin-induced nephrotoxicity (~06/2019) Vitamin D deficiency Surgical History H/O esophagogastroduodenoscopy (05/04/19) Status post gastric bypass with grade B esophagitis History of 2 sections History of cholecystectomy History of coronary artery stent placement History of gastric bypass History of hysterectomy History of left hip replacement History of right hip replacement S/P foot surgery, right 1) open trimalleolar fracture 05/2019 2) gangrene at operative site 06/2019 Status post colonoscopy with polypectomy (05/04/19) Descending colon polyp Family History Grandmother Hypertension Stroke Mother Hypertension Stroke Family/Other CAD (coronary artery disease) Denies family history of Diabetes Dementia Chronic kidney disease (CKD) Suicide Anesthesia complication Bleeding disorder Lung disease Cancer Social History Smoking and tobacco status: current every day smoker cigarettes Packs smoked per day: 0.5 Second hand smoke exposure: No Smoking risk assessment/counseling performed?: Yes Alcohol intake: current Alcohol intake frequency: 3 or more drinks per day Alcohol type: hard liquor Desire information about alcohol rehabilitation?: No Last alcohol use date: 06/16/19 Desire information about substance/drug rehabilitation?: No Counseling given: No Adopted: No Caregiver/support person: No Lives independently: Yes Household members: significant other Housing: House Marital status: Single Marital status details: Life partner Donny Nolen [phone] Number of children: 3 service: No Current occupational status: unemployed History of recent travel: No Current gender identity: Female Vitals/I&O/Wt Last Vital Signs Temp 97.4 F L 07/11/21 12:59 Pulse 107 H 07/11/21 15:00 Resp 20 H 07/11/21 14:34 BP 87/49 07/11/21 16:00 Pulse Ox 95 07/11/21 16:00 07/11/21 07/11/21 07/11/21 06:59 14:59 22:59 Intake Total 744.548 / 1539.965 211.252 / 211.252 69.342 / 280.594 Output Total 300 / 700 Balance 444.548 / 839.965 211.252 / 211.252 69.342 / 280.594 Weight last 48 hrs Weight 276 lb 2 oz Weight 257 lb 12.8 oz Physical Exam Narrative: General : Patient is well developed, morbidly obese, intubated Head : Normal cephalic, a-traumatic. Ears : TM's are without erythema or bulging, Pinnae and external canal are normal.? ? Eyes : PERRLA, Sclera and injection are normal. No conjunctival discharge. Nose : Mucous membranes are without erythema. Throat : buccal mucosa is normal, gums are without significant recession or hypertrophy. Lungs : Equal chest rise bilaterally, trachea is midline. Cor : tachycardic? No murmur, PMI is not laterally displaced. ? Abdomen : Soft, Distended, cannot assess tenderness, no guarding Extremities : No edema, no cyanosis or clubbing, dorsalis pedis pulses are present bilaterally, non-tender to palpation of calves.? Upper extremities are normal bilaterally. Neuro : No focal deficits Urinary Catheter Management: Jacobo: Cath Placed During This Visit: yes Reason for Continuing Indwelling Catheter: Accurate Measurement of Urinary Output in Critically Ill Patients Urinary Catheter Date of Insertion: 07/07/21 Urinary Catheter Time of Insertion: 09:05 Data : 07/11/21 15:32 07/11/21 15:06 Micro: Microbiology 07/07/21 09:40 Blood Culture - Preliminary Blood Methicillin Resis Staph Aureus Staphylococcus epidermidis Streptococcus viridans group 07/07/21 08:25 Blood Culture - Preliminary Blood Staphylococcus sp coag neg Streptococcus viridans group Methicillin Resis Staph Aureus CT Abd/Pel: My impression: Free air. Pneumotosis right and transverse colon A&P Assessment and plan (1) Pneumonia: Status: Acute (2) Lactic acidosis: Status: Acute (3) Acute and chronic respiratory failure with hypoxia: Status: Acute (4) Hepatic encephalopathy: Status: Acute (5) Perforated viscus: Status: Acute (6) History of alcohol abuse: Status: Acute (7) Multiorgan failure: Status: Acute (8) Bacteremia: Status: Acute Plan To OR for Exploratory Laparotomy The risks and benefits of the procedure, including but not limited to bleeding, infection, damage to surrounding structures, need for repeat surgery, , scar, numbness, pain, were explained to the patient's life partner and daughter, Susy. She has another daughter who is currently on a plane coming here and cannot be reached for consent. I made it very clear that the patient's prognosis is very poor. There is a very high risk of . The life-partner and daughter are well aware of this and want to proceed with all life-saving measures. All questions were answered to the best of my ability. Coding Level of Care Code Acute Third Rail Installer for Michael Pool Medical Decision Making Moderate Complexity Diagnoses Pneumonia J18.9 Lactic acidosis E87.2 Acute and chronic respiratory failure with hypoxia J96.21 Hepatic encephalopathy K72.90 Perforated viscus R19.8 History of alcohol abuse F10.11 Multiorgan failure Bacteremia R78.81
--- NOTE | 2021-07-11 17:09 | PM.ACPR ---
Procedure/Consent Time out: Time Out Performed: Yes Consent: Additional Consent Information: Verbal consent obtained from her life partner over the phone Procedure Narrative: Name of the procedure: Endotracheal intubation. Indication: Hypoxic respiratory failure, airway protection Medications: Versed 2 mg, fentanyl 50 mcg, etomidate 10 mg Procedure: The patient was positioned optimally. The patient was oxygenated with 100% oxygen with nonrebreather mask. After appropriate medications were given, the glidescope blade was introduced and advanced till vocal cords were visualized. Inspissated secretion was noted in the oropharynx and over the vocal cords.the endotracheal tube was advanced through the vocal cords under direct visualization. There was fogging of the ET tube, positive change in end-tidal CO2 monitor, bilateral chest rise, bilateral positive breath sound. The ET tube was secured at 22 cm at the lips. Complications: There was no immediate complications. Chest x-ray: The chest x-ray revealed good positioning of the endotracheal tube. However, free air was noted under the right hemidiaphragm. Acute Procedures Epistaxis Control: Time out performed: Yes
--- NOTE | 2021-07-11 17:13 | PM.ACPR ---
Procedure/Consent Time out: Time Out Performed: Yes Consent: Additional Consent Information: Obtained verbally from flight partner over the phone. Procedure Narrative: Name of the Procedure: Left Internal Jugular Central venous catheter placement under ultrasound guidance. Indication: Frequent blood work and possible need for vasopressor Anesthesiia: Lidocaine 1%, 5 ml Description of the procedure: The left IJ vein was identified with the Ultrasound from collapsibility and lack of pulsatility. The site was prepared using sterile technique. The skin and subcuteneous tissue was anesthetized using lidocaine. The introducer needle was advanced under US guidance till flash back was noted. Dark, non pulsatile blood noted. Using seldinger technique the CVC was put in.Blood return was noted in all ports. Catheter was secured with suture and covered with transparent dressing. Complications: None X-ray: Free air under the right Bogdan diaphragm. Acute Procedures Epistaxis Control: Time out performed: Yes
--- NOTE | 2021-07-11 17:16 | P.PCN_ITS ---
Procedure/Consent Time out: Time Out Performed: Yes Consent: Additional Consent Information: Emergent procedure Procedure Narrative: Name of the procedure: Right axillary arterial line place ment. Anesthesia: Patient is intubated and sedated. Local anesthesia was provided by 1% lidocaine. Description of the procedure: The site was prepared using sterile technique. The right axillary artery was identified under ultrasound guidance from pulsatility. Under ultrasound guidance the introducer needle was advanced till flash back was noted. Using Seldinger technique the right axillary arterial line was inserted. The catheter was secured with 2-0 silk suture and Tegaderm. Complications: None. Acute Procedures Epistaxis Control: Time out performed: Yes
[2021-07-11] MEDS: dextrose 5%-sod chloride 0.45% 1,000 ML 75 ML IV (17:49)
[2021-07-11] MEDS: hydrocortisone 100 mg/2 mL SDV 50 MG IVP ×2 (17:49→23:39)
--- NOTE | 2021-07-11 17:49 | ANES.PREANE2 ---
Pre-Anesthetic Assessment Height/Weight: Height 1.63 m Weight 125.248 kg Temp Pulse Resp BP Pulse Ox 97.4 F L 107 H 20 H 87/49 95 07/11/21 12:59 07/11/21 15:00 07/11/21 14:34 07/11/21 16:00 07/11/21 16:00 Preop Diagnosis: grade 3a open bi malleolar ankle fracture Operation Date: 07/11/21 19:00 Proposed Procedures p Exploratory Laparotomy(Not Applicable) - Jean Pierre Goodson DO Familial anesthetic complications: None Was Beta Miles taken within 24 hours: N/A Was Clonidine taken within 24 hours: N/A Social Alcohol and Tobacco Exam Intubated/sedated in ICU, one pressor (norepi)--relatively stable Airway Comments: Comments: ETT Pulmonary Chronic Obstructive Pulmonary Disease and Sleep Apnea Recent VATs, pneumonia CV/HEM Coronary Artery Disease (stents) and Hypertension anemia, coagulopathic ARF Hepatic Hepatitis Metabolic Morbid Obesity Neuropsych Anxiety and Depression Anesthetic Plan ASA status: 4E Anesthesia: General Other: A.line, CVL Medications/Allergies Home Medications Medication Instructions Recorded Confirmed Last Taken Type lace up ankle brace #1 ea 09/28/19 07/07/21 Unknown Rx Wheelchair #1 each 11/16/19 07/07/21 Unknown Rx inogen system #1 ea 07/03/20 07/07/21 Unknown Rx albuterol sulfate 2.5 mg (3 mL) INHALATION Q4H PRN 01/21/21 07/07/21 Unknown Rx #75 ml albuterol sulfate 90 mcg/actuation 1 puff INHALATION Q6H PRN #8.5 g 01/21/21 07/07/21 Unknown Rx aerosol inhaler (Ventolin HFA) hydroxyzine HCl 50 mg tablet 50 mg PO BID PRN #60 tab 01/21/21 07/07/21 Unknown Rx rosuvastatin 40 mg tablet 40 mg PO BEDTIME@2200 #30 tab 01/21/21 07/07/21 Unknown Rx umeclidinium 62.5 mcg/actuation 1 inh INHALATION DAILY #30 ea 01/21/21 07/07/21 Unknown Rx blister powder for inhalation (Incruse Ellipta) cyclobenzaprine 10 mg tablet 10 mg PO TID PRN #90 tab 05/06/21 07/07/21 Unknown Rx honey 100 % topical paste 1 applic TOPICAL BID #103 ml 05/06/21 07/07/21 Unknown Rx (AlexanderHoney (honey)) folic acid 1 mg tablet 1 mg PO DAILY 05/12/21 07/07/21 Unknown History CPAP machine and supplies #1 ea 06/05/21 07/07/21 Unknown Rx esomeprazole magnesium 20 mg 20 mg PO DAILY #30 cap 06/05/21 07/07/21 Unknown Rx capsule,delayed release (Nexium) ondansetron 4 mg disintegrating 4 mg PO TID PRN tab 06/05/21 07/07/21 Unknown History tablet carvedilol 25 mg tablet 12.5 mg PO BID 06/23/21 07/07/21 Unknown History furosemide 20 mg tablet 20 mg PO DAILY 06/23/21 07/07/21 Unknown History promethazine 25 mg tablet 25 mg PO Q6H PRN #20 tab 06/23/21 07/07/21 Unknown Rx sucralfate 1 gram tablet 1 g PO QID 06/23/21 07/07/21 Unknown History potassium chloride 20 mEq 20 meq PO DAILY #30 tab 07/01/21 07/07/21 Unknown Rx tablet,extended release clopidogrel 75 mg tablet 75 mg PO DAILY 07/07/21 07/07/21 Unknown History gabapentin 300 mg capsule 300 mg PO TID 07/07/21 07/07/21 Unknown History tramadol 50 mg tablet 50 mg PO Q4H PRN 07/07/21 07/07/21 Unknown History bupropion HCl 150 mg tablet,12 hr 150 mg PO Q12H #60 tab 07/08/21 Unknown Rx sustained-release (Wellbutrin SR) fluoxetine 40 mg capsule (Prozac) 40 mg PO BID #60 cap 07/08/21 Unknown Rx Allergies Allergy/AdvReac Type Severity Reaction Status Date / Time clindamycin Allergy uncontrollable Verified 06/19/21 13:08 vomiting vancomycin AdvReac Severe Unknown Verified 07/07/21 13:05 ciprofloxacin AdvReac Unknown ADR-Swelling Verified 06/19/21 13:08 of the Eye doxycycline AdvReac Unknown ADR-Vomitin Verified 06/19/21 13:08 g furosemide AdvReac Unknown Verified 06/19/21 13:08 Current Medications Generic Name Dose Route Start Last Admin Trade Name Freq PRN Reason Stop Dose Admin Albuterol/Ipratropium 3 ml 07/10/21 08:27 07/11/21 14:33 Ipratropium-Albuterol 3 Ml Neb INHALATION 3 ml Q6H DANYEL Administration Aspirin 81 mg 07/11/21 09:00 07/11/21 09:56 Aspirin 81 Mg Ec Tablet PO 81 mg DAILY DANYEL Administration Budesonide 0.5 mg 07/07/21 20:00 07/11/21 08:23 Budesonide 0.5 Mg/2 Ml Neb INHALATION 0.5 mg BID.RESPIRATORY DANYEL Administration Heparin Sodium (Porcine) 5,000 unit 07/09/21 14:45 07/11/21 16:57 Heparin 5,000 Unit/Ml Inj 1 Ml SUBCUT Not Given Q12H DANYEL Linezolid 600 mg in 300 mls @ 300 mls/hr 07/07/21 14:44 07/11/21 16:57 Zyvox Premix IV Not Given Q12H [facility] Protocol Piperacillin Sod/Tazobactam 100 mls @ 25 mls/hr 07/08/21 18:30 07/11/21 12:33 Sod 3.375 gm/ Sodium Chloride IV Not Given Q8H [facility] Protocol Norepinephrine Bitartrate 4 mg 254 mls @ 0 mls/hr 07/09/21 19:15 07/11/21 17:08 / Dextrose IV 10 mcg/min .Q0M DANYEL 38.1 mls/hr Titration Protocol Per Protocol Propofol 1,000 mg in 100 mls @ 0 mls/hr 07/11/21 14:00 07/11/21 14:29 Diprivan IV 15 mcg/kg/min .Q0M DANYEL 11.27 mls/hr Administration Protocol Per Protocol Fentanyl 2,500 mcg/ Sodium 250 mls @ 0 mls/hr 07/11/21 14:00 07/11/21 14:26 Chloride IV 25 mcg/hr .Q0M DANYEL 2.5 mls/hr Administration Protocol Per Protocol Levothyroxine Sodium 25 mcg 07/08/21 06:00 07/11/21 06:25 Levothyroxine 25 Mcg Tablet PO 25 mcg QAM DANYEL Administration Thiamine Mononitrate 100 mg 07/08/21 09:00 07/11/21 09:56 Thiamine 100 Mg Tablet PO 100 mg DAILY DANYEL Administration [facility] Anesthesia Medical History Alcohol abuse Anxiety and depression CAD (coronary artery disease) has 2 stents Chronic obstructive pulmonary disease, unspecified Cigarette smoker COVID-19 (03/05/20) Essential (primary) hypertension Hepatic steatosis with hepatomegaly History of echocardiogram (03/06/20) Estimated EF 70%, normal diastolic function, normal pulmonary artery pressure, no valvular abnormality noted Intervertebral disc disorder with radiculopathy of lumbar region Low serum iron Mixed hyperlipidemia Morbid obesity BMI ~45 kg/m2 SVETLANA (obstructive sleep apnea) Osteoarthritis, chronic Personal history of nicotine dependence Slow transit constipation Urinary incontinence in female Vancomycin-induced nephrotoxicity (~06/2019) Vitamin D deficiency Surgical History H/O esophagogastroduodenoscopy (05/04/19) Status post gastric bypass with grade B esophagitis History of 2 sections History of cholecystectomy History of coronary artery stent placement History of gastric bypass History of hysterectomy History of left hip replacement History of right hip replacement S/P foot surgery, right 1) open trimalleolar fracture 05/2019 2) gangrene at operative site 06/2019 Status post colonoscopy with polypectomy (05/04/19) Descending colon polyp Family History Grandmother Hypertension Stroke Mother Hypertension Stroke Family/Other CAD (coronary artery disease) Denies family history of Diabetes Dementia Chronic kidney disease (CKD) Suicide Anesthesia complication Bleeding disorder Lung disease Cancer Social History Smoking and tobacco status: current every day smoker cigarettes Packs smoked per day: 0.5 Second hand smoke exposure: No Smoking risk assessment/counseling performed?: Yes Alcohol intake: current Alcohol intake frequency: 3 or more drinks per day Alcohol type: hard liquor Desire information about alcohol rehabilitation?: No Last alcohol use date: 06/16/19 Desire information about substance/drug rehabilitation?: No Counseling given: No Adopted: No Caregiver/support person: No Lives independently: Yes Household members: significant other Housing: House Marital status: Single Marital status details: Life partner Donny Nolen [phone] Number of children: 3 service: No Current occupational status: unemployed History of recent travel: No Current gender identity: Female Data Anesthesia : 07/11/21 15:32 07/11/21 15:06 Short CBC 07/10/21 07/11/21 07/11/21 Range/Units 07:17 04:31 15:32 WBC 15.3 H 13.6 H 8.3 (4.0-10.0) 10^3/uL Hgb 13.4 12.5 12.7 (11.5-15.3) g/dL Hct 38.5 35.5 L 37.3 (37.0-47.0) % MCV 95.3 94.2 96.1 (81-99) fl Plt Count 146 117 L 121 L (130-400) 10^3/cmm Neut % (Auto) 81.2 73.5 83.9 % Neut # (Auto) 12.40 H 10.00 H 6.95 (1.8-7.7) 10^3/uL BMP 07/10/21 07/10/21 07/11/21 07:17 18:42 04:31 Sodium 142 139 140 Potassium 2.7 L* 3.3 L 3.2 L Chloride 102 99 100 Carbon Dioxide 28 27 28 BUN 14 15 15 Creatinine 1.0 H 0.9 1.0 H Glucose 95 86 98 Calcium 9.2 9.0 9.4 07/11/21 15:06 Sodium 141 Potassium 3.9 Chloride 101 Carbon Dioxide 23 BUN 17 Creatinine 1.1 H Glucose 53 L Calcium 9.6 Liver Function 07/10/21 07/11/21 Range/Units 07:17 04:31 Total Bilirubin 5.4 H 6.2 H (0.15-1.2) mg/dL AST 49 H 35 H (0-32) U/L ALT 20 16 (0-33) U/L Alkaline Phosphatase 143 H 113 H (35-105) IU/L Albumin 3.1 L 3.6 (3.5-5.2) g/dL Coags 07/10/21 07/10/21 07/11/21 07:17 07:17 04:31 PT Cancelled 22.00 H 22.70 H INR Cancelled 1.88 H 1.96 H APTT 40.7 H Fibrinogen 240 Fibrin Degrad Products Neg, <10 D-Dimer 3.53 H ABG 0507/11/21 07/11/21 06:00 13:28 16:34 Specimen Type Arterial Arterial Arterial Sample Site Brachial, right Radial, right Art line ABG pH 7.45 7.33 L 7.41 ABG pCO2 42.5 47.8 H 38.8 ABG pO2 75.9 L 44.9 L 73.8 L ABG HCO3 29.7 H 25.0 24.5 ABG O2 Saturation 95.7 76.5 95.5 ABG Base Excess 5.1 H -1.5 0.0 A-a O2 Gradient 2.8 L 27.2 H 30.2 H O2 Delivery Device Nc Nc Vent O2 Liters/Min 4.0 6.0 FiO2 44.0 50.0 Tidal Volume 0.40 PEEP 8.0 Microbiology 07/07/21 09:40 Blood Culture - Preliminary Blood Methicillin Resis Staph Aureus Staphylococcus epidermidis Streptococcus viridans group 07/07/21 08:25 Blood Culture - Preliminary Blood Staphylococcus sp coag neg Streptococcus viridans group Methicillin Resis Staph Aureus Cardiac Studies: Echocardiogram 07/08/21 Echocardiogram Ultrasound 03/06/20 Sestamibi Stress Test (Cardiology) 10/10/20
[2021-07-11 18:01] LABS: Glucose Point of Care 85 mg/dL (70-110)
--- NOTE | 2021-07-11 18:32 | PC.NURSE ---
To OR at 1620. Family notified.
--- NOTE | 2021-07-11 18:56 | PC.NURSE ---
Bedside report completed with HAIM Alaniz
--- NOTE | 2021-07-11 19:01 | PC.NURSE ---
spoke with patient's life partner Ray and gave him an update.
[2021-07-11 19:35] LABS: ABG PCO2 41.1 mmHg (35-45); ABG PH Result 7.34 (7.35-7.45); Arterial Blood Gas Hematocrit 27.8 % (37-47); Base Excess ABG -3.3 mmol/L (-2.0-2.0); Blood Gas Operator Identificat glc; Blood Gas Sample Type Arterial; HCO3 ABG 22.3 mmol/L (22-26); HGB O2 Sat 94.5 % (95-100); Ionized Calcium Level - ABG 1.2 mmol/L (1.1-1.4); Methemoglobin 1.2 % (0.4-1.5); Oxygen Saturation ABG 97.7; PO2 ABG 93.8 mmHg (80.0-100.0); Potassium Level - ABG 3.5 mmol/L (3.5-5.0); Total Hemoglobin 9.1 g/dL (12-16)
[2021-07-11 19:36] LABS: Alveolar-Arterial Oxygen Gradi 27.2 mmHg (5-10); Oxygen Device VENT
[2021-07-11 19:44] LABS: Blood Gas Sample Site Not specified
[2021-07-11] MEDS: tranexamic acid 1,000 mg/10mL SDV 1000 MG IV ×2 (19:45→21:00)
[2021-07-11 20:11] LABS: INR 1.72 (0.8-1.2); Partial Thromboplastin Time 41.3 SECONDS (23.9-36.7)
--- NOTE | 2021-07-11 20:28 | PC.NURSE ---
spoke with patient's life partner Ray and gave update. ZINA
--- NOTE | 2021-07-11 21:37 | PM.OP ---
Operative Report Date of procedure: July 11, 2021 Pre-op diagnosis: Preop Diagnosis Perforated Viscus, Multiorgan failure Post-op diagnosis: Perforated transverse colon Procedure done: Exploratory laparotomy with transverse colon resection. Colon left in discontinuity with plans for a second look laparotomy in 24-48 hours. Specimens removed/disposition: transverse colon Surgeon: Jean Pierre Goodson D.O. Estimated blood loss: 3 L Urine output: 100 cc Complications: none apparent Condition: critical Disposition: ICU Brief History: This is a very ill 61-year-old female, with multiorgan failure, bacteremia and pneumonia, intubated and on vasopressors, who was found to have free air in in her abdomen by CT. Exploratory laparotomy was indictated. The risks and benefits of the procedure, including but not limited to, bleeding, infection, damage to surrounding structures, scar, numbness, pain, , were explained to the patient's life partner and daughter. I explained to them that she has a very poor prognosis, and they want to proceed with surgery for a chance at survival. They are understanding of the risks and wished to proceed. Procedure: The abdomen was inspected prepped and draped in usual sterile fashion. General endotracheal intubation was already present from the ICU. General anesthesia was performed by the department of anesthesia. A timeout was performed and all present were in agreement. A 10 blade scalpel was used to make a midline laparotomy. Bovie cautery was then used to dissect down to the fascia. The peritoneum was entered bluntly just suprapubically. There were extensive adhesions from her multiple previous surgeries. Meticulous blunt and sharp dissection was performed while extending the fascial incision proximally and distally. There was a gush of air immediately upon entry into the peritoneum. There was a perforation of the transverse colon that was evident. It was not immediately clear whether or not this was secondary to entry and from adhesions or the perforation of interest. The patient had extensive oozing from any surfaces. Her INR was almost 2 preoperatively, FFP was started just prior to incision and 4 units were ultimately given. There were multiple bleeding sites of the omentum which were cauterized, however there was still oozing from many surfaces that was difficult to control. She had a total of 3 units of blood loss. 2 units of PRBCs were given as well as 4 of FFP and Kcentra. 2 more units of PRBCs and platelets were ordered postoperatively. I then explored the abdomen. I did not find any other source of perforation that was evident. I did not find a marginal ulcer. Due to the patient's coagulopathy and extensive oozing, decision was made to excise the affected portion of transverse colon and leave her in discontinuity to come back for second look laparotomy in 24 to 48 hours. The CLARA with blue load was used to transect the transverse colon proximally and distally to the perforation. The specimen was passed off. The abdomen was irrigated and suctioned. There was still extensive oozing throughout the abdomen, however this had slowed markedly. Two 19 [place] drains were placed into the abdomen. 1 drain was placed coming out of the right abdomen and going up over the transverse colon and one was placed into the left abdomen going down into the pelvis. The fascia was then closed using #1 PDS in a running fashion. The skin was left open and a wound VAC with a black sponge was placed over the fascial closure. Prognosis is poor. I spoke with the patient's life partner as well as both daughters postoperatively. They are aware of her prognosis and are voicing that they do not think she would like CPR if her heart feels, but they would like more time to think about it. We will optimize her as best we can medically and come back in 24 to 48 hours for a second look laparotomy.
[2021-07-11 21:44] LABS: Glucose Point of Care 116 mg/dL (70-110)
[2021-07-11] MEDS: sodium chloride 0.9% (100 ml) 100 ML ×3 (23:34→23:36)
[2021-07-12] VITALS (98 sets, daily range): BP systolic 88–119; BP diastolic 53–78; PULSE 88–100; RESP 16–22; TEMP 36.2–36.6; O2SAT 90–100
[2021-07-12 01:56] LABS: Glucose Point of Care 109 mg/dL (70-110)
[2021-07-12] MEDS: piperacillin-tazobactam 3.375 GM in sodium chloride 0.9% (plus) 100 ML IV ×3 (02:44→17:31)
[2021-07-12] MEDS: linezolid premix 600 MG/300 ML PREMIX 300 MG IV ×2 (02:48→14:42)
[2021-07-12] MEDS: ipratropium-albuterol 3 mL Neb INHALATION ×4 (04:00→20:02)
--- NOTE | 2021-07-12 04:00 | XRR_ITS ---
PROCEDURE INFORMATION: Exam: XR Chest Exam date and time: 07/12/2021 4:57 AM Age: 61 years old Clinical indication: Shortness of breath; Prior surgery; Surgery date: Post-operative (0-2 days); Surgery type: Transverse colon resection on 07/11/2021. Gb. Gastric bypass; Patient HX: F/u for resp failure. Intubated with central line. ; Additional info: Respiratory failure TECHNIQUE: Imaging protocol: XR of the chest. Views: 1 view. COMPARISON: CR XR chest 1V portable [id number] 07/11/2021 2:47 PM FINDINGS: Tubes, catheters and devices: Endotracheal tube projects above the level of the floyd. Left IJ approach catheter tip projects over the SVC. Lungs: Diffuse bilateral pulmonary opacities and pleural effusions, increased. Pleural spaces: See Lungs finding. Heart/Mediastinum: Cardiomegaly. Bones/joints: No acute fracture. XR/XR chest 1V portable [id number] IMPRESSION: Diffuse bilateral pulmonary opacities and pleural effusions, increased. Findings may be seen with pulmonary edema or pneumonia.
[2021-07-12 05:05] LABS: ABG PCO2 40.8 mmHg (35-45); ABG PH Result 7.28 (7.35-7.45); Alveolar-Arterial Oxygen Gradi 20.5 mmHg (5-10); Arterial Blood Gas Hematocrit 32.4 % (37-47); Base Excess ABG -6.9 mmol/L (-2.0-2.0); Blood Gas Operator Identificat JB; Blood Gas Sample Site Not specified; Blood Gas Sample Type Arterial; Carboxyhemoglobin 3.2 %THgb (0.4-20.1); HCO3 ABG 19.4 mmol/L (22-26); HGB O2 Sat 91.4 % (95-100); Ionized Calcium Level - ABG 1.2 mmol/L (1.1-1.4); Methemoglobin 1.5 % (0.4-1.5); Oxygen Device VENT; PO2 ABG 75.5 mmHg (80.0-100.0); Potassium Level - ABG 3.7 mmol/L (3.5-5.0); Total Hemoglobin 10.6 g/dL (12-16)
[2021-07-12] MEDS: hydrocortisone 100 mg/2 mL SDV 50 MG IVP ×4 (05:20→22:33)
[2021-07-12 05:36] LABS: Basophils % 0.3 %; Eosinophils % 0.1 %; Hematocrit 31.1 % (37.0-47.0); Hemoglobin 10.3 g/dL (11.5-15.3); Lymphocytes # 1.5 10^3/uL (0.8-4.8); Lymphocytes % 14.1 %; Mean Corpuscular HGB Conc 33.1 g/dL (30.0-36.0); Mean Corpuscular Hemoglobin 31.1 pg (28.0-34.0); Mean Platelet Volume 11.6 fL (7.4-10.4); Monocytes # 0.9 10^3/uL (0.2-0.9); Monocytes % 9.2 %; Neutrophils # 7.79 10^3/uL (1.8-7.7); Neutrophils % 75.9 %; Nucleated Red Blood Cells % 0.3 %; Platelet Count 102 10^3/cmm (130-400); Red Blood Count 3.31 10^6/uL (4.1-5.3); Red Cell Distribution Width 17.9 % (12.1-15.1); White Blood Count 10.3 10^3/uL (4.0-10.0)
[2021-07-12 05:47] LABS: INR 1.38 (0.8-1.2)
[2021-07-12 05:58] LABS: Alanine Aminotransferase 15 U/L (0-33); Albumin Level 3.1 g/dL (3.5-5.2); Alkaline Phosphatase 72 IU/L (35-105); Anion Gap 24.8 (5-19); Aspartate Amino Transferase 39 U/L (0-32); Blood Urea Nitrogen 17 mg/dL (8-23); Calcium 9.1 mg/dL (8.5-10.5); Carbon Dioxide 19 mmol/L (22-29); Chloride 100 mmol/L (98-107); Globulin 2.1 g/dL (1.3-4.6); Glomerular Filtration Rate 45.5 mL/min (90-130); Glucose 136 mg/dL (65-115); Osmolality Calculated 294 mOsm/kg (285-295); Phosphorus 3.8 mg/dL (2.5-4.5); Potassium 3.8 mmol/L (3.5-5.1); Sodium 140 mmol/L (136-145); Total Protein 5.2 g/dL (6.6-8.7)
[2021-07-12 05:59] LABS: Procalcitonin 2.16 ng/mL (0-0.5)
[2021-07-12 06:01] LABS: Total Bilirubin 9.7 mg/dL (0.15-1.2)
[2021-07-12 06:27] LABS: Slide Review Slide Review Perform
[2021-07-12] MEDS: dextrose 5%-sod chloride 0.45% 1,000 ML 75 ML IV (06:53)
[2021-07-12] MEDS: propofol 1,000 MG/100 ML INJ 11.27 MG IV ×2 (06:54→16:39)
[2021-07-12] MEDS: budesonide 0.5 mg/2 mL Neb INHALATION ×2 (08:21→20:02)
--- NOTE | 2021-07-12 08:21 | PM.PN ---
Subjective Subjective: Patient remains intubated/sedated, on 14 mcg Fentanyl. No acute events overnight. Vitals/I&O/Wt Last Vital Signs Temp 97.8 F 07/12/21 07:45 Pulse 96 07/12/21 08:00 Resp 17 07/12/21 05:00 BP 96/60 07/12/21 08:00 Pulse Ox 97 07/12/21 08:00 07/11/21 07/12/21 07/12/21 22:59 06:59 14:59 Intake Total 2597.178 / 2808.430 3091.266 / 5899.696 Output Total 150 / 150 725 / 875 Balance 2447.178 / 2658.430 2366.266 / 5024.696 Weight last 48 hrs Weight 268 lb 15.423 oz Weight 276 lb 2 oz Physical Exam Narrative: Gen: NAD, intubated/sedated Abd: S, ND, no grimace to palpation- although intubated and sedated, no guarding Drains: Serosanguinous Urinary Catheter Management: Jacobo: Cath Placed During This Visit: yes Reason for Continuing Indwelling Catheter: Accurate Measurement of Urinary Output in Critically Ill Patients Urinary Catheter Date of Insertion: 07/07/21 Urinary Catheter Time of Insertion: 09:05 Data : 07/12/21 05:00 07/12/21 05:00 Micro: Microbiology 07/11/21 14:15 Gram Stain - Final Sputum - Endotracheal Tube Aspirate 07/07/21 09:40 Blood Culture - Preliminary Blood Methicillin Resis Staph Aureus Staphylococcus epidermidis Streptococcus viridans group A&P Assessment and plan (1) Bacteremia: Status: Acute (2) Multiorgan failure: Status: Acute (3) Pneumonia: Status: Acute (4) Lactic acidosis: Status: Acute (5) Acute and chronic respiratory failure with hypoxia: Status: Acute (6) Hepatic encephalopathy: Status: Acute (7) Perforated viscus: Status: Acute (8) Coagulopathy: Status: Acute (9) Morbid obesity: Status: Chronic Plan Overall, patient's condition appears much improved from last night. Hemoglobin in 10.3, INR is now 1.38 for nearly 2. Drains are serosanguinous. Plan for continued ICU management with takeback to OR for repeat exploration and further bowel resection tomorrow. Remain NPO with NGT with LIWS. Prognosis remains poor. Attestations Medical Necessity Statement*: Patient requires further ICU managment and operative care. Coding Level of Care Code Acute Corporate Officer for Chg Fwd Medical Decision Making Moderate Complexity Diagnoses Bacteremia R78.81 Multiorgan failure Pneumonia J18.9 Lactic acidosis E87.2 Acute and chronic respiratory failure with hypoxia J96.21 Hepatic encephalopathy K72.90 Perforated viscus R19.8 Coagulopathy D68.9 Morbid obesity E66.01
--- NOTE | 2021-07-12 08:23 | PC.NURSE ---
Dr. Castanon and Dr. Goodson rounded this morning discussing POC. NG placed to low intermittent suction per Dr. Castanon.
--- NOTE | 2021-07-12 08:34 | ANE.PACU2 ---
Inpatient post-anesthesia follow up: Airway intact: Yes (ETT) Vital signs: Temperature 97.8 F Pulse Rate 97 Respiratory Rate 16 Blood Pressure 96/60 Pulse Oximetry 97 Oxygen Delivery Me thod Mechanical Ventila tion Oxygen Flow Rate 50 Fraction of Inspir ed Oxygen 40 Hydration adequate: Yes Nausea and vomiting: No Additional Comments: Intubated/sedate to ICU, pressors
[2021-07-12] MEDS: pantoprazole 40 mg SDV IVP ×2 (08:42→20:22)
--- NOTE | 2021-07-12 08:58 | PM.PN ---
Subjective Subjective: Patient's mentation and respiratory status worsened on 07/11 for which pulmonary medicine recommended to perform intubation. Patient found to have intraperitoneal free air with diffuse pneumotosis of the right and transverse colon yesterday for which general surgery evaluated she underwent exploratory laparotomy with transverse colon resection with plans for second look laparotomy in 24 to 48 hours. This morning, patient remains sedated and intubated which limits history. Per report, on sedation holiday overnight patient opened eyes but did not follow commands. Medications: Reviewed: Yes Vitals/I&O/Wt Last Vital Signs Temp 97.8 F 07/12/21 07:45 Pulse 97 07/12/21 08:34 Resp 16 07/12/21 08:15 BP 96/60 07/12/21 08:00 Pulse Ox 97 07/12/21 08:15 07/11/21 07/12/21 07/12/21 22:59 06:59 14:59 Intake Total 2597.178 / 2808.430 3091.266 / 5899.696 0 / 0 Output Total 150 / 150 725 / 875 165 / 165 Balance 2447.178 / 2658.430 2366.266 / 5024.696 -165 / -165 Weight last 48 hrs Weight 122 kg Weight 125.248 kg Physical Exam Narrative: General: Patient is intubated and sedated. Head: Normocephalic. Atraumatic. Pupils are equal and reactive. Neck: No JVD. Central line. Cardiovascular: RRR. Soft blood pressure. No gallops. No murmurs. 2+ lower extremity edema. Lungs: Breath sounds are diminished bilateral bases. No crackles or wheezes. Intubated on the ventilator. Skin: Jaundiced. Multiple blisters and wounds on bilateral lower extremities. Abdomen: Distended. Midline surgical scar covered with wound VAC system. 2 BRENDON drains with serosanguineous output. Hypoactive bowel sounds. Genito Urinary: Jacobo catheter with dark aprker urine. Extremeties: No cyanosis or clubbing. Musculoskeletal: No erythematous joints. Neurological: No myoclonus. Limited exam due to sedation. Urinary Catheter Management: Jacobo: Cath Placed During This Visit: yes Reason for Continuing Indwelling Catheter: Accurate Measurement of Urinary Output in Critically Ill Patients Urinary Catheter Date of Insertion: 07/07/21 Urinary Catheter Time of Insertion: 09:05 Data : 07/12/21 05:00 07/12/21 05:00 Micro: Microbiology 07/11/21 14:15 Gram Stain - Final Sputum - Endotracheal Tube Aspirate 07/07/21 09:40 Blood Culture - Preliminary Blood Methicillin Resis Staph Aureus Staphylococcus epidermidis Streptococcus viridans group A&P Assessment and plan (1) Perforation of transverse colon: General surgery following, appreciate recommendations. Status post exploratory laparotomy with transverse colon resection on 07/11. Per GS, plan to repeat ex lap on 07/12 or 07/13. Abdomen left open with covering wound VAC. 2 BRENDON drains with serosanguineous output Continue IV PPI BID Bowel Rest Consider TPN Status: Acute (2) Septic shock: Likely multifactorial in nature including bowel perforation, pneumonia, and multi organism bacteremia. Blood cultures from 07/07 with MRSA, staph epi, strep viridans Repeat blood cultures from 07/09 are no growth to date Endotracheal aspirate culture pending Continue Levophed for MAP goal of 65 mmHg, on 14 mics per minute this morning. Continue stress dose steroids. Continue Zosyn. Continue linezolid. Status: Acute (3) Acute and chronic respiratory failure with hypoxia: Respiratory status worsened requiring intubation by pulmonary on 07/11. Pulmonary medicine following, appreciate recommendations. Treating underlying pneumonia with antibiotics as above. Propofol for sedation. Fentanyl for analgesia. Status: Acute (4) Hypoglycemia: Likely secondary to liver failure. Continue D5 half NS infusion. May require TPN. Status: Acute (5) Lactic acidosis: Likely multifactorial from liver failure not processing lactate as well as poor peripheral perfusion due to septic shock and perforated bowel. Status: Acute (6) Acute encephalopathy: Multifactorial in nature including sepsis, acute metabolic encephalopathy, acute infectious encephalopathy, hepatic encephalopathy, and suspected delirium. Continue treating underlying processes. Unfortunately hepatic encephalopathy is likely to worsen while she is on bowel rest due to transverse colon rupture. Status: Acute (7) Alcoholic hepatitis: Secondary to alcohol abuse. Hospital course was complicated by suspected alcohol withdrawal. Status: Acute (8) Peripheral Vascular Disease: Aspirin on hold due to bleeding. Status: Chronic (9) CAD (coronary artery disease): Aspirin on hold due to bleeding. Status: Chronic Qualifiers: Associated angina: without angina Coronary Disease-Associated Artery/Lesion type: [place] artery [place] vs. transplanted heart: [place] heart Qualified Code(s): I25.10 - Atherosclerotic heart disease of [place] coronary artery without angina pectoris (10) Alcohol abuse: S/P thiamine. Status: Chronic (11) Pneumonia: Continue IV antibiotics as above. Status: Acute (12) Coagulopathy: Secondary to liver dysfunction. Received multiple doses of FFP and Kcentra on 07/11. Status: Acute (13) Thrombocytopenia: Worsening. Heparin products are on hold. Received multiple transfusions yesterday. Status: Acute (14) Chronic obstructive pulmonary disease, unspecified: Continue budesonide. Continue scheduled duo nebs. Status: Chronic Qualifiers: COPD type: chronic bronchitis Chronic bronchitis type: unspecified Qualified Code(s): J42 - Unspecified chronic bronchitis Plan Patient is critically ill with very poor prognosis. Anticipating repeat ex lap by general surgery in next 24 to 48 hours. She remains in multiorgan system failure, including respiratory failure requiring intubation and mechanical ventilation, liver failure complicated by hyperglycemia, and severe encephalopathy. We will need to determine definitive plan for nutrition. Anticipate we will likely need start TPN. Per documentation, CODE STATUS has been discussed with family. This needs to be an ongoing conversation. Attestations Medical Necessity Statement*: Patient requires ongoing hospitalization for multiorgan system failure, respiratory failure on vent, bowel rupture with open abdomen, and severe encephalopathy. Critical Care Time: The high probability of a clinically significant, sudden or life threatening deterioration of the patient's GI, neuro, respiratory system(s) required my full and direct attention, intervention and personal management. The critical care time is as shown. 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 transplanted heart: [place] heart Alcohol abuse F10.10 Hypoglycemia E16.2 Pneumonia J18.9 Coagulopathy D68.9 Thrombocytopenia D69.6 Chronic obstructive pulmonary disease, unspecified J42 COPD type: chronic bronchitis Chronic bronchitis type: unspecified
[2021-07-12] MEDS: levothyroxine 100 mcg SDV 20 MCG IVP (10:11)
--- NOTE | 2021-07-12 10:21 | PC.SOCIAL ---
IMM Updated Updated pt's family on IMM. No questions voiced. Provided family a copy. Initialed, dated, & timed copy in chart.
--- NOTE | 2021-07-12 12:22 | PC.NURSE ---
Dr. Merrill rounded discussed POC. Received order for bicarb gtt, 60mg IVP Lasix one time, and vasopressin order to maintain MAP>65.
--- NOTE | 2021-07-12 12:34 | P.PN_ITS ---
Subjective Subjective: The patient was seen and examined. She underwent exploratory laparotomy with resection of the transverse colon for colonic perforation. The plan is for her to go back for a repeat ex lap tomorrow. The patient is currently sedated. Chest x-ray this morning revealed worsening bilateral infiltrate likely secondary to pulmonary edema in the setting of fluid and blood product resuscitation. Blood work revealed stable white blood cell count. The patient received 5 PRBC and 4 FFP yesterday. Her hemoglobin is 10.3 today. Blood gas this morning revealed mild metabolic acidosis. Her urine output had been approximately 375 cc since last night. The patient has ATN with worsening creatinine and bicarb level. The patient is currently unable to respond. Medications: Reviewed: Yes Vitals/I&O/Wt Last Vital Signs Temp 97.8 F 07/12/21 07:45 Pulse 97 07/12/21 10:15 Resp 22 H 07/12/21 11:32 BP 95/61 07/12/21 10:15 Pulse Ox 97 07/12/21 11:32 07/11/21 07/12/21 07/12/21 22:59 06:59 14:59 Intake Total 2597.178 / 2808.430 3091.266 / 5899.696 181.356 / 181.356 Output Total 150 / 150 725 / 875 165 / 165 Balance 2447.178 / 2658.430 2366.266 / 5024.696 16.356 / 16.356 Weight last 48 hrs Weight 268 lb 15.423 oz Weight 276 lb 2 oz Physical Exam Narrative: General: The patient is intubated and sedated Neck: Unable to assess Respiratory: Auscultation: Wheezing and rhonchi bilaterally Cardiovascular: Tachycardia, regular rate and rhythm, S1-S2 present, no murmur, distant heart sound, mild peripheral edema. Abdomen: Distended, wound VAC in place, absent bowel sound Skin: Spontaneous disclamation with minimal friction, bandage wrapped around her upper and lower extremities Neuro: Intubated and sedated, unable to assess Urinary Catheter Management: Jacobo: Cath Placed During This Visit: yes Reason for Continuing Indwelling Catheter: Accurate Measurement of Urinary Output in Critically Ill Patients Urinary Catheter Date of Insertion: 07/07/21 Urinary Catheter Time of Insertion: 09:05 Data : 07/12/21 05:00 07/12/21 05:00 Micro: Microbiology 07/11/21 14:15 Gram Stain - Final Sputum - Endotracheal Tube Aspirate 07/07/21 09:40 Blood Culture - Preliminary Blood Methicillin Resis Staph Aureus Staphylococcus epidermidis Streptococcus viridans group Other data: I have reviewed the patient's laboratory microbiologic and rheologic data. She has stable white cell count. She has developed thrombocytopenia in the setting of sepsis and coagulopathy likely secondary to her liver disease. The patient is also developing metabolic alkalosis likely secondary to acute kidney injury and possibly lactic acidosis as well. Her blood sugar has been stable. A&P Assessment and plan (1) Septic shock: This is a 61-year-old lady with multiple medical comorbidities now with septic shock. The etiology for the shock is perforated viscus in addition to prior bacteremia. The patient is currently on Levophed, hydrocortisone stress dose. I am going to start her on vasopressin, septic dose. Hopefully this will help us reduce the dose of Levophed. She is broadly covered with Zosyn and Zyvox. Maintain MAP greater than 65 mmHg. She is on pantoprazole 40 mg twice a day. Status: Acute (2) Perforated viscus: The patient suffered from colonic perforation. She underwent transverse colectomy. The patient has a normal abdomen, the plan is for second look surgery tomorrow. Status: Acute (3) Hepatic encephalopathy: Unfortunately, the development of the perforated bowel will affect the overall management for hepatic encephalopathy. At this point, the patient will be kept n.p.o., It would be significantly risky to start the patient on TPN given her liver cirrhosis. The patient is currently receiving some nutrition from the propofol and the glucose. She may developed acute fatty liver, significantly worsening of liver enzymes in the setting of TPN. Her bilirubin is already increasing. Will address this once the bowel perforation issue has been taken care of. Status: Acute (4) Alcoholic hepatitis: The patient is an active alcoholic. She has direct and indirect hyperbilirubi nemia likely in the setting of alcoholic hepatitis. Also, the stress of her critical care illness is also likely contributing with the patient with liver cirrhosis. Status: Acute (5) Acute and chronic respiratory failure with hypoxia: The patient has developed acute hypoxic respiratory failure in the setting of septic shock as well as likely MRSA pneumonia. She is intubated and mechanically ventilated. Endotracheal aspirate did not grow any microorganism. There is bilateral increased infiltrate on the chest x-ray likely secondary to massive fluid resuscitation. Status: Acute (6) Lactic acidosis: The patient has developed lactic acidosis in the setting of septic shock. I am going to repeat the lactic acid level now. Status: Acute (7) Acute kidney injury: As expected, the patient's urine output has gone down. Her BUN is not high as the patient does not have any significant muscle mass. His creatinine is 1.2. The primary challenge at this point is going to be recovery of the kidney function. The patient is already showing reducing bicarb level and may actually need dialysis in the near future. Going to start her on a bicarb drip which will provide her with the glucose to prevent hypoglycemia as well as hopefully prevent the necessity of dialysis for the next 24 to 48 hours. Good given her dose of 60 mg of IV Lasix. Hopefully this will help with urine output and keep the fluid balance not too much positive. Status: Acute (8) Pneumonia: We will continue broad-spectrum antibiotics for the time being. Status: Acute (9) COPD (chronic obstructive pulmonary disease): Continue with the Pulmicort and DuoNeb nebulization. The patient is more than [id number] smoker. She is also receiving stress dose corticosteroid. Status: Acute Attestations Medical Necessity Statement*: This is a critically ill patient with high risk of mortality. We will continue the supportive care. Coding Level of Care Code Acute Brushing Machine Operator for [facility] Fwd Diagnoses Septic shock A41.9; R65.21 Perforated viscus R19.8 Hepatic encephalopathy K72.90 Alcoholic hepatitis K70.10 Acute and chronic respiratory failure with hypoxia J96.21 Lactic acidosis E87.2 Acute kidney injury N17.9 Pneumonia J18.9 COPD (chronic obstructive pulmonary disease) J44.9 Time Spent (min) 37
[2021-07-12] MEDS: FUROsemide 10 mg/mL SDV 10mL 60 MG IVP (12:48)
[2021-07-12 13:24] LABS: Glucose Point of Care 123 mg/dL (70-110)
[2021-07-12 14:06] LABS: Basophils % 0.3 %; Eosinophils % 0.1 %; Hematocrit 31.7 % (37.0-47.0); Hemoglobin 10.6 g/dL (11.5-15.3); Lymphocytes # 1.7 10^3/uL (0.8-4.8); Lymphocytes % 12.1 %; Mean Corpuscular HGB Conc 33.4 g/dL (30.0-36.0); Mean Corpuscular Hemoglobin 30.9 pg (28.0-34.0); Mean Corpuscular Volume 92.4 fl (81-99); Mean Platelet Volume 11.5 fL (7.4-10.4); Monocytes # 1.5 10^3/uL (0.2-0.9); Monocytes % 10.1 %; Neutrophils # 11.12 10^3/uL (1.8-7.7); Neutrophils % 77.1 %; Nucleated Red Blood Cells % 0 %; Platelet Count 93 10^3/cmm (130-400); Red Blood Count 3.43 10^6/uL (4.1-5.3); Red Cell Distribution Width 18.7 % (12.1-15.1); White Blood Count 14.4 10^3/uL (4.0-10.0)
[2021-07-12 14:24] LABS: INR 1.47 (0.8-1.2)
[2021-07-12 14:34] LABS: Alanine Aminotransferase 15 U/L (0-33); Alkaline Phosphatase 67 IU/L (35-105); Anion Gap 20.9 (5-19); Aspartate Amino Transferase 33 U/L (0-32); Blood Urea Nitrogen 17 mg/dL (8-23); Calcium 9.4 mg/dL (8.5-10.5); Carbon Dioxide 21 mmol/L (22-29); Chloride 99 mmol/L (98-107); Globulin 2.3 g/dL (1.3-4.6); Glomerular Filtration Rate 50.3 mL/min (90-130); Glucose 111 mg/dL (65-115); Magnesium 1.8 mg/dL (1.7-2.3); Osmolality Calculated 286 mOsm/kg (285-295); Phosphorus 3.4 mg/dL (2.5-4.5); Potassium 3.9 mmol/L (3.5-5.1); Sodium 137 mmol/L (136-145); Total Protein 5.3 g/dL (6.6-8.7)
[2021-07-12 14:52] LABS: Lactate (Lactic Acid level) 7.3 mmol/L (0.5-2.2); Total Bilirubin 10.1 mg/dL (0.15-1.2)
--- NOTE | 2021-07-12 17:38 | PC.NUTR ---
MD notes 04/14 mentioned Pt will likely start TPN. Recommend consideration of Clinimix 5/20, central administration, beginning at 13 ml/hr and increasing 10 mls/hr Q8H until infusing at rate of 83 mls/hr; to include standard electrolytes and multivitamins 10 mls/day. Details in RD assessment.
[2021-07-12 22:54] LABS: Glucose Point of Care 110 mg/dL (70-110)
[2021-07-13] VITALS (84 sets, daily range): BP systolic 51–132; BP diastolic 31–97; PULSE 76–100; RESP 16–18; TEMP 33.7–37; O2SAT 0–100
[2021-07-13] MEDS: piperacillin-tazobactam 3.375 GM in sodium chloride 0.9% (plus) 100 ML IV ×3 (02:34→19:01)
[2021-07-13] MEDS: linezolid premix 600 MG/300 ML PREMIX 300 MG IV ×2 (02:35→13:57)
[2021-07-13] MEDS: propofol 1,000 MG/100 ML INJ 11.27 MG IV ×2 (02:37→09:11)
[2021-07-13] MEDS: ipratropium-albuterol 3 mL Neb INHALATION ×4 (03:14→19:59)
[2021-07-13 03:23] LABS: ABG PCO2 43.5 mmHg (35-45); ABG PH Result 7.42 (7.35-7.45); Alveolar-Arterial Oxygen Gradi 13.4 mmHg (5-10); Arterial Blood Gas Hematocrit 30.9 % (37-47); Base Excess ABG 2.9 mmol/L (-2.0-2.0); Blood Gas Sample Site ART; Blood Gas Sample Type Arterial; Carboxyhemoglobin 2.6 %THgb (0.4-20.1); HCO3 ABG 27.9 mmol/L (22-26); HGB O2 Sat 87.8 % (95-100); Ionized Calcium Level - ABG 1.1 mmol/L (1.1-1.4); Methemoglobin 0.9 % (0.4-1.5); Oxygen Device VENT; PO2 ABG 56.6 mmHg (80.0-100.0); Potassium Level - ABG 3.5 mmol/L (3.5-5.0); Total Hemoglobin 10.1 g/dL (12-16)
[2021-07-13 05:48] LABS: INR 1.49 (0.8-1.2)
[2021-07-13 05:52] LABS: Basophils % 0.3 %; Hemoglobin 9.8 g/dL (11.5-15.3); Lymphocytes # 1.1 10^3/uL (0.8-4.8); Lymphocytes % 9.3 %; Mean Corpuscular Hemoglobin 31.5 pg (28.0-34.0); Mean Platelet Volume 11.4 fL (7.4-10.4); Monocytes # 0.7 10^3/uL (0.2-0.9); Monocytes % 6.3 %; Neutrophils # 9.75 10^3/uL (1.8-7.7); Neutrophils % 83.7 %; Nucleated Red Blood Cells % 0.3 %; Platelet Count 60 10^3/cmm (130-400); Red Blood Count 3.11 10^6/uL (4.1-5.3); White Blood Count 11.6 10^3/uL (4.0-10.0)
[2021-07-13 05:55] LABS: Alanine Aminotransferase 14 U/L (0-33); Albumin Level 2.6 g/dL (3.5-5.2); Alkaline Phosphatase 80 IU/L (35-105); Anion Gap 14.8 (5-19); Aspartate Amino Transferase 25 U/L (0-32); Blood Urea Nitrogen 18 mg/dL (8-23); Carbon Dioxide 29 mmol/L (22-29); Chloride 100 mmol/L (98-107); Globulin 2.2 g/dL (1.3-4.6); Glomerular Filtration Rate 63.4 mL/min (90-130); Glucose 142 mg/dL (65-115); Magnesium 1.7 mg/dL (1.7-2.3); Osmolality Calculated 294 mOsm/kg (285-295); Phosphorus 2.9 mg/dL (2.5-4.5); Potassium 3.8 mmol/L (3.5-5.1); Sodium 140 mmol/L (136-145); Total Protein 4.8 g/dL (6.6-8.7)
[2021-07-13] MEDS: hydrocortisone 100 mg/2 mL SDV 50 MG IVP ×3 (05:58→19:04)
--- NOTE | 2021-07-13 06:00 | XRR_ITS ---
PROCEDURE INFORMATION: Exam: XR Chest Exam date and time: 07/13/2021 6:56 AM Age: 61 years old Clinical indication: Shortness of breath; Additional info: Respiratory failure TECHNIQUE: Imaging protocol: XR of the chest. Views: 1 view. COMPARISON: CR (CHEST, ) 07/12/2021 4:57 AM FINDINGS: Tubes, catheters and devices: Endotracheal tube approximately 4.5 cm above the floyd. An enteric tube is noted extending below the level of the diaphragm and out of the field of view. Lungs: Mildly improved aeration in the right lung with persistent dense opacities. Improved aeration in the left lung with persistent ground-glass densities. Pleural spaces: Small right-sided pleural effusion. Pleural thickening along the lateral margin of the lung similar to prior exam. Heart/Mediastinum: Persistent large cardiomediastinal silhouette. Bones/joints: Unremarkable. XR/XR chest 1V portable [id number] IMPRESSION: 1. Improved aeration in the lungs compared to prior exam, with persistent airspace opacities. 2. Stable right-sided pleural effusion.
[2021-07-13 06:06] LABS: Add RBC Morph Yes; Hypochromasia 3+; RBC Morph Comp No; Slide Review Slide Review Perform; Smudge Cells 1+; Target Cells 1+
[2021-07-13 06:09] LABS: Total Bilirubin 8.9 mg/dL (0.15-1.2)
[2021-07-13] MEDS: budesonide 0.5 mg/2 mL Neb INHALATION ×2 (08:06→19:59)
[2021-07-13] MEDS: levothyroxine 100 mcg SDV 20 MCG IVP (09:11)
[2021-07-13] MEDS: pantoprazole 40 mg SDV IVP ×2 (09:11→21:03)
--- NOTE | 2021-07-13 11:21 | PM.PN ---
Subjective Subjective: Met with patient's daughters yesterday afternoon. Discussed patient's current condition and prognosis. They endorsed understanding. They made decision to make patient DNR, but no other limitations on care. There were no reported acute events overnight. Medications: Reviewed: Yes Vitals/I&O/Wt Last Vital Signs Temp 98.2 F 07/13/21 10:30 Pulse 98 07/13/21 10:30 Resp 16 07/13/21 10:30 BP 115/83 07/13/21 10:30 Pulse Ox 97 07/13/21 10:30 07/12/21 07/13/21 07/13/21 22:59 06:59 14:59 Intake Total 754 / 1880.606 754.000 / 2634.606 74.006 / 74.006 Output Total 1595 / 1960 835 / 2795 210 / 210 Balance -841 / -79.394 -81.000 / -160.394 -135.994 / -135.994 Weight last 48 hrs Weight 123.8 kg Weight 122 kg Physical Exam Narrative: General: Patient is intubated and sedated. Head:? Normocephalic. Atraumatic.?Pupils are equal and reactive. Neck: Central line. Cardiovascular: RRR.?No gallops. No murmurs.? 2+ lower extremity edema similar to prior exam. Lungs: Breath sounds are diminished bilateral bases.?Breath sounds are course. No crackles or wheezes.? Intubated on the ventilator. Skin: Jaundiced.? Multiple blisters and wounds on bilateral lower extremities unchanged from prior exam. Abdomen: Distended.?Midline surgical scar covered with wound VAC system. 2 BRENDON drains with serosanguineous drainage.? Hypoactive bowel sounds. Genito Urinary: Jacobo catheter. Extremeties: No cyanosis or clubbing. Musculoskeletal: No erythematous joints. Neurological: No myoclonus.? Limited exam due to sedation. Urinary Catheter Management: Jacobo: Cath Placed During This Visit: yes Reason for Continuing Indwelling Catheter: Accurate Measurement of Urinary Output in Critically Ill Patients Urinary Catheter Date of Insertion: 07/07/21 Urinary Catheter Time of Insertion: 09:05 Data : 07/13/21 05:18 07/13/21 05:18 Micro: Microbiology 07/11/21 14:15 Gram Stain - Final Sputum - Endotracheal Tube Aspirate Sputum Culture - Preliminary Yeast 07/07/21 08:25 Blood Culture - Final Blood Staphylococcus sp coag neg Streptococcus viridans group Methicillin Resis Staph Aureus 07/07/21 09:40 Blood Culture - Final Blood Methicillin Resis Staph Aureus Staphylococcus epidermidis Streptococcus viridans group A&P Assessment and plan (1) Septic shock: Multifactorial in origin 2/2 bowel perforation, pneumonia, multiorganism bacteremia, and lower extremity wounds. Blood cultures (07/07) positive for MRSA, staph epi, strep viridans. Repeat blood cultures (07/09) are no growth to date x2. TTE (07/08) with no mention of findings suggestive of IE, although noted to be difficult exam. Consider ANUPAMA pending clinical course. Endotracheal aspirate culture (07/11) positive for yeast, unclear clinical significance, possible colonization vs. rare fungal PNA; defer decision to start anti-fungal to pulm/cc. Continue Levophed for MAP goal of 65 mmHg. Continue vasopressin. Continue stress dose steroids. Continue Zosyn (07/08-p). Continue linezolid (07/07-p). Status: Acute (2) Perforation of transverse colon: Status post exploratory laparotomy with transverse colon resection on 07/11. General surgery following, appreciate recommendations. Discussed w/ Dr. Goodson this morning. Anticipate repeat ex lap 07/13. Continue IV PPI BID. Start TPN post op 07/13. Routine drain care. Status: Acute (3) Acute and chronic respiratory failure with hypoxia: Intubated 07/11. Pulmonary medicine following, appreciate recommendations. Continue abx. Propofol for sedation. Fentanyl for analgesia. Status: Acute (4) Hypoglycemia: Secondary to liver dysfunction. Continue bicarb drip. Monitor BS. Hypoglycemia protocol. Status: Acute (5) Lactic acidosis: Secondary to septic shock, bowel perforation, and decreased hepatic clearance. Treat underlying conditions. Status: Acute (6) Acute encephalopathy: Multifactorial including sepsis, acute metabolic encephalopathy, acute infectious encephalopathy, and hepatic encephalopathy. Unfortunately hepatic encephalopathy is likely to worsen while she is on bowel rest due to transverse colon rupture. Anticipate rifaximin and lactulose when bowel function returns. Status: Acute (7) Alcoholic hepatitis: With transaminitis, hyperbilirubinemia, and liver dysfunction secondary to alcohol abuse. Status: Acute (8) Pneumonia: Continue IV abx as above. Status: Acute (9) COPD (chronic obstructive pulmonary disease): Continue budesonide. Continue scheduled duo nebs. Status: Acute (10) Thrombocytopenia: Worsening. Heparin products on hold. Continue transfusions as needed. Status: Acute (11) Coagulopathy: Secondary to liver dysfunction. Status post multiple transfusions and FFP. Defer additional reversal to GS as needed for operation today. Status: Acute (12) Acute kidney injury: Strict I&Os. Avoid nephrotoxins. Continue Bicarb drip. Already consented for dialysis if needed. Status: Acute (13) CAD (coronary artery disease): Aspirin on hold due to bleeding. Status: Chronic Qualifiers: Coronary Disease-Associated Artery/Lesion type: [place] artery [place] vs. transplanted heart: [place] heart Associated angina: without angina Qualified Code(s): I25.10 - Atherosclerotic heart disease of [place] coronary artery without angina pectoris Plan DVT ppx: SCD Code status: DNR. No other limitations on care. NOK: Daughters Attestations Medical Necessity Statement*: Patient remains critically ill requiring ongoing hospitalization for ventilator support, further bowel surgery, vasopressor support, IV abx, and TPN. Critical Care Time: The high probability of a clinically significant, sudden or life threatening deterioration of the patient's circulatory, hepatic, renal, cardiovascular, respiratory, neuro, GI system(s) required my full and direct attention, intervention and personal management. The critical care time is as shown. 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 transplanted heart: [place] heart Associated angina: without angina Lactic acidosis E87.2 Alcoholic hepatitis K70.10
--- NOTE | 2021-07-13 11:33 | P.PN_ITS ---
Subjective Subjective: Patient remains intubated/sedated. No acute events overnight. Family understands her poor prognosis and made her DNR. She is currently receiving a transfusion of platelets for OR. Vitals/I&O/Wt Last Vital Signs Temp 98.2 F 07/13/21 10:30 Pulse 98 07/13/21 10:30 Resp 16 07/13/21 11:04 BP 115/83 07/13/21 10:30 Pulse Ox 93 07/13/21 11:04 07/12/21 07/13/21 07/13/21 22:59 06:59 14:59 Intake Total 754 / 1880.606 754.000 / 2634.606 74.006 / 74.006 Output Total 1595 / 1960 835 / 2795 210 / 210 Balance -841 / -79.394 -81.000 / -160.394 -135.994 / -135.994 Weight last 48 hrs Weight 272 lb 14.916 oz Weight 268 lb 15.423 oz Physical Exam Narrative: Gen: NAD, intubated/sedated Abd: S, ND, no grimace to palpation- although intubated and sedated, no guarding Drains: Serosanguinous Urinary Catheter Management: Jacobo: Cath Placed During This Visit: yes Reason for Continuing Indwelling Catheter: Accurate Measurement of Urinary Output in Critically Ill Patients Urinary Catheter Date of Insertion: 07/07/21 Urinary Catheter Time of Insertion: 09:05 Data : 07/13/21 05:18 07/13/21 05:18 Micro: Microbiology 07/11/21 14:15 Gram Stain - Final Sputum - Endotracheal Tube Aspirate Sputum Culture - Preliminary Yeast 07/07/21 08:25 Blood Culture - Final Blood Staphylococcus sp coag neg Streptococcus viridans group Methicillin Resis Staph Aureus 07/07/21 09:40 Blood Culture - Final Blood Methicillin Resis Staph Aureus Staphylococcus epidermidis Streptococcus viridans group A&P Assessment and plan (1) Perforation of transverse colon: Status: Acute (2) Bacteremia: Status: Acute (3) Pneumonia: Status: Acute (4) Lactic acidosis: Status: Acute (5) Acute and chronic respiratory failure with hypoxia: Status: Acute (6) Alcoholic hepatitis: Status: Acute (7) Hepatic encephalopathy: Status: Acute (8) Septic shock: Status: Acute (9) Thrombocytopenia: Status: Acute Plan To OR for Exploratory Laparotomy The risks and benefits of the procedure, including but not limited to bleeding, infection, damage to surrounding structures, need for repeat surgery, , scar, numbness, pain, were explained to the patient's life partner and daughters. I made it very clear that the patient's prognosis is very poor. There is a very high risk of . The life-partner and daughters are well aware of this and want to proceed with all life-saving measures in the operating room, but she is otherwise DNR. All questions were answered to the best of my ability. Attestations Medical Necessity Statement*: Needs ICU care Coding Level of Care Code Acute Wire Drawing Machine Tender for g Fwd Diagnoses Perforation of transverse colon K63.1 Bacteremia R78.81 Pneumonia J18.9 Lactic acidosis E87.2 Acute and chronic respiratory failure with hypoxia J96.21 Alcoholic hepatitis K70.10 Hepatic encephalopathy K72.90 Septic shock A41.9; R65.21 Thrombocytopenia D69.6
--- NOTE | 2021-07-13 13:14 | PM.PN ---
Subjective Subjective: The patient was seen and examined. Surrounded by family. Currently the patient is DNR. She is going to the OR today for second look. Overnight, the patient has done fairly well. Her pressor requirements have been coming down. She is off of vasopressin. The patient is currently on 4 mcg of Levophed. Her urine output was good and creatinine is 0.9. With the bicarb drip the patient did not give a lot of acidosis. Her endotracheal aspirate culture is growing small quantity of yeast. This is colonization and no treatment is necessary. The lactic acid was high yesterday likely due to the inability of the liver to metabolize lactic acid. Chest x-ray this morning revealed improved infiltrate. Her oxygen requirement has also come down. Persistent thrombocytopenia. Likely multifactorial. The patient is off of subcu heparin currently. Medications: Reviewed: Yes Vitals/I&O/Wt Last Vital Signs Temp 98.6 F 07/13/21 12:50 Pulse 96 07/13/21 12:50 Resp 16 07/13/21 12:50 BP 93/62 07/13/21 12:50 Pulse Ox 93 07/13/21 12:50 07/12/21 07/13/21 07/13/21 22:59 06:59 14:59 Intake Total 754 / 1880.606 754.000 / 2634.606 276.006 / 276.006 Output Total 1595 / 1960 835 / 2795 210 / 210 Balance -841 / -79.394 -81.000 / -160.394 66.006 / 66.006 Weight last 48 hrs Weight 272 lb 14.916 oz Weight 268 lb 15.423 oz Physical Exam Narrative: General: The patient is intubated and sedated Neck: Unable to assess Respiratory: Auscultation: Crackles at bilateral lung bases, no wheezing or rhonchi Cardiovascular: Tachycardia, regular rate and rhythm, S1-S2 present, no murmur, distant heart sound, bilateral peripheral edema. Abdomen: Distended, wound VAC in place, absent bowel sound, serosanguineous fluid in the drains Skin: The patient is icteric, bandage wrapped around her upper and lower extremities Neuro: Intubated and sedated, unable to assess Urinary Catheter Management: Jacobo: Cath Placed During This Visit: yes Reason for Continuing Indwelling Catheter: Accurate Measurement of Urinary Output in Critically Ill Patients Urinary Catheter Date of Insertion: 07/07/21 Urinary Catheter Time of Insertion: 09:05 Data : 07/13/21 05:18 07/13/21 05:18 Micro: Microbiology 07/11/21 14:15 Gram Stain - Final Sputum - Endotracheal Tube Aspirate Sputum Culture - Preliminary Yeast 07/07/21 08:25 Blood Culture - Final Blood Staphylococcus sp coag neg Streptococcus viridans group Methicillin Resis Staph Aureus 07/07/21 09:40 Blood Culture - Final Blood Methicillin Resis Staph Aureus Staphylococcus epidermidis Streptococcus viridans group Other data: I have reviewed the patient's laboratory microbiologic and rheologic data. Please see the subjective for details. A&P Assessment and plan (1) Septic shock: This is a 61-year-old lady with multiple medical comorbidities now with septic shock. The etiology for the shock is perforated viscus in addition to prior bacteremia. Hemodynamically, the patient has done fairly well. She is off of vasopressin. The vasopressin has actually also helped with reduction of the Levophed dose. Currently the patient is on 4 mcg of Levophed. I am going to reduce the hydrocortisone to 50 mg every 8 hours. She is broadly covered with Zosyn and Zyvox. The endotracheal tube aspirate is is not indicated of invasive fungal infection and does not need any antifungal treatment. Maintain MAP greater than 65 mmHg. She is on pantoprazole 40 mg twice a day. Status: Acute (2) Perforated viscus: The patient suffered from colonic perforation. She underwent transverse colectomy. The patient has a normal abdomen. The patient is going back to the OR for second look today. If, the patient is started on TPN I would be very cautious and start at a lower caloric value. The patient is currently receiving approximately 10 mL of propofol and in 24-hour time this would provide approximately 250 kcal in the form of fat. Her liver is likely unable to visualize the fat and is at high risk for getting hypertriglyceridemia which can cause acute pancreatitis. I am going to obtain a triglyceride level now. If TPN is to be given, I would recommend only giving the patient dextrose and amino acids and not add any additional fat component as the patient is already getting it through the propofol. I would target for a total of 1250 kcal with the TPN and the patient is receiving another 250 with the propofol. If the patient is able to tolerate this with her impaired liver function, we could slowly increase her TPN. However, if and when the patient's bowel function improves, the best therapy would be enteral nutrition. Status: Acute (3) Hepatic encephalopathy: We will continue the supportive therapy once the patient is stable from the surgical perspectives. Status: Acute (4) Alcoholic hepatitis: The patient is an active alcoholic. She has direct and indirect hyperbilirubinemia likely in the setting of alcoholic hepatitis. The hyperbilirubinemia seems to be somewhat better today. Status: Acute (5) Acute and chronic respiratory failure with hypoxia: The patient has developed acute hypoxic respiratory failure in the setting of septic shock as well as fluid overload. She is intubated and mechanically ventilated. She is broadly covered with antibiotic. Endotracheal aspirate is growing yeast which is a contaminant/colonizer. The chest x-ray has improved with the Lasix. We will continue with next milligram of Lasix today as well. Status: Acute (6) Lactic acidosis: The patient has developed lactic acidosis in the setting of septic shock. She does not have any evidence of metabolic acidosis at this time. However, the patient will have impaired lactic acid clearance because of her liver failure. Status: Acute (7) Acute kidney injury: Fortunately, her urine output has been good. She has not developed any significant electrolyte abnormalities or acidosis. I am going to discontinue her bicarb drip at this point. We will continue with supportive therapy. Hopefully, we can avoid dialysis. Status: Acute (8) Pneumonia: We will continue broad-spectrum antibiotics for the time being. Status: Acute (9) COPD (chronic obstructive pulmonary disease): Continue with the Pulmicort and DuoNeb nebulization. The patient is more than 25-baef-smxe smoker. She is also receiving stress dose corticosteroid. Status: Acute Attestations Medical Necessity Statement*: This is a critically ill patient with high risk of in-hospital mortality. I have discussed this with the patient's family. We will continue the supportive care. Coding Level of Care Code Acute Endband Sizer for [facility] Diagnoses Septic shock A41.9; R65.21 Perforated viscus R19.8 Hepatic encephalopathy K72.90 Alcoholic hepatitis K70.10 Acute and chronic respiratory failure with hypoxia J96.21 Lactic acidosis E87.2 Acute kidney injury N17.9 Pneumonia J18.9 COPD (chronic obstructive pulmonary disease) J44.9 Time Spent (min) 32
--- NOTE | 2021-07-13 13:15 | PC.NURSE ---
2 units of platelets given. No reactions noted. See TAR
--- NOTE | 2021-07-13 13:36 | P.ANESUD_ITS ---
Pre-Anesthetic Update Pre-Anesthetic Assessment: Date of Surgery/Procedure: 07/13/21 Preop Angelica gnosis: grade 3a open bi malleolar ankle fracture Proposed Procedure: Operation Date: 07/11/21 19:00 Proposed Procedures p Exploratory Laparotomy(Not Applicable) - Jean Pierre Goodson, DO Operation Date: 07/13/21 13:10 Proposed Procedures p Exploratory Laparotomy(Not Applicable) - Jean Pierre Goodson, DO Any changes to Pre-Anesthetic Assessment?: No Changes from Pre-Anesthetic Assessment: Not many changes in interim, intubated and sedated in ICU, lab values have improved some, continues on pressors. Labs Last 48hrs: Short CBC 07/11/21 07/12/21 07/12/21 Range/Units 15:32 05:00 13:56 WBC 8.3 10.3 H 14.4 H (4.0-10.0) 10^3/ uL Hgb 12.7 10.3 L 10.6 L (11.5-15.3) g/dL Hct 37.3 31.1 L 31.7 L (37.0-47.0) % MCV 96.1 94.0 92.4 (81-99) fl Plt Count 121 L 102 L 93 L (130-400) 10^3/c mm Neut % (Auto) 83.9 75.9 77.1 % Neut # (Auto) 6.95 7.79 H 11.12 H (1.8-7.7) 10^3/u L 07/13/21 Range/Units 05:18 WBC 11.6 H (4.0-10.0) 10^3/ uL Hgb 9.8 L (11.5-15.3) g/dL Hct 28.0 L (37.0-47.0) % MCV 90.0 (81-99) fl Plt Count 60 L D (130-400) 10^3/c mm Neut % (Auto) 83.7 % Neut # (Auto) 9.75 H (1.8-7.7) 10^3/u L BMP 07/11/21 07/12/21 07/12/21 15:06 05:00 13:56 Sodium 141 140 137 Potassium 3.9 3.8 3.9 Chloride 101 100 99 Carbon Dioxide 23 19 L 21 L BUN 17 17 17 Creatinine 1.1 H 1.2 H 1.1 H Glucose 53 L 136 H 111 Calcium 9.6 9.1 9.4 07/13/21 05:18 Sodium 140 Potassium 3.8 Chloride 100 Carbon Dioxide 29 BUN 18 Creatinine 0.9 Glucose 142 H Calcium 9.0 Liver Function 07/12/21 07/12/21 07/13/21 Range/Units 05:00 13:56 05:18 Total Bilirubin 9.7 H* 10.1 H* 8.9 H* (0.15-1.2) mg/dL AST 39 H 33 H 25 (0-32) U/L ALT 15 15 14 (0-33) U/L Alkaline Phosphata se 72 67 80 (35-105) IU/L Albumin 3.1 L 3.0 L 2.6 L (3.5-5.2) g/dL Blood Bank 07/11/21 17:22 Blood Type O Positive Rho(D) Type Positive Antibody Screen Negative Coags 07/11/21 07/12/21 07/12/21 19:50 05:00 13:56 PT 20.50 H 17.30 H 18.10 H INR 1.72 H 1.38 H 1.47 H APTT 41.3 H 07/13/21 05:18 PT 18.40 H INR 1.49 H APTT ABG 07/11/21 07/11/21 07/11/21 13:28 16:34 19:35 Specimen Type Arterial Arterial Arterial Sample Site Radial, right Art line Not specified ABG pH 7.33 L 7.41 7.34 L ABG pCO2 47.8 H 38.8 41.1 ABG pO2 44.9 L 73.8 L 93.8 ABG HCO3 25.0 24.5 22.3 ABG O2 Saturation 76.5 95.5 97.7 ABG Base Excess -1.5 0.0 -3.3 L A-a O2 Gradient 27.2 H 30.2 H 27.2 H O2 Delivery Device Nc Vent Vent O2 Liters/Min 6.0 FiO2 44.0 50.0 50.0 Tidal Volume 0.40 PEEP 8.0 07/12/21 07/13/21 04:01 04:00 Specimen Type Arterial Arterial Sample Site Not specified Art ABG pH 7.28 L 7.42 ABG pCO2 40.8 43.5 ABG pO2 75.5 L 56.6 L ABG HCO3 19.4 L 27.9 H ABG O2 Saturation 96.0 91.0 ABG Base Excess -6.9 L 2.9 H A-a O2 Gradient 20.5 H 13.4 H O2 Delivery Device Vent Vent O2 Liters/Min FiO2 40.0 30.0 Tidal Volume 0.40 0.40 PEEP 8.0 8.0 Vitals: Temperature 98.6 F 07/13/21 12:50 Temperature Source Axillary 07/13/21 12:50 Pulse Rate 96 07/13/21 12:50 Pulse Rhythm 07/13/21 12:50 Pulse Strength 2+ Slightly Dimin ished 07/13/21 10:00 Respiratory Rate 16 07/13/21 12:50 Respiratory Effort 07/13/21 12:50 Respiratory Depth Normal 07/13/21 12:50 Respiratory Patter n 07/13/21 12:23 Blood Pressure 93/62 07/13/21 12:50 Blood Pressure Cindy n 72 07/13/21 12:50 Blood Pressure Pos ition Semi Fowlers 07/13/21 12:35 Pulse Oximetry 93 07/13/21 12:50 Oxygen Delivery Me thod 07/13/21 08:06 Oxygen Flow Rate 50 07/11/21 16:00 Fraction of Inspir ed Oxygen 30 07/13/21 11:04 Sepsis Recent Feve r Within 48 Hours No 07/07/21 08:57 Exam: Additional Exam Findings (including area of procedure): tachy, hypotensive on norepi and vaso (on/off), sedated Cardiac Studies: Echocardiogram 07/08/21 Echocardiogram Ultrasound 03/06/20 Sestamibi Stress Test (Cardiology) 10/10/20
[2021-07-13 13:52] LABS: Triglycerides 98 mg/dL (0-150)
[2021-07-13] MEDS: FUROsemide 10 mg/mL SDV 4mL 60 MG IVP (13:57)
[2021-07-13 14:05] LABS: Lactate (Lactic Acid level) 4.6 mmol/L (0.5-2.2)
--- NOTE | 2021-07-13 14:13 | PC.NURSE ---
Pt taken to surgery by staff at 1400. Sedation, levophed and antibiotics running. Partner in room and aware of transfer of pt.
--- NOTE | 2021-07-13 14:48 | PC.NURSE ---
right and left abdomen yoel drains removed prior to surgery by Dr Goodsno
[2021-07-13 14:55] LABS: Glucose Point of Care 123 mg/dL (70-110)
[2021-07-13 15:19] LABS: ABG PCO2 43.3 mmHg (35-45); ABG PH Result 7.45 (7.35-7.45); Arterial Blood Gas Hematocrit 24.7 % (37-47); Base Excess ABG 5.7 mmol/L (-2.0-2.0); Blood Gas Allen Test Pos; Blood Gas Operator Identificat MONRO; Blood Gas Sample Type Arterial; Carboxyhemoglobin 1.8 %THgb (0.4-20.1); HCO3 ABG 30.2 mmol/L (22-26); HGB O2 Sat 97.5 % (95-100); Ionized Calcium Level - ABG 1.1 mmol/L (1.1-1.4); Methemoglobin 1.1 % (0.4-1.5); Oxygen Device VENT; Oxygen Saturation ABG > 100.0; Potassium Level - ABG 3.6 mmol/L (3.5-5.0); Total Hemoglobin 8.1 g/dL (12-16)
[2021-07-13] MEDS: tranexamic acid 1,000 mg/10mL SDV 1000 MG IV (16:30)
[2021-07-13] MEDS: thrombin 5,000 unit SDV 5000 UNIT XX (16:45)
--- NOTE | 2021-07-13 17:20 | ANE.PACU2 ---
Inpatient post-anesthesia follow up: Airway intact: Yes (ETT) Vital signs: Temperature 98.6 F Pulse Rate 100 Respiratory Rate 16 Blood Pressure 101/70 Pulse Oximetry 93 Oxygen Delivery Me thod Mechanical Ventila tion Oxygen Flow Rate 50 Fraction of Inspir ed Oxygen 30 Hydration adequate: Yes Nausea and vomiting: No Additional Comments: Sedated/intubated to ICU, massive blood loss during case, transfused multiple RBC's and FFP, platelets in transit--contd pressors (erin and norepi). Critical
--- NOTE | 2021-07-13 17:34 | PM.OP ---
Operative Report Date of procedure: July 13, 2021 Pre-op diagnosis: Preop Diagnosis Open Abdomen, S/P transverse colectomy for perforation, Multiorgan failure, bacteremia, alcoholic encephalopathy, Portal venous hypertension Post-op diagnosis: Open Abdomen, S/P right hemicolectomy, Multiorgan failure, bacteremia, alcoholic encephalopathy, Portal venous hypertension Procedure done: Exploratory laparotomy, right hemicolectomy, control of mesenteric bleeding Specimens removed/disposition: Right colon Surgeon: Dr. Jean Pierre Etienne Bread Dough Mixer: Delfina Hernandez Estimated blood loss: 10 L Brief History: This is a morbidly obese 61-year-old patient, with a BMI of 47, who presented to the hospital with a GCS of 4 secondary to alcoholic encephalopathy. When I first saw the patient 2 days ago she had a GCS of 3T. She has remained on vasopressors. She has multiple organisms growing on her blood and pneumonia. She recently had a VATS procedure at [facility] approximately 1 week prior to arrival to hospital. After intubation at the hospital she was found to have free air under the diaphragm on chest x-ray. I originally went in for exploratory laparotomy 2 days ago and found a perforated transverse colon. She had a coagulopathy at that time with a INR of almost 2, along with portal venous hypertension. She had extensive venous bleeding and therefore only underwent a transverse colectomy and was left with an open abdomen, in discontinuity. I bring her back to the operating room today to evaluate for remaining bowel viability in the hopes of performing a right hemicolectomy and primary anastomosis. She has a very poor prognosis. The family has made her DNR. I spoke in great length to the family how she has a very poor prognosis and that this is a last ditch effort to try to save her. Her chance of survival is very poor. The risks and benefits of the procedure, including but not limited to, bleeding, infection, damage surrounding structures, scar, numbness, pain, AK, PE, , were explained to the family. They are understanding the risks and wished to proceed. They seemed at peace with her prognosis. Procedure: Patient was brought into the operating room and placed on table in supine position. The wound VAC was removed, and the abdomen was inspected prepped and draped in usual sterile fashion. A timeout was performed and all present were in agreement. Suture scissors were used to cut and remove #1 PDS used to approximate the fascia. There was a moderate amount of old blood in the abdomen, which was suctioned. I then inspected the entirety of the abdomen and the remaining bowel appeared viable. Just touching the omentum and the bowel she began having venous oozing again, secondary to her portal venous hypertension. Her INR was 1.5 preoperatively. We gave her 2 pools of platelets preoperatively and ultimately gave her 6 units of FFP intraoperatively. I began taking down the right white line of Toldt bluntly and sharply, utilizing the Voyant. The mesentery was transected using the Voyant as well. The right colic artery was taken utilizing the Voyant. We had approximately 3 L of blood loss up to this point, again due to venous oozing secondary to her portal hypertension. With retraction of the right colon just prior to complete resection, there was a tear at the root of the mesentery with significant venous bleeding. Multiple 0 and 3-0 Vicryl were used in attempt to control the bleeding. Cardiovascular surgery, Dr. Etienne, was called in for assistance. We are able to control the blood loss at through the mesentery with clips. Surgicel and thrombin were then placed over through the mesentery. A laparotomy pad was placed on top of this to help control bleeding. No overt bleeding was seen at this time, however the plate patient lost a total of 10 L of blood. 9 units PRBCs were transfused. In total patient received 9 units PRBCs and 6 units FFP in the operating room and 2 pools of platelets preoperatively. Her blood pressure never dropped significantly low for any significant period of time. When she left the operating room she was on only 10 mcgs of Levophed, same as her preoperative amount. I then used a CLARA 75 with a blue load to transect the transverse colon. The small amount of remaining mesentery was transected using the Voyant. A total of 5 lap towels were left in the patient. Decision was made to leave her with an open abdomen and come back in 1 to 2 days for anastomosis and closure. Her bowels have swollen too much to primarily close her abdomen. Wet laparotomy towels were placed over the intestines and a plastic sheet from the fluid warmer, which were sterile, was placed over the moist laparotomy pads multiple small holes were cut into the plastic sheet. A wound VAC was then placed over the plastic sheet and put 200 mm of suction. Prognosis continues to be extremely poor. Patient was wheeled into the ICU still in critical condition.
[2021-07-13 17:51] LABS: Basophils % 0.2 %; Eosinophils % 0.4 %; Hemoglobin 9.2 g/dL (11.5-15.3); Lymphocytes # 1.1 10^3/uL (0.8-4.8); Lymphocytes % 20.1 %; Mean Corpuscular HGB Conc 31.7 g/dL (30.0-36.0); Mean Corpuscular Hemoglobin 29.7 pg (28.0-34.0); Mean Corpuscular Volume 93.5 fl (81-99); Mean Platelet Volume 10.8 fL (7.4-10.4); Monocytes # 0.5 10^3/uL (0.2-0.9); Neutrophils # 3.96 10^3/uL (1.8-7.7); Neutrophils % 69.9 %; Nucleated Red Blood Cells # 0.1 /100WBC; Nucleated Red Blood Cells % 1.2 %; Red Cell Distribution Width 14.2 % (12.1-15.1); White Blood Count 5.7 10^3/uL (4.0-10.0)
[2021-07-13 17:56] LABS: Platelet Count 13 10^3/cmm (130-400)
[2021-07-13 18:03] LABS: INR 1.95 (0.8-1.2)
[2021-07-13 18:10] LABS: Albumin Level 1.7 g/dL (3.5-5.2); Anion Gap 21.4 (5-19); Blood Urea Nitrogen 16 mg/dL (8-23); Calcium 8.7 mg/dL (8.5-10.5); Carbon Dioxide 15 mmol/L (22-29); Chloride 110 mmol/L (98-107); Glomerular Filtration Rate 56.2 mL/min (90-130); Glucose 176 mg/dL (65-115); Phosphorus 5.4 mg/dL (2.5-4.5); Potassium 4.4 mmol/L (3.5-5.1); Sodium 142 mmol/L (136-145)
--- NOTE | 2021-07-13 18:20 | PC.NURSE ---
Pt was transferred to ICU from surgery by staff at 1725. Pt was on ventilator with only levo and vaso running and once in room Doctor Hamzah gave verbal order to start an epi drip. All pressers maxed out. Would vac canister changed as soon as pt placed in room. Surgery brought a bag of blood and it was verified by 2nd nurse and given per orders. Pupils are dilated and fixed and pt appears to be jaundiced. New orders placed. See order list. Family is at bedside and updated on Pt's condition.
[2021-07-13] MEDS: EPINEPHrine 2.5 MG in sodium chloride 0.9% 250 ML 60 MG IV ×2 (18:58→22:14)
[2021-07-13] MEDS: sodium chloride 0.9% 1,000 ML 999 ML IV (18:58)
[2021-07-13] MEDS: sodium chloride 0.9% (100 ml) 100 ML ×2 (19:35→21:07)
[2021-07-13] MEDS: DOPamine drip 400 MG/250 ML PREMIX 23.21 MG IV (21:08)
[2021-07-13 21:20] LABS: Hemoglobin 13.5 g/dL (11.5-15.3)
[2021-07-13 21:22] LABS: Alanine Aminotransferase 23 U/L (0-33); Albumin Level 1.9 g/dL (3.5-5.2); Alkaline Phosphatase 41 IU/L (35-105); Anion Gap 31.8 (5-19); Aspartate Amino Transferase 105 U/L (0-32); Blood Urea Nitrogen 16 mg/dL (8-23); Chloride 106 mmol/L (98-107); Globulin 1.2 g/dL (1.3-4.6); Glomerular Filtration Rate 45.5 mL/min (90-130); Glucose 134 mg/dL (65-115); Magnesium 1.8 mg/dL (1.7-2.3); Osmolality Calculated 297 mOsm/kg (285-295); Potassium 4.8 mmol/L (3.5-5.1); Sodium 142 mmol/L (136-145); Total Bilirubin 4.6 mg/dL (0.15-1.2); Total Protein 3.1 g/dL (6.6-8.7)
[2021-07-13 21:26] LABS: Carbon Dioxide 9 mmol/L (22-29)
[2021-07-13 21:40] LABS: ABG PCO2 44.6 mmHg (35-45); Alveolar-Arterial Oxygen Gradi 12.5 mmHg (5-10); Arterial Blood Gas Hematocrit 38.8 % (37-47); Base Excess ABG -22.7 mmol/L (-2.0-2.0); Blood Gas Sample Type Arterial; Carboxyhemoglobin 2.1 %THgb (0.4-20.1); HCO3 ABG 9.3 mmol/L (22-26); HGB O2 Sat 86.8 % (95-100); Ionized Calcium Level - ABG 0.9 mmol/L (1.1-1.4); Methemoglobin 1.3 % (0.4-1.5); Oxygen Device VENT; Oxygen Saturation ABG 89.8; PO2 ABG 62.3 mmHg (80.0-100.0); Potassium Level - ABG 4.6 mmol/L (3.5-5.0); Total Hemoglobin 12.7 g/dL (12-16)
[2021-07-13 21:42] LABS: ABG PH Result 6.93 (7.35-7.45)
[2021-07-13 22:22] LABS: HIV 1 & 2 Antibody Non-Reactive (Non-Reactiv); HIV 1 & 2 Antigen Non-Reactive (Non-Reactiv)
[2021-07-13] MEDS: calcium gluconate 0.9% NaCL 1 GM/50 ML PREMIX IV ×2 (22:39→23:13)
[2021-07-13 22:51] LABS: Hepatitis B Surface Antigen Non-Reactive (Nonreactive); Hepatitis C Virus Antibody Non-Reactive (Nonreactive)
[2021-07-14] VITALS (25 sets, daily range): BP systolic 63–107; BP diastolic 31–53; PULSE 59–78; RESP 16–19; TEMP 33.6; O2SAT 90; BMI 49.1
--- NOTE | 2021-07-14 00:27 | PC.NURSE ---
Addendum entered by Rachell Vieyra RN 07/14/21 00:29: Witnessed by Rachell Vieyra RN Original Note: fentanyl 36ml wasted
--- NOTE | 2021-07-14 00:42 | PC.NURSE ---
Addendum entered by Patience Estevez RN 07/14/21 01:21: 07/14/2021 0111 2L NS bolus ordered. 07/14/2021111 family called and updated on pt changes Addendum entered by Patience Estevez RN 07/14/21 01:11: 07/14/2021110 made aware of HR 40's and BP 50's over 26. Original Note: 1916 voalted and updated on pt current gtts 10mg of EPI, 20mg of Levo, and 0.1mg of vaso and VS BP is 85/52 (64) on ART line and HR of 84 on monitor 07/13/21, 19:18 updated on VS, low temp and blood transfusion in progress. BP 66/40 (49) art line pressure bagging 1 unit PRBC in now Order recieved for CBC 1 hr post transfusion. 07/13/21, 19:50 made aware of ana red blood coming from her ABD wound vac about 450ml out since 189907/13/21, 20:29 MD ordered dopamine and CMP 07/13/21, 20:55 critical CO2 of 9 reported to MD 07/13/21, 21:29 ABG ordered 07/13/21, 21:29 made aware of zero urine output so far this shift 07/13/21, 21:43 Orders received for bicarb gtt 07/13/21, 21:45 ionized ca of 0.9 was reported 07/13/21, 21:56 Orders received for calcium gluconate 2g iv x 1 07/13/21, 21:59 updated on 1950ml out from her ABD wound vac ana red blood since 1899 and unable to obtain SPO2 reading 07/13/21, 23:26 CBC ordered at 0200
[2021-07-14] MEDS: sodium chloride 0.9% 1,000 ML 999 ML IV ×2 (01:20→01:49)
[2021-07-14 02:10] LABS: Glucose Point of Care 102 mg/dL (70-110)
[2021-07-14] MEDS: DOPamine drip 400 MG/250 ML PREMIX 81.24 MG IV (02:15)
[2021-07-14] MEDS: piperacillin-tazobactam 3.375 GM in sodium chloride 0.9% (plus) 100 ML IV (02:19)
[2021-07-14] MEDS: linezolid premix 600 MG/300 ML PREMIX 300 MG IV (02:20)
[2021-07-14 02:21] LABS: Hemoglobin 9.8 g/dL (11.5-15.3); Mean Corpuscular HGB Conc 30.6 g/dL (30.0-36.0); Mean Corpuscular Hemoglobin 28.8 pg (28.0-34.0); Mean Corpuscular Volume 94.1 fl (81-99); Mean Platelet Volume 9.9 fL (7.4-10.4); Platelet Count 100 10^3/cmm (130-400); Red Cell Distribution Width 14.5 % (12.1-15.1); White Blood Count 11.4 10^3/uL (4.0-10.0)
[2021-07-14] MEDS: hydrocortisone 100 mg/2 mL SDV 50 MG IVP (02:23)
[2021-07-14 02:41] LABS: Alanine Aminotransferase 36 U/L (0-33); Albumin Level 1.4 g/dL (3.5-5.2); Alkaline Phosphatase 42 IU/L (35-105); Anion Gap 30.8 (5-19); Aspartate Amino Transferase 180 U/L (0-32); Blood Urea Nitrogen 16 mg/dL (8-23); Calcium 8.7 mg/dL (8.5-10.5); Chloride 107 mmol/L (98-107); Globulin 1.2 g/dL (1.3-4.6); Glomerular Filtration Rate 41.5 mL/min (90-130); Glucose 111 mg/dL (65-115); Magnesium 1.7 mg/dL (1.7-2.3); Osmolality Calculated 294 mOsm/kg (285-295); Potassium 4.8 mmol/L (3.5-5.1); Sodium 141 mmol/L (136-145); Total Bilirubin 4.6 mg/dL (0.15-1.2); Total Protein 2.6 g/dL (6.6-8.7)
[2021-07-14 02:42] LABS: Ammonia 113 umol/L (11-51)
[2021-07-14 02:47] LABS: Creatinine Clr Calc Pharmacy 58.3242; Phosphorus 7.6 mg/dL (2.5-4.5)
[2021-07-14 02:48] LABS: Carbon Dioxide 8 mmol/L (22-29)
[2021-07-14 02:50] LABS: Slide Review Slide Review Perform
[2021-07-14] MEDS: ipratropium-albuterol 3 mL Neb INHALATION (02:50)
[2021-07-14 02:54] LABS: Absolute Segmented Neutrophil 6.3 10/cmm (1.6-7.1); Band Neutrophils Absolute 2.2 10^3/cmm (0.0-1.2); Eosinophils 0 %; Lymphocytes 19 %; Lymphocytes Absolute 2.7 10^3/cmm (1.2-3.4); Monocytes Absolute 0.1 10^3/cmm (0.1-0.6); Segmented Neutrophils 55 %; Total Cells Counted 100 (0-100)
[2021-07-14 02:55] LABS: Absolute Neutrophil 8.4 10^3/cmm (1.4-6.5); Burr Cells 2+; Lactate (Lactic Acid level) 17.6 mmol/L (0.5-2.2); Platelet Estimate Decreased (Normal)
[2021-07-14] MEDS: EPINEPHrine 2.5 MG in sodium chloride 0.9% 250 ML 60 MG IV ×2 (02:57→07:13)
--- NOTE | 2021-07-14 04:00 | XRR_ITS ---
PROCEDURE INFORMATION: Exam: XR Chest Exam date and time: 07/14/2021 4:29 AM Age: 61 years old Clinical indication: Dyspnea; Patient HX: Intubated; Additional info: Respiratory failure TECHNIQUE: Imaging protocol: XR of the chest. Views: 1 view. COMPARISON: CR (CHEST, ) 07/13/2021 6:56 AM FINDINGS: Tubes, catheters and devices: Endotracheal tube terminates approximately 4.4 cm above the floyd. Enteric tube passes into stomach. Left IJ central venous catheter terminates region of the mid SVC. Lungs: Similar patchy bilateral airspace opacities. Pleural spaces: Similar small right pleural effusion. No pneumothorax. Heart/Mediastinum: Unremarkable. No cardiomegaly. Bones/joints: Unremarkable. XR/XR chest 1V portable [id number] IMPRESSION: 1. No substantial interval change. Similar small right pleural effusion with patchy bilateral airspace opacities. 2. Endotracheal tube terminates approximately 4.4 cm above the floyd
[2021-07-14 05:01] LABS: ABG PCO2 31.1 mmHg (35-45); Alveolar-Arterial Oxygen Gradi 18.9 mmHg (5-10); Arterial Blood Gas Hematocrit 25.9 % (37-47); Base Excess ABG -27.7 mmol/L (-2.0-2.0); Blood Gas Sample Site ART; Blood Gas Sample Type Arterial; Carboxyhemoglobin 2.4 %THgb (0.4-20.1); HGB O2 Sat 85.7 % (95-100); Methemoglobin 1.2 % (0.4-1.5); Oxygen Device VENT; Oxygen Saturation ABG 88.9; PO2 ABG 63.9 mmHg (80.0-100.0); Potassium Level - ABG 3.9 mmol/L (3.5-5.0); Total Hemoglobin 8.4 g/dL (12-16)
[2021-07-14 05:02] LABS: ABG PH Result 6.82 (7.35-7.45)
[2021-07-14 05:13] LABS: Glucose Point of Care 161 mg/dL (70-110)
[2021-07-14] MEDS: sodium bicarbonate 8.4% 1 mEq/mL 50mL Syr 100 MEQ IVP ×2 (05:16→06:13)
[2021-07-14] MEDS: DOPamine drip 400 MG/250 ML PREMIX 92.85 MG IV ×3 (05:16→08:02)
--- NOTE | 2021-07-14 08:27 | PM.CCNAC ---
Critical Care Event Note Patient was examined this morning, family at bedside -Currently patient is off all sedating medications due to persistent hypotension -She is nonresponsive, does not withdraw from pain, pupils are fixed dilated, nonresponsive -She does not follow any commands -Her maps are persistently less than 65 -She is on 4 pressors, maximum dose, Levophed, dopamine, epi, vasopressin -She is in multiorgan failure -On examination she has mottling up to the level of the abdomen -She also has 2+ pitting edema, anasarca -Appears jaundice -On 35% FiO2 -Hypothermic, temperature 92.4 -Blood work this morning shows metabolic and lactic acidosis with pH of 6.8 -She received 10 units of blood, hemoglobin this morning 9.8 -2 units of platelets platelet count of 100 -ABG shows pH 6.82, PCO2 31.1, PO2 63.9, bicarb 5, 35% FiO2 tidal volume 400 PEEP of 5 -Carbadox at 8, anion gap 30.8, creatinine 1.3, lactate 17.6, bili 4.6, AST 180, ALT 36, ammonia 113 -Yesterday she had a heroic operation status post right hemicolectomy, open abdomen,, 3 L blood loss, required 9 units of RBCs, 6 units FFP, 2 pools of platelets -Sputum cultures growing yeast/MRSA, blood cultures growing MRSA, staph epidermidis, strep viridans -I advised family that she is in multiorgan failure, severe septic shock and hemorrhagic shock, on multiple pressors, has evidence of liver failure, kidney failure, hyperammonemia, lactic acidosis, severe acidemia -Above all I am worried about her neurologic function, her pupils are fixed dilated, she is nonresponsive, she does not follow commands off all sedating medications, all indicators of poor neurologic functioning. However I did advise family that she is in severe septic shock, she does have hyperammonemia, which could affect her neurologic functioning. -I advised family that above all her status is critical, prognosis is poor, -I advised that she has a high likelihood of clinical deterioration she is already critically ill, -I am concerned that she likely will require dialysis at some point, telemetry with acidemia, -At this point she remains critically ill, be on more aggressive interventions as nothing else I can offer for her -I advised family that knowing all this information what with the patient is a knowing all this information, what would be her thoughts or wishes, and family said that she would not want to have any aggressive interventions, she would want to pass away comfortably -Overall I think that her likelihood of meaningful recovery is fairly unlikely however I could continue interventions versus medication or comfort -Patient's daughter is at bedside, both daughters are present, they tells me that they had a discussion throughout the night, and they would like to proceed with comfort care -Discussed risks and benefits of comfort care meant, they maliciously, all questions answered agreed to proceed -I advised that she is on 4 pressors likely futile to stop these pressure she would pass away however she might require terminal extubation -Nonetheless we will make her comfortable, ease her pain ease her suffering throughout the process -We will proceed with comfort care -I was notified the patient is a organ donor, they are coming to evaluate her The high probability of a clinically significant, sudden or life threatening deterioration of the patient's [] system(s) required my full and direct attention, intervention and personal management. The critical care time is as shown. 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
[2021-07-14] MEDS: LORazepam 2 mg/mL INJ 1 mL IVP (10:00)
[2021-07-14] MEDS: morphine 4 mg/mL SDV 1 mL IVP (10:00)
--- NOTE | 2021-07-14 10:09 | PC.RESP ---
pt terminally extubated per family wishes
--- NOTE | 2021-07-14 10:35 | PC.SOCIAL ---
IMM Update pg 2 of IMM not updated. Patient has been transitioned to comfort care measures.
--- NOTE | 2021-07-14 11:08 | PC.NURSE ---
[facility] Elisabeth, notified and approved start of comfort care measures. 1008 all pressure support stopped per provider order and start of comfort care. 4mg of morphine given and 2mg Ativan given. Patient extubated to RA. 2RN, 1 RT, and family at bedside. Patient passed at 1023 with family at bedside. See chart for cardiac strip. [facility] notified of TOD at 1055.
--- NOTE | 2021-07-14 11:58 | PC.NURSE ---
Patient with home staff at 1144.
--- NOTE | 2021-07-14 13:02 | P.DES_ITS ---
Discharge Providers DDS Date of Admission: 07/07/21 12:20 Date Summary Completed: 07/14/21 Attending Provider at Admission: Matias Sheikh MD Attending Provider at Discharge: Luis Daniel Walsh MD Primary Care Provider: ISABELLE Browne Diagnoses Hospital Diagnoses (1) Septic shock: (2) Perforated viscus: (3) Hepatic encephalopathy: (4) Alcoholic hepatitis: (5) Acute and chronic respiratory failure with hypoxia: (6) Lactic acidosis: (7) Acute kidney injury: (8) Pneumonia: (9) COPD (chronic obstructive pulmonary disease): Reason for Visit Reason for Visit AMS Summary Summary Summary: This is a 61-year-old female with a past medical history of alcohol abuse, anxiety and depression, CAD status post 2 stents, COPD, smoker, history of hypertension, hepatic steatosis, SVETLANA, who presented to [facility] for confusion Patient had a prolonged and complicated hospitalization, please look at progress notes for further details -Patient was admitted to [facility] for acute encephalopathy, secondary to metabolic encephalopathy, infectious encephalopathy, hepatic encephalopathy secondary to alcoholism she also had pneumonia on admission, concerns for bacteremia on admission -Concerns of alcohol withdrawal and alcoholism on admission -Encephalopathy secondary to staph bacteremia, MRSA pneumonia received broad- spectrum antibiotic therapy -Had a history of chronic right pleural effusion with history of COVID in August 2020, status post right thoracoscopy with lysis of adhesions decortication with tube thoracostomy on April 15, 2021 at [facility] -Was started on lactulose, received broad-spectrum of antibiotic therapy, clinically monitored, pulmonary critical care consulted -She was monitored in the ICU, Mentation monitored -She is subsequently found to have -She was found to have septic shock secondary to perforated viscus, general surgery consulted -She also developed acute on chronic respiratory failure, requiring intubation, mechanical ventilation, pulmonary critical care was consulted For her MRSA pneumonia, MRSA positive sputum cultures, receiving broad-spectrum antibiotic therapy -She also developed lactic acidosis secondary to pneumonia, perforated viscus -She also had JESIKA she had MRSA bacteremia, strep viridans, coagulase-negative staph bacteremia -She also thrombocytopenia sec to liver dysfunction, some component related to DIC -Had coagulopathy secondary to liver dysfunction, also some correlated to DIC -530 degenerative status post exploratory laparotomy transverse colon resection, transverse colon was friable, consistent with diffuse pneumatosis of the right and transverse colon, areas of perforation seen, 2 more tiny perforations were found to be leaking stool just proximal to the resected transverse colon, plans for repeat laparotomy in 24-48 hrs. -July 13, 2021-Patient had open abdomen, status post right hemicolectomy control of mesenteric bleeding, status post 9 units PRBC, 6 units FFP, 2 units platelets received 10 mics of Levophed, wound VAC in place -This patient has septic shock secondary to bowel perforation, perforated viscus, MRSA pneumonia, multiorganism bacteremia, lower extremity wounds -On multiple pressors -Coagulopathy and thrombocytopenia -Hemorrhagic shock secondary to mesenteric bleeding, status post 9 units PRBC, 6 units FFP -Acute hypoxic hypercarbic respiratory failure requiring intubation mechanical ventilation -Persistent acute encephalopathy multifactorial secondary to metabolic, infectious, hepatic, concerns for anoxic brain injury given the fixed dilated pupils -Also have metabolic acidosis requiring bicarb drip, possibly requiring dialysis -Remained critically ill, prognosis poor, ventilator dependent, pressor dependent, on IV antibiotics Patient was examined this morning 07/14/2021 family at bedside -Currently patient is off all sedating medications due to persistent hypotension -She is nonresponsive, does not withdraw from pain, pupils are fixed dilated, nonresponsive -She does not follow any commands -Her maps are persistently less than 65 -She is on 4 pressors, maximum dose, Levophed, dopamine, epi, vasopressin -She is in multiorgan failure -On examination she has mottling up to the level of the abdomen -She also has 2+ pitting edema, anasarca -Appears jaundice -On 35% FiO2 -Hypothermic, temperature 92.4 -Blood work this morning shows metabolic and lactic acidosis with pH of 6.8 -She received 10 units of blood, hemoglobin this morning 9.8 -2 units of platelets platelet count of 100 -ABG shows pH 6.82, PCO2 31.1, PO2 63.9, bicarb 5, 35% FiO2 tidal volume 400 PEEP of 5 -Carbadox at 8, anion gap 30.8, creatinine 1.3, lactate 17.6, bili 4.6, AST 180, ALT 36, ammonia 113 -Yesterday she had a heroic operation status post right hemicolectomy, open abdomen,, 3 L blood loss, required 9 units of RBCs, 6 units FFP, 2 pools of platelets -Sputum cultures growing yeast/MRSA, blood cultures growing MRSA, staph epidermidis, strep viridans -I advised family that she is in multiorgan failure, severe septic shock and hemorrhagic shock, on multiple pressors, has evidence of liver failure, kidney failure, hyperammonemia, lactic acidosis, severe acidemia -Above all I am worried about her neurologic function, her pupils are fixed dilated, she is nonresponsive, she does not follow commands off all sedating medications, all indicators of poor neurologic functioning.? However I did advise family that she is in severe septic shock, she does have hyperammonemia, which could affect her neurologic functioning. -I advised family that above all her status is critical, prognosis is poor, -I advised that she has a high likelihood of clinical deterioration she is already critically ill, -I am concerned that she likely will require dialysis at some point, telemetry with acidemia, -At this point she remains critically ill, be on more aggressive interventions as nothing else I can offer for her -I advised family that knowing all this information what with the patient is a knowing all this information, what would be her thoughts or wishes, and family said that she would not want to have any aggressive interventions, she would want to pass away comfortably -Overall I think that her likelihood of meaningful recovery is fairly unlikely however I could continue interventions versus medication or comfort -Patient's daughter is at bedside, both daughters are present, they tells me that they had a discussion throughout the night, and they would like to proceed with comfort care -Discussed risks and benefits of comfort care meant, they maliciously, all questions answered agreed to proceed -I advised that she is on 4 pressors likely futile to stop these pressure she would pass away however she might require terminal extubation -Nonetheless we will make her comfortable, ease her pain ease her suffering throughout the process -We will proceed with comfort care -I was notified the patient is a organ donor, they are coming to evaluate her -Time of 07/14/2021 at 10:23 AM Additional Data Confirmation of as documented by pronouncing clinician: no pulse, no respirations and pupils fixed and dilated Family: at bedside Additional persons at bedside: nursing staff Attending/PCP notified?: I am attending Was code activated?: No Advance directives?: No Discharge Plan Discharge Patient Disposition: Condition: Stable Prescriptions: No Action (DME) lace up ankle brace See Rx Instructions .Route .MEDSUPPLY Qty: 1 0RF Rx Instructions: As directed (DME) inogen system See Rx Instructions .Route .MEDSUPPLY Qty: 1 0RF Rx Instructions: As directed inogen system 2 liters continuous 24 hour folic acid 1 mg tablet 1 mg PO DAILY 0RF albuterol sulfate [Ventolin HFA] 90 mcg/actuation HFA aerosol inhaler 1 puff INHALATION Q6H PRN (Reason: SHORTNESS OF BREATH/WHEEZING) Qty: 8.5 2RF albuterol sulfate 2.5 mg /3 mL (0.083 %) solution for nebulization 2.5 mg INHALATION Q4H PRN (Reason: Shortness Of Breath) Qty: 75 2RF hydroxyzine HCl 50 mg tablet 50 mg PO BID PRN (Reason: anxiety) Qty: 60 2RF rosuvastatin 40 mg tablet 40 mg PO BEDTIME@2200 Qty: 30 2RF Incruse Ellipta 62.5 mcg/actuation blister with device 1 inh INHALATION DAILY Qty: 30 2RF cyclobenzaprine 10 mg tablet 10 mg PO TID PRN (Reason: Muscle Spasm) Qty: 90 2RF MediHoney (honey) 100 % paste 1 applic topical BID Qty: 103 0RF ondansetron 4 mg tablet,disintegrating 4 mg PO TID PRN (Reason: nausea and vomiting) 0RF esomeprazole magnesium [Nexium] 20 mg capsule,delayed release(DR/EC) 20 mg PO DAILY Qty: 30 1RF (DME) CPAP machine and supplies See Rx Instructions .ROUTE .MEDSUPPLY Qty: 1 0RF Rx Instructions: As directed potassium chloride 20 mEq tablet extended release 20 meq PO DAILY Qty: 30 1RF (DME) Wheelchair See Rx Instructions .ROUTE .MEDSUPPLY Qty: 1 0RF Rx Instructions: As directed bupropion HCl [Wellbutrin SR] 150 mg tablet sustained-release 12 hr 150 mg PO Q12H Qty: 60 1RF Rx Instructions: Stop Cymbalta fluoxetine [Prozac] 40 mg capsule 40 mg PO BID Qty: 60 1RF Rx Instructions: administer in the morning and at noon/midday carvedilol 25 mg tablet 12.5 mg PO BID 0RF sucralfate 1 gram Tablet 1 g PO QID 0RF furosemide 20 mg tablet 20 mg PO DAILY 0RF promethazine 25 mg tablet 25 mg PO Q6H PRN (Reason: nausea and vomiting) Qty: 20 0RF tramadol 50 mg tablet 50 mg PO Q4H PRN (Reason: Moderate Pain (Scale Score 5-6)) 0RF gabapentin 300 mg capsule 300 mg PO TID 0RF clopidogrel 75 mg tablet 75 mg PO DAILY 0RF DS Attestations Time Spent in /Discharge Care*: critical care time Critical Care Time (min): 55 Quality - AMI: AMI present?: No Quality - Stroke: CVA present?: No Quality - VTE: VTE present?: No Coding Level of Care Code Acute Probation Supervisor for [facility] Fwd Diagnoses Septic shock A41.9; R65.21 Perforated viscus R19.8 Hepatic encephalopathy K72.90 Alcoholic hepatitis K70.10 Acute and chronic respiratory failure with hypoxia J96.21 Lactic acidosis E87.2 Acute kidney injury N17.9 Pneumonia J18.9 COPD (chronic obstructive pulmonary disease) J44.9
[2021-07-15 14:03] LABS: ABG PCO2 49.1 mmHg (35-45); Arterial Blood Gas Hematocrit 24.3 % (37-47); Base Excess ABG -13.1 mmol/L (-2.0-2.0); Blood Gas Allen Test Pos; Blood Gas Sample Type Arterial; Carboxyhemoglobin 0.7 %THgb (0.4-20.1); HCO3 ABG 15.6 mmol/L (22-26); HGB O2 Sat 98.3 % (95-100); Ionized Calcium Level - ABG 0.9 mmol/L (1.1-1.4); Potassium Level - ABG 4.3 mmol/L (3.5-5.0); Total Hemoglobin 7.9 g/dL (12-16)
[2021-07-15 14:48] LABS: ABG PH Result 7.11 (7.35-7.45)
[2021-07-16 19:32] LABS: Copper Level 31 mcg/dL (70-175)
== END 2021-07-14 11:44 | disposition expired | DRG 423 ==
LOC: ER 09:12 → ICU 12:46
PROVIDERS: Internal Medicine; Internal Medicine Critical Care Medicine; Internal Medicine Pulmonary Disease; Surgery; Admitting Provider Internal Medicine; Emergency Provider Family Medicine; PCP Nurse Practitioner; Visit Provider Family Medicine
PROC: 0WJH0ZZ Inspection of Retroperitoneum, Open Approach (ICD-10-PCS; CPT 49000; principal; 2021-07-11 18:30)
DX: K70.40 Alcoholic hepatic failure without coma (principal); R65.21 Severe sepsis with septic shock; A41.9 Sepsis, unspecified organism; J96.21 Acute and chronic respiratory failure with hypoxia; K63.1 Perforation of intestine (nontraumatic); G93.41 Metabolic encephalopathy; J15.212 Pneumonia due to Methicillin resistant Staphylococcus aureus; F10.239 Alcohol dependence with withdrawal, unspecified; K76.6 Portal hypertension; E87.2 Acidosis; D68.4 Acquired coagulation factor deficiency; J90 Pleural effusion, not elsewhere classified; N17.9 Acute kidney failure, unspecified; Z68.42 Body mass index [BMI] 45.0-49.9, adult; K70.10 Alcoholic hepatitis without ascites; E87.6 Hypokalemia; M79.89 Other specified soft tissue disorders; F41.8 Other specified anxiety disorders; I25.10 Atherosclerotic heart disease of native coronary artery without angina pectoris; Z95.5 Presence of coronary angioplasty implant and graft; J42 Unspecified chronic bronchitis; F17.210 Nicotine dependence, cigarettes, uncomplicated; Z86.16 Personal history of COVID-19; E16.1 Other hypoglycemia; I73.9 Peripheral vascular disease, unspecified; Z66 Do not resuscitate; I95.9 Hypotension, unspecified; R68.0 Hypothermia, not associated with low environmental temperature; Z51.5 Encounter for palliative care; D69.6 Thrombocytopenia, unspecified; S80.822A Blister (nonthermal), left lower leg, initial encounter; S80.821A Blister (nonthermal), right lower leg, initial encounter; R31.9 Hematuria, unspecified; Z86.14 Personal history of Methicillin resistant Staphylococcus aureus infection; Z96.643 Presence of artificial hip joint, bilateral; Z98.84 Bariatric surgery status; K59.01 Slow transit constipation; M19.90 Unspecified osteoarthritis, unspecified site; G47.33 Obstructive sleep apnea (adult) (pediatric); E66.01 Morbid (severe) obesity due to excess calories; E78.2 Mixed hyperlipidemia; M51.16 Intervertebral disc disorders with radiculopathy, lumbar region; I10 Essential (primary) hypertension; R57.8 Other shock
CPT/HCPCS: 36415; 36416; 36430; 36600; 51702; 70450; 71045; 73610; 73630; 74018; 74150; 74176; 76705; 80048; 80051; 80053; 80069; 80074; 80307; 81001; 82140; 82248; 82330; 82525; 82550; 82607; 82805; 82962; 83605; 83690; 83735; 83880; 84100; 84132; 84145; 84439; 84443; 84478; 84481; 84484; 85007; 85018; 85025; 85362; 85378; 85384; 85610; 85730; 86803; 86850; 86900; 86920; 86927; 87040; 87070; 87077; 87106; 87150; 87186; 87205; 87340; 87641; 87806; 88309; 93005; 93306; 93970; 94002; 94003; 94640; 94799; 96365; 96366; 96367; 96372; 99285; A4570; C9113; J0171; J0610; J1265; J1644; J1720; J1940; J2020; J2060; J2250; J2270; J2370; J2543; J2704; J3010; J3411; J3480; J3490; J7030; J7050; J7168; J7626; J7799; P9016; P9017; P9035; P9041; P9047